=== PATIENT | male | born 1940 | race Caucasian/White ===

== ENCOUNTER 2019-03-11 12:37 | Inpatient (IN) | payer MEDICARE, BC ==
[~2019-03-11] VITALS: Ht 182.9 cm; Wt 86.0 kg
[2019-03-11] MEDS ORDERED: IPRATRPIUM/ALBUTEROL 0.5/2.5MG 3 ML NEBU. NEB ONE (13:15)
--- NOTE | 2019-03-11 13:21 | PHYS DOC ---
Adult General Chief Complaint Chief Complaint: SHORTNESS OF BREATH HPI HPI Patient is a 79-year-old male who presents with complaint of shortness of breath for the last several days but has been worse since Thursday. Patient states that shortness of breath is worsened with exertion. He denies any chest pain. Patient recently had been started on 2 new medications to include an antibiotic as well as Coreg. Patient does have a history of COPD. Patient's indicates that usually the COPD as well managed. Patient is had no fever. Patient was being seen over at a new doctor's office and was instructed to come to the emergency room because of elevated creatinine as well as concerns for possible pneumonia.[] Review of Systems Review of Systems Constitutional: Denies fever or chills [] Respiratory: Positive cough and shortness of breath [] Cardiovascular: No additional information not addressed in HPI [] GI: Denies abdominal pain, nausea, vomiting or diarrhea [] Integument: Denies rash or skin lesions [] Neurologic: Denies headache, focal weakness or sensory changes [] All other systems were reviewed and found to be within normal limits, except as documented in this note. Current Medications Current Medications Current Medications Medications (Trade) Dose Ordered Sig/Diane Start Time Stop Time Status Last Admin Dose Admin Albuterol/ Ipratropium (Duoneb) 3 ml 1X ONCE 03/11/19 13:15 03/11/19 13:27 DC 03/11/19 13:28 3 ML Allergies Allergies Allergies Coded Allergies Type Severity Reaction Last Updated Verified regadenoson Allergy Severe Anaphylaxis 03/11/19 Yes Nitrofuran Analogues Allergy Mild rash 03/11/19 Yes dutasteride Allergy Mild rash 03/11/19 Yes finasteride Allergy Mild hives 03/11/19 Yes Iodinated Contrast Media Allergy Unknown 03/11/19 Yes NSAIDS (Non-Steroidal Anti-Inflamma Adverse Reaction Unknown 03/11/19 Yes Uncoded Allergies Type Severity Reaction Last Updated Verified diuretics Adverse Reaction Unknown 03/11/19 Physical Exam Physical Exam Constitutional: Well developed, well nourished, no acute distress, non-toxic appearance. [] HENT: Normocephalic, atraumatic, bilateral external ears normal, oropharynx moist, no oral exudates, nose normal. [] Eyes: PERRLA, EOMI, conjunctiva normal, no discharge. [] Neck: Normal range of motion, no tenderness, supple. [] Cardiovascular: Mildly bradycardic rate with regular rhythm[] Lungs & Thorax: Rales are noted in the lung bases bilaterally to auscultation [] Abdomen: Bowel sounds normal, soft, no tenderness. [] Skin: Warm, dry, no erythema, no rash. [] Extremities: No tenderness, no cyanosis, no clubbing, ROM intact, with 3+ lower extremity pitting edema. [] Neurologic: Alert and oriented X 3, no focal deficits noted. [] Current Patient Data Vital Signs Vital Signs Date Time Temp Pulse Resp B/P (MAP) Pulse Ox O2 Delivery O2 Flow Rate FiO2 03/11/19 13:29 97 Room Air 03/11/19 13:00 98.0 50 20 163/62 (95) 98.0 Lab Values Laboratory Tests Test 03/11/19 13:45 03/11/19 14:40 White Blood Count 4.6 x10^3/uL (4.0-11.0) Red Blood Count 2.51 x10^6/uL (4.30-5.70) L Hemoglobin 7.7 g/dL (13.0-17.5) L Hematocrit 22.7 % (39.0-53.0) L Mean Corpuscular Volume 91 fL (79-100) Mean Corpuscular Hemoglobin 31 pg (25-35) Mean Corpuscular Hemoglobin Concent 34 g/dL (31-37) Red Cell Distribution Width 16.0 % (11.5-14.5) H Platelet Count 136 x10^3/uL (140-400) L Neutrophils (%) (Auto) 64 % (31-73) Lymphocytes (%) (Auto) 20 % (24-48) L Monocytes (%) (Auto) 8 % (0-9) Eosinophils (%) (Auto) 7 % (0-3) H Basophils (%) (Auto) 1 % (0-3) Neutrophils # (Auto) 3.0 x10^3/uL (1.8-7.7) Lymphocytes # (Auto) 0.9 x10^3/uL (1.0-4.8) L Monocytes # (Auto) 0.3 x10^3/uL (0.0-1.1) Eosinophils # (Auto) 0.3 x10^3/uL (0.0-0.7) Basophils # (Auto) 0.0 x10^3/uL (0.0-0.2) Sodium Level 137 mmol/L (136-145) Potassium Level 3.9 mmol/L (3.5-5.1) Chloride Level 105 mmol/L (98-107) Carbon Dioxide Level 24 mmol/L (21-32) Anion Gap 8 (6-14) Blood Urea Nitrogen 37 mg/dL (8-26) H Creatinine 3.8 mg/dL (0.7-1.3) H Estimated GFR (Cockcroft-Gault) 15.5 BUN/Creatinine Ratio 10 (6-20) Glucose Level 142 mg/dL (70-99) H Lactic Acid Level 1.3 mmol/L (0.4-2.0) Calcium Level 7.5 mg/dL (8.5-10.1) L Total Bilirubin 0.2 mg/dL (0.2-1.0) Aspartate Amino Transferase (AST) 22 U/L (15-37) Alanine Aminotransferase (ALT) 18 U/L (16-63) Alkaline Phosphatase 94 U/L (46-116) Troponin I Quantitative 0.029 ng/mL (0.000-0.055) CS-Rdi-K-Type Natriuretic Peptide 7222 pg/mL (0-449) H Total Protein 5.7 g/dL (6.4-8.2) L Albumin 2.3 g/dL (3.4-5.0) L Albumin/Globulin Ratio 0.7 (1.0-1.7) L Urine Collection Type U cath Urine Color Yellow Urine Clarity Cloudy Urine pH 6.5 Urine Specific Hibbs 1.020 Urine Protein >=300 mg/dL (NEG-TRACE) Urine Glucose (UA) 100 mg/dL (NEG) Urine Ketones (Stick) Negative mg/dL (NEG) Urine Blood Small (NEG) Urine Nitrite Negative (NEG) Urine Bilirubin Negative (NEG) Urine Urobilinogen Dipstick 0.2 mg/dL (0.2 mg/dL) Urine Leukocyte Esterase Negative (NEG) Urine RBC 3-5 /HPF (0-2) Urine WBC Rare /HPF (0-4) Urine Squamous Epithelial Cells Occ /LPF Urine Amorphous Sediment Present /HPF Urine Bacteria 0 /HPF (0-FEW) Laboratory Tests 03/11/19 13:45 Laboratory Tests 03/11/19 13:45 EKG EKG [] Radiology/Procedures Radiology/Procedures [] Impressions: PROCEDURE: PORTABLE CHEST 1V Examination: PORTABLE CHEST 1V History: Shortness of breath Comparison/Correlation: None Findings: Portable upright frontal view the chest was obtained. Heart size is slightly enlarged. No pneumothorax. Subtle blunting of the left costophrenic angle is noted. Mild left basilar atelectasis or infiltrate noted. Bony structures are unremarkable. Impression: Left medial basilar retrocardiac atelectasis or possibly infiltrate. Electronically signed by: Luke Laguna MD (03/11/2019 1:55 PM) [facility] Course & Med Decision Making Course & Med Decision Making Pertinent Labs and Imaging studies reviewed. (See chart for details) [] Dragon Disclaimer Dragon Disclaimer This electronic medical record was generated, in whole or in part, using a voice recognition dictation system. Departure Departure Impression: Primary Impression: [id number] kidney injury Additional Impression: Dyspnea Disposition: 09 ADMITTED INPATIENT Admitting Physician: TYSON (Dr. Wilburn) Condition: IMPROVED Problem Qualifiers Primary Impression: Hvrao-[id number] kidney injury Acute renal failure type: unspecified Chronic kidney disease stage: un specified stage Qualified Codes: N17.9 - Acute kidney failure, unspecified; N18.9 - Chronic kidney disease, unspecified Additional Impression: Dyspnea Dyspnea type: unspecified Qualified Codes: R06.00 - Dyspnea, unspecified NANCI DE LA VEGA Jr. DO Mar 11, 2019 13:21
--- NOTE | 2019-03-11 13:26 | EKG ---
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
[2019-03-11 13:57] LABS: BASO % 1 % (0-3); EOS # 0.3 x10^3/uL (0.0-0.7); EOS % 7 % (0-3); HEMATOCRIT 22.7 % (39.0-53.0); HEMOGLOBIN 7.7 g/dL (13.0-17.5); LYMPH # 0.9 x10^3/uL (1.0-4.8); LYMPH % 20 % (24-48); MEAN CORPUSCULAR HEMOGLOBIN 31 pg (25-35); MEAN CORPUSCULAR HGB CONC 34 g/dL (31-37); MEAN CORPUSCULAR VOLUME 91 fL (79-100); MONO # 0.3 x10^3/uL (0.0-1.1); MONO % 8 % (0-9); NEUT % 64 % (31-73); PLATELET COUNT 136 x10^3/uL (140-400); RED BLOOD COUNT 2.51 x10^6/uL (4.30-5.70); WHITE BLOOD COUNT 4.6 x10^3/uL (4.0-11.0)
--- NOTE | 2019-03-11 13:58 | RAD ---
Examination: PORTABLE CHEST 1V History: Shortness of breath Comparison/Correlation: None Findings: Portable upright frontal view the chest was obtained. Heart size is slightly enlarged. No pneumothorax. Subtle blunting of the left costophrenic angle is noted. Mild left basilar atelectasis or infiltrate noted. Bony structures are unremarkable. Impression: Left medial basilar retrocardiac atelectasis or possibly infiltrate. Electronically signed by: Luke Laguna MD (03/11/2019 1:55 PM) [facility]
[2019-03-11 14:07] LABS: CALCIUM 7.5 mg/dL (8.5-10.1); CREATININE 3.8 mg/dL (0.7-1.3); GFR 15.5; POTASSIUM 3.9 mmol/L (3.5-5.1)
[2019-03-11 14:13] LABS: ALBUMIN 2.3 g/dL (3.4-5.0); ALBUMIN/GLOBULIN RATIO 0.7 (1.0-1.7); TOTAL BILIRUBIN 0.2 mg/dL (0.2-1.0); TOTAL PROTEIN 5.7 g/dL (6.4-8.2)
[2019-03-11 14:50] LABS: BILIRUBIN,URINE NEGATIVE (NEG); CLARITY,URINE CLOUDY; COLOR,URINE YELLOW; NITRITE,URINE NEGATIVE (NEG); PH,URINE 6.5; PROTEIN,URINE >=300 mg/dL (NEG-TRACE); UROBILINOGEN,URINE 0.2 mg/dL (0.2 mg/dL)
[2019-03-11 15:02] LABS: SQUAMOUS EPITHELIAL CELL,UR OCC /LPF; WBC,URINE RARE /HPF (0-4)
[2019-03-11 15:03] LABS: AMORPHOUS SEDIMENT,UR PRESENT /HPF; BACTERIA,URINE 0 /HPF (0-FEW)
[2019-03-11] MEDS: IV NORMAL SALINE 1000ML BAG 1,000 ML IV SCH ×2 (16:37→19:09)
--- NOTE | 2019-03-11 18:50 | HP ---
ADMIT DATE: 03/11/2019 CHIEF COMPLAINT: Shortness of breath and weakness. HISTORY OF PRESENT ILLNESS: The patient is a pleasant 79-year-old male who has been developing shortness of breath with ambulation. He describes it as worse with movement, better with sitting still. He rates it at 8/10. He has some associated minimal edema. We did a chest x-ray here in the ER showing some vascular congestion. He has a baseline creatinine of 2.1. We did some labs showing a creatinine of 3.9, so he has a combination of heart failure and acute kidney injury. I discussed the case with ER physician. We are going to admit the patient and consult Nephrology and Cardiology. We hope to diurese him and we are giving fluids. PAST MEDICAL HISTORY: COPD and he continues to smoke, multiple allergies, hypertension, anxiety, CHF, atrial flutter, and atrial fibrillation. ALLERGIES: NSAIDs, NITROFURANTOIN, DIURETICS, and FINASTERIDE. FAMILY HISTORY: Coronary artery disease and his grandson apparently developed bad heart failure at a young age. SOCIAL HISTORY: He has been for 53 years. He does not drink, smoke, or take drugs. 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 MEDICATIONS: Reviewed. Please refer to the MRAD. He is on Coreg and aspirin. REVIEW OF SYSTEMS: GENERAL: He complains of weakness. SKIN: No bruising, hair changes or rashes. EYES: No blurred, double or loss of vision. NOSE AND THROAT: No history of nosebleeds, hoarseness or sore throat. HEART: No history of palpitations, chest pain or shortness of breath on exertion. LUNGS: He complains of shortness of breath. GASTROINTESTINAL: Denies changes in appetite, nausea, vomiting, diarrhea or constipation. GENITOURINARY: No history of frequency, urgency, hesitancy or nocturia. NEUROLOGIC: Denies history of numbness, tingling, tremor or weakness. PSYCHIATRIC: No history of panic, anxiety or depression. ENDOCRINE: No history of heat or cold intolerance, polyuria or polydipsia. EXTREMITIES: Denies muscle weakness, joint pain, pain on walking or stiffness. PHYSICAL EXAMINATION: VITALS: Temperature 98, pulse 50, respirations 20, blood pressure is 163/62, and O2 sat 97% on room air. GENERAL: He is alert, cooperative. His and daughter are present, they seem to be very good support for him. HEENT: Normal cephalic atraumatic, external auditory canals are patent EYES: Extraocular muscles are intact, pupils are equally round and reactive to light and accommodation MUSKULOSKELETAL: Well developed, well nourished, good range of motion ENDOCRINE: No thyromegaly was palpated LYMPHATICS: No cervical chain or axillary nodes were noted HEMATOPOIETIC: No bruising NECK: Supple, no JVD, no thyromegaly was noted. LUNGS: Bibasilar crackles, but they are fine. He has a slight wheeze on the right. HEART: Distant S1, S2 with a soft S3. ABDOMEN: Soft. EXTREMITIES: Trace edema. NEUROLOGIC: Normal speech, normal tone. A & O x3, moves all extremities, no obvious focal deficits. PSYCHIATRIC: He is a little anxious. SKIN: No ulcerations or rashes, good skin turgor, no jaundice. VASCULAR: Good capillary refill, neurovascular bundle appears to be intact. LABORATORY DATA: White count 4, hemoglobin 7.7, platelets 136. Electrolytes are normal other than his calcium level is low at 7.5. His BUN and creatinine are 37 and 3.8 respectively. Urinalysis: Small amount of blood, but otherwise negative. BNP is 7222. Chest x-ray shows vascular congestion by my eye. ASSESSMENT AND PLAN: Acute on chronic renal failure secondary to volume overload, anemia, hypocalcemia, and azotemia. These are all markers for chronic renal failure. At his age, using the Cockcroft-Gault formula, I estimate his GFR to be around 16. Consult Nephrology, consult Cardiology, cardiac monitoring. I suspect he will need an echocardiogram, home meds, DVT prophylaxis, and full code. PROGNOSIS: Long-term guarded. KONSTANTIN VILLATORO DO DR: LINDA/stephanie JOB#: [id number] / [id number]
[2019-03-11 19:15] VITALS: BP 172/62
[2019-03-11] MEDS: IPRATRPIUM/ALBUTEROL 0.5/2.5MG 3 ML NEBU. NEB SCH (19:45)
[2019-03-11] MEDS ORDERED: BUDE10.2 IH (22:03)
[2019-03-11] MEDS ORDERED: BUPR150T6 PO (22:03)
[2019-03-11] MEDS ORDERED: VENTOLIN HFA18 GM INH (22:03)
[2019-03-11] MEDS ORDERED: MULT-245 PO (22:03)
[2019-03-11] MEDS ORDERED: AMLO5TAB10 PO (22:03)
[2019-03-11] MEDS ORDERED: RIVA15TA PO (22:03)
[2019-03-11] MEDS ORDERED: SIMV20TA18 PO (22:03)
[2019-03-11] MEDS ORDERED: CARV6.2511 PO (22:03)
[2019-03-11] MEDS ORDERED: TAMS0.4C97 PO (22:03)
[2019-03-11] MEDS ORDERED: PANT40TA77 PO (22:03)
[2019-03-11] MEDS ORDERED: DIPH50CA PO (22:03)
[2019-03-11] MEDS ORDERED: diphenhydrAMINE HCL 25 MG CAPSULE PO PRN (22:30)
[2019-03-11] MEDS: amLODIPine BESYLATE 5 MG TABLET PO SCH (22:38)
[2019-03-11] MEDS: RIVAROXABAN 15 MG TABLET. PO SCH (22:38)
[2019-03-11] MEDS: TAMSULOSIN 0.4 MG CAP.ER.24H. PO SCH (22:38)
[2019-03-11] MEDS: SIMVASTATIN 20 MG TABLET PO SCH (22:38)
[2019-03-11 23:43] VITALS: BP 177/54
[2019-03-12] MEDS: IV NORMAL SALINE 1000ML BAG 1,000 ML IV SCH (00:22)
[2019-03-12 03:50] VITALS: BP 174/66
[2019-03-12 07:00] VITALS: BP 118/46
[2019-03-12 07:26] LABS: BASO % 0 % (0-3); EOS # 0.3 x10^3/uL (0.0-0.7); EOS % 6 % (0-3); HEMATOCRIT 22.8 % (39.0-53.0); HEMOGLOBIN 7.7 g/dL (13.0-17.5); LYMPH # 0.9 x10^3/uL (1.0-4.8); LYMPH % 15 % (24-48); MEAN CORPUSCULAR HEMOGLOBIN 31 pg (25-35); MEAN CORPUSCULAR HGB CONC 34 g/dL (31-37); MEAN CORPUSCULAR VOLUME 90 fL (79-100); MONO # 0.5 x10^3/uL (0.0-1.1); MONO % 8 % (0-9); NEUT # 4.4 x10^3/uL (1.8-7.7); NEUT % 71 % (31-73); PLATELET COUNT 144 x10^3/uL (140-400); RED BLOOD COUNT 2.52 x10^6/uL (4.30-5.70); RED CELL DISTRIBUTION WIDTH 15.9 % (11.5-14.5); WHITE BLOOD COUNT 6.2 x10^3/uL (4.0-11.0)
[2019-03-12 07:35] LABS: CALCIUM 7.9 mg/dL (8.5-10.1); CREATININE 3.9 mg/dL (0.7-1.3); GFR 15.1; POTASSIUM 3.9 mmol/L (3.5-5.1)
[2019-03-12] MEDS: IPRATRPIUM/ALBUTEROL 0.5/2.5MG 3 ML NEBU. NEB SCH ×2 (07:56→12:07)
[2019-03-12] MEDS: BUDESONIDE 0.5 MG/2 ML NEBU. NEB SCH ×2 (07:57→19:30)
[2019-03-12] MEDS: CARVEDILOL 6.25 MG TABLET. PO SCH ×2 (08:23→17:33)
[2019-03-12] MEDS: buPROPion XL 150 MG TAB.ER.24H. PO SCH (08:23)
[2019-03-12] MEDS: MULTIVITAMIN with MINERAL TABLET. PO SCH (08:23)
[2019-03-12] MEDS: PANTOPRAZOLE 40 MG TABLET.DR. PO SCH ×2 (08:23→17:33)
[2019-03-12] MEDS: amLODIPine BESYLATE 5 MG TABLET PO SCH ×2 (08:23→20:53)
[2019-03-12] MEDS: TAMSULOSIN 0.4 MG CAP.ER.24H. PO SCH ×2 (08:23→20:53)
[2019-03-12] MEDS ORDERED: NON FORMULARY ITEM (Albuterol Sulfate (Ventolin Hfa Inhaler) 2 PUFF) INH SCH (09:00)
[2019-03-12] MEDS ORDERED: NON FORMULARY ITEM (Budesonide/Formoterol Fumarate (Symbicort 160-4.5 Mcg Inhaler) 2 PUFF) IH SCH (09:00)
--- NOTE | 2019-03-12 09:52 | PDOC ---
PROGRESS NOTES History of Present Illness History of Present Illness ASSESSMENT Acute on chronic renal failure secondary to volume overload, anemia, hypocalcemia, azotemia. chronic renal failure. stage 4-5 hypoxic episode resolved Left medial basilar retrocardiac atelectasis or possibly infiltrate. PROTEINURIA admit Consult Nephrology, consult Cardiology, cardiac monitoring. echocardiogram, home meds, DVT prophylaxis, full code. pulm consult IS 36 min pt exam, chart review , pt exam, > 50% of time spent with exam, chart review, pt care coordination Vitals Vitals Vital Signs Date Time Temp Pulse Resp B/P (MAP) Pulse Ox O2 Delivery O2 Flow Rate FiO2 03/12/19 08:23 59 174/66 03/12/19 07:59 99 Room Air 03/12/19 07:00 98.0 16 2.0 98.0 Physical Exam Physical Exam GENERAL: He is alert, cooperative. His IS present, HEENT: Normal cephalic atraumatic, external auditory canals are patent EYES: Extraocular muscles are intact, pupils are equally round and reactive to light and accommodation MUSKULOSKELETAL: Well developed, well nourished, good range of motion ENDOCRINE: No thyromegaly was palpated LYMPHATICS: No cervical chain or axillary nodes were noted HEMATOPOIETIC: No bruising NECK: Supple, no JVD, no thyromegaly was noted. LUNGS: Bibasilar crackles, but they are fine. He has a slight wheeze on the right. HEART: Distant S1, S2 with a soft S3. ABDOMEN: Soft. EXTREMITIES: Trace edema. NEUROLOGIC: Normal speech, normal tone. A & O x3, moves all extremities, no obvious focal deficits. PSYCHIATRIC: He is a little anxious. SKIN: No ulcerations or rashes, good skin turgor, no jaundice. VASCULAR: Good capillary refill, neurovascular bundle appears to be intact. General: Alert, Oriented X3, Cooperative, No acute distress Heart: Regular rate, Normal S1 Lungs: Crackles Abdomen: Normal bowel sounds, Soft, No tenderness Extremities: No cyanosis Skin: No significant lesion Labs LABS PROCEDURE: PORTABLE CHEST 1V Examination: PORTABLE CHEST 1V History: Shortness of breath Comparison/Correlation: None Findings: Portable upright frontal view the chest was obtained. Heart size is slightly enlarged. No pneumothorax. Subtle blunting of the left costophrenic angle is noted. Mild left basilar atelectasis or infiltrate noted. Bony structures are unremarkable. Impression: Left medial basilar retrocardiac atelectasis or possibly infiltrate. Electronically signed by: Mindy Downey MD (03/11/2019 1:55 PM) [facility] DICTATED and SIGNED BY: MINDY DOWNEY MD DATE: 03/11/19 1351 Laboratory Tests Test 03/11/19 13:45 03/11/19 14:40 03/12/19 06:45 White Blood Count 4.6 x10^3/uL (4.0-11.0) 6.2 x10^3/uL (4.0-11.0) Red Blood Count 2.51 x10^6/uL (4.30-5.70) 2.52 x10^6/uL (4.30-5.70) Hemoglobin 7.7 g/dL (13.0-17.5) 7.7 g/dL (13.0-17.5) Hematocrit 22.7 % (39.0-53.0) 22.8 % (39.0-53.0) Mean Corpuscular Volume 91 fL (79-100) 90 fL (79-100) Mean Corpuscular Hemoglobin 31 pg (25-35) 31 pg (25-35) Mean Corpuscular Hemoglobin Concent 34 g/dL (31-37) 34 g/dL (31-37) Red Cell Distribution Width 16.0 % (11.5-14.5) 15.9 % (11.5-14.5) Platelet Count 136 x10^3/uL (140-400) 144 x10^3/uL (140-400) Neutrophils (%) (Auto) 64 % (31-73) 71 % (31-73) Lymphocytes (%) (Auto) 20 % (24-48) 15 % (24-48) Monocytes (%) (Auto) 8 % (0-9) 8 % (0-9) Eosinophils (%) (Auto) 7 % (0-3) 6 % (0-3) Basophils (%) (Auto) 1 % (0-3) 0 % (0-3) Neutrophils # (Auto) 3.0 x10^3/uL (1.8-7.7) 4.4 x10^3/uL (1.8-7.7) Lymphocytes # (Auto) 0.9 x10^3/uL (1.0-4.8) 0.9 x10^3/uL (1.0-4.8) Monocytes # (Auto) 0.3 x10^3/uL (0.0-1.1) 0.5 x10^3/uL (0.0-1.1) Eosinophils # (Auto) 0.3 x10^3/uL (0.0-0.7) 0.3 x10^3/uL (0.0-0.7) Basophils # (Auto) 0.0 x10^3/uL (0.0-0.2) 0.0 x10^3/uL (0.0-0.2) Sodium Level 137 mmol/L (136-145) 140 mmol/L (136-145) Potassium Level 3.9 mmol/L (3.5-5.1) 3.9 mmol/L (3.5-5.1) Chloride Level 105 mmol/L (98-107) 107 mmol/L (98-107) Carbon Dioxide Level 24 mmol/L (21-32) 24 mmol/L (21-32) Anion Gap 8 (6-14) 9 (6-14) Blood Urea Nitrogen 37 mg/dL (8-26) 38 mg/dL (8-26) Creatinine 3.8 mg/dL (0.7-1.3) 3.9 mg/dL (0.7-1.3) Estimated GFR (Cockcroft-Gault) 15.5 15.1 BUN/Creatinine Ratio 10 (6-20) Glucose Level 142 mg/dL (70-99) 88 mg/dL (70-99) Lactic Acid Level 1.3 mmol/L (0.4-2.0) Calcium Level 7.5 mg/dL (8.5-10.1) 7.9 mg/dL (8.5-10.1) Total Bilirubin 0.2 mg/dL (0.2-1.0) Aspartate Amino Transf (AST/SGOT) 22 U/L (15-37) Alanine Aminotransferase (ALT/SGPT) 18 U/L (16-63) Alkaline Phosphatase 94 U/L (46-116) Troponin I Quantitative 0.029 ng/mL (0.000-0.055) SD-Ivu-X-Type Natriuretic Peptide 7222 pg/mL (0-449) Total Protein 5.7 g/dL (6.4-8.2) Albumin 2.3 g/dL (3.4-5.0) Albumin/Globulin Ratio 0.7 (1.0-1.7) Urine Collection Type U cath Urine Color Yellow Urine Clarity Cloudy Urine pH 6.5 Urine Specific [place] 1.020 Urine Protein >=300 mg/dL (NEG-TRACE) Urine Glucose (UA) 100 mg/dL (NEG) Urine Ketones (Stick) Negative mg/dL (NEG) Urine Blood Small (NEG) Urine Nitrite Negative (NEG) Urine Bilirubin Negative (NEG) Urine Urobilinogen Dipstick 0.2 mg/dL (0.2 mg/dL) Urine Leukocyte Esterase Negative (NEG) Urine RBC 3-5 /HPF (0-2) Urine WBC Rare /HPF (0-4) Urine Squamous Epithelial Cells Occ /LPF Urine Amorphous Sediment Present /HPF Urine Bacteria 0 /HPF (0-FEW) Assessment and Plan Assessmemt and Plan Problems Medical Problems: (1) [id number]-[id number] kidney injury Status: Acute (2) Dyspnea Status: Acute Comment Review of Relevant I have reviewed the following items karey (where applicable) has been applied. Labs Laboratory Tests Test 03/11/19 13:45 03/11/19 14:40 03/12/19 06:45 White Blood Count 4.6 x10^3/uL (4.0-11.0) 6.2 x10^3/uL (4.0-11.0) Red Blood Count 2.51 x10^6/uL (4.30-5.70) 2.52 x10^6/uL (4.30-5.70) Hemoglobin 7.7 g/dL (13.0-17.5) 7.7 g/dL (13.0-17.5) Hematocrit 22.7 % (39.0-53.0) 22.8 % (39.0-53.0) Mean Corpuscular Volume 91 fL (79-100) 90 fL (79-100) Mean Corpuscular Hemoglobin 31 pg (25-35) 31 pg (25-35) Mean Corpuscular Hemoglobin Concent 34 g/dL (31-37) 34 g/dL (31-37) Red Cell Distribution Width 16.0 % (11.5-14.5) 15.9 % (11.5-14.5) Platelet Count 136 x10^3/uL (140-400) 144 x10^3/uL (140-400) Neutrophils (%) (Auto) 64 % (31-73) 71 % (31-73) Lymphocytes (%) (Auto) 20 % (24-48) 15 % (24-48) Monocytes (%) (Auto) 8 % (0-9) 8 % (0-9) Eosinophils (%) (Auto) 7 % (0-3) 6 % (0-3) Basophils (%) (Auto) 1 % (0-3) 0 % (0-3) Neutrophils # (Auto) 3.0 x10^3/uL (1.8-7.7) 4.4 x10^3/uL (1.8-7.7) Lymphocytes # (Auto) 0.9 x10^3/uL (1.0-4.8) 0.9 x10^3/uL (1.0-4.8) Monocytes # (Auto) 0.3 x10^3/uL (0.0-1.1) 0.5 x10^3/uL (0.0-1.1) Eosinophils # (Auto) 0.3 x10^3/uL (0.0-0.7) 0.3 x10^3/uL (0.0-0.7) Basophils # (Auto) 0.0 x10^3/uL (0.0-0.2) 0.0 x10^3/uL (0.0-0.2) Sodium Level 137 mmol/L (136-145) 140 mmol/L (136-145) Potassium Level 3.9 mmol/L (3.5-5.1) 3.9 mmol/L (3.5-5.1) Chloride Level 105 mmol/L (98-107) 107 mmol/L (98-107) Carbon Dioxide Level 24 mmol/L (21-32) 24 mmol/L (21-32) Anion Gap 8 (6-14) 9 (6-14) Blood Urea Nitrogen 37 mg/dL (8-26) 38 mg/dL (8-26) Creatinine 3.8 mg/dL (0.7-1.3) 3.9 mg/dL (0.7-1.3) Estimated GFR (Cockcroft-Gault) 15.5 15.1 BUN/Creatinine Ratio 10 (6-20) Glucose Level 142 mg/dL (70-99) 88 mg/dL (70-99) Lactic Acid Level 1.3 mmol/L (0.4-2.0) Calcium Level 7.5 mg/dL (8.5-10.1) 7.9 mg/dL (8.5-10.1) Total Bilirubin 0.2 mg/dL (0.2-1.0) Aspartate Amino Transf (AST/SGOT) 22 U/L (15-37) Alanine Aminotransferase (ALT/SGPT) 18 U/L (16-63) Alkaline Phosphatase 94 U/L (46-116) Troponin I Quantitative 0.029 ng/mL (0.000-0.055) TQ-Kwl-I-Type Natriuretic Peptide 7222 pg/mL (0-449) Total Protein 5.7 g/dL (6.4-8.2) Albumin 2.3 g/dL (3.4-5.0) Albumin/Globulin Ratio 0.7 (1.0-1.7) Urine Collection Type U cath Urine Color Yellow Urine Clarity Cloudy Urine pH 6.5 Urine Specific [place] 1.020 Urine Protein >=300 mg/dL (NEG-TRACE) Urine Glucose (UA) 100 mg/dL (NEG) Urine Ketones (Stick) Negative mg/dL (NEG) Urine Blood Small (NEG) Urine Nitrite Negative (NEG) Urine Bilirubin Negative (NEG) Urine Urobilinogen Dipstick 0.2 mg/dL (0.2 mg/dL) Urine Leukocyte Esterase Negative (NEG) Urine RBC 3-5 /HPF (0-2) Urine WBC Rare /HPF (0-4) Urine Squamous Epithelial Cells Occ /LPF Urine Amorphous Sediment Present /HPF Urine Bacteria 0 /HPF (0-FEW) Laboratory Tests Test 03/11/19 13:45 03/11/19 14:40 03/12/19 06:45 White Blood Count 4.6 x10^3/uL (4.0-11.0) 6.2 x10^3/uL (4.0-11.0) Red Blood Count 2.51 x10^6/uL (4.30-5.70) 2.52 x10^6/uL (4.30-5.70) Hemoglobin 7.7 g/dL (13.0-17.5) 7.7 g/dL (13.0-17.5) Hematocrit 22.7 % (39.0-53.0) 22.8 % (39.0-53.0) Mean Corpuscular Volume 91 fL (79-100) 90 fL (79-100) Mean Corpuscular Hemoglobin 31 pg (25-35) 31 pg (25-35) Mean Corpuscular Hemoglobin Concent 34 g/dL (31-37) 34 g/dL (31-37) Red Cell Distribution Width 16.0 % (11.5-14.5) 15.9 % (11.5-14.5) Platelet Count 136 x10^3/uL (140-400) 144 x10^3/uL (140-400) Neutrophils (%) (Auto) 64 % (31-73) 71 % (31-73) Lymphocytes (%) (Auto) 20 % (24-48) 15 % (24-48) Monocytes (%) (Auto) 8 % (0-9) 8 % (0-9) Eosinophils (%) (Auto) 7 % (0-3) 6 % (0-3) Basophils (%) (Auto) 1 % (0-3) 0 % (0-3) Neutrophils # (Auto) 3.0 x10^3/uL (1.8-7.7) 4.4 x10^3/uL (1.8-7.7) Lymphocytes # (Auto) 0.9 x10^3/uL (1.0-4.8) 0.9 x10^3/uL (1.0-4.8) Monocytes # (Auto) 0.3 x10^3/uL (0.0-1.1) 0.5 x10^3/uL (0.0-1.1) Eosinophils # (Auto) 0.3 x10^3/uL (0.0-0.7) 0.3 x10^3/uL (0.0-0.7) Basophils # (Auto) 0.0 x10^3/uL (0.0-0.2) 0.0 x10^3/uL (0.0-0.2) Sodium Level 137 mmol/L (136-145) 140 mmol/L (136-145) Potassium Level 3.9 mmol/L (3.5-5.1) 3.9 mmol/L (3.5-5.1) Chloride Level 105 mmol/L (98-107) 107 mmol/L (98-107) Carbon Dioxide Level 24 mmol/L (21-32) 24 mmol/L (21-32) Anion Gap 8 (6-14) 9 (6-14) Blood Urea Nitrogen 37 mg/dL (8-26) 38 mg/dL (8-26) Creatinine 3.8 mg/dL (0.7-1.3) 3.9 mg/dL (0.7-1.3) Estimated GFR (Cockcroft-Gault) 15.5 15.1 BUN/Creatinine Ratio 10 (6-20) Glucose Level 142 mg/dL (70-99) 88 mg/dL (70-99) Lactic Acid Level 1.3 mmol/L (0.4-2.0) Calcium Level 7.5 mg/dL (8.5-10.1) 7.9 mg/dL (8.5-10.1) Total Bilirubin 0.2 mg/dL (0.2-1.0) Aspartate Amino Transf (AST/SGOT) 22 U/L (15-37) Alanine Aminotransferase (ALT/SGPT) 18 U/L (16-63) Alkaline Phosphatase 94 U/L (46-116) Troponin I Quantitative 0.029 ng/mL (0.000-0.055) PD-Hra-T-Type Natriuretic Peptide 7222 pg/mL (0-449) Total Protein 5.7 g/dL (6.4-8.2) Albumin 2.3 g/dL (3.4-5.0) Albumin/Globulin Ratio 0.7 (1.0-1.7) Urine Collection Type U cath Urine Color Yellow Urine Clarity Cloudy Urine pH 6.5 Urine Specific [place] 1.020 Urine Protein >=300 mg/dL (NEG-TRACE) Urine Glucose (UA) 100 mg/dL (NEG) Urine Ketones (Stick) Negative mg/dL (NEG) Urine Blood Small (NEG) Urine Nitrite Negative (NEG) Urine Bilirubin Negative (NEG) Urine Urobilinogen Dipstick 0.2 mg/dL (0.2 mg/dL) Urine Leukocyte Esterase Negative (NEG) Urine RBC 3-5 /HPF (0-2) Urine WBC Rare /HPF (0-4) Urine Squamous Epithelial Cells Occ /LPF Urine Amorphous Sediment Present /HPF Urine Bacteria 0 /HPF (0-FEW) Medications Current Medications Albuterol/ Ipratropium (Duoneb) 3 ml 1X ONCE NEB Last administered on 03/11/19 13:28; Start 03/11/19 at 13:15; Stop 03/11/19 at 13:27; Status DC Sodium Chloride 1,000 ml @ 125 mls/hr Q8H IV Last administered on 03/11/19 19:09; Start 03/11/19 at 16:29; Stop 03/12/19 at 16:28 Albuterol/ Ipratropium (Duoneb) 3 ml RTQID NEB Last administered on 03/12/19 07:56; Start 03/11/19 at 20:00; Stop 03/12/19 at 19:59 Amlodipine Besylate (Norvasc) 5 mg BID PO Last administered on 03/12/19 08:23; Start 03/11/19 at 22:30 Bupropion HCl (Wellbutrin Xl) 150 mg DAILY PO Last administered on 03/12/19 08:23; Start 03/12/19 at 09:00 Carvedilol (Coreg) 6.25 mg BIDWMEALS PO Last administered on 03/12/19 08:23; Start 03/12/19 at 08:00 Pantoprazole Sodium (Protonix) 40 mg BIDAC PO Last administered on 03/12/19 08:23; Start 03/12/19 at 07:30 Rivaroxaban (Xarelto) 15 mg QHS PO Last administered on 03/11/19 22:38; Start 03/11/19 at 22:30 Simvastatin (Zocor) 20 mg HS PO Last administered on 03/11/19 22:38; Start 03/11/19 at 22:30 Tamsulosin HCl (Flomax) 0.4 mg BID PO Last administered on 03/12/19 08:23; Start 03/11/19 at 22:30 Non-Formulary Medication (Albuterol Sulfate (Ventolin Hfa Inhaler)) 2 puff QID INH ; Start 03/12/19 at 09:00; Status UNV Non-Formulary Medication (Budesonide/ Formoterol Fumarate (Symbicort 160-4.5 Mcg Inhaler)) 2 puff BID IH ; Start 03/12/19 at 09:00; Status UNV Diphenhydramine HCl (Benadryl) 50 mg PRN Q6HRS PRN PO ITCHING; Start 03/11/19 at 22:30 Multivitamins (Thera M Plus) 1 tab DAILY PO Last administered on 03/12/19at 08:23; Start 03/12/19 at 09:00 Budesonide (Pulmicort) 0.5 mg RTBID NEB Last administered on 03/12/19at 07:57; Start 03/12/19 at 08:00 Active Scripts Active Reported Xarelto (Rivaroxaban) 15 Mg Tablet 15 Mg PO QHS Flomax (Tamsulosin Hcl) 0.4 Mg Cap.er.24h 0.4 Mg PO BID Simvastatin 20 Mg Tablet 20 Mg PO HS Pantoprazole Sodium (Pantoprazole Sodium) 40 Mg Tablet.dr 40 Mg PO BID Multi Vitamin Daily (Multivitamin) 1 Each Tablet 1 Tab PO DAILY 30 Days Diphenhydramine Hcl 50 Mg Capsule 50 Mg PO Q6HRS PRN Carvedilol (Carvedilol) 6.25 Mg Tablet 6.25 Mg PO BIDWMEALS Bupropion Xl (Bupropion Hcl) 150 Mg Tab.er.24h 150 Mg PO QAM Symbicort 160-4.5 Mcg Inhaler (Budesonide/Formoterol Fumarate) 10.2 Gm Hfa.aer.ad 2 Puff IH BID Amlodipine Besylate 5 Mg Tablet 5 Mg PO BID Ventolin Hfa Inhaler (Albuterol Sulfate) 18 Gm Hfa.aer.ad 2 Puff INH QID Vitals/I & O Vital Sign - Last 24 Hours 03/11/19 03/11/19 03/11/19 03/11/19 13:00 13:29 13:33 14:03 Temp 98.0 98.0 Pulse 50 48 52 Resp 20 20 20 B/P (MAP) 163/62 (95) 153/61 (91) 126/66 (86) Pulse Ox 99 97 97 95 O2 Delivery Room Air Room Air Room Air 03/11/19 03/11/19 03/11/19 03/11/19 14:33 15:33 16:03 16:33 Pulse 58 50 54 66 Resp 20 20 20 16 B/P (MAP) 163/77 (105) 158/69 (98) 151/62 (91) 150/71 (97) Pulse Ox 98 95 95 97 O2 Delivery Room Air 03/11/19 03/11/19 03/11/19 03/11/19 17:03 17:33 18:03 18:33 Pulse 54 54 60 54 Resp 16 16 20 20 B/P (MAP) 170/63 (98) 169/62 (97) 172/65 (100) 163/82 (109) Pulse Ox 97 97 96 97 O2 Delivery Room Air 03/11/19 03/11/19 03/11/19 03/11/19 19:09 19:15 19:45 22:38 Temp 97.7 97.7 Pulse 60 60 Resp 20 B/P (MAP) 172/62 (98) 172/62 Pulse Ox 97 97 O2 Delivery Room Air Room Air Room Air 03/11/19 03/12/19 03/12/19 03/12/19 23:43 03:50 07:00 07:59 Temp 98.2 98.5 98.0 98.2 98.5 98.0 Pulse 62 59 59 Resp 20 18 16 B/P (MAP) 177/54 (95) 174/66 (102) 118/46 (70) Pulse Ox 95 93 95 99 O2 Delivery Room Air Room Air Nasal Cannula Room Air O2 Flow Rate 2.0 03/12/19 03/12/19 03/12/19 07:59 08:23 08:23 Pulse 59 59 B/P (MAP) 174/66 174/66 Pulse Ox 99 O2 Delivery Room Air Intake and Output 03/11/19 03/11/19 03/12/19 15:00 23:00 07:00 Intake Total 0 ml 1139 ml Output Total 400 ml 750 ml Balance -400 ml 0 ml 389 ml TANVIR CARRASCO MD Mar 12, 2019 09:52
[2019-03-12 11:00] VITALS: BP 163/45
--- NOTE | 2019-03-12 11:57 | PDOC2 ---
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 HX OF CHF. HAS BEEN FOLLOWING [facility] IN [place]. HAS HAD CKD STAGE 3 TO 4 PER . CR NOW OF 3.8 WITH HGB OF 7.7. HAS SIGNIFICANT LE EDEMA. ALSO HAS SOB, WARD AND PND. UNABLE TO LAY FLAT. NO INFORMATION AVAILABLE FROM HIS PRIOR DOCTORS BUT DIALYSIS HAS BEEN DISCUSSED WITH HIS [employer]ASOLINE TESTER DR ORTEGA. HAS HX OF BPH AND HTN. NO NEPHROTOXINS OR HEMODYNAMIC INSTABILITY NOTED. CKD DUE TO HTN Past Medical History Cardiovascular: HTN GI: Constipation Heme/Onc: Anemia NOS Renal/: Chronic renal insuff Family History Family History: No Significant Social History Quit ALCOHOL: none Drugs: None Lives: with Family Current Problem List Problem List Problems Medical Problems: (1) [id number] kidney injury Status: Acute (2) Dyspnea Status: Acute Current Medications Current Medications Current Medications Albuterol/ Ipratropium (Duoneb) 3 ml 1X ONCE NEB Last administered on 03/11/19at 13:28; Start 03/11/19 at 13:15; Stop 03/11/19 at 13:27; Status DC Sodium Chloride 1,000 ml @ 125 mls/hr Q8H IV Last administered on 03/11/19at 19:09; Start 03/11/19 at 16:29; Stop 03/12/19 at 16:28 Albuterol/ Ipratropium (Duoneb) 3 ml RTQID NEB Last administered on 03/12/19at 07:56; Start 03/11/19 at 20:00; Stop 03/12/19 at 19:59 Amlodipine Besylate (Norvasc) 5 mg BID PO Last administered on 03/12/19at 08:23; Start 03/11/19 at 22:30 Bupropion HCl (Wellbutrin Xl) 150 mg DAILY PO Last administered on 03/12/19at 08:23; Start 03/12/19 at 09:00 Carvedilol (Coreg) 6.25 mg BIDWMEALS PO Last administered on 03/12/19at 08:23; Start 03/12/19 at 08:00 Pantoprazole Sodium (Protonix) 40 mg BIDAC PO Last administered on 03/12/19 08:23; Start 03/12/19 at 07:30 Rivaroxaban (Xarelto) 15 mg QHS PO Last administered on 03/11/19 22:38; Start 03/11/19 at 22:30 Simvastatin (Zocor) 20 mg HS PO Last administered on 03/11/19 22:38; Start 03/11/19 at 22:30 Tamsulosin HCl (Flomax) 0.4 mg BID PO Last administered on 03/12/19 08:23; Start 03/11/19 at 22:30 Non-Formulary Medication (Albuterol Sulfate (Ventolin Hfa Inhaler)) 2 puff QID INH ; Start 03/12/19 at 09:00; Status UNV Non-Formulary Medication (Budesonide/ Formoterol Fumarate (Symbicort 160-4.5 Mcg Inhaler)) 2 puff BID IH ; Start 03/12/19 at 09:00; Status UNV Diphenhydramine HCl (Benadryl) 50 mg PRN Q6HRS PRN PO ITCHING; Start 03/11/19 at 22:30 Multivitamins (Thera M Plus) 1 tab DAILY PO Last administered on 03/12/19 08:23; Start 03/12/19 at 09:00 Budesonide (Pulmicort) 0.5 mg RTBID NEB Last administered on 03/12/19 07:57; Start 03/12/19 at 08:00 Active Scripts Active Reported Xarelto (Rivaroxaban) 15 Mg Tablet 15 Mg PO QHS Flomax (Tamsulosin Hcl) 0.4 Mg Cap.er.24h 0.4 Mg PO BID Simvastatin 20 Mg Tablet 20 Mg PO HS Pantoprazole Sodium (Pantoprazole Sodium) 40 Mg Tablet.dr 40 Mg PO BID Multi Vitamin Daily (Multivitamin) 1 Each Tablet 1 Tab PO DAILY 30 Days Diphenhydramine Hcl 50 Mg Capsule 50 Mg PO Q6HRS PRN Carvedilol (Carvedilol) 6.25 Mg Tablet 6.25 Mg PO BIDWMEALS Bupropion Xl (Bupropion Hcl) 150 Mg Tab.er.24h 150 Mg PO QAM Symbicort 160-4.5 Mcg Inhaler (Budesonide/Formoterol Fumarate) 10.2 Gm Hfa.aer.ad 2 Puff IH BID Amlodipine Besylate 5 Mg Tablet 5 Mg PO BID Ventolin Hfa Inhaler (Albuterol Sulfate) 18 Gm Hfa.aer.ad 2 Puff INH QID Allergies Allergies: Coded Allergies: regadenoson (Verified Allergy, Severe, Anaphylaxis, 03/11/19) Nitrofuran Analogues (Verified Allergy, Mild, rash, 03/11/19) dutasteride (Verified Allergy, Mild, rash, 03/11/19) finasteride (Verified Allergy, Mild, hives, 03/11/19) Iodinated Contrast Media (Verified Allergy, Unknown, 03/11/19) NSAIDS (Non-Steroidal Anti-Inflamma (Verified Adverse Reaction, Unknown, 03/11/19) CKD Uncoded Allergies: diuretics (Adverse Reaction, Unknown, 03/11/19) due to CKD ROS General: YES: Fatigue, Malaise, Appetite PSYCHOLOGICAL ROS: YES: Anxiety, Depression Eyes: Yes Decreased vision HEENT: YES: [place] Respiratory: YES: Cough, Shortness of breath Cardiovascular: yes Orthopnea, yes Paroxysmal Noc. Dyspnea, yes Edema Gastrointestinal: Yes Constipation Genitourinary: YES Frequency Musculoskeletal: Yes Muscular Weakness Neurological: Yes Weakness Skin: Yes Dry Skin Physical Exam General: Alert, Oriented X3, Cooperative, No acute distress HEENT: Atraumatic, PERRLA Lungs: Clear to auscultation Heart: Regular rate Abdomen: Normal bowel sounds, No tenderness Extremities: No cyanosis Skin: No breakdown Neuro: Strength at 5/5 X4 ext, Sensation intact MUSCULOSKELETAL: Other (3+ LE EDEMA) Vitals VITALS Vital Signs Date Time Temp Pulse Resp B/P (MAP) Pulse Ox O2 Delivery O2 Flow Rate FiO2 03/12/19 08:23 59 174/66 03/12/19 07:59 99 Room Air 03/12/19 07:00 98.0 16 2.0 98.0 Labs Labs Laboratory Tests Test 03/11/19 13:45 03/11/19 14:40 03/12/19 06:45 White Blood Count 4.6 x10^3/uL (4.0-11.0) 6.2 x10^3/uL (4.0-11.0) Red Blood Count 2.51 x10^6/uL (4.30-5.70) 2.52 x10^6/uL (4.30-5.70) Hemoglobin 7.7 g/dL (13.0-17.5) 7.7 g/dL (13.0-17.5) Hematocrit 22.7 % (39.0-53.0) 22.8 % (39.0-53.0) Mean Corpuscular Volume 91 fL (79-100) 90 fL (79-100) Mean Corpuscular Hemoglobin 31 pg (25-35) 31 pg (25-35) Mean Corpuscular Hemoglobin Concent 34 g/dL (31-37) 34 g/dL (31-37) Red Cell Distribution Width 16.0 % (11.5-14.5) 15.9 % (11.5-14.5) Platelet Count 136 x10^3/uL (140-400) 144 x10^3/uL (140-400) Neutrophils (%) (Auto) 64 % (31-73) 71 % (31-73) Lymphocytes (%) (Auto) 20 % (24-48) 15 % (24-48) Monocytes (%) (Auto) 8 % (0-9) 8 % (0-9) Eosinophils (%) (Auto) 7 % (0-3) 6 % (0-3) Basophils (%) (Auto) 1 % (0-3) 0 % (0-3) Neutrophils # (Auto) 3.0 x10^3/uL (1.8-7.7) 4.4 x10^3/uL (1.8-7.7) Lymphocytes # (Auto) 0.9 x10^3/uL (1.0-4.8) 0.9 x10^3/uL (1.0-4.8) Monocytes # (Auto) 0.3 x10^3/uL (0.0-1.1) 0.5 x10^3/uL (0.0-1.1) Eosinophils # (Auto) 0.3 x10^3/uL (0.0-0.7) 0.3 x10^3/uL (0.0-0.7) Basophils # (Auto) 0.0 x10^3/uL (0.0-0.2) 0.0 x10^3/uL (0.0-0.2) Sodium Level 137 mmol/L (136-145) 140 mmol/L (136-145) Potassium Level 3.9 mmol/L (3.5-5.1) 3.9 mmol/L (3.5-5.1) Chloride Level 105 mmol/L (98-107) 107 mmol/L (98-107) Carbon Dioxide Level 24 mmol/L (21-32) 24 mmol/L (21-32) Anion Gap 8 (6-14) 9 (6-14) Blood Urea Nitrogen 37 mg/dL (8-26) 38 mg/dL (8-26) Creatinine 3.8 mg/dL (0.7-1.3) 3.9 mg/dL (0.7-1.3) Estimated GFR (Cockcroft-Gault) 15.5 15.1 BUN/Creatinine Ratio 10 (6-20) Glucose Level 142 mg/dL (70-99) 88 mg/dL (70-99) Lactic Acid Level 1.3 mmol/L (0.4-2.0) Calcium Level 7.5 mg/dL (8.5-10.1) 7.9 mg/dL (8.5-10.1) Total Bilirubin 0.2 mg/dL (0.2-1.0) Aspartate Amino Transf (AST/SGOT) 22 U/L (15-37) Alanine Aminotransferase (ALT/SGPT) 18 U/L (16-63) Alkaline Phosphatase 94 U/L (46-116) Troponin I Quantitative 0.029 ng/mL (0.000-0.055) PV-Eyy-T-Type Natriuretic Peptide 7222 pg/mL (0-449) Total Protein 5.7 g/dL (6.4-8.2) Albumin 2.3 g/dL (3.4-5.0) Albumin/Globulin Ratio 0.7 (1.0-1.7) Urine Collection Type U cath Urine Color Yellow Urine Clarity Cloudy Urine pH 6.5 Urine Specific [place] 1.020 Urine Protein >=300 mg/dL (NEG-TRACE) Urine Glucose (UA) 100 mg/dL (NEG) Urine Ketones (Stick) Negative mg/dL (NEG) Urine Blood Small (NEG) Urine Nitrite Negative (NEG) Urine Bilirubin Negative (NEG) Urine Urobilinogen Dipstick 0.2 mg/dL (0.2 mg/dL) Urine Leukocyte Esterase Negative (NEG) Urine RBC 3-5 /HPF (0-2) Urine WBC Rare /HPF (0-4) Urine Squamous Epithelial Cells Occ /LPF Urine Amorphous Sediment Present /HPF Urine Bacteria 0 /HPF (0-FEW) Laboratory Tests Test 03/11/19 13:45 03/11/19 14:40 03/12/19 06:45 White Blood Count 4.6 x10^3/uL (4.0-11.0) 6.2 x10^3/uL (4.0-11.0) Red Blood Count 2.51 x10^6/uL (4.30-5.70) 2.52 x10^6/uL (4.30-5.70) Hemoglobin 7.7 g/dL (13.0-17.5) 7.7 g/dL (13.0-17.5) Hematocrit 22.7 % (39.0-53.0) 22.8 % (39.0-53.0) Mean Corpuscular Volume 91 fL (79-100) 90 fL (79-100) Mean Corpuscular Hemoglobin 31 pg (25-35) 31 pg (25-35) Mean Corpuscular Hemoglobin Concent 34 g/dL (31-37) 34 g/dL (31-37) Red Cell Distribution Width 16.0 % (11.5-14.5) 15.9 % (11.5-14.5) Platelet Count 136 x10^3/uL (140-400) 144 x10^3/uL (140-400) Neutrophils (%) (Auto) 64 % (31-73) 71 % (31-73) Lymphocytes (%) (Auto) 20 % (24-48) 15 % (24-48) Monocytes (%) (Auto) 8 % (0-9) 8 % (0-9) Eosinophils (%) (Auto) 7 % (0-3) 6 % (0-3) Basophils (%) (Auto) 1 % (0-3) 0 % (0-3) Neutrophils # (Auto) 3.0 x10^3/uL (1.8-7.7) 4.4 x10^3/uL (1.8-7.7) Lymphocytes # (Auto) 0.9 x10^3/uL (1.0-4.8) 0.9 x10^3/uL (1.0-4.8) Monocytes # (Auto) 0.3 x10^3/uL (0.0-1.1) 0.5 x10^3/uL (0.0-1.1) Eosinophils # (Auto) 0.3 x10^3/uL (0.0-0.7) 0.3 x10^3/uL (0.0-0.7) Basophils # (Auto) 0.0 x10^3/uL (0.0-0.2) 0.0 x10^3/uL (0.0-0.2) Sodium Level 137 mmol/L (136-145) 140 mmol/L (136-145) Potassium Level 3.9 mmol/L (3.5-5.1) 3.9 mmol/L (3.5-5.1) Chloride Level 105 mmol/L (98-107) 107 mmol/L (98-107) Carbon Dioxide Level 24 mmol/L (21-32) 24 mmol/L (21-32) Anion Gap 8 (6-14) 9 (6-14) Blood Urea Nitrogen 37 mg/dL (8-26) 38 mg/dL (8-26) Creatinine 3.8 mg/dL (0.7-1.3) 3.9 mg/dL (0.7-1.3) Estimated GFR (Cockcroft-Gault) 15.5 15.1 BUN/Creatinine Ratio 10 (6-20) Glucose Level 142 mg/dL (70-99) 88 mg/dL (70-99) Lactic Acid Level 1.3 mmol/L (0.4-2.0) Calcium Level 7.5 mg/dL (8.5-10.1) 7.9 mg/dL (8.5-10.1) Total Bilirubin 0.2 mg/dL (0.2-1.0) Aspartate Amino Transf (AST/SGOT) 22 U/L (15-37) Alanine Aminotransferase (ALT/SGPT) 18 U/L (16-63) Alkaline Phosphatase 94 U/L (46-116) Troponin I Quantitative 0.029 ng/mL (0.000-0.055) ZX-Oah-B-Type Natriuretic Peptide 7222 pg/mL (0-449) Total Protein 5.7 g/dL (6.4-8.2) Albumin 2.3 g/dL (3.4-5.0) Albumin/Globulin Ratio 0.7 (1.0-1.7) Urine Collection Type U cath Urine Color Yellow Urine Clarity Cloudy Urine pH 6.5 Urine Specific [place] 1.020 Urine Protein >=300 mg/dL (NEG-TRACE) Urine Glucose (UA) 100 mg/dL (NEG) Urine Ketones (Stick) Negative mg/dL (NEG) Urine Blood Small (NEG) Urine Nitrite Negative (NEG) Urine Bilirubin Negative (NEG) Urine Urobilinogen Dipstick 0.2 mg/dL (0.2 mg/dL) Urine Leukocyte Esterase Negative (NEG) Urine RBC 3-5 /HPF (0-2) Urine WBC Rare /HPF (0-4) Urine Squamous Epithelial Cells Occ /LPF Urine Amorphous Sediment Present /HPF Urine Bacteria 0 /HPF (0-FEW) Assessment/Plan Assessment/Plan IMP CKD STAGE 4 ANEMIA HTN EDEMA DYSPNEA CHF-PROB SYSTOLIC AND DIASTOLIC PLAN STOP IVF'S ATTEMPT TO DIURESE CHECK IRON CHECK PO4 MAY NEED XIOMARA MAY NEED DIALYSIS 24 HOUR URINE STUDY SUGGEST CARDIOLOGY EVAL AND TX WILL FOLLOW FRANKIE IRELAND MD Mar 12, 2019 11:57
[2019-03-12] MEDS ORDERED: hydrALAZINE 20 MG/ML VIAL. IVP PRN (12:00)
[2019-03-12] MEDS ORDERED: POTASSIUM CHLORIDE 20 MEQ TABLET.ER. PO ONE (12:00)
[2019-03-12] MEDS ORDERED: FUROSEMIDE 40 MG/4 ML VIAL. IVP ONE (12:00)
--- NOTE | 2019-03-12 12:21 | PDOC2 ---
CONSULT Date of Consult Date of Consult DATE: 03/12/19 TIME: 12:16 Reason for Consult Reason for Consult: Shortness of breath. Referring Physician Referring Physician: Dr. Pena Identification/Chief Complaint Chief Complaint Shortness of breath Source Source: Chart review, Patient History of Present Illness Reason for Visit: The patient is a 79-year-old male who was admitted through the emergency room for 3 days of increasing shortness of breath. The patient has a history of COPD and a past history of atrial fibrillation as well as hypertension. He is also been followed for chronic kidney disease. His initial lab shows a creatinine now elevated at 3.9 with troponin of 0.029, a BMP of 7222 and a hemoglobin and hematocrit of 7.7 and 22.8. He's been treated overnight and is feeling better today although still short of breath. He denies chest pain or lightheadedness. Past Medical History Cardiovascular: HTN Pulmonary: COPD GI: Constipation Heme/Onc: Anemia NOS Renal/: Chronic renal insuff Family History Family History: Hypertension Social History No ALCOHOL: none Drugs: None Lives: with Family Current Problem List Problem List Problems Medical Problems: (1) [id number] kidney injury Status: Acute (2) Dyspnea Status: Acute Current Medications Current Medications Current Medications Albuterol/ Ipratropium (Duoneb) 3 ml 1X ONCE NEB Last administered on 03/11/19at 13:28; Start 03/11/19 at 13:15; Stop 03/11/19 at 13:27; Status DC Sodium Chloride 1,000 ml @ 125 mls/hr Q8H IV Last administered on 03/11/19at 19:09; Start 03/11/19 at 16:29; Stop 03/12/19 at 11:59; Status DC Albuterol/ Ipratropium (Duoneb) 3 ml RTQID NEB Last administered on 03/12/19at 07:56; Start 03/11/19 at 20:00; Stop 03/12/19 at 19:59 Amlodipine Besylate (Norvasc) 5 mg BID PO Last administered on 03/12/19at 08:23; Start 03/11/19 at 22:30 Bupropion HCl (Wellbutrin Xl) 150 mg DAILY PO Last administered on 03/12/19at 08:23; Start 03/12/19 at 09:00 Carvedilol (Coreg) 6.25 mg BIDWMEALS PO Last administered on 03/12/19 08:23; Start 03/12/19 at 08:00 Pantoprazole Sodium (Protonix) 40 mg BIDAC PO Last administered on 03/12/19 08:23; Start 03/12/19 at 07:30 Rivaroxaban (Xarelto) 15 mg QHS PO Last administered on 03/11/19 22:38; Start 03/11/19 at 22:30 Simvastatin (Zocor) 20 mg HS PO Last administered on 03/11/19 22:38; Start 03/11/19 at 22:30 Tamsulosin HCl (Flomax) 0.4 mg BID PO Last administered on 03/12/19 08:23; Start 03/11/19 at 22:30 Non-Formulary Medication (Albuterol Sulfate (Ventolin Hfa Inhaler)) 2 puff QID INH ; Start 03/12/19 at 09:00; Status UNV Non-Formulary Medication (Budesonide/ Formoterol Fumarate (Symbicort 160-4.5 Mcg Inhaler)) 2 puff BID IH ; Start 03/12/19 at 09:00; Status UNV Diphenhydramine HCl (Benadryl) 50 mg PRN Q6HRS PRN PO ITCHING; Start 03/11/19 at 22:30 Multivitamins (Thera M Plus) 1 tab DAILY PO Last administered on 03/12/19 08:23; Start 03/12/19 at 09:00 Budesonide (Pulmicort) 0.5 mg RTBID NEB Last administered on 03/12/19at 07:57; Start 03/12/19 at 08:00 Furosemide (Lasix) 40 mg 1X ONCE IVP ; Start 03/12/19 at 12:00; Stop 03/12/19 at 12:03; Status DC Potassium Chloride (Klor-Con) 20 meq 1X ONCE PO ; Start 03/12/19 at 12:00; Stop 03/12/19 at 12:03; Status DC Furosemide (Lasix) 40 mg BID92 PO ; Start 03/12/19 at 14:00 Hydralazine HCl (Apresoline Inj) 10 mg PRN Q4HRS PRN IVP ELEVATED BP, SEE COMMENTS; Start 03/12/19 at 12:00 Active Scripts Active Reported Xarelto (Rivaroxaban) 15 Mg Tablet 15 Mg PO QHS Flomax (Tamsulosin Hcl) 0.4 Mg Cap.er.24h 0.4 Mg PO BID Simvastatin 20 Mg Tablet 20 Mg PO HS Pantoprazole Sodium (Pantoprazole Sodium) 40 Mg Tablet.dr 40 Mg PO BID Multi Vitamin Daily (Multivitamin) 1 Each Tablet 1 Tab PO DAILY 30 Days Diphenhydramine Hcl 50 Mg Capsule 50 Mg PO Q6HRS PRN Carvedilol (Carvedilol) 6.25 Mg Tablet 6.25 Mg PO BIDWMEALS Bupropion Xl (Bupropion Hcl) 150 Mg Tab.er.24h 150 Mg PO QAM Symbicort 160-4.5 Mcg Inhaler (Budesonide/Formoterol Fumarate) 10.2 Gm Hfa.aer.ad 2 Puff IH BID Amlodipine Besylate 5 Mg Tablet 5 Mg PO BID Ventolin Hfa Inhaler (Albuterol Sulfate) 18 Gm Hfa.aer.ad 2 Puff INH QID Allergies Allergies: Coded Allergies: regadenoson (Verified Allergy, Severe, Anaphylaxis, 03/11/19) Nitrofuran Analogues (Verified Allergy, Mild, rash, 03/11/19) dutasteride (Verified Allergy, Mild, rash, 03/11/19) finasteride (Verified Allergy, Mild, hives, 03/11/19) Iodinated Contrast Media (Verified Allergy, Unknown, 03/11/19) NSAIDS (Non-Steroidal Anti-Inflamma (Verified Adverse Reaction, Unknown, 03/11/19) CKD Uncoded Allergies: diuretics (Adverse Reaction, Unknown, 03/11/19) due to CKD ROS General: YES: Fatigue Respiratory: YES: Shortness of breath, SOB with excertion Physical Exam General: mild distress HEENT: Atraumatic Lungs: Other (mildly decreased breath sounds) Heart: Regular rate Abdomen: Normal bowel sounds Vitals VITALS Vital Signs Date Time Temp Pulse Resp B/P (MAP) Pulse Ox O2 Delivery O2 Flow Rate FiO2 03/12/19 08:23 59 174/66 03/12/19 08:00 Room Air 2.0 03/12/19 07:59 99 03/12/19 07:00 98.0 16 98.0 Labs Labs Laboratory Tests Test 03/11/19 13:45 03/11/19 14:40 03/12/19 06:45 White Blood Count 4.6 x10^3/uL (4.0-11.0) 6.2 x10^3/uL (4.0-11.0) Red Blood Count 2.51 x10^6/uL (4.30-5.70) 2.57 x10^6/uL (4.30-5.70) Hemoglobin 7.7 g/dL (13.0-17.5) 7.7 g/dL (13.0-17.5) Hematocrit 22.7 % (39.0-53.0) 22.8 % (39.0-53.0) Mean Corpuscular Volume 91 fL (79-100) 90 fL (79-100) Mean Corpuscular Hemoglobin 31 pg (25-35) 31 pg (25-35) Mean Corpuscular Hemoglobin Concent 34 g/dL (31-37) 34 g/dL (31-37) Red Cell Distribution Width 16.0 % (11.5-14.5) 15.9 % (11.5-14.5) Platelet Count 136 x10^3/uL (140-400) 144 x10^3/uL (140-400) Neutrophils (%) (Auto) 64 % (31-73) 71 % (31-73) Lymphocytes (%) (Auto) 20 % (24-48) 15 % (24-48) Monocytes (%) (Auto) 8 % (0-9) 8 % (0-9) Eosinophils (%) (Auto) 7 % (0-3) 6 % (0-3) Basophils (%) (Auto) 1 % (0-3) 0 % (0-3) Neutrophils # (Auto) 3.0 x10^3/uL (1.8-7.7) 4.4 x10^3/uL (1.8-7.7) Lymphocytes # (Auto) 0.9 x10^3/uL (1.0-4.8) 0.9 x10^3/uL (1.0-4.8) Monocytes # (Auto) 0.3 x10^3/uL (0.0-1.1) 0.5 x10^3/uL (0.0-1.1) Eosinophils # (Auto) 0.3 x10^3/uL (0.0-0.7) 0.3 x10^3/uL (0.0-0.7) Basophils # (Auto) 0.0 x10^3/uL (0.0-0.2) 0.0 x10^3/uL (0.0-0.2) Sodium Level 137 mmol/L (136-145) 140 mmol/L (136-145) Potassium Level 3.9 mmol/L (3.5-5.1) 3.9 mmol/L (3.5-5.1) Chloride Level 105 mmol/L (98-107) 107 mmol/L (98-107) Carbon Dioxide Level 24 mmol/L (21-32) 24 mmol/L (21-32) Anion Gap 8 (6-14) 9 (6-14) Blood Urea Nitrogen 37 mg/dL (8-26) 38 mg/dL (8-26) Creatinine 3.8 mg/dL (0.7-1.3) 3.9 mg/dL (0.7-1.3) Estimated GFR (Cockcroft-Gault) 15.5 15.1 BUN/Creatinine Ratio 10 (6-20) Glucose Level 142 mg/dL (70-99) 88 mg/dL (70-99) Lactic Acid Level 1.3 mmol/L (0.4-2.0) Calcium Level 7.5 mg/dL (8.5-10.1) 7.9 mg/dL (8.5-10.1) Total Bilirubin 0.2 mg/dL (0.2-1.0) Aspartate Amino Transf (AST/SGOT) 22 U/L (15-37) Alanine Aminotransferase (ALT/SGPT) 18 U/L (16-63) Alkaline Phosphatase 94 U/L (46-116) Troponin I Quantitative 0.029 ng/mL (0.000-0.055) KU-Vtb-X-Type Natriuretic Peptide 7222 pg/mL (0-449) Total Protein 5.7 g/dL (6.4-8.2) Albumin 2.3 g/dL (3.4-5.0) Albumin/Globulin Ratio 0.7 (1.0-1.7) Urine Collection Type U cath Urine Color Yellow Urine Clarity Cloudy Urine pH 6.5 Urine Specific [place] 1.020 Urine Protein >=300 mg/dL (NEG-TRACE) Urine Glucose (UA) 100 mg/dL (NEG) Urine Ketones (Stick) Negative mg/dL (NEG) Urine Blood Small (NEG) Urine Nitrite Negative (NEG) Urine Bilirubin Negative (NEG) Urine Urobilinogen Dipstick 0.2 mg/dL (0.2 mg/dL) Urine Leukocyte Esterase Negative (NEG) Urine RBC 3-5 /HPF (0-2) Urine WBC Rare /HPF (0-4) Urine Squamous Epithelial Cells Occ /LPF Urine Amorphous Sediment Present /HPF Urine Bacteria 0 /HPF (0-FEW) Absolute Reticulocyte Count 0.024 x10^6/uL (0.020-0.120) Percent Reticulocyte Count 0.9 % (0.5-2.3) Immature Reticulocyte Fraction 0.40 (0.20-0.60) Laboratory Tests Test 03/11/19 13:45 03/11/19 14:40 03/12/19 06:45 White Blood Count 4.6 x10^3/uL (4.0-11.0) 6.2 x10^3/uL (4.0-11.0) Red Blood Count 2.51 x10^6/uL (4.30-5.70) 2.57 x10^6/uL (4.30-5.70) Hemoglobin 7.7 g/dL (13.0-17.5) 7.7 g/dL (13.0-17.5) Hematocrit 22.7 % (39.0-53.0) 22.8 % (39.0-53.0) Mean Corpuscular Volume 91 fL (79-100) 90 fL (79-100) Mean Corpuscular Hemoglobin 31 pg (25-35) 31 pg (25-35) Mean Corpuscular Hemoglobin Concent 34 g/dL (31-37) 34 g/dL (31-37) Red Cell Distribution Width 16.0 % (11.5-14.5) 15.9 % (11.5-14.5) Platelet Count 136 x10^3/uL (140-400) 144 x10^3/uL (140-400) Neutrophils (%) (Auto) 64 % (31-73) 71 % (31-73) Lymphocytes (%) (Auto) 20 % (24-48) 15 % (24-48) Monocytes (%) (Auto) 8 % (0-9) 8 % (0-9) Eosinophils (%) (Auto) 7 % (0-3) 6 % (0-3) Basophils (%) (Auto) 1 % (0-3) 0 % (0-3) Neutrophils # (Auto) 3.0 x10^3/uL (1.8-7.7) 4.4 x10^3/uL (1.8-7.7) Lymphocytes # (Auto) 0.9 x10^3/uL (1.0-4.8) 0.9 x10^3/uL (1.0-4.8) Monocytes # (Auto) 0.3 x10^3/uL (0.0-1.1) 0.5 x10^3/uL (0.0-1.1) Eosinophils # (Auto) 0.3 x10^3/uL (0.0-0.7) 0.3 x10^3/uL (0.0-0.7) Basophils # (Auto) 0.0 x10^3/uL (0.0-0.2) 0.0 x10^3/uL (0.0-0.2) Sodium Level 137 mmol/L (136-145) 140 mmol/L (136-145) Potassium Level 3.9 mmol/L (3.5-5.1) 3.9 mmol/L (3.5-5.1) Chloride Level 105 mmol/L (98-107) 107 mmol/L (98-107) Carbon Dioxide Level 24 mmol/L (21-32) 24 mmol/L (21-32) Anion Gap 8 (6-14) 9 (6-14) Blood Urea Nitrogen 37 mg/dL (8-26) 38 mg/dL (8-26) Creatinine 3.8 mg/dL (0.7-1.3) 3.9 mg/dL (0.7-1.3) Estimated GFR (Cockcroft-Gault) 15.5 15.1 BUN/Creatinine Ratio 10 (6-20) Glucose Level 142 mg/dL (70-99) 88 mg/dL (70-99) Lactic Acid Level 1.3 mmol/L (0.4-2.0) Calcium Level 7.5 mg/dL (8.5-10.1) 7.9 mg/dL (8.5-10.1) Total Bilirubin 0.2 mg/dL (0.2-1.0) Aspartate Amino Transf (AST/SGOT) 22 U/L (15-37) Alanine Aminotransferase (ALT/SGPT) 18 U/L (16-63) Alkaline Phosphatase 94 U/L (46-116) Troponin I Quantitative 0.029 ng/mL (0.000-0.055) [id number]-[id number]-Type Natriuretic Peptide 7222 pg/mL (0-449) Total Protein 5.7 g/dL (6.4-8.2) Albumin 2.3 g/dL (3.4-5.0) Albumin/Globulin Ratio 0.7 (1.0-1.7) Urine Collection Type U cath Urine Color Yellow Urine Clarity Cloudy Urine pH 6.5 Urine Specific [place] 1.020 Urine Protein >=300 mg/dL (NEG-TRACE) Urine Glucose (UA) 100 mg/dL (NEG) Urine Ketones (Stick) Negative mg/dL (NEG) Urine Blood Small (NEG) Urine Nitrite Negative (NEG) Urine Bilirubin Negative (NEG) Urine Urobilinogen Dipstick 0.2 mg/dL (0.2 mg/dL) Urine Leukocyte Esterase Negative (NEG) Urine RBC 3-5 /HPF (0-2) Urine WBC Rare /HPF (0-4) Urine Squamous Epithelial Cells Occ /LPF Urine Amorphous Sediment Present /HPF Urine Bacteria 0 /HPF (0-FEW) Absolute Reticulocyte Count 0.024 x10^6/uL (0.020-0.120) Percent Reticulocyte Count 0.9 % (0.5-2.3) Immature Reticulocyte Fraction 0.40 (0.20-0.60) Images Images Chest x-ray shows left sided atelectasis. Assessment/Plan Assessment/Plan 1. Shortness of breath. History of COPD. Patient continues on pulmonary medicati ons. 2. Acute kidney injury on chronic kidney disease. Creatinine now elevated at 3.9. Being evaluated by the renal service. 3. Elevated BNP at 7222. No significant elevation in troponin. We'll check an echocardiogram and monitor telemetry. 4. Hypertension. Improved today. We'll adjust medications as needed. Thank you for allowing us to participate in the care of your patient. SANDRA JOHNSTON MD Mar 12, 2019 12:21
[2019-03-12] MEDS: FUROSEMIDE 40 MG TABLET. PO SCH (14:12)
[2019-03-12 15:00] VITALS: BP 151/40
[2019-03-12] MEDS: ALBUTEROL SULFATE 2.5 MG/3 ML NEBU. NEB SCH ×2 (16:00→19:30)
[2019-03-12 19:59] VITALS: BP 121/92
[2019-03-12] MEDS: SIMVASTATIN 20 MG TABLET PO SCH (20:53)
[2019-03-12] MEDS: RIVAROXABAN 15 MG TABLET. PO SCH (20:53)
[2019-03-12] MEDS: ALPRAZolam 0.5 MG TABLET PO PRN (20:53)
[2019-03-12 23:18] VITALS: BP 147/55
--- NOTE | 2019-03-13 00:02 | RAD ---
Examination: RENAL COMPLETE BILATERAL History: Renal failure Comparison/Correlation: None Findings: Renal ultrasound shows performed. Right kidney measures 11.3 cm x 5.2 cm x 5 cm. Left kidney measures 11.8 cm x 5.2 cm x 5.4 cm. No hydronephrosis. Right renal superior pole parapelvic cyst measuring 2.1 cm diameter is present. Left inferior pole cyst measuring 2 cm diameter is present. Renal cortical echotexture is unremarkable. Right renal cortical thinning is present. Renal contours are unremarkable. A catheter is present in the urinary bladder. Impression: No hydronephrosis. Electronically signed by: Luke Laguna MD (03/12/2019 11:59 PM) [id number]
[2019-03-13 02:54] VITALS: BP 157/55
[2019-03-13 05:13] LABS: BASO % 0 % (0-3); EOS # 0.4 x10^3/uL (0.0-0.7); EOS % 8 % (0-3); HEMOGLOBIN 7.8 g/dL (13.0-17.5); LYMPH # 1.1 x10^3/uL (1.0-4.8); LYMPH % 22 % (24-48); MEAN CORPUSCULAR HEMOGLOBIN 31 pg (25-35); MEAN CORPUSCULAR HGB CONC 34 g/dL (31-37); MEAN CORPUSCULAR VOLUME 90 fL (79-100); MONO # 0.4 x10^3/uL (0.0-1.1); MONO % 9 % (0-9); NEUT # 3.1 x10^3/uL (1.8-7.7); NEUT % 61 % (31-73); PLATELET COUNT 141 x10^3/uL (140-400); RED BLOOD COUNT 2.55 x10^6/uL (4.30-5.70); RED CELL DISTRIBUTION WIDTH 15.6 % (11.5-14.5); WHITE BLOOD COUNT 5.1 x10^3/uL (4.0-11.0)
[2019-03-13 05:35] LABS: CALCIUM 7.9 mg/dL (8.5-10.1); CREATININE 4.1 mg/dL (0.7-1.3); GFR 14.2; PHOSPHORUS 3.8 mg/dL (2.6-4.7); POTASSIUM 3.7 mmol/L (3.5-5.1)
[2019-03-13 07:00] VITALS: BP 159/53
[2019-03-13] MEDS: BUDESONIDE 0.5 MG/2 ML NEBU. NEB SCH ×2 (08:00→20:42)
[2019-03-13] MEDS: ALBUTEROL SULFATE 2.5 MG/3 ML NEBU. NEB SCH ×4 (08:01→20:42)
[2019-03-13] MEDS: buPROPion XL 150 MG TAB.ER.24H. PO SCH (08:05)
[2019-03-13] MEDS: TAMSULOSIN 0.4 MG CAP.ER.24H. PO SCH ×2 (08:05→19:52)
[2019-03-13] MEDS: PANTOPRAZOLE 40 MG TABLET.DR. PO SCH ×2 (08:05→16:42)
[2019-03-13] MEDS: CARVEDILOL 6.25 MG TABLET. PO SCH ×2 (08:06→16:45)
[2019-03-13] MEDS: MULTIVITAMIN with MINERAL TABLET. PO SCH (08:06)
[2019-03-13] MEDS: amLODIPine BESYLATE 5 MG TABLET PO SCH ×2 (08:07→19:52)
[2019-03-13] MEDS: FUROSEMIDE 40 MG TABLET. PO SCH ×2 (08:07→13:27)
--- NOTE | 2019-03-13 09:13 | PDOC ---
Provider Note Provider Note [id number] dyspnea abnl cxr copd ct of chest MIGUEL MAXWELL MD Mar 13, 2019 09:13
--- NOTE | 2019-03-13 10:37 | RAD ---
CT chest without contrast. HISTORY: Infiltrates, smoker, renal failure CT scan of the chest was done without contrast. Thyroid is homogeneous. There is a calcified noted the reggie from granulomatous disease. There is a calcified granuloma in the right upper lobe. There is no other mediastinal adenopathy. There are small to moderate bilateral pleural effusions. There is atelectasis in both lower lobes although infiltrates are possible. There is a small density along the fissure in the right middle lobe and there is a sclerotic or blastic lesion at T7. Benign sclerosis is possible, a blastic metastatic lesion is possible. Correlation with any history of prostate cancer would be of benefit. No other bone lesion is noted. IMPRESSION: 1. Moderate bilateral effusions. 2. Bilateral lobe lower lobe atelectasis or infiltrates. 3. Small nodule along the fissure on the right, Fleischner Society guidelines recommend an optional one-year follow-up for I risk individuals. 4. Granulomatous ossifications. 5. Sclerotic or possibly blastic lesion T7 correlation with any history of prostate cancer would be of benefit. PQRS Compliance Statement: One or more of the following individualized dose reduction techniques were utilized for this examination: 1. Automated exposure control 2. Adjustment of the mA and/or kV according to patient size 3. Use of iterative reconstruction technique Electronically signed by: Cb Sutton MD (03/13/2019 10:34 AM) [facility]
[2019-03-13 11:00] VITALS: BP 142/43
--- NOTE | 2019-03-13 11:13 | PDOC ---
PROGRESS NOTES History of Present Illness History of Present Illness ASSESSMENT Acute on chronic renal failure secondary to volume overload, anemia, hypocalcemia, azotemia. chronic renal failure. stage 4-5 hypoxic episode resolved Left medial basilar retrocardiac atelectasis or possibly infiltrate. PROTEINURIA Moderate bilateral effusions. Bilateral lobe lower lobe atelectasis or infiltrates. Small nodule along the fissure on the right, Fleischner Society guidelines recommend an optional one-year follow-up for I risk individuals. Granulomatous ossifications. Sclerotic or possibly blastic lesion T7 correlation with any history of prostate cancer would be of benefit. ECHO 03/14The left ventricular systolic function is low normal. The ejection fraction is estimated at 50% mild to moderate mitral regurgitatio mild to moderate tricuspid regurgitation. PA pressure was estimated at 44 mmHg. C/W MOD PULM HTN admit Consult Nephrology, consult Cardiology, cardiac monitoring. echocardiogram, home meds, DVT prophylaxis, full code. pulm consult IS ONCOLOGY CONSULT 36 min pt exam, chart review , pt exam, > 50% of time spent with exam, chart review, pt care coordination Vitals Vitals Vital Signs Date Time Temp Pulse Resp B/P (MAP) Pulse Ox O2 Delivery O2 Flow Rate FiO2 03/13/19 08:13 Room Air 03/13/19 08:07 62 159/53 03/13/19 07:00 97.9 18 95 97.9 03/12/19 08:00 2.0 Physical Exam Physical Exam GENERAL: He is alert, cooperative. His IS present, HEENT: Normal cephalic atraumatic, external auditory canals are patent EYES: Extraocular muscles are intact, pupils are equally round and reactive to light and accommodation MUSKULOSKELETAL: Well developed, well nourished, good range of motion ENDOCRINE: No thyromegaly was palpated LYMPHATICS: No cervical chain or axillary nodes were noted HEMATOPOIETIC: No bruising NECK: Supple, no JVD, no thyromegaly was noted. LUNGS: Bibasilar crackles, but they are fine. He has a slight wheeze on the right. HEART: Distant S1, S2 with a soft S3. ABDOMEN: Soft. EXTREMITIES: Trace edema. NEUROLOGIC: Normal speech, normal tone. A & O x3, moves all extremities, no obvious focal deficits. PSYCHIATRIC: He is a little anxious. SKIN: No ulcerations or rashes, good skin turgor, no jaundice. VASCULAR: Good capillary refill, neurovascular bundle appears to be intact. General: mild distress Heart: Regular rate Lungs: Crackles Abdomen: Normal bowel sounds Extremities: No cyanosis Skin: No significant lesion Labs LABS EXAM: Two-dimensional and M-mode echocardiogram with Doppler and color Doppler. Other Information Quality : Good HR: 53bpm Rhythm : Bradycardia INDICATION Hypertension/HCVD 2D DIMENSIONS Left Atrium(2D) 4.5 (1.6-4.0cm) IVSd 0.9 (0.7-1.1cm) Aortic Root(2D) 2.2 (2.0-3.7cm) LVDd 6.0 (3.9-5.9cm) LVOT Diameter 2.3 (1.8-2.4cm) PWd 0.9 (0.7-1.1cm) LA Volume 115 (18-58mL) LVDs 4.3 (2.5-4.0cm) FS (%) 28.8 % SV 99.6 ml LVEF(%) 54.6 (>50%) Aortic Valve AoV Peak Tl. 197.4cm/s AoV VTI 48.5cm AO Peak GR. 15.6mmHg LVOT Peak Tl. 110.2cm/s AO Mean GR. 9mmHg SARA (VMAX) 2.40cm2 SARA (VTI) 2.60cm2 Mitral Valve MV E Velocity 0.9cm/s MV DECEL TIME 286ms TDI Lateral E' P. V 8.00cm/s Medial E' P. V 6.00cm/s E/Lateral E' 0.1 E/Medial E' 0.2 Tricuspid Valve TR P. Velocity 320cm/s RAP ESTIMATE 8mmHg TR Peak Gr. 41mmHg RVSP 49mmHg Pulmonary Vein S1 Velocity 96.6cm/s D2 Velocity 63.5cm/s LEFT VENTRICLE The Left Ventricle is borderline dilated. There is normal left ventricular wall thickness. The left ventricular systolic function is low normal. The ejection fraction is estimated at 50%. There is normal LV segmental wall motion. No left ventricle thrombus noted on this study. There is no ventricular septal defect visualized. There is no left ventricular aneurysm. There is no mass noted in the left ventricle. RIGHT VENTRICLE The right ventricle is normal size. There is normal right ventricular wall thickness. The right ventricular systolic function is normal. ATRIA The left atrium is mildly dilated. The right atrium size is normal. The interatrial septum is intact with no evidence for an atrial septal defect or patent foramen ovale as noted on 2-D or Doppler imaging. AORTIC VALVE The aortic valve is normal in structure and function. Doppler and Color Flow revealed no significant aortic regurgitation. There is no significant aortic va lvular stenosis. There is no aortic valvular vegetation. MITRAL VALVE The mitral valve is normal in structure and function. There is no evidence of mitral valve prolapse. There is no mitral valve stenosis. Doppler and Color Flow revealed mild to moderate mitral regurgitation. TRICUSPID VALVE The tricuspid valve is normal in structure and function. Doppler and Color Flow revealed mild to moderate tricuspid regurgitation. The PA pressure was estimated at 44 mmHg. There is no tricuspid valve prolapse or vegetation. There is no tricuspid valve stenosis. PULMONIC VALVE The pulmonary valve is normal in structure and function. Doppler and Color Flow revealed no pulmonic valvular regurgitation. There is no pulmonic valvular stenosis. GREAT VESSELS The aortic root is normal in size. Normal pulmonary venous flow (Doppler). PERICARDIAL EFFUSION There is no pleural effusion. There is no evidence of significant pericardial effusion. Critical Notification Critical Value: No <Conclusion> The Left Ventricle is borderline dilated. The left ventricular systolic function is low normal. The ejection fraction is estimated at 50%. There is no significant aortic valvular stenosis. Doppler and Color Flow revealed no significant aortic regurgitation. Doppler and Color Flow revealed mild to moderate mitral regurgitation. Doppler and Color Flow revealed mild to moderate tricuspid regurgitation. The PA pressure was estimated at 44 mmHg. Signed by : Sandra Bowers MD Electronically Approved : 03/13/2019 16:24:28 DICTATED and SIGNED BY: SANDRA BOWERS MD DATE: 03/13/19 1523 PATIENT: DEVIN MANUEL ACCOUNT: [id number] : 1940 LOCATION: [facility] AGE: 79 SEX: M EXAM STATUS: ADM IN ORD. PHYSICIAN: MIGUEL MAXWELL MD REASON: infilt smoker PROCEDURE: CT CHEST WO CONTRAST CT chest without contrast. HISTORY: Infiltrates, smoker, renal failure CT scan of the chest was done without contrast. Thyroid is homogeneous. There is a calcified noted the reggie from granulomatous disease. There is a calcified granuloma in the right upper lobe. There is no other mediastinal adenopathy. There are small to moderate bilateral pleural effusions. There is atelectasis in both lower lobes although infiltrates are possible. There is a small density along the fissure in the right middle lobe and there is a sclerotic or blastic lesion at T7. Benign sclerosis is possible, a blastic metastatic lesion is possible. Correlation with any history of prostate cancer would be of benefit. No other bone lesion is noted. IMPRESSION: 1. Moderate bilateral effusions. 2. Bilateral lobe lower lobe atelectasis or infiltrates. 3. Small nodule along the fissure on the right, Fleischner Society guidelines recommend an optional one-year follow-up for I risk individuals. 4. Granulomatous ossifications. 5. Sclerotic or possibly blastic lesion T7 correlation with any history of prostate cancer would be of benefit. PQRS Compliance Statement: One or more of the following individualized dose reduction techniques were utilized for this examination: 1. Automated exposure control 2. Adjustment of the mA and/or kV according to patient size 3. Use of iterative reconstruction technique Electronically signed by: Cb Sutton MD (03/13/2019 10:34 AM) [facility] DICTATED and SIGNED BY: CB SUTTON MD DATE: 03/13/19 1034 Laboratory Tests Test 03/13/19 04:05 White Blood Count 5.1 x10^3/uL (4.0-11.0) Red Blood Count 2.55 x10^6/uL (4.30-5.70) Hemoglobin 7.8 g/dL (13.0-17.5) Hematocrit 23.0 % (39.0-53.0) Mean Corpuscular Volume 90 fL (79-100) Mean Corpuscular Hemoglobin 31 pg (25-35) Mean Corpuscular Hemoglobin Concent 34 g/dL (31-37) Red Cell Distribution Width 15.6 % (11.5-14.5) Platelet Count 141 x10^3/uL (140-400) Neutrophils (%) (Auto) 61 % (31-73) Lymphocytes (%) (Auto) 22 % (24-48) Monocytes (%) (Auto) 9 % (0-9) Eosinophils (%) (Auto) 8 % (0-3) Basophils (%) (Auto) 0 % (0-3) Neutrophils # (Auto) 3.1 x10^3/uL (1.8-7.7) Lymphocytes # (Auto) 1.1 x10^3/uL (1.0-4.8) Monocytes # (Auto) 0.4 x10^3/uL (0.0-1.1) Eosinophils # (Auto) 0.4 x10^3/uL (0.0-0.7) Basophils # (Auto) 0.0 x10^3/uL (0.0-0.2) Sodium Level 140 mmol/L (136-145) Potassium Level 3.7 mmol/L (3.5-5.1) Chloride Level 107 mmol/L (98-107) Carbon Dioxide Level 23 mmol/L (21-32) Anion Gap 10 (6-14) Blood Urea Nitrogen 41 mg/dL (8-26) Creatinine 4.1 mg/dL (0.7-1.3) Estimated GFR (Cockcroft-Gault) 14.2 Glucose Level 83 mg/dL (70-99) Calcium Level 7.9 mg/dL (8.5-10.1) Phosphorus Level 3.8 mg/dL (2.6-4.7) Iron Level 26 ug/dL (65-175) Total Iron Binding Capacity 142 ug/dL (250-450) Iron Saturation 18 % (15-34) Assessment and Plan Assessmemt and Plan Problems Medical Problems: (1) Mpnur-[id number] kidney injury Status: Acute (2) Dyspnea Status: Acute Comment Review of Relevant I have reviewed the following items karey (where applicable) has been applied. Labs Laboratory Tests Test 03/11/19 13:45 03/11/19 14:40 03/12/19 06:45 03/13/19 04:05 White Blood Count 4.6 x10^3/uL (4.0-11.0) 6.2 x10^3/uL (4.0-11.0) 5.1 x10^3/uL (4.0-11.0) Red Blood Count 2.51 x10^6/uL (4.30-5.70) 2.57 x10^6/uL (4.30-5.70) 2.55 x10^6/uL (4.30-5.70) Hemoglobin 7.7 g/dL (13.0-17.5) 7.7 g/dL (13.0-17.5) 7.8 g/dL (13.0-17.5) Hematocrit 22.7 % (39.0-53.0) 22.8 % (39.0-53.0) 23.0 % (39.0-53.0) Mean Corpuscular Volume 91 fL (79-100) 90 fL (79-100) 90 fL (79-100) Mean Corpuscular Hemoglobin 31 pg (25-35) 31 pg (25-35) 31 pg (25-35) Mean Corpuscular Hemoglobin Concent 34 g/dL (31-37) 34 g/dL (31-37) 34 g/dL (31-37) Red Cell Distribution Width 16.0 % (11.5-14.5) 15.9 % (11.5-14.5) 15.6 % (11.5-14.5) Platelet Count 136 x10^3/uL (140-400) 144 x10^3/uL (140-400) 141 x10^3/uL (140-400) Neutrophils (%) (Auto) 64 % (31-73) 71 % (31-73) 61 % (31-73) Lymphocytes (%) (Auto) 20 % (24-48) 15 % (24-48) 22 % (24-48) Monocytes (%) (Auto) 8 % (0-9) 8 % (0-9) 9 % (0-9) Eosinophils (%) (Auto) 7 % (0-3) 6 % (0-3) 8 % (0-3) Basophils (%) (Auto) 1 % (0-3) 0 % (0-3) 0 % (0-3) Neutrophils # (Auto) 3.0 x10^3/uL (1.8-7.7) 4.4 x10^3/uL (1.8-7.7) 3.1 x10^3/uL (1.8-7.7) Lymphocytes # (Auto) 0.9 x10^3/uL (1.0-4.8) 0.9 x10^3/uL (1.0-4.8) 1.1 x10^3/uL (1.0-4.8) Monocytes # (Auto) 0.3 x10^3/uL (0.0-1.1) 0.5 x10^3/uL (0.0-1.1) 0.4 x10^3/uL (0.0-1.1) Eosinophils # (Auto) 0.3 x10^3/uL (0.0-0.7) 0.3 x10^3/uL (0.0-0.7) 0.4 x10^3/uL (0.0-0.7) Basophils # (Auto) 0.0 x10^3/uL (0.0-0.2) 0.0 x10^3/uL (0.0-0.2) 0.0 x10^3/uL (0.0-0.2) Sodium Level 137 mmol/L (136-145) 140 mmol/L (136-145) 140 mmol/L (136-145) Potassium Level 3.9 mmol/L (3.5-5.1) 3.9 mmol/L (3.5-5.1) 3.7 mmol/L (3.5-5.1) Chloride Level 105 mmol/L (98-107) 107 mmol/L (98-107) 107 mmol/L (98-107) Carbon Dioxide Level 24 mmol/L (21-32) 24 mmol/L (21-32) 23 mmol/L (21-32) Anion Gap 8 (6-14) 9 (6-14) 10 (6-14) Blood Urea Nitrogen 37 mg/dL (8-26) 38 mg/dL (8-26) 41 mg/dL (8-26) Creatinine 3.8 mg/dL (0.7-1.3) 3.9 mg/dL (0.7-1.3) 4.1 mg/dL (0.7-1.3) Estimated GFR (Cockcroft-Gault) 15.5 15.1 14.2 BUN/Creatinine Ratio 10 (6-20) Glucose Level 142 mg/dL (70-99) 88 mg/dL (70-99) 83 mg/dL (70-99) Lactic Acid Level 1.3 mmol/L (0.4-2.0) Calcium Level 7.5 mg/dL (8.5-10.1) 7.9 mg/dL (8.5-10.1) 7.9 mg/dL (8.5-10.1) Total Bilirubin 0.2 mg/dL (0.2-1.0) Aspartate Amino Transf (AST/SGOT) 22 U/L (15-37) Alanine Aminotransferase (ALT/SGPT) 18 U/L (16-63) Alkaline Phosphatase 94 U/L (46-116) Troponin I Quantitative 0.029 ng/mL (0.000-0.055) FA-[id number]-K-Type Natriuretic Peptide 7222 pg/mL (0-449) Total Protein 5.7 g/dL (6.4-8.2) Albumin 2.3 g/dL (3.4-5.0) Albumin/Globulin Ratio 0.7 (1.0-1.7) Urine Collection Type U cath Urine Color Yellow Urine Clarity Cloudy Urine pH 6.5 Urine Specific [place] 1.020 Urine Protein >=300 mg/dL (NEG-TRACE) Urine Glucose (UA) 100 mg/dL (NEG) Urine Ketones (Stick) Negative mg/dL (NEG) Urine Blood Small (NEG) Urine Nitrite Negative (NEG) Urine Bilirubin Negative (NEG) Urine Urobilinogen Dipstick 0.2 mg/dL (0.2 mg/dL) Urine Leukocyte Esterase Negative (NEG) Urine RBC 3-5 /HPF (0-2) Urine WBC Rare /HPF (0-4) Urine Squamous Epithelial Cells Occ /LPF Urine Amorphous Sediment Present /HPF Urine Bacteria 0 /HPF (0-FEW) Absolute Reticulocyte Count 0.024 x10^6/uL (0.020-0.120) Percent Reticulocyte Count 0.9 % (0.5-2.3) Immature Reticulocyte Fraction 0.40 (0.20-0.60) Phosphorus Level 3.8 mg/dL (2.6-4.7) Iron Level 26 ug/dL (65-175) Total Iron Binding Capacity 142 ug/dL (250-450) Iron Saturation 18 % (15-34) Laboratory Tests Test 03/13/19 04:05 White Blood Count 5.1 x10^3/uL (4.0-11.0) Red Blood Count 2.55 x10^6/uL (4.30-5.70) Hemoglobin 7.8 g/dL (13.0-17.5) Hematocrit 23.0 % (39.0-53.0) Mean Corpuscular Volume 90 fL (79-100) Mean Corpuscular Hemoglobin 31 pg (25-35) Mean Corpuscular Hemoglobin Concent 34 g/dL (31-37) Red Cell Distribution Width 15.6 % (11.5-14.5) Platelet Count 141 x10^3/uL (140-400) Neutrophils (%) (Auto) 61 % (31-73) Lymphocytes (%) (Auto) 22 % (24-48) Monocytes (%) (Auto) 9 % (0-9) Eosinophils (%) (Auto) 8 % (0-3) Basophils (%) (Auto) 0 % (0-3) Neutrophils # (Auto) 3.1 x10^3/uL (1.8-7.7) Lymphocytes # (Auto) 1.1 x10^3/uL (1.0-4.8) Monocytes # (Auto) 0.4 x10^3/uL (0.0-1.1) Eosinophils # (Auto) 0.4 x10^3/uL (0.0-0.7) Basophils # (Auto) 0.0 x10^3/uL (0.0-0.2) Sodium Level 140 mmol/L (136-145) Potassium Level 3.7 mmol/L (3.5-5.1) Chloride Level 107 mmol/L (98-107) Carbon Dioxide Level 23 mmol/L (21-32) Anion Gap 10 (6-14) Blood Urea Nitrogen 41 mg/dL (8-26) Creatinine 4.1 mg/dL (0.7-1.3) Estimated GFR (Cockcroft-Gault) 14.2 Glucose Level 83 mg/dL (70-99) Calcium Level 7.9 mg/dL (8.5-10.1) Phosphorus Level 3.8 mg/dL (2.6-4.7) Iron Level 26 ug/dL (65-175) Total Iron Binding Capacity 142 ug/dL (250-450) Iron Saturation 18 % (15-34) Microbiology 03/11/19 Blood Culture - Preliminary, Resulted NO GROWTH AFTER 1 DAY Medications Current Medications Albuterol/ Ipratropium (Duoneb) 3 ml 1X ONCE NEB Last administered on 03/11/19 13:28; Start 03/11/19 at 13:15; Stop 03/11/19 at 13:27; Status DC Sodium Chloride 1,000 ml @ 125 mls/hr Q8H IV Last administered on 03/11/19 19:09; Start 03/11/19 at 16:29; Stop 03/12/19 at 11:59; Status DC Albuterol/ Ipratropium (Duoneb) 3 ml RTQID NEB Last administered on 03/12/19at 12:07; Start 03/11/19 at 20:00; Stop 03/12/19 at 14:32; Status DC Amlodipine Besylate (Norvasc) 5 mg BID PO Last administered on 03/13/19 08:07; Start 03/11/19 at 22:30 Bupropion HCl (Wellbutrin Xl) 150 mg DAILY PO Last administered on 03/13/19 08:05; Start 03/12/19 at 09:00 Carvedilol (Coreg) 6.25 mg BIDWMEALS PO Last administered on 03/13/19 08:06; Start 03/12/19 at 08:00 Pantoprazole Sodium (Protonix) 40 mg BIDAC PO Last administered on 03/13/19 08:05; Start 03/12/19 at 07:30 Rivaroxaban (Xarelto) 15 mg QHS PO Last administered on 03/12/19 20:53; St art 03/11/19 at 22:30 Simvastatin (Zocor) 20 mg HS PO Last administered on 03/12/19 20:53; Start 03/11/19 at 22:30 Tamsulosin HCl (Flomax) 0.4 mg BID PO Last administered on 03/13/19 08:05; Start 03/11/19 at 22:30 Non-Formulary Medication (Albuterol Sulfate (Ventolin Hfa Inhaler)) 2 puff QID INH ; Start 03/12/19 at 09:00; Status UNV Non-Formulary Medication (Budesonide/ Formoterol Fumarate (Symbicort 160-4.5 Mcg Inhaler)) 2 puff BID IH ; Start 03/12/19 at 09:00; Status UNV Diphenhydramine HCl (Benadryl) 50 mg PRN Q6HRS PRN PO ITCHING; Start 03/11/19 at 22:30 Multivitamins (Thera M Plus) 1 tab DAILY PO Last administered on 03/13/19at 08:06; Start 03/12/19 at 09:00 Budesonide (Pulmicort) 0.5 mg RTBID NEB Last administered on 03/13/19at 08:00; Start 03/12/19 at 08:00 Furosemide (Lasix) 40 mg 1X ONCE IVP Last administered on 03/12/19at 12:15; Start 03/12/19 at 12:00; Stop 03/12/19 at 12:03; Status DC Potassium Chloride (Klor-Con) 20 meq 1X ONCE PO Last administered on 03/12/19at 12:16; Start 03/12/19 at 12:00; Stop 03/12/19 at 12:03; Status DC Furosemide (Lasix) 40 mg BID92 PO Last administered on 03/13/19at 08:07; Start 03/12/19 at 14:00 Hydralazine HCl (Apresoline Inj) 10 mg PRN Q4HRS PRN IVP ELEVATED BP, SEE COMMENTS; Start 03/12/19 at 12:00 Albuterol Sulfate (Ventolin Neb Soln) 2.5 mg RTQID NEB Last administered on 03/13/19at 08:01; Start 03/12/19 at 16:00 Alprazolam (Xanax) 0.5 mg PRN Q8HRS PRN PO ANXIETY / AGITATION Last administered on 03/12/19at 20:53; Start 03/12/19 at 19:30 Active Scripts Active Reported Xarelto (Rivaroxaban) 15 Mg Tablet 15 Mg PO QHS Flomax (Tamsulosin Hcl) 0.4 Mg Cap.er.24h 0.4 Mg PO BID Simvastatin 20 Mg Tablet 20 Mg PO HS Pantoprazole Sodium (Pantoprazole Sodium) 40 Mg Tablet.dr 40 Mg PO BID Multi Vitamin Daily (Multivitamin) 1 Each Tablet 1 Tab PO DAILY 30 Days Diphenhydramine Hcl 50 Mg Capsule 50 Mg PO Q6HRS PRN Carvedilol (Carvedilol) 6.25 Mg Tablet 6.25 Mg PO BIDWMEALS Bupropion Xl (Bupropion Hcl) 150 Mg Tab.er.24h 150 Mg PO QAM Symbicort 160-4.5 Mcg Inhaler (Budesonide/Formoterol Fumarate) 10.2 Gm Hfa.aer.ad 2 Puff IH BID Amlodipine Besylate 5 Mg Tablet 5 Mg PO BID Ventolin Hfa Inhaler (Albuterol Sulfate) 18 Gm Hfa.aer.ad 2 Puff INH QID Vitals/I & O Vital Sign - Last 24 Hours 03/12/19 03/12/19 03/12/19 03/12/19 15:00 15:26 17:33 19:27 Temp 97.8 97.8 Pulse 53 53 Resp 16 B/P (MAP) 151/40 (77) 151/40 Pulse Ox 94 O2 Delivery Room Air Room Air Room Air 03/12/19 03/12/19 03/12/19 03/12/19 19:59 20:00 20:53 23:18 Temp 97.9 98.2 97.9 98.2 Pulse 51 51 55 Resp 16 19 B/P (MAP) 121/92 (102) 121/92 147/55 (85) Pulse Ox 100 93 O2 Delivery Room Air Room Air Room Air 03/13/19 03/13/19 03/13/19 03/13/19 02:54 07:00 08:05 08:06 Temp 98.2 97.9 98.2 97.9 Pulse 58 62 62 Resp 19 18 B/P (MAP) 157/55 (89) 159/53 (88) 159/53 Pulse Ox 93 95 O2 Delivery Room Air Room Air Room Air 03/13/19 03/13/19 03/13/19 08:06 08:07 08:13 Pulse 62 B/P (MAP) 159/53 O2 Delivery Room Air Room Air Intake and Output 03/12/19 03/12/19 03/13/19 15:00 23:00 07:00 Intake Total 200 ml Output Total 750 ml 350 ml 1000 ml Balance -750 ml -150 ml -1000 ml TANVIR CARRASCO MD Mar 13, 2019 11:13
--- NOTE | 2019-03-13 13:40 | PDOC ---
Renal-Progress Notes Subjective Notes Notes LESS SOB History of Present Illness Hx of present illness STABLE Vitals Vitals Vital Signs Date Time Temp Pulse Resp B/P (MAP) Pulse Ox O2 Delivery O2 Flow Rate FiO2 03/13/19 12:36 95 Room Air 03/13/19 11:00 97.9 60 18 142/43 (76) 97.9 03/12/19 08:00 2.0 Weight Weight [ ] I.O. Intake and Output Intake and Output 03/13/19 07:00 Intake Total 200 ml Output Total 2100 ml Balance -1900 ml Intake Oral 200 ml Output Urine Total 2100 ml # Bowel Movements 2 Labs Labs Laboratory Tests Test 03/13/19 04:05 White Blood Count 5.1 x10^3/uL (4.0-11.0) Red Blood Count 2.55 x10^6/uL (4.30-5.70) Hemoglobin 7.8 g/dL (13.0-17.5) Hematocrit 23.0 % (39.0-53.0) Mean Corpuscular Volume 90 fL (79-100) Mean Corpuscular Hemoglobin 31 pg (25-35) Mean Corpuscular Hemoglobin Concent 34 g/dL (31-37) Red Cell Distribution Width 15.6 % (11.5-14.5) Platelet Count 141 x10^3/uL (140-400) Neutrophils (%) (Auto) 61 % (31-73) Lymphocytes (%) (Auto) 22 % (24-48) Monocytes (%) (Auto) 9 % (0-9) Eosinophils (%) (Auto) 8 % (0-3) Basophils (%) (Auto) 0 % (0-3) Neutrophils # (Auto) 3.1 x10^3/uL (1.8-7.7) Lymphocytes # (Auto) 1.1 x10^3/uL (1.0-4.8) Monocytes # (Auto) 0.4 x10^3/uL (0.0-1.1) Eosinophils # (Auto) 0.4 x10^3/uL (0.0-0.7) Basophils # (Auto) 0.0 x10^3/uL (0.0-0.2) Sodium Level 140 mmol/L (136-145) Potassium Level 3.7 mmol/L (3.5-5.1) Chloride Level 107 mmol/L (98-107) Carbon Dioxide Level 23 mmol/L (21-32) Anion Gap 10 (6-14) Blood Urea Nitrogen 41 mg/dL (8-26) Creatinine 4.1 mg/dL (0.7-1.3) Estimated GFR (Cockcroft-Gault) 14.2 Glucose Level 83 mg/dL (70-99) Calcium Level 7.9 mg/dL (8.5-10.1) Phosphorus Level 3.8 mg/dL (2.6-4.7) Iron Level 26 ug/dL (65-175) Total Iron Binding Capacity 142 ug/dL (250-450) Iron Saturation 18 % (15-34) Micro Micro Microbiology 03/11/19 Blood Culture - Preliminary, Resulted NO GROWTH AFTER 1 DAY Review of Systems Constitutional: yes: alert, oriented Ears/Nose/Throat: Yes: no symptom reported Eyes: Yes: no symptom reported Pulmonary: Yes dyspnea Cardiovascular: Yes edema Gastrointestional: Yes: no symptom reported Genitourinary: Yes: no symptom reported Musculoskeletal: Yes: no symptom reported Skin: Yes no symptom reported Psychiatric/Neurological: Yes: no symptom reported Endocrine: Yes: no symptom reported Physical Exam General Appearance: no apparent distress Skin: warm Respiratory: decreased breath sounds Heart: S1S2 Abdomen: soft, bowel sounds present Genitourinary: bladder flat Extremities: edema Neurology: oriented Assessment Assessment IMP CKD STAGE 4 ANEMIA HTN EDEMA DYSPNEA CHF-PROB SYSTOLIC AND DIASTOLIC PLAN STOP IVF'S ATTEMPT TO DIURESE START IRON START XIOMARA MAY NEED DIALYSIS 24 HOUR URINE STUDY SUGGEST CARDIOLOGY EVAL AND TX WILL FOLLOW FRANKIE IRELAND MD Mar 13, 2019 13:40
[2019-03-13 15:00] VITALS: BP 152/54
[2019-03-13] MEDS: IRON POLYSACCHARIDE COMPLEX 150 MG CAPSULE PO SCH (15:31)
--- NOTE | 2019-03-13 15:36 | PDOC ---
PROGRESS NOTES Subjective Subjective Patient seen and examined Objective Objective Vital Signs Date Time Temp Pulse Resp B/P (MAP) Pulse Ox O2 Delivery O2 Flow Rate FiO2 03/13/19 12:36 95 Room Air 03/13/19 11:00 97.9 60 18 142/43 (76) 97.9 03/12/19 08:00 2.0 Intake and Output 03/13/19 07:00 Intake Total 200 ml Output Total 2100 ml Balance -1900 ml Intake Oral 200 ml Output Urine Total 2100 ml # Bowel Movements 2 Physical Exam Abdomen: Normal bowel sounds Heart: Regular rate General: mild distress Lungs: Other (mildly decreased breath sounds) Assessment Assessment Problems Medical Problems: (1) Hbwyz-tv-mrhgapp kidney injury Status: Acute (2) Dyspnea Status: Acute 1. Shortness of breath. History of COPD. Patient continues on pulmonary medications. He is feeling better 2. Acute kidney injury on chronic kidney disease. Creatinine now elevated at 4.1. Being evaluated by the renal service. 3. Elevated BNP at 7222. No significant elevation in troponin. No significant arrhythmias on telemetry. Echocardiogram pending. 4. Hypertension. Improved today. We'll adjust medications as needed. Thank you for allowing us to participate in the care of your patient. Comment Review of Relevant I have reviewed the following items karey (where applicable) has been applied. Labs Laboratory Tests Test 03/12/19 06:45 03/13/19 04:05 White Blood Count 6.2 x10^3/uL (4.0-11.0) 5.1 x10^3/uL (4.0-11.0) Red Blood Count 2.57 x10^6/uL (4.30-5.70) 2.55 x10^6/uL (4.30-5.70) Hemoglobin 7.7 g/dL (13.0-17.5) 7.8 g/dL (13.0-17.5) Hematocrit 22.8 % (39.0-53.0) 23.0 % (39.0-53.0) Mean Corpuscular Volume 90 fL (79-100) 90 fL (79-100) Mean Corpuscular Hemoglobin 31 pg (25-35) 31 pg (25-35) Mean Corpuscular Hemoglobin Concent 34 g/dL (31-37) 34 g/dL (31-37) Red Cell Distribution Width 15.9 % (11.5-14.5) 15.6 % (11.5-14.5) Platelet Count 144 x10^3/uL (140-400) 141 x10^3/uL (140-400) Neutrophils (%) (Auto) 71 % (31-73) 61 % (31-73) Lymphocytes (%) (Auto) 15 % (24-48) 22 % (24-48) Monocytes (%) (Auto) 8 % (0-9) 9 % (0-9) Eosinophils (%) (Auto) 6 % (0-3) 8 % (0-3) Basophils (%) (Auto) 0 % (0-3) 0 % (0-3) Neutrophils # (Auto) 4.4 x10^3/uL (1.8-7.7) 3.1 x10^3/uL (1.8-7.7) Lymphocytes # (Auto) 0.9 x10^3/uL (1.0-4.8) 1.1 x10^3/uL (1.0-4.8) Monocytes # (Auto) 0.5 x10^3/uL (0.0-1.1) 0.4 x10^3/uL (0.0-1.1) Eosinophils # (Auto) 0.3 x10^3/uL (0.0-0.7) 0.4 x10^3/uL (0.0-0.7) Basophils # (Auto) 0.0 x10^3/uL (0.0-0.2) 0.0 x10^3/uL (0.0-0.2) Absolute Reticulocyte Count 0.024 x10^6/uL (0.020-0.120) Percent Reticulocyte Count 0.9 % (0.5-2.3) Immature Reticulocyte Fraction 0.40 (0.20-0.60) Sodium Level 140 mmol/L (136-145) 140 mmol/L (136-145) Potassium Level 3.9 mmol/L (3.5-5.1) 3.7 mmol/L (3.5-5.1) Chloride Level 107 mmol/L (98-107) 107 mmol/L (98-107) Carbon Dioxide Level 24 mmol/L (21-32) 23 mmol/L (21-32) Anion Gap 9 (6-14) 10 (6-14) Blood Urea Nitrogen 38 mg/dL (8-26) 41 mg/dL (8-26) Creatinine 3.9 mg/dL (0.7-1.3) 4.1 mg/dL (0.7-1.3) Estimated GFR (Cockcroft-Gault) 15.1 14.2 Glucose Level 88 mg/dL (70-99) 83 mg/dL (70-99) Calcium Level 7.9 mg/dL (8.5-10.1) 7.9 mg/dL (8.5-10.1) Phosphorus Level 3.8 mg/dL (2.6-4.7) Iron Level 26 ug/dL (65-175) Total Iron Binding Capacity 142 ug/dL (250-450) Iron Saturation 18 % (15-34) Laboratory Tests Test 03/13/19 04:05 White Blood Count 5.1 x10^3/uL (4.0-11.0) Red Blood Count 2.55 x10^6/uL (4.30-5.70) Hemoglobin 7.8 g/dL (13.0-17.5) Hematocrit 23.0 % (39.0-53.0) Mean Corpuscular Volume 90 fL (79-100) Mean Corpuscular Hemoglobin 31 pg (25-35) Mean Corpuscular Hemoglobin Concent 34 g/dL (31-37) Red Cell Distribution Width 15.6 % (11.5-14.5) Platelet Count 141 x10^3/uL (140-400) Neutrophils (%) (Auto) 61 % (31-73) Lymphocytes (%) (Auto) 22 % (24-48) Monocytes (%) (Auto) 9 % (0-9) Eosinophils (%) (Auto) 8 % (0-3) Basophils (%) (Auto) 0 % (0-3) Neutrophils # (Auto) 3.1 x10^3/uL (1.8-7.7) Lymphocytes # (Auto) 1.1 x10^3/uL (1.0-4.8) Monocytes # (Auto) 0.4 x10^3/uL (0.0-1.1) Eosinophils # (Auto) 0.4 x10^3/uL (0.0-0.7) Basophils # (Auto) 0.0 x10^3/uL (0.0-0.2) Sodium Level 140 mmol/L (136-145) Potassium Level 3.7 mmol/L (3.5-5.1) Chloride Level 107 mmol/L (98-107) Carbon Dioxide Level 23 mmol/L (21-32) Anion Gap 10 (6-14) Blood Urea Nitrogen 41 mg/dL (8-26) Creatinine 4.1 mg/dL (0.7-1.3) Estimated GFR (Cockcroft-Gault) 14.2 Glucose Level 83 mg/dL (70-99) Calcium Level 7.9 mg/dL (8.5-10.1) Phosphorus Level 3.8 mg/dL (2.6-4.7) Iron Level 26 ug/dL (65-175) Total Iron Binding Capacity 142 ug/dL (250-450) Iron Saturation 18 % (15-34) Microbiology 03/11/19 Blood Culture - Preliminary, Resulted NO GROWTH AFTER 2 DAYS Medications Current Medications Albuterol/ Ipratropium (Duoneb) 3 ml 1X ONCE NEB Last administered on 03/11/19at 13:28; Start 03/11/19 at 13:15; Stop 03/11/19 at 13:27; Status DC Sodium Chloride 1,000 ml @ 125 mls/hr Q8H IV Last administered on 03/11/19at 19:09; Start 03/11/19 at 16:29; Stop 03/12/19 at 11:59; Status DC Albuterol/ Ipratropium (Duoneb) 3 ml RTQID NEB Last administered on 03/12/19at 12:07; Start 03/11/19 at 20:00; Stop 03/12/19 at 14:32; Status DC Amlodipine Besylate (Norvasc) 5 mg BID PO Last administered on 03/13/19 08:07; Start 03/11/19 at 22:30 Bupropion HCl (Wellbutrin Xl) 150 mg DAILY PO Last administered on 03/13/19at 08:05; Start 03/12/19 at 09:00 Carvedilol (Coreg) 6.25 mg BIDWMEALS PO Last administered on 03/13/19 08:06; Start 03/12/19 at 08:00 Pantoprazole Sodium (Protonix) 40 mg BIDAC PO Last administered on 03/13/19 08:05; Start 03/12/19 at 07:30 Rivaroxaban (Xarelto) 15 mg QHS PO Last administered on 03/12/19 20:53; Start 03/11/19 at 22:30 Simvastatin (Zocor) 20 mg HS PO Last administered on 03/12/19 20:53; Start 03/11/19 at 22:30 Tamsulosin HCl (Flomax) 0.4 mg BID PO Last administered on 03/13/19 08:05; Start 03/11/19 at 22:30 Non-Formulary Medication (Albuterol Sulfate (Ventolin Hfa Inhaler)) 2 puff QID INH ; Start 03/12/19 at 09:00; Status UNV Non-Formulary Medication (Budesonide/ Formoterol Fumarate (Symbicort 160-4.5 Mcg Inhaler)) 2 puff BID IH ; Start 03/12/19 at 09:00; Status UNV Diphenhydramine HCl (Benadryl) 50 mg PRN Q6HRS PRN PO ITCHING; Start 03/11/19 at 22:30 Multivitamins (Thera M Plus) 1 tab DAILY PO Last administered on 03/13/19 08:06; Start 03/12/19 at 09:00 Budesonide (Pulmicort) 0.5 mg RTBID NEB Last administered on 03/13/19 08:00; Start 03/12/19 at 08:00 Furosemide (Lasix) 40 mg 1X ONCE IVP Last administered on 03/12/19 12:15; Start 03/12/19 at 12:00; Stop 03/12/19 at 12:03; Status DC Potassium Chloride (Klor-Con) 20 meq 1X ONCE PO Last administered on 03/12/19 12:16; Start 03/12/19 at 12:00; Stop 03/12/19 at 12:03; Status DC Furosemide (Lasix) 40 mg BID92 PO Last administered on 03/13/19 13:27; Start 03/12/19 at 14:00 Hydralazine HCl (Apresoline Inj) 10 mg PRN Q4HRS PRN IVP ELEVATED BP, SEE COMMENTS; Start 03/12/19 at 12:00 Albuterol Sulfate (Ventolin Neb Soln) 2.5 mg RTQID NEB Last administered on 03/13/19at 12:00; Start 03/12/19 at 16:00 Alprazolam (Xanax) 0.5 mg PRN Q8HRS PRN PO ANXIETY / AGITATION Last administered on 03/12/19at 20:53; Start 03/12/19 at 19:30 Darbepoetin Guillermo (ARANESP for DIALYSIS PTS) 60 mcg Torres SQ ; Start 03/13/19 at 21:00 Polysaccharide Iron Complex (Niferex 150) 150 mg DAILY PO ; Start 03/13/19 at 14:00 Active Scripts Active Reported Xarelto (Rivaroxaban) 15 Mg Tablet 15 Mg PO QHS Flomax (Tamsulosin Hcl) 0.4 Mg Cap.er.24h 0.4 Mg PO BID Simvastatin 20 Mg Tablet 20 Mg PO HS Pantoprazole Sodium (Pantoprazole Sodium) 40 Mg Tablet.dr 40 Mg PO BID Multi Vitamin Daily (Multivitamin) 1 Each Tablet 1 Tab PO DAILY 30 Days Diphenhydramine Hcl 50 Mg Capsule 50 Mg PO Q6HRS PRN Carvedilol (Carvedilol) 6.25 Mg Tablet 6.25 Mg PO BIDWMEALS Bupropion Xl (Bupropion Hcl) 150 Mg Tab.er.24h 150 Mg PO QAM Symbicort 160-4.5 Mcg Inhaler (Budesonide/Formoterol Fumarate) 10.2 Gm Hfa.aer.ad 2 Puff IH BID Amlodipine Besylate 5 Mg Tablet 5 Mg PO BID Ventolin Hfa Inhaler (Albuterol Sulfate) 18 Gm Hfa.aer.ad 2 Puff INH QID Vitals/I & O Vital Sign - Last 24 Hours 03/12/19 03/12/19 03/12/19 03/12/19 17:33 19:27 19:59 20:00 Temp 97.9 97.9 Pulse 53 51 Resp 16 B/P (MAP) 151/40 121/92 (102) Pulse Ox 100 O2 Delivery Room Air Room Air Room Air 03/12/19 03/12/19 03/13/19 03/13/19 20:53 23:18 02:54 07:00 Temp 98.2 98.2 97.9 98.2 98.2 97.9 Pulse 51 55 58 62 Resp 19 19 18 B/P (MAP) 121/92 147/55 (85) 157/55 (89) 159/53 (88) Pulse Ox 93 93 95 O2 Delivery Room Air Room Air Room Air 03/13/19 03/13/19 03/13/19 03/13/19 08:05 08:06 08:06 08:07 Pulse 62 62 B/P (MAP) 159/53 159/53 O2 Delivery Room Air Room Air 03/13/19 03/13/19 03/13/19 08:13 11:00 12:36 Temp 97.9 97.9 Pulse 60 Resp 18 B/P (MAP) 142/43 (76) Pulse Ox 96 95 O2 Delivery Room Air Room Air Room Air Intake and Output 03/12/19 03/12/19 03/13/19 15:00 23:00 07:00 Intake Total 200 ml Output Total 750 ml 350 ml 1000 ml Balance -750 ml -150 ml -1000 ml SANDRA JOHNSTON MD Mar 13, 2019 15:36
--- NOTE | 2019-03-13 16:24 | CARD ---
MR#: [id number] Date of Study: 03/13/2019 Ordering Physician: TANVIR CARRASCO, Referring Physician: TANVIR CARRASCO, Tech: Martha Norton RDCS APPROVED REPORT EXAM: Two-dimensional and M-mode echocardiogram with Doppler and color Doppler. Other Information Quality : GoodHR: 53bpm Rhythm : Bradycardia INDICATION Hypertension/HCVD 2D DIMENSIONS Left Atrium(2D)4.5 (1.6-4.0cm)IVSd0.9 (0.7-1.1cm) Aortic Root(2D)2.2 (2.0-3.7cm)LVDd6.0 (3.9-5.9cm) LVOT Diameter2.3 (1.8-2.4cm)PWd0.9 (0.7-1.1cm) LA Lopnhb920 (18-58mL)LVDs4.3 (2.5-4.0cm) FS (%) 28.8 %SV99.6 ml LVEF(%)54.6 (>50%) Aortic Valve AoV Peak Tl.197.4cm/sAoV VTI48.5cm AO Peak GR.15.6mmHgLVOT Peak Tl.110.2cm/s AO Mean GR.9mmHgAVA (VMAX)2.40cm2 SARA (VTI)2.60cm2 Mitral Valve MV E Velocity0.9cm/sMV DECEL [id number] TDI Lateral E' P. V8.00cm/sMedial E' P. V6.00cm/s E/Lateral E'0.1E/Medial E'0.2 Tricuspid Valve TR P. Kadgaxin269xl/sRAP [id number] TR Peak Gr.24jtTwDTZT78ejVw Pulmonary Vein S1 Docmhxvg99.6cm/sD2 Hsgmgufd81.5cm/s LEFT VENTRICLE The Left Ventricle is borderline dilated. There is normal left ventricular wall thickness. The left v entricular systolic function is low normal. The ejection fraction is estimated at 50%. There is elza l LV segmental wall motion. No left ventricle thrombus noted on this study. There is no ventricular s eptal defect visualized. There is no left ventricular aneurysm. There is no mass noted in the left ve ntricle. RIGHT VENTRICLE The right ventricle is normal size. There is normal right ventricular wall thickness. The right ventr icular systolic function is normal. ATRIA The left atrium is mildly dilated. The right atrium size is normal. The interatrial septum is intact with no evidence for an atrial septal defect or patent foramen ovale as noted on 2-D or Doppler imagi ng. AORTIC VALVE The aortic valve is normal in structure and function. Doppler and Color Flow revealed no significant aortic regurgitation. There is no significant aortic valvular stenosis. There is no aortic valvular v egetation. MITRAL VALVE The mitral valve is normal in structure and function. There is no evidence of mitral valve prolapse. There is no mitral valve stenosis. Doppler and Color Flow revealed mild to moderate mitral regurgitat ion. TRICUSPID VALVE The tricuspid valve is normal in structure and function. Doppler and Color Flow revealed mild to mode rate tricuspid regurgitation. The PA pressure was estimated at 44 mmHg. There is no tricuspid valve p rolapse or vegetation. There is no tricuspid valve stenosis. PULMONIC VALVE The pulmonary valve is normal in structure and function. Doppler and Color Flow revealed no pulmonic valvular regurgitation. There is no pulmonic valvular stenosis. GREAT VESSELS The aortic root is normal in size. Normal pulmonary venous flow (Doppler). PERICARDIAL EFFUSION There is no pleural effusion. There is no evidence of significant pericardial effusion. Critical Notification Critical Value: No <Conclusion> The Left Ventricle is borderline dilated. The left ventricular systolic function is low normal. The ejection fraction is estimated at 50%. There is no significant aortic valvular stenosis. Doppler and Color Flow revealed no significant aortic regurgitation. Doppler and Color Flow revealed mild to moderate mitral regurgitation. Doppler and Color Flow revealed mild to moderate tricuspid regurgitation. The PA pressure was estimated at 44 mmHg. Signed by : Rishabh Bowers MD Electronically Approved : 03/13/2019 16:24:28
[2019-03-13 19:22] VITALS: BP 162/52
[2019-03-13] MEDS: SIMVASTATIN 20 MG TABLET PO SCH (19:50)
[2019-03-13] MEDS: ALPRAZolam 0.5 MG TABLET PO PRN (19:50)
[2019-03-13] MEDS: RIVAROXABAN 15 MG TABLET. PO SCH (19:52)
[2019-03-13] MEDS ORDERED: DARBEPOETIN ALFA 60 MCG/0.3 ML DISP.SYRIN. SQ SCH (21:00)
[2019-03-13 23:54] VITALS: BP 117/54
[2019-03-14 03:15] VITALS: BP 176/70
[2019-03-14 06:44] VITALS: BP 171/58
[2019-03-14 07:19] LABS: HEMOGLOBIN 8.5 g/dL (13.0-17.5); RED BLOOD COUNT 2.79 x10^6/uL (4.30-5.70); RED CELL DISTRIBUTION WIDTH 15.7 % (11.5-14.5); WHITE BLOOD COUNT 5.2 x10^3/uL (4.0-11.0)
[2019-03-14] MEDS: MULTIVITAMIN with MINERAL TABLET. PO SCH (08:16)
[2019-03-14] MEDS: IRON POLYSACCHARIDE COMPLEX 150 MG CAPSULE PO SCH (08:16)
[2019-03-14] MEDS: PANTOPRAZOLE 40 MG TABLET.DR. PO SCH ×2 (08:17→16:48)
[2019-03-14] MEDS: FUROSEMIDE 40 MG TABLET. PO SCH ×2 (08:17→13:41)
[2019-03-14] MEDS: buPROPion XL 150 MG TAB.ER.24H. PO SCH (08:17)
[2019-03-14] MEDS: TAMSULOSIN 0.4 MG CAP.ER.24H. PO SCH ×2 (08:17→21:13)
[2019-03-14] MEDS: CARVEDILOL 6.25 MG TABLET. PO SCH ×2 (08:19→16:49)
[2019-03-14] MEDS: amLODIPine BESYLATE 5 MG TABLET PO SCH ×2 (08:19→21:13)
--- NOTE | 2019-03-14 08:21 | PDOC ---
PROGRESS NOTES History of Present Illness History of Present Illness ASSESSMENT Acute on chronic renal failure secondary to volume overload, anemia, hypocalcemia, azotemia. chronic renal failure. stage 4-5 hypoxic episode resolved Left medial basilar retrocardiac atelectasis or possibly infiltrate. PROTEINURIA Moderate bilateral effusions. Bilateral lobe lower lobe atelectasis or infiltrates. Small nodule along the fissure on the right, Fleischner Society guidelines recommend an optional one-year follow-up for I risk individuals. Granulomatous ossifications. Sclerotic or possibly blastic lesion T7 correlation with any history of prostate cancer would be of benefit. ECHO 03/14The left ventricular systolic function is low normal. The ejection fraction is estimated at 50% mild to moderate mitral regurgitatio mild to moderate tricuspid regurgitation. PA pressure was estimated at 44 mmHg. C/W MOD PULM HTN probable obstructive sleep apnea-hypopnea syndrome. admit Consult Nephrology, consult Cardiology, cardiac monitoring. echocardiogram, home meds, DVT prophylaxis, full code. pulm consult IS ONCOLOGY CONSULT 24 Urine collection on - ordered by Dr Willett 29 min pt exam, chart review , pt exam, > 50% of time spent with exam, chart review, pt care coordination Vitals Vitals Vital Signs Date Time Temp Pulse Resp B/P (MAP) Pulse Ox O2 Delivery O2 Flow Rate FiO2 03/14/19 06:44 97.8 67 20 171/58 (95) 97 Nasal Cannula 3.0 97.8 Physical Exam Physical Exam GENERAL: He is alert, cooperative. His IS present, HEENT: Normal cephalic atraumatic, external auditory canals are patent EYES: Extraocular muscles are intact, pupils are equally round and reactive to light and accommodation MUSKULOSKELETAL: Well developed, well nourished, good range of motion ENDOCRINE: No thyromegaly was palpated LYMPHATICS: No cervical chain or axillary nodes were noted HEMATOPOIETIC: No bruising NECK: Supple, no JVD, no thyromegaly was noted. LUNGS: Bibasilar crackles, but they are fine. He has a slight wheeze on the right. HEART: Distant S1, S2 with a soft S3. ABDOMEN: Soft. EXTREMITIES: Trace edema. NEUROLOGIC: Normal speech, normal tone. A & O x3, moves all extremities, no obvious focal deficits. PSYCHIATRIC: He is a little anxious. SKIN: No ulcerations or rashes, good skin turgor, no jaundice. VASCULAR: Good capillary refill, neurovascular bundle appears to be intact. General: Alert, Oriented X3, Cooperative, mild distress Heart: Regular rate Lungs: Crackles Abdomen: Normal bowel sounds Extremities: No cyanosis Skin: No significant lesion Labs LABS Nuclear medicine whole body bone scan History: Prostate cancer diagnosed 4 years ago. T7 blastic lesion. Comparison: CT chest without contrast March 13, 2019. Technique: Examination performed after intravenous administration of 25.1 mCi Technetium 99m MDP. Images of the whole body were obtained in the anterior and posterior projections. Findings: Tracer uptake in the spine is heterogeneous. No definite increased tracer uptake localizing to the T7 sclerotic lesion is identified. This does not exclude osteoblastic metastasis. Recommend correlation with PSA. There is increased tracer uptake localizing to the L5 vertebral body on the right. There is increased tracer uptake in the region of the left nasal bone. This uptake is nonspecific and could be due to a sclerotic lesion or fracture or paranasal sinus disease or a meningioma. Consider correlation with CT. Increased tracer uptake of the left wrist may be degenerative. Increased tracer uptake bilaterally the shoulders is probably degenerative. Tracer distribution in the soft tissues appears normal. Impression: 1. Increased tracer uptake of the L5 vertebral body is indeterminate. Suggest correlation with cross-sectional imaging. 2. Tracer uptake in the spine is heterogeneous. No definite increased tracer uptake localizes to the T7 vertebral body. Suggest correlation with PSA. 3. Increased tracer uptake in the region of the left nasal bone. Electronically signed by: Zana Loera MD (03/14/2019 4:11 PM) [facility] DICTATED and SIGNED BY: ZANA LOERA MD DATE: 03/14/19 1613 Laboratory Tests Test 03/14/19 07:13 White Blood Count 5.2 x10^3/uL (4.0-11.0) Red Blood Count 2.79 x10^6/uL (4.30-5.70) Hemoglobin 8.5 g/dL (13.0-17.5) Hematocrit 25.0 % (39.0-53.0) Mean Corpuscular Volume 90 fL (79-100) Mean Corpuscular Hemoglobin 31 pg (25-35) Mean Corpuscular Hemoglobin Concent 34 g/dL (31-37) Red Cell Distribution Width 15.7 % (11.5-14.5) Platelet Count 158 x10^3/uL (140-400) Assessment and Plan Assessmemt and Plan Problems Medical Problems: (1) Hbdmd-fu-oznxmpv kidney injury Status: Acute (2) Dyspnea Status: Acute Comment Review of Relevant I have reviewed the following items karey (where applicable) has been applied. Labs Laboratory Tests Test 03/13/19 04:05 03/14/19 07:13 White Blood Count 5.1 x10^3/uL (4.0-11.0) 5.2 x10^3/uL (4.0-11.0) Red Blood Count 2.55 x10^6/uL (4.30-5.70) 2.79 x10^6/uL (4.30-5.70) Hemoglobin 7.8 g/dL (13.0-17.5) 8.5 g/dL (13.0-17.5) Hematocrit 23.0 % (39.0-53.0) 25.0 % (39.0-53.0) Mean Corpuscular Volume 90 fL (79-100) 90 fL (79-100) Mean Corpuscular Hemoglobin 31 pg (25-35) 31 pg (25-35) Mean Corpuscular Hemoglobin Concent 34 g/dL (31-37) 34 g/dL (31-37) Red Cell Distribution Width 15.6 % (11.5-14.5) 15.7 % (11.5-14.5) Platelet Count 141 x10^3/uL (140-400) 158 x10^3/uL (140-400) Neutrophils (%) (Auto) 61 % (31-73) Lymphocytes (%) (Auto) 22 % (24-48) Monocytes (%) (Auto) 9 % (0-9) Eosinophils (%) (Auto) 8 % (0-3) Basophils (%) (Auto) 0 % (0-3) Neutrophils # (Auto) 3.1 x10^3/uL (1.8-7.7) Lymphocytes # (Auto) 1.1 x10^3/uL (1.0-4.8) Monocytes # (Auto) 0.4 x10^3/uL (0.0-1.1) Eosinophils # (Auto) 0.4 x10^3/uL (0.0-0.7) Basophils # (Auto) 0.0 x10^3/uL (0.0-0.2) Sodium Level 140 mmol/L (136-145) Potassium Level 3.7 mmol/L (3.5-5.1) Chloride Level 107 mmol/L (98-107) Carbon Dioxide Level 23 mmol/L (21-32) Anion Gap 10 (6-14) Blood Urea Nitrogen 41 mg/dL (8-26) Creatinine 4.1 mg/dL (0.7-1.3) Estimated GFR (Cockcroft-Gault) 14.2 Glucose Level 83 mg/dL (70-99) Calcium Level 7.9 mg/dL (8.5-10.1) Phosphorus Level 3.8 mg/dL (2.6-4.7) Iron Level 26 ug/dL (65-175) Total Iron Binding Capacity 142 ug/dL (250-450) Iron Saturation 18 % (15-34) Laboratory Tests Test 03/14/19 07:13 White Blood Count 5.2 x10^3/uL (4.0-11.0) Red Blood Count 2.79 x10^6/uL (4.30-5.70) Hemoglobin 8.5 g/dL (13.0-17.5) Hematocrit 25.0 % (39.0-53.0) Mean Corpuscular Volume 90 fL (79-100) Mean Corpuscular Hemoglobin 31 pg (25-35) Mean Corpuscular Hemoglobin Concent 34 g/dL (31-37) Red Cell Distribution Width 15.7 % (11.5-14.5) Platelet Count 158 x10^3/uL (140-400) Microbiology 03/11/19 Blood Culture - Preliminary, Resulted NO GROWTH AFTER 2 DAYS Medications Current Medications Albuterol/ Ipratropium (Duoneb) 3 ml 1X ONCE NEB Last administered on 03/11/19at 13:28; Start 03/11/19 at 13:15; Stop 03/11/19 at 13:27; Status DC Sodium Chloride 1,000 ml @ 125 mls/hr Q8H IV Last administered on 03/11/19at 19:09; Start 03/11/19 at 16:29; Stop 03/12/19 at 11:59; Status DC Albuterol/ Ipratropium (Duoneb) 3 ml RTQID NEB Last administered on 03/12/19 12:07; Start 03/11/19 at 20:00; Stop 03/12/19 at 14:32; Status DC Amlodipine Besylate (Norvasc) 5 mg BID PO Last administered on 03/13/19 19:52; Start 03/11/19 at 22:30 Bupropion HCl (Wellbutrin Xl) 150 mg DAILY PO Last administered on 03/14/19 08:17; Start 03/12/19 at 09:00 Carvedilol (Coreg) 6.25 mg BIDWMEALS PO Last administered on 03/13/19 16:45; Start 03/12/19 at 08:00 Pantoprazole Sodium (Protonix) 40 mg BIDAC PO Last administered on 03/14/19 08:17; Start 03/12/19 at 07:30 Rivaroxaban (Xarelto) 15 mg QHS PO Last administered on 03/13/19 19:52; Start 03/11/19 at 22:30 Simvastatin (Zocor) 20 mg HS PO Last administered on 03/13/19 19:50; Start 03/11/19 at 22:30 Tamsulosin HCl (Flomax) 0.4 mg BID PO Last administered on 03/14/19 08:17; Start 03/11/19 at 22:30 Non-Formulary Medication (Albuterol Sulfate (Ventolin Hfa Inhaler)) 2 puff QID INH ; Start 03/12/19 at 09:00; Status UNV Non-Formulary Medication (Budesonide/ Formoterol Fumarate (Symbicort 160-4.5 Mcg Inhaler)) 2 puff BID IH ; Start 03/12/19 at 09:00; Status UNV Diphenhydramine HCl (Benadryl) 50 mg PRN Q6HRS PRN PO ITCHING; Start 03/11/19 at 22:30 Multivitamins (Thera M Plus) 1 tab DAILY PO Last administered on 03/14/19 08:16; Start 03/12/19 at 09:00 Budesonide (Pulmicort) 0.5 mg RTBID NEB Last administered on 03/13/19 20:42; Start 03/12/19 at 08:00 Furosemide (Lasix) 40 mg 1X ONCE IVP Last administered on 03/12/19 12:15; Start 03/12/19 at 12:00; Stop 03/12/19 at 12:03; Status DC Potassium Chloride (Klor-Con) 20 meq 1X ONCE PO Last administered on 03/12/19 12:16; Start 03/12/19 at 12:00; Stop 03/12/19 at 12:03; Status DC Furosemide (Lasix) 40 mg BID92 PO Last administered on 03/14/19 08:17; Start 03/12/19 at 14:00 Hydralazine HCl (Apresoline Inj) 10 mg PRN Q4HRS PRN IVP ELEVATED BP, SEE COMMENTS Last administered on 03/14/19 06:13; Start 03/12/19 at 12:00 Albuterol Sulfate (Ventolin Neb Soln) 2.5 mg RTQID NEB Last administered on 03/13/19 20:42; Start 03/12/19 at 16:00 Alprazolam (Xanax) 0.5 mg PRN Q8HRS PRN PO ANXIETY / AGITATION Last administered on 03/13/19 19:50; Start 03/12/19 at 19:30 Darbepoetin Guillermo (ARANESP for DIALYSIS PTS) 60 mcg Torres SQ Last administered on 03/13/19 19:58; Start 03/13/19 at 21:00 Polysaccharide Iron Complex (Niferex 150) 150 mg DAILY PO Last administered on 03/14/19 08:16; Start 03/13/19 at 14:00 Active Scripts Active Reported Xarelto (Rivaroxaban) 15 Mg Tablet 15 Mg PO QHS Flomax (Tamsulosin Hcl) 0.4 Mg Cap.er.24h 0.4 Mg PO BID Simvastatin 20 Mg Tablet 20 Mg PO HS Pantoprazole Sodium (Pantoprazole Sodium) 40 Mg Tablet.dr 40 Mg PO BID Multi Vitamin Daily (Multivitamin) 1 Each Tablet 1 Tab PO DAILY 30 Days Diphenhydramine Hcl 50 Mg Capsule 50 Mg PO Q6HRS PRN Carvedilol (Carvedilol) 6.25 Mg Tablet 6.25 Mg PO BIDWMEALS Bupropion Xl (Bupropion Hcl) 150 Mg Tab.er.24h 150 Mg PO QAM Symbicort 160-4.5 Mcg Inhaler (Budesonide/Formoterol Fumarate) 10.2 Gm Hfa.aer.ad 2 Puff IH BID Amlodipine Besylate 5 Mg Tablet 5 Mg PO BID Ventolin Hfa Inhaler (Albuterol Sulfate) 18 Gm Hfa.aer.ad 2 Puff INH QID Vitals/I & O Vital Sign - Last 24 Hours 03/13/19 03/13/19 03/13/19 03/13/19 11:00 12:36 15:00 15:44 Temp 97.9 97.6 97.9 97.6 Pulse 60 50 Resp 18 18 B/P (MAP) 142/43 (76) 152/54 (86) Pulse Ox 96 95 96 95 O2 Delivery Room Air Room Air Room Air Room Air 03/13/19 03/13/19 03/13/19 03/13/19 16:45 19:22 19:52 20:00 Temp 98.8 98.8 Pulse 56 61 61 Resp 24 B/P (MAP) 155/49 162/52 (88) 162/52 Pulse Ox 96 O2 Delivery Room Air Room Air 03/13/19 03/13/19 03/14/19 03/14/19 20:42 23:54 03:15 06:13 Temp 97.7 98.3 97.7 98.3 Pulse 62 63 80 Resp 24 20 B/P (MAP) 117/54 (75) 176/70 (105) 176/67 Pulse Ox 95 96 94 O2 Delivery Room Air Room Air Room Air 03/14/19 06:44 Temp 97.8 97.8 Pulse 67 Resp 20 B/P (MAP) 171/58 (95) Pulse Ox 97 O2 Delivery Nasal Cannula O2 Flow Rate 3.0 Intake and Output 03/13/19 03/13/19 03/14/19 14:59 22:59 06:59 Intake Total 300 ml 400 ml Output Total 1000 ml 950 ml Balance 300 ml -1000 ml -550 ml TANVIR CARRASCO MD Mar 14, 2019 08:20
--- NOTE | 2019-03-14 08:37 | PDOC ---
PULMONARY PROGRESS NOTES Subjective PT NOT MORE SOA NO INCREASE COUGH Vitals Vital Signs Date Time Temp Pulse Resp B/P (MAP) Pulse Ox O2 Delivery O2 Flow Rate FiO2 03/14/19 08:19 67 171/58 03/14/19 06:44 97.8 20 97 Nasal Cannula 3.0 97.8 ROS: No Nausea, No Chest Pain, No Abdominal Pain, No Increase Cough General: Alert Lungs: Crackles Cardiovascular: S1, S2 Abdomen: Soft Neuro Exam: Alert Extremities: No Edema Skin: Warm Labs Laboratory Tests Test 03/13/19 04:05 03/14/19 07:13 White Blood Count 5.1 x10^3/uL (4.0-11.0) 5.2 x10^3/uL (4.0-11.0) Red Blood Count 2.55 x10^6/uL (4.30-5.70) 2.79 x10^6/uL (4.30-5.70) Hemoglobin 7.8 g/dL (13.0-17.5) 8.5 g/dL (13.0-17.5) Hematocrit 23.0 % (39.0-53.0) 25.0 % (39.0-53.0) Mean Corpuscular Volume 90 fL (79-100) 90 fL (79-100) Mean Corpuscular Hemoglobin 31 pg (25-35) 31 pg (25-35) Mean Corpuscular Hemoglobin Concent 34 g/dL (31-37) 34 g/dL (31-37) Red Cell Distribution Width 15.6 % (11.5-14.5) 15.7 % (11.5-14.5) Platelet Count 141 x10^3/uL (140-400) 158 x10^3/uL (140-400) Neutrophils (%) (Auto) 61 % (31-73) Lymphocytes (%) (Auto) 22 % (24-48) Monocytes (%) (Auto) 9 % (0-9) Eosinophils (%) (Auto) 8 % (0-3) Basophils (%) (Auto) 0 % (0-3) Neutrophils # (Auto) 3.1 x10^3/uL (1.8-7.7) Lymphocytes # (Auto) 1.1 x10^3/uL (1.0-4.8) Monocytes # (Auto) 0.4 x10^3/uL (0.0-1.1) Eosinophils # (Auto) 0.4 x10^3/uL (0.0-0.7) Basophils # (Auto) 0.0 x10^3/uL (0.0-0.2) Sodium Level 140 mmol/L (136-145) Potassium Level 3.7 mmol/L (3.5-5.1) Chloride Level 107 mmol/L (98-107) Carbon Dioxide Level 23 mmol/L (21-32) Anion Gap 10 (6-14) Blood Urea Nitrogen 41 mg/dL (8-26) Creatinine 4.1 mg/dL (0.7-1.3) Estimated GFR (Cockcroft-Gault) 14.2 Glucose Level 83 mg/dL (70-99) Calcium Level 7.9 mg/dL (8.5-10.1) Phosphorus Level 3.8 mg/dL (2.6-4.7) Iron Level 26 ug/dL (65-175) Total Iron Binding Capacity 142 ug/dL (250-450) Iron Saturation 18 % (15-34) Laboratory Tests Test 03/14/19 07:13 White Blood Count 5.2 x10^3/uL (4.0-11.0) Red Blood Count 2.79 x10^6/uL (4.30-5.70) Hemoglobin 8.5 g/dL (13.0-17.5) Hematocrit 25.0 % (39.0-53.0) Mean Corpuscular Volume 90 fL (79-100) Mean Corpuscular Hemoglobin 31 pg (25-35) Mean Corpuscular Hemoglobin Concent 34 g/dL (31-37) Red Cell Distribution Width 15.7 % (11.5-14.5) Platelet Count 158 x10^3/uL (140-400) Medications Active Scripts Medications Dose Route/Sig Max Daily Dose Days Date Category Xarelto (Rivaroxaban) 15 Mg Tablet 15 Mg PO QHS 03/11/19 Reported Flomax (Tamsulosin Hcl) 0.4 Mg Cap.er.24h 0.4 Mg PO BID 03/11/19 Reported Simvastatin 20 Mg Tablet 20 Mg PO HS 03/11/19 Reported Pantoprazole Sodium (Pantoprazole Sodium) 40 Mg Tablet.dr 40 Mg PO BID 03/11/19 Reported Multi Vitamin Daily (Multivitamin) 1 Each Tablet 1 Tab PO DAILY 30 03/11/19 Reported Diphenhydramine Hcl 50 Mg Capsule 50 Mg PO Q6HRS PRN 03/11/19 Reported Carvedilol (Carvedilol) 6.25 Mg Tablet 6.25 Mg PO BIDWMEALS 03/11/19 Reported Bupropion Xl (Bupropion Hcl) 150 Mg Tab.er.24h 150 Mg PO QAM 03/11/19 Reported Symbicort 160-4.5 Mcg Inhaler (Budesonide/Formoterol Fumarate) 10.2 Gm Hfa.aer.ad 2 Puff IH BID 03/11/19 Reported Amlodipine Besylate 5 Mg Tablet 5 Mg PO BID 03/11/19 Reported Ventolin Hfa Inhaler (Albuterol Sulfate) 18 Gm Hfa.aer.ad 2 Puff INH QID 03/11/19 Reported Impression . IMPRESSION: 1. Dyspnea secondary to volume overload with quupd-jv-fsucyri kidney failure, cannot rule out acute diastolic versus systolic congestive heart failure, chronic obstructive pulmonary disease. 2. Abnormal chest x-ray. 3. Chronic obstructive pulmonary disease. 4. Acute on chronic kidney disease. 5. Hypertension. 6. Paroxysmal atrial fibrillation. 7. Tobacco habituation. 8. 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 CT CHEST IMPRESSION: 1. Moderate bilateral effusions. 2. Bilateral lobe lower lobe atelectasis or infiltrates. 3. Small nodule along the fissure on the right, Fleischner Society guidelines recommend an optional one-year follow-up for I risk individuals. 4. Granulomatous ossifications. 5. Sclerotic or possibly blastic lesion T7 correlation with any history of prostate cancer would be of benefit. Plan . REPEAT CT IN 6 MONTHS WORK UP IN PROGRESS FOR T7 BONY LESION PER DR DE LA ROSA 02 D/C SMOKING WILL FOLLOW OTHER CONSULTANTS OUT PT SLEEP STUDY FAVIAN MORENO MD Mar 14, 2019 08:37
[2019-03-14] MEDS: BUDESONIDE 0.5 MG/2 ML NEBU. NEB SCH ×2 (08:45→19:19)
[2019-03-14] MEDS: ALBUTEROL SULFATE 2.5 MG/3 ML NEBU. NEB SCH ×4 (08:45→19:19)
[2019-03-14 08:46] LABS: CREATININE 3.9 mg/dL (0.7-1.3); GFR 15.1; POTASSIUM 3.8 mmol/L (3.5-5.1)
--- NOTE | 2019-03-14 09:59 | CONS ---
DATE OF CONSULTATION: 03/13/2019 I was asked to see this 79-year-old gentleman for abnormal chest x-ray and COPD. HISTORY OF PRESENT ILLNESS: He does have history of 21-ablb-mzue smoking, continues to smoke 2-3 cigarettes per day. He has diagnosis of COPD, but is not on any inhalers. He has a history of chronic kidney disease. About a week ago, he was given antibiotic and his medication was changed. Antibiotic was for possible cellulitis on his forearm. Two days after starting the antibiotic, he started to have increased shortness of breath. He also has had lower extremity edema. He denies chest pain. He has daily cough with small amount of sputum production, which is not worse. He denies fever, chills, or nasal congestion. He denies chest pain. He had kidney function tests done at his primary physician's office, and was told he has worsening of his kidney function and was advised to go to Emergency Room. He was admitted for further evaluation and treatment. PAST MEDICAL HISTORY: COPD, chronic kidney disease, hypertension, paroxysmal atrial fibrillation on Xarelto. ALLERGIES: NSAIDs, IODINE, NITROFURANTOIN, DIURETICS, DUTASTERIDE, FINASTERIDE, REGADENOSON. MEDICATIONS: Currently, he is on Xanax, albuterol q.i.d., Lasix 40 mg p.o. b.i.d., Wellbutrin, multivitamin, Pulmicort, Coreg, Protonix, Xarelto, Zocor and Norvasc. SOCIAL HISTORY: History of 30-fbun-coko smoking, continues to smoke 2-3 cigarettes per day. FAMILY HISTORY: There is no history of lung disease. REVIEW OF SYSTEMS: As mentioned as above. He does have snoring and excessive daytime sleepiness, has not had sleep study. Other systems are otherwise negative. PHYSICAL EXAMINATION: GENERAL: This is an overweight gentleman. VITAL SIGNS: His O2 saturation is 93%, heart rate 62, blood pressure 159/53, temperature 97.9. HEENT: Normocephalic, atraumatic. Pupils are equal, round, and reactive to light. There is shallow oropharynx. Nose is clear. NECK: There is no JVD, lymphadenopathy or thyromegaly. CARDIOVASCULAR: Regular rate and rhythm. PMI is nondisplaced. CHEST: Inspection is normal. LUNGS: There are bibasilar crackles, dullness at the bases. ABDOMEN: Soft. Bowel sounds are good. There is no mass. EXTREMITIES: There is edema. LYMPHATICS: There is lymphadenopathy. NEUROLOGIC: Alert and oriented. SKIN: Chronic changes. LABORATORY DATA: I reviewed the following lab data; chest x-ray shows mild left basilar atelectasis/infiltrates/effusion. Sodium 140, potassium 3.7, chloride 107, CO2 of 23, BUN 41, creatinine 4.1, lactic acid 1.3, troponin 0.029. BNP 7222. IMPRESSION: 1. Dyspnea secondary to volume overload with sujqi-ny-ffhjchd kidney failure, cannot rule out acute diastolic versus systolic congestive heart failure, chronic obstructive pulmonary disease. 2. Abnormal chest x-ray. 3. Chronic obstructive pulmonary disease. 4. Acute on chronic kidney disease. 5. Hypertension. 6. Paroxysmal atrial fibrillation. 7. Tobacco habituation. 8. 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 PLAN AND RECOMMENDATIONS: 1. Titrate FiO2 to keep O2 saturation 92%. 2. Continue bronchodilator. 3. Continue inhaled corticosteroid. 4. I will do a CT of the chest without contrast to have a better look at his chest x-ray abnormalities also he has significant history of smoking. 5. Nephrology is on the case. 6. Cardiology is on the case. 7. I agree with echocardiogram. He is on Xarelto. His kidney function test is worsening, may consider adjustment of dose. 8. The findings and recommendations were discussed with the patient. I have answered all of his questions. He understood and agreed to proceed with the plan. 9. I had a long discussion with him regarding smoking cessation. I have advised him to stop smoking forever. 10. I have discussed obstructive sleep apnea-hypopnea syndrome, the importance of diagnosis and treatment, if untreated increase cardiovascular and BENEFITS CLERK morbidity and mortality. I do recommend a sleep study as an outpatient. Thank you very much for allowing me to participate in care of this very nice gentleman. MIGUEL MAXWELL M.D. : NADIA/stephanie JOB#: [id number] / [id number]
--- NOTE | 2019-03-14 10:06 | PDOC2 ---
CONSULT Date of Consult Date of Consult DATE: 03/14/19 TIME: 09:55 Reason for consultation: T7 lesion Consult: Hematology oncology, Dr. Yani Kirk History of present illness: He is a 79-year-old man with a history of prostate cancer that was followed by [facility] in the past, his oncologist he does not remember her name but she had stated that at that time it would not be beneficial to treat him, his PSA was 5.5 last, tells me this was quite a while ago, and has had 2 biopsies, the first was positive for prostate cancer and the second was not. He is otherwise doing well from that standpoint and has no pain at a lesion seen at T7. He does have worsening renal failure, and was sent from his physician in for further evaluation, kidney function is severely reduced, chronic, has been worsening over time, associated with edema, he feels better since he's here on current tx, nephro is involved, and has some occasional shortness of breath associated with anxiety-- this is worse after having dreams that are not necessarily bad dreams. He also has claustrophobia. He is on Xarelto for a flutter. He did have some internal bleeding after hernia surgery that resolved on its own with 1 unit of blood. He has anemia and is on Aranesp currently. 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 Physical exam: Vitals reviewed Gen.: Well-nourished and well-developed in no acute distress HEENT: mucous membranes moist, head normocephalic atraumatic Neck: Supple, no lymphadenopathy Lymph nodes: No palpable lymphadenopathy neck or axilla Lungs: Breathing comfortably w/o respiratory distress Abdomen: Soft, nontender, nondistended Extremities: No cyanosis, does have BLE edema L>R slightly Skin: No obvious rashes or skin breakdown Neuro: Alert and oriented 3 Psych: Pleasant mood and affect Lab reviewed: White count 5.2, hemoglobin 8.5 up from 7.7, platelets 158 Reticulocyte count 0.9 Creatinine 4.1 Iron sat 18% ProBNP 7222 Blood culture from 11 March negative Rads reviewed: Chest x-ray showed left medial basilar retrocardiac atelectasis vs possibly infiltrate CT chest showed moderate bilateral effusions, bilateral lower lobe atelectasis/infiltrate, right small pulmonary nodule, granulomatous ossific ations, sclerotic or possibly blastic lesion at T7 Kidney ultrasound showed no hydronephrosis Case discussed with: Patient, [facility] as available, including labs and radiology, please see note for summary details. Assessment and Plan: He is a 79-year-old man admitted with worsening renal failure and has a lesion at T7 T7 lesion: We'll check bone scan and PSA History of prostate cancer: Concern is for possible metastatic bony disease, will begin with PSA and bone scan Anemia: He is on Aranesp, hemoglobin remains greater than 7, will check ferritin level Kidney failure: Per nephrology Pulmonary nodule and shortness of breath: Per pulmonary, effusions may need tapped if not related to heart failure? Cardiology is involved as well History of a flutter: On Xarelto, may need to be held if considering biopsy h/o tobacco: He tells me he has quit this admit, I encouraged him Thank you kindly for this consultation, we'll follow, and please do not hesitate to call with further questions. Past Medical History Cardiovascular: HTN Pulmonary: COPD GI: Constipation Heme/Onc: Anemia NOS Renal/: Chronic renal insuff Family History Family History: Hypertension Social History No ALCOHOL: none Drugs: None Lives: with Family Current Problem List Problem List Problems Medical Problems: (1) Urefh-wq-[id number] kidney injury Status: Acute (2) Dyspnea Status: Acute Current Medications Current Medications Current Medications Albuterol/ Ipratropium (Duoneb) 3 ml 1X ONCE NEB Last administered on 03/11/19at 13:28; Start 03/11/19 at 13:15; Stop 03/11/19 at 13:27; Status DC Sodium Chloride 1,000 ml @ 125 mls/hr Q8H IV Last administered on 03/11/19at 19:09; Start 03/11/19 at 16:29; Stop 03/12/19 at 11:59; Status DC Albuterol/ Ipratropium (Duoneb) 3 ml RTQID NEB Last administered on 03/12/19at 12:07; Start 03/11/19 at 20:00; Stop 03/12/19 at 14:32; Status DC Amlodipine Besylate (Norvasc) 5 mg BID PO Last administered on 03/14/19 08:19; Start 03/11/19 at 22:30 Bupropion HCl (Wellbutrin Xl) 150 mg DAILY PO Last administered on 03/14/19 08:17; Start 03/12/19 at 09:00 Carvedilol (Coreg) 6.25 mg BIDWMEALS PO Last administered on 03/14/19at 08:19; Start 03/12/19 at 08:00 Pantoprazole Sodium (Protonix) 40 mg BIDAC PO Last administered on 03/14/19 08:17; Start 03/12/19 at 07:30 Rivaroxaban (Xarelto) 15 mg QHS PO Last administered on 03/13/19 19:52; Start 03/11/19 at 22:30 Simvastatin (Zocor) 20 mg HS PO Last administered on 03/13/19at 19:50; Start 03/11/19 at 22:30 Tamsulosin HCl (Flomax) 0.4 mg BID PO Last administered on 03/14/19 08:17; Start 03/11/19 at 22:30 Non-Formulary Medication (Albuterol Sulfate (Ventolin Hfa Inhaler)) 2 puff QID INH ; Start 03/12/19 at 09:00; Status UNV Non-Formulary Medication (Budesonide/ Formoterol Fumarate (Symbicort 160-4.5 Mcg Inhaler)) 2 puff BID IH ; Start 03/12/19 at 09:00; Status UNV Diphenhydramine HCl (Benadryl) 50 mg PRN Q6HRS PRN PO ITCHING; Start 03/11/19 at 22:30 Multivitamins (Thera M Plus) 1 tab DAILY PO Last administered on 03/14/19 08:16; Start 03/12/19 at 09:00 Budesonide (Pulmicort) 0.5 mg RTBID NEB Last administered on 03/14/19 08:45; Start 03/12/19 at 08:00 Furosemide (Lasix) 40 mg 1X ONCE IVP Last administered on 03/12/19 12:15; Start 03/12/19 at 12:00; Stop 03/12/19 at 12:03; Status DC Potassium Chloride (Klor-Con) 20 meq 1X ONCE PO Last administered on 03/12/19 12:16; Start 03/12/19 at 12:00; Stop 03/12/19 at 12:03; Status DC Furosemide (Lasix) 40 mg BID92 PO Last administered on 03/14/19 08:17; Start 03/12/19 at 14:00 Hydralazine HCl (Apresoline Inj) 10 mg PRN Q4HRS PRN IVP ELEVATED BP, SEE COMMENTS Last administered on 03/14/19 06:13; Start 03/12/19 at 12:00 Albuterol Sulfate (Ventolin Neb Soln) 2.5 mg RTQID NEB Last administered on 03/14/19 08:45; Start 03/12/19 at 16:00 Alprazolam (Xanax) 0.5 mg PRN Q8HRS PRN PO ANXIETY / AGITATION Last administered on 03/13/19 19:50; Start 03/12/19 at 19:30 Darbepoetin Guillermo (ARANESP for DIALYSIS PTS) 60 mcg Torres SQ Last administered on 03/13/19 19:58; Start 03/13/19 at 21:00 Polysaccharide Iron Complex (Niferex 150) 150 mg DAILY PO Last administered on 03/14/19 08:16; Start 03/13/19 at 14:00 Active Scripts Active Reported Xarelto (Rivaroxaban) 15 Mg Tablet 15 Mg PO QHS Flomax (Tamsulosin Hcl) 0.4 Mg Cap.er.24h 0.4 Mg PO BID Simvastatin 20 Mg Tablet 20 Mg PO HS Pantoprazole Sodium (Pantoprazole Sodium) 40 Mg Tablet.dr 40 Mg PO BID Multi Vitamin Daily (Multivitamin) 1 Each Tablet 1 Tab PO DAILY 30 Days Diphenhydramine Hcl 50 Mg Capsule 50 Mg PO Q6HRS PRN Carvedilol (Carvedilol) 6.25 Mg Tablet 6.25 Mg PO BIDWMEALS Bupropion Xl (Bupropion Hcl) 150 Mg Tab.er.24h 150 Mg PO QAM Symbicort 160-4.5 Mcg Inhaler (Budesonide/Formoterol Fumarate) 10.2 Gm Hfa.aer.ad 2 Puff IH BID Amlodipine Besylate 5 Mg Tablet 5 Mg PO BID Ventolin Hfa Inhaler (Albuterol Sulfate) 18 Gm Hfa.aer.ad 2 Puff INH QID Allergies Allergies: Coded Allergies: regadenoson (Verified Allergy, Severe, Anaphylaxis, 03/11/19) Iodinated Contrast Media (Verified Allergy, Intermediate, 03/12/19) Nitrofuran Analogues (Verified Allergy, Intermediate, rash, 03/12/19) dutasteride (Verified Allergy, Intermediate, rash, 03/12/19) finasteride (Verified Allergy, Intermediate, hives, 03/12/19) NSAIDS (Non-Steroidal Anti-Inflamma (Verified Adverse Reaction, Intermediate, 03/12/19) CKD Uncoded Allergies: diuretics (Adverse Reaction, Unknown, 03/11/19) due to CKD Vitals VITALS Vital Signs Date Time Temp Pulse Resp B/P (MAP) Pulse Ox O2 Delivery O2 Flow Rate FiO2 03/14/19 08:37 97 Room Air 3.0 03/14/19 08:19 67 171/58 03/14/19 06:44 97.8 20 97.8 Labs Labs Laboratory Tests Test 03/13/19 04:05 03/14/19 07:13 White Blood Count 5.1 x10^3/uL (4.0-11.0) 5.2 x10^3/uL (4.0-11.0) Red Blood Count 2.55 x10^6/uL (4.30-5.70) 2.79 x10^6/uL (4.30-5.70) Hemoglobin 7.8 g/dL (13.0-17.5) 8.5 g/dL (13.0-17.5) Hematocrit 23.0 % (39.0-53.0) 25.0 % (39.0-53.0) Mean Corpuscular Volume 90 fL (79-100) 90 fL (79-100) Mean Corpuscular Hemoglobin 31 pg (25-35) 31 pg (25-35) Mean Corpuscular Hemoglobin Concent 34 g/dL (31-37) 34 g/dL (31-37) Red Cell Distribution Width 15.6 % (11.5-14.5) 15.7 % (11.5-14.5) Platelet Count 141 x10^3/uL (140-400) 158 x10^3/uL (140-400) Neutrophils (%) (Auto) 61 % (31-73) Lymphocytes (%) (Auto) 22 % (24-48) Monocytes (%) (Auto) 9 % (0-9) Eosinophils (%) (Auto) 8 % (0-3) Basophils (%) (Auto) 0 % (0-3) Neutrophils # (Auto) 3.1 x10^3/uL (1.8-7.7) Lymphocytes # (Auto) 1.1 x10^3/uL (1.0-4.8) Monocytes # (Auto) 0.4 x10^3/uL (0.0-1.1) Eosinophils # (Auto) 0.4 x10^3/uL (0.0-0.7) Basophils # (Auto) 0.0 x10^3/uL (0.0-0.2) Sodium Level 140 mmol/L (136-145) 140 mmol/L (136-145) Potassium Level 3.7 mmol/L (3.5-5.1) 3.8 mmol/L (3.5-5.1) Chloride Level 107 mmol/L (98-107) 106 mmol/L (98-107) Carbon Dioxide Level 23 mmol/L (21-32) 22 mmol/L (21-32) Anion Gap 10 (6-14) 12 (6-14) Blood Urea Nitrogen 41 mg/dL (8-26) 39 mg/dL (8-26) Creatinine 4.1 mg/dL (0.7-1.3) 3.9 mg/dL (0.7-1.3) Estimated GFR (Cockcroft-Gault) 14.2 15.1 Glucose Level 83 mg/dL (70-99) 87 mg/dL (70-99) Calcium Level 7.9 mg/dL (8.5-10.1) 8.0 mg/dL (8.5-10.1) Phosphorus Level 3.8 mg/dL (2.6-4.7) Iron Level 26 ug/dL (65-175) Total Iron Binding Capacity 142 ug/dL (250-450) Iron Saturation 18 % (15-34) Laboratory Tests Test 03/14/19 07:13 White Blood Count 5.2 x10^3/uL (4.0-11.0) Red Blood Count 2.79 x10^6/uL (4.30-5.70) Hemoglobin 8.5 g/dL (13.0-17.5) Hematocrit 25.0 % (39.0-53.0) Mean Corpuscular Volume 90 fL (79-100) Mean Corpuscular Hemoglobin 31 pg (25-35) Mean Corpuscular Hemoglobin Concent 34 g/dL (31-37) Red Cell Distribution Width 15.7 % (11.5-14.5) Platelet Count 158 x10^3/uL (140-400) Sodium Level 140 mmol/L (136-145) Potassium Level 3.8 mmol/L (3.5-5.1) Chloride Level 106 mmol/L (98-107) Carbon Dioxide Level 22 mmol/L (21-32) Anion Gap 12 (6-14) Blood Urea Nitrogen 39 mg/dL (8-26) Creatinine 3.9 mg/dL (0.7-1.3) Estimated GFR (Cockcroft-Gault) 15.1 Glucose Level 87 mg/dL (70-99) Calcium Level 8.0 mg/dL (8.5-10.1) YANI KIRK MD Mar 14, 2019 10:06
[2019-03-14 11:47] VITALS: BP 153/44
--- NOTE | 2019-03-14 12:00 | PDOC ---
SUBJECTIVE ROS No complaints- NoN/V. good appetite 24 Urine collection on going- ordered by Dr Willett Pt reports will complete at 4 pm OBJECTIVE Vital Signs Vital Signs Date Time Temp Pulse Resp B/P (MAP) Pulse Ox O2 Delivery O2 Flow Rate FiO2 03/14/19 11:47 98.2 80 18 153/44 (80) 98 Room Air 98.2 03/14/19 08:37 3.0 I & 0 Intake and Output 03/14/19 07:00 Intake Total 700 ml Output Total 1950 ml Balance -1250 ml Intake Oral 700 ml Output Urine Total 1950 ml PHYSICAL EXAM Physical Exam Gen.: no acute distress, sitting in chair HEENT: mucous membranes moist, head normocephalic atraumatic Neck: Supple, Lungs: Breathing comfortably w/o respiratory distress, CTA Abdomen: Soft, nontender, nondistended Extremities: edema L trace to 1+ >R trace - chronic Skin: No obvious rashes or skin breakdown Neuro: Alert and oriented 3 Psych: Pleasant mood and affect No ramsey DIAGNOSIS/ASSESSMENT Assessment & Plan CKD stage 4 - Per initial Neph consult Note baseline stage 3/4 Pt was seeing [facility] Developer at [facility] 24 Ur collection for Cr Cl ordered by Dr. 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 Anemia- On Fe and XIOMARA HTN- antihypertensives Edema- Chronic , stable Dyspnea- None at rest CHF- per cardiology, currently appears to be compensated On lasix BID T7 lesion:Onc following History of prostate cancer: Concern is for possible metastatic bony disease, Bone scan pending History of a flutter: On Xarelto Moderate bilateral effusions- On CT scan COMMENT/RELEVANT DATA Meds Current Medications Medications (Trade) Dose Ordered Sig/Diane Start Time Stop Time Status Last Admin Dose Admin Albuterol Sulfate (Ventolin Neb Soln) 2.5 mg RTQID 03/12/19 16:00 03/14/19 11:47 2.5 MG Albuterol/ Ipratropium (Duoneb) 3 ml RTQID 03/11/19 20:00 03/12/19 14:32 DC 03/12/19 12:07 3 ML Alprazolam (Xanax) 0.5 mg PRN Q8HRS PRN 03/12/19 19:30 03/13/19 19:50 0.5 MG Amlodipine Besylate (Norvasc) 5 mg BID 03/11/19 22:30 03/14/19 08:19 5 MG Budesonide (Pulmicort) 0.5 mg RTBID 03/12/19 08:00 03/14/19 08:45 0.5 MG Bupropion HCl (Wellbutrin Xl) 150 mg DAILY 03/12/19 09:00 03/14/19 08:17 150 MG Carvedilol (Coreg) 6.25 mg BIDWMEALS 03/12/19 08:00 03/14/19 08:19 6.25 MG Darbepoetin Guillermo (ARANESP for DIALYSIS PTS) 60 mcg Torres 03/13/19 21:00 03/13/19 19:58 60 MCG Diphenhydramine HCl (Benadryl) 50 mg PRN Q6HRS PRN 03/11/19 22:30 Furosemide (Lasix) 40 mg BID92 03/12/19 14:00 03/14/19 08:17 40 MG Hydralazine HCl (Apresoline Inj) 10 mg PRN Q4HRS PRN 03/12/19 12:00 03/14/19 06:13 10 MG Multivitamins (Thera M Plus) 1 tab DAILY 03/12/19 09:00 03/14/19 08:16 1 TAB Non-Formulary Medication (Albuterol Sulfate (Ventolin Hfa Inhaler)) 2 puff QID 03/12/19 09:00 UNV Non-Formulary Medication (Budesonide/ Formoterol Fumarate (Symbicort 160-4.5 Mcg Inhaler)) 2 puff BID 03/12/19 09:00 UNV Pantoprazole Sodium (Protonix) 40 mg BIDAC 03/12/19 07:30 03/14/19 08:17 40 MG Polysaccharide Iron Complex (Niferex 150) 150 mg DAILY 03/13/19 14:00 03/14/19 08:16 150 MG Potassium Chloride (Klor-Con) 20 meq 1X ONCE 03/12/19 12:00 03/12/19 12:03 DC 03/12/19 12:16 20 MEQ Rivaroxaban (Xarelto) 15 mg QHS 03/11/19 22:30 03/13/19 19:52 15 MG Simvastatin (Zocor) 20 mg HS 03/11/19 22:30 03/13/19 19:50 20 MG Sodium Chloride 1,000 ml @ 125 mls/hr Q8H 03/11/19 16:29 03/12/19 11:59 DC 03/11/19 19:09 125 MLS/HR Tamsulosin HCl (Flomax) 0.4 mg BID 03/11/19 22:30 03/14/19 08:17 0.4 MG Lab Laboratory Tests Test 03/14/19 07:13 White Blood Count 5.2 x10^3/uL (4.0-11.0) Red Blood Count 2.79 x10^6/uL (4.30-5.70) Hemoglobin 8.5 g/dL (13.0-17.5) Hematocrit 25.0 % (39.0-53.0) Mean Corpuscular Volume 90 fL (79-100) Mean Corpuscular Hemoglobin 31 pg (25-35) Mean Corpuscular Hemoglobin Concent 34 g/dL (31-37) Red Cell Distribution Width 15.7 % (11.5-14.5) Platelet Count 158 x10^3/uL (140-400) Sodium Level 140 mmol/L (136-145) Potassium Level 3.8 mmol/L (3.5-5.1) Chloride Level 106 mmol/L (98-107) Carbon Dioxide Level 22 mmol/L (21-32) Anion Gap 12 (6-14) Blood Urea Nitrogen 39 mg/dL (8-26) Creatinine 3.9 mg/dL (0.7-1.3) Estimated GFR (Cockcroft-Gault) 15.1 Glucose Level 87 mg/dL (70-99) Calcium Level 8.0 mg/dL (8.5-10.1) Ferritin 114 ng/mL (26-388) Prostate Specific Antigen 9.27 ng/mL (0.00-4.00) Results All relevant outside records, renal labs, imaging studies, telemetry/EKG's were reviewed CT chest w/o contrast .1. Moderate bilateral effusions. 2. Bilateral lobe lower lobe atelectasis or infiltrates. 3. Small nodule along the fissure on the right, Fleischner Society guidelines recommend an optional one-year follow-up for I risk individuals. 4. Granulomatous ossifications. 5. Sclerotic or possibly blastic lesion T7 correlation with any history of prostate cancer would be of benefit. JEWEL CARMONA MD Mar 14, 2019 12:00
--- NOTE | 2019-03-14 14:14 | NUR ---
SS following up with discharge planning. SS reviewed pt chart. Pt is from home with spouse and is currently on room air. PT/OT ordered. SS will await PT/OT evaluations and recommendations and will proceed accordingly with discharge planning.
[2019-03-14 14:34] VITALS: BP 143/44
[2019-03-14 15:10] LABS: IMMUNOGLOBULIN A 243 mg/dL (61-437); IMMUNOGLOBULIN G 795 mg/dL (700-1600); IMMUNOGLOBULIN M 61 mg/dL (15-143)
--- NOTE | 2019-03-14 15:27 | NUR ---
24 hour urine specimen collection completed at 1452, sent to lab for analysis.
--- NOTE | 2019-03-14 16:13 | RAD ---
Nuclear medicine whole body bone scan History: Prostate cancer diagnosed 4 years ago. T7 blastic lesion. Comparison: CT chest without contrast March 13, 2019. Technique: Examination performed after intravenous administration of 25.1 mCi Technetium 99m MDP. Images of the whole body were obtained in the anterior and posterior projections. Findings: Tracer uptake in the spine is heterogeneous. No definite increased tracer uptake localizing to the T7 sclerotic lesion is identified. This does not exclude osteoblastic metastasis. Recommend correlation with PSA. There is increased tracer uptake localizing to the L5 vertebral body on the right. There is increased tracer uptake in the region of the left nasal bone. This uptake is nonspecific and could be due to a sclerotic lesion or fracture or paranasal sinus disease or a meningioma. Consider correlation with CT. Increased tracer uptake of the left wrist may be degenerative. Increased tracer uptake bilaterally the shoulders is probably degenerative. Tracer distribution in the soft tissues appears normal. Impression: 1. Increased tracer uptake of the L5 vertebral body is indeterminate. Suggest correlation with cross-sectional imaging. 2. Tracer uptake in the spine is heterogeneous. No definite increased tracer uptake localizes to the T7 vertebral body. Suggest correlation with PSA. 3. Increased tracer uptake in the region of the left nasal bone. Electronically signed by: Zana Loera MD (03/14/2019 4:11 PM) [facility]
--- NOTE | 2019-03-14 16:38 | PDOC ---
PROGRESS NOTES Subjective Subjective Patient seen and examined Objective Objective Vital Signs Date Time Temp Pulse Resp B/P (MAP) Pulse Ox O2 Delivery O2 Flow Rate FiO2 03/14/19 14:34 98.4 51 18 143/44 (77) 98 Room Air 98.4 03/14/19 08:37 3.0 Intake and Output 03/14/19 07:00 Intake Total 700 ml Output Total 1950 ml Balance -1250 ml Intake Oral 700 ml Output Urine Total 1950 ml Physical Exam Abdomen: Normal bowel sounds Heart: Regular rate General: mild distress Lungs: Other (mildly decreased breath sounds) Assessment Assessment Problems Medical Problems: (1) Khpyv-gi-secutid kidney injury Status: Acute (2) Dyspnea Status: Acute 1. Shortness of breath. History of COPD. Patient continues on pulmonary medications. Continues to feel better. 2. Acute kidney injury on chronic kidney disease. Being followed by the renal service. 3. Elevated BNP at 7222. No significant elevation in troponin. No significant arrhythmias on telemetry. Echocardiogram shows intact LV systolic function. Would continue present treatment. 4. Hypertension. Improved. Comment Review of Relevant I have reviewed the following items karey (where applicable) has been applied. Labs Laboratory Tests Test 03/13/19 04:05 03/14/19 07:13 White Blood Count 5.1 x10^3/uL (4.0-11.0) 5.2 x10^3/uL (4.0-11.0) Red Blood Count 2.55 x10^6/uL (4.30-5.70) 2.79 x10^6/uL (4.30-5.70) Hemoglobin 7.8 g/dL (13.0-17.5) 8.5 g/dL (13.0-17.5) Hematocrit 23.0 % (39.0-53.0) 25.0 % (39.0-53.0) Mean Corpuscular Volume 90 fL (79-100) 90 fL (79-100) Mean Corpuscular Hemoglobin 31 pg (25-35) 31 pg (25-35) Mean Corpuscular Hemoglobin Concent 34 g/dL (31-37) 34 g/dL (31-37) Red Cell Distribution Width 15.6 % (11.5-14.5) 15.7 % (11.5-14.5) Platelet Count 141 x10^3/uL (140-400) 158 x10^3/uL (140-400) Neutrophils (%) (Auto) 61 % (31-73) Lymphocytes (%) (Auto) 22 % (24-48) Monocytes (%) (Auto) 9 % (0-9) Eosinophils (%) (Auto) 8 % (0-3) Basophils (%) (Auto) 0 % (0-3) Neutrophils # (Auto) 3.1 x10^3/uL (1.8-7.7) Lymphocytes # (Auto) 1.1 x10^3/uL (1.0-4.8) Monocytes # (Auto) 0.4 x10^3/uL (0.0-1.1) Eosinophils # (Auto) 0.4 x10^3/uL (0.0-0.7) Basophils # (Auto) 0.0 x10^3/uL (0.0-0.2) Sodium Level 140 mmol/L (136-145) 140 mmol/L (136-145) Potassium Level 3.7 mmol/L (3.5-5.1) 3.8 mmol/L (3.5-5.1) Chloride Level 107 mmol/L (98-107) 106 mmol/L (98-107) Carbon Dioxide Level 23 mmol/L (21-32) 22 mmol/L (21-32) Anion Gap 10 (6-14) 12 (6-14) Blood Urea Nitrogen 41 mg/dL (8-26) 39 mg/dL (8-26) Creatinine 4.1 mg/dL (0.7-1.3) 3.9 mg/dL (0.7-1.3) Estimated GFR (Cockcroft-Gault) 14.2 15.1 Glucose Level 83 mg/dL (70-99) 87 mg/dL (70-99) Calcium Level 7.9 mg/dL (8.5-10.1) 8.0 mg/dL (8.5-10.1) Phosphorus Level 3.8 mg/dL (2.6-4.7) Iron Level 26 ug/dL (65-175) Total Iron Binding Capacity 142 ug/dL (250-450) Iron Saturation 18 % (15-34) Ferritin 114 ng/mL (26-388) Prostate Specific Antigen 9.27 ng/mL (0.00-4.00) Laboratory Tests Test 03/14/19 07:13 White Blood Count 5.2 x10^3/uL (4.0-11.0) Red Blood Count 2.79 x10^6/uL (4.30-5.70) Hemoglobin 8.5 g/dL (13.0-17.5) Hematocrit 25.0 % (39.0-53.0) Mean Corpuscular Volume 90 fL (79-100) Mean Corpuscular Hemoglobin 31 pg (25-35) Mean Corpuscular Hemoglobin Concent 34 g/dL (31-37) Red Cell Distribution Width 15.7 % (11.5-14.5) Platelet Count 158 x10^3/uL (140-400) Sodium Level 140 mmol/L (136-145) Potassium Level 3.8 mmol/L (3.5-5.1) Chloride Level 106 mmol/L (98-107) Carbon Dioxide Level 22 mmol/L (21-32) Anion Gap 12 (6-14) Blood Urea Nitrogen 39 mg/dL (8-26) Creatinine 3.9 mg/dL (0.7-1.3) Estimated GFR (Cockcroft-Gault) 15.1 Glucose Level 87 mg/dL (70-99) Calcium Level 8.0 mg/dL (8.5-10.1) Ferritin 114 ng/mL (26-388) Prostate Specific Antigen 9.27 ng/mL (0.00-4.00) Microbiology 03/11/19 Blood Culture - Preliminary, Resulted NO GROWTH AFTER 3 DAYS Medications Current Medications Albuterol/ Ipratropium (Duoneb) 3 ml 1X ONCE NEB Last administered on at 13:28; Start 03/11/19 at 13:15; Stop 03/11/19 at 13:27; Status DC Sodium Chloride 1,000 ml @ 125 mls/hr Q8H IV Last administered on 03/11/19at 19:09; Start 03/11/19 at 16:29; Stop 03/12/19 at 11:59; Status DC Albuterol/ Ipratropium (Duoneb) 3 ml RTQID NEB Last administered on 03/12/19at 12:07; Start 03/11/19 at 20:00; Stop 03/12/19 at 14:32; Status DC Amlodipine Besylate (Norvasc) 5 mg BID PO Last administered on 03/14/19 08:19; Start 03/11/19 at 22:30 Bupropion HCl (Wellbutrin Xl) 150 mg DAILY PO Last administered on 03/14/19 08:17; Start 03/12/19 at 09:00 Carvedilol (Coreg) 6.25 mg BIDWMEALS PO Last administered on 03/14/19 08:19; Start 03/12/19 at 08:00 Pantoprazole Sodium (Protonix) 40 mg BIDAC PO Last administered on 03/14/19 08:17; Start 03/12/19 at 07:30 Rivaroxaban (Xarelto) 15 mg QHS PO Last administered on 03/13/19 19:52; Start 03/11/19 at 22:30 Simvastatin (Zocor) 20 mg HS PO Last administered on 03/13/19 19:50; Start 03/11/19 at 22:30 Tamsulosin HCl (Flomax) 0.4 mg BID PO Last administered on 03/14/19 08:17; Start 03/11/19 at 22:30 Non-Formulary Medication (Albuterol Sulfate (Ventolin Hfa Inhaler)) 2 puff QID INH ; Start 03/12/19 at 09:00; Status UNV Non-Formulary Medication (Budesonide/ Formoterol Fumarate (Symbicort 160-4.5 Mcg Inhaler)) 2 puff BID IH ; Start 03/12/19 at 09:00; Status UNV Diphenhydramine HCl (Benadryl) 50 mg PRN Q6HRS PRN PO ITCHING; Start 03/11/19 at 22:30 Multivitamins (Thera M Plus) 1 tab DAILY PO Last administered on 03/14/19 08:16; Start 03/12/19 at 09:00 Budesonide (Pulmicort) 0.5 mg RTBID NEB Last administered on 03/14/19 08:45; Start 03/12/19 at 08:00 Furosemide (Lasix) 40 mg 1X ONCE IVP Last administered on 03/12/19 12:15; Start 03/12/19 at 12:00; Stop 03/12/19 at 12:03; Status DC Potassium Chloride (Klor-Con) 20 meq 1X ONCE PO Last administered on 03/12/19at 12:16; Start 03/12/19 at 12:00; Stop 03/12/19 at 12:03; Status DC Furosemide (Lasix) 40 mg BID92 PO Last administered on 03/14/19at 13:41; Start 03/12/19 at 14:00 Hydralazine HCl (Apresoline Inj) 10 mg PRN Q4HRS PRN IVP ELEVATED BP, SEE COMMENTS Last administered on 03/14/19 06:13; Start 03/12/19 at 12:00 Albuterol Sulfate (Ventolin Neb Soln) 2.5 mg RTQID NEB Last administered on 03/14/19at 11:47; Start 03/12/19 at 16:00 Alprazolam (Xanax) 0.5 mg PRN Q8HRS PRN PO ANXIETY / AGITATION Last administered on 03/13/19at 19:50; Start 03/12/19 at 19:30 Darbepoetin Guillermo (ARANESP for DIALYSIS PTS) 60 mcg Torres SQ Last administered on 03/13/19at 19:58; Start 03/13/19 at 21:00 Polysaccharide Iron Complex (Niferex 150) 150 mg DAILY PO Last administered on 03/14/19 08:16; Start 03/13/19 at 14:00 Active Scripts Active Reported Xarelto (Rivaroxaban) 15 Mg Tablet 15 Mg PO QHS Flomax (Tamsulosin Hcl) 0.4 Mg Cap.er.24h 0.4 Mg PO BID Simvastatin 20 Mg Tablet 20 Mg PO HS Pantoprazole Sodium (Pantoprazole Sodium) 40 Mg Tablet.dr 40 Mg PO BID Multi Vitamin Daily (Multivitamin) 1 Each Tablet 1 Tab PO DAILY 30 Days Diphenhydramine Hcl 50 Mg Capsule 50 Mg PO Q6HRS PRN Carvedilol (Carvedilol) 6.25 Mg Tablet 6.25 Mg PO BIDWMEALS Bupropion Xl (Bupropion Hcl) 150 Mg Tab.er.24h 150 Mg PO QAM Symbicort 160-4.5 Mcg Inhaler (Budesonide/Formoterol Fumarate) 10.2 Gm Hfa.aer.ad 2 Puff IH BID Amlodipine Besylate 5 Mg Tablet 5 Mg PO BID Ventolin Hfa Inhaler (Albuterol Sulfate) 18 Gm Hfa.aer.ad 2 Puff INH QID Vitals/I & O Vital Sign - Last 24 Hours 03/13/19 03/13/19 03/13/19 03/13/19 16:45 19:22 19:52 20:00 Temp 98.8 98.8 Pulse 56 61 61 Resp 24 B/P (MAP) 155/49 162/52 (88) 162/52 Pulse Ox 96 O2 Delivery Room Air Room Air 03/13/19 03/13/19 03/14/19 03/14/19 20:42 23:54 03:15 06:13 Temp 97.7 98.3 97.7 98.3 Pulse 62 63 80 Resp 24 20 B/P (MAP) 117/54 (75) 176/70 (105) 176/67 Pulse Ox 95 96 94 O2 Delivery Room Air Room Air Room Air 03/14/19 03/14/19 03/14/19 03/14/19 06:44 08:00 08:19 08:19 Temp 97.8 97.8 Pulse 67 67 67 Resp 20 B/P (MAP) 171/58 (95) 171/58 171/58 Pulse Ox 97 O2 Delivery Nasal Cannula Room Air O2 Flow Rate 3.0 3.0 03/14/19 03/14/19 03/14/19 03/14/19 08:37 11:47 11:48 14:34 Temp 98.2 98.4 98.2 98.4 Pulse 80 51 Resp 18 18 B/P (MAP) 153/44 (80) 143/44 (77) Pulse Ox 97 98 99 98 O2 Delivery Room Air Room Air Room Air Room Air O2 Flow Rate 3.0 Intake and Output 03/13/19 03/13/19 03/14/19 15:00 23:00 07:00 Intake Total 300 ml 400 ml Output Total 1000 ml 950 ml Balance 300 ml -1000 ml -550 ml SANDRA JOHNSTON MD Mar 14, 2019 16:38
[2019-03-14 19:10] VITALS: BP 155/44
[2019-03-14] MEDS: ALPRAZolam 0.5 MG TABLET PO PRN (21:12)
[2019-03-14] MEDS: SIMVASTATIN 20 MG TABLET PO SCH (21:13)
[2019-03-14] MEDS: RIVAROXABAN 15 MG TABLET. PO SCH (21:13)
[2019-03-14 23:12] VITALS: BP 163/63
[2019-03-15 01:07] LABS: TOTAL SERUM CREATININE 3.98 mg/dL (0.76-1.27); UR PROTEIN 231.1 mg/dL (Not Estab.)
[2019-03-15 03:26] VITALS: BP 159/50
[2019-03-15 06:32] LABS: CALCIUM 7.7 mg/dL (8.5-10.1); CREATININE 3.9 mg/dL (0.7-1.3); GFR 15.1; POTASSIUM 3.6 mmol/L (3.5-5.1)
--- NOTE | 2019-03-15 07:14 | PDOC ---
PULMONARY PROGRESS NOTES Subjective PT NOT MORE SOA NO INCREASE COUGH Vitals Vital Signs Date Time Temp Pulse Resp B/P (MAP) Pulse Ox O2 Delivery O2 Flow Rate FiO2 03/15/19 03:26 98.0 56 20 159/50 (86) 96 Nasal Cannula 2.5 98.0 ROS: No Nausea, No Chest Pain, No Abdominal Pain, No Increase Cough General: Alert Lungs: Crackles Cardiovascular: S1, S2 Abdomen: Soft Neuro Exam: Alert Extremities: No Edema Skin: Warm Labs Laboratory Tests Test 03/14/19 07:13 03/14/19 15:00 03/15/19 03:43 White Blood Count 5.2 x10^3/uL (4.0-11.0) Red Blood Count 2.79 x10^6/uL (4.30-5.70) Hemoglobin 8.5 g/dL (13.0-17.5) Hematocrit 25.0 % (39.0-53.0) Mean Corpuscular Volume 90 fL (79-100) Mean Corpuscular Hemoglobin 31 pg (25-35) Mean Corpuscular Hemoglobin Concent 34 g/dL (31-37) Red Cell Distribution Width 15.7 % (11.5-14.5) Platelet Count 158 x10^3/uL (140-400) Sodium Level 140 mmol/L (136-145) 140 mmol/L (136-145) Potassium Level 3.8 mmol/L (3.5-5.1) 3.6 mmol/L (3.5-5.1) Chloride Level 106 mmol/L (98-107) 105 mmol/L (98-107) Carbon Dioxide Level 22 mmol/L (21-32) 23 mmol/L (21-32) Anion Gap 12 (6-14) 12 (6-14) Blood Urea Nitrogen 39 mg/dL (8-26) 41 mg/dL (8-26) Creatinine 3.9 mg/dL (0.7-1.3) 3.98 mg/dL (0.76-1.27) 3.9 mg/dL (0.7-1.3) Estimated GFR (Cockcroft-Gault) 15.1 15.1 Glucose Level 87 mg/dL (70-99) 85 mg/dL (70-99) Calcium Level 8.0 mg/dL (8.5-10.1) 7.7 mg/dL (8.5-10.1) Ferritin 114 ng/mL (26-388) Prostate Specific Antigen 9.27 ng/mL (0.00-4.00) Urine Protein 231.1 mg/dL (Not Estab.) Urine Creatinine mg/dL 50.0 mg/dL (Not Estab.) Urine Creatinine mg/24 hr 1200 mg/24 hr (3985-3961) Creatinine Clearance 24 Hour 21 mL/min (97-137) Urine Protein 24 Hr Calculated 5546 mg/24 hr (30-150) Estimated GFR (Non- 14 (>59) EGFR 16 (>59) Laboratory Tests Test 03/14/19 15:00 03/15/19 03:43 Urine Protein 231.1 mg/dL (Not Estab.) Urine Creatinine mg/dL 50.0 mg/dL (Not Estab.) Urine Creatinine mg/24 hr 1200 mg/24 hr (2803-4000) Creatinine Clearance 24 Hour 21 mL/min (97-137) Urine Protein 24 Hr Calculated 5546 mg/24 hr (30-150) Creatinine 3.98 mg/dL (0.76-1.27) 3.9 mg/dL (0.7-1.3) Estimated GFR (Non- 14 (>59) EGFR 16 (>59) Sodium Level 140 mmol/L (136-145) Potassium Level 3.6 mmol/L (3.5-5.1) Chloride Level 105 mmol/L (98-107) Carbon Dioxide Level 23 mmol/L (21-32) Anion Gap 12 (6-14) Blood Urea Nitrogen 41 mg/dL (8-26) Estimated GFR (Cockcroft-Gault) 15.1 Glucose Level 85 mg/dL (70-99) Calcium Level 7.7 mg/dL (8.5-10.1) Medications Active Scripts Medications Dose Route/Sig Max Daily Dose Days Date Category Xarelto (Rivaroxaban) 15 Mg Tablet 15 Mg PO QHS 03/11/19 Reported Flomax (Tamsulosin Hcl) 0.4 Mg Cap.er.24h 0.4 Mg PO BID 03/11/19 Reported Simvastatin 20 Mg Tablet 20 Mg PO HS 03/11/19 Reported Pantoprazole Sodium (Pantoprazole Sodium) 40 Mg Tablet.dr 40 Mg PO BID 03/11/19 Reported Multi Vitamin Daily (Multivitamin) 1 Each Tablet 1 Tab PO DAILY 30 03/11/19 Reported Diphenhydramine Hcl 50 Mg Capsule 50 Mg PO Q6HRS PRN 03/11/19 Reported Carvedilol (Carvedilol) 6.25 Mg Tablet 6.25 Mg PO BIDWMEALS 03/11/19 Reported Bupropion Xl (Bupropion Hcl) 150 Mg Tab.er.24h 150 Mg PO QAM 03/11/19 Reported Symbicort 160-4.5 Mcg Inhaler (Budesonide/Formoterol Fumarate) 10.2 Gm Hfa.aer.ad 2 Puff IH BID 03/11/19 Reported Amlodipine Besylate 5 Mg Tablet 5 Mg PO BID 03/11/19 Reported Ventolin Hfa Inhaler (Albuterol Sulfate) 18 Gm Hfa.aer.ad 2 Puff INH QID 03/11/19 Reported Impression . IMPRESSION: 1. Dyspnea secondary to volume overload with [id number] kidney failure, cannot rule out acute diastolic versus systolic congestive heart failure, chronic obstructive pulmonary disease. 2. Abnormal chest x-ray. 3. Chronic obstructive pulmonary disease. 4. Acute on chronic kidney disease. 5. Hypertension. 6. Paroxysmal atrial fibrillation. 7. Tobacco habituation. 8. 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 CT CHEST IMPRESSION: 1. Moderate bilateral effusions. 2. Bilateral lobe lower lobe atelectasis or infiltrates. 3. Small nodule along the fissure on the right, Fleischner Society guidelines recommend an optional one-year follow-up for I risk individuals. 4. Granulomatous ossifications. 5. Sclerotic or possibly blastic lesion T7 correlation with any history of prostate cancer would be of benefit. Plan . HOME FROM MY STANDPOINT [place] REPEAT CT IN 6 MONTHS WORK UP IN PROGRESS FOR T7 BONY LESION PER DR DE LA ROSA BONE SCAN RESULTS NOTED NOT DEFINITE 02 D/C SMOKING OUT PT SLEEP STUDY FAVIAN MORENO MD Mar 15, 2019 07:14
[2019-03-15 07:56] VITALS: BP 162/46
[2019-03-15] MEDS: ALBUTEROL SULFATE 2.5 MG/3 ML NEBU. NEB SCH ×2 (08:02→12:22)
[2019-03-15] MEDS: BUDESONIDE 0.5 MG/2 ML NEBU. NEB SCH (08:02)
[2019-03-15] MEDS: TAMSULOSIN 0.4 MG CAP.ER.24H. PO SCH (08:34)
[2019-03-15] MEDS: FUROSEMIDE 40 MG TABLET. PO SCH (08:34)
[2019-03-15] MEDS: IRON POLYSACCHARIDE COMPLEX 150 MG CAPSULE PO SCH (08:34)
[2019-03-15] MEDS: buPROPion XL 150 MG TAB.ER.24H. PO SCH (08:34)
[2019-03-15] MEDS: MULTIVITAMIN with MINERAL TABLET. PO SCH (08:34)
[2019-03-15] MEDS: PANTOPRAZOLE 40 MG TABLET.DR. PO SCH (08:34)
[2019-03-15] MEDS: CARVEDILOL 6.25 MG TABLET. PO SCH (08:35)
[2019-03-15] MEDS: amLODIPine BESYLATE 5 MG TABLET PO SCH (08:35)
--- NOTE | 2019-03-15 08:57 | PDOC ---
SUBJECTIVE Subjective S: feeling well, no pain at L5 for T7 O: Physical exam: Gen.: Well-nourished and well-developed, resting in bed Lungs: Breathing comfortably Psychiatric: Pleasant mood and affect Labs: PSA 9.27, SPEP negative for M sp, ferr 114, Fe sat 18, low TIBC, wbc 5.2, Hb 8.5, plt 158 Rads: bone scan 14 March showed indeterminate uptake at L5, consider cross- sectional imaging, heterogeneous spinal uptake without T7 localization, i ncreased uptake at left nasal bone (he has had trauma here multiple times in the past) Assessment and Plan: He is a 79-year-old man admitted with worsening renal failure and has a lesion at T7 T7 lesion: PSA 9.2, bone scan did not localize to T7, indeterminate L5, and heterogeneous spinal uptake, recommended lumbar spine cross-sectional imaging, we will likely consider a PET CT scan as an outpatient and have him follow-up with me History of prostate cancer: pet CT as an outpatient and follow-up with me to determine further recommendations Anemia: He is on Aranesp, hemoglobin remains greater than 7, ferritin adequate, iron sat less than 20, defer iron to nephrology as they are managing his XIOMARA at the moment Kidney failure: Per nephrology Pulmonary nodule and shortness of breath: Per pulmonary, effusions may need tapped if not related to heart failure? only seen on CT. Cardiology is involved as well History of a flutter: On Xarelto, may need to be held if considering biopsy h/o tobacco: He tells me he has quit this admit, I encouraged him to cont w/ cessation Dispo: per others to f/u w/ us as outpt Thank you kindly and please do not hesitate to call with questions. OBJECTIVE Vital Signs Vital Signs Date Time Temp Pulse Resp B/P (MAP) Pulse Ox O2 Delivery O2 Flow Rate FiO2 03/15/19 08:35 56 162/46 03/15/19 08:35 56 162/46 03/15/19 08:12 96 Room Air 03/15/19 08:10 96 Room Air 03/15/19 07:56 98.2 56 18 162/46 (84) 98 Nasal Cannula 2.5 98.2 03/15/19 03:26 98.0 56 20 159/50 (86) 96 Nasal Cannula 2.5 98.0 03/14/19 23:12 98.1 63 20 163/63 (96) 94 Room Air 98.1 03/14/19 21:13 52 155/44 03/14/19 19:20 95 Room Air 03/14/19 19:12 Room Air 03/14/19 19:10 98.1 52 18 155/44 (81) 96 Nasal Cannula 2.5 98.1 03/14/19 16:49 51 143/44 03/14/19 14:34 98.4 51 18 143/44 (77) 98 Room Air 98.4 03/14/19 11:48 99 Room Air 03/14/19 11:47 98.2 80 18 153/44 (80) 98 Room Air 98.2 I & O Intake and Output 03/15/19 06:59 Intake Total 1350 ml Output Total 1750 ml Balance -400 ml Intake Oral 1350 ml Output Urine Total 1750 ml COMMENT Lab Laboratory Tests Test 03/14/19 15:00 03/15/19 03:43 Urine Protein 231.1 mg/dL (Not Estab.) Urine Creatinine mg/dL 50.0 mg/dL (Not Estab.) Urine Creatinine mg/24 hr 1200 mg/24 hr (9185-7181) Creatinine Clearance 24 Hour 21 mL/min (97-137) Urine Protein 24 Hr Calculated 5546 mg/24 hr (30-150) Creatinine 3.98 mg/dL (0.76-1.27) 3.9 mg/dL (0.7-1.3) Estimated GFR (Non- 14 (>59) EGFR 16 (>59) Sodium Level 140 mmol/L (136-145) Potassium Level 3.6 mmol/L (3.5-5.1) Chloride Level 105 mmol/L (98-107) Carbon Dioxide Level 23 mmol/L (21-32) Anion Gap 12 (6-14) Blood Urea Nitrogen 41 mg/dL (8-26) Estimated GFR (Cockcroft-Gault) 15.1 Glucose Level 85 mg/dL (70-99) Calcium Level 7.7 mg/dL (8.5-10.1) YANI DE LA ROSA MD Mar 15, 2019 08:57
--- NOTE | 2019-03-15 09:38 | PDOC ---
PROGRESS NOTES History of Present Illness History of Present Illness DISCHARGE DX Acute on chronic renal failure secondary to volume overload, anemia, hypocalcemia, azotemia. chronic renal failure. stage 4-5 hypoxic episode resolved Left medial basilar retrocardiac atelectasis or possibly infiltrate. PROTEINURIA Moderate bilateral effusions. Bilateral lobe lower lobe atelectasis or infiltrates. Small nodule along the fissure on the right, Fleischner Society guidelines recommend an optional one-year follow-up for I risk individuals. Granulomatous ossifications. Sclerotic or possibly blastic lesion T7 correlation with any history of prostate cancer would be of benefit. Tracer uptake in the spine is heterogeneous. No definite increased tracer uptake localizes to the T7 vertebral body. Suggest correlation withPSA. ECHO 03/14The left ventricular systolic function is low normal. The ejection fraction is estimated at 50% mild to moderate mitral regurgitatio mild to moderate tricuspid regurgitation. PA pressure was estimated at 44 mmHg. C/W MOD PULM HTN probable obstructive sleep apnea-hypopnea syndrome. admit Consult Nephrology, consult Cardiology, cardiac monitoring. echocardiogram, home meds, DVT prophylaxis, full code. pulm consult IS ONCOLOGY CONSULT, DR DE LA ROSA FOLLOWING 24 Urine collection on - ordered by Dr Willett SEE NEPHROLOGY NEXT WEEK DR CARMONA 34 min pt exam, chart review D/C PLANNING , pt exam, > 50% of time spent with exam, chart review, pt care coordination Vitals Vitals Vital Signs Date Time Temp Pulse Resp B/P (MAP) Pulse Ox O2 Delivery O2 Flow Rate FiO2 03/15/19 08:35 56 162/46 03/15/19 08:12 96 Room Air 03/15/19 07:56 98.2 18 2.5 98.2 Physical Exam Physical Exam GENERAL: He is alert, cooperative. His IS present, HEENT: Normal cephalic atraumatic, external auditory canals are patent EYES: Extraocular muscles are intact, pupils are equally round and reactive to light and accommodation MUSKULOSKELETAL: Well developed, well nourished, good range of motion ENDOCRINE: No thyromegaly was palpated LYMPHATICS: No cervical chain or axillary nodes were noted HEMATOPOIETIC: No bruising NECK: Supple, no JVD, no thyromegaly was noted. LUNGS: Bibasilar crackles, but they are fine. He has a slight wheeze on the right. HEART: Distant S1, S2 with a soft S3. ABDOMEN: Soft. EXTREMITIES: Trace edema. NEUROLOGIC: Normal speech, normal tone. A & O x3, moves all extremities, no obvious focal deficits. PSYCHIATRIC: He is a little anxious. SKIN: No ulcerations or rashes, good skin turgor, no jaundice. VASCULAR: Good capillary refill, neurovascular bundle appears to be intact. General: Alert, Oriented X3, Cooperative, No acute distress Heart: Regular rate Lungs: Clear, Crackles Abdomen: Normal bowel sounds Extremities: No cyanosis Skin: No significant lesion Labs LABS Nuclear medicine whole body bone scan History: Prostate cancer diagnosed 4 years ago. T7 blastic lesion. Comparison: CT chest without contrast March 13, 2019. Technique: Examination performed after intravenous administration of 25.1 mCi Technetium 99m MDP. Images of the whole body were obtained in the anterior and posterior projections. Findings: Tracer uptake in the spine is heterogeneous. No definite increased tracer uptake localizing to the T7 sclerotic lesion is identified. This does not exclude osteoblastic metastasis. Recommend correlation with PSA. There is increased tracer uptake localizing to the L5 vertebral body on the right. There is increased tracer uptake in the region of the left nasal bone. This uptake is nonspecific and could be due to a sclerotic lesion or fracture or paranasal sinus disease or a meningioma. Consider correlation with CT. Increased tracer uptake of the left wrist may be degenerative. Increased tracer uptake bilaterally the shoulders is probably degenerative. Tracer distribution in the soft tissues appears normal. Impression: 1. Increased tracer uptake of the L5 vertebral body is indeterminate. Suggest correlation with cross-sectional imaging. 2. Tracer uptake in the spine is heterogeneous. No definite increased tracer uptake localizes to the T7 vertebral body. Suggest correlation with PSA. 3. Increased tracer uptake in the region of the left nasal bone. Electronically signed by: Zana Loera MD (03/14/2019 4:11 PM) [facility] DICTATED and SIGNED BY: ZANA LOERA MD DATE: 03/14/19 1617 Laboratory Tests Test 03/14/19 15:00 03/15/19 03:43 Urine Protein 231.1 mg/dL (Not Estab.) Urine Creatinine mg/dL 50.0 mg/dL (Not Estab.) Urine Creatinine mg/24 hr 1200 mg/24 hr (6061-1940) Creatinine Clearance 24 Hour 21 mL/min (97-137) Urine Protein 24 Hr Calculated 5546 mg/24 hr (30-150) Creatinine 3.98 mg/dL (0.76-1.27) 3.9 mg/dL (0.7-1.3) Estimated GFR (Non- 14 (>59) EGFR 16 (>59) Sodium Level 140 mmol/L (136-145) Potassium Level 3.6 mmol/L (3.5-5.1) Chloride Level 105 mmol/L (98-107) Carbon Dioxide Level 23 mmol/L (21-32) Anion Gap 12 (6-14) Blood Urea Nitrogen 41 mg/dL (8-26) Estimated GFR (Cockcroft-Gault) 15.1 Glucose Level 85 mg/dL (70-99) Calcium Level 7.7 mg/dL (8.5-10.1) Assessment and Plan Assessmemt and Plan Problems Medical Problems: (1) [id number] kidney injury Status: Acute (2) Dyspnea Status: Acute Comment Review of Relevant I have reviewed the following items karey (where applicable) has been applied. Labs Laboratory Tests Test 03/14/19 07:13 03/14/19 15:00 03/15/19 03:43 White Blood Count 5.2 x10^3/uL (4.0-11.0) Red Blood Count 2.79 x10^6/uL (4.30-5.70) Hemoglobin 8.5 g/dL (13.0-17.5) Hematocrit 25.0 % (39.0-53.0) Mean Corpuscular Volume 90 fL (79-100) Mean Corpuscular Hemoglobin 31 pg (25-35) Mean Corpuscular Hemoglobin Concent 34 g/dL (31-37) Red Cell Distribution Width 15.7 % (11.5-14.5) Platelet Count 158 x10^3/uL (140-400) Sodium Level 140 mmol/L (136-145) 140 mmol/L (136-145) Potassium Level 3.8 mmol/L (3.5-5.1) 3.6 mmol/L (3.5-5.1) Chloride Level 106 mmol/L (98-107) 105 mmol/L (98-107) Carbon Dioxide Level 22 mmol/L (21-32) 23 mmol/L (21-32) Anion Gap 12 (6-14) 12 (6-14) Blood Urea Nitrogen 39 mg/dL (8-26) 41 mg/dL (8-26) Creatinine 3.9 mg/dL (0.7-1.3) 3.98 mg/dL (0.76-1.27) 3.9 mg/dL (0.7-1.3) Estimated GFR (Cockcroft-Gault) 15.1 15.1 Glucose Level 87 mg/dL (70-99) 85 mg/dL (70-99) Calcium Level 8.0 mg/dL (8.5-10.1) 7.7 mg/dL (8.5-10.1) Ferritin 114 ng/mL (26-388) Prostate Specific Antigen 9.27 ng/mL (0.00-4.00) Urine Protein 231.1 mg/dL (Not Estab.) Urine Creatinine mg/dL 50.0 mg/dL (Not Estab.) Urine Creatinine mg/24 hr 1200 mg/24 hr (4561-3486) Creatinine Clearance 24 Hour 21 mL/min (97-137) Urine Protein 24 Hr Calculated 5546 mg/24 hr (30-150) Estimated GFR (Non- 14 (>59) EGFR 16 (>59) Laboratory Tests Test 03/14/19 15:00 03/15/19 03:43 Urine Protein 231.1 mg/dL (Not Estab.) Urine Creatinine mg/dL 50.0 mg/dL (Not Estab.) Urine Creatinine mg/24 hr 1200 mg/24 hr (0173-1451) Creatinine Clearance 24 Hour 21 mL/min (97-137) Urine Protein 24 Hr Calculated 5546 mg/24 hr (30-150) Creatinine 3.98 mg/dL (0.76-1.27) 3.9 mg/dL (0.7-1.3) Estimated GFR (Non- 14 (>59) EGFR 16 (>59) Sodium Level 140 mmol/L (136-145) Potassium Level 3.6 mmol/L (3.5-5.1) Chloride Level 105 mmol/L (98-107) Carbon Dioxide Level 23 mmol/L (21-32) Anion Gap 12 (6-14) Blood Urea Nitrogen 41 mg/dL (8-26) Estimated GFR (Cockcroft-Gault) 15.1 Glucose Level 85 mg/dL (70-99) Calcium Level 7.7 mg/dL (8.5-10.1) Microbiology 03/11/19 Blood Culture - Preliminary, Resulted NO GROWTH AFTER 3 DAYS Medications Current Medications Albuterol/ Ipratropium (Duoneb) 3 ml 1X ONCE NEB Last administered on 03/11/19 13:28; Start 03/11/19 at 13:15; Stop 03/11/19 at 13:27; Status DC Sodium Chloride 1,000 ml @ 125 mls/hr Q8H IV Last administered on 03/11/19at 19:09; Start 03/11/19 at 16:29; Stop 03/12/19 at 11:59; Status DC Albuterol/ Ipratropium (Duoneb) 3 ml RTQID NEB Last administered on 03/12/19at 12:07; Start 03/11/19 at 20:00; Stop 03/12/19 at 14:32; Status DC Amlodipine Besylate (Norvasc) 5 mg BID PO Last administered on 03/15/19at 08:35; Start 03/11/19 at 22:30 Bupropion HCl (Wellbutrin Xl) 150 mg DAILY PO Last administered on 03/15/19 08:34; Start 03/12/19 at 09:00 Carvedilol (Coreg) 6.25 mg BIDWMEALS PO Last administered on 03/15/19 08:35; Start 03/12/19 at 08:00 Pantoprazole Sodium (Protonix) 40 mg BIDAC PO Last administered on 03/15/19at 08:34; Start 03/12/19 at 07:30 Rivaroxaban (Xarelto) 15 mg QHS PO Last administered on 03/14/19 21:13; St art 03/11/19 at 22:30 Simvastatin (Zocor) 20 mg HS PO Last administered on 03/14/19 21:13; Start 03/11/19 at 22:30 Tamsulosin HCl (Flomax) 0.4 mg BID PO Last administered on 03/15/19at 08:34; Start 03/11/19 at 22:30 Non-Formulary Medication (Albuterol Sulfate (Ventolin Hfa Inhaler)) 2 puff QID INH ; Start 03/12/19 at 09:00; Status UNV Non-Formulary Medication (Budesonide/ Formoterol Fumarate (Symbicort 160-4.5 Mcg Inhaler)) 2 puff BID IH ; Start 03/12/19 at 09:00; Status UNV Diphenhydramine HCl (Benadryl) 50 mg PRN Q6HRS PRN PO ITCHING; Start 03/11/19 at 22:30 Multivitamins (Thera M Plus) 1 tab DAILY PO Last administered on 03/15/19 08:34; Start 03/12/19 at 09:00 Budesonide (Pulmicort) 0.5 mg RTBID NEB Last administered on 03/15/19 08:02; Start 03/12/19 at 08:00 Furosemide (Lasix) 40 mg 1X ONCE IVP Last administered on 03/12/19 12:15; Start 03/12/19 at 12:00; Stop 03/12/19 at 12:03; Status DC Potassium Chloride (Klor-Con) 20 meq 1X ONCE PO Last administered on 03/12/19 12:16; Start 03/12/19 at 12:00; Stop 03/12/19 at 12:03; Status DC Furosemide (Lasix) 40 mg BID92 PO Last administered on 03/15/19 08:34; Start 03/12/19 at 14:00 Hydralazine HCl (Apresoline Inj) 10 mg PRN Q4HRS PRN IVP ELEVATED BP, SEE COMMENTS Last administered on 03/14/19 06:13; Start 03/12/19 at 12:00 Albuterol Sulfate (Ventolin Neb Soln) 2.5 mg RTQID NEB Last administered on 03/15/19 08:02; Start 03/12/19 at 16:00 Alprazolam (Xanax) 0.5 mg PRN Q8HRS PRN PO ANXIETY / AGITATION Last administered on 03/14/19 21:12; Start 03/12/19 at 19:30 Darbepoetin Guillermo (ARANESP for DIALYSIS PTS) 60 mcg Torres SQ Last administered on 03/13/19 19:58; Start 03/13/19 at 21:00 Polysaccharide Iron Complex (Niferex 150) 150 mg DAILY PO Last administered on 12/17/19at 08:34; Start 03/13/19 at 14:00 Active Scripts Active Reported Xarelto (Rivaroxaban) 15 Mg Tablet 15 Mg PO QHS Flomax (Tamsulosin Hcl) 0.4 Mg Cap.er.24h 0.4 Mg PO BID Simvastatin 20 Mg Tablet 20 Mg PO HS Pantoprazole Sodium (Pantoprazole Sodium) 40 Mg Tablet.dr 40 Mg PO BID Multi Vitamin Daily (Multivitamin) 1 Each Tablet 1 Tab PO DAILY 30 Days Diphenhydramine Hcl 50 Mg Capsule 50 Mg PO Q6HRS PRN Carvedilol (Carvedilol) 6.25 Mg Tablet 6.25 Mg PO BIDWMEALS Bupropion Xl (Bupropion Hcl) 150 Mg Tab.er.24h 150 Mg PO QAM Symbicort 160-4.5 Mcg Inhaler (Budesonide/Formoterol Fumarate) 10.2 Gm Hfa.aer .ad 2 Puff IH BID Amlodipine Besylate 5 Mg Tablet 5 Mg PO BID Ventolin Hfa Inhaler (Albuterol Sulfate) 18 Gm Hfa.aer.ad 2 Puff INH QID Vitals/I & O Vital Sign - Last 24 Hours 03/14/19 03/14/19 03/14/19 03/14/19 11:47 11:48 14:34 16:49 Temp 98.2 98.4 98.2 98.4 Pulse 80 51 51 Resp 18 18 B/P (MAP) 153/44 (80) 143/44 (77) 143/44 Pulse Ox 98 99 98 O2 Delivery Room Air Room Air Room Air 03/14/19 03/14/19 03/14/19 03/14/19 19:10 19:12 19:20 21:13 Temp 98.1 98.1 Pulse 52 52 Resp 18 B/P (MAP) 155/44 (81) 155/44 Pulse Ox 96 95 O2 Delivery Nasal Cannula Room Air Room Air O2 Flow Rate 2.5 03/14/19 03/15/19 03/15/19 03/15/19 23:12 03:26 07:56 08:10 Temp 98.1 98.0 98.2 98.1 98.0 98.2 Pulse 63 56 56 Resp 20 20 18 B/P (MAP) 163/63 (96) 159/50 (86) 162/46 (84) Pulse Ox 94 96 98 96 O2 Delivery Room Air Nasal Cannula Nasal Cannula Room Air O2 Flow Rate 2.5 2.5 03/15/19 03/15/19 03/15/19 08:12 08:35 08:35 Pulse 56 56 B/P (MAP) 162/46 162/46 Pulse Ox 96 O2 Delivery Room Air Intake and Output 03/14/19 03/14/19 03/15/19 15:00 23:00 07:00 Intake Total 660 ml 540 ml 150 ml Output Total 450 ml 450 ml 850 ml Balance 210 ml 90 ml -700 ml TANVIR CARRASCO MD Mar 15, 2019 09:38
--- NOTE | 2019-03-15 10:23 | PDOC ---
SUBJECTIVE ROS No complaints- NoN/V. good appetite OBJECTIVE Vital Signs Vital Signs Date Time Temp Pulse Resp B/P (MAP) Pulse Ox O2 Delivery O2 Flow Rate FiO2 03/15/19 08:35 56 162/46 03/15/19 08:12 96 Room Air 03/15/19 07:56 98.2 18 2.5 98.2 I & 0 Intake and Output 03/15/19 07:00 Intake Total 1350 ml Output Total 1750 ml Balance -400 ml Intake Oral 1350 ml Output Urine Total 1750 ml PHYSICAL EXAM Physical Exam Gen.: no acute distress, sitting in chair HEENT: mucous membranes moist, head normocephalic atraumatic Neck: Supple, Lungs: Breathing comfortably w/o respiratory distress, CTA Abdomen: Soft, nontender, nondistended Extremities: edema L trace to 1+ >R trace - chronic Skin: No obvious rashes or skin breakdown Neuro: Alert and oriented 3 Psych: Pleasant mood and affect No ramsey DIAGNOSIS/ASSESSMENT Assessment & Plan CKD stage 4 - baseline stage 3/4 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 [facility] Cl by 24 urine is 21 Clinically no Uremic symptoms or signs, they want to switch as [facility] and [facility] far for them Discussed renal function, Uremic symptoms, options of [employer] Would like to wait as asymptomatic, will schedule for CV visit with us Anemia- was on po Fe and PENNIE Fe dced - not sure the reason Defer to Hem/onc for pennie as well HTN- antihypertensives Edema- Chronic , stable Dyspnea- None at rest CHF- per cardiology, currently appears to be compensated On lasix BID T7 lesion:Onc following History of prostate cancer: Concern is for possible metastatic bony disease, Bone scan pending History of a flutter: On Xarelto Moderate bilateral effusions- On CT scan COMMENT/RELEVANT DATA Meds Current Medications Medications (Trade) Dose Ordered Sig/Diane Start Time Stop Time Status Last Admin Dose Admin Albuterol Sulfate (Ventolin Neb Soln) 2.5 mg RTQID 03/12/19 16:00 03/15/19 08:02 2.5 MG Albuterol/ Ipratropium (Duoneb) 3 ml RTQID 03/11/19 20:00 03/12/19 14:32 DC 03/12/19 12:07 3 ML Alprazolam (Xanax) 0.5 mg PRN Q8HRS PRN 03/12/19 19:30 03/14/19 21:12 0.5 MG Amlodipine Besylate (Norvasc) 5 mg BID 03/11/19 22:30 03/15/19 08:35 5 MG Budesonide (Pulmicort) 0.5 mg RTBID 03/12/19 08:00 03/15/19 08:02 0.5 MG Bupropion HCl (Wellbutrin Xl) 150 mg DAILY 03/12/19 09:00 03/15/19 08:34 150 MG Carvedilol (Coreg) 6.25 mg BIDWMEALS 03/12/19 08:00 03/15/19 08:35 6.25 MG Darbepoetin Guillermo (ARANESP for DIALYSIS PTS) 60 mcg Torres 03/13/19 21:00 03/13/19 19:58 60 MCG Diphenhydramine HCl (Benadryl) 50 mg PRN Q6HRS PRN 03/11/19 22:30 Furosemide (Lasix) 40 mg BID92 03/12/19 14:00 03/15/19 08:34 40 MG Hydralazine HCl (Apresoline Inj) 10 mg PRN Q4HRS PRN 03/12/19 12:00 03/14/19 06:13 10 MG Multivitamins (Thera M Plus) 1 tab DAILY 03/12/19 09:00 03/15/19 08:34 1 TAB Non-Formulary Medication (Albuterol Sulfate (Ventolin Hfa Inhaler)) 2 puff QID 03/12/19 09:00 UNV Non-Formulary Medication (Budesonide/ Formoterol Fumarate (Symbicort 160-4.5 Mcg Inhaler)) 2 puff BID 03/12/19 09:00 UNV Pantoprazole Sodium (Protonix) 40 mg BIDAC 03/12/19 07:30 03/15/19 08:34 40 MG Polysaccharide Iron Complex (Niferex 150) 150 mg DAILY 03/13/19 14:00 03/15/19 08:34 150 MG Potassium Chloride (Klor-Con) 20 meq 1X ONCE 03/12/19 12:00 03/12/19 12:03 DC 03/12/19 12:16 20 MEQ Rivaroxaban (Xarelto) 15 mg QHS 03/11/19 22:30 03/14/19 21:13 15 MG Simvastatin (Zocor) 20 mg HS 03/11/19 22:30 03/14/19 21:13 20 MG Sodium Chloride 1,000 ml @ 125 mls/hr Q8H 03/11/19 16:29 03/12/19 11:59 DC 03/11/19 19:09 125 MLS/HR Tamsulosin HCl (Flomax) 0.4 mg BID 03/11/19 22:30 03/15/19 08:34 0.4 MG Lab Laboratory Tests Test 03/14/19 15:00 03/15/19 03:43 Urine Protein 231.1 mg/dL (Not Estab.) Urine Creatinine mg/dL 50.0 mg/dL (Not Estab.) Urine Creatinine mg/24 hr 1200 mg/24 hr (0465-7410) Creatinine Clearance 24 Hour 21 mL/min (97-137) Urine Protein 24 Hr Calculated 5546 mg/24 hr (30-150) Creatinine 3.98 mg/dL (0.76-1.27) 3.9 mg/dL (0.7-1.3) Estimated GFR (Non- 14 (>59) EGFR 16 (>59) Sodium Level 140 mmol/L (136-145) Potassium Level 3.6 mmol/L (3.5-5.1) Chloride Level 105 mmol/L (98-107) Carbon Dioxide Level 23 mmol/L (21-32) Anion Gap 12 (6-14) Blood Urea Nitrogen 41 mg/dL (8-26) Estimated GFR (Cockcroft-Gault) 15.1 Glucose Level 85 mg/dL (70-99) Calcium Level 7.7 mg/dL (8.5-10.1) Results All relevant outside records, renal labs, imaging studies, telemetry/EKG's were reviewed. JEWEL CARMONA MD Mar 15, 2019 10:23
[2019-03-15 11:36] VITALS: BP 156/47
--- NOTE | 2019-03-15 11:47 | PDOC3 ---
Discharge Summary Date of Admission: Mar 11, 2019 Date of Discharge: Mar 15, 2019 Follow-Up: 3-5 days Admitting Diagnosis comment: DISCHARGE DX Acute on chronic renal failure secondary to volume overload, anemia, hypocalcemia, azotemia. chronic renal failure. stage 4-5 hypoxic episode resolved Left medial basilar retrocardiac atelectasis or possibly infiltrate. PROTEINURIA Moderate bilateral effusions. Bilateral lobe lower lobe atelectasis or infiltrates. Small nodule along the fissure on the right, Fleischner Society guidelines recommend an optional one-year follow-up for I risk individuals. Granulomatous ossifications. Sclerotic or possibly blastic lesion T7 correlation with any history of prostate cancer would be of benefit. Tracer uptake in the spine is heterogeneous. No definite increased tracer uptake localizes to the T7 vertebral body. Suggest correlation withPSA. ECHO 03/14The left ventricular systolic function is low normal. The ejection fraction is estimated at 50% mild to moderate mitral regurgitatio mild to moderate tricuspid regurgitation. PA pressure was estimated at 44 mmHg. C/W MOD PULM HTN probable obstructive sleep apnea-hypopnea syndrome. admit Consult Nephrology, consult Cardiology, cardiac monitoring. echocardiogram, home meds, DVT prophylaxis, full code. pulm consult IS ONCOLOGY CONSULT, DR DE LA ROSA FOLLOWING 24 Urine collection on - ordered by Dr Willett SEE NEPHROLOGY NEXT WEEK DR CARMONA, D/C TODAY 03/15 34 min pt exam, chart review D/C PLANNING , pt exam, > 50% of time spent with exam, chart review, pt care coordination Vitals Vitals Vital Signs Date Time Temp Pulse Resp B/P (MAP) Pulse Ox O2 Delivery O2 Flow Rate FiO2 03/15/19 08:35 56 162/46 03/15/19 08:12 96 Room Air 03/15/19 07:56 98.2 18 2.5 98.2 Physical Exam Physical Exam GENERAL: He is alert, cooperative. His IS present, HEENT: Normal cephalic atraumatic, external auditory canals are patent EYES: Extraocular muscles are intact, pupils are equally round and reactive to light and accommodation MUSKULOSKELETAL: Well developed, well nourished, good range of motion ENDOCRINE: No thyromegaly was palpated LYMPHATICS: No cervical chain or axillary nodes were noted HEMATOPOIETIC: No bruising NECK: Supple, no JVD, no thyromegaly was noted. LUNGS: Bibasilar crackles, but they are fine. He has a slight wheeze on the right. HEART: Distant S1, S2 with a soft S3. ABDOMEN: Soft. EXTREMITIES: Trace edema. NEUROLOGIC: Normal speech, normal tone. A & O x3, moves all extremities, no obvious focal deficits. PSYCHIATRIC: He is a little anxious. SKIN: No ulcerations or rashes, good skin turgor, no jaundice. VASCULAR: Good capillary refill, neurovascular bundle appears to be intact. General: Alert, Oriented X3, Cooperative, No acute distress Heart: Regular rate Lungs: Clear, Crackles Abdomen: Normal bowel sounds Extremities: No cyanosis Skin: No significant lesion Labs LABS Nuclear medicine whole body bone scan History: Prostate cancer diagnosed 4 years ago. T7 blastic lesion. Comparison: CT chest without contrast March 13, 2019. Technique: Examination performed after intravenous administration of 25.1 mCi Technetium 99m MDP. Images of the whole body were obtained in the anterior and posterior projections. Findings: Tracer uptake in the spine is heterogeneous. No definite increased tracer uptake localizing to the T7 sclerotic lesion is identified. This does not exclude osteoblastic metastasis. Recommend correlation with PSA. There is increased tracer uptake localizing to the L5 vertebral body on the right. There is increased tracer uptake in the region of the left nasal bone. This uptake is nonspecific and could be due to a sclerotic lesion or fracture or paranasal sinus disease or a meningioma. Consider correlation with CT. Increased tracer uptake of the left wrist may be degenerative. Increased tracer uptake bilaterally the shoulders is probably degenerative. Tracer distribution in the soft tissues appears normal. Impression: 1. Increased tracer uptake of the L5 vertebral body is indeterminate. Suggest correlation with cross-sectional imaging. 2. Tracer uptake in the spine is heterogeneous. No definite increased tracer uptake localizes to the T7 vertebral body. Suggest correlation with PSA. 3. Increased tracer uptake in the region of the left nasal bone. Electronically signed by: Zana Loera MD (03/14/2019 4:11 PM) [facility] FINAL DIAGNOSIS Problems Medical Problems: (1) Kwokl-my-jivpbna kidney injury Status: Acute (2) Dyspnea Status: Acute Brief Hospital Course Mr. Leal is a 79 old [sex] who presented with [ACUTE RENAL FAILURE, HYPOXIA ] CONDITION AT DISCHARGE: Improved Discharge Medications Current Medications Albuterol/ Ipratropium (Duoneb) 3 ml 1X ONCE NEB Last administered on 03/11/19at 13:28; Start 03/11/19 at 13:15; Stop 03/11/19 at 13:27; Status DC Sodium Chloride 1,000 ml @ 125 mls/hr Q8H IV Last administered on 03/11/19at 19:09; Start 03/11/19 at 16:29; Stop 03/12/19 at 11:59; Status DC Albuterol/ Ipratropium (Duoneb) 3 ml RTQID NEB Last administered on 03/12/19at 12:07; Start 03/11/19 at 20:00; Stop 03/12/19 at 14:32; Status DC Amlodipine Besylate (Norvasc) 5 mg BID PO Last administered on 03/15/19at 08:35; Start 03/11/19 at 22:30 Bupropion HCl (Wellbutrin Xl) 150 mg DAILY PO Last administered on 03/15/19at 08:34; Start 03/12/19 at 09:00 Carvedilol (Coreg) 6.25 mg BIDWMEALS PO Last administered on 03/15/19 08:35; Start 03/12/19 at 08:00 Pantoprazole Sodium (Protonix) 40 mg BIDAC PO Last administered on 03/15/19 08:34; Start 03/12/19 at 07:30 Rivaroxaban (Xarelto) 15 mg QHS PO Last administered on 03/14/19 21:13; Start 03/11/19 at 22:30 Simvastatin (Zocor) 20 mg HS PO Last administered on 03/14/19 21:13; Start 03/11/19 at 22:30 Tamsulosin HCl (Flomax) 0.4 mg BID PO Last administered on 03/15/19 08:34; Start 03/11/19 at 22:30 Non-Formulary Medication (Albuterol Sulfate (Ventolin Hfa Inhaler)) 2 puff QID INH ; Start 03/12/19 at 09:00; Status UNV Non-Formulary Medication (Budesonide/ Formoterol Fumarate (Symbicort 160-4.5 Mcg Inhaler)) 2 puff BID IH ; Start 03/12/19 at 09:00; Status UNV Diphenhydramine HCl (Benadryl) 50 mg PRN Q6HRS PRN PO ITCHING; Start 03/11/19 at 22:30 Multivitamins (Thera M Plus) 1 tab DAILY PO Last administered on 03/15/19 08:34; Start 03/12/19 at 09:00 Budesonide (Pulmicort) 0.5 mg RTBID NEB Last administered on 03/15/19 08:02; Start 03/12/19 at 08:00 Furosemide (Lasix) 40 mg 1X ONCE IVP Last administered on 03/12/19 12:15; Start 03/12/19 at 12:00; Stop 03/12/19 at 12:03; Status DC Potassium Chloride (Klor-Con) 20 meq 1X ONCE PO Last administered on 03/12/19 12:16; Start 03/12/19 at 12:00; Stop 03/12/19 at 12:03; Status DC Furosemide (Lasix) 40 mg BID92 PO Last administered on 03/15/19 08:34; Start 03/12/19 at 14:00 Hydralazine HCl (Apresoline Inj) 10 mg PRN Q4HRS PRN IVP ELEVATED BP, SEE COMMENTS Last administered on 03/14/19 06:13; Start 03/12/19 at 12:00 Albuterol Sulfate (Ventolin Neb Soln) 2.5 mg RTQID NEB Last administered on 03/15/19 08:02; Start 03/12/19 at 16:00 Alprazolam (Xanax) 0.5 mg PRN Q8HRS PRN PO ANXIETY / AGITATION Last administered on 03/14/19 21:12; Start 03/12/19 at 19:30 Darbepoetin Guillermo (ARANESP for DIALYSIS PTS) 60 mcg Torres SQ Last administered on 03/13/19 19:58; Start 03/13/19 at 21:00 Polysaccharide Iron Complex (Niferex 150) 150 mg DAILY PO Last administered on 03/15/19 08:34; Start 03/13/19 at 14:00 Active Scripts Active Reported Xarelto (Rivaroxaban) 15 Mg Tablet 15 Mg PO QHS Flomax (Tamsulosin Hcl) 0.4 Mg Cap.er.24h 0.4 Mg PO BID Simvastatin 20 Mg Tablet 20 Mg PO HS Pantoprazole Sodium (Pantoprazole Sodium) 40 Mg Tablet.dr 40 Mg PO BID Multi Vitamin Daily (Multivitamin) 1 Each Tablet 1 Tab PO DAILY 30 Days Diphenhydramine Hcl 50 Mg Capsule 50 Mg PO Q6HRS PRN Carvedilol (Carvedilol) 6.25 Mg Tablet 6.25 Mg PO BIDWMEALS Bupropion Xl (Bupropion Hcl) 150 Mg Tab.er.24h 150 Mg PO QAM Symbicort 160-4.5 Mcg Inhaler (Budesonide/Formoterol Fumarate) 10.2 Gm Hfa.aer.ad 2 Puff IH BID Amlodipine Besylate 5 Mg Tablet 5 Mg PO BID Ventolin Hfa Inhaler (Albuterol Sulfate) 18 Gm Hfa.aer.ad 2 Puff INH QID Vital Signs Vital Signs Date Time Temp Pulse Resp B/P (MAP) Pulse Ox O2 Delivery O2 Flow Rate FiO2 03/15/19 11:36 98.6 58 18 156/47 (83) 99 Nasal Cannula 2.5 98.6 Labs Laboratory Tests Test 03/14/19 07:13 03/14/19 15:00 03/15/19 03:43 White Blood Count 5.2 x10^3/uL (4.0-11.0) Red Blood Count 2.79 x10^6/uL (4.30-5.70) Hemoglobin 8.5 g/dL (13.0-17.5) Hematocrit 25.0 % (39.0-53.0) Mean Corpuscular Volume 90 fL (79-100) Mean Corpuscular Hemoglobin 31 pg (25-35) Mean Corpuscular Hemoglobin Concent 34 g/dL (31-37) Red Cell Distribution Width 15.7 % (11.5-14.5) Platelet Count 158 x10^3/uL (140-400) Sodium Level 140 mmol/L (136-145) 140 mmol/L (136-145) Potassium Level 3.8 mmol/L (3.5-5.1) 3.6 mmol/L (3.5-5.1) Chloride Level 106 mmol/L (98-107) 105 mmol/L (98-107) Carbon Dioxide Level 22 mmol/L (21-32) 23 mmol/L (21-32) Anion Gap 12 (6-14) 12 (6-14) Blood Urea Nitrogen 39 mg/dL (8-26) 41 mg/dL (8-26) Creatinine 3.9 mg/dL (0.7-1.3) 3.98 mg/dL (0.76-1.27) 3.9 mg/dL (0.7-1.3) Estimated GFR (Cockcroft-Gault) 15.1 15.1 Glucose Level 87 mg/dL (70-99) 85 mg/dL (70-99) Calcium Level 8.0 mg/dL (8.5-10.1) 7.7 mg/dL (8.5-10.1) Ferritin 114 ng/mL (26-388) Prostate Specific Antigen 9.27 ng/mL (0.00-4.00) Urine Protein 231.1 mg/dL (Not Estab.) Urine Creatinine mg/dL 50.0 mg/dL (Not Estab.) Urine Creatinine mg/24 hr 1200 mg/24 hr (2416-7769) Creatinine Clearance 24 Hour 21 mL/min (97-137) Urine Protein 24 Hr Calculated 5546 mg/24 hr (30-150) Estimated GFR (Non- 14 (>59) EGFR 16 (>59) Laboratory Tests Test 03/14/19 15:00 03/15/19 03:43 Urine Protein 231.1 mg/dL (Not Estab.) Urine Creatinine mg/dL 50.0 mg/dL (Not Estab.) Urine Creatinine mg/24 hr 1200 mg/24 hr (5649-7090) Creatinine Clearance 24 Hour 21 mL/min (97-137) Urine Protein 24 Hr Calculated 5546 mg/24 hr (30-150) Creatinine 3.98 mg/dL (0.76-1.27) 3.9 mg/dL (0.7-1.3) Estimated GFR (Non- 14 (>59) EGFR 16 (>59) Sodium Level 140 mmol/L (136-145) Potassium Level 3.6 mmol/L (3.5-5.1) Chloride Level 105 mmol/L (98-107) Carbon Dioxide Level 23 mmol/L (21-32) Anion Gap 12 (6-14) Blood Urea Nitrogen 41 mg/dL (8-26) Estimated GFR (Cockcroft-Gault) 15.1 Glucose Level 85 mg/dL (70-99) Calcium Level 7.7 mg/dL (8.5-10.1) Allergies Allergies Coded Allergies Type Severity Reaction Last Updated Verified regadenoson Allergy Severe Anaphylaxis 03/11/19 Yes Iodinated Contrast Media Allergy Intermediate 03/12/19 Yes Nitrofuran Analogues Allergy Intermediate rash 03/12/19 Yes dutasteride Allergy Intermediate rash 03/12/19 Yes finasteride Allergy Intermediate hives 03/12/19 Yes NSAIDS (Non-Steroidal Anti-Inflamma Adverse Reaction Intermediate 03/12/19 Yes Uncoded Allergies Type Severity Reaction Last Updated Verified diuretics Adverse Reaction Unknown 03/11/19 Disposition/Orders: D/C to Home TANVIR CARRASCO MD Mar 15, 2019 11:46
[2019-03-15] MEDS ORDERED: FURO40TA4 PO (11:49)
[2019-03-15] MEDS ORDERED: IRON150C11 PO (11:49)
--- NOTE | 2019-03-15 11:50 | DISCH ---
DISCHARGE INSTRUCTIONS Condition on Discharge Condition on Discharge: Stable Activity After Discharge Activity Instructions for Disc: Activity as tolerated Lifting Instructions after Dis: No heavy lifting, No pulling or pushing Driving Instructions after Dis: Do not drive Diet after Discharge Diet after Discharge: Low Protein Liquid Texture: Thin Liquid Checks after Discharge Checks after discharge: Check blood press - daily Contacting the DR. after DC Call your doctor for: If your condition worsens TANVIR CARRASCO MD Mar 15, 2019 11:50
--- NOTE | 2019-03-15 13:28 | PDOC ---
CARDIO Progress Notes Date and Time Date of Service 03/15/2019 Time of Evaluation 1220 Subjective Subjective: No Chest Pain, No shortness of breath, No Palpitations Vitals Vitals Vital Signs Date Time Temp Pulse Resp B/P (MAP) Pulse Ox O2 Delivery O2 Flow Rate FiO2 03/15/19 12:23 Room Air 03/15/19 11:36 98.6 58 18 156/47 (83) 99 2.5 98.6 Weight Weight [ ] Input and Output Intake and Output Intake and Output 03/15/19 07:00 Intake Total 1350 ml Output Total 1750 ml Balance -400 ml Intake Oral 1350 ml Output Urine Total 1750 ml Laboratory Labs Laboratory Tests Test 03/14/19 15:00 03/15/19 03:43 Urine Protein 231.1 mg/dL (Not Estab.) Urine Creatinine mg/dL 50.0 mg/dL (Not Estab.) Urine Creatinine mg/24 hr 1200 mg/24 hr (0252-6888) Creatinine Clearance 24 Hour 21 mL/min (97-137) Urine Protein 24 Hr Calculated 5546 mg/24 hr (30-150) Creatinine 3.98 mg/dL (0.76-1.27) 3.9 mg/dL (0.7-1.3) Estimated GFR (Non- 14 (>59) EGFR 16 (>59) Sodium Level 140 mmol/L (136-145) Potassium Level 3.6 mmol/L (3.5-5.1) Chloride Level 105 mmol/L (98-107) Carbon Dioxide Level 23 mmol/L (21-32) Anion Gap 12 (6-14) Blood Urea Nitrogen 41 mg/dL (8-26) Estimated GFR (Cockcroft-Gault) 15.1 Glucose Level 85 mg/dL (70-99) Calcium Level 7.7 mg/dL (8.5-10.1) Microbiology Micro Microbiology 03/11/19 Blood Culture - Preliminary, Resulted NO GROWTH AFTER 3 DAYS Review of Systems Constitutional: yes: alert, oriented Ears/Nose/Throat: Yes: no symptom reported Eyes: Yes: no symptom reported Pulmonary: Yes dyspnea Cardiovascular: Yes edema Gastrointestional: Yes: no symptom reported Genitourinary: Yes: no symptom reported Musculoskeletal: Yes: no symptom reported Skin: Yes no symptom reported Psychiatric/Neurological: Yes: no symptom reported Endocrine: Yes: no symptom reported Physical Exam HEENT: Neck Supple W Full Motion Chest: Symmetric LUNGS: Other (basilar crackles) Heart: RRR (SR) Abdomen: Soft N/T Extremities: No Calf Tenderness Neurology: alert, oriented, follow commands Assessment Assessment 1. Dyspnea due to COPD and CHF 2. Severe KULDEEP 3. Acute on chronic diastolic CHF: compensated 4. Normocytic anemia: stable at 8.5 not requiring transfusion. likely from chronic disease, no obvious bleed. 5. Hx of PAflutter: he does have brief paroxysms otherwise maintaining SR. ` 6. Valvular insufficiency: mod TR with mild to mod MR 7. Hypertension: Controlled Recommendations 1. NO ACEI/ARB. Avoid nephrotoxic agents. nephrology following. Lasix therapy. 2. Continue with secondary prevention. CrCl at 21 OK with lower dose xarelto for stroke prevention measures. 3. Follow up in office as scheduled. AFSHAN BARRETT APRN Mar 15, 2019 13:27
--- NOTE | 2019-03-15 15:07 | NUR ---
Pt discharged to home. Discharge teaching and prescriptions given to pt and spouse. Pt has follow up appointments with Dr. Domingo in July, Dr. Bowers in Mar., Dr. Whatley, and Dr. Kirk. IV was removed with dressing applied. Pt take out by wheelchair with transportation provided by family.
== END 2019-03-15 14:55 | disposition home or self-care (01) | DRG 682 ==
LOC: ER 12:37 → 6 SOUTH 17:25
PROVIDERS: ADMIT Internal Medicine; ATTEND Internal Medicine
DX: N17.9 Acute kidney failure, unspecified (principal); I50.33 Acute on chronic diastolic (congestive) heart failure; J98.11 Atelectasis; I13.2 Hypertensive heart and chronic kidney disease with heart failure and with stage 5 chronic kidney disease, or end stage renal disease; F41.9 Anxiety disorder, unspecified; K21.9 Gastro-esophageal reflux disease without esophagitis; M19.90 Unspecified osteoarthritis, unspecified site; D64.9 Anemia, unspecified; N18.4 Chronic kidney disease, stage 4 (severe); I48.0 Paroxysmal atrial fibrillation; F40.240 Claustrophobia; E78.5 Hyperlipidemia, unspecified; F17.210 Nicotine dependence, cigarettes, uncomplicated; N18.5 Chronic kidney disease, stage 5; I07.1 Rheumatic tricuspid insufficiency; I27.20 Pulmonary hypertension, unspecified; E83.51 Hypocalcemia; G47.33 Obstructive sleep apnea (adult) (pediatric); D71 Functional disorders of polymorphonuclear neutrophils; N40.0 Benign prostatic hyperplasia without lower urinary tract symptoms; R09.02 Hypoxemia; Z79.01 Long term (current) use of anticoagulants; Z85.46 Personal history of malignant neoplasm of prostate; Z87.19 Personal history of other diseases of the digestive system; Z88.8 Allergy status to other drugs, medicaments and biological substances; Z91.041 Radiographic dye allergy status; Z80.0 Family history of malignant neoplasm of digestive organs; Z82.49 Family history of ischemic heart disease and other diseases of the circulatory system
CPT/HCPCS: 36415; 51702; 71045; 71250; 76770; 78306; 80048; 80053; 81001; 82575; 82728; 83540; 83550; 83605; 83880; 84100; 84156; 84166; 84484; 85025; 85027; 85045; 86334; 87040; 93005; 93306; 94640; 94760; A9503; G0103; G0238; J0360; J0882; J1940; J7030; J7613; J7620; J7626; 97110; 97116; 99285-25; G0378

== ENCOUNTER → 2019-04-08 | Outpatient (CLI) | payer MEDICARE, BC ==
[2019-03-15 11:36] VITALS: BP 156/47
[~2019-04-08] MED LIST: AMLO5TAB10 PO; BUDE10.2 IH; BUPR150T6 PO; CARV6.2511 PO; DIPH50CA PO; FURO40TA4 PO; IRON150C11 PO; MULT-245 PO; PANT40TA77 PO; RIVA15TA PO; SIMV20TA18 PO; TAMS0.4C97 PO; VENTOLIN HFA18 GM INH
--- NOTE | 2019-04-08 17:07 | RAD ---
Examination: PET W CT SKULL TO MIDTHIGH History: Prostate cancer initial evaluation Comparison/Correlation: 03/14/2019 but a bone scan, 03/11/2019 CT chest without contrast FINDINGS: Net dose 16.1 mCi F-18 FDG was administered intravenously for purposes of PET/CT exam. Blood glucose level at the time of radiotracer administration was 89 mg/dL. Imaging was performed from the skull base to the proximal thighs. Hepatic reference uptake is SUV max of 2.1 . Uptake of radiotracer involving visualized head and neck is unremarkable. 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 Partial desiccation of the maxillary sinuses. Right lower paratracheal calcified lymph lymph node identified. No suspicious uptake involving the nonenlarged lymph nodes. Small bilateral pleural effusions are present. Extensive coronary artery calcification noted. Centrilobular emphysema. Small hiatal hernia. Gallbladder fossa is unremarkable. Prostate gland is enlarged measuring up to 5.9 cm transverse. No abnormal uptake involving the T7 vertebral bodies identified correspond with sclerotic finding on CT images. No other foci of abnormal uptake involving bony structures are intact. Left anterior low pelvic sidewall fluid collection bilobed fluid collection measuring up to approximately 4.1 cm transverse by 2.5 cm anteroposterior is present. Superior to this level within the omental fat, there is a small focus of intense uptake. Nodular appearance at this level with soft tissue nodularity measuring up to 1 cm diameter is present with SUV max of 4.3 present. This is best seen on axial image 54. Physiologic appearing radiotracer distribution within the bowel is noted. 3.1 cm diameter infrarenal abdominal aortic aneurysm is present. IMPRESSION: Small bilateral pleural effusions. No suspicious uptake at the T7 sclerotic lesion. This finding may possibly represent a bone island. No other suspicious sclerotic lesions. MRI of the thoracic spine without and with contrast may be performed for more definitive assessment if desired. Small focus of intense uptake corresponding to nodular soft tissue density within the omental fat at the anterior lower pelvic region. It is of indeterminate significance. This just superior to the level of a bilobed fluid collection which has no uptake. Infrarenal abdominal aortic aneurysm. PQRS Compliance Statement: One or more of the following individualized dose reduction techniques were utilized for this examination: 1. Automated exposure control 2. Adjustment of the mA and/or kV according to patient size 3. Use of iterative reconstruction technique Electronically signed by: Luke Laguna MD (04/08/2019 5:04 PM) [facility]
== END | disposition home or self-care (01) ==
LOC: PETSC 08:11
PROVIDERS: ATTEND Internal Medicine Hematology & Oncology
DX: C61 Malignant neoplasm of prostate (principal); J43.2 Centrilobular emphysema; J90 Pleural effusion, not elsewhere classified; I25.10 Atherosclerotic heart disease of native coronary artery without angina pectoris; I71.4 Abdominal aortic aneurysm, without rupture; M89.9 Disorder of bone, unspecified
CPT/HCPCS: 78815; A9552

== ENCOUNTER 2019-06-07 05:44 | Day surgery (SDC) | payer MEDICARE, BC ==
[~2019-06-07] VITALS: Ht 182.9 cm; Wt 84.4 kg
[~2019-06-07 05:44] MED LIST changes: +ALPR0.5T PO; +DIPH25CA58 PO
[2019-06-07] MEDS ORDERED: HEPARIN SODIUM 5,000 UNIT in IV NORMAL SALINE 500ML BAG 500 ML IRR ONE (06:00)
[2019-06-07] MEDS ORDERED: fentaNYL PF VIAL 100 MCG/2 ML VIAL IV PRN ×2 (07:00)
[2019-06-07] MEDS ORDERED: ONDANSETRON PF 4 MG/2 ML VIAL. IV PRN (07:00)
[2019-06-07] MEDS ORDERED: MORPHINE SULFATE 2 MG/ML VIAL. IV PRN (07:00)
[2019-06-07] MEDS ORDERED: HYDROmorphone 2 MG/ML VIAL IV PRN (07:00)
[2019-06-07] MEDS ORDERED: IV NORMAL SALINE 1000ML BAG 1,000 ML IV ONE (07:00)
[2019-06-07] MEDS ORDERED: PROCHLORPERAZINE 10 MG/2 ML VIAL. IV PRN (07:00)
[2019-06-07] MEDS ORDERED: IV RINGERS,LACTATED 1000ML 1,000 ML IV SCH (07:00)
[2019-06-07] MEDS ORDERED: LIDOCAINE 1% PF 2 ML VIAL. ID PRN (07:00)
[2019-06-07 07:03] LABS: BASO % 1 % (0-3); EOS # 0.6 x10^3/uL (0.0-0.7); EOS % 12 % (0-3); HEMATOCRIT 28.2 % (39.0-53.0); HEMOGLOBIN 9.6 g/dL (13.0-17.5); LYMPH # 0.8 x10^3/uL (1.0-4.8); LYMPH % 17 % (24-48); MEAN CORPUSCULAR HEMOGLOBIN 31 pg (25-35); MEAN CORPUSCULAR HGB CONC 34 g/dL (31-37); MEAN CORPUSCULAR VOLUME 92 fL (79-100); MONO # 0.5 x10^3/uL (0.0-1.1); MONO % 10 % (0-9); NEUT % 61 % (31-73); PLATELET COUNT 130 x10^3/uL (140-400); RED BLOOD COUNT 3.06 x10^6/uL (4.30-5.70); RED CELL DISTRIBUTION WIDTH 17.2 % (11.5-14.5); WHITE BLOOD COUNT 4.9 x10^3/uL (4.0-11.0)
[2019-06-07 07:14] LABS: CALCIUM 7.8 mg/dL (8.5-10.1); CREATININE 3.6 mg/dL (0.7-1.3); GFR 16.5; POTASSIUM 4.1 mmol/L (3.5-5.1)
[2019-06-07] MEDS ORDERED: ONDANSETRON PF 4 MG/2 ML VIAL. ONE (07:14)
[2019-06-07] MEDS ORDERED: SURGICEL FIBRILLAR 1X2 EACH. ONE (07:14)
[2019-06-07] MEDS ORDERED: DEXAMETHASONE SOD PHOS 4 MG/ML VIAL ONE (07:14)
[2019-06-07] MEDS ORDERED: LIDOCAINE 2% PF 5 ML VIAL. ONE (07:14)
[2019-06-07] MEDS ORDERED: LIDOCAINE 1% Multi-Dose 20 ML VIAL. ONE ×2 (07:14)
[2019-06-07] MEDS ORDERED: PROPOFOL 20 ML IV ONE ×2 (07:14→08:56)
[2019-06-07] MEDS ORDERED: PAPAVERINE 60 MG/2 ML VIAL. ONE (07:14)
--- NOTE | 2019-06-07 07:46 | DISCH ---
DISCHARGE INSTRUCTIONS Condition on Discharge Condition on Discharge: Stable Activity After Discharge Activity Instructions for Disc: Activity as tolerated Bathing Instructions: Shower-keep dressing dry (may shower in 48 hours, then keep incision dry and intact) Lifting Instructions after Dis: No heavy lifting Exercise Instruction after Dis: Exercise per therapy Driving Instructions after Dis: Do not drive today Weight Bearing Status after Di: As tolerated Diet after Discharge Diet after Discharge: Renal Non-Dialysis Diet Texture: Regular Wound Incision Care Wound/Incision Care: Change dressing, No wound care needed Other wound/incision instructi: may remove dressing in 48 hours Contacting the DRCatherine after DC Call your doctor for: If your condition worsens Follow-Up Follow up with: Dr Marin, 06/27/2019 0915 DAFNE VERDE APRN Jun 07, 2019 07:45
[2019-06-07] MEDS ORDERED: FAMOTIDINE 20 MG/2 ML VIAL ONE (08:00)
[2019-06-07] MEDS ORDERED: ePHEDrine PF IN SALINE 50 MG/10 ML SYRINGE. IV ONE ×2 (08:00→08:38)
[2019-06-07] MEDS ORDERED: HEPARIN for IV BOLUS 10,000 UNIT/10 ML VIAL. ONE (08:30)
[2019-06-07] MEDS ORDERED: GLYCOPYRROLATE 1 MG/5 ML VIAL. ONE (08:38)
[2019-06-07] MEDS ORDERED: SEVOFLURANE 61 TO 120 MINUTES. IH ONE (08:55)
[2019-06-07] MEDS ORDERED: SEVOFLURANE 31 TO 60 MINUTES. IH ONE (08:55)
--- NOTE | 2019-06-07 09:08 | PDOC ---
BRIEF OPERATIVE NOTE Date: Jun 07, 2019 Pre-Op Diagnosis Renal failure, needs terminal makeup operator access Post-Op Diagnosis same Procedure Performed Left radial cephalic fistula placement Surgeon Dr. Vanessa Washing Machine Striper Dafne Verde NP Anesthesia Type: General Blood Loss 10cc Specimens Obtained none Findings adequate cephalic vein Complications none Operative Note see dictated note for additional information DAFNE VERDE APRN Jun 07, 2019 09:08
[2019-06-07] MEDS ORDERED: HYDROcodone/APAP 5/325MG 1 TAB TABLET PO ONE (09:15)
--- NOTE | 2019-06-07 09:20 | OP ---
DATE OF SURGERY: 06/07/2019 VASCULAR SURGERY OPERATIVE NOTE ATTENDING SURGEON: Jaden Smalls DO AGRICULTURAL ENGINEERING TECHNICIAN: Rebecca Madrigal NP PREOPERATIVE DIAGNOSIS: Chronic kidney disease stage 4. POSTOPERATIVE DIAGNOSES: Chronic kidney disease stage 4. PROCEDURE: Creation of a left radiocephalic AV fistula. ANESTHESIA: General. SPECIMENS: None. ESTIMATED BLOOD LOSS: 10 mL. COMPLICATIONS: None. PREOPERATIVE INDICATIONS: The patient is a 79-year-old male who has not started dialysis, but does have impending dialysis needs. The patient was consented for AV fistula creation. I did review his venous mapping and he was a good candidate for fistula creation. All risks, benefits, and alternatives of the procedure were discussed with the patient and he was agreeable to proceed. OPERATIVE PROCEDURE: The patient was brought to the operating suite and placed in supine position. After establishing appropriate anesthesia, the left upper extremity was prepped and draped in sterile fashion. Next, a timeout procedure was performed. It was confirmed that the patient did receive appropriate perioperative antibiotics and the correct operative site was marked and draped. Following this, a midforearm incision was made, carried through skin and subcutaneous tissue after infiltrating 1% lidocaine. Dissection was carried down to the cephalic vein where this was circumferentially dissected both proximally and distally. I was also able to identify several large tributaries of the vein and individually ligate these. Following this, the radial artery was dissected circumferentially and controlled with vessel loops. The patient was heparinized per weight-based protocol. Following this, our cephalic vein was ligated and divided and then dilated using heparinized saline solution. I was able to connect 2 branches to create one uniformed opening for anastomosis. After appropriate dilation of the vein and easily flushing the vein with heparinized saline solution, the radial artery was controlled proximally and distally. Next, an 11 blade scalpel was used to create an arteriotomy. This was extended using Meyer scissors. Next, an end-to-side anastomosis was sewn in place using 7-0 Prolene suture in a running fashion. Prior to completing anastomosis, I did backbleed and flush the vessels appropriately and then the anastomosis was completed and flow was restored. The patient had excellent thrill throughout the cephalic vein and I ensured that there was no kinking of the vein through its outflow tract. Next, hemostasis was confirmed and I did use a little bit of Fibrillar to help with hemostasis. After I was satisfied with hemostasis, the skin was closed using running 3-0 Vicryl suture followed by Dermabond for the skin. The patient tolerated the procedure well and was transferred to the postanesthesia care unit in stable condition. Rebecca Madrigal was my home care assistant today as this [facility] does not have [facility] support and she assisted with the opening the mid body of the procedure and the closing of the procedure. Due to the complexity of the procedure, a skilled nurse practitioner was required as a nurse first aid. JADEN SMALLS DO DR: EDGARD/stephanie JOB#: [id number] / [id number]
[2019-06-07] MEDS ORDERED: HYDR-3164 PO (09:21)
[2019-06-07 09:40] VITALS: BP 176/83
== END 2019-06-07 10:40 | disposition home or self-care (01) ==
LOC: SURG 05:44
PROVIDERS: ATTEND Surgery
DX: I13.0 Hypertensive heart and chronic kidney disease with heart failure and stage 1 through stage 4 chronic kidney disease, or unspecified chronic kidney disease (principal); N18.4 Chronic kidney disease, stage 4 (severe); I50.9 Heart failure, unspecified; D64.9 Anemia, unspecified; F41.9 Anxiety disorder, unspecified; I48.92 Unspecified atrial flutter; E78.00 Pure hypercholesterolemia, unspecified; I48.91 Unspecified atrial fibrillation; J43.9 Emphysema, unspecified; F17.210 Nicotine dependence, cigarettes, uncomplicated; K21.9 Gastro-esophageal reflux disease without esophagitis; F32.9 Major depressive disorder, single episode, unspecified; E66.9 Obesity, unspecified; Z68.25 Body mass index [BMI] 25.0-25.9, adult; Z85.46 Personal history of malignant neoplasm of prostate; Z86.010 Personal history of colon polyps; Z98.890 Other specified postprocedural states; Z88.8 Allergy status to other drugs, medicaments and biological substances; Z88.1 Allergy status to other antibiotic agents; Z91.041 Radiographic dye allergy status; Z87.01 Personal history of pneumonia (recurrent); Z98.42 Cataract extraction status, left eye; Z98.41 Cataract extraction status, right eye; Z79.01 Long term (current) use of anticoagulants; Z96.1 Presence of intraocular lens
CPT/HCPCS: 36415; 36821; 80048; 85025; A7015; J0171; J0690; J0696; J0780; J1100; J1644; J2001; J2405; J2704; J3490; J7040; J2440

== ENCOUNTER → 2019-09-16 | Outpatient (CLI) | payer MEDICARE, BC ==
[~2019-09-16] MED LIST changes: +BUPIVACAINE MPF 0.5% 10 ML VIAL for KCIC. IM ONE; +HYDR-3164 PO; +IOHEXOL 300 MG/ML 50 ML VIAL. INT ART ONE; +LIDOCAINE 1% Multi-Dose 20 ML VIAL. ID ONE; +methylPREDNISolone ACETATE 40 MG/ML VIAL. INT ART ONE
--- NOTE | 2019-09-16 16:00 | KCIC ---
PROCEDURE: Right hip steroid injection under fluoroscopic guidance INDICATION: Right hip pain. CONTRAST: 5 cc Omnipaque 300 FINDINGS: The risks, benefits and alternatives to the procedure were discussed with the patient. A timeout was performed to confirm the patient's identity and laterality of the injection. Utilizing sterile technique, fluoroscopic guidance and local anesthesia with 1% lidocaine, the right hip joint was accessed utilizing a 22-gauge spinal needle. A small amount contrast was used to confirm the intra-articular location of the needle tip. Subsequently, a solution containing 2 cc bupivacaine and 2 cc (80 mg) Depo-Medrol was injected. There were no immediate complications. Fluoroscopy time: 15 seconds Number of images obtained: 1 Impression: Technically successful right hip steroid injection under fluoroscopic guidance. Electronically signed by: SOFIA LOCO MD (09/16/2019 3:58 PM) [id number]
== END ==
LOC: KCIC 12:19
PROVIDERS: ATTEND Orthopaedic Surgery Sports Medicine
DX: M25.551 Pain in right hip (principal)
CPT/HCPCS: 20610; 77002; J1030; J3490; Q9967

== ENCOUNTER 2019-11-10 14:36 | Inpatient (IN) | payer MEDICARE, BC ==
[~2019-11-10] VITALS: Ht 182.9 cm; Wt 86.0 kg
[~2019-11-10 14:36] MED LIST changes: -BUPIVACAINE MPF 0.5% 10 ML VIAL for KCIC. IM ONE; -IOHEXOL 300 MG/ML 50 ML VIAL. INT ART ONE; -LIDOCAINE 1% Multi-Dose 20 ML VIAL. ID ONE; -methylPREDNISolone ACETATE 40 MG/ML VIAL. INT ART ONE
[2019-11-10] MEDS ORDERED: cefTRIAXone IV Push 1 GM VIAL. IVP ONE (14:45)
[2019-11-10] MEDS ORDERED: ACETAMINOPHEN 650 MG SUPP.RECT. PR ONE (15:00)
[2019-11-10 15:18] LABS: BASO % 0 % (0-3); EOS % 1 % (0-3); LYMPH # 0.1 x10^3/uL (1.0-4.8); LYMPH % 4 % (24-48); MEAN CORPUSCULAR HEMOGLOBIN 34 pg (25-35); MEAN CORPUSCULAR HGB CONC 34 g/dL (31-37); MEAN CORPUSCULAR VOLUME 98 fL (79-100); MONO % 0 % (0-9); NEUT # 1.9 x10^3/uL (1.8-7.7); NEUT % 95 % (31-73); PLATELET COUNT 91 x10^3/uL (140-400); RED BLOOD COUNT 3.27 x10^6/uL (4.30-5.70); RED CELL DISTRIBUTION WIDTH 15.6 % (11.5-14.5); WHITE BLOOD COUNT 2.1 x10^3/uL (4.0-11.0)
[2019-11-10 15:19] LABS: BILIRUBIN,URINE NEGATIVE (NEG); CLARITY,URINE CLEAR; COLOR,URINE YELLOW; NITRITE,URINE NEGATIVE (NEG); PROTEIN,URINE >=300 mg/dL (NEG-TRACE); UROBILINOGEN,URINE 0.2 mg/dL (0.2 mg/dL)
[2019-11-10 15:26] LABS: BACTERIA,URINE 0 /HPF (0-FEW); SQUAMOUS EPITHELIAL CELL,UR OCC /LPF; WBC,URINE RARE /HPF (0-4)
[2019-11-10 15:30] LABS: ALBUMIN 2.2 g/dL (3.4-5.0); ALBUMIN/GLOBULIN RATIO 0.7 (1.0-1.7); CALCIUM 8.1 mg/dL (8.5-10.1); CREATININE 3.2 mg/dL (0.7-1.3); GFR 18.9; TOTAL BILIRUBIN 1.1 mg/dL (0.2-1.0); TOTAL PROTEIN 5.3 g/dL (6.4-8.2)
--- NOTE | 2019-11-10 15:43 | PHYS DOC ---
Past Medical History Past Medical History: A-Fib, COPD, Hypertension, Renal Failure Additional Past Medical Histor: hernia; a-flutter, esophagitis, gastritis, resp failure Past Surgical History: Tonsillectomy, Other Additional Past Surgical Histo: hernia, esophagus Smoking Status: Current Every Day Smoker Alcohol Use: None Drug Use: None General Adult EDM: Chief Complaint: NAUSEA/VOMITING/DIARRHA HPI: HPI: Patient is a 79-year-old male with past medical history of end-stage renal disease who presents to the emergency room with altered mental status. According to EMS report patient has only had an hour of dialysis each day this week instead of his normal 3 hours. His states that he called her during dialysis and said that he did not feel well. He came home and had multiple episodes of vomiting and stated that his belly hurt. She states that he then became confused and lethargic. Patient is unable to provide any history at this time. Is unclear whether or not he was sick prior to this. Review of Systems: Review of Systems: Unable to obtain due to altered mental status Heart Score: Risk Factors: Risk Factors: DM, Current or recent (<one month) smoker, HTN, HLP, family history of CAD, obesity. Risk Scores: Score 0 - 3: 2.5% MACE over next 6 weeks - Discharge Home Score 4 - 6: 20.3% MACE over next 6 weeks - Admit for Clinical Observation Score 7 - 10: 72.7% MACE over next 6 weeks - Early Invasive Strategies Current Medications: Current Medications Medications (Trade) Dose Ordered Sig/[facility] Start Time Stop Time Status Last Admin Dose Admin Acetaminophen (Tylenol Supp) 650 mg 1X ONCE 11/10/19 15:00 11/10/19 15:11 DC 11/10/19 15:01 650 MG Ceftriaxone Sodium (Rocephin) 1 gm 1X ONCE 11/10/19 14:45 11/10/19 14:46 DC 11/10/19 14:59 1 GM Allergies: Allergies: Allergies Coded Allergies Type Severity Reaction Last Updated Verified regadenoson Allergy Severe Anaphylaxis 06/07/19 Yes Iodinated Contrast Media Allergy Intermediate 06/07/19 Yes Nitrofuran Analogues Allergy Intermediate rash 06/07/19 Yes dutasteride Allergy Intermediate rash 06/07/19 Yes finasteride Allergy Intermediate hives 06/07/19 Yes NSAIDS (Non-Steroidal Anti-Inflamma Adverse Reaction Intermediate 06/07/19 Yes Uncoded Allergies Type Severity Reaction Last Updated Verified diuretics Adverse Reaction Unknown 03/11/19 Physical Exam: PE: General: lethargic, ill appearing. Well Nourished, well hydrated. HEENT: Atraumatic, EOMI, PERRL, airway patent Neck: Supple, trachea midline Respiratory: CTA bilaterally, normal effort, no wheezing/crackles CV: tachycardia, no murmur, cap refill <2 GI: Soft, nondistended, no masses MSK: No obvious deformities, L arm fistula Skin: Warm, dry, intact Neuro: confused, listless, moves extremities sporadically Current Patient Data: Labs: Laboratory Tests Test 11/10/19 15:00 11/10/19 15:07 White Blood Count 2.1 x10^3/uL (4.0-11.0) L Red Blood Count 3.27 x10^6/uL (4.30-5.70) L Hemoglobin 11.0 g/dL (13.0-17.5) L Hematocrit 32.0 % (39.0-53.0) L Mean Corpuscular Volume 98 fL (79-100) Mean Corpuscular Hemoglobin 34 pg (25-35) Mean Corpuscular Hemoglobin Concent 34 g/dL (31-37) Red Cell Distribution Width 15.6 % (11.5-14.5) H Platelet Count 91 x10^3/uL (140-400) L Neutrophils (%) (Auto) 95 % (31-73) H Lymphocytes (%) (Auto) 4 % (24-48) L Monocytes (%) (Auto) 0 % (0-9) Eosinophils (%) (Auto) 1 % (0-3) Basophils (%) (Auto) 0 % (0-3) Neutrophils # (Auto) 1.9 x10^3/uL (1.8-7.7) Lymphocytes # (Auto) 0.1 x10^3/uL (1.0-4.8) L Monocytes # (Auto) 0.0 x10^3/uL (0.0-1.1) Eosinophils # (Auto) 0.0 x10^3/uL (0.0-0.7) Basophils # (Auto) 0.0 x10^3/uL (0.0-0.2) Platelet Estimate Pending Sodium Level 142 mmol/L (136-145) Potassium Level 3.0 mmol/L (3.5-5.1) L Chloride Level 105 mmol/L (98-107) Carbon Dioxide Level 29 mmol/L (21-32) Anion Gap 8 (6-14) Blood Urea Nitrogen 24 mg/dL (8-26) Creatinine 3.2 mg/dL (0.7-1.3) H Estimated GFR (Cockcroft-Gault) 18.9 BUN/Creatinine Ratio 8 (6-20) Glucose Level 71 mg/dL (70-99) Lactic Acid Level 2.2 mmol/L (0.4-2.0) H Calcium Level 8.1 mg/dL (8.5-10.1) L Total Bilirubin 1.1 mg/dL (0.2-1.0) H Aspartate Amino Transferase (AST) 291 U/L (15-37) H Alanine Aminotransferase (ALT) 187 U/L (16-63) H Alkaline Phosphatase 207 U/L (46-116) H Total Protein 5.3 g/dL (6.4-8.2) L Albumin 2.2 g/dL (3.4-5.0) L Albumin/Globulin Ratio 0.7 (1.0-1.7) L Lipase 40 U/L (73-393) L Urine Collection Type U cath Urine Color Yellow Urine Clarity Clear Urine pH 8.0 (<5.0-8.0) Urine Specific [place] 1.010 (1.000-1.030) Urine Protein >=300 mg/dL (NEG-TRACE) Urine Glucose (UA) Negative mg/dL (NEG) Urine Ketones (Stick) Negative mg/dL (NEG) Urine Blood Small (NEG) Urine Nitrite Negative (NEG) Urine Bilirubin Negative (NEG) Urine Urobilinogen Dipstick 0.2 mg/dL (0.2 mg/dL) Urine Leukocyte Esterase Negative (NEG) Urine RBC 6-10 /HPF (0-2) Urine WBC Rare /HPF (0-4) Urine Squamous Epithelial Cells Occ /LPF Urine Bacteria 0 /HPF (0-FEW) Laboratory Tests 11/10/19 15:00 Laboratory Tests 11/10/19 15:00 Vital Signs: Vital Signs Date Time Temp Pulse Resp B/P (MAP) Pulse Ox O2 Delivery O2 Flow Rate FiO2 11/10/19 15:14 104.2 104.2 11/10/19 14:48 105 24 187/77 (113) 93 Room Air EKG: EKG: [] Radiology/Procedures: Radiology/Procedures: [] Course & Med Decision Making: Course & Med Decision Making Pertinent Labs and Imaging studies reviewed. (See chart for details) Patient is 79-year-old male who presents to the emergency room with fever and altered mental status. This is likely due to delirium. Sepsis protocol was followed. Patient will not be given fluids as he is on dialysis and is unclear at this time whether or not this could be the coronavirus. His blood pressure is stable and he does not require fluids at this time. CBC, BMP, LFTs, troponin, EKG, chest x-ray, UA, coronavirus test, blood cultures were ordered. Patient was given Rocephin. CT abdomen pelvis and CT head were ordered due to confusion and his stating that he had abdominal pain prior to his confusion. After his fever resolved patient got significantly better and became oriented. He is able to follow all commands. He does not have any focal deficits on exam. He will be admitted for possible sepsis with colitis. He will be treated as a P URI. Nikole Disclaimer: Nikole Disclaimer: This electronic medical record was generated, in whole or in part, using a voice recognition dictation system. Departure Departure Impression: Primary Impression: Colitis Additional Impressions: Sepsis Delirium Disposition: ADMITTED INPATIENT Condition: IMPROVED Referrals: ERICK CALDWELL MD (PCP) Justicifation of Admission Dx: Justifications for Admission: Justification of Admission Dx: Yes KAREN DE LA ROSA MD Nov 10, 2019 15:43
[2019-11-10 15:51] LABS: % BANDS 6 % (0-9); % LYMPHS 10 % (24-48); % METAS 2 % (0-0); % SEGS 82 % (35-66); PLT ESTIMATE DECREASED (ADEQUATE)
[2019-11-10 15:53] LABS: TOXIC VACUOLATION SLIGHT
--- NOTE | 2019-11-10 16:02 | RAD ---
INDICATION: Reason: sepsis / Spl. Instructions: / History: COMPARISON: February 2019 FINDINGS: Single view of chest obtained. Coarsened interstitial markings bilaterally. Calcific atherosclerosis. Mild interstitial opacities with patchy opacities at the lung bases. Degenerative changes spine IMPRESSION: * Mild patchy interstitial opacities bilaterally which can be seen with mild edema or interstitial infiltrate. Electronically signed by: Carlos Goins MD (11/10/2019 3:59 PM) [id number]
--- NOTE | 2019-11-10 16:09 | RAD ---
CT HEAD WO CONTRAST History:Confusion Comparison: None. Technique: Noncontrast CT imaging was performed of the head. Exposure: One or more of the following individualized dose reduction techniques were utilized for this examination: 1. Automated exposure control 2. Adjustment of the mA and/or kV according to patient size 3. Use of iterative reconstruction technique. Findings: No acute extra-axial or parenchymal hemorrhage is identified. There is no significant intra-axial mass effect, midline shift, or extra-axial fluid collection. The mccabe-white differentiation of the major vascular territories is preserved. Ventricular size is within normal limits. There is mild supratentorial atrophy greater of the parietal lobes. There is at least mild ill-defined hypodensity of the supratentorial parenchyma bilaterally. There is some atherosclerotic calcification of the carotid siphons bilaterally. The mastoid air cells and the visualized paranasal sinuses are aerated. No acute calvarial abnormality is identified. Impression: 1. There is mild supratentorial atrophy greater of the parietal lobes. At least mild ill-defined low-density of the supratentorial parenchyma is nonspecific, more commonly due to chronic microvascular ischemic disease in a patient this age. Electronically signed by: Janusz Hsieh MD (11/10/2019 4:06 PM) [id number]
--- NOTE | 2019-11-10 16:14 | RAD ---
Exam: CT abdomen and pelvis without contrast INDICATION: Sepsis, diarrhea and vomiting TECHNIQUE: Sequential axial images through the abdomen and pelvis obtained without IV contrast. Sagittal and coronal reformatted images were reconstructed from the axial data and reviewed. Comparisons: None FINDINGS: Heart size is normal. No pericardial effusion. There are small bilateral pleural effusions. Visualized lung bases are otherwise clear. Evaluation of solid organs is limited secondary to noncontrast technique. Liver, spleen, pancreas, gallbladder and adrenals are unremarkable. No perinephric inflammation or hydronephrosis. No renal or ureteral calculi are identified. Bladder is decompressed not well evaluated. Prostate is not enlarged. Mild diffuse wall thickening involving the descending and sigmoid colon. Remainder of the large and small bowel are unremarkable. No free abdominal air or fluid. No obstruction. Abdominal aorta has a normal course and caliber. No enlarged abdominal lymph nodes are identified. No suspicious osseous lesions or acute fractures. IMPRESSION: 1. Mild diffuse wall thickening involving the descending and sigmoid colon, favored represent colitis, may be infectious or inflammatory. 2. Small bilateral pleural effusions Exposure: One or more of the following in the visualized dose reduction techniques were utilized for this examination: 1. Automated exposure control 2. Adjustment of the MA and/or KV according to patient size 3. Use of iterative of reconstructive technique Electronically signed by: Rene Celis MD (11/10/2019 4:11 PM) [id number]
[2019-11-10] MEDS ORDERED: IV NORMAL SALINE 1000ML BAG 1,000 ML IV ONE (17:30)
[2019-11-10 19:45] VITALS: BP 149/95
[2019-11-10] MEDS ORDERED: PIP/TAZO PER PHARMACY MC PRN (20:00)
[2019-11-10] MEDS ORDERED: APIX2.5T PO (20:01)
[2019-11-10] MEDS ORDERED: SUCR1TAB PO (20:10)
[2019-11-10] MEDS ORDERED: ISOS30TA4 PO (20:10)
[2019-11-10] MEDS ORDERED: CHOL400T55 PO (20:10)
[2019-11-10] MEDS ORDERED: FOLI0.8T21 PO (20:10)
[2019-11-10] MEDS ORDERED: OMEG100021 PO (20:10)
--- NOTE | 2019-11-10 20:45 | HP ---
ADMIT DATE: 11/10/2019 CHIEF COMPLAINT: Nausea, vomiting, diarrhea. HISTORY OF PRESENT ILLNESS: The patient is a pleasant 79-year-old male who has multiple medical issues. He smokes every day. He has renal failure. Today, he presents with nausea, vomiting, and diarrhea. He came in by EMS. It has been slowly worsening over the past couple of days, but an hour before dialysis each day is when it gets worse. He called dialysis today and stated he did not feel well. He had multiple episodes of nausea. He had some confusion. I discussed the case with ER physician. We are going to admit the patient and consult Nephrology, GI and follow the sepsis protocol. PAST MEDICAL HISTORY: End-stage renal disease, on dialysis; hyperlipidemia, hypertension, AFib, hernia repair. Atrial flutter, esophagitis, gastritis, respiratory failure, tonsillectomy, tobacco abuse. ALLERGIES: NSAIDS, NITROFURANTOIN, DIURETICS AND FINASTERIDE. FAMILY HISTORY: Coronary artery disease. SOCIAL HISTORY: He smokes. No drink or drugs. MEDICATIONS: Reviewed, please refer to the MRAD. REVIEW OF SYSTEMS: GENERAL: He complains of weakness. SKIN: No bruising, hair changes or rashes. EYES: No blurred, double or loss of vision. NOSE AND THROAT: No history of nosebleeds, hoarseness or sore throat. HEART: No history of palpitations, chest pain or shortness of breath on exertion. LUNGS: Denies cough, hemoptysis, wheezing or shortness of breath. GASTROINTESTINAL: Denies changes in appetite, nausea, vomiting, diarrhea or constipation. GENITOURINARY: No history of frequency, urgency, hesitancy or nocturia. NEUROLOGIC: Denies history of numbness, tingling, tremor or weakness. PSYCHIATRIC: He complains of some depression. ENDOCRINE: No history of heat or cold intolerance, polyuria or polydipsia. EXTREMITIES: Denies muscle weakness, joint pain, pain on walking or stiffness. PHYSICAL EXAMINATION: VITALS: Within normal limits and are stable. GENERAL: No apparent distress. Alert and oriented. HEENT: Normal cephalic atraumatic, external auditory canals are patent EYES: Extraocular muscles are intact, pupils are equally round and reactive to light and accommodation MUSCULOSKELETAL: Well developed, well nourished, good range of motion ENDOCRINE: No thyromegaly was palpated LYMPHATICS: No cervical chain or axillary nodes were noted HEMATOPOIETIC: No bruising NECK: Supple, no JVD, no thyromegaly was noted. LUNGS: Clear to auscultation in all lung cronin without rhonchi or wheezing. HEART: RRR, S1, S2 present. Peripheral pulses intact, no obvious murmurs were noted. ABDOMEN: He has decreased bowel sounds. EXTREMITIES: Without any cyanosis, clubbing, or edema. Pedal pulses intact, Homans sign is negative. NEUROLOGIC: He is more alert now. PSYCHIATRIC: Normal affect, normal mood. Stable. SKIN: He is slightly jaundiced. VASCULAR: Good capillary refill, neurovascular bundle appears to be intact. DIAGNOSTIC DATA: CT of the head showed some atrophy and some chronic microvascular disease. CT of the abdomen showed diffuse wall thickening of the descending colon and sigmoid colon, which represents colitis. He has got some small pleural effusions as well. Chest x-ray showed possible edema or infiltrate. ASSESSMENT AND PLAN: Nausea, vomiting, diarrhea, abdominal pain, shortness of breath, abnormal chest x-ray, colitis and small pleural effusion. The patient will be admitted. We will consult GI and Pulmonary. Gentle IV fluids if Nephrology agrees. Consult Nephrology for dialysis management. Full code. P.r.n. Tylenol, p.r.n. Zofran, IV antibiotics, home meds, DVT prophylaxis. PROGNOSIS: Guarded. KONSTANTIN VILLATORO DO DR: LINDA/stephanie JOB#: [id number] / [id number]
[2019-11-10] MEDS ORDERED: POTASSIUM CHLORIDE 20 MEQ TABLET.ER. PO ONE (21:30)
[2019-11-10] MEDS: PIPERACILLIN/TAZOBACTAM 2.25 GM in IV NORMAL SALINE 50ML 50 ML IV SCH (21:37)
[2019-11-10 23:49] VITALS: BP 132/63
[2019-11-11 03:27] VITALS: BP 143/64
[2019-11-11] MEDS: PIPERACILLIN/TAZOBACTAM 2.25 GM in IV NORMAL SALINE 50ML 50 ML IV SCH ×3 (05:32→20:29)
[2019-11-11 07:00] VITALS: BP 109/56
[2019-11-11] MEDS ORDERED: ALBUTEROL SULFATE 2.5 MG/3 ML NEBU. NEB SCH (08:00)
[2019-11-11] MEDS: CARVEDILOL 6.25 MG TABLET. PO SCH ×2 (08:00→16:02)
[2019-11-11] MEDS ORDERED: BUDESONIDE 0.5 MG/2 ML NEBU. NEB SCH (08:15)
--- NOTE | 2019-11-11 08:57 | PDOC ---
PROGRESS NOTES Date of Service: DATE: 11/11/19 TIME: 08:56 Chief Complaint Chief Complaint ASSESSMENT AND PLAN: Nausea, vomiting, Mild diffuse wall thickening involving the descending and sigmoid colon, favored represent colitis, may be infectious or inflammatory. diarrhea, pancytopenia abdominal pain, shortness of breath, abnormal chest x-ray, colitis small pleural effusion. sepsis acute metabolic encephalopathy admitted. consult GI and Pulmonary. IV fluids if Nephrology agrees. Consult Nephrology for dialysis management. Full code. P.r.n. Tylenol, p.r.n. Zofran, IV antibiotics, home meds, DVT prophylaxis. with neutropenic colitis, etiology to be determined. cultures and viral hepatitis serologies. Heme consult for possible BM biopsy. 37 min pt exam, chart review, > 50% of time spent with exam, chart review, pt care coordination History of Present Illness History of Present Illness 79-year-old male who has multiple medical issues. He smokes every day. He has renal failure. he presents with nausea, vomiting, and diarrhea, fever. He came in by EMS. It has been slowly worsening over the past couple of days, but an hour before dialysis each day is when it gets worse. He called dialysis today and stated he did not feel well. He had multiple episodes of nausea. He had some confusion. Vitals Vitals Vital Signs Date Time Temp Pulse Resp B/P (MAP) Pulse Ox O2 Delivery O2 Flow Rate FiO2 11/11/19 03:27 98.3 66 143/64 (90) 99 Nasal Cannula 2.0 98.3 11/10/19 23:49 23 Physical Exam Physical Exam HEENT: Normal cephalic atraumatic, external auditory canals are patent EYES: Extraocular muscles are intact, pupils are equally round and reactive to light and accommodation MUSCULOSKELETAL: Well developed, well nourished, good range of motion ENDOCRINE: No thyromegaly was palpated LYMPHATICS: No cervical chain or axillary nodes were noted HEMATOPOIETIC: No bruising NECK: Supple, no JVD, no thyromegaly was noted. LUNGS: Clear to auscultation in all lung cronin without rhonchi or wheezing. HEART: RRR, S1, S2 present. Peripheral pulses intact, no obvious murmurs were noted. ABDOMEN: He has decreased bowel sounds. EXTREMITIES: Without any cyanosis, clubbing, or edema. Pedal pulses intact, Homans sign is negative. NEUROLOGIC: He is more alert now. PSYCHIATRIC: Normal affect, normal mood. Stable. SKIN: He is slightly jaundiced. VASCULAR: Good capillary refill, neurovascular bundle appears to be intact. General: Alert, Oriented X3, Cooperative, No acute distress Lungs: Clear, Crackles Extremities: No cyanosis Labs LABS CT HEAD WO CONTRAST History:Confusion Comparison: None. Technique: Noncontrast CT imaging was performed of the head. Exposure: One or more of the following individualized dose reduction techniques were utilized for this examination: 1. Automated exposure control 2. Adjustment of the mA and/or kV according to patient size 3. Use of iterative reconstruction technique. Findings: No acute extra-axial or parenchymal hemorrhage is identified. There is no significant intra-axial mass effect, midline shift, or extra-axial fluid collection. The mccabe-white differentiation of the major vascular territories is preserved. Ventricular size is within normal limits. There is mild supratentorial atrophy greater of the parietal lobes. There is at least mild ill-defined hypodensity of the supratentorial parenchyma bilaterally. There is some atherosclerotic calcification of the carotid siphons bilaterally. The mastoid air cells and the visualized paranasal sinuses are aerated. No acute calvarial abnormality is identified. Impression: 1. There is mild supratentorial atrophy greater of the parietal lobes. At least mild ill-defined low-density of the supratentorial parenchyma is nonspecific, more commonly due to chronic microvascular ischemic disease in a patient this age. Electronically signed by: Skyla Zimmerman MD (11/10/2019 4:06 PM) [id number] DICTATED and SIGNED BY: SKYLA ZIMMERMAN MD DATE: 11/10/19 1606 INDICATION: Reason: sepsis / Spl. Instructions: / History: COMPARISON: February 2019 FINDINGS: Single view of chest obtained. Coarsened interstitial markings bilaterally. Calcific atherosclerosis. Mild interstitial opacities with patchy opacities at the lung bases. Degenerative changes spine IMPRESSION: * Mild patchy interstitial opacities bilaterally which can be seen with mild edema or interstitial infiltrate. Electronically signed by: Mily Goins MD (11/10/2019 3:59 PM) [id number] DICTATED and SIGNED BY: MILY GOINS MD DATE: 11/10/19 1553 Comparisons: None FINDINGS: Heart size is normal. No pericardial effusion. There are small bilateral pleural effusions. Visualized lung bases are otherwise clear. Evaluation of solid organs is limited secondary to noncontrast technique. Liver, spleen, pancreas, gallbladder and adrenals are unremarkable. No perinephric inflammation or hydronephrosis. No renal or ureteral calculi are identified. Bladder is decompressed not well evaluated. Prostate is not enlarged. Mild diffuse wall thickening involving the descending and sigmoid colon. Remainder of the large and small bowel are unremarkable. No free abdominal air or fluid. No obstruction. Abdominal aorta has a normal course and caliber. No enlarged abdominal lymph nodes are identified. No suspicious osseous lesions or acute fractures. IMPRESSION: 1. Mild diffuse wall thickening involving the descending and sigmoid colon, favored represent colitis, may be infectious or inflammatory. 2. Small bilateral pleural effusions Exposure: One or more of the following in the visualized dose reduction techniques were utilized for this examination: 1. Automated exposure control 2. Adjustment of the MA and/or KV according to patient size 3. Use of iterative of reconstructive technique Electronically signed by: Rene Jones MD (11/10/2019 4:11 PM) [id number] DICTATED and SIGNED BY: RENE JONES MD DATE: 11/10/19 1611 Laboratory Tests Test 11/10/19 15:00 11/10/19 15:07 11/11/19 00:10 White Blood Count 2.1 x10^3/uL (4.0-11.0) Red Blood Count 3.27 x10^6/uL (4.30-5.70) Hemoglobin 11.0 g/dL (13.0-17.5) Hematocrit 32.0 % (39.0-53.0) Mean Corpuscular Volume 98 fL (79-100) Mean Corpuscular Hemoglobin 34 pg (25-35) Mean Corpuscular Hemoglobin Concent 34 g/dL (31-37) Red Cell Distribution Width 15.6 % (11.5-14.5) Platelet Count 91 x10^3/uL (140-400) Neutrophils (%) (Auto) 95 % (31-73) Lymphocytes (%) (Auto) 4 % (24-48) Monocytes (%) (Auto) 0 % (0-9) Eosinophils (%) (Auto) 1 % (0-3) Basophils (%) (Auto) 0 % (0-3) Neutrophils # (Auto) 1.9 x10^3/uL (1.8-7.7) Lymphocytes # (Auto) 0.1 x10^3/uL (1.0-4.8) Monocytes # (Auto) 0.0 x10^3/uL (0.0-1.1) Eosinophils # (Auto) 0.0 x10^3/uL (0.0-0.7) Basophils # (Auto) 0.0 x10^3/uL (0.0-0.2) Segmented Neutrophils % 82 % (35-66) Band Neutrophils % 6 % (0-9) Lymphocytes % 10 % (24-48) Metamyelocytes % 2 % (0-0) Toxic Vacuolation Slight Platelet Estimate Decreased (ADEQUATE) Target Cells Sodium Level 142 mmol/L (136-145) Potassium Level 3.0 mmol/L (3.5-5.1) Chloride Level 105 mmol/L (98-107) Carbon Dioxide Level 29 mmol/L (21-32) Anion Gap 8 (6-14) Blood Urea Nitrogen 24 mg/dL (8-26) Creatinine 3.2 mg/dL (0.7-1.3) Estimated GFR (Cockcroft-Gault) 18.9 BUN/Creatinine Ratio 8 (6-20) Glucose Level 71 mg/dL (70-99) Lactic Acid Level 2.2 mmol/L (0.4-2.0) 1.8 mmol/L (0.4-2.0) Calcium Level 8.1 mg/dL (8.5-10.1) Total Bilirubin 1.1 mg/dL (0.2-1.0) Aspartate Amino Transf (AST/SGOT) 291 U/L (15-37) Alanine Aminotransferase (ALT/SGPT) 187 U/L (16-63) Alkaline Phosphatase 207 U/L (46-116) Troponin I Quantitative 0.046 ng/mL (0.000-0.055) Total Protein 5.3 g/dL (6.4-8.2) Albumin 2.2 g/dL (3.4-5.0) Albumin/Globulin Ratio 0.7 (1.0-1.7) Lipase 40 U/L (73-393) Urine Collection Type U cath Urine Color Yellow Urine Clarity Clear Urine pH 8.0 (<5.0-8.0) Urine Specific [place]thel 1.010 (1.000-1.030) Urine Protein >=300 mg/dL (NEG-TRACE) Urine Glucose (UA) Negative mg/dL (NEG) Urine Ketones (Stick) Negative mg/dL (NEG) Urine Blood Small (NEG) Urine Nitrite Negative (NEG) Urine Bilirubin Negative (NEG) Urine Urobilinogen Dipstick 0.2 mg/dL (0.2 mg/dL) Urine Leukocyte Esterase Negative (NEG) Urine RBC 6-10 /HPF (0-2) Urine WBC Rare /HPF (0-4) Urine Squamous Epithelial Cells Occ /LPF Urine Bacteria 0 /HPF (0-FEW) Assessment and Plan Assessmemt and Plan Problems Medical Problems: (1) Colitis Status: Acute (2) Delirium Status: Acute (3) Sepsis Status: Acute Comment Review of Relevant I have reviewed the following items karey (where applicable) has been applied. Labs Laboratory Tests Test 11/10/19 15:00 11/10/19 15:07 11/11/19 00:10 White Blood Count 2.1 x10^3/uL (4.0-11.0) Red Blood Count 3.27 x10^6/uL (4.30-5.70) Hemoglobin 11.0 g/dL (13.0-17.5) Hematocrit 32.0 % (39.0-53.0) Mean Corpuscular Volume 98 fL (79-100) Mean Corpuscular Hemoglobin 34 pg (25-35) Mean Corpuscular Hemoglobin Concent 34 g/dL (31-37) Red Cell Distribution Width 15.6 % (11.5-14.5) Platelet Count 91 x10^3/uL (140-400) Neutrophils (%) (Auto) 95 % (31-73) Lymphocytes (%) (Auto) 4 % (24-48) Monocytes (%) (Auto) 0 % (0-9) Eosinophils (%) (Auto) 1 % (0-3) Basophils (%) (Auto) 0 % (0-3) Neutrophils # (Auto) 1.9 x10^3/uL (1.8-7.7) Lymphocytes # (Auto) 0.1 x10^3/uL (1.0-4.8) Monocytes # (Auto) 0.0 x10^3/uL (0.0-1.1) Eosinophils # (Auto) 0.0 x10^3/uL (0.0-0.7) Basophils # (Auto) 0.0 x10^3/uL (0.0-0.2) Segmented Neutrophils % 82 % (35-66) Band Neutrophils % 6 % (0-9) Lymphocytes % 10 % (24-48) Metamyelocytes % 2 % (0-0) Toxic Vacuolation Slight Platelet Estimate Decreased (ADEQUATE) Target Cells Sodium Level 142 mmol/L (136-145) Potassium Level 3.0 mmol/L (3.5-5.1) Chloride Level 105 mmol/L (98-107) Carbon Dioxide Level 29 mmol/L (21-32) Anion Gap 8 (6-14) Blood Urea Nitrogen 24 mg/dL (8-26) Creatinine 3.2 mg/dL (0.7-1.3) Estimated GFR (Cockcroft-Gault) 18.9 BUN/Creatinine Ratio 8 (6-20) Glucose Level 71 mg/dL (70-99) Lactic Acid Level 2.2 mmol/L (0.4-2.0) 1.8 mmol/L (0.4-2.0) Calcium Level 8.1 mg/dL (8.5-10.1) Total Bilirubin 1.1 mg/dL (0.2-1.0) Aspartate Amino Transf (AST/SGOT) 291 U/L (15-37) Alanine Aminotransferase (ALT/SGPT) 187 U/L (16-63) Alkaline Phosphatase 207 U/L (46-116) Troponin I Quantitative 0.046 ng/mL (0.000-0.055) Total Protein 5.3 g/dL (6.4-8.2) Albumin 2.2 g/dL (3.4-5.0) Albumin/Globulin Ratio 0.7 (1.0-1.7) Lipase 40 U/L (73-393) Urine Collection Type U cath Urine Color Yellow Urine Clarity Clear Urine pH 8.0 (<5.0-8.0) Urine Specific [place] 1.010 (1.000-1.030) Urine Protein >=300 mg/dL (NEG-TRACE) Urine Glucose (UA) Negative mg/dL (NEG) Urine Ketones (Stick) Negative mg/dL (NEG) Urine Blood Small (NEG) Urine Nitrite Negative (NEG) Urine Bilirubin Negative (NEG) Urine Urobilinogen Dipstick 0.2 mg/dL (0.2 mg/dL) Urine Leukocyte Esterase Negative (NEG) Urine RBC 6-10 /HPF (0-2) Urine WBC Rare /HPF (0-4) Urine Squamous Epithelial Cells Occ /LPF Urine Bacteria 0 /HPF (0-FEW) Laboratory Tests Test 11/10/19 15:00 11/10/19 15:07 11/11/19 00:10 White Blood Count 2.1 x10^3/uL (4.0-11.0) Red Blood Count 3.27 x10^6/uL (4.30-5.70) Hemoglobin 11.0 g/dL (13.0-17.5) Hematocrit 32.0 % (39.0-53.0) Mean Corpuscular Volume 98 fL (79-100) Mean Corpuscular Hemoglobin 34 pg (25-35) Mean Corpuscular Hemoglobin Concent 34 g/dL (31-37) Red Cell Distribution Width 15.6 % (11.5-14.5) Platelet Count 91 x10^3/uL (140-400) Neutrophils (%) (Auto) 95 % (31-73) Lymphocytes (%) (Auto) 4 % (24-48) Monocytes (%) (Auto) 0 % (0-9) Eosinophils (%) (Auto) 1 % (0-3) Basophils (%) (Auto) 0 % (0-3) Neutrophils # (Auto) 1.9 x10^3/uL (1.8-7.7) Lymphocytes # (Auto) 0.1 x10^3/uL (1.0-4.8) Monocytes # (Auto) 0.0 x10^3/uL (0.0-1.1) Eosinophils # (Auto) 0.0 x10^3/uL (0.0-0.7) Basophils # (Auto) 0.0 x10^3/uL (0.0-0.2) Segmented Neutrophils % 82 % (35-66) Band Neutrophils % 6 % (0-9) Lymphocytes % 10 % (24-48) Metamyelocytes % 2 % (0-0) Toxic Vacuolation Slight Platelet Estimate Decreased (ADEQUATE) Target Cells Sodium Level 142 mmol/L (136-145) Potassium Level 3.0 mmol/L (3.5-5.1) Chloride Level 105 mmol/L (98-107) Carbon Dioxide Level 29 mmol/L (21-32) Anion Gap 8 (6-14) Blood Urea Nitrogen 24 mg/dL (8-26) Creatinine 3.2 mg/dL (0.7-1.3) Estimated GFR (Cockcroft-Gault) 18.9 BUN/Creatinine Ratio 8 (6-20) Glucose Level 71 mg/dL (70-99) Lactic Acid Level 2.2 mmol/L (0.4-2.0) 1.8 mmol/L (0.4-2.0) Calcium Level 8.1 mg/dL (8.5-10.1) Total Bilirubin 1.1 mg/dL (0.2-1.0) Aspartate Amino Transf (AST/SGOT) 291 U/L (15-37) Alanine Aminotransferase (ALT/SGPT) 187 U/L (16-63) Alkaline Phosphatase 207 U/L (46-116) Troponin I Quantitative 0.046 ng/mL (0.000-0.055) Total Protein 5.3 g/dL (6.4-8.2) Albumin 2.2 g/dL (3.4-5.0) Albumin/Globulin Ratio 0.7 (1.0-1.7) Lipase 40 U/L (73-393) Urine Collection Type U cath Urine Color Yellow Urine Clarity Clear Urine pH 8.0 (<5.0-8.0) Urine Specific [place]thel 1.010 (1.000-1.030) Urine Protein >=300 mg/dL (NEG-TRACE) Urine Glucose (UA) Negative mg/dL (NEG) Urine Ketones (Stick) Negative mg/dL (NEG) Urine Blood Small (NEG) Urine Nitrite Negative (NEG) Urine Bilirubin Negative (NEG) Urine Urobilinogen Dipstick 0.2 mg/dL (0.2 mg/dL) Urine Leukocyte Esterase Negative (NEG) Urine RBC 6-10 /HPF (0-2) Urine WBC Rare /HPF (0-4) Urine Squamous Epithelial Cells Occ /LPF Urine Bacteria 0 /HPF (0-FEW) Medications Current Medications Ceftriaxone Sodium (Rocephin) 1 gm 1X ONCE IVP Last administered on 11/10/19at 14:59; Start 11/10/19 at 14:45; Stop 11/10/19 at 14:46; Status DC Acetaminophen (Tylenol Supp) 650 mg 1X ONCE OH Last administered on 11/10/19at 15:01; Start 11/10/19 at 15:00; Stop 11/10/19 at 15:11; Status DC Sodium Chloride 1,000 ml @ 1,000 mls/hr 1X ONCE IV Last administered on 11/10/19at 17:30; Start 11/10/19 at 17:30; Stop 11/10/19 at 18:46; Status DC Piperacillin Sod/ Tazobactam Sod (Zosyn Per Pharmacy) 1 each PRN DAILY PRN MC SEE COMMENTS; Start 11/10/19 at 20:00 Piperacillin Sod/ Tazobactam Sod 2.25 gm/Sodium Chloride 50 ml @ 100 mls/hr Q8HRS IV Last administered on 11/11/19at 05:32; Start 11/10/19 at 22:00 Potassium Chloride (Klor-Con) 40 meq 1X ONCE PO Last administered on 11/10/19at 21:35; Start 11/10/19 at 21:30; Stop 11/10/19 at 21:31; Status DC Alprazolam (Xanax) 0.5 mg PRN Q6HRS PRN PO ANXIETY / AGITATION; Start 11/11/19 at 07:30 Apixaban (Eliquis) 2.5 mg BID PO ; Start 11/11/19 at 09:00 Bupropion HCl (Wellbutrin Xl) 150 mg DAILY PO ; Start 11/11/19 at 09:00 Carvedilol (Coreg) 6.25 mg BIDWMEALS PO ; Start 11/11/19 at 08:00 Vitamin B Complex/ Vitamin C (Mandi-Debbie) 1 tab DAILY PO ; Start 11/11/19 at 09:00 Acetaminophen/ Hydrocodone Bitart (Lortab 5/325) 1 tab QIDPRN PRN PO MODERATE PAIN; Start 11/11/19 at 07:30 Isosorbide Mononitrate (Imdur) 30 mg BID PO ; Start 11/11/19 at 09:00 Pantoprazole Sodium (Protonix) 40 mg BIDAC PO ; Start 11/11/19 at 08:00 Simvastatin (Zocor) 30 mg QHS PO ; Start 11/11/19 at 21:00 Sucralfate (Carafate) 1 gm QIDACHS PO ; Start 11/11/19 at 08:00 Tamsulosin HCl (Flomax) 0.4 mg BID PO ; Start 11/11/19 at 09:00 Non-Formulary Medication (Albuterol Sulfate (Ventolin Hfa Inhaler)) 2 puff QID INH ; Start 11/11/19 at 09:00; Status UNV Non-Formulary Medication (Budesonide/ Formoterol Fumarate (Symbicort 160-4.5 Mcg Inhaler)) 2 puff BID IH ; Start 11/11/19 at 09:00; Status UNV Vitamin D (Vitamin D3) 2,000 unit DAILY PO ; Start 11/11/19 at 09:00 Fish Oil (Fish Oil) 1,000 mg DAILY PO ; Start 11/11/19 at 09:00 Info (Anti-Coagulation Monitoring By Pharmacy) 1 each PRN DAILY PRN MC SEE COMMENTS; Start 11/11/19 at 08:00 Albuterol Sulfate (Ventolin Neb Soln) 2.5 mg Q6HRS NEB ; Start 11/11/19 at 08:00 Budesonide (Pulmicort) 0.5 mg RTBID NEB ; Start 11/11/19 at 08:15 Active Scripts Active Reported Fish Oil 1,000 mg Softgel ([place]-3/Dha/Epa/Fish Oil) 1,000 Mg Capsule 1,000 Mg PO DAILY Sucralfate 1 Gm Tablet 1 Gm PO QID Vitamin D3 (Cholecalciferol (Vitamin D3)) 10 Mcg Tablet 2,000 Units PO DAILY Mandi-Debbie Tablet (Folic Acid/Vitamin B Comp W-C) 0.8 Mg Tablet 0.8 Mg PO DAILY Isosorbide Mononitrate Er (Isosorbide Mononitrate) 30 Mg Tab.er.24h 30 Mg PO BID Eliquis (Apixaban) 2.5 Mg Tablet 2.5 Mg PO BID [place] 5-325 Tablet (Acetaminophen/Hydrocodone Bitart) 1 Each Tablet 1 Tab PO Q6- 8HRS PRN Benadryl (Diphenhydramine Hcl) 25 Mg Capsule 50 Mg PO PRN Q6HRS PRN Xanax (Alprazolam) 0.5 Mg Tablet 0.5 Mg PO PRN Q6HRS PRN Flomax (Tamsulosin Hcl) 0.4 Mg Cap.er.24h 0.4 Mg PO BID Simvastatin 20 Mg Tablet 30 Mg PO HS Pantoprazole Sodium (Pantoprazole Sodium) 40 Mg Tablet.dr 40 Mg PO BID Carvedilol (Carvedilol) 6.25 Mg Tablet 6.25 Mg PO BIDWMEALS Bupropion Xl (Bupropion Hcl) 150 Mg Tab.er.24h 150 Mg PO QAM Symbicort 160-4.5 Mcg Inhaler (Budesonide/Formoterol Fumarate) 10.2 Gm Hfa.aer.ad 2 Puff IH BID Ventolin Hfa Inhaler (Albuterol Sulfate) 18 Gm Hfa.aer.ad 2 Puff INH QID Vitals/I & O Vital Sign - Last 24 Hours 11/10/19 11/10/19 11/10/19 11/10/19 14:48 15:14 15:55 16:07 Temp 102.5 104.2 99.4 102.5 104.2 99.4 Pulse 105 96 Resp 24 24 B/P (MAP) 187/77 (113) 204/85 (124) 191/80 (117) Pulse Ox 93 94 O2 Delivery Room Air Room Air 11/10/19 11/10/19 11/10/19 11/10/19 16:15 16:53 17:15 17:45 Pulse 90 92 80 78 Resp 20 20 20 20 B/P (MAP) 157/70 (99) 164/70 (101) 148/67 (94) 145/65 (91) Pulse Ox 93 93 93 95 O2 Delivery Room Air Room Air Room Air Room Air 11/10/19 11/10/19 11/10/19 11/10/19 18:15 19:45 20:00 23:49 Temp 98.2 97.8 98.2 97.8 Pulse 76 76 68 Resp 20 20 23 B/P (MAP) 146/65 (92) 149/95 (113) 132/63 (86) Pulse Ox 94 95 99 O2 Delivery Room Air Room Air Nasal Cannula Nasal Cannula O2 Flow Rate 2.0 2.0 11/11/19 03:27 Temp 98.3 98.3 Pulse 66 B/P (MAP) 143/64 (90) Pulse Ox 99 O2 Delivery Nasal Cannula O2 Flow Rate 2.0 Intake and Output 11/10/19 11/10/19 11/11/19 15:00 23:00 07:00 Intake Total 1300 ml 400 ml Output Total 100 ml Balance 1300 ml 300 ml Justicifation of Admission Dx: Justifications for Admission: Justification of Admission Dx: Yes TANVIR CARRASCO MD Nov 11, 2019 08:57
[2019-11-11] MEDS ORDERED: NON FORMULARY ITEM (Albuterol Sulfate (Ventolin Hfa Inhaler) 2 PUFF) INH SCH (09:00)
[2019-11-11] MEDS: ISOSORBIDE MONONITRATE ER 30 MG TAB.ER.24H PO SCH ×2 (09:00→20:29)
[2019-11-11] MEDS ORDERED: NON FORMULARY ITEM (Budesonide/Formoterol Fumarate (Symbicort 160-4.5 Mcg Inhaler) 2 PUFF) IH SCH (09:00)
[2019-11-11] MEDS: CHOLECALCIFEROL (VITAMIN D3) 1,000 UNIT TABLET PO SCH (09:46)
[2019-11-11] MEDS: ALBUTEROL SULFATE 8GM INHALER. INH SCH ×4 (09:46→20:28)
[2019-11-11] MEDS: FOLIC/VIT B COMP W-C (RENAL) TABLET. PO SCH (09:46)
[2019-11-11] MEDS: buPROPion XL 150 MG TAB.ER.24H. PO SCH (09:46)
[2019-11-11] MEDS: TAMSULOSIN 0.4 MG CAP.ER.24H. PO SCH ×2 (09:47→20:29)
[2019-11-11] MEDS: APIXABAN 2.5 MG TABLET. PO SCH ×2 (09:47→20:29)
[2019-11-11] MEDS: PANTOPRAZOLE 40 MG TABLET.DR. PO SCH ×2 (09:47→16:02)
[2019-11-11] MEDS: SUCRALFATE 1 GM TABLET. PO SCH ×4 (09:47→20:28)
[2019-11-11] MEDS: HYDROcodone/APAP 5/325MG 1 TAB TABLET PO PRN ×2 (09:47→16:03)
--- NOTE | 2019-11-11 09:47 | PDOC2 ---
GI CONSULT Date of Service: DATE: 11/11/19 TIME: 09:47 Reason For Consult: nausea, vomiting, diarrhea, abnormal CT HPI: HPI: 79 y/o male who had an upset stomach yesterday and had to stop dialysis earlier for this reason. Afterward he had some vomiting and diarrhea. He went home and then doesn't remember much til this morning when he woke up in the hospital. Says he had a fever of 104. Per nurse - reports fairly recent EGD w/ hernia, gastritis, and and an ulcer. Started on pantoprazole, then Carafate earlier this year. Chart lists h/o Rios's. He says he had a colonoscopy years ago and doesn't want any more scopes. H/o ACD. He denies hematemesis, hematochezia, melena. Never had abd pain. Tolerating clears but not interested in eating more yet. H/o A Flutter on Eliquis. Additional h/o prostate cancer. Noted /w pancytopenia and elevated LFTs. Thickening in descending and sigmoid colon on CT. PMH: PMH: CHF, HTN, A flutter, ESRD on HD, prostate cancer, HLD, AAA, UTI left inguinal hernia repair, cataract removal FH: Family History: No pertinent hx Social History: Smoke: <1 pack per day ALCOHOL: none Drugs: None ROS: GEN: +fevers HEENT: Denies blurred vision, sore throat CV: Denies chest pain RESP: Denies shortness of air, cough GI: Per HPI : Denies hematuria, dysuria ENDO: Denies weight changes NEURO: +confusion MSK: Denies weakness, joint pain/swelling SKIN: Denies jaundice, pruritus Vitals: Vitals: Vital Signs Date Time Temp Pulse Resp B/P (MAP) Pulse Ox O2 Delivery O2 Flow Rate FiO2 11/11/19 07:00 97.6 70 17 109/56 (73) 98 Nasal Cannula 2.0 97.6 Labs: Labs: Laboratory Tests Test 11/10/19 15:00 11/10/19 15:07 11/11/19 00:10 White Blood Count 2.1 x10^3/uL (4.0-11.0) Red Blood Count 3.27 x10^6/uL (4.30-5.70) Hemoglobin 11.0 g/dL (13.0-17.5) Hematocrit 32.0 % (39.0-53.0) Mean Corpuscular Volume 98 fL (79-100) Mean Corpuscular Hemoglobin 34 pg (25-35) Mean Corpuscular Hemoglobin Concent 34 g/dL (31-37) Red Cell Distribution Width 15.6 % (11.5-14.5) Platelet Count 91 x10^3/uL (140-400) Neutrophils (%) (Auto) 95 % (31-73) Lymphocytes (%) (Auto) 4 % (24-48) Monocytes (%) (Auto) 0 % (0-9) Eosinophils (%) (Auto) 1 % (0-3) Basophils (%) (Auto) 0 % (0-3) Neutrophils # (Auto) 1.9 x10^3/uL (1.8-7.7) Lymphocytes # (Auto) 0.1 x10^3/uL (1.0-4.8) Monocytes # (Auto) 0.0 x10^3/uL (0.0-1.1) Eosinophils # (Auto) 0.0 x10^3/uL (0.0-0.7) Basophils # (Auto) 0.0 x10^3/uL (0.0-0.2) Segmented Neutrophils % 82 % (35-66) Band Neutrophils % 6 % (0-9) Lymphocytes % 10 % (24-48) Metamyelocytes % 2 % (0-0) Toxic Vacuolation Slight Platelet Estimate Decreased (ADEQUATE) Target Cells Sodium Level 142 mmol/L (136-145) Potassium Level 3.0 mmol/L (3.5-5.1) Chloride Level 105 mmol/L (98-107) Carbon Dioxide Level 29 mmol/L (21-32) Anion Gap 8 (6-14) Blood Urea Nitrogen 24 mg/dL (8-26) Creatinine 3.2 mg/dL (0.7-1.3) Estimated GFR (Cockcroft-Gault) 18.9 BUN/Creatinine Ratio 8 (6-20) Glucose Level 71 mg/dL (70-99) Lactic Acid Level 2.2 mmol/L (0.4-2.0) 1.8 mmol/L (0.4-2.0) Calcium Level 8.1 mg/dL (8.5-10.1) Total Bilirubin 1.1 mg/dL (0.2-1.0) Aspartate Amino Transf (AST/SGOT) 291 U/L (15-37) Alanine Aminotransferase (ALT/SGPT) 187 U/L (16-63) Alkaline Phosphatase 207 U/L (46-116) Troponin I Quantitative 0.046 ng/mL (0.000-0.055) Total Protein 5.3 g/dL (6.4-8.2) Albumin 2.2 g/dL (3.4-5.0) Albumin/Globulin Ratio 0.7 (1.0-1.7) Lipase 40 U/L (73-393) Urine Collection Type U cath Urine Color Yellow Urine Clarity Clear Urine pH 8.0 (<5.0-8.0) Urine Specific [place] 1.010 (1.000-1.030) Urine Protein >=300 mg/dL (NEG-TRACE) Urine Glucose (UA) Negative mg/dL (NEG) Urine Ketones (Stick) Negative mg/dL (NEG) Urine Blood Small (NEG) Urine Nitrite Negative (NEG) Urine Bilirubin Negative (NEG) Urine Urobilinogen Dipstick 0.2 mg/dL (0.2 mg/dL) Urine Leukocyte Esterase Negative (NEG) Urine RBC 6-10 /HPF (0-2) Urine WBC Rare /HPF (0-4) Urine Squamous Epithelial Cells Occ /LPF Urine Bacteria 0 /HPF (0-FEW) Allergies: Coded Allergies: regadenoson (Verified Allergy, Severe, Anaphylaxis, 06/07/19) Iodinated Contrast Media (Verified Allergy, Intermediate, 06/07/19) Nitrofuran Analogues (Verified Allergy, Intermediate, rash, 06/07/19) bumetanide (Verified Allergy, Intermediate, 11/11/19) CKD chlorothiazide (Verified Allergy, Intermediate, 11/11/19) CKD dutasteride (Verified Allergy, Intermediate, rash, 06/07/19) finasteride (Verified Allergy, Intermediate, hives, 06/07/19) furosemide (Verified Allergy, Intermediate, 11/11/19) CKD hydrochlorothiazide (Verified Allergy, Intermediate, 11/11/19) CKD spironolactone (Verified Allergy, Intermediate, 11/11/19) CKD NSAIDS (Non-Steroidal Anti-Inflamma (Verified Adverse Reaction, Intermediate, 06/07/19) CKD Medications: Current Medications Medications (Trade) Dose Ordered Sig/Diane Route PRN Reason Start Time Stop Time Status Last Admin Dose Admin Ceftriaxone Sodium (Rocephin) 1 gm 1X ONCE IVP 11/10/19 14:45 11/10/19 14:46 DC 11/10/19 14:59 Acetaminophen (Tylenol Supp) 650 mg 1X ONCE IN 11/10/19 15:00 11/10/19 15:11 DC 11/10/19 15:01 Sodium Chloride 1,000 ml @ 1,000 mls/hr 1X ONCE IV 11/10/19 17:30 11/10/19 18:46 DC 11/10/19 17:30 Piperacillin Sod/ Tazobactam Sod 2.25 gm/Sodium Chloride 50 ml @ 100 mls/hr Q8HRS IV 11/10/19 22:00 11/11/19 05:32 Potassium Chloride (Klor-Con) 40 meq 1X ONCE PO 11/10/19 21:30 11/10/19 21:31 DC 11/10/19 21:35 Imaging: Imaging: CXR IMPRESSION: * Mild patchy interstitial opacities bilaterally which can be seen with mild edema or interstitial infiltrate. CT A/P IMPRESSION: 1. Mild diffuse wall thickening involving the descending and sigmoid colon, favored represent colitis, may be infectious or inflammatory. 2. Small bilateral pleural effusions Head CT Impression: 1. There is mild supratentorial atrophy greater of the parietal lobes. At least mild ill-defined low-density of the supratentorial parenchyma is nonspecific, more commonly due to chronic microvascular ischemic disease in a patient this age. PE: GEN: NAD HEENT: Atraumatic, PERRL LUNGS: CTAB HEART: RRR ABD: NABS, S/ND/NT EXTREMITY: No edema SKIN: No rashes, no jaundice NEURO/PSYCH: A & O 3, probably a bit forgetful A/P: A/P: N/v, diarrhea, confusion, fever Pancytopenia (h/o ACD), elevated LFTs, hypokalemia Abnormal CT - ?left colitis ?Rios's/?PUD - on PPI and Carafate CRC screen - colonoscopy in the past, says he doesn't want any more 'scopes H/o A Flutter, ESRD, prostate cancer R/o COVID-19 -- Reviewed w/ Dr. Morales: Will ask for hematology opinion re: pancytopenia. Check Hepatitis panel and liver US, monitor LFTs. Check stool studies. PPI for ?ulcer/Rios's history, Carafate okay as well. Okay to try ADAT per GI - he's not ready yet. AIMEE WATERS Nov 11, 2019 09:47
[2019-11-11] MEDS: OMEGA-3 FATTY ACIDS/FISH OIL 1,000 MG CAPSULE. PO SCH (09:48)
--- NOTE | 2019-11-11 10:26 | NUR ---
Nebulizer txs being held while pt is PUI status CHolmesRRT
[2019-11-11 11:00] VITALS: BP 136/62
--- NOTE | 2019-11-11 11:06 | NUR ---
Brenna and Coreg held this morning. BP 109/56 and pt is going to dialysis today.
--- NOTE | 2019-11-11 11:09 | CONS ---
DATE OF CONSULTATION: PULMONARY CONSULTATION REASON FOR CONSULTATION: COPD. HISTORY OF PRESENT ILLNESS: The patient is a 79-year-old male who has history of end-stage renal disease, on hemodialysis. He was brought into the hospital with some nausea, vomiting and diarrhea. The patient states he has no significant cough. He had a fever of 104 yesterday. The patient smoked for about 40-45 years, down to 4 cigarettes a day. No history of deep vein thrombosis or pulmonary embolism. He is not on home oxygen. He had a chest x-ray done, which was reviewed by me. There were some slight prominent interstitial markings. He had a CT abdomen and pelvis on the as well, which showed diffuse wall thickening involving the descending and sigmoid colon suggesting colitis and small basilar effusions. I have been asked to see him for further evaluation, currently on room air. PAST MEDICAL HISTORY: Significant for end-stage renal disease, on hemodialysis, hyperlipidemia, hypertension, suspected COPD, smoked for 40 years. History of atrial fibrillation, hernia repair, atrial flutter, esophagitis, gastritis, tonsillectomy and tobacco abuse. PAST SURGICAL HISTORY: As above. ALLERGIES: NONSTEROIDALS, NITROFURANTOIN, DIURETICS AND FINASTERIDE. FAMILY HISTORY: Coronary artery disease. SOCIAL HISTORY: Smoker for 40 years, down to 4 cigarettes a day. MEDICATIONS: All reviewed as listed in the MRAD including bronchodilators and antibiotics. REVIEW OF SYSTEMS: Twelve-point system obtained. Pertinent positives discussed in my history of present illness, otherwise noncontributory. All systems that were negative were reviewed as well. PHYSICAL EXAMINATION: GENERAL: He is in no obvious respiratory distress. VITAL SIGNS: Pulse ox 98% on 2 liters. However, he is off of oxygen right now, T-max of 104 degrees Fahrenheit yesterday. Afebrile today. Blood [id number] systolic. HEENT: Visual exam done due to COVID pandemia. No obvious respiratory distress. No paradoxical breathing. SKIN: No skin rash. LABORATORY DATA: Reviewed. White cell count 2.1, hemoglobin 11.0 and platelets are 91. BUN 24 and a creatinine of 3.2. Albumin 2.2. IMPRESSION: 1. High-grade fever up to 104 degrees Fahrenheit with leukopenia. Concerning for viral infection such as COVID-19. No focus of infection in the lungs. 2. Long history of tobacco use for 40+ years and he still smokes cigarettes. Likely underlying chronic obstructive pulmonary disease without exacerbation. 3. Abnormal CT abdomen and pelvis consistent with colitis. GI is following. 4. Severe protein-calorie malnutrition. 5. Abnormal LFTs, could be related to COVID-19 infection. RECOMMENDATIONS: 1. Continue oxygen at 2 liters, keep saturation 94 and above. 2. Follow all cultures. COVID-19 testing is pending. 3. Continue COVID isolation until ruled out. 4. Follow LFTs. 5. Improve nutritional status. 6. Follow GI recommendations. 7. Continue with present inhalers. Once COVID ruled out nebulizers can be initiated. 8. Anticoagulation with Eliquis per PCP for AFib. 9. Antibiotics per Infectious Disease. 10. Discussed with RN. We will follow along with you. SUSANNA ARNETT MD DR: TRACIE/stephanie JOB#: [id number] / [id number] LILLY
--- NOTE | 2019-11-11 11:40 | PDOC2 ---
CONSULT Date of Consult Date of Consult DATE: 11/11/19 TIME: 11:35 Reason for Consult Reason for Consult: ESRD Referring Physician Referring Physician: IRVING Identification/Chief Complaint Chief Complaint N/V/ABD PAIN Source Source: Chart review, Patient History of Present Illness Reason for Visit: THIS IS A 79 YR OLD PT WITH ESRD. HAS OP HD ON TTS. UNABLE TO COMPLETE HIS HD YESTERDAY DUE TO N/V/D AND ABD PAIN. ALSO HAD FEVER. CURRENTLY A PUI FOR COVID 19. ALSO HAS SOME SOB BUT THIS IS CHRONIC AND HE HAS COPD FROM TOBACCOISM. ? OF COLIITS. LABS ARE C/W HIS ESRD STATUS. Past Medical History Cardiovascular: HTN Pulmonary: COPD GI: Constipation Heme/Onc: Anemia NOS Renal/: Chronic renal failure Endocrine: Hyperparathyroidism Family History Family History: Hypertension Social History ALCOHOL: none Drugs: None Lives: with Family Current Problem List Problem List Problems Medical Problems: (1) Colitis Status: Acute (2) Delirium Status: Acute (3) Sepsis Status: Acute Current Medications Current Medications Current Medications Ceftriaxone Sodium (Rocephin) 1 gm 1X ONCE IVP Last administered on 11/10/19at 14:59; Start 11/10/19 at 14:45; Stop 11/10/19 at 14:46; Status DC Acetaminophen (Tylenol Supp) 650 mg 1X ONCE VA Last administered on 11/10/19at 15:01; Start 11/10/19 at 15:00; Stop 11/10/19 at 15:11; Status DC Sodium Chloride 1,000 ml @ 1,000 mls/hr 1X ONCE IV Last administered on 11/10/19at 17:30; Start 11/10/19 at 17:30; Stop 11/10/19 at 18:46; Status DC Piperacillin Sod/ Tazobactam Sod (Zosyn Per Pharmacy) 1 each PRN DAILY PRN MC SEE COMMENTS; Start 11/10/19 at 20:00 Piperacillin Sod/ Tazobactam Sod 2.25 gm/Sodium Chloride 50 ml @ 100 mls/hr Q8HRS IV Last administered on 11/11/19at 05:32; Start 11/10/19 at 22:00 Potassium Chloride (Klor-Con) 40 meq 1X ONCE PO Last administered on 11/10/19at 21:35; Start 11/10/19 at 21:30; Stop 11/10/19 at 21:31; Status DC Alprazolam (Xanax) 0.5 mg PRN Q6HRS PRN PO ANXIETY / AGITATION; Start 11/11/19 at 07:30 Apixaban (Eliquis) 2.5 mg BID PO Last administered on 11/11/19 09:47; Start 11/11/19 at 09:00 Bupropion HCl (Wellbutrin Xl) 150 mg DAILY PO Last administered on 11/11/19 09:46; Start 11/11/19 at 09:00 Carvedilol (Coreg) 6.25 mg BIDWMEALS PO ; Start 11/11/19 at 08:00 Vitamin B Complex/ Vitamin C (Mandi-Debbie) 1 tab DAILY PO Last administered on 11/11/19 09:46; Start 11/11/19 at 09:00 Acetaminophen/ Hydrocodone Bitart (Lortab 5/325) 1 tab QIDPRN PRN PO MODERATE PAIN Last administered on 11/11/19 09:47; Start 11/11/19 at 07:30 Isosorbide Mononitrate (Imdur) 30 mg BID PO ; Start 11/11/19 at 09:00 Pantoprazole Sodium (Protonix) 40 mg BIDAC PO Last administered on 11/11/19 09:47; Start 11/11/19 at 08:00 Simvastatin (Zocor) 30 mg QHS PO ; Start 11/11/19 at 21:00 Sucralfate (Carafate) 1 gm QIDACHS PO Last administered on 11/11/19 09:47; Start 11/11/19 at 08:00 Tamsulosin HCl (Flomax) 0.4 mg BID PO Last administered on 11/11/19 09:47; Start 11/11/19 at 09:00 Non-Formulary Medication (Albuterol Sulfate (Ventolin Hfa Inhaler)) 2 puff QID INH ; Start 11/11/19 at 09:00; Status UNV Non-Formulary Medication (Budesonide/ Formoterol Fumarate (Symbicort 160-4.5 Mcg Inhaler)) 2 puff BID IH ; Start 11/11/19 at 09:00; Status UNV Vitamin D (Vitamin D3) 2,000 unit DAILY PO Last administered on 8/14/20at 09:46; Start 11/11/19 at 09:00 Fish Oil (Fish Oil) 1,000 mg DAILY PO Last administered on 11/11/19at 09:48; Start 11/11/19 at 09:00 Info (Anti-Coagulation Monitoring By Pharmacy) 1 each PRN DAILY PRN MC SEE COMMENTS; Start 11/11/19 at 08:00 Albuterol Sulfate (Ventolin Neb Soln) 2.5 mg Q6HRS NEB ; Start 11/11/19 at 08:00 Budesonide (Pulmicort) 0.5 mg RTBID NEB ; Start 11/11/19 at 08:15 Albuterol Sulfate (Ventolin Hfa) 1 puff RTQID INH Last administered on 11/11/19at 09:46; Start 11/11/19 at 09:15 Active Scripts Active Reported Fish Oil 1,000 mg Softgel (Doyle-3/Dha/Epa/Fish Oil) 1,000 Mg Capsule 1,000 Mg PO DAILY Sucralfate 1 Gm Tablet 1 Gm PO QID Vitamin D3 (Cholecalciferol (Vitamin D3)) 10 Mcg Tablet 2,000 Units PO DAILY Mandi-Debbie Tablet (Folic Acid/Vitamin B Comp W-C) 0.8 Mg Tablet 0.8 Mg PO DAILY Isosorbide Mononitrate Er (Isosorbide Mononitrate) 30 Mg Tab.er.24h 30 Mg PO BID Eliquis (Apixaban) 2.5 Mg Tablet 2.5 Mg PO BID [place] 5-325 Tablet (Acetaminophen/Hydrocodone Bitart) 1 Each Tablet 1 Tab PO Q6- 8HRS PRN Benadryl (Diphenhydramine Hcl) 25 Mg Capsule 50 Mg PO PRN Q6HRS PRN Xanax (Alprazolam) 0.5 Mg Tablet 0.5 Mg PO PRN Q6HRS PRN Flomax (Tamsulosin Hcl) 0.4 Mg Cap.er.24h 0.4 Mg PO BID Simvastatin 20 Mg Tablet 30 Mg PO HS Pantoprazole Sodium (Pantoprazole Sodium) 40 Mg Tablet.dr 40 Mg PO BID Carvedilol (Carvedilol) 6.25 Mg Tablet 6.25 Mg PO BIDWMEALS Bupropion Xl (Bupropion Hcl) 150 Mg Tab.er.24h 150 Mg PO QAM Symbicort 160-4.5 Mcg Inhaler (Budesonide/Formoterol Fumarate) 10.2 Gm Hfa.aer.ad 2 Puff IH BID Ventolin Hfa Inhaler (Albuterol Sulfate) 18 Gm Hfa.aer.ad 2 Puff INH QID Allergies Allergies: Coded Allergies: regadenoson (Verified Allergy, Severe, Anaphylaxis, 06/07/19) Iodinated Contrast Media (Verified Allergy, Intermediate, 06/07/19) Nitrofuran Analogues (Verified Allergy, Intermediate, rash, 06/07/19) bumetanide (Verified Allergy, Intermediate, 11/11/19) CKD chlorothiazide (Verified Allergy, Intermediate, 11/11/19) CKD dutasteride (Verified Allergy, Intermediate, rash, 06/07/19) finasteride (Verified Allergy, Intermediate, hives, 06/07/19) furosemide (Verified Allergy, Intermediate, 11/11/19) CKD hydrochlorothiazide (Verified Allergy, Intermediate, 11/11/19) CKD spironolactone (Verified Allergy, Intermediate, 11/11/19) CKD NSAIDS (Non-Steroidal Anti-Inflamma (Verified Adverse Reaction, Intermediate, 06/07/19) CKD ROS General: YES: Fatigue, Malaise, Appetite PSYCHOLOGICAL ROS: YES: Anxiety Eyes: Yes Decreased vision HEENT: YES: Heacaches Gastrointestinal: Yes Nausea, Yes Vomiting, Yes Abdominal Pain, Yes Diarrhea Genitourinary: YES Other (ANURIA) Musculoskeletal: Yes Muscular Weakness Neurological: Yes Weakness Skin: Yes Dry Skin Physical Exam General: Alert, Oriented X3, Cooperative, No acute distress HEENT: Atraumatic, PERRLA Lungs: Clear to auscultation Heart: Regular rate Abdomen: Normal bowel sounds, Soft, No tenderness Extremities: No clubbing, No cyanosis Skin: No breakdown Neuro: Normal speech Psych/Mental Status: Mental status NL, Mood NL MUSCULOSKELETAL: No joint tenderness, No deformity, No swelling Vitals VITALS Vital Signs Date Time Temp Pulse Resp B/P (MAP) Pulse Ox O2 Delivery O2 Flow Rate FiO2 11/11/19 10:47 17 Room Air 11/11/19 09:47 98 2.0 11/11/19 09:00 70 109/56 11/11/19 07:00 97.6 97.6 Labs Labs Laboratory Tests Test 11/10/19 15:00 11/10/19 15:07 11/11/19 00:10 White Blood Count 2.1 x10^3/uL (4.0-11.0) Red Blood Count 3.27 x10^6/uL (4.30-5.70) Hemoglobin 11.0 g/dL (13.0-17.5) Hematocrit 32.0 % (39.0-53.0) Mean Corpuscular Volume 98 fL (79-100) Mean Corpuscular Hemoglobin 34 pg (25-35) Mean Corpuscular Hemoglobin Concent 34 g/dL (31-37) Red Cell Distribution Width 15.6 % (11.5-14.5) Platelet Count 91 x10^3/uL (140-400) Neutrophils (%) (Auto) 95 % (31-73) Lymphocytes (%) (Auto) 4 % (24-48) Monocytes (%) (Auto) 0 % (0-9) Eosinophils (%) (Auto) 1 % (0-3) Basophils (%) (Auto) 0 % (0-3) Neutrophils # (Auto) 1.9 x10^3/uL (1.8-7.7) Lymphocytes # (Auto) 0.1 x10^3/uL (1.0-4.8) Monocytes # (Auto) 0.0 x10^3/uL (0.0-1.1) Eosinophils # (Auto) 0.0 x10^3/uL (0.0-0.7) Basophils # (Auto) 0.0 x10^3/uL (0.0-0.2) Segmented Neutrophils % 82 % (35-66) Band Neutrophils % 6 % (0-9) Lymphocytes % 10 % (24-48) Metamyelocytes % 2 % (0-0) Toxic Vacuolation Slight Platelet Estimate Decreased (ADEQUATE) Target Cells Sodium Level 142 mmol/L (136-145) Potassium Level 3.0 mmol/L (3.5-5.1) Chloride Level 105 mmol/L (98-107) Carbon Dioxide Level 29 mmol/L (21-32) Anion Gap 8 (6-14) Blood Urea Nitrogen 24 mg/dL (8-26) Creatinine 3.2 mg/dL (0.7-1.3) Estimated GFR (Cockcroft-Gault) 18.9 BUN/Creatinine Ratio 8 (6-20) Glucose Level 71 mg/dL (70-99) Lactic Acid Level 2.2 mmol/L (0.4-2.0) 1.8 mmol/L (0.4-2.0) Calcium Level 8.1 mg/dL (8.5-10.1) Total Bilirubin 1.1 mg/dL (0.2-1.0) Aspartate Amino Transf (AST/SGOT) 291 U/L (15-37) Alanine Aminotransferase (ALT/SGPT) 187 U/L (16-63) Alkaline Phosphatase 207 U/L (46-116) Troponin I Quantitative 0.046 ng/mL (0.000-0.055) Total Protein 5.3 g/dL (6.4-8.2) Albumin 2.2 g/dL (3.4-5.0) Albumin/Globulin Ratio 0.7 (1.0-1.7) Lipase 40 U/L (73-393) Urine Collection Type U cath Urine Color Yellow Urine Clarity Clear Urine pH 8.0 (<5.0-8.0) Urine Specific [place] 1.010 (1.000-1.030) Urine Protein >=300 mg/dL (NEG-TRACE) Urine Glucose (UA) Negative mg/dL (NEG) Urine Ketones (Stick) Negative mg/dL (NEG) Urine Blood Small (NEG) Urine Nitrite Negative (NEG) Urine Bilirubin Negative (NEG) Urine Urobilinogen Dipstick 0.2 mg/dL (0.2 mg/dL) Urine Leukocyte Esterase Negative (NEG) Urine RBC 6-10 /HPF (0-2) Urine WBC Rare /HPF (0-4) Urine Squamous Epithelial Cells Occ /LPF Urine Bacteria 0 /HPF (0-FEW) Laboratory Tests Test 11/10/19 15:00 11/10/19 15:07 11/11/19 00:10 White Blood Count 2.1 x10^3/uL (4.0-11.0) Red Blood Count 3.27 x10^6/uL (4.30-5.70) Hemoglobin 11.0 g/dL (13.0-17.5) Hematocrit 32.0 % (39.0-53.0) Mean Corpuscular Volume 98 fL (79-100) Mean Corpuscular Hemoglobin 34 pg (25-35) Mean Corpuscular Hemoglobin Concent 34 g/dL (31-37) Red Cell Distribution Width 15.6 % (11.5-14.5) Platelet Count 91 x10^3/uL (140-400) Neutrophils (%) (Auto) 95 % (31-73) Lymphocytes (%) (Auto) 4 % (24-48) Monocytes (%) (Auto) 0 % (0-9) Eosinophils (%) (Auto) 1 % (0-3) Basophils (%) (Auto) 0 % (0-3) Neutrophils # (Auto) 1.9 x10^3/uL (1.8-7.7) Lymphocytes # (Auto) 0.1 x10^3/uL (1.0-4.8) Monocytes # (Auto) 0.0 x10^3/uL (0.0-1.1) Eosinophils # (Auto) 0.0 x10^3/uL (0.0-0.7) Basophils # (Auto) 0.0 x10^3/uL (0.0-0.2) Segmented Neutrophils % 82 % (35-66) Band Neutrophils % 6 % (0-9) Lymphocytes % 10 % (24-48) Metamyelocytes % 2 % (0-0) Toxic Vacuolation Slight Platelet Estimate Decreased (ADEQUATE) Target Cells Sodium Level 142 mmol/L (136-145) Potassium Level 3.0 mmol/L (3.5-5.1) Chloride Level 105 mmol/L (98-107) Carbon Dioxide Level 29 mmol/L (21-32) Anion Gap 8 (6-14) Blood Urea Nitrogen 24 mg/dL (8-26) Creatinine 3.2 mg/dL (0.7-1.3) Estimated GFR (Cockcroft-Gault) 18.9 BUN/Creatinine Ratio 8 (6-20) Glucose Level 71 mg/dL (70-99) Lactic Acid Level 2.2 mmol/L (0.4-2.0) 1.8 mmol/L (0.4-2.0) Calcium Level 8.1 mg/dL (8.5-10.1) Total Bilirubin 1.1 mg/dL (0.2-1.0) Aspartate Amino Transf (AST/SGOT) 291 U/L (15-37) Alanine Aminotransferase (ALT/SGPT) 187 U/L (16-63) Alkaline Phosphatase 207 U/L (46-116) Troponin I Quantitative 0.046 ng/mL (0.000-0.055) Total Protein 5.3 g/dL (6.4-8.2) Albumin 2.2 g/dL (3.4-5.0) Albumin/Globulin Ratio 0.7 (1.0-1.7) Lipase 40 U/L (73-393) Urine Collection Type U cath Urine Color Yellow Urine Clarity Clear Urine pH 8.0 (<5.0-8.0) Urine Specific [place] 1.010 (1.000-1.030) Urine Protein >=300 mg/dL (NEG-TRACE) Urine Glucose (UA) Negative mg/dL (NEG) Urine Ketones (Stick) Negative mg/dL (NEG) Urine Blood Small (NEG) Urine Nitrite Negative (NEG) Urine Bilirubin Negative (NEG) Urine Urobilinogen Dipstick 0.2 mg/dL (0.2 mg/dL) Urine Leukocyte Esterase Negative (NEG) Urine RBC 6-10 /HPF (0-2) Urine WBC Rare /HPF (0-4) Urine Squamous Epithelial Cells Occ /LPF Urine Bacteria 0 /HPF (0-FEW) Assessment/Plan Assessment/Plan IMP ESRD ANEMIA COLITS FEVER COPD ABNORMAL LFTS PLAN PUI COVID 19 XIOMARA WHEN NEEDED FEVER EVALUATION HD TOMORROW WILL FOLLOW FRANKIE IRELAND MD Nov 11, 2019 11:40
[2019-11-11 15:00] VITALS: BP 132/64
[2019-11-11] MEDS: ANTI-COAG MONITOR BY PHARMACY. MC PRN (15:46)
--- NOTE | 2019-11-11 15:55 | PDOC2 ---
CONSULT Date of Consult Date of Consult DATE: 11/11/19 TIME: 15:47 Reason for Consult Reason for Consult: Pancytopenia Referring Physician Referring Physician: Dr. Morales Identification/Chief Complaint Chief Complaint Fever Problems: (1) Pancytopenia Source Source: Chart review, Patient History of Present Illness Reason for Visit: Charles Leal is a 79-year-old male with end-stage renal disease who has been admitted to the hospital with fever. Patient reports that he was at dialysis yesterday and had not been feeling well. He had 1 hard bowel movement. He reports feeling feverish. He asked for dialysis to be stopped and then subsequently went home. Patient reports that after he went home he developed fever with temperature of 104. He is also recently started having diarrhea with mucoid bowel movements. He also notes associated nausea and vomiting. He denies hematemesis or melena or hematochezia. Since his admission to the hospital he has been managed empirically for sepsis of unknown origin. COVID-19 testing has been requested. He has also received a chest x-ray which showed mild patchy bilateral infiltrates. He is also received a CT of the abdomen and pelvis which showed colitis. Hematology has been consulted due to pancytopenia. Review review of his prior labs shows normocytic anemia consistent with his history of ESRD. Lymphopenia and thrombocytopenia are acute. Past Medical History Cardiovascular: HTN Pulmonary: COPD GI: Constipation Heme/Onc: Anemia NOS Renal/: Chronic renal failure Endocrine: Hyperparathyroidism Family History Family History: Hypertension Social History <1 pack per day ALCOHOL: none Drugs: None Lives: with Family Current Problem List Problem List Problems Medical Problems: (1) Colitis Status: Acute (2) Delirium Status: Acute (3) Sepsis Status: Acute Current Medications Current Medications Current Medications Ceftriaxone Sodium (Rocephin) 1 gm 1X ONCE IVP Last administered on 11/10/19at 14:59; Start 11/10/19 at 14:45; Stop 11/10/19 at 14:46; Status DC Acetaminophen (Tylenol Supp) 650 mg 1X ONCE IA Last administered on 11/10/19at 15:01; Start 11/10/19 at 15:00; Stop 11/10/19 at 15:11; Status DC Sodium Chloride 1,000 ml @ 1,000 mls/hr 1X ONCE IV Last administered on 11/10/19at 17:30; Start 11/10/19 at 17:30; Stop 11/10/19 at 18:46; Status DC Piperacillin Sod/ Tazobactam Sod (Zosyn Per Pharmacy) 1 each PRN DAILY PRN MC SEE COMMENTS; Start 11/10/19 at 20:00 Piperacillin Sod/ Tazobactam Sod 2.25 gm/Sodium Chloride 50 ml @ 100 mls/hr Q8HRS IV Last administered on 11/11/19at 14:07; Start 11/10/19 at 22:00 Potassium Chloride (Klor-Con) 40 meq 1X ONCE PO Last administered on 11/10/19at 21:35; Start 11/10/19 at 21:30; Stop 11/10/19 at 21:31; Status DC Alprazolam (Xanax) 0.5 mg PRN Q6HRS PRN PO ANXIETY / AGITATION; Start 11/11/19 at 07:30 Apixaban (Eliquis) 2.5 mg BID PO Last administered on 11/11/19at 09:47; Start 11/11/19 at 09:00 Bupropion HCl (Wellbutrin Xl) 150 mg DAILY PO Last administered on 11/11/19at 09:46; Start 11/11/19 at 09:00 Carvedilol (Coreg) 6.25 mg BIDWMEALS PO ; Start 11/11/19 at 08:00 Vitamin B Complex/ Vitamin C (Mandi-Debbie) 1 tab DAILY PO Last administered on 11/11/19at 09:46; Start 11/11/19 at 09:00 Acetaminophen/ Hydrocodone Bitart (Lortab 5/325) 1 tab QIDPRN PRN PO MODERATE PAIN Last administered on 11/11/19at 09:47; Start 11/11/19 at 07:30 Isosorbide Mononitrate (Imdur) 30 mg BID PO ; Start 11/11/19 at 09:00 Pantoprazole Sodium (Protonix) 40 mg BIDAC PO Last administered on 11/11/19at 09:47; Start 11/11/19 at 08:00 Simvastatin (Zocor) 30 mg QHS PO ; Start 11/11/19 at 21:00 Sucralfate (Carafate) 1 gm QIDACHS PO Last administered on 11/11/19at 14:07; Start 11/11/19 at 08:00 Tamsulosin HCl (Flomax) 0.4 mg BID PO Last administered on 11/11/19at 09:47; Start 11/11/19 at 09:00 Non-Formulary Medication (Albuterol Sulfate (Ventolin Hfa Inhaler)) 2 puff QID INH ; Start 11/11/19 at 09:00; Status UNV Non-Formulary Medication (Budesonide/ Formoterol Fumarate (Symbicort 160-4.5 Mcg Inhaler)) 2 puff BID IH ; Start 11/11/19 at 09:00; Status UNV Vitamin D (Vitamin D3) 2,000 unit DAILY PO Last administered on 11/11/19at 09:46; Start 11/11/19 at 09:00 Fish Oil (Fish Oil) 1,000 mg DAILY PO Last administered on 11/11/19at 09:48; Start 11/11/19 at 09:00 Info (Anti-Coagulation Monitoring By Pharmacy) 1 each PRN DAILY PRN [facility] SEE COMMENTS; Start 11/11/19 at 08:00 Albuterol Sulfate (Ventolin Neb Soln) 2.5 mg Q6HRS NEB ; Start 11/11/19 at 08:00; Stop 11/11/19 at 12:40; Status DC Budesonide (Pulmicort) 0.5 mg RTBID NEB ; Start 11/11/19 at 08:15; Stop 11/11/19 at 12:41; Status DC Albuterol Sulfate (Ventolin Hfa) 1 puff RTQID INH Last administered on 11/11/19at 14:07; Start 11/11/19 at 09:15 Active Scripts Active Reported Fish Oil 1,000 mg Softgel ([place]-3/Dha/Epa/Fish Oil) 1,000 Mg Capsule 1,000 Mg PO DAILY Sucralfate 1 Gm Tablet 1 Gm PO QID Vitamin D3 (Cholecalciferol (Vitamin D3)) 10 Mcg Tablet 2,000 Units PO DAILY Mandi-Debbie Tablet (Folic Acid/Vitamin B Comp W-C) 0.8 Mg Tablet 0.8 Mg PO DAILY Isosorbide Mononitrate Er (Isosorbide Mononitrate) 30 Mg Tab.er.24h 30 Mg PO BID Eliquis (Apixaban) 2.5 Mg Tablet 2.5 Mg PO BID [place] 5-325 Tablet (Acetaminophen/Hydrocodone Bitart) 1 Each Tablet 1 Tab PO Q6- 8HRS PRN Benadryl (Diphenhydramine Hcl) 25 Mg Capsule 50 Mg PO PRN Q6HRS PRN Xanax (Alprazolam) 0.5 Mg Tablet 0.5 Mg PO PRN Q6HRS PRN Flomax (Tamsulosin Hcl) 0.4 Mg Cap.er.24h 0.4 Mg PO BID Simvastatin 20 Mg Tablet 30 Mg PO HS Pantoprazole Sodium (Pantoprazole Sodium) 40 Mg Tablet.dr 40 Mg PO BID Carvedilol (Carvedilol) 6.25 Mg Tablet 6.25 Mg PO BIDWMEALS Bupropion Xl (Bupropion Hcl) 150 Mg Tab.er.24h 150 Mg PO QAM Symbicort 160-4.5 Mcg Inhaler (Budesonide/Formoterol Fumarate) 10.2 Gm Hfa.aer.ad 2 Puff IH BID Ventolin Hfa Inhaler (Albuterol Sulfate) 18 Gm Hfa.aer.ad 2 Puff INH QID Allergies Allergies: Coded Allergies: regadenoson (Verified Allergy, Severe, Anaphylaxis, 06/07/19) Iodinated Contrast Media (Verified Allergy, Intermediate, 06/07/19) Nitrofuran Analogues (Verified Allergy, Intermediate, rash, 06/07/19) bumetanide (Verified Allergy, Intermediate, 11/11/19) CKD chlorothiazide (Verified Allergy, Intermediate, 11/11/19) CKD dutasteride (Verified Allergy, Intermediate, rash, 06/07/19) finasteride (Verified Allergy, Intermediate, hives, 06/07/19) furosemide (Verified Allergy, Intermediate, 11/11/19) CKD hydrochlorothiazide (Verified Allergy, Intermediate, 11/11/19) CKD spironolactone (Verified Allergy, Intermediate, 11/11/19) CKD NSAIDS (Non-Steroidal Anti-Inflamma (Verified Adverse Reaction, Intermediate, 06/07/19) CKD ROS General: No: Chills, Night Sweats PSYCHOLOGICAL ROS: No: Anxiety, Behavioral Disorder Eyes: No Blurry vision, No Decreased vision HEENT: No: Heacaches, Visual Changes ALLERGY AND IMMUNOLOGY: No: Hives, Insect Bite Sensitivity Hematological and Lymphatic: No: Bleeding Problems, Blood Clots ENDOCRINE: No: Breast Changes, Galactorrhea Breast: No New/Changing Breast Lumps, No Nipple changes Respiratory: No: Cough, Hemoptysis Cardiovascular: No Chest Pain, No Palpitations Gastrointestinal: Yes Nausea, Yes Vomiting, Yes Abdominal Pain, Yes Diarrhea; No Melena, No Hematochezia Genitourinary: No Dysuria, No Flank Pain Musculoskeletal: No Joint Pain, No Joint Stiffness Neurological: No Behavorial Changes, No Bowel/Bladder ControlChng Skin: No Dry Skin, No Lumps Physical Exam General: Alert, Oriented X3 HEENT: Atraumatic, PERRLA Lungs: Clear to auscultation Heart: Regular rate, Normal S1 Abdomen: Normal bowel sounds, Soft, No hepatosplenomegaly Extremities: No cyanosis Skin: No rashes Neuro: Normal gait MUSCULOSKELETAL: No swelling Vitals VITALS Vital Signs Date Time Temp Pulse Resp B/P (MAP) Pulse Ox O2 Delivery O2 Flow Rate FiO2 11/11/19 11:00 95.7 73 19 136/62 (86) 97 Room Air 95.7 11/11/19 09:47 2.0 Labs Labs Laboratory Tests Test 11/10/19 15:00 11/10/19 15:07 11/11/19 00:10 11/11/19 12:10 White Blood Count 2.1 x10^3/uL (4.0-11.0) Red Blood Count 3.27 x10^6/uL (4.30-5.70) Hemoglobin 11.0 g/dL (13.0-17.5) Hematocrit 32.0 % (39.0-53.0) Mean Corpuscular Volume 98 fL (79-100) Mean Corpuscular Hemoglobin 34 pg (25-35) Mean Corpuscular Hemoglobin Concent 34 g/dL (31-37) Red Cell Distribution Width 15.6 % (11.5-14.5) Platelet Count 91 x10^3/uL (140-400) Neutrophils (%) (Auto) 95 % (31-73) Lymphocytes (%) (Auto) 4 % (24-48) Monocytes (%) (Auto) 0 % (0-9) Eosinophils (%) (Auto) 1 % (0-3) Basophils (%) (Auto) 0 % (0-3) Neutrophils # (Auto) 1.9 x10^3/uL (1.8-7.7) Lymphocytes # (Auto) 0.1 x10^3/uL (1.0-4.8) Monocytes # (Auto) 0.0 x10^3/uL (0.0-1.1) Eosinophils # (Auto) 0.0 x10^3/uL (0.0-0.7) Basophils # (Auto) 0.0 x10^3/uL (0.0-0.2) Segmented Neutrophils % 82 % (35-66) Band Neutrophils % 6 % (0-9) Lymphocytes % 10 % (24-48) Metamyelocytes % 2 % (0-0) Toxic Vacuolation Slight Platelet Estimate Decreased (ADEQUATE) Target Cells Sodium Level 142 mmol/L (136-145) Potassium Level 3.0 mmol/L (3.5-5.1) Chloride Level 105 mmol/L (98-107) Carbon Dioxide Level 29 mmol/L (21-32) Anion Gap 8 (6-14) Blood Urea Nitrogen 24 mg/dL (8-26) Creatinine 3.2 mg/dL (0.7-1.3) Estimated GFR (Cockcroft-Gault) 18.9 BUN/Creatinine Ratio 8 (6-20) Glucose Level 71 mg/dL (70-99) Lactic Acid Level 2.2 mmol/L (0.4-2.0) 1.8 mmol/L (0.4-2.0) Calcium Level 8.1 mg/dL (8.5-10.1) Total Bilirubin 1.1 mg/dL (0.2-1.0) Aspartate Amino Transf (AST/SGOT) 291 U/L (15-37) Alanine Aminotransferase (ALT/SGPT) 187 U/L (16-63) Alkaline Phosphatase 207 U/L (46-116) Troponin I Quantitative 0.046 ng/mL (0.000-0.055) Total Protein 5.3 g/dL (6.4-8.2) Albumin 2.2 g/dL (3.4-5.0) Albumin/Globulin Ratio 0.7 (1.0-1.7) Lipase 40 U/L (73-393) Urine Collection Type U cath Urine Color Yellow Urine Clarity Clear Urine pH 8.0 (<5.0-8.0) Urine Specific [place] 1.010 (1.000-1.030) Urine Protein >=300 mg/dL (NEG-TRACE) Urine Glucose (UA) Negative mg/dL (NEG) Urine Ketones (Stick) Negative mg/dL (NEG) Urine Blood Small (NEG) Urine Nitrite Negative (NEG) Urine Bilirubin Negative (NEG) Urine Urobilinogen Dipstick 0.2 mg/dL (0.2 mg/dL) Urine Leukocyte Esterase Negative (NEG) Urine RBC 6-10 /HPF (0-2) Urine WBC Rare /HPF (0-4) Urine Squamous Epithelial Cells Occ /LPF Urine Bacteria 0 /HPF (0-FEW) Hepatitis A IgM Antibody Nonreactive (Nonreactive) Hepatitis B Surface Antigen Nonreactive (Nonreactive) Hepatitis B Core IgM Antibody Nonreactive (Nonreactive) Hepatitis C IgG Antibody Nonreactive (Nonreactive) Laboratory Tests Test 11/11/19 00:10 11/11/19 12:10 Lactic Acid Level 1.8 mmol/L (0.4-2.0) Hepatitis A IgM Antibody Nonreactive (Nonreactive) Hepatitis B Surface Antigen Nonreactive (Nonreactive) Hepatitis B Core IgM Antibody Nonreactive (Nonreactive) Hepatitis C IgG Antibody Nonreactive (Nonreactive) Images Images Reviewed results of chest x-ray and CT abdomen. Reviewed lab studies from prior hospital stays. Assessment/Plan Assessment/Plan Assessment: Pancytopenia Fever of unknown origin Colitis ESRD on hemodialysis Recommendations: -Suspect leukopenia and thrombocytopenia are acute and secondary to acute illness. -However, will check B12, iron studies, copper level, SPEP, free kappa lambda light chains. Check folate level as outpatient -Continue treatment for colitis, the likely source of his fever -Antibiotics per ID -Hemodialysis per nephrology -Other management per primary service Thank you for the consult Panda Singh MD Medical Oncology/Hematology Ph: [phone] GIL SINGH MD Nov 11, 2019 15:55
[2019-11-11] MEDS ORDERED: BREO ELLIPTA INH SCH (16:08)
--- NOTE | 2019-11-11 16:09 | EKG ---
[facility] [address] [place] [address] Test Date: 2019-11-10 Test Time: 15:30:55 Pat Name: DEVIN MANUEL Department: Room: [facility] Gender: M Head Of English: : 1940 Requested By: KAREN DE LA ROSA Order Number: [id number] Reading MD: Measurements Intervals [place] Rate: 97 P: -90 MI: 110 QRS: 91 QRSD: 94 T: -56 QT: 346 QTc: 444 Interpretive Statements SINUS RHYTHM RIGHTWARD AXIS ST & T ABNORMALITY, CONSIDER ANTEROLATERAL ISCHEMIA OR LEFT VENTRICULAR STRAIN INFEROLATERAL ISCHEMIA OR LEFT VENTRICULAR STRAIN ABNORMAL ECG RI6.02 No previous ECG available for comparison
--- NOTE | 2019-11-11 16:09 | EKG ---
[facility] [address] [place] [address] Test Date: 2019-11-10 Test Time: 14:49:41 Pat Name: DEVIN MANUEL Department: Room: [facility] Gender: M Switchboard Wirer: : 1940 Requested By: KAREN DE LA ROSA Order Number: [id number] Reading MD: Measurements Intervals [place] Rate: 99 P: 90 NC: 140 QRS: 96 QRSD: 90 T: -48 QT: 368 QTc: 478 Interpretive Statements SINUS RHYTHM RIGHTWARD AXIS QRS(T) CONTOUR ABNORMALITY CONSIDER ANTEROSEPTAL MYOCARDIAL DAMAGE ST & T ABNORMALITY, CONSIDER INFEROLATERAL ISCHEMIA OR LEFT VENTRICULAR STRAIN ABNORMAL ECG RI6.01 No previous ECG available for comparison
--- NOTE | 2019-11-11 17:13 | NUR ---
SW following. Spoke with RN and reviewed chart. Pt from home with . Pt on 2l 02. Pt on IV abx r/t sepsis and colitis. Pt COVID pending. Pt does out-patient dialysis. SW to follow.
[2019-11-11 19:00] VITALS: BP 104/55
[2019-11-11] MEDS: SIMVASTATIN 10 MG TABLET PO SCH (20:29)
[2019-11-11 23:45] VITALS: BP 129/61
[2019-11-12 02:16] VITALS: BP 124/60
[2019-11-12 04:25] LABS: BASO % 0 % (0-3); CALCIUM 6.8 mg/dL (8.5-10.1); CREATININE 4.9 mg/dL (0.7-1.3); EOS # 0.1 x10^3/uL (0.0-0.7); EOS % 1 % (0-3); GFR 11.6; HEMATOCRIT 26.9 % (39.0-53.0); HEMOGLOBIN 8.9 g/dL (13.0-17.5); LYMPH # 0.6 x10^3/uL (1.0-4.8); LYMPH % 4 % (24-48); MEAN CORPUSCULAR HEMOGLOBIN 32 pg (25-35); MEAN CORPUSCULAR HGB CONC 33 g/dL (31-37); MEAN CORPUSCULAR VOLUME 98 fL (79-100); MONO # 0.7 x10^3/uL (0.0-1.1); MONO % 4 % (0-9); NEUT # 15.9 x10^3/uL (1.8-7.7); NEUT % 92 % (31-73); PLATELET COUNT 67 x10^3/uL (140-400); RED BLOOD COUNT 2.74 x10^6/uL (4.30-5.70); WHITE BLOOD COUNT 17.3 x10^3/uL (4.0-11.0)
[2019-11-12 04:47] LABS: ALBUMIN 1.8 g/dL (3.4-5.0); DIRECT BILIRUBIN 0.2 mg/dL (0.0-0.2); TOTAL BILIRUBIN 0.4 mg/dL (0.2-1.0); TOTAL PROTEIN 4.4 g/dL (6.4-8.2)
[2019-11-12] MEDS: PIPERACILLIN/TAZOBACTAM 2.25 GM in IV NORMAL SALINE 50ML 50 ML IV SCH ×3 (06:35→21:00)
--- NOTE | 2019-11-12 06:36 | RAD ---
Limited abdomen ultrasound HISTORY: Elevated liver function tests. COMPARISON: CT abdomen and pelvis November 10, 2019. FINDINGS: Bowel gas shadowing obscures the entirety of the pancreas and most of the aorta and IVC. There is no significant abdominal vessels are normal. Small right pleural effusion noted. Normal liver echogenicity. No liver mass or nodularity. Hepatopedal portal vein blood flow. Gallbladder wall hypoechoic thickening with a thickness of 7 mm. No gallstones evident. No sonographic Mcwilliams sign documented by the dot net architect. No biliary ductal dilation common body diameters 5 mm. Right renal length 10.2 cm. Increased parenchymal echogenicity. Interpolar 2.5 cm right renal cyst. No mass or hydronephrosis of the right kidney. Spleen and left kidney were not evaluated. IMPRESSION: 1. Edematous gallbladder wall thickening. This is a nonspecific imaging feature. This could be inflammatory thickening from cholecystitis although reactive thickening from liver disease or hypoproteinemia are also possibilities. No biliary ductal dilation. 2. Mild right pleural effusion. 3. Increased right renal parenchymal echogenicity suggesting medical renal disease. No hydronephrosis. Simple right renal cyst is present, [place]ni[place] 1, no follow-up of this cyst necessary. Electronically signed by: Quentin Blanca MD (11/12/2019 6:33 AM) [facility]
[2019-11-12 07:20] VITALS: BP 163/71
[2019-11-12] MEDS: ALBUTEROL SULFATE 8GM INHALER. INH SCH ×5 (08:00→20:59)
[2019-11-12] MEDS: CARVEDILOL 6.25 MG TABLET. PO SCH ×2 (08:00→16:45)
--- NOTE | 2019-11-12 08:02 | PDOC ---
PULMONARY PROGRESS NOTES DATE: 11/12/19 TIME: 08:00 Subjective feels better, on rn, sob better, has cough Vitals Vital Signs Date Time Temp Pulse Resp B/P (MAP) Pulse Ox O2 Delivery O2 Flow Rate FiO2 11/12/19 02:16 97.3 52 16 124/60 (81) 97 Room Air 97.3 11/11/19 20:00 2.0 General: Alert Lungs: Crackles Cardiovascular: S1, S2 Abdomen: Soft Neuro Exam: Alert Extremities: No Edema Labs Laboratory Tests Test 11/10/19 15:00 11/10/19 15:07 11/11/19 00:10 11/11/19 09:45 White Blood Count 2.1 x10^3/uL (4.0-11.0) Red Blood Count 3.27 x10^6/uL (4.30-5.70) Hemoglobin 11.0 g/dL (13.0-17.5) Hematocrit 32.0 % (39.0-53.0) Mean Corpuscular Volume 98 fL (79-100) Mean Corpuscular Hemoglobin 34 pg (25-35) Mean Corpuscular Hemoglobin Concent 34 g/dL (31-37) Red Cell Distribution Width 15.6 % (11.5-14.5) Platelet Count 91 x10^3/uL (140-400) Neutrophils (%) (Auto) 95 % (31-73) Lymphocytes (%) (Auto) 4 % (24-48) Monocytes (%) (Auto) 0 % (0-9) Eosinophils (%) (Auto) 1 % (0-3) Basophils (%) (Auto) 0 % (0-3) Neutrophils # (Auto) 1.9 x10^3/uL (1.8-7.7) Lymphocytes # (Auto) 0.1 x10^3/uL (1.0-4.8) Monocytes # (Auto) 0.0 x10^3/uL (0.0-1.1) Eosinophils # (Auto) 0.0 x10^3/uL (0.0-0.7) Basophils # (Auto) 0.0 x10^3/uL (0.0-0.2) Segmented Neutrophils % 82 % (35-66) Band Neutrophils % 6 % (0-9) Lymphocytes % 10 % (24-48) Metamyelocytes % 2 % (0-0) Toxic Vacuolation Slight Platelet Estimate Decreased (ADEQUATE) Target Cells Sodium Level 142 mmol/L (136-145) Potassium Level 3.0 mmol/L (3.5-5.1) Chloride Level 105 mmol/L (98-107) Carbon Dioxide Level 29 mmol/L (21-32) Anion Gap 8 (6-14) Blood Urea Nitrogen 24 mg/dL (8-26) Creatinine 3.2 mg/dL (0.7-1.3) Estimated GFR (Cockcroft-Gault) 18.9 BUN/Creatinine Ratio 8 (6-20) Glucose Level 71 mg/dL (70-99) Lactic Acid Level 2.2 mmol/L (0.4-2.0) 1.8 mmol/L (0.4-2.0) Calcium Level 8.1 mg/dL (8.5-10.1) Total Bilirubin 1.1 mg/dL (0.2-1.0) Aspartate Amino Transf (AST/SGOT) 291 U/L (15-37) Alanine Aminotransferase (ALT/SGPT) 187 U/L (16-63) Alkaline Phosphatase 207 U/L (46-116) Troponin I Quantitative 0.046 ng/mL (0.000-0.055) Total Protein 5.3 g/dL (6.4-8.2) Albumin 2.2 g/dL (3.4-5.0) Albumin/Globulin Ratio 0.7 (1.0-1.7) Lipase 40 U/L (73-393) Coronavirus (PCR) Not detected (Not Detected) Urine Collection Type U cath Urine Color Yellow Urine Clarity Clear Urine pH 8.0 (<5.0-8.0) Urine Specific [place] 1.010 (1.000-1.030) Urine Protein >=300 mg/dL (NEG-TRACE) Urine Glucose (UA) Negative mg/dL (NEG) Urine Ketones (Stick) Negative mg/dL (NEG) Urine Blood Small (NEG) Urine Nitrite Negative (NEG) Urine Bilirubin Negative (NEG) Urine Urobilinogen Dipstick 0.2 mg/dL (0.2 mg/dL) Urine Leukocyte Esterase Negative (NEG) Urine RBC 6-10 /HPF (0-2) Urine WBC Rare /HPF (0-4) Urine Squamous Epithelial Cells Occ /LPF Urine Bacteria 0 /HPF (0-FEW) Clostridium difficile Toxin (PCR) Negative (NEGATIVE) Test 11/11/19 12:10 11/12/19 03:30 Red Blood Count 3.19 x10^6/uL (4.30-5.70) 2.74 x10^6/uL (4.30-5.70) Absolute Reticulocyte Count 0.052 x10^6/uL (0.020-0.120) Percent Reticulocyte Count 1.6 % (0.5-2.3) Immature Reticulocyte Fraction 0.44 (0.20-0.60) Hepatitis A IgM Antibody Nonreactive (Nonreactive) Hepatitis B Surface Antigen Nonreactive (Nonreactive) Hepatitis B Core IgM Antibody Nonreactive (Nonreactive) Hepatitis C IgG Antibody Nonreactive (Nonreactive) White Blood Count 17.3 x10^3/uL (4.0-11.0) Hemoglobin 8.9 g/dL (13.0-17.5) Hematocrit 26.9 % (39.0-53.0) Mean Corpuscular Volume 98 fL (79-100) Mean Corpuscular Hemoglobin 32 pg (25-35) Mean Corpuscular Hemoglobin Concent 33 g/dL (31-37) Red Cell Distribution Width 16.0 % (11.5-14.5) Platelet Count 67 x10^3/uL (140-400) Neutrophils (%) (Auto) 92 % (31-73) Lymphocytes (%) (Auto) 4 % (24-48) Monocytes (%) (Auto) 4 % (0-9) Eosinophils (%) (Auto) 1 % (0-3) Basophils (%) (Auto) 0 % (0-3) Neutrophils # (Auto) 15.9 x10^3/uL (1.8-7.7) Lymphocytes # (Auto) 0.6 x10^3/uL (1.0-4.8) Monocytes # (Auto) 0.7 x10^3/uL (0.0-1.1) Eosinophils # (Auto) 0.1 x10^3/uL (0.0-0.7) Basophils # (Auto) 0.0 x10^3/uL (0.0-0.2) Sodium Level 136 mmol/L (136-145) Potassium Level 4.0 mmol/L (3.5-5.1) Chloride Level 102 mmol/L (98-107) Carbon Dioxide Level 25 mmol/L (21-32) Anion Gap 9 (6-14) Blood Urea Nitrogen 48 mg/dL (8-26) Creatinine 4.9 mg/dL (0.7-1.3) Estimated GFR (Cockcroft-Gault) 11.6 Glucose Level 66 mg/dL (70-99) Calcium Level 6.8 mg/dL (8.5-10.1) Iron Level 6 ug/dL (65-175) Total Iron Binding Capacity 101 ug/dL (250-450) Iron Saturation 6 % (15-34) Total Bilirubin 0.4 mg/dL (0.2-1.0) Direct Bilirubin 0.2 mg/dL (0.0-0.2) Aspartate Amino Transf (AST/SGOT) 63 U/L (15-37) Alanine Aminotransferase (ALT/SGPT) 120 U/L (16-63) Alkaline Phosphatase 99 U/L (46-116) Total Protein 4.4 g/dL (6.4-8.2) Albumin 1.8 g/dL (3.4-5.0) Laboratory Tests Test 11/11/19 09:45 11/11/19 12:10 11/12/19 03:30 Clostridium difficile Toxin (PCR) Negative (NEGATIVE) Red Blood Count 3.19 x10^6/uL (4.30-5.70) 2.74 x10^6/uL (4.30-5.70) Absolute Reticulocyte Count 0.052 x10^6/uL (0.020-0.120) Percent Reticulocyte Count 1.6 % (0.5-2.3) Immature Reticulocyte Fraction 0.44 (0.20-0.60) Hepatitis A IgM Antibody Nonreactive (Nonreactive) Hepatitis B Surface Antigen Nonreactive (Nonreactive) Hepatitis B Core IgM Antibody Nonreactive (Nonreactive) Hepatitis C IgG Antibody Nonreactive (Nonreactive) White Blood Count 17.3 x10^3/uL (4.0-11.0) Hemoglobin 8.9 g/dL (13.0-17.5) Hematocrit 26.9 % (39.0-53.0) Mean Corpuscular Volume 98 fL (79-100) Mean Corpuscular Hemoglobin 32 pg (25-35) Mean Corpuscular Hemoglobin Concent 33 g/dL (31-37) Red Cell Distribution Width 16.0 % (11.5-14.5) Platelet Count 67 x10^3/uL (140-400) Neutrophils (%) (Auto) 92 % (31-73) Lymphocytes (%) (Auto) 4 % (24-48) Monocytes (%) (Auto) 4 % (0-9) Eosinophils (%) (Auto) 1 % (0-3) Basophils (%) (Auto) 0 % (0-3) Neutrophils # (Auto) 15.9 x10^3/uL (1.8-7.7) Lymphocytes # (Auto) 0.6 x10^3/uL (1.0-4.8) Monocytes # (Auto) 0.7 x10^3/uL (0.0-1.1) Eosinophils # (Auto) 0.1 x10^3/uL (0.0-0.7) Basophils # (Auto) 0.0 x10^3/uL (0.0-0.2) Sodium Level 136 mmol/L (136-145) Potassium Level 4.0 mmol/L (3.5-5.1) Chloride Level 102 mmol/L (98-107) Carbon Dioxide Level 25 mmol/L (21-32) Anion Gap 9 (6-14) Blood Urea Nitrogen 48 mg/dL (8-26) Creatinine 4.9 mg/dL (0.7-1.3) Estimated GFR (Cockcroft-Gault) 11.6 Glucose Level 66 mg/dL (70-99) Calcium Level 6.8 mg/dL (8.5-10.1) Iron Level 6 ug/dL (65-175) Total Iron Binding Capacity 101 ug/dL (250-450) Iron Saturation 6 % (15-34) Total Bilirubin 0.4 mg/dL (0.2-1.0) Direct Bilirubin 0.2 mg/dL (0.0-0.2) Aspartate Amino Transf (AST/SGOT) 63 U/L (15-37) Alanine Aminotransferase (ALT/SGPT) 120 U/L (16-63) Alkaline Phosphatase 99 U/L (46-116) Total Protein 4.4 g/dL (6.4-8.2) Albumin 1.8 g/dL (3.4-5.0) Medications Active Scripts Medications Dose Route/Sig Max Daily Dose Days Date Category Fish Oil 1,000 mg Softgel ([place]-3/Dha/Epa/Fish Oil) 1,000 Mg Capsule 1,000 Mg PO DAILY 11/10/19 Reported Sucralfate 1 Gm Tablet 1 Gm PO QID 11/10/19 Reported Vitamin D3 (Cholecalciferol (Vitamin D3)) 10 Mcg Tablet 2,000 Units PO DAILY 11/10/19 Reported Mandi-Debbie Tablet (Folic Acid/Vitamin B Comp W-C) 0.8 Mg Tablet 0.8 Mg PO DAILY 11/10/19 Reported Isosorbide Mononitrate Er (Isosorbide Mononitrate) 30 Mg Tab.er.24h 30 Mg PO BID 11/10/19 Reported Eliquis (Apixaban) 2.5 Mg Tablet 2.5 Mg PO BID 11/10/19 Reported [place] 5-325 Tablet (Acetaminophen/Hydrocodone Bitart) 1 Each Tablet 1 Tab PO Q6-8HRS PRN 06/07/19 Reported Benadryl (Diphenhydramine Hcl) 25 Mg Capsule 50 Mg PO PRN Q6HRS PRN 06/06/19 Reported Xanax (Alprazolam) 0.5 Mg Tablet 0.5 Mg PO PRN Q6HRS PRN 06/06/19 Reported Flomax (Tamsulosin Hcl) 0.4 Mg Cap.er.24h 0.4 Mg PO BID 03/11/19 Reported Simvastatin 20 Mg Tablet 30 Mg PO HS 03/11/19 Reported Pantoprazole Sodium (Pantoprazole Sodium) 40 Mg Tablet.dr 40 Mg PO BID 03/11/19 Reported Carvedilol (Carvedilol) 6.25 Mg Tablet 6.25 Mg PO BIDWMEALS 03/11/19 Reported Bupropion Xl (Bupropion Hcl) 150 Mg Tab.er.24h 150 Mg PO QAM 03/11/19 Reported Symbicort 160-4.5 Mcg Inhaler (Budesonide/Formoterol Fumarate) 10.2 Gm Hfa.aer.ad 2 Puff IH BID 03/11/19 Reported Ventolin Hfa Inhaler (Albuterol Sulfate) 18 Gm Hfa.aer.ad 2 Puff INH QID 03/11/19 Reported Impression . IMPRESSION: 1. High-grade fever up to 104 degrees Fahrenheit with leukopenia. Concerning for viral infection such as COVID-19. No focus of infection in the lungs. 2. Long history of tobacco use for 40+ years and he still smokes cigarettes. Likely underlying chronic obstructive pulmonary disease without exacerbation. 3. Abnormal CT abdomen and pelvis consistent with colitis. GI is following. 4. Severe protein-calorie malnutrition. 5. Abnormal LFTs, could be related to COVID-19 infection. 6. sepsis Plan . RECOMMENDATIONS: 1. 02 titration to keep sat 92% 2. Follow all cultures. fu COVID-19 3. Continue COVID isolation until ruled out. 4. Follow LFTs. 5. Improve nutritional status. 6. Follow GI recommendations. 7. Continue with present inhalers. Once COVID ruled out nebulizers can be initiated. 8. Anticoagulation with Eliquis per PCP for AFib. 9. Antibiotics per Infectious Disease. 10. Discussed with RN. We will follow along with you. MIGUEL MAXWELL MD Nov 12, 2019 08:02
[2019-11-12] MEDS: SUCRALFATE 1 GM TABLET. PO SCH ×4 (08:12→20:59)
[2019-11-12] MEDS: PANTOPRAZOLE 40 MG TABLET.DR. PO SCH ×2 (08:12→16:44)
[2019-11-12] MEDS ORDERED: LIDOCAINE 1% PF 2 ML VIAL. ONE ×2 (08:37→09:00)
[2019-11-12] MEDS: ISOSORBIDE MONONITRATE ER 30 MG TAB.ER.24H PO SCH ×2 (09:00→20:59)
[2019-11-12] MEDS ORDERED: FLUTICASONE/VILANTEROL 200/25 INHALER. INH ONE (09:00)
[2019-11-12 10:30] LABS: % BANDS 11 % (0-9); % LYMPHS 3 % (24-48); % SEGS 86 % (35-66)
[2019-11-12 10:31] LABS: PLT ESTIMATE DECREASED (ADEQUATE)
[2019-11-12 10:32] LABS: ANISOCYTOSIS PRESENT
--- NOTE | 2019-11-12 10:40 | PDOC ---
PROGRESS NOTES Date of Service: DATE: 11/12/19 TIME: 10:40 Chief Complaint Chief Complaint ASSESSMENT AND PLAN: Nausea, vomiting, Mild diffuse wall thickening involving the descending and sigmoid colon, favored represent colitis, may be infectious or inflammatory. diarrhea, pancytopenia abdominal pain, shortness of breath, abnormal chest x-ray, colitis small pleural effusion. sepsis acute metabolic encephalopathy admitted. consult GI and Pulmonary. IV fluids if Nephrology agrees. Consult Nephrology for dialysis management. Full code. P.r.n. Tylenol, p.r.n. Zofran, IV antibiotics, zosyn home meds, DVT prophylaxis. with neutropenic colitis, etiology to be determined. cultures and viral hepatitis serologies. Heme consult for possible BM biopsy. 38 min pt exam, chart review, > 50% of time spent with exam, chart review, pt care coordination History of Present Illness History of Present Illness 79-year-old male who has multiple medical issues. He smokes every day. He has renal failure. he presents with nausea, vomiting, and diarrhea, fever. He came in by EMS. It has been slowly worsening over the past couple of days, but an hour before dialysis each day is when it gets worse. He called dialysis today and stated he did not feel well. He had multiple episodes of nausea. He had some confusion. Vitals Vitals Vital Signs Date Time Temp Pulse Resp B/P (MAP) Pulse Ox O2 Delivery O2 Flow Rate FiO2 11/12/19 07:20 96.9 59 16 163/71 (101) 98 Room Air 96.9 11/11/19 20:00 2.0 Physical Exam Physical Exam HEENT: Normal cephalic atraumatic, external auditory canals are patent EYES: Extraocular muscles are intact, pupils are equally round and reactive to light and accommodation MUSCULOSKELETAL: Well developed, well nourished, good range of motion ENDOCRINE: No thyromegaly was palpated LYMPHATICS: No cervical chain or axillary nodes were noted HEMATOPOIETIC: No bruising NECK: Supple, no JVD, no thyromegaly was noted. LUNGS: Clear to auscultation in all lung cronin without rhonchi or wheezing. HEART: RRR, S1, S2 present. Peripheral pulses intact, no obvious murmurs were noted. ABDOMEN: He has decreased bowel sounds. EXTREMITIES: Without any cyanosis, clubbing, or edema. Pedal pulses intact, Homans sign is negative. NEUROLOGIC: He is more alert now. PSYCHIATRIC: Normal affect, normal mood. Stable. SKIN: He is slightly jaundiced. VASCULAR: Good capillary refill, neurovascular bundle appears to be intact. General: Alert, Oriented X3, Cooperative, No acute distress Heart: Regular rate, Normal S1 Lungs: Clear, Crackles Abdomen: Normal bowel sounds, Soft, No hepatosplenomegaly Extremities: No cyanosis Skin: No rashes Labs LABS Laboratory Tests Test 11/11/19 12:10 11/12/19 03:30 Red Blood Count 3.19 x10^6/uL (4.30-5.70) 2.74 x10^6/uL (4.30-5.70) Absolute Reticulocyte Count 0.052 x10^6/uL (0.020-0.120) Percent Reticulocyte Count 1.6 % (0.5-2.3) Immature Reticulocyte Fraction 0.44 (0.20-0.60) Hepatitis A IgM Antibody Nonreactive (Nonreactive) Hepatitis B Surface Antigen Nonreactive (Nonreactive) Hepatitis B Core IgM Antibody Nonreactive (Nonreactive) Hepatitis C IgG Antibody Nonreactive (Nonreactive) White Blood Count 17.3 x10^3/uL (4.0-11.0) Hemoglobin 8.9 g/dL (13.0-17.5) Hematocrit 26.9 % (39.0-53.0) Mean Corpuscular Volume 98 fL (79-100) Mean Corpuscular Hemoglobin 32 pg (25-35) Mean Corpuscular Hemoglobin Concent 33 g/dL (31-37) Red Cell Distribution Width 16.0 % (11.5-14.5) Platelet Count 67 x10^3/uL (140-400) Neutrophils (%) (Auto) 92 % (31-73) Lymphocytes (%) (Auto) 4 % (24-48) Monocytes (%) (Auto) 4 % (0-9) Eosinophils (%) (Auto) 1 % (0-3) Basophils (%) (Auto) 0 % (0-3) Neutrophils # (Auto) 15.9 x10^3/uL (1.8-7.7) Lymphocytes # (Auto) 0.6 x10^3/uL (1.0-4.8) Monocytes # (Auto) 0.7 x10^3/uL (0.0-1.1) Eosinophils # (Auto) 0.1 x10^3/uL (0.0-0.7) Basophils # (Auto) 0.0 x10^3/uL (0.0-0.2) Segmented Neutrophils % 86 % (35-66) Band Neutrophils % 11 % (0-9) Lymphocytes % 3 % (24-48) Dohle Bodies Present Platelet Estimate Decreased (ADEQUATE) Anisocytosis Present Sodium Level 136 mmol/L (136-145) Potassium Level 4.0 mmol/L (3.5-5.1) Chloride Level 102 mmol/L (98-107) Carbon Dioxide Level 25 mmol/L (21-32) Anion Gap 9 (6-14) Blood Urea Nitrogen 48 mg/dL (8-26) Creatinine 4.9 mg/dL (0.7-1.3) Estimated GFR (Cockcroft-Gault) 11.6 Glucose Level 66 mg/dL (70-99) Calcium Level 6.8 mg/dL (8.5-10.1) Iron Level 6 ug/dL (65-175) Total Iron Binding Capacity 101 ug/dL (250-450) Iron Saturation 6 % (15-34) Total Bilirubin 0.4 mg/dL (0.2-1.0) Direct Bilirubin 0.2 mg/dL (0.0-0.2) Aspartate Amino Transf (AST/SGOT) 63 U/L (15-37) Alanine Aminotransferase (ALT/SGPT) 120 U/L (16-63) Alkaline Phosphatase 99 U/L (46-116) Total Protein 4.4 g/dL (6.4-8.2) Albumin 1.8 g/dL (3.4-5.0) Assessment and Plan Assessmemt and Plan Problems Medical Problems: (1) Colitis Status: Acute (2) Delirium Status: Acute (3) Sepsis Status: Acute Comment Review of Relevant I have reviewed the following items karey (where applicable) has been applied. Labs Laboratory Tests Test 11/10/19 15:00 11/10/19 15:07 11/11/19 00:10 11/11/19 09:45 White Blood Count 2.1 x10^3/uL (4.0-11.0) Red Blood Count 3.27 x10^6/uL (4.30-5.70) Hemoglobin 11.0 g/dL (13.0-17.5) Hematocrit 32.0 % (39.0-53.0) Mean Corpuscular Volume 98 fL (79-100) Mean Corpuscular Hemoglobin 34 pg (25-35) Mean Corpuscular Hemoglobin Concent 34 g/dL (31-37) Red Cell Distribution Width 15.6 % (11.5-14.5) Platelet Count 91 x10^3/uL (140-400) Neutrophils (%) (Auto) 95 % (31-73) Lymphocytes (%) (Auto) 4 % (24-48) Monocytes (%) (Auto) 0 % (0-9) Eosinophils (%) (Auto) 1 % (0-3) Basophils (%) (Auto) 0 % (0-3) Neutrophils # (Auto) 1.9 x10^3/uL (1.8-7.7) Lymphocytes # (Auto) 0.1 x10^3/uL (1.0-4.8) Monocytes # (Auto) 0.0 x10^3/uL (0.0-1.1) Eosinophils # (Auto) 0.0 x10^3/uL (0.0-0.7) Basophils # (Auto) 0.0 x10^3/uL (0.0-0.2) Segmented Neutrophils % 82 % (35-66) Band Neutrophils % 6 % (0-9) Lymphocytes % 10 % (24-48) Metamyelocytes % 2 % (0-0) Toxic Vacuolation Slight Platelet Estimate Decreased (ADEQUATE) Target Cells Sodium Level 142 mmol/L (136-145) Potassium Level 3.0 mmol/L (3.5-5.1) Chloride Level 105 mmol/L (98-107) Carbon Dioxide Level 29 mmol/L (21-32) Anion Gap 8 (6-14) Blood Urea Nitrogen 24 mg/dL (8-26) Creatinine 3.2 mg/dL (0.7-1.3) Estimated GFR (Cockcroft-Gault) 18.9 BUN/Creatinine Ratio 8 (6-20) Glucose Level 71 mg/dL (70-99) Lactic Acid Level 2.2 mmol/L (0.4-2.0) 1.8 mmol/L (0.4-2.0) Calcium Level 8.1 mg/dL (8.5-10.1) Total Bilirubin 1.1 mg/dL (0.2-1.0) Aspartate Amino Transf (AST/SGOT) 291 U/L (15-37) Alanine Aminotransferase (ALT/SGPT) 187 U/L (16-63) Alkaline Phosphatase 207 U/L (46-116) Troponin I Quantitative 0.046 ng/mL (0.000-0.055) Total Protein 5.3 g/dL (6.4-8.2) Albumin 2.2 g/dL (3.4-5.0) Albumin/Globulin Ratio 0.7 (1.0-1.7) Lipase 40 U/L (73-393) Coronavirus (PCR) Not detected (Not Detected) Urine Collection Type U cath Urine Color Yellow Urine Clarity Clear Urine pH 8.0 (<5.0-8.0) Urine Specific [place] 1.010 (1.000-1.030) Urine Protein >=300 mg/dL (NEG-TRACE) Urine Glucose (UA) Negative mg/dL (NEG) Urine Ketones (Stick) Negative mg/dL (NEG) Urine Blood Small (NEG) Urine Nitrite Negative (NEG) Urine Bilirubin Negative (NEG) Urine Urobilinogen Dipstick 0.2 mg/dL (0.2 mg/dL) Urine Leukocyte Esterase Negative (NEG) Urine RBC 6-10 /HPF (0-2) Urine WBC Rare /HPF (0-4) Urine Squamous Epithelial Cells Occ /LPF Urine Bacteria 0 /HPF (0-FEW) Clostridium difficile Toxin (PCR) Negative (NEGATIVE) Test 11/11/19 12:10 11/12/19 03:30 Red Blood Count 3.19 x10^6/uL (4.30-5.70) 2.74 x10^6/uL (4.30-5.70) Absolute Reticulocyte Count 0.052 x10^6/uL (0.020-0.120) Percent Reticulocyte Count 1.6 % (0.5-2.3) Immature Reticulocyte Fraction 0.44 (0.20-0.60) Hepatitis A IgM Antibody Nonreactive (Nonreactive) Hepatitis B Surface Antigen Nonreactive (Nonreactive) Hepatitis B Core IgM Antibody Nonreactive (Nonreactive) Hepatitis C IgG Antibody Nonreactive (Nonreactive) White Blood Count 17.3 x10^3/uL (4.0-11.0) Hemoglobin 8.9 g/dL (13.0-17.5) Hematocrit 26.9 % (39.0-53.0) Mean Corpuscular Volume 98 fL (79-100) Mean Corpuscular Hemoglobin 32 pg (25-35) Mean Corpuscular Hemoglobin Concent 33 g/dL (31-37) Red Cell Distribution Width 16.0 % (11.5-14.5) Platelet Count 67 x10^3/uL (140-400) Neutrophils (%) (Auto) 92 % (31-73) Lymphocytes (%) (Auto) 4 % (24-48) Monocytes (%) (Auto) 4 % (0-9) Eosinophils (%) (Auto) 1 % (0-3) Basophils (%) (Auto) 0 % (0-3) Neutrophils # (Auto) 15.9 x10^3/uL (1.8-7.7) Lymphocytes # (Auto) 0.6 x10^3/uL (1.0-4.8) Monocytes # (Auto) 0.7 x10^3/uL (0.0-1.1) Eosinophils # (Auto) 0.1 x10^3/uL (0.0-0.7) Basophils # (Auto) 0.0 x10^3/uL (0.0-0.2) Segmented Neutrophils % 86 % (35-66) Band Neutrophils % 11 % (0-9) Lymphocytes % 3 % (24-48) Dohle Bodies Present Platelet Estimate Decreased (ADEQUATE) Anisocytosis Present Sodium Level 136 mmol/L (136-145) Potassium Level 4.0 mmol/L (3.5-5.1) Chloride Level 102 mmol/L (98-107) Carbon Dioxide Level 25 mmol/L (21-32) Anion Gap 9 (6-14) Blood Urea Nitrogen 48 mg/dL (8-26) Creatinine 4.9 mg/dL (0.7-1.3) Estimated GFR (Cockcroft-Gault) 11.6 Glucose Level 66 mg/dL (70-99) Calcium Level 6.8 mg/dL (8.5-10.1) Iron Level 6 ug/dL (65-175) Total Iron Binding Capacity 101 ug/dL (250-450) Iron Saturation 6 % (15-34) Total Bilirubin 0.4 mg/dL (0.2-1.0) Direct Bilirubin 0.2 mg/dL (0.0-0.2) Aspartate Amino Transf (AST/SGOT) 63 U/L (15-37) Alanine Aminotransferase (ALT/SGPT) 120 U/L (16-63) Alkaline Phosphatase 99 U/L (46-116) Total Protein 4.4 g/dL (6.4-8.2) Albumin 1.8 g/dL (3.4-5.0) Laboratory Tests Test 11/11/19 12:10 11/12/19 03:30 Red Blood Count 3.19 x10^6/uL (4.30-5.70) 2.74 x10^6/uL (4.30-5.70) Absolute Reticulocyte Count 0.052 x10^6/uL (0.020-0.120) Percent Reticulocyte Count 1.6 % (0.5-2.3) Immature Reticulocyte Fraction 0.44 (0.20-0.60) Hepatitis A IgM Antibody Nonreactive (Nonreactive) Hepatitis B Surface Antigen Nonreactive (Nonreactive) Hepatitis B Core IgM Antibody Nonreactive (Nonreactive) Hepatitis C IgG Antibody Nonreactive (Nonreactive) White Blood Count 17.3 x10^3/uL (4.0-11.0) Hemoglobin 8.9 g/dL (13.0-17.5) Hematocrit 26.9 % (39.0-53.0) Mean Corpuscular Volume 98 fL (79-100) Mean Corpuscular Hemoglobin 32 pg (25-35) Mean Corpuscular Hemoglobin Concent 33 g/dL (31-37) Red Cell Distribution Width 16.0 % (11.5-14.5) Platelet Count 67 x10^3/uL (140-400) Neutrophils (%) (Auto) 92 % (31-73) Lymphocytes (%) (Auto) 4 % (24-48) Monocytes (%) (Auto) 4 % (0-9) Eosinophils (%) (Auto) 1 % (0-3) Basophils (%) (Auto) 0 % (0-3) Neutrophils # (Auto) 15.9 x10^3/uL (1.8-7.7) Lymphocytes # (Auto) 0.6 x10^3/uL (1.0-4.8) Monocytes # (Auto) 0.7 x10^3/uL (0.0-1.1) Eosinophils # (Auto) 0.1 x10^3/uL (0.0-0.7) Basophils # (Auto) 0.0 x10^3/uL (0.0-0.2) Segmented Neutrophils % 86 % (35-66) Band Neutrophils % 11 % (0-9) Lymphocytes % 3 % (24-48) Dohle Bodies Present Platelet Estimate Decreased (ADEQUATE) Anisocytosis Present Sodium Level 136 mmol/L (136-145) Potassium Level 4.0 mmol/L (3.5-5.1) Chloride Level 102 mmol/L (98-107) Carbon Dioxide Level 25 mmol/L (21-32) Anion Gap 9 (6-14) Blood Urea Nitrogen 48 mg/dL (8-26) Creatinine 4.9 mg/dL (0.7-1.3) Estimated GFR (Cockcroft-Gault) 11.6 Glucose Level 66 mg/dL (70-99) Calcium Level 6.8 mg/dL (8.5-10.1) Iron Level 6 ug/dL (65-175) Total Iron Binding Capacity 101 ug/dL (250-450) Iron Saturation 6 % (15-34) Total Bilirubin 0.4 mg/dL (0.2-1.0) Direct Bilirubin 0.2 mg/dL (0.0-0.2) Aspartate Amino Transf (AST/SGOT) 63 U/L (15-37) Alanine Aminotransferase (ALT/SGPT) 120 U/L (16-63) Alkaline Phosphatase 99 U/L (46-116) Total Protein 4.4 g/dL (6.4-8.2) Albumin 1.8 g/dL (3.4-5.0) Microbiology 11/10/19 Blood Culture - Preliminary, Resulted NO GROWTH AFTER 1 DAY Medications Current Medications Ceftriaxone Sodium (Rocephin) 1 gm 1X ONCE IVP Last administered on 11/10/19at 14:59; Start 11/10/19 at 14:45; Stop 11/10/19 at 14:46; Status DC Acetaminophen (Tylenol Supp) 650 mg 1X ONCE ND Last administered on 11/10/19at 15:01; Start 11/10/19 at 15:00; Stop 11/10/19 at 15:11; Status DC Sodium Chloride 1,000 ml @ 1,000 mls/hr 1X ONCE IV Last administered on at 17:30; Start 11/10/19 at 17:30; Stop 11/10/19 at 18:46; Status DC Piperacillin Sod/ Tazobactam Sod (Zosyn Per Pharmacy) 1 each PRN DAILY PRN MC SEE COMMENTS; Start 11/10/19 at 20:00 Piperacillin Sod/ Tazobactam Sod 2.25 gm/Sodium Chloride 50 ml @ 100 mls/hr Q8HRS IV Last administered on 11/12/19at 06:35; Start 11/10/19 at 22:00 Potassium Chloride (Klor-Con) 40 meq 1X ONCE PO Last administered on 11/10/19at 21:35; Start 11/10/19 at 21:30; Stop 11/10/19 at 21:31; Status DC Alprazolam (Xanax) 0.5 mg PRN Q6HRS PRN PO ANXIETY / AGITATION; Start 11/11/19 at 07:30 Apixaban (Eliquis) 2.5 mg BID PO Last administered on 11/11/19at 20:29; Start 11/11/19 at 09:00 Bupropion HCl (Wellbutrin Xl) 150 mg DAILY PO Last administered on 11/11/19at 09:46; Start 11/11/19 at 09:00 Carvedilol (Coreg) 6.25 mg BIDWMEALS PO Last administered on 11/11/19at 16:02; Start 11/11/19 at 08:00 Vitamin B Complex/ Vitamin C (Mandi-Debbie) 1 tab DAILY PO Last administered on 11/11/19at 09:46; Start 11/11/19 at 09:00 Acetaminophen/ Hydrocodone Bitart (Lortab 5/325) 1 tab QIDPRN PRN PO MODERATE PAIN Last administered on 11/11/19at 16:03; Start 11/11/19 at 07:30 Isosorbide Mononitrate (Imdur) 30 mg BID PO ; Start 11/11/19 at 09:00 Pantoprazole Sodium (Protonix) 40 mg BIDAC PO Last administered on 11/12/19 08:12; Start 11/11/19 at 08:00 Simvastatin (Zocor) 30 mg QHS PO Last administered on 11/11/19 20:29; Start 11/11/19 at 21:00 Sucralfate (Carafate) 1 gm QIDACHS PO Last administered on 11/12/19 08:12; Start 11/11/19 at 08:00 Tamsulosin HCl (Flomax) 0.4 mg BID PO Last administered on 11/11/19 20:29; Start 11/11/19 at 09:00 Non-Formulary Medication (Albuterol Sulfate (Ventolin Hfa Inhaler)) 2 puff QID INH ; Start 11/11/19 at 09:00; Status UNV Non-Formulary Medication (Budesonide/ Formoterol Fumarate (Symbicort 160-4.5 Mcg Inhaler)) 2 puff BID IH ; Start 11/11/19 at 09:00; Stop 11/11/19 at 16:08; Status DC Vitamin D (Vitamin D3) 2,000 unit DAILY PO Last administered on 11/11/19 09:46; Start 11/11/19 at 09:00 Fish Oil (Fish Oil) 1,000 mg DAILY PO Last administered on 11/11/19 09:48; Start 11/11/19 at 09:00 Info (Anti-Coagulation Monitoring By Pharmacy) 1 each PRN DAILY PRN MC SEE COMMENTS Last administered on 11/11/19at 15:46; Start 11/11/19 at 08:00 Albuterol Sulfate (Ventolin Neb Soln) 2.5 mg Q6HRS NEB ; Start 11/11/19 at 08:00; Stop 11/11/19 at 12:40; Status DC Budesonide (Pulmicort) 0.5 mg RTBID NEB ; Start 11/11/19 at 08:15; Stop 11/11/19 at 12:41; Status DC Albuterol Sulfate (Ventolin Hfa) 1 puff RTQID INH Last administered on at 20:28; Start 11/11/19 at 09:15 Non-Formulary Medication (Budesonide/ Formoterol Fumarate (Symbicort 160-4.5 Mcg Inhaler)) 2 puff BID INH ; Start 11/11/19 at 16:08; Status Cancel Non-Formulary Medication (Budesonide/ Formoterol Fumarate (Symbicort 160-4.5 Mcg Inhaler)) 2 puff BID INH ; Start 11/12/19 at 09:00 Lidocaine HCl (Xylocaine-Mpf 1% 2ml Vial) 2 ml STK-MED ONCE .ROUTE ; Start 11/12/19 at 08:37; Stop 11/12/19 at 08:37; Status DC Active Scripts Active Reported Fish Oil 1,000 mg Softgel (Lawn-3/Dha/Epa/Fish Oil) 1,000 Mg Capsule 1,000 Mg PO DAILY Sucralfate 1 Gm Tablet 1 Gm PO QID Vitamin D3 (Cholecalciferol (Vitamin D3)) 10 Mcg Tablet 2,000 Units PO DAILY Mandi-Debbie Tablet (Folic Acid/Vitamin B Comp W-C) 0.8 Mg Tablet 0.8 Mg PO DAILY Isosorbide Mononitrate Er (Isosorbide Mononitrate) 30 Mg Tab.er.24h 30 Mg PO BID Eliquis (Apixaban) 2.5 Mg Tablet 2.5 Mg PO BID [place] 5-325 Tablet (Acetaminophen/Hydrocodone Bitart) 1 Each Tablet 1 Tab PO Q6- 8HRS PRN Benadryl (Diphenhydramine Hcl) 25 Mg Capsule 50 Mg PO PRN Q6HRS PRN Xanax (Alprazolam) 0.5 Mg Tablet 0.5 Mg PO PRN Q6HRS PRN Flomax (Tamsulosin Hcl) 0.4 Mg Cap.er.24h 0.4 Mg PO BID Simvastatin 20 Mg Tablet 30 Mg PO HS Pantoprazole Sodium (Pantoprazole Sodium) 40 Mg Tablet.dr 40 Mg PO BID Carvedilol (Carvedilol) 6.25 Mg Tablet 6.25 Mg PO BIDWMEALS Bupropion Xl (Bupropion Hcl) 150 Mg Tab.er.24h 150 Mg PO QAM Symbicort 160-4.5 Mcg Inhaler (Budesonide/Formoterol Fumarate) 10.2 Gm Hfa.aer.ad 2 Puff IH BID Ventolin Hfa Inhaler (Albuterol Sulfate) 18 Gm Hfa.aer.ad 2 Puff INH QID Vitals/I & O Vital Sign - Last 24 Hours 11/11/19 11/11/19 11/11/19 11/11/19 10:47 11:00 15:00 16:02 Temp 95.7 97.6 95.7 97.6 Pulse 73 73 73 Resp 17 19 18 B/P (MAP) 136/62 (86) 132/64 (86) 136/62 Pulse Ox 97 97 O2 Delivery Room Air Room Air Nasal Cannula O2 Flow Rate 2.0 11/11/19 11/11/19 11/11/19 11/11/19 16:03 17:03 19:00 20:00 Temp 97.6 97.6 Pulse 59 Resp 17 18 18 B/P (MAP) 104/55 (71) Pulse Ox 97 O2 Delivery Nasal Cannula Nasal Cannula Room Air Nasal Cannula O2 Flow Rate 2.0 2.0 2.0 11/11/19 11/12/19 11/12/19 23:45 02:16 07:20 Temp 96.5 97.3 96.9 96.5 97.3 96.9 Pulse 53 52 59 Resp 16 16 16 B/P (MAP) 129/61 (83) 124/60 (81) 163/71 (101) Pulse Ox 100 97 98 O2 Delivery Room Air Room Air Room Air Intake and Output 11/11/19 11/11/19 11/12/19 15:00 23:00 07:00 Intake Total 600 ml 320 ml 200 ml Output Total 400 ml Balance 600 ml 320 ml -200 ml Nutrition Consultation Dietary Evaluation: Recommendations by RD: Dietary education by RD, Increase Calorie Intake, Pr otein supplementation Comments: rec advance to renal diet when able Expected Outcomes/Goals: diet adv/ tolerance Malnutrition Findings: Food and Nutrition Intake (Mod: <75% est energy req 7days Weight Status: Appropriate Fluid Accumulation (Non-Severe: Mild depletion Justicifation of Admission Dx: Justifications for Admission: Justification of Admission Dx: Yes TANVIR CARRASCO MD Nov 12, 2019 10:40
--- NOTE | 2019-11-12 11:36 | PDOC ---
Infectious Disease Note Vital Sign Vital Signs Vital Signs Date Time Temp Pulse Resp B/P (MAP) Pulse Ox O2 Delivery O2 Flow Rate FiO2 11/12/19 07:20 96.9 59 16 163/71 (101) 98 Room Air 96.9 11/11/19 20:00 2.0 Physical Exam PHYSICAL EXAM HEENT: Normal cephalic atraumatic, external auditory canals are patent EYES: Extraocular muscles are intact, pupils are equally round and reactive to light and accommodation MUSCULOSKELETAL: Well developed, well nourished, good range of motion ENDOCRINE: No thyromegaly was palpated LYMPHATICS: No cervical chain or axillary nodes were noted HEMATOPOIETIC: No bruising NECK: Supple, no JVD, no thyromegaly was noted. LUNGS: Clear to auscultation in all lung cronin without rhonchi or wheezing. HEART: RRR, S1, S2 present. Peripheral pulses intact, no obvious murmurs were noted. ABDOMEN: He has decreased bowel sounds. EXTREMITIES: Without any cyanosis, clubbing, or edema. Pedal pulses intact, Homans sign is negative. NEUROLOGIC: He is more alert now. PSYCHIATRIC: Normal affect, normal mood. Stable. SKIN: He is slightly jaundiced. VASCULAR: Good capillary refill, neurovascular bundle appears to be intact. Labs Lab Laboratory Tests Test 11/11/19 12:10 11/12/19 03:30 Red Blood Count 3.19 x10^6/uL (4.30-5.70) 2.74 x10^6/uL (4.30-5.70) Absolute Reticulocyte Count 0.052 x10^6/uL (0.020-0.120) Percent Reticulocyte Count 1.6 % (0.5-2.3) Immature Reticulocyte Fraction 0.44 (0.20-0.60) Hepatitis A IgM Antibody Nonreactive (Nonreactive) Hepatitis B Surface Antigen Nonreactive (Nonreactive) Hepatitis B Core IgM Antibody Nonreactive (Nonreactive) Hepatitis C IgG Antibody Nonreactive (Nonreactive) White Blood Count 17.3 x10^3/uL (4.0-11.0) Hemoglobin 8.9 g/dL (13.0-17.5) Hematocrit 26.9 % (39.0-53.0) Mean Corpuscular Volume 98 fL (79-100) Mean Corpuscular Hemoglobin 32 pg (25-35) Mean Corpuscular Hemoglobin Concent 33 g/dL (31-37) Red Cell Distribution Width 16.0 % (11.5-14.5) Platelet Count 67 x10^3/uL (140-400) Neutrophils (%) (Auto) 92 % (31-73) Lymphocytes (%) (Auto) 4 % (24-48) Monocytes (%) (Auto) 4 % (0-9) Eosinophils (%) (Auto) 1 % (0-3) Basophils (%) (Auto) 0 % (0-3) Neutrophils # (Auto) 15.9 x10^3/uL (1.8-7.7) Lymphocytes # (Auto) 0.6 x10^3/uL (1.0-4.8) Monocytes # (Auto) 0.7 x10^3/uL (0.0-1.1) Eosinophils # (Auto) 0.1 x10^3/uL (0.0-0.7) Basophils # (Auto) 0.0 x10^3/uL (0.0-0.2) Segmented Neutrophils % 86 % (35-66) Band Neutrophils % 11 % (0-9) Lymphocytes % 3 % (24-48) Dohle Bodies Present Platelet Estimate Decreased (ADEQUATE) Anisocytosis Present Sodium Level 136 mmol/L (136-145) Potassium Level 4.0 mmol/L (3.5-5.1) Chloride Level 102 mmol/L (98-107) Carbon Dioxide Level 25 mmol/L (21-32) Anion Gap 9 (6-14) Blood Urea Nitrogen 48 mg/dL (8-26) Creatinine 4.9 mg/dL (0.7-1.3) Estimated GFR (Cockcroft-Gault) 11.6 Glucose Level 66 mg/dL (70-99) Calcium Level 6.8 mg/dL (8.5-10.1) Iron Level 6 ug/dL (65-175) Total Iron Binding Capacity 101 ug/dL (250-450) Iron Saturation 6 % (15-34) Total Bilirubin 0.4 mg/dL (0.2-1.0) Direct Bilirubin 0.2 mg/dL (0.0-0.2) Aspartate Amino Transf (AST/SGOT) 63 U/L (15-37) Alanine Aminotransferase (ALT/SGPT) 120 U/L (16-63) Alkaline Phosphatase 99 U/L (46-116) Total Protein 4.4 g/dL (6.4-8.2) Albumin 1.8 g/dL (3.4-5.0) Micro Microbiology 11/10/19 Blood Culture - Preliminary, Resulted NO GROWTH AFTER 1 DAY Objective Assessment Sepsis with lactic acidosis, POA Colitis Pancytopenia, WBC now increased Fever, improved Diarrhea, C. 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 The chart was reviewed. The case was discussed. Discussed with Nurse. Add stool cultures. Agree with the plan of care. CLAUDIA ABDULLAHI APRN Nov 12, 2019 11:36 VERO LERNER MD Nov 12, 2019 14:14
--- NOTE | 2019-11-12 12:15 | CONS ---
DATE OF CONSULTATION: 11/12/2019 Wilfredo Arita, nurse practitioner, dictating for Jose Cruz Ramirez MD, Infectious Disease. REFERRING PHYSICIAN: Josafat Parmar MD REASON FOR CONSULT: Sepsis. HISTORY OF PRESENT ILLNESS: This patient is a 79-year-old male with a history of chronic kidney disease; on hemodialysis, COPD and tobaccoism. About 2 days ago, during dialysis, the patient said he developed acute onset of nausea and vomiting followed by diarrhea. Symptoms persisted prompting the ER visit. On arrival, he had a fever, T-max 104.2 and lactic acid 2.2. He is also pancytopenic. A CT abdomen/pelvis scan demonstrated mild diffuse wall thickening involving the descending and sigmoid colon, favoring colitis, maybe infectious or inflammatory. Small bilateral pleural effusions also noted. No free abdominal air fluid or obstruction. He was admitted and started on piperacillin/tazobactam. The patient says he feels a little bit better today. His abdomen is still sore and he is still having diarrhea, one so far today. The nausea and vomiting have settled down some. He has remained afebrile over the last 24 hours. Denies chills, sweats, or body aches. He is and lives at home. He says his is well. He denies change in diet or dining out. He denies recent antibiotics within the last several months. He denies abdominal cramps or bloating. He makes some urine, but not as much since admission. He occasionally feels short of air. He denies chest pain, cough, or headache. Denies rash or itching. PAST MEDICAL HISTORY: Chronic kidney disease; on hemodialysis, COPD, tobaccoism, hypertension, CHF, AAA, cardiomyopathy, hyperlipidemia, atrial flutter, Rios esophagitis, colonic polyps, hemorrhoids, hernia, gastroesophageal reflux, history of prostate cancer, arthritis, depression and anxiety, anemia, hyperparathyroidism. PAST SURGICAL HISTORY: AV fistula creation, left inguinal hernia repair, cataract extraction, endoscopy. FAMILY HISTORY: Coronary artery disease and hypertension. SOCIAL HISTORY: The patient is and lives at home. 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 He does not have any pets. He is a current smoker. ALLERGIES: MULTIPLE ALLERGIES LISTED, INCLUDING NITROFURANTOIN, for which he is uncertain of reaction. MEDICATIONS: Reviewed on the MAR and includes piperacillin/tazobactam. REVIEW OF SYSTEMS: As per HPI, otherwise all other review of systems are negative. PHYSICAL EXAMINATION: VITAL SIGNS: Temperature is 96.9, blood pressure 163/71, heart rate 59, respiratory rate 16, pulse oximetry is 98% on room air. GENERAL: The patient is propped up in bed, alert, dialyzing, in no apparent distress. HEENT: Pupils equally round, reactive. Normal conjunctivae. Oropharynx pink and moist. No lesions seen. NECK: Supple. LUNGS: Clear to auscultation. No accessory muscle use. HEART: S1 and S2. ABDOMEN: Obese, soft, mildly tender, diffuse. No guarding. EXTREMITIES: No gross edema or cyanosis. LUE-AV fistula unremarkable. SKIN: Warm to touch. Denies rash. NEUROLOGIC: Alert and answers questions appropriately. LABORATORY DATA: Today's WBC 17.3 from 2.1 on admission; hemoglobin 8.9; platelets 67,000; segs 86%; bands 11%. Sodium 136, potassium 4.0, creatinine 4.9, BUN 48, glucose 66. Lactic acid 1.8 from 2.2, total bilirubin 0.4, AST 63 from 291 on admission, ALT 120 from 187, alkaline phosphatase 99 from 207, albumin 1.8, lipase 40. Urinalysis from 11/10/2019 unremarkable for infection. Blood cultures from the negative to date. CT abdomen/pelvis scan per [facility]. Head CT reviewed. Abdominal ultrasound for elevated LFTs showed edematous gallbladder wall thickening, no biliary ductal dilatation, mild right pleural effusion, increased right renal parenchymal echogenicity. Chest x-ray: Mild patchy interstitial opacities bilaterally. ASSESSMENT: 1. Sepsis with lactic acidosis present on admission. 2. Colitis. 3. Pancytopenia. WBC count now increased. 4. Fever, improved. 5. Transaminitis. 6. Chronic kidney disease, on hemodialysis via arteriovenous fistula. 7. Severe protein-calorie malnutrition. 8. Chronic obstructive pulmonary disease. 9. Hypertension. 10. History of prostate cancer. 11. History of atrial flutter. 12. Tobaccoism. PLAN: 1. Continue piperacillin/tazobactam. 2. Follow up on culture results, which are negative to date. 3. Monitor laboratory values. 4. Maintain aspiration precautions. 5. Supportive care. Thank you, Dr. Parmar, for asking us to participate in this patient's care. Should you have further questions or concerns, please call. JOSE CRUZ RAMIREZ MD DR: ALEJANDRA/stephanie JOB#: [id number] / [id number] LILLY
--- NOTE | 2019-11-12 13:55 | PDOC ---
PROGRESS NOTES Date of Service DATE: 11/12/19 TIME: 13:52 Subjective Subjective IN FOLLOW UP OF ESRD Objective Objective Vital Signs Date Time Temp Pulse Resp B/P (MAP) Pulse Ox O2 Delivery O2 Flow Rate FiO2 11/12/19 08:00 Room Air 11/12/19 07:20 96.9 59 16 163/71 (101) 98 96.9 11/11/19 20:00 2.0 Intake and Output 11/12/19 07:00 Intake Total 1120 ml Output Total 400 ml Balance 720 ml Intake Oral 1120 ml Output Urine Total 400 ml # Voids 1 # Bowel Movements 4 Physical Exam Physical Exam PUI FOR COVID 19 SO NO BEDSIDE EXAM Diagnosis RENAL FAILURE: ESRD Assessment Assessment Problems Medical Problems: (1) Colitis Status: Acute (2) Delirium Status: Acute (3) Sepsis Status: Acute Plan Plan of Care DIALYSIS TODAY AND TOLERATED WELL. EPOGEN PER HGB Comment Review of Relevant I have reviewed the following items karey (where applicable) has been applied. Labs Laboratory Tests Test 11/10/19 15:00 11/10/19 15:07 11/11/19 00:10 11/11/19 09:45 White Blood Count 2.1 x10^3/uL (4.0-11.0) Red Blood Count 3.27 x10^6/uL (4.30-5.70) Hemoglobin 11.0 g/dL (13.0-17.5) Hematocrit 32.0 % (39.0-53.0) Mean Corpuscular Volume 98 fL (79-100) Mean Corpuscular Hemoglobin 34 pg (25-35) Mean Corpuscular Hemoglobin Concent 34 g/dL (31-37) Red Cell Distribution Width 15.6 % (11.5-14.5) Platelet Count 91 x10^3/uL (140-400) Neutrophils (%) (Auto) 95 % (31-73) Lymphocytes (%) (Auto) 4 % (24-48) Monocytes (%) (Auto) 0 % (0-9) Eosinophils (%) (Auto) 1 % (0-3) Basophils (%) (Auto) 0 % (0-3) Neutrophils # (Auto) 1.9 x10^3/uL (1.8-7.7) Lymphocytes # (Auto) 0.1 x10^3/uL (1.0-4.8) Monocytes # (Auto) 0.0 x10^3/uL (0.0-1.1) Eosinophils # (Auto) 0.0 x10^3/uL (0.0-0.7) Basophils # (Auto) 0.0 x10^3/uL (0.0-0.2) Segmented Neutrophils % 82 % (35-66) Band Neutrophils % 6 % (0-9) Lymphocytes % 10 % (24-48) Metamyelocytes % 2 % (0-0) Toxic Vacuolation Slight Platelet Estimate Decreased (ADEQUATE) Target Cells Sodium Level 142 mmol/L (136-145) Potassium Level 3.0 mmol/L (3.5-5.1) Chloride Level 105 mmol/L (98-107) Carbon Dioxide Level 29 mmol/L (21-32) Anion Gap 8 (6-14) Blood Urea Nitrogen 24 mg/dL (8-26) Creatinine 3.2 mg/dL (0.7-1.3) Estimated GFR (Cockcroft-Gault) 18.9 BUN/Creatinine Ratio 8 (6-20) Glucose Level 71 mg/dL (70-99) Lactic Acid Level 2.2 mmol/L (0.4-2.0) 1.8 mmol/L (0.4-2.0) Calcium Level 8.1 mg/dL (8.5-10.1) Total Bilirubin 1.1 mg/dL (0.2-1.0) Aspartate Amino Transf (AST/SGOT) 291 U/L (15-37) Alanine Aminotransferase (ALT/SGPT) 187 U/L (16-63) Alkaline Phosphatase 207 U/L (46-116) Troponin I Quantitative 0.046 ng/mL (0.000-0.055) Total Protein 5.3 g/dL (6.4-8.2) Albumin 2.2 g/dL (3.4-5.0) Albumin/Globulin Ratio 0.7 (1.0-1.7) Lipase 40 U/L (73-393) Coronavirus (PCR) Not detected (Not Detected) Urine Collection Type U cath Urine Color Yellow Urine Clarity Clear Urine pH 8.0 (<5.0-8.0) Urine Specific [place] 1.010 (1.000-1.030) Urine Protein >=300 mg/dL (NEG-TRACE) Urine Glucose (UA) Negative mg/dL (NEG) Urine Ketones (Stick) Negative mg/dL (NEG) Urine Blood Small (NEG) Urine Nitrite Negative (NEG) Urine Bilirubin Negative (NEG) Urine Urobilinogen Dipstick 0.2 mg/dL (0.2 mg/dL) Urine Leukocyte Esterase Negative (NEG) Urine RBC 6-10 /HPF (0-2) Urine WBC Rare /HPF (0-4) Urine Squamous Epithelial Cells Occ /LPF Urine Bacteria 0 /HPF (0-FEW) Clostridium difficile Toxin (PCR) Negative (NEGATIVE) Test 11/11/19 12:10 11/12/19 03:30 Red Blood Count 3.19 x10^6/uL (4.30-5.70) 2.74 x10^6/uL (4.30-5.70) Absolute Reticulocyte Count 0.052 x10^6/uL (0.020-0.120) Percent Reticulocyte Count 1.6 % (0.5-2.3) Immature Reticulocyte Fraction 0.44 (0.20-0.60) Hepatitis A IgM Antibody Nonreactive (Nonreactive) Hepatitis B Surface Antigen Nonreactive (Nonreactive) Hepatitis B Core IgM Antibody Nonreactive (Nonreactive) Hepatitis C IgG Antibody Nonreactive (Nonreactive) White Blood Count 17.3 x10^3/uL (4.0-11.0) Hemoglobin 8.9 g/dL (13.0-17.5) Hematocrit 26.9 % (39.0-53.0) Mean Corpuscular Volume 98 fL (79-100) Mean Corpuscular Hemoglobin 32 pg (25-35) Mean Corpuscular Hemoglobin Concent 33 g/dL (31-37) Red Cell Distribution Width 16.0 % (11.5-14.5) Platelet Count 67 x10^3/uL (140-400) Neutrophils (%) (Auto) 92 % (31-73) Lymphocytes (%) (Auto) 4 % (24-48) Monocytes (%) (Auto) 4 % (0-9) Eosinophils (%) (Auto) 1 % (0-3) Basophils (%) (Auto) 0 % (0-3) Neutrophils # (Auto) 15.9 x10^3/uL (1.8-7.7) Lymphocytes # (Auto) 0.6 x10^3/uL (1.0-4.8) Monocytes # (Auto) 0.7 x10^3/uL (0.0-1.1) Eosinophils # (Auto) 0.1 x10^3/uL (0.0-0.7) Basophils # (Auto) 0.0 x10^3/uL (0.0-0.2) Segmented Neutrophils % 86 % (35-66) Band Neutrophils % 11 % (0-9) Lymphocytes % 3 % (24-48) Dohle Bodies Present Platelet Estimate Decreased (ADEQUATE) Anisocytosis Present Sodium Level 136 mmol/L (136-145) Potassium Level 4.0 mmol/L (3.5-5.1) Chloride Level 102 mmol/L (98-107) Carbon Dioxide Level 25 mmol/L (21-32) Anion Gap 9 (6-14) Blood Urea Nitrogen 48 mg/dL (8-26) Creatinine 4.9 mg/dL (0.7-1.3) Estimated GFR (Cockcroft-Gault) 11.6 Glucose Level 66 mg/dL (70-99) Calcium Level 6.8 mg/dL (8.5-10.1) Iron Level 6 ug/dL (65-175) Total Iron Binding Capacity 101 ug/dL (250-450) Iron Saturation 6 % (15-34) Total Bilirubin 0.4 mg/dL (0.2-1.0) Direct Bilirubin 0.2 mg/dL (0.0-0.2) Aspartate Amino Transf (AST/SGOT) 63 U/L (15-37) Alanine Aminotransferase (ALT/SGPT) 120 U/L (16-63) Alkaline Phosphatase 99 U/L (46-116) Total Protein 4.4 g/dL (6.4-8.2) Albumin 1.8 g/dL (3.4-5.0) Laboratory Tests Test 11/12/19 03:30 White Blood Count 17.3 x10^3/uL (4.0-11.0) Red Blood Count 2.74 x10^6/uL (4.30-5.70) Hemoglobin 8.9 g/dL (13.0-17.5) Hematocrit 26.9 % (39.0-53.0) Mean Corpuscular Volume 98 fL (79-100) Mean Corpuscular Hemoglobin 32 pg (25-35) Mean Corpuscular Hemoglobin Concent 33 g/dL (31-37) Red Cell Distribution Width 16.0 % (11.5-14.5) Platelet Count 67 x10^3/uL (140-400) Neutrophils (%) (Auto) 92 % (31-73) Lymphocytes (%) (Auto) 4 % (24-48) Monocytes (%) (Auto) 4 % (0-9) Eosinophils (%) (Auto) 1 % (0-3) Basophils (%) (Auto) 0 % (0-3) Neutrophils # (Auto) 15.9 x10^3/uL (1.8-7.7) Lymphocytes # (Auto) 0.6 x10^3/uL (1.0-4.8) Monocytes # (Auto) 0.7 x10^3/uL (0.0-1.1) Eosinophils # (Auto) 0.1 x10^3/uL (0.0-0.7) Basophils # (Auto) 0.0 x10^3/uL (0.0-0.2) Segmented Neutrophils % 86 % (35-66) Band Neutrophils % 11 % (0-9) Lymphocytes % 3 % (24-48) Dohle Bodies Present Platelet Estimate Decreased (ADEQUATE) Anisocytosis Present Sodium Level 136 mmol/L (136-145) Potassium Level 4.0 mmol/L (3.5-5.1) Chloride Level 102 mmol/L (98-107) Carbon Dioxide Level 25 mmol/L (21-32) Anion Gap 9 (6-14) Blood Urea Nitrogen 48 mg/dL (8-26) Creatinine 4.9 mg/dL (0.7-1.3) Estimated GFR (Cockcroft-Gault) 11.6 Glucose Level 66 mg/dL (70-99) Calcium Level 6.8 mg/dL (8.5-10.1) Iron Level 6 ug/dL (65-175) Total Iron Binding Capacity 101 ug/dL (250-450) Iron Saturation 6 % (15-34) Total Bilirubin 0.4 mg/dL (0.2-1.0) Direct Bilirubin 0.2 mg/dL (0.0-0.2) Aspartate Amino Transf (AST/SGOT) 63 U/L (15-37) Alanine Aminotransferase (ALT/SGPT) 120 U/L (16-63) Alkaline Phosphatase 99 U/L (46-116) Total Protein 4.4 g/dL (6.4-8.2) Albumin 1.8 g/dL (3.4-5.0) Microbiology 11/10/19 Blood Culture - Preliminary, Resulted NO GROWTH AFTER 1 DAY Medications Current Medications Ceftriaxone Sodium (Rocephin) 1 gm 1X ONCE IVP Last administered on 11/10/19at 14:59; Start 11/10/19 at 14:45; Stop 11/10/19 at 14:46; Status DC Acetaminophen (Tylenol Supp) 650 mg 1X ONCE MI Last administered on 11/10/19at 15:01; Start 11/10/19 at 15:00; Stop 11/10/19 at 15:11; Status DC Sodium Chloride 1,000 ml @ 1,000 mls/hr 1X ONCE IV Last administered on 11/10/19at 17:30; Start 11/10/19 at 17:30; Stop 11/10/19 at 18:46; Status DC Piperacillin Sod/ Tazobactam Sod (Zosyn Per Pharmacy) 1 each PRN DAILY PRN MC SEE COMMENTS; Start 11/10/19 at 20:00 Piperacillin Sod/ Tazobactam Sod 2.25 gm/Sodium Chloride 50 ml @ 100 mls/hr Q8HRS IV Last administered on 11/12/19at 06:35; Start 11/10/19 at 22:00 Potassium Chloride (Klor-Con) 40 meq 1X ONCE PO Last administered on 11/10/19at 21:35; Start 11/10/19 at 21:30; Stop 11/10/19 at 21:31; Status DC Alprazolam (Xanax) 0.5 mg PRN Q6HRS PRN PO ANXIETY / AGITATION; Start 11/11/19 at 07:30 Apixaban (Eliquis) 2.5 mg BID PO Last administered on 11/11/19at 20:29; Start 11/11/19 at 09:00 Bupropion HCl (Wellbutrin Xl) 150 mg DAILY PO Last administered on 11/11/19at 09:46; Start 11/11/19 at 09:00 Carvedilol (Coreg) 6.25 mg BIDWMEALS PO Last administered on 11/11/19 16:02; Start 11/11/19 at 08:00 Vitamin B Complex/ Vitamin C (Mandi-Debbie) 1 tab DAILY PO Last administered on 11/11/19 09:46; Start 11/11/19 at 09:00 Acetaminophen/ Hydrocodone Bitart (Lortab 5/325) 1 tab QIDPRN PRN PO MODERATE PAIN Last administered on 11/11/19 16:03; Start 11/11/19 at 07:30 Isosorbide Mononitrate (Imdur) 30 mg BID PO ; Start 11/11/19 at 09:00 Pantoprazole Sodium (Protonix) 40 mg BIDAC PO Last administered on 11/12/19 08:12; Start 11/11/19 at 08:00 Simvastatin (Zocor) 30 mg QHS PO Last administered on 11/11/19 20:29; Start 11/11/19 at 21:00 Sucralfate (Carafate) 1 gm QIDACHS PO Last administered on 11/12/19 08:12; Start 11/11/19 at 08:00 Tamsulosin HCl (Flomax) 0.4 mg BID PO Last administered on 11/11/19 20:29; Start 11/11/19 at 09:00 Non-Formulary Medication (Albuterol Sulfate (Ventolin Hfa Inhaler)) 2 puff QID INH ; Start 11/11/19 at 09:00; Status UNV Non-Formulary Medication (Budesonide/ Formoterol Fumarate (Symbicort 160-4.5 Mcg Inhaler)) 2 puff BID IH ; Start 11/11/19 at 09:00; Stop 11/11/19 at 16:08; Status DC Vitamin D (Vitamin D3) 2,000 unit DAILY PO Last administered on 11/11/19 09:46; Start 11/11/19 at 09:00 Fish Oil (Fish Oil) 1,000 mg DAILY PO Last administered on 11/11/19 09:48; Start 11/11/19 at 09:00 Info (Anti-Coagulation Monitoring By Pharmacy) 1 each PRN DAILY PRN MC SEE COMMENTS Last administered on 11/11/19 15:46; Start 8/14/20 at 08:00 Albuterol Sulfate (Ventolin Neb Soln) 2.5 mg Q6HRS NEB ; Start 11/11/19 at 08:00; Stop 11/11/19 at 12:40; Status DC Budesonide (Pulmicort) 0.5 mg RTBID NEB ; Start 11/11/19 at 08:15; Stop 11/11/19 at 12:41; Status DC Albuterol Sulfate (Ventolin Hfa) 1 puff RTQID INH Last administered on 0at 20:28; Start 11/11/19 at 09:15 Non-Formulary Medication (Budesonide/ Formoterol Fumarate (Symbicort 160-4.5 Mcg Inhaler)) 2 puff BID INH ; Start 11/11/19 at 16:08; Status Cancel Non-Formulary Medication (Budesonide/ Formoterol Fumarate (Symbicort 160-4.5 Mcg Inhaler)) 2 puff BID INH ; Start 11/12/19 at 09:00 Lidocaine HCl (Xylocaine-Mpf 1% 2ml Vial) 2 ml STK-MED ONCE .ROUTE ; Start 11/12/19 at 08:37; Stop 11/12/19 at 08:37; Status DC Active Scripts Active Reported Fish Oil 1,000 mg Softgel ([place]-3/Dha/Epa/Fish Oil) 1,000 Mg Capsule 1,000 Mg PO DAILY Sucralfate 1 Gm Tablet 1 Gm PO QID Vitamin D3 (Cholecalciferol (Vitamin D3)) 10 Mcg Tablet 2,000 Units PO DAILY Mandi-Debbie Tablet (Folic Acid/Vitamin B Comp W-C) 0.8 Mg Tablet 0.8 Mg PO DAILY Isosorbide Mononitrate Er (Isosorbide Mononitrate) 30 Mg Tab.er.24h 30 Mg PO BID Eliquis (Apixaban) 2.5 Mg Tablet 2.5 Mg PO BID [place] 5-325 Tablet (Acetaminophen/Hydrocodone Bitart) 1 Each Tablet 1 Tab PO Q6- 8HRS PRN Benadryl (Diphenhydramine Hcl) 25 Mg Capsule 50 Mg PO PRN Q6HRS PRN Xanax (Alprazolam) 0.5 Mg Tablet 0.5 Mg PO PRN Q6HRS PRN Flomax (Tamsulosin Hcl) 0.4 Mg Cap.er.24h 0.4 Mg PO BID Simvastatin 20 Mg Tablet 30 Mg PO HS Pantoprazole Sodium (Pantoprazole Sodium) 40 Mg Tablet.dr 40 Mg PO BID Carvedilol (Carvedilol) 6.25 Mg Tablet 6.25 Mg PO BIDWMEALS Bupropion Xl (Bupropion Hcl) 150 Mg Tab.er.24h 150 Mg PO QAM Symbicort 160-4.5 Mcg Inhaler (Budesonide/Formoterol Fumarate) 10.2 Gm Hfa.aer.ad 2 Puff IH BID Ventolin Hfa Inhaler (Albuterol Sulfate) 18 Gm Hfa.aer.ad 2 Puff INH QID Vitals/I & O Vital Sign - Last 24 Hours 11/11/19 11/11/19 11/11/19 11/11/19 15:00 16:02 16:03 17:03 Temp 97.6 97.6 Pulse 73 73 Resp 18 17 18 B/P (MAP) 132/64 (86) 136/62 Pulse Ox 97 97 O2 Delivery Nasal Cannula Nasal Cannula Nasal Cannula O2 Flow Rate 2.0 2.0 2.0 11/11/19 11/11/19 11/11/19 11/12/19 19:00 20:00 23:45 02:16 Temp 97.6 96.5 97.3 97.6 96.5 97.3 Pulse 59 53 52 Resp 18 16 16 B/P (MAP) 104/55 (71) 129/61 (83) 124/60 (81) Pulse Ox 100 97 O2 Delivery Room Air Nasal Cannula Room Air Room Air O2 Flow Rate 2.0 11/12/19 11/12/19 07:20 08:00 Temp 96.9 96.9 Pulse 59 Resp 16 B/P (MAP) 163/71 (101) Pulse Ox 98 O2 Delivery Room Air Room Air Intake and Output 11/11/19 11/11/19 11/12/19 15:00 23:00 07:00 Intake Total 600 ml 320 ml 200 ml Output Total 400 ml Balance 600 ml 320 ml -200 ml Justicifation of Admission Dx: Justifications for Admission: Justification of Admission Dx: Yes Nutrition Consultation Dietary Evaluation: Recommendations by RD: Dietary education by RD, Increase Calorie Intake, Protein supplementation Comments: rec advance to renal diet when able Expected Outcomes/Goals: diet adv/ tolerance Malnutrition Findings: Food and Nutrition Intake (Mod: <75% est energy req 7days Weight Status: Appropriate Fluid Accumulation (Non-Severe: Mild depletion MARITA DICKINSON MD Nov 12, 2019 13:55
[2019-11-12] MEDS: APIXABAN 2.5 MG TABLET. PO SCH ×2 (14:14→20:59)
[2019-11-12] MEDS: CHOLECALCIFEROL (VITAMIN D3) 1,000 UNIT TABLET PO SCH (14:14)
[2019-11-12] MEDS: buPROPion XL 150 MG TAB.ER.24H. PO SCH (14:15)
[2019-11-12] MEDS: FOLIC/VIT B COMP W-C (RENAL) TABLET. PO SCH (14:15)
[2019-11-12] MEDS: TAMSULOSIN 0.4 MG CAP.ER.24H. PO SCH ×2 (14:15→20:59)
[2019-11-12] MEDS: OMEGA-3 FATTY ACIDS/FISH OIL 1,000 MG CAPSULE. PO SCH (14:15)
[2019-11-12] MEDS: BREO ELLIPTA INH SCH ×2 (14:16→20:58)
--- NOTE | 2019-11-12 14:54 | NUR ---
Patient underwent hemodialysis this morning, VSS, came back to the unit at 1305. Positive blood culture result (gram negative rods), Dr. Margi vasquez notified, order for repeat blood culture in AM received.
[2019-11-12 15:22] VITALS: BP 137/65
--- NOTE | 2019-11-12 15:41 | PDOC ---
GI PROGRESS NOTES Date of Service: Date/Time DATE: 11/12/19 TIME: 15:39 Subjective Subjective feels better - less diarrhea- wants real food as tolerated Objective Vitals Vital Signs Date Time Temp Pulse Resp B/P (MAP) Pulse Ox O2 Delivery O2 Flow Rate FiO2 11/12/19 15:22 65 137/65 (89) 11/12/19 08:00 Room Air 11/12/19 07:20 96.9 59 16 163/71 (101) 98 Room Air 96.9 11/12/19 02:16 97.3 52 16 124/60 (81) 97 Room Air 97.3 11/11/19 23:45 96.5 53 16 129/61 (83) 100 Room Air 96.5 11/11/19 20:00 Nasal Cannula 2.0 11/11/19 19:00 97.6 59 18 104/55 (71) Room Air 97.6 11/11/19 17:03 18 Nasal Cannula 2.0 11/11/19 16:03 17 97 Nasal Cannula 2.0 11/11/19 16:02 73 136/62 Labs Labs Laboratory Tests Test 11/12/19 03:30 White Blood Count 17.3 x10^3/uL (4.0-11.0) Red Blood Count 2.74 x10^6/uL (4.30-5.70) Hemoglobin 8.9 g/dL (13.0-17.5) Hematocrit 26.9 % (39.0-53.0) Mean Corpuscular Volume 98 fL (79-100) Mean Corpuscular Hemoglobin 32 pg (25-35) Mean Corpuscular Hemoglobin Concent 33 g/dL (31-37) Red Cell Distribution Width 16.0 % (11.5-14.5) Platelet Count 67 x10^3/uL (140-400) Neutrophils (%) (Auto) 92 % (31-73) Lymphocytes (%) (Auto) 4 % (24-48) Monocytes (%) (Auto) 4 % (0-9) Eosinophils (%) (Auto) 1 % (0-3) Basophils (%) (Auto) 0 % (0-3) Neutrophils # (Auto) 15.9 x10^3/uL (1.8-7.7) Lymphocytes # (Auto) 0.6 x10^3/uL (1.0-4.8) Monocytes # (Auto) 0.7 x10^3/uL (0.0-1.1) Eosinophils # (Auto) 0.1 x10^3/uL (0.0-0.7) Basophils # (Auto) 0.0 x10^3/uL (0.0-0.2) Segmented Neutrophils % 86 % (35-66) Band Neutrophils % 11 % (0-9) Lymphocytes % 3 % (24-48) Dohle Bodies Present Platelet Estimate Decreased (ADEQUATE) Anisocytosis Present Sodium Level 136 mmol/L (136-145) Potassium Level 4.0 mmol/L (3.5-5.1) Chloride Level 102 mmol/L (98-107) Carbon Dioxide Level 25 mmol/L (21-32) Anion Gap 9 (6-14) Blood Urea Nitrogen 48 mg/dL (8-26) Creatinine 4.9 mg/dL (0.7-1.3) Estimated GFR (Cockcroft-Gault) 11.6 Glucose Level 66 mg/dL (70-99) Calcium Level 6.8 mg/dL (8.5-10.1) Iron Level 6 ug/dL (65-175) Total Iron Binding Capacity 101 ug/dL (250-450) Iron Saturation 6 % (15-34) Total Bilirubin 0.4 mg/dL (0.2-1.0) Direct Bilirubin 0.2 mg/dL (0.0-0.2) Aspartate Amino Transf (AST/SGOT) 63 U/L (15-37) Alanine Aminotransferase (ALT/SGPT) 120 U/L (16-63) Alkaline Phosphatase 99 U/L (46-116) Total Protein 4.4 g/dL (6.4-8.2) Albumin 1.8 g/dL (3.4-5.0) Physical Exam Physical Exam Chest- clear abd- soft nontender normal bowel sounds Assessment Assessment Diarrhea ? colitis on CT- stool cultures pending but C diff was negative Initially pancytopenic but now WBC up Hx of PUD but no clear peptic symptoms Plan Plan await stool cultures go ahead with renal diet as tolerated Justicifation of Admission Dx: Justifications for Admission: Justification of Admission Dx: Yes NEAL VALDEZ MD Nov 12, 2019 15:41
[2019-11-12 19:50] VITALS: BP 153/70
[2019-11-12] MEDS: SIMVASTATIN 10 MG TABLET PO SCH (20:59)
[2019-11-12 23:25] VITALS: BP 163/82
[2019-11-13 03:33] VITALS: BP 164/72
[2019-11-13] MEDS: PIPERACILLIN/TAZOBACTAM 2.25 GM in IV NORMAL SALINE 50ML 50 ML IV SCH ×2 (06:29→14:39)
[2019-11-13 07:00] VITALS: BP 153/54
[2019-11-13] MEDS: SUCRALFATE 1 GM TABLET. PO SCH ×4 (08:01→20:56)
[2019-11-13] MEDS: PANTOPRAZOLE 40 MG TABLET.DR. PO SCH ×2 (08:01→16:54)
[2019-11-13] MEDS: CHOLECALCIFEROL (VITAMIN D3) 1,000 UNIT TABLET PO SCH (09:30)
[2019-11-13] MEDS: APIXABAN 2.5 MG TABLET. PO SCH ×2 (09:31→20:56)
[2019-11-13] MEDS: CARVEDILOL 6.25 MG TABLET. PO SCH ×2 (09:31→16:55)
[2019-11-13] MEDS: ISOSORBIDE MONONITRATE ER 30 MG TAB.ER.24H PO SCH ×2 (09:31→20:56)
[2019-11-13] MEDS: buPROPion XL 150 MG TAB.ER.24H. PO SCH (09:32)
[2019-11-13] MEDS: TAMSULOSIN 0.4 MG CAP.ER.24H. PO SCH ×2 (09:32→20:55)
[2019-11-13] MEDS: LACTOBACILLUS RHAMNOSUS GG 1 CAPSULE. PO SCH ×2 (09:32→20:56)
[2019-11-13] MEDS: OMEGA-3 FATTY ACIDS/FISH OIL 1,000 MG CAPSULE. PO SCH (09:32)
[2019-11-13] MEDS: FOLIC/VIT B COMP W-C (RENAL) TABLET. PO SCH (09:32)
--- NOTE | 2019-11-13 09:43 | PDOC ---
PULMONARY PROGRESS NOTES DATE: 11/13/19 TIME: 09:40 Subjective feels good, on ra, denies sob, has occ cough Vitals Vital Signs Date Time Temp Pulse Resp B/P (MAP) Pulse Ox O2 Delivery O2 Flow Rate FiO2 11/13/19 09:31 61 153/54 11/13/19 08:05 Room Air 11/13/19 03:33 98.0 18 93 98.0 General: Alert Lungs: Crackles Cardiovascular: S1, S2 Abdomen: Soft Neuro Exam: Alert Extremities: No Edema Labs Laboratory Tests Test 11/11/19 09:45 11/11/19 12:10 11/12/19 03:30 Clostridium difficile Toxin (PCR) Negative (NEGATIVE) Red Blood Count 3.19 x10^6/uL (4.30-5.70) 2.74 x10^6/uL (4.30-5.70) Absolute Reticulocyte Count 0.052 x10^6/uL (0.020-0.120) Percent Reticulocyte Count 1.6 % (0.5-2.3) Immature Reticulocyte Fraction 0.44 (0.20-0.60) Hepatitis A IgM Antibody Nonreactive (Nonreactive) Hepatitis B Surface Antigen Nonreactive (Nonreactive) Hepatitis B Core IgM Antibody Nonreactive (Nonreactive) Hepatitis C IgG Antibody Nonreactive (Nonreactive) White Blood Count 17.3 x10^3/uL (4.0-11.0) Hemoglobin 8.9 g/dL (13.0-17.5) Hematocrit 26.9 % (39.0-53.0) Mean Corpuscular Volume 98 fL (79-100) Mean Corpuscular Hemoglobin 32 pg (25-35) Mean Corpuscular Hemoglobin Concent 33 g/dL (31-37) Red Cell Distribution Width 16.0 % (11.5-14.5) Platelet Count 67 x10^3/uL (140-400) Neutrophils (%) (Auto) 92 % (31-73) Lymphocytes (%) (Auto) 4 % (24-48) Monocytes (%) (Auto) 4 % (0-9) Eosinophils (%) (Auto) 1 % (0-3) Basophils (%) (Auto) 0 % (0-3) Neutrophils # (Auto) 15.9 x10^3/uL (1.8-7.7) Lymphocytes # (Auto) 0.6 x10^3/uL (1.0-4.8) Monocytes # (Auto) 0.7 x10^3/uL (0.0-1.1) Eosinophils # (Auto) 0.1 x10^3/uL (0.0-0.7) Basophils # (Auto) 0.0 x10^3/uL (0.0-0.2) Segmented Neutrophils % 86 % (35-66) Band Neutrophils % 11 % (0-9) Lymphocytes % 3 % (24-48) Dohle Bodies Present Platelet Estimate Decreased (ADEQUATE) Anisocytosis Present Sodium Level 136 mmol/L (136-145) Potassium Level 4.0 mmol/L (3.5-5.1) Chloride Level 102 mmol/L (98-107) Carbon Dioxide Level 25 mmol/L (21-32) Anion Gap 9 (6-14) Blood Urea Nitrogen 48 mg/dL (8-26) Creatinine 4.9 mg/dL (0.7-1.3) Estimated GFR (Cockcroft-Gault) 11.6 Glucose Level 66 mg/dL (70-99) Calcium Level 6.8 mg/dL (8.5-10.1) Iron Level 6 ug/dL (65-175) Total Iron Binding Capacity 101 ug/dL (250-450) Iron Saturation 6 % (15-34) Total Bilirubin 0.4 mg/dL (0.2-1.0) Direct Bilirubin 0.2 mg/dL (0.0-0.2) Aspartate Amino Transf (AST/SGOT) 63 U/L (15-37) Alanine Aminotransferase (ALT/SGPT) 120 U/L (16-63) Alkaline Phosphatase 99 U/L (46-116) Total Protein 4.4 g/dL (6.4-8.2) Albumin 1.8 g/dL (3.4-5.0) Medications Active Scripts Medications Dose Route/Sig Max Daily Dose Days Date Category Fish Oil 1,000 mg Softgel ([place]-3/Dha/Epa/Fish Oil) 1,000 Mg Capsule 1,000 Mg PO DAILY 11/10/19 Reported Sucralfate 1 Gm Tablet 1 Gm PO QID 11/10/19 Reported Vitamin D3 (Cholecalciferol (Vitamin D3)) 10 Mcg Tablet 2,000 Units PO DAILY 11/10/19 Reported Mandi-Debbie Tablet (Folic Acid/Vitamin B Comp W-C) 0.8 Mg Tablet 0.8 Mg PO DAILY 11/10/19 Reported Isosorbide Mononitrate Er (Isosorbide Mononitrate) 30 Mg Tab.er.24h 30 Mg PO BID 11/10/19 Reported Eliquis (Apixaban) 2.5 Mg Tablet 2.5 Mg PO BID 11/10/19 Reported [place] 5-325 Tablet (Acetaminophen/Hydrocodone Bitart) 1 Each Tablet 1 Tab PO Q6-8HRS PRN 06/07/19 Reported Benadryl (Diphenhydramine Hcl) 25 Mg Capsule 50 Mg PO PRN Q6HRS PRN 06/06/19 Reported Xanax (Alprazolam) 0.5 Mg Tablet 0.5 Mg PO PRN Q6HRS PRN 06/06/19 Reported Flomax (Tamsulosin Hcl) 0.4 Mg Cap.er.24h 0.4 Mg PO BID 03/11/19 Reported Simvastatin 20 Mg Tablet 30 Mg PO HS 03/11/19 Reported Pantoprazole Sodium (Pantoprazole Sodium) 40 Mg Tablet.dr 40 Mg PO BID 03/11/19 Reported Carvedilol (Carvedilol) 6.25 Mg Tablet 6.25 Mg PO BIDWMEALS 03/11/19 Reported Bupropion Xl (Bupropion Hcl) 150 Mg Tab.er.24h 150 Mg PO QAM 03/11/19 Reported Symbicort 160-4.5 Mcg Inhaler (Budesonide/Formoterol Fumarate) 10.2 Gm Hfa.aer.ad 2 Puff IH BID 03/11/19 Reported Ventolin Hfa Inhaler (Albuterol Sulfate) 18 Gm Hfa.aer.ad 2 Puff INH QID 03/11/19 Reported Impression . IMPRESSION: 1. Sepsis with lactic acidosis, POA. BC positive for GNR from 11/09. 2. Long history of tobacco use for 40+ years and he still smokes cigarettes. Likely underlying chronic obstructive pulmonary disease without exacerbation. 3. Abnormal CT abdomen and pelvis consistent with colitis. GI is following. 4. Severe protein-calorie malnutrition. 5. Abnormal LFTs, improving 6. esrd on hd 7. covid19 neg 11/09. BLOOD CULTURE Final GRAM NEGATIVE RODS, IN 1 OF 2 BOTTLES, ONE SET DRAWN CALLED TO CARLO GORMAN RN ON 6S AT 14:40 ON 11/12/19 DW MT Plan . RECOMMENDATIONS: 1. 02 titration to keep sat 92% 2. Follow all cultures. BC positive for GNR from 11/09. COVID-19 neg 3. start BD 4. Follow LFTs. 5. Improve nutritional status. 6. Follow GI recommendations. 7. Continue with present inhalers. 8. Anticoagulation with Eliquis per PCP for AFib. 9. Antibiotics per Infectious Disease. 10. Discussed with RN. We will follow along with you. MIGUEL MAXWELL MD Nov 13, 2019 09:43
--- NOTE | 2019-11-13 10:32 | PDOC ---
GI PROGRESS NOTES Date of Service: Date/Time DATE: 11/13/19 TIME: 10:31 Subjective Subjective Feels much better. Diarrhea is resolving. Tolerated dialysis yesterday. Tolerating renal diet Objective Vitals Vital Signs Date Time Temp Pulse Resp B/P (MAP) Pulse Ox O2 Delivery O2 Flow Rate FiO2 11/13/19 09:31 61 153/54 11/13/19 09:31 61 153/54 11/13/19 08:05 Room Air 11/13/19 03:33 98.0 72 18 164/72 (102) 93 Room Air 98.0 11/12/19 23:25 97.9 55 18 163/82 (109) 97 Room Air 97.9 11/12/19 21:00 Room Air 11/12/19 20:59 59 153/70 11/12/19 19:50 98.2 59 20 153/70 (97) 98 Room Air 98.2 11/12/19 16:45 65 137/65 11/12/19 15:22 65 137/65 (89) Physical Exam Physical Exam Chest- clear abd- soft nontender normal bowel sounds Assessment Assessment Diarrhea-clearly improved. ? colitis on CT- stool cultures pending but C diff was negative Initially pancytopenic but now WBC up Hx of PUD but no clear peptic symptoms Plan Plan await stool cultures Continue renal diet as tolerated Justicifation of Admission Dx: Justifications for Admission: Justification of Admission Dx: Yes NEAL VALDEZ MD Nov 13, 2019 10:32
--- NOTE | 2019-11-13 10:57 | PDOC ---
PROGRESS NOTES Date of Service: DATE: 11/13/19 TIME: 10:57 Chief Complaint Chief Complaint ASSESSMENT AND PLAN: Nausea, vomiting, Mild diffuse wall thickening involving the descending and sigmoid colon, favored represent colitis, may be infectious or inflammatory. diarrhea, pancytopenia abdominal pain, shortness of breath, abnormal chest x-ray, colitis C diff negative Initially pancytopenic but now WBC increasing Hx of PUD but no clear peptic symptoms small pleural effusion. sepsis acute metabolic encephalopathy , improving 11/12 Sepsis with lactic acidosis, POA. BC positive for GNR from 11/09. Colitis BLOOD CULTURE LC Preliminary Preliminary [[facility]] on 11/13/19 at 1445 [facility] Unless otherwise specified, Testing Performed by: [facility] [address] [place] [address] For Inquires, the Physician may contact the Microbiology department at [phone] admitted. consult GI and Pulmonary. IV fluids if Nephrology agrees. Consult Nephrology for dialysis management. Full code. P.r.n. Tylenol, p.r.n. Zofran, IV antibiotics, zosyn home meds, DVT prophylaxis. with neutropenic colitis, etiology to be determined. cultures and viral hepatitis serologies. Heme consult for possible BM biopsy. 38 min pt exam, chart review, > 50% of time spent with exam, chart review, pt care coordination History of Present Illness History of Present Illness 79-year-old male who has multiple medical issues. He smokes every day. He has renal failure. he presents with nausea, vomiting, and diarrhea, fever. He came in by EMS. It has been slowly worsening over the past couple of days, but an hour before dialysis each day is when it gets worse. He called dialysis today and stated he did not feel well. He had multiple episodes of nausea. He had some confusion. Vitals Vitals Vital Signs Date Time Temp Pulse Resp B/P (MAP) Pulse Ox O2 Delivery O2 Flow Rate FiO2 11/13/19 09:31 61 153/54 11/13/19 08:05 Room Air 11/13/19 07:00 98.4 12 96 98.4 Physical Exam Physical Exam HEENT: Normal cephalic atraumatic, external auditory canals are patent EYES: Extraocular muscles are intact, pupils are equally round and reactive to light and accommodation MUSCULOSKELETAL: Well developed, well nourished, good range of motion ENDOCRINE: No thyromegaly was palpated LYMPHATICS: No cervical chain or axillary nodes were noted HEMATOPOIETIC: No bruising NECK: Supple, no JVD, no thyromegaly was noted. LUNGS: Clear to auscultation in all lung cronin without rhonchi or wheezing. HEART: RRR, S1, S2 present. Peripheral pulses intact, no obvious murmurs were noted. ABDOMEN: He has decreased bowel sounds. EXTREMITIES: Without any cyanosis, clubbing, or edema. Pedal pulses intact, Homans sign is negative. NEUROLOGIC: He is more alert now. PSYCHIATRIC: Normal affect, normal mood. Stable. SKIN: He is slightly jaundiced. VASCULAR: Good capillary refill, neurovascular bundle appears to be intact. General: Alert, Oriented X3, Cooperative, No acute distress Heart: Regular rate, Normal S1 Lungs: Crackles Abdomen: Normal bowel sounds, Soft, No hepatosplenomegaly Extremities: No cyanosis Skin: No rashes Labs LABS SPEC #: [id number] SENG: 11/10/19 STATUS: COMP REQ #: [id number] RECD: 11/10/[address] [facility] [address]: KAREN DE LA ROSA MD SOURCE: BLOOD ENTR: 11/10/19-[address] [facility] [address]: ERICK CALDWELL MD [facility]: ORDERED: BCULT Procedure Result BLOOD CULTURE Final GRAM NEGATIVE RODS, IN 1 OF 2 BOTTLES, ONE SET DRAWN CALLED TO CARLO GORMAN RN ON 6S AT 14:40 ON 11/12/19 DW MT SENT TO [facility] FOR FURTHER WORKUP. Procedure Result BLOOD CULTURE LC Preliminary Preliminary [[facility]] on 11/13/19 at 1445 [facility] Unless otherwise specified, Testing Performed by: [address] [address] For Inquires, the Physician may contact the Microbiology department at [phone] Assessment and Plan Assessmemt and Plan Problems Medical Problems: (1) Colitis Status: Acute (2) Delirium Status: Acute (3) Sepsis Status: Acute Comment Review of Relevant I have reviewed the following items karey (where applicable) has been applied. Labs Laboratory Tests Test 11/11/19 12:10 11/12/19 03:30 Red Blood Count 3.19 x10^6/uL (4.30-5.70) 2.74 x10^6/uL (4.30-5.70) Absolute Reticulocyte Count 0.052 x10^6/uL (0.020-0.120) Percent Reticulocyte Count 1.6 % (0.5-2.3) Immature Reticulocyte Fraction 0.44 (0.20-0.60) Hepatitis A IgM Antibody Nonreactive (Nonreactive) Hepatitis B Surface Antigen Nonreactive (Nonreactive) Hepatitis B Core IgM Antibody Nonreactive (Nonreactive) Hepatitis C IgG Antibody Nonreactive (Nonreactive) White Blood Count 17.3 x10^3/uL (4.0-11.0) Hemoglobin 8.9 g/dL (13.0-17.5) Hematocrit 26.9 % (39.0-53.0) Mean Corpuscular Volume 98 fL (79-100) Mean Corpuscular Hemoglobin 32 pg (25-35) Mean Corpuscular Hemoglobin Concent 33 g/dL (31-37) Red Cell Distribution Width 16.0 % (11.5-14.5) Platelet Count 67 x10^3/uL (140-400) Neutrophils (%) (Auto) 92 % (31-73) Lymphocytes (%) (Auto) 4 % (24-48) Monocytes (%) (Auto) 4 % (0-9) Eosinophils (%) (Auto) 1 % (0-3) Basophils (%) (Auto) 0 % (0-3) Neutrophils # (Auto) 15.9 x10^3/uL (1.8-7.7) Lymphocytes # (Auto) 0.6 x10^3/uL (1.0-4.8) Monocytes # (Auto) 0.7 x10^3/uL (0.0-1.1) Eosinophils # (Auto) 0.1 x10^3/uL (0.0-0.7) Basophils # (Auto) 0.0 x10^3/uL (0.0-0.2) Segmented Neutrophils % 86 % (35-66) Band Neutrophils % 11 % (0-9) Lymphocytes % 3 % (24-48) Dohle Bodies Present Platelet Estimate Decreased (ADEQUATE) Anisocytosis Present Sodium Level 136 mmol/L (136-145) Potassium Level 4.0 mmol/L (3.5-5.1) Chloride Level 102 mmol/L (98-107) Carbon Dioxide Level 25 mmol/L (21-32) Anion Gap 9 (6-14) Blood Urea Nitrogen 48 mg/dL (8-26) Creatinine 4.9 mg/dL (0.7-1.3) Estimated GFR (Cockcroft-Gault) 11.6 Glucose Level 66 mg/dL (70-99) Calcium Level 6.8 mg/dL (8.5-10.1) Iron Level 6 ug/dL (65-175) Total Iron Binding Capacity 101 ug/dL (250-450) Iron Saturation 6 % (15-34) Total Bilirubin 0.4 mg/dL (0.2-1.0) Direct Bilirubin 0.2 mg/dL (0.0-0.2) Aspartate Amino Transf (AST/SGOT) 63 U/L (15-37) Alanine Aminotransferase (ALT/SGPT) 120 U/L (16-63) Alkaline Phosphatase 99 U/L (46-116) Total Protein 4.4 g/dL (6.4-8.2) Albumin 1.8 g/dL (3.4-5.0) Microbiology 11/11/19 AFB Specimen Processing Tissue - Final, Resulted 11/11/19 Acid Fast Bacilli Culture, Resulted Pending 11/11/19 Gram Stain - Final, Resulted 11/10/19 Blood Culture - Final, Complete Medications Current Medications Ceftriaxone Sodium (Rocephin) 1 gm 1X ONCE IVP Last administered on 11/10/19at 14:59; Start 11/10/19 at 14:45; Stop 11/10/19 at 14:46; Status DC Acetaminophen (Tylenol Supp) 650 mg 1X ONCE ID Last administered on 11/10/19at 15:01; Start 11/10/19 at 15:00; Stop 11/10/19 at 15:11; Status DC Sodium Chloride 1,000 ml @ 1,000 mls/hr 1X ONCE IV Last administered on 11/10/19at 17:30; Start 11/10/19 at 17:30; Stop 11/10/19 at 18:46; Status DC Piperacillin Sod/ Tazobactam Sod (Zosyn Per Pharmacy) 1 each PRN DAILY PRN MC SEE COMMENTS; Start 11/10/19 at 20:00 Piperacillin Sod/ Tazobactam Sod 2.25 gm/Sodium Chloride 50 ml @ 100 mls/hr Q8HRS IV Last administered on 11/13/19at 06:29; Start 11/10/19 at 22:00 Potassium Chloride (Klor-Con) 40 meq 1X ONCE PO Last administered on 11/10/19at 21:35; Start 11/10/19 at 21:30; Stop 11/10/19 at 21:31; Status DC Alprazolam (Xanax) 0.5 mg PRN Q6HRS PRN PO ANXIETY / AGITATION; Start 11/11/19 at 07:30 Apixaban (Eliquis) 2.5 mg BID PO Last administered on 11/13/19at 09:31; Start 11/11/19 at 09:00 Bupropion HCl (Wellbutrin Xl) 150 mg DAILY PO Last administered on 11/13/19 09:32; Start 11/11/19 at 09:00 Carvedilol (Coreg) 6.25 mg BIDWMEALS PO Last administered on 11/13/19 09:31; Start 11/11/19 at 08:00 Vitamin B Complex/ Vitamin C (Mandi-Debbie) 1 tab DAILY PO Last administered on 11/13/19at 09:32; Start 11/11/19 at 09:00 Acetaminophen/ Hydrocodone Bitart (Lortab 5/325) 1 tab QIDPRN PRN PO MODERATE PAIN Last administered on 11/11/19at 16:03; Start 11/11/19 at 07:30 Isosorbide Mononitrate (Imdur) 30 mg BID PO Last administered on 11/13/19 09:31; Start 11/11/19 at 09:00 Pantoprazole Sodium (Protonix) 40 mg BIDAC PO Last administered on 11/13/19at 08:01; Start 11/11/19 at 08:00 Simvastatin (Zocor) 30 mg QHS PO Last administered on 11/12/19at 20:59; Start 11/11/19 at 21:00 Sucralfate (Carafate) 1 gm QIDACHS PO Last administered on 11/13/19at 08:01; Start 11/11/19 at 08:00 Tamsulosin HCl (Flomax) 0.4 mg BID PO Last administered on 11/13/19at 09:32; Start 11/11/19 at 09:00 Non-Formulary Medication (Albuterol Sulfate (Ventolin Hfa Inhaler)) 2 puff QID INH ; Start 11/11/19 at 09:00; Status UNV Non-Formulary Medication (Budesonide/ Formoterol Fumarate (Symbicort 160-4.5 Mcg Inhaler)) 2 puff BID IH ; Start 11/11/19 at 09:00; Stop 11/11/19 at 16:08; Status DC Vitamin D (Vitamin D3) 2,000 unit DAILY PO Last administered on 11/13/19at 09:30; Start 11/11/19 at 09:00 Fish Oil (Fish Oil) 1,000 mg DAILY PO Last administered on 11/13/19at 09:32; Start 11/11/19 at 09:00 Info (Anti-Coagulation Monitoring By Pharmacy) 1 each PRN DAILY PRN MC SEE COMMENTS Last administered on 11/11/19at 15:46; Start 11/11/19 at 08:00 Albuterol Sulfate (Ventolin Neb Soln) 2.5 mg Q6HRS NEB ; Start 11/11/19 at 08:00; Stop 11/11/19 at 12:40; Status DC Budesonide (Pulmicort) 0.5 mg RTBID NEB ; Start 11/11/19 at 08:15; Stop 11/11/19 at 12:41; Status DC Albuterol Sulfate (Ventolin Hfa) 1 puff RTQID INH Last administered on 11/12/19at 20:59; Start 11/11/19 at 09:15; Stop 11/13/19 at 09:36; Status DC Non-Formulary Medication (Budesonide/ Formoterol Fumarate (Symbicort 160-4.5 Mcg Inhaler)) 2 puff BID INH ; Start 11/11/19 at 16:08; Status Cancel Non-Formulary Medication (Budesonide/ Formoterol Fumarate (Symbicort 160-4.5 Mcg Inhaler)) 2 puff BID INH Last administered on 11/12/19at 20:58; Start 11/12/19 at 09:00; Stop 11/13/19 at 09:36; Status DC Lidocaine HCl (Xylocaine-Mpf 1% 2ml Vial) 2 ml STK-MED ONCE .ROUTE ; Start 11/12/19 at 08:37; Stop 11/12/19 at 08:37; Status DC Lactobacillus Rhamnosus (Culturelle) 1 cap BID PO Last administered on 11/13/19at 09:32; Start 11/13/19 at 09:00 Albuterol Sulfate (Ventolin Neb Soln) 2.5 mg RTQID NEB ; Start 11/13/19 at 12:00 Budesonide (Pulmicort) 0.5 mg RTBID NEB ; Start 11/13/19 at 10:00 Active Scripts Active Reported Fish Oil 1,000 mg Softgel ([place]-3/Dha/Epa/Fish Oil) 1,000 Mg Capsule 1,000 Mg PO DAILY Sucralfate 1 Gm Tablet 1 Gm PO QID Vitamin D3 (Cholecalciferol (Vitamin D3)) 10 Mcg Tablet 2,000 Units PO DAILY Mandi-Debbie Tablet (Folic Acid/Vitamin B Comp W-C) 0.8 Mg Tablet 0.8 Mg PO DAILY Isosorbide Mononitrate Er (Isosorbide Mononitrate) 30 Mg Tab.er.24h 30 Mg PO BID Eliquis (Apixaban) 2.5 Mg Tablet 2.5 Mg PO BID [place] 5-325 Tablet (Acetaminophen/Hydrocodone Bitart) 1 Each Tablet 1 Tab PO Q6- 8HRS PRN Benadryl (Diphenhydramine Hcl) 25 Mg Capsule 50 Mg PO PRN Q6HRS PRN Xanax (Alprazolam) 0.5 Mg Tablet 0.5 Mg PO PRN Q6HRS PRN Flomax (Tamsulosin Hcl) 0.4 Mg Cap.er.24h 0.4 Mg PO BID Simvastatin 20 Mg Tablet 30 Mg PO HS Pantoprazole Sodium (Pantoprazole Sodium) 40 Mg Tablet.dr 40 Mg PO BID Carvedilol (Carvedilol) 6.25 Mg Tablet 6.25 Mg PO BIDWMEALS Bupropion Xl (Bupropion Hcl) 150 Mg Tab.er.24h 150 Mg PO QAM Symbicort 160-4.5 Mcg Inhaler (Budesonide/Formoterol Fumarate) 10.2 Gm Hfa.aer .ad 2 Puff IH BID Ventolin Hfa Inhaler (Albuterol Sulfate) 18 Gm Hfa.aer.ad 2 Puff INH QID Vitals/I & O Vital Sign - Last 24 Hours 11/12/19 11/12/19 11/12/19 11/12/19 15:22 16:45 19:50 20:59 Temp 98.2 98.2 Pulse 65 65 59 59 Resp 20 B/P (MAP) 137/65 (89) 137/65 153/70 (97) 153/70 Pulse Ox 98 O2 Delivery Room Air 11/12/19 11/12/19 11/13/19 11/13/19 21:00 23:25 03:33 07:00 Temp 97.9 98.0 98.4 97.9 98.0 98.4 Pulse 55 72 61 Resp 18 18 12 B/P (MAP) 163/82 (109) 164/72 (102) 153/54 (87) Pulse Ox 97 93 96 O2 Delivery Room Air Room Air Room Air Room Air 11/13/19 11/13/19 11/13/19 08:05 09:31 09:31 Pulse 61 61 B/P (MAP) 153/54 153/54 O2 Delivery Room Air Intake and Output 11/12/19 11/12/19 11/13/19 15:00 23:00 07:00 Intake Total 520 ml 180 ml 360 ml Output Total 200 ml 100 ml 100 ml Balance 320 ml 80 ml 260 ml Nutrition Consultation Dietary Evaluation: Recommendations by RD: Dietary education by RD, Increase Calorie Intake, Protein supplementation Comments: rec advance to renal diet when able Expected Outcomes/Goals: diet adv/ tolerance Malnutrition Findings: Food and Nutrition Intake (Mod: <75% est energy req 7days Weight Status: Appropriate Fluid Accumulation (Non-Severe: Mild depletion Justicifation of Admission Dx: Justifications for Admission: Justification of Admission Dx: Yes TANVIR CARRASCO MD Nov 13, 2019 10:57
[2019-11-13 11:00] VITALS: BP 162/64
[2019-11-13] MEDS: BUDESONIDE 0.5 MG/2 ML NEBU. NEB SCH ×2 (11:05→21:18)
[2019-11-13] MEDS: ALBUTEROL SULFATE 2.5 MG/3 ML NEBU. NEB SCH ×3 (11:05→21:18)
--- NOTE | 2019-11-13 12:28 | PDOC ---
Infectious Disease Note Subjective Subjective Feeling better over-all + BM Eating Denies fevers/chills/aches ROS ROS as mentioned above Vital Sign Vital Signs Vital Signs Date Time Temp Pulse Resp B/P (MAP) Pulse Ox O2 Delivery O2 Flow Rate FiO2 11/13/19 11:08 96 Room Air 11/13/19 09:31 61 153/54 11/13/19 07:00 98.4 12 98.4 Physical Exam PHYSICAL EXAM GENERAL: Propped up in bed, alert, relaxed appearance HEENT: Pupils equally round, reactive. Normal conjunctivae. Oropharynx pink and moist. No lesions seen. NECK: Supple. LUNGS: Clear to auscultation. No accessory muscle use. HEART: S1 and S2. ABDOMEN: Obese, soft, less tender, diffuse. No guarding. EXTREMITIES: No gross edema or cyanosis. LUE-AV fistula unremarkable. SKIN: Warm to touch. Denies rash. NEUROLOGIC: Alert and answers questions appropriately. PIV Labs Micro RUN DATE: 11/13/19 [facility] *LIVE* PAGE 1 RUN TIME: 1448 Specimen Inquiry PATIENT: DEVIN MANUEL ACCT: [id number] LOC: [address] [place] [address] U: [id number] AGE/SX: 79/M ROOM: [facility] RE11/10/[address]: KONSTANTIN VILLATORO III DO : 1940 BED: 1 DIS: STATUS: ADM IN TLOC: SPEC #: [id number] SENG: 11/10/19 STATUS: RES REQ #: [id number] RECD: 11/10/19-[address] [facility] [address]: KAREN DE LA ROSA MD SOURCE: BLOOD ENTR: 11/12/19-[address] [facility] [address]: ERICK CALDWELL MD [facility]: ORDERED: SHANNON CULT - LC Procedure Result BLOOD CULTURE LC Preliminary Preliminary [[facility]] on 11/13/19 at 1445 [facility] Unless otherwise specified, Testing Performed by: [address] [place] [address] For Inquires, the Physician may contact the Microbiology department at [phone] Objective Assessment Sepsis with lactic acidosis, POA. BC positive for GNR from 11/09. Colitis Pancytopenia, WBC now increased Fever, improved Diarrhea, C. diff neg 11/10 Transaminits, improved CKD on HD via AV fistula Severe PCM COPD Hypertension h/o prostate cancer h/o A-flutter Tobaccoism Plan Plan of Care Continue Zosyn f/u GNR ID/susceptibilities Monitor lab values and temp Maintain aspiration precautions Supportive care COVID-19 neg Attending Co-Sign Attending Co-Sign The patient was seen and examined at the bedside. The chart was reviewed. The case was discussed. Blood culture positive for Burkholderia Will change Zosyn to empiric Merrem Call micro lab to add susceptibilities for minocycline and tigecycline Repeat blood cultures in a.m. CLAUDIA ABDULLAHI APRN Nov 13, 2019 12:28 VERO LERNER MD Nov 13, 2019 15:24
[2019-11-13 15:00] VITALS: BP 146/83
[2019-11-13 19:00] VITALS: BP 159/61
[2019-11-13 19:28] LABS: BASO % 0 % (0-3); EOS # 0.2 x10^3/uL (0.0-0.7); EOS % 1 % (0-3); HEMATOCRIT 27.1 % (39.0-53.0); HEMOGLOBIN 9.2 g/dL (13.0-17.5); LYMPH # 0.9 x10^3/uL (1.0-4.8); LYMPH % 7 % (24-48); MEAN CORPUSCULAR HEMOGLOBIN 33 pg (25-35); MEAN CORPUSCULAR HGB CONC 34 g/dL (31-37); MEAN CORPUSCULAR VOLUME 98 fL (79-100); MONO # 0.3 x10^3/uL (0.0-1.1); MONO % 2 % (0-9); NEUT # 11.1 x10^3/uL (1.8-7.7); NEUT % 89 % (31-73); PLATELET COUNT 68 x10^3/uL (140-400); RED BLOOD COUNT 2.77 x10^6/uL (4.30-5.70); RED CELL DISTRIBUTION WIDTH 15.7 % (11.5-14.5); WHITE BLOOD COUNT 12.5 x10^3/uL (4.0-11.0)
[2019-11-13 19:38] LABS: ALBUMIN 1.8 g/dL (3.4-5.0); CALCIUM 7.3 mg/dL (8.5-10.1); CREATININE 4.1 mg/dL (0.7-1.3); GFR 14.2; PHOSPHORUS 2.7 mg/dL (2.6-4.7); POTASSIUM 3.2 mmol/L (3.5-5.1)
[2019-11-13] MEDS: MINOCYCLINE 100 MG CAPSULE PO SCH (20:55)
[2019-11-13] MEDS: SIMVASTATIN 10 MG TABLET PO SCH (20:56)
[2019-11-13] MEDS: MEROPENEM 500 MG in IV NORMAL SALINE 50ML 50 ML IV SCH (20:56)
[2019-11-13] MEDS: ALPRAZolam 0.5 MG TABLET PO PRN (20:58)
[2019-11-13] MEDS ORDERED: POTASSIUM CHLORIDE 20 MEQ TABLET.ER. PO ONE (21:30)
[2019-11-13 23:00] VITALS: BP 169/53
[2019-11-14] VITALS (7 sets, daily range): BP systolic 173–205; BP diastolic 65–98
[2019-11-14] MEDS: ALBUTEROL SULFATE 2.5 MG/3 ML NEBU. NEB SCH ×4 (07:52→20:11)
[2019-11-14] MEDS: BUDESONIDE 0.5 MG/2 ML NEBU. NEB SCH ×2 (07:52→20:11)
[2019-11-14] MEDS: MINOCYCLINE 100 MG CAPSULE PO SCH ×2 (08:26→21:41)
[2019-11-14] MEDS: FOLIC/VIT B COMP W-C (RENAL) TABLET. PO SCH (08:26)
[2019-11-14] MEDS: PANTOPRAZOLE 40 MG TABLET.DR. PO SCH ×2 (08:26→16:38)
[2019-11-14] MEDS: TAMSULOSIN 0.4 MG CAP.ER.24H. PO SCH ×2 (08:26→21:42)
[2019-11-14] MEDS: POTASSIUM CHLORIDE 20 MEQ TABLET.ER. PO SCH (08:26)
[2019-11-14] MEDS: OMEGA-3 FATTY ACIDS/FISH OIL 1,000 MG CAPSULE. PO SCH (08:26)
[2019-11-14] MEDS: LACTOBACILLUS RHAMNOSUS GG 1 CAPSULE. PO SCH ×2 (08:26→21:41)
[2019-11-14] MEDS: APIXABAN 2.5 MG TABLET. PO SCH ×2 (08:26→21:41)
[2019-11-14] MEDS: buPROPion XL 150 MG TAB.ER.24H. PO SCH (08:26)
[2019-11-14] MEDS: CHOLECALCIFEROL (VITAMIN D3) 1,000 UNIT TABLET PO SCH (08:26)
[2019-11-14] MEDS: SUCRALFATE 1 GM TABLET. PO SCH ×4 (08:27→21:41)
[2019-11-14] MEDS: CARVEDILOL 6.25 MG TABLET. PO SCH ×2 (08:27→16:39)
[2019-11-14] MEDS: ISOSORBIDE MONONITRATE ER 30 MG TAB.ER.24H PO SCH ×2 (08:27→21:41)
[2019-11-14 08:36] LABS: CALCIUM 7.2 mg/dL (8.5-10.1); CREATININE 4.6 mg/dL (0.7-1.3); GFR 12.5; POTASSIUM 3.4 mmol/L (3.5-5.1)
[2019-11-14 08:43] LABS: BASO % 0 % (0-3); EOS # 0.2 x10^3/uL (0.0-0.7); EOS % 2 % (0-3); HEMATOCRIT 29.1 % (39.0-53.0); HEMOGLOBIN 9.7 g/dL (13.0-17.5); LYMPH # 0.8 x10^3/uL (1.0-4.8); LYMPH % 8 % (24-48); MEAN CORPUSCULAR HEMOGLOBIN 33 pg (25-35); MEAN CORPUSCULAR HGB CONC 33 g/dL (31-37); MEAN CORPUSCULAR VOLUME 99 fL (79-100); MONO # 0.3 x10^3/uL (0.0-1.1); MONO % 3 % (0-9); NEUT # 8.5 x10^3/uL (1.8-7.7); NEUT % 87 % (31-73); PLATELET COUNT 78 x10^3/uL (140-400); RED BLOOD COUNT 2.94 x10^6/uL (4.30-5.70); RED CELL DISTRIBUTION WIDTH 16.1 % (11.5-14.5); WHITE BLOOD COUNT 9.8 x10^3/uL (4.0-11.0)
--- NOTE | 2019-11-14 09:59 | PDOC ---
[employer] PROGRESS NOTE Date of Service DOS: DATE: 11/14/19 TIME: 09:55 Chief Complaint Chief Complaint ASSESSMENT AND PLAN: Nausea, vomiting, Mild diffuse wall thickening involving the descending and sigmoid colon, favored represent colitis, may be infectious or inflammatory. diarrhea, pancytopenia abdominal pain, shortness of breath, abnormal chest x-ray, colitis C diff negative Gram negative bacteremia Hx of PUD but no clear peptic symptoms small pleural effusion. sepsis acute metabolic encephalopathy , improving 11/12 Sepsis with lactic acidosis, POA. BC positive for GNR from 11/09. Colitis BLOOD CULTURE LC Preliminary Preliminary [[facility]] on 11/13/19 at 1445 [facility] Unless otherwise specified, Testing Performed by: [facility] [address] [place] [address] For Inquires, the Physician may contact the Microbiology department at [phone] admitted. consult GI and Pulmonary. IV fluids if Nephrology agrees. Consult Nephrology for dialysis management. Full code. P.r.n. Tylenol, p.r.n. Zofran, IV antibiotics, zosyn home meds, DVT prophylaxis. with neutropenic colitis, etiology to be determined. cultures and viral hepatitis serologies. Heme consult for possible BM biopsy. 38 min pt exam, chart review, > 50% of time spent with exam, chart review, pt care coordination History of Present Illness History of Present Illness Mr Leal 79 yo M w/ PMHx ESRD, HTN, smoker who presents with nausea, vom iting, and diarrhea, fever. He came in by EMS. It has been slowly worsening over the past couple of days, but an hour before dialysis each day is when it gets worse. He called dialysis and stated he did not feel well. He had multiple episodes of nausea. He had some confusion. Found with colitis and burkholderia bacteremia. On empiric carbapenem currently. Abdominal pain improved. Overall he has no complaints. Less confused. Vitals/I&O Vitals/I&O: Vital Signs Date Time Temp Pulse Resp B/P (MAP) Pulse Ox O2 Delivery O2 Flow Rate FiO2 11/14/19 08:27 57 186/68 11/14/19 07:52 91 Room Air 11/14/19 07:00 97.7 18 97.7 I & O 11/13/19 11/13/19 11/14/19 15:00 23:00 07:00 Intake Total 50 ml 100 ml Output Total 0 ml Balance 50 ml 100 ml 0 ml Physical Exam Physical Exam: GENERAL: Propped up in bed, alert, relaxed appearance HEENT: Pupils equally round, reactive. Normal conjunctivae. Oropharynx pink and moist. No lesions seen. NECK: Supple. LUNGS: Clear to auscultation. No accessory muscle use. HEART: S1 and S2. ABDOMEN: Obese, soft, less tender, diffuse. No guarding. EXTREMITIES: No gross edema or cyanosis. LUE-AV fistula unremarkable. SKIN: Warm to touch. Denies rash. NEUROLOGIC: Alert and answers questions appropriately. PIV General: Alert, Oriented X3, Cooperative, No acute distress Heart: Regular rate, Normal S1 Lungs: Crackles Abdomen: Normal bowel sounds, Soft, No hepatosplenomegaly Extremities: No cyanosis Skin: No rashes Labs Labs: Laboratory Tests Test 11/13/19 19:00 11/14/19 07:45 White Blood Count 12.5 x10^3/uL (4.0-11.0) 9.8 x10^3/uL (4.0-11.0) Red Blood Count 2.77 x10^6/uL (4.30-5.70) 2.94 x10^6/uL (4.30-5.70) Hemoglobin 9.2 g/dL (13.0-17.5) 9.7 g/dL (13.0-17.5) Hematocrit 27.1 % (39.0-53.0) 29.1 % (39.0-53.0) Mean Corpuscular Volume 98 fL (79-100) 99 fL (79-100) Mean Corpuscular Hemoglobin 33 pg (25-35) 33 pg (25-35) Mean Corpuscular Hemoglobin Concent 34 g/dL (31-37) 33 g/dL (31-37) Red Cell Distribution Width 15.7 % (11.5-14.5) 16.1 % (11.5-14.5) Platelet Count 68 x10^3/uL (140-400) 78 x10^3/uL (140-400) Neutrophils (%) (Auto) 89 % (31-73) 87 % (31-73) Lymphocytes (%) (Auto) 7 % (24-48) 8 % (24-48) Monocytes (%) (Auto) 2 % (0-9) 3 % (0-9) Eosinophils (%) (Auto) 1 % (0-3) 2 % (0-3) Basophils (%) (Auto) 0 % (0-3) 0 % (0-3) Neutrophils # (Auto) 11.1 x10^3/uL (1.8-7.7) 8.5 x10^3/uL (1.8-7.7) Lymphocytes # (Auto) 0.9 x10^3/uL (1.0-4.8) 0.8 x10^3/uL (1.0-4.8) Monocytes # (Auto) 0.3 x10^3/uL (0.0-1.1) 0.3 x10^3/uL (0.0-1.1) Eosinophils # (Auto) 0.2 x10^3/uL (0.0-0.7) 0.2 x10^3/uL (0.0-0.7) Basophils # (Auto) 0.0 x10^3/uL (0.0-0.2) 0.0 x10^3/uL (0.0-0.2) Sodium Level 137 mmol/L (136-145) 141 mmol/L (136-145) Potassium Level 3.2 mmol/L (3.5-5.1) 3.4 mmol/L (3.5-5.1) Chloride Level 101 mmol/L (98-107) 103 mmol/L (98-107) Carbon Dioxide Level 29 mmol/L (21-32) 28 mmol/L (21-32) Anion Gap 7 (6-14) 10 (6-14) Blood Urea Nitrogen 41 mg/dL (8-26) 47 mg/dL (8-26) Creatinine 4.1 mg/dL (0.7-1.3) 4.6 mg/dL (0.7-1.3) Estimated GFR (Cockcroft-Gault) 14.2 12.5 Glucose Level 106 mg/dL (70-99) 70 mg/dL (70-99) Calcium Level 7.3 mg/dL (8.5-10.1) 7.2 mg/dL (8.5-10.1) Phosphorus Level 2.7 mg/dL (2.6-4.7) Albumin 1.8 g/dL (3.4-5.0) Assessment and Plan Assessmemt and Plan Problems Medical Problems: (1) Colitis Status: Acute (2) Delirium Status: Acute (3) Sepsis Status: Acute Comment Review of Relevant I have reviewed the following items karey (where applicable) has been applied. Medications: Current Medications Medications (Trade) Dose Ordered Sig/Diane Route PRN Reason Start Time Stop Time Status Last Admin Dose Admin Albuterol Sulfate (Ventolin Neb Soln) 2.5 mg RTQID NEB 11/13/19 12:00 11/14/19 07:52 Budesonide (Pulmicort) 0.5 mg RTBID NEB 11/13/19 10:00 11/14/19 07:52 Meropenem 500 mg/ Sodium Chloride 50 ml @ 100 mls/hr QHS IV 11/13/19 21:00 11/13/19 20:56 Minocycline HCl (Minocin) 100 mg BID PO 11/13/19 21:00 11/14/19 08:26 Potassium Chloride (Klor-Con) 40 meq 1X ONCE PO 11/13/19 21:30 11/13/19 21:31 DC 11/13/19 21:30 Potassium Chloride (Klor-Con) 20 meq DAILYWBKFT PO 11/14/19 08:00 11/14/19 08:26 Justicifation of Admission Dx: Justifications for Admission: Justification of Admission Dx: Yes FRANCISCO ALEXANDER MD Nov 14, 2019 09:59
--- NOTE | 2019-11-14 10:13 | PDOC ---
PULMONARY PROGRESS NOTES DATE: 11/14/19 TIME: 10:11 Subjective feels good, on ra, denies sob, has occ cough Vitals Vital Signs Date Time Temp Pulse Resp B/P (MAP) Pulse Ox O2 Delivery O2 Flow Rate FiO2 11/14/19 08:27 57 186/68 11/14/19 07:52 91 Room Air 11/14/19 07:00 97.7 18 97.7 General: Alert Lungs: Crackles Cardiovascular: S1, S2 Abdomen: Soft Neuro Exam: Alert Extremities: No Edema Labs Laboratory Tests Test 11/13/19 19:00 11/14/19 07:45 White Blood Count 12.5 x10^3/uL (4.0-11.0) 9.8 x10^3/uL (4.0-11.0) Red Blood Count 2.77 x10^6/uL (4.30-5.70) 2.94 x10^6/uL (4.30-5.70) Hemoglobin 9.2 g/dL (13.0-17.5) 9.7 g/dL (13.0-17.5) Hematocrit 27.1 % (39.0-53.0) 29.1 % (39.0-53.0) Mean Corpuscular Volume 98 fL (79-100) 99 fL (79-100) Mean Corpuscular Hemoglobin 33 pg (25-35) 33 pg (25-35) Mean Corpuscular Hemoglobin Concent 34 g/dL (31-37) 33 g/dL (31-37) Red Cell Distribution Width 15.7 % (11.5-14.5) 16.1 % (11.5-14.5) Platelet Count 68 x10^3/uL (140-400) 78 x10^3/uL (140-400) Neutrophils (%) (Auto) 89 % (31-73) 87 % (31-73) Lymphocytes (%) (Auto) 7 % (24-48) 8 % (24-48) Monocytes (%) (Auto) 2 % (0-9) 3 % (0-9) Eosinophils (%) (Auto) 1 % (0-3) 2 % (0-3) Basophils (%) (Auto) 0 % (0-3) 0 % (0-3) Neutrophils # (Auto) 11.1 x10^3/uL (1.8-7.7) 8.5 x10^3/uL (1.8-7.7) Lymphocytes # (Auto) 0.9 x10^3/uL (1.0-4.8) 0.8 x10^3/uL (1.0-4.8) Monocytes # (Auto) 0.3 x10^3/uL (0.0-1.1) 0.3 x10^3/uL (0.0-1.1) Eosinophils # (Auto) 0.2 x10^3/uL (0.0-0.7) 0.2 x10^3/uL (0.0-0.7) Basophils # (Auto) 0.0 x10^3/uL (0.0-0.2) 0.0 x10^3/uL (0.0-0.2) Sodium Level 137 mmol/L (136-145) 141 mmol/L (136-145) Potassium Level 3.2 mmol/L (3.5-5.1) 3.4 mmol/L (3.5-5.1) Chloride Level 101 mmol/L (98-107) 103 mmol/L (98-107) Carbon Dioxide Level 29 mmol/L (21-32) 28 mmol/L (21-32) Anion Gap 7 (6-14) 10 (6-14) Blood Urea Nitrogen 41 mg/dL (8-26) 47 mg/dL (8-26) Creatinine 4.1 mg/dL (0.7-1.3) 4.6 mg/dL (0.7-1.3) Estimated GFR (Cockcroft-Gault) 14.2 12.5 Glucose Level 106 mg/dL (70-99) 70 mg/dL (70-99) Calcium Level 7.3 mg/dL (8.5-10.1) 7.2 mg/dL (8.5-10.1) Phosphorus Level 2.7 mg/dL (2.6-4.7) Albumin 1.8 g/dL (3.4-5.0) Laboratory Tests Test 11/13/19 19:00 11/14/19 07:45 White Blood Count 12.5 x10^3/uL (4.0-11.0) 9.8 x10^3/uL (4.0-11.0) Red Blood Count 2.77 x10^6/uL (4.30-5.70) 2.94 x10^6/uL (4.30-5.70) Hemoglobin 9.2 g/dL (13.0-17.5) 9.7 g/dL (13.0-17.5) Hematocrit 27.1 % (39.0-53.0) 29.1 % (39.0-53.0) Mean Corpuscular Volume 98 fL (79-100) 99 fL (79-100) Mean Corpuscular Hemoglobin 33 pg (25-35) 33 pg (25-35) Mean Corpuscular Hemoglobin Concent 34 g/dL (31-37) 33 g/dL (31-37) Red Cell Distribution Width 15.7 % (11.5-14.5) 16.1 % (11.5-14.5) Platelet Count 68 x10^3/uL (140-400) 78 x10^3/uL (140-400) Neutrophils (%) (Auto) 89 % (31-73) 87 % (31-73) Lymphocytes (%) (Auto) 7 % (24-48) 8 % (24-48) Monocytes (%) (Auto) 2 % (0-9) 3 % (0-9) Eosinophils (%) (Auto) 1 % (0-3) 2 % (0-3) Basophils (%) (Auto) 0 % (0-3) 0 % (0-3) Neutrophils # (Auto) 11.1 x10^3/uL (1.8-7.7) 8.5 x10^3/uL (1.8-7.7) Lymphocytes # (Auto) 0.9 x10^3/uL (1.0-4.8) 0.8 x10^3/uL (1.0-4.8) Monocytes # (Auto) 0.3 x10^3/uL (0.0-1.1) 0.3 x10^3/uL (0.0-1.1) Eosinophils # (Auto) 0.2 x10^3/uL (0.0-0.7) 0.2 x10^3/uL (0.0-0.7) Basophils # (Auto) 0.0 x10^3/uL (0.0-0.2) 0.0 x10^3/uL (0.0-0.2) Sodium Level 137 mmol/L (136-145) 141 mmol/L (136-145) Potassium Level 3.2 mmol/L (3.5-5.1) 3.4 mmol/L (3.5-5.1) Chloride Level 101 mmol/L (98-107) 103 mmol/L (98-107) Carbon Dioxide Level 29 mmol/L (21-32) 28 mmol/L (21-32) Anion Gap 7 (6-14) 10 (6-14) Blood Urea Nitrogen 41 mg/dL (8-26) 47 mg/dL (8-26) Creatinine 4.1 mg/dL (0.7-1.3) 4.6 mg/dL (0.7-1.3) Estimated GFR (Cockcroft-Gault) 14.2 12.5 Glucose Level 106 mg/dL (70-99) 70 mg/dL (70-99) Calcium Level 7.3 mg/dL (8.5-10.1) 7.2 mg/dL (8.5-10.1) Phosphorus Level 2.7 mg/dL (2.6-4.7) Albumin 1.8 g/dL (3.4-5.0) Medications Active Scripts Medications Dose Route/Sig Max Daily Dose Days Date Category Fish Oil 1,000 mg Softgel ([place]-3/Dha/Epa/Fish Oil) 1,000 Mg Capsule 1,000 Mg PO DAILY 11/10/19 Reported Sucralfate 1 Gm Tablet 1 Gm PO QID 11/10/19 Reported Vitamin D3 (Cholecalciferol (Vitamin D3)) 10 Mcg Tablet 2,000 Units PO DAILY 11/10/19 Reported Mandi-Debbie Tablet (Folic Acid/Vitamin B Comp W-C) 0.8 Mg Tablet 0.8 Mg PO DAILY 11/10/19 Reported Isosorbide Mononitrate Er (Isosorbide Mononitrate) 30 Mg Tab.er.24h 30 Mg PO BID 11/10/19 Reported Eliquis (Apixaban) 2.5 Mg Tablet 2.5 Mg PO BID 11/10/19 Reported [place] 5-325 Tablet (Acetaminophen/Hydrocodone Bitart) 1 Each Tablet 1 Tab PO Q6-8HRS PRN 06/07/19 Reported Benadryl (Diphenhydramine Hcl) 25 Mg Capsule 50 Mg PO PRN Q6HRS PRN 06/06/19 Reported Xanax (Alprazolam) 0.5 Mg Tablet 0.5 Mg PO PRN Q6HRS PRN 06/06/19 Reported Flomax (Tamsulosin Hcl) 0.4 Mg Cap.er.24h 0.4 Mg PO BID 03/11/19 Reported Simvastatin 20 Mg Tablet 30 Mg PO HS 03/11/19 Reported Pantoprazole Sodium (Pantoprazole Sodium) 40 Mg Tablet.dr 40 Mg PO BID 03/11/19 Reported Carvedilol (Carvedilol) 6.25 Mg Tablet 6.25 Mg PO BIDWMEALS 03/11/19 Reported Bupropion Xl (Bupropion Hcl) 150 Mg Tab.er.24h 150 Mg PO QAM 03/11/19 Reported Symbicort 160-4.5 Mcg Inhaler (Budesonide/Formoterol Fumarate) 10.2 Gm Hfa.aer.ad 2 Puff IH BID 03/11/19 Reported Ventolin Hfa Inhaler (Albuterol Sulfate) 18 Gm Hfa.aer.ad 2 Puff INH QID 03/11/19 Reported Impression . IMPRESSION: 1. Sepsis with lactic acidosis, POA. BC positive for GNR from 11/09. 2. Long history of tobacco use for 40+ years and he still smokes cigarettes. Likely underlying chronic obstructive pulmonary disease without exacerbation. 3. Abnormal CT abdomen and pelvis consistent with colitis. GI is following. 4. Severe protein-calorie malnutrition. 5. Abnormal LFTs, improving 6. esrd on hd 7. covid19 neg 11/09. BLOOD CULTURE Final GRAM NEGATIVE RODS, IN 1 OF 2 BOTTLES, ONE SET DRAWN CALLED TO CARLO GORMAN RN ON 6S AT 14:40 ON 11/12/19 [facility] Plan . RECOMMENDATIONS: 1. 02 titration to keep sat 92% 2. Follow all cultures. BC positive for GNR from 11/09. COVID-19 neg 3. BD 4. Follow LFTs. 5. Improve nutritional status. 6. Follow GI recommendations. 7. Continue with present inhalers. 8. Anticoagulation with Eliquis per PCP for AFib. 9. Antibiotics per Infectious Disease. 10. Discussed with RN. We will follow along with you. SUSANNA ARNETT MD Nov 14, 2019 10:13
--- NOTE | 2019-11-14 11:26 | PDOC ---
Infectious Disease Note Subjective Subjective Feeling better over-all + BM Eating Denies fevers/chills/aches Vital Sign Vital Signs Vital Signs Date Time Temp Pulse Resp B/P (MAP) Pulse Ox O2 Delivery O2 Flow Rate FiO2 11/14/19 08:27 57 186/68 11/14/19 08:00 Room Air 11/14/19 07:52 91 11/14/19 07:00 97.7 18 97.7 Physical Exam PHYSICAL EXAM GENERAL: Propped up in bed, alert, relaxed appearance HEENT: Pupils equally round, reactive. Normal conjunctivae. Oropharynx pink and moist. No lesions seen. NECK: Supple. LUNGS: Clear to auscultation. No accessory muscle use. HEART: S1 and S2. ABDOMEN: Obese, soft, less tender, diffuse. No guarding. EXTREMITIES: No gross edema or cyanosis. LUE-AV fistula unremarkable. SKIN: Warm to touch. Denies rash. NEUROLOGIC: Alert and answers questions appropriately. PIV Labs Lab Laboratory Tests Test 11/13/19 19:00 11/14/19 07:45 White Blood Count 12.5 x10^3/uL (4.0-11.0) 9.8 x10^3/uL (4.0-11.0) Red Blood Count 2.77 x10^6/uL (4.30-5.70) 2.94 x10^6/uL (4.30-5.70) Hemoglobin 9.2 g/dL (13.0-17.5) 9.7 g/dL (13.0-17.5) Hematocrit 27.1 % (39.0-53.0) 29.1 % (39.0-53.0) Mean Corpuscular Volume 98 fL (79-100) 99 fL (79-100) Mean Corpuscular Hemoglobin 33 pg (25-35) 33 pg (25-35) Mean Corpuscular Hemoglobin Concent 34 g/dL (31-37) 33 g/dL (31-37) Red Cell Distribution Width 15.7 % (11.5-14.5) 16.1 % (11.5-14.5) Platelet Count 68 x10^3/uL (140-400) 78 x10^3/uL (140-400) Neutrophils (%) (Auto) 89 % (31-73) 87 % (31-73) Lymphocytes (%) (Auto) 7 % (24-48) 8 % (24-48) Monocytes (%) (Auto) 2 % (0-9) 3 % (0-9) Eosinophils (%) (Auto) 1 % (0-3) 2 % (0-3) Basophils (%) (Auto) 0 % (0-3) 0 % (0-3) Neutrophils # (Auto) 11.1 x10^3/uL (1.8-7.7) 8.5 x10^3/uL (1.8-7.7) Lymphocytes # (Auto) 0.9 x10^3/uL (1.0-4.8) 0.8 x10^3/uL (1.0-4.8) Monocytes # (Auto) 0.3 x10^3/uL (0.0-1.1) 0.3 x10^3/uL (0.0-1.1) Eosinophils # (Auto) 0.2 x10^3/uL (0.0-0.7) 0.2 x10^3/uL (0.0-0.7) Basophils # (Auto) 0.0 x10^3/uL (0.0-0.2) 0.0 x10^3/uL (0.0-0.2) Sodium Level 137 mmol/L (136-145) 141 mmol/L (136-145) Potassium Level 3.2 mmol/L (3.5-5.1) 3.4 mmol/L (3.5-5.1) Chloride Level 101 mmol/L (98-107) 103 mmol/L (98-107) Carbon Dioxide Level 29 mmol/L (21-32) 28 mmol/L (21-32) Anion Gap 7 (6-14) 10 (6-14) Blood Urea Nitrogen 41 mg/dL (8-26) 47 mg/dL (8-26) Creatinine 4.1 mg/dL (0.7-1.3) 4.6 mg/dL (0.7-1.3) Estimated GFR (Cockcroft-Gault) 14.2 12.5 Glucose Level 106 mg/dL (70-99) 70 mg/dL (70-99) Calcium Level 7.3 mg/dL (8.5-10.1) 7.2 mg/dL (8.5-10.1) Phosphorus Level 2.7 mg/dL (2.6-4.7) Albumin 1.8 g/dL (3.4-5.0) Micro Microbiology 11/13/19 Blood Culture - Preliminary, Resulted NO GROWTH AFTER 1 DAY 11/11/19 AFB Specimen Processing Tissue - Final, Resulted 11/11/19 Acid Fast Bacilli Culture, Resulted Pending 11/11/19 Gram Stain - Final, Resulted Objective Assessment Sepsis with lactic acidosis, POA. BC positive for GNR from 11/09. 11/12 - neg so far Colitis Pancytopenia, WBC now increased - improved today Fever, improved Diarrhea, C. diff neg 11/10 Transaminits, improved CKD on HD via AV fistula Severe PCM COPD Hypertension h/o prostate cancer h/o A-flutter Tobaccoism Plan Plan of Care Continue Meropemen and minocylcine and d/c Zosyn 11/12 f/u GNR ID/susceptibilities Monitor lab values and temp Maintain aspiration precautions Supportive care COVID-19 neg YEN TEMPLETON MD Nov 14, 2019 11:26
--- NOTE | 2019-11-14 12:37 | PDOC ---
Date of Service: DATE: 11/14/19 TIME: 12:29 Subjective: Subjective: Feels much better. Tolerating diet. Might have had lower abdominal pain but this resolved. Stools are "firming up." Objective: Objective: Reviewed heme/onc note: suspect leukopenia and thrombocytopenia are acute and secondary to acute illness. Will check B12, iron studies, copper level, SPEP, free kappa lambda light chains. Check folate level as outpatient. Vital Signs: Vital Signs Date Time Temp Pulse Resp B/P (MAP) Pulse Ox O2 Delivery O2 Flow Rate FiO2 11/14/19 11:33 97 Room Air 11/14/19 11:00 97.7 69 18 187/69 (108) 97.7 Labs: Laboratory Tests Test 11/13/19 19:00 11/14/19 07:45 White Blood Count 12.5 x10^3/uL 9.8 x10^3/uL Red Blood Count 2.77 x10^6/uL 2.94 x10^6/uL Hemoglobin 9.2 g/dL 9.7 g/dL Hematocrit 27.1 % 29.1 % Mean Corpuscular Volume 98 fL 99 fL Mean Corpuscular Hemoglobin 33 pg 33 pg Mean Corpuscular Hemoglobin Concent 34 g/dL 33 g/dL Red Cell Distribution Width 15.7 % 16.1 % Platelet Count 68 x10^3/uL 78 x10^3/uL Neutrophils (%) (Auto) 89 % 87 % Lymphocytes (%) (Auto) 7 % 8 % Monocytes (%) (Auto) 2 % 3 % Eosinophils (%) (Auto) 1 % 2 % Basophils (%) (Auto) 0 % 0 % Neutrophils # (Auto) 11.1 x10^3/uL 8.5 x10^3/uL Lymphocytes # (Auto) 0.9 x10^3/uL 0.8 x10^3/uL Monocytes # (Auto) 0.3 x10^3/uL 0.3 x10^3/uL Eosinophils # (Auto) 0.2 x10^3/uL 0.2 x10^3/uL Basophils # (Auto) 0.0 x10^3/uL 0.0 x10^3/uL Sodium Level 137 mmol/L 141 mmol/L Potassium Level 3.2 mmol/L 3.4 mmol/L Chloride Level 101 mmol/L 103 mmol/L Carbon Dioxide Level 29 mmol/L 28 mmol/L Anion Gap 7 10 Blood Urea Nitrogen 41 mg/dL 47 mg/dL Creatinine 4.1 mg/dL 4.6 mg/dL Estimated GFR (Cockcroft-Gault) 14.2 12.5 Glucose Level 106 mg/dL 70 mg/dL Calcium Level 7.3 mg/dL 7.2 mg/dL Phosphorus Level 2.7 mg/dL Albumin 1.8 g/dL AFB SPECIMEN PROCESSING Final Concentration AFB CULTURE FINAL PENDING AFB CULTURE GRAM STAIN Final Negative BLOOD CULTURE Final GRAM NEGATIVE RODS, Imaging: Abd US 11/10 IMPRESSION: 1. Edematous gallbladder wall thickening. This is a nonspecific imaging feature. This could be inflammatory thickening from cholecystitis although reactive thickening from liver disease or hypoproteinemia are also possibilities. No biliary ductal dilation. 2. Mild right pleural effusion. 3. Increased right renal parenchymal echogenicity suggesting medical renaldisease. No hydronephrosis. Simple right renal cyst is present, [place] 1, no follow-up of this cyst necessary. PE: GEN: NAD LUNGS: CTAB HEART: RRR ABD: NABS, S/ND/NT NEURO/PSYCH: A & O 3 A/P: GNR bacteremia N/v, diarrhea - resolved ACD/JONATHAN (told me no doesn't want more 'scopes), thrombocytopenia, elevated LFTs (better - viral Hep negative - liver ok on US) Abnormal CT - ?left colitis - C Diff negative ?h/o Rios's/PUD - on Carafate and PPI HTN, h/o A flutter, ESRD, prostate cancer COVID negative -- Continue same per GI. Justicifation of Admission Dx: Justifications for Admission: Justification of Admission Dx: Yes AIMEE WATERS Nov 14, 2019 12:37
--- NOTE | 2019-11-14 16:09 | NUR ---
SW following. Reviewed chart and discussed with RN. Pt from home with . Pt on a renal diet. Pt COVID negative. Pt on 2l 02. Pt does not have home 02. Pt not ready for discharge today per pending cultures. Pt remains on IV Meropenem. Pt does dialysis at [facility], , (fax). Pt looking forward to discharge home. Pt will likely discharge tomorrow, 11/14/2019. SW to follow.
[2019-11-14 16:11] LABS: ALBUM 2.1 g/dL (2.9-4.4); ALPHA 1 0.3 g/dL (0.0-0.4); ALPHA 2 0.6 g/dL (0.4-1.0); BETA 0.4 g/dL (0.7-1.3); GAMMA 0.6 g/dL (0.4-1.8); SPEP AG RATIO 1.1 (0.7-1.7)
[2019-11-14] MEDS: SIMVASTATIN 10 MG TABLET PO SCH (21:41)
[2019-11-14] MEDS: ALPRAZolam 0.5 MG TABLET PO PRN (21:41)
[2019-11-14] MEDS: MEROPENEM 500 MG in IV NORMAL SALINE 50ML 50 ML IV SCH (21:42)
[2019-11-15 03:00] VITALS: BP 128/92
[2019-11-15 05:15] LABS: COPPER LEVEL 95 ug/dL (72-166)
[2019-11-15 07:00] VITALS: BP 175/92
[2019-11-15] MEDS: BUDESONIDE 0.5 MG/2 ML NEBU. NEB SCH ×2 (08:00→20:05)
[2019-11-15] MEDS: ALBUTEROL SULFATE 2.5 MG/3 ML NEBU. NEB SCH ×4 (08:01→20:05)
[2019-11-15] MEDS: FOLIC/VIT B COMP W-C (RENAL) TABLET. PO SCH (08:16)
[2019-11-15] MEDS: POTASSIUM CHLORIDE 20 MEQ TABLET.ER. PO SCH (08:17)
[2019-11-15] MEDS: TAMSULOSIN 0.4 MG CAP.ER.24H. PO SCH ×2 (08:17→21:31)
[2019-11-15] MEDS: buPROPion XL 150 MG TAB.ER.24H. PO SCH (08:17)
[2019-11-15] MEDS: MINOCYCLINE 100 MG CAPSULE PO SCH (08:17)
[2019-11-15] MEDS: CARVEDILOL 6.25 MG TABLET. PO SCH (08:17)
[2019-11-15] MEDS: PANTOPRAZOLE 40 MG TABLET.DR. PO SCH ×2 (08:17→17:43)
[2019-11-15] MEDS: OMEGA-3 FATTY ACIDS/FISH OIL 1,000 MG CAPSULE. PO SCH (08:17)
[2019-11-15] MEDS: ISOSORBIDE MONONITRATE ER 30 MG TAB.ER.24H PO SCH ×2 (08:18→21:32)
[2019-11-15] MEDS: LACTOBACILLUS RHAMNOSUS GG 1 CAPSULE. PO SCH ×2 (08:18→21:31)
[2019-11-15] MEDS: CHOLECALCIFEROL (VITAMIN D3) 1,000 UNIT TABLET PO SCH (08:18)
[2019-11-15] MEDS: SUCRALFATE 1 GM TABLET. PO SCH ×4 (08:18→21:33)
[2019-11-15] MEDS: APIXABAN 2.5 MG TABLET. PO SCH ×2 (08:20→21:31)
--- NOTE | 2019-11-15 08:25 | PDOC ---
[employer] PROGRESS NOTE Date of Service DOS: DATE: 11/15/19 TIME: 08:25 Chief Complaint Chief Complaint ASSESSMENT AND PLAN: Nausea, vomiting, Mild diffuse wall thickening involving the descending and sigmoid colon, favored represent colitis, may be infectious or inflammatory. diarrhea, pancytopenia abdominal pain, shortness of breath, abnormal chest x-ray, colitis C diff negative Gram negative bacteremia Hx of PUD but no clear peptic symptoms small pleural effusion. sepsis acute metabolic encephalopathy , improving 11/12 Sepsis with lactic acidosis, POA. BC positive for GNR from 11/09. Colitis BLOOD CULTURE LC Preliminary Preliminary [[facility]] on 11/13/19 at 1445 [facility] Unless otherwise specified, Testing Performed by: [facility] [address] [place] [address] For Inquires, the Physician may contact the Microbiology department at [phone] admitted. consult GI and Pulmonary. IV fluids if Nephrology agrees. Consult Nephrology for dialysis management. Full code. P.r.n. Tylenol, p.r.n. Zofran, IV antibiotics, zosyn home meds, DVT prophylaxis. with neutropenic colitis, etiology to be determined. cultures and viral hepatitis serologies. Heme consult for possible BM biopsy. 38 min pt exam, chart review, > 50% of time spent with exam, chart review, pt care coordination History of Present Illness History of Present Illness Mr Leal 79 yo M w/ PMHx ESRD, HTN, smoker who presents with nausea, vom iting, and diarrhea, fever. He came in by EMS. It has been slowly worsening over the past couple of days, but an hour before dialysis each day is when it gets worse. He called dialysis and stated he did not feel well. He had multiple episodes of nausea. He had some confusion. 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 On empiric carbapenem currently. Abdominal pain improved. Overall he has no complaints. Less confused. Abdominal pain improved. Still confused. No SOB or CP. Repeat blood cultures with NGTD. Vitals/I&O Vitals/I&O: Vital Signs Date Time Temp Pulse Resp B/P (MAP) Pulse Ox O2 Delivery O2 Flow Rate FiO2 11/15/19 08:18 120 175/92 11/15/19 07:57 97 Room Air 11/15/19 03:00 97.6 29 97.6 11/14/19 15:19 2.0 I & O 11/14/19 11/14/19 11/15/19 15:00 23:00 07:00 Intake Total 300 ml Output Total 0 ml Balance 300 ml 0 ml Physical Exam Physical Exam: GENERAL: Propped up in bed, alert, relaxed appearance HEENT: Pupils equally round, reactive. Normal conjunctivae. Oropharynx pink and moist. No lesions seen. NECK: Supple. LUNGS: Clear to auscultation. No accessory muscle use. HEART: S1 and S2. ABDOMEN: Obese, soft, less tender, diffuse. No guarding. EXTREMITIES: No gross edema or cyanosis. LUE-AV fistula unremarkable. SKIN: Warm to touch. Denies rash. NEUROLOGIC: Alert and answers questions appropriately. PIV General: Alert, Cooperative, No acute distress Heart: Regular rate, Normal S1 Lungs: Crackles Abdomen: Normal bowel sounds, Soft, No hepatosplenomegaly Extremities: No cyanosis Skin: No rashes Assessment and Plan Assessmemt and Plan Problems Medical Problems: (1) Colitis Status: Acute (2) Delirium Status: Acute (3) Sepsis Status: Acute Comment Review of Relevant I have reviewed the following items karey (where applicable) has been applied. Justicifation of Admission Dx: Justifications for Admission: Justification of Admission Dx: Yes FRANCISCO ALEXANDER MD Nov 15, 2019 08:25
[2019-11-15] MEDS ORDERED: IV NORMAL SALINE 1000ML BAG 1,000 ML IV PRN ×2 (08:27)
[2019-11-15] MEDS ORDERED: ACETAMINOPHEN 500 MG TABLET PO PRN (08:30)
[2019-11-15] MEDS ORDERED: DIALYSIS PATIENT. MC PRN (08:30)
[2019-11-15] MEDS ORDERED: ALBUMIN HUMAN 25% 200 ML IV PRN (08:30)
[2019-11-15] MEDS ORDERED: diphenhydrAMINE 50 MG/ML VIAL IV PRN ×2 (08:30)
--- NOTE | 2019-11-15 09:20 | PDOC ---
Infectious Disease Note Subjective Subjective Didn't sleep well but ok Denies fevers/chills/aches ROS ROS o/w neg Vital Sign Vital Signs Vital Signs Date Time Temp Pulse Resp B/P (MAP) Pulse Ox O2 Delivery O2 Flow Rate FiO2 11/15/19 08:18 120 175/92 11/15/19 07:57 97 Room Air 11/15/19 03:00 97.6 29 97.6 11/14/19 15:19 2.0 Physical Exam PHYSICAL EXAM GENERAL: Propped up in bed, alert, relaxed appearance HEENT: Pupils equally round, reactive. Normal conjunctivae. Oropharynx pink and moist. No lesions seen. NECK: Supple. LUNGS: Clear to auscultation. No accessory muscle use. HEART: S1 and S2. ABDOMEN: Obese, soft, less tender, diffuse. No guarding. EXTREMITIES: No gross edema or cyanosis. LUE-AV fistula unremarkable. SKIN: Warm to touch. Denies rash. NEUROLOGIC: Alert and answers questions appropriately. PIV Labs Micro BLOOD CULTURE LC Preliminary Preliminary [[facility]] on 11/13/19 at 1445 ADDITIONAL REQUESTED ANTIBIOTICS TO FOLLOW [facility] ANTIMICROBIAL SUSCEPTIBILITY Preliminary Comment NEG RAFAT 56 [facility] ANTIBIOTIC RESULT INTERPRETATION CEFTAZIDIME 4 S LEVOFLOXACIN 1 S MEROPENEM <=1 S TRIMETHOPRIM/SULFAMETHOXAZOLE <=0.5/9.5 S Unless otherwise specified, Testing Performed by: [address] [address] For Inquires, the Physician may contact the Microbiology department at [phone] Microbiology 11/13/19 Blood Culture - Preliminary, Resulted NO GROWTH AFTER 1 DAY 11/11/19 AFB Specimen Processing Tissue - Final, Resulted 11/11/19 Acid Fast Bacilli Culture, Resulted Pending 11/11/19 Gram Stain - Final, Resulted Objective Assessment Sepsis with lactic acidosis, POA. 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 11/12 - neg so far Colitis Pancytopenia, WBC now increased - improved today Fever, improved Diarrhea, C. diff neg 11/10 Transaminits, improved CKD on HD via AV fistula Severe PCM COPD Hypertension h/o prostate cancer h/o A-flutter Tobaccoism Plan Plan of Care Continue Meropenem and d/c minocylcine - no sensitivity and improving with neg cults prior to starting. d/c Zosyn 11/12 Recommend central line and treatment with daily Meropenem thru 11/22 IR consulted. Rx written CBC/CMP 11/20 and fax t [phone] F/u ID office 11/22 at 3:45 Can d/c home if all arranged COVID-19 neg D/w Dr. Whatley/Dr. Wilburn and [employer] Operator YEN TEMPLETON MD Nov 15, 2019 09:20
--- NOTE | 2019-11-15 11:19 | PDOC ---
Date of Service: DATE: 11/15/19 TIME: 11:16 Subjective: Subjective: Feels fine, no GI complaints. Objective: Objective: D/w nurse - no GI concerns. To have IJ placed for outpt atbx, possible DC tomorrow. Vital Signs: Vital Signs Date Time Temp Pulse Resp B/P (MAP) Pulse Ox O2 Delivery O2 Flow Rate FiO2 11/15/19 08:18 120 175/92 11/15/19 07:57 97 Room Air 11/15/19 07:00 97.5 16 97.5 11/14/19 15:19 2.0 Labs: BLOOD CULTURE LC Preliminary Preliminary [[facility]] on 11/13/19 at 1445 ADDITIONAL REQUESTED ANTIBIOTICS TO FOLLOW [facility] PE: GEN: NAD LUNGS: CTAB HEART: RRR ABD: S/ND/NT NEURO/PSYCH: A & O 3, was resting A/P: Bacteremia N/v, diarrhea - resolved, C Diff negative, ?colitis on CT ACD/JONATHAN, thrombocytopenia (hematology following), elevated LFTs (improved) ?h/o Rios's/PUD - on Carafate and PPI HTN, A flutter, ESRD, prostate cancer -- Improved GI-dangelo, continue same. Justicifation of Admission Dx: Justifications for Admission: Justification of Admission Dx: Yes AIMEE WATERS Nov 15, 2019 11:19
[2019-11-15 11:32] VITALS: BP 158/99
--- NOTE | 2019-11-15 11:36 | PDOC ---
DATE OF SERVICE DATE: 11/15/19 TIME: 11:36 SUBJECTIVE ROS stable OBJECTIVE Vital Signs Vital Signs Date Time Temp Pulse Resp B/P (MAP) Pulse Ox O2 Delivery O2 Flow Rate FiO2 11/15/19 11:32 97.6 77 16 158/99 (118) 97 Room Air 97.6 11/14/19 15:19 2.0 I & 0 Intake and Output 11/15/19 07:00 Intake Total 300 ml Output Total 0 ml Balance 300 ml Intake Oral 300 ml Output Urine Total 0 ml # Voids 3 # Bowel Movements 2 PHYSICAL EXAM Physical Exam GENERAL: NAD HEENT: Pupils equally round, reactive. Normal conjunctivae. Oropharynx pink and moist. No lesions seen. NECK: Supple. LUNGS: Clear to auscultation. No accessory muscle use. HEART: S1 and S2. ABDOMEN: Obese, soft, less tender, diffuse. No guarding. EXTREMITIES: No gross edema or cyanosis. LUE-AV fistula unremarkable. SKIN: Warm to touch. Denies rash. NEUROLOGIC: Alert and answers questions appropriately. DIAGNOSIS/ASSESSMENT Assessment & Plan ESRD on HD TTS Dialysis today as ordered, Buzz Viveros Sepsis with lactic acidosis, POA. 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 ID recommends central line and treatment with daily Meropenem thru 11/22 Colitis Diarrhea, C. diff neg 11/10 Transaminits, improved COPD Hypertension h/o prostate cancer h/o A-flutter Tobaccoism COMMENT/RELEVANT DATA Meds Current Medications Medications (Trade) Dose Ordered Sig/Diane Start Time Stop Time Status Last Admin Dose Admin Acetaminophen (Tylenol Supp) 650 mg 1X ONCE 11/10/19 15:00 11/10/19 15:11 DC 11/10/19 15:01 650 MG Acetaminophen (Tylenol) 500 mg 1X PRN PRN 11/15/19 08:30 11/16/19 08:29 Acetaminophen/ Hydrocodone Bitart (Lortab 5/325) 1 tab QIDPRN PRN 11/11/19 07:30 11/11/19 16:03 1 TAB Albumin Human 200 ml @ 200 mls/hr 1X PRN PRN 11/15/19 08:30 11/15/19 14:29 Albuterol Sulfate (Ventolin Hfa) 1 puff RTQID 11/11/19 09:15 11/13/19 09:36 DC 11/12/19 20:59 1 PUFF Albuterol Sulfate (Ventolin Neb Soln) 2.5 mg RTQID 11/13/19 12:00 11/15/19 08:01 2.5 MG Alprazolam (Xanax) 0.5 mg PRN Q6HRS PRN 11/11/19 07:30 11/14/19 21:41 0.5 MG Apixaban (Eliquis) 2.5 mg BID 11/11/19 09:00 11/15/19 08:20 2.5 MG Budesonide (Pulmicort) 0.5 mg RTBID 11/13/19 10:00 11/15/19 08:00 0.5 MG Bupropion HCl (Wellbutrin Xl) 150 mg DAILY 11/11/19 09:00 11/15/19 08:17 150 MG Carvedilol (Coreg) 6.25 mg BIDWMEALS 11/11/19 08:00 11/15/19 08:17 6.25 MG Ceftriaxone Sodium (Rocephin) 1 gm 1X ONCE 11/10/19 14:45 11/10/19 14:46 DC 11/10/19 14:59 1 GM Diphenhydramine HCl (Benadryl) 25 mg 1X PRN PRN 11/15/19 08:30 11/16/19 08:29 Fish Oil (Fish Oil) 1,000 mg DAILY 11/11/19 09:00 11/15/19 08:17 1,000 MG Fluticasone/ Vilanterol (Breo Ellipta 200-25 Mcg) 14 puff STK-MED ONCE 11/12/19 09:00 11/14/19 10:00 DC Info (Anti-Coagulation Monitoring By Pharmacy) 1 each PRN DAILY PRN 11/11/19 08:00 11/11/19 15:46 1 EACH Info (PHARMACY MONITORING -- do not chart) 1 each PRN DAILY PRN 11/15/19 08:30 Isosorbide Mononitrate (Imdur) 30 mg BID 11/11/19 09:00 11/15/19 08:18 30 MG Lactobacillus Rhamnosus (Culturelle) 1 cap BID 11/13/19 09:00 11/15/19 08:18 1 CAP Lidocaine HCl (Xylocaine-Mpf 1% 2ml Vial) 2 ml STK-MED ONCE 11/12/19 09:00 11/14/19 09:16 DC Meropenem 500 mg/ Sodium Chloride 50 ml @ 100 mls/hr QHS 11/13/19 21:00 11/14/19 21:42 100 MLS/HR Minocycline HCl (Minocin) 100 mg BID 11/13/19 21:00 11/15/19 10:12 DC 11/15/19 08:17 100 MG Non-Formulary Medication (Albuterol Sulfate (Ventolin Hfa Inhaler)) 2 puff QID 11/11/19 09:00 UNV Non-Formulary Medication (Budesonide/ Formoterol Fumarate (Symbicort 160-4.5 Mcg Inhaler)) 2 puff BID 11/12/19 09:00 11/13/19 09:36 DC 11/12/19 20:58 2 PUFF Pantoprazole Sodium (Protonix) 40 mg BIDAC 11/11/19 08:00 11/15/19 08:17 40 MG Piperacillin Sod/ Tazobactam Sod (Zosyn Per Pharmacy) 1 each PRN DAILY PRN 11/10/19 20:00 11/13/19 15:35 DC Piperacillin Sod/ Tazobactam Sod 2.25 gm/Sodium Chloride 50 ml @ 100 mls/hr Q8HRS 11/10/19 22:00 11/13/19 15:21 DC 11/13/19 14:39 100 MLS/HR Potassium Chloride (Klor-Con) 20 meq DAILYWBKFT 11/14/19 08:00 11/15/19 08:17 20 MEQ Simvastatin (Zocor) 30 mg QHS 11/11/19 21:00 11/14/19 21:41 30 MG Sodium Chloride 1,000 ml @ 400 mls/hr Q2H30M PRN 11/15/19 08:27 11/15/19 20:26 Sucralfate (Carafate) 1 gm QIDACHS 11/11/19 08:00 11/15/19 08:18 1 GM Tamsulosin HCl (Flomax) 0.4 mg BID 11/11/19 09:00 11/15/19 08:17 0.4 MG Vitamin B Complex/ Vitamin C (Mandi-Debbie) 1 tab DAILY 11/11/19 09:00 11/15/19 08:16 1 TAB Vitamin D (Vitamin D3) 2,000 unit DAILY 11/11/19 09:00 11/15/19 08:18 2,000 UNIT Results All relevant outside records, renal labs, imaging studies, telemetry/EKG's were reviewed. Justicifation of Admission Dx: Justifications for Admission: Justification of Admission Dx: Yes JEWEL CARMONA MD Nov 15, 2019 11:36
[2019-11-15 12:29] LABS: ALBUMIN 1.9 g/dL (3.4-5.0); DIRECT BILIRUBIN 0.2 mg/dL (0.0-0.2); TOTAL BILIRUBIN 0.4 mg/dL (0.2-1.0); TOTAL PROTEIN 5.6 g/dL (6.4-8.2)
--- NOTE | 2019-11-15 12:51 | PDOC ---
PULMONARY PROGRESS NOTES DATE: 11/15/19 TIME: 12:50 Subjective feels good, on ra, denies sob, has occ cough Vitals Vital Signs Date Time Temp Pulse Resp B/P (MAP) Pulse Ox O2 Delivery O2 Flow Rate FiO2 11/15/19 12:01 97 Room Air 11/15/19 11:32 97.6 77 16 158/99 (118) 97.6 11/14/19 15:19 2.0 General: Alert Lungs: Crackles Cardiovascular: S1, S2 Abdomen: Soft Neuro Exam: Alert Extremities: No Edema Labs Laboratory Tests Test 11/13/19 19:00 11/14/19 07:45 11/15/19 11:41 White Blood Count 12.5 x10^3/uL (4.0-11.0) 9.8 x10^3/uL (4.0-11.0) Red Blood Count 2.77 x10^6/uL (4.30-5.70) 2.94 x10^6/uL (4.30-5.70) Hemoglobin 9.2 g/dL (13.0-17.5) 9.7 g/dL (13.0-17.5) Hematocrit 27.1 % (39.0-53.0) 29.1 % (39.0-53.0) Mean Corpuscular Volume 98 fL (79-100) 99 fL (79-100) Mean Corpuscular Hemoglobin 33 pg (25-35) 33 pg (25-35) Mean Corpuscular Hemoglobin Concent 34 g/dL (31-37) 33 g/dL (31-37) Red Cell Distribution Width 15.7 % (11.5-14.5) 16.1 % (11.5-14.5) Platelet Count 68 x10^3/uL (140-400) 78 x10^3/uL (140-400) Neutrophils (%) (Auto) 89 % (31-73) 87 % (31-73) Lymphocytes (%) (Auto) 7 % (24-48) 8 % (24-48) Monocytes (%) (Auto) 2 % (0-9) 3 % (0-9) Eosinophils (%) (Auto) 1 % (0-3) 2 % (0-3) Basophils (%) (Auto) 0 % (0-3) 0 % (0-3) Neutrophils # (Auto) 11.1 x10^3/uL (1.8-7.7) 8.5 x10^3/uL (1.8-7.7) Lymphocytes # (Auto) 0.9 x10^3/uL (1.0-4.8) 0.8 x10^3/uL (1.0-4.8) Monocytes # (Auto) 0.3 x10^3/uL (0.0-1.1) 0.3 x10^3/uL (0.0-1.1) Eosinophils # (Auto) 0.2 x10^3/uL (0.0-0.7) 0.2 x10^3/uL (0.0-0.7) Basophils # (Auto) 0.0 x10^3/uL (0.0-0.2) 0.0 x10^3/uL (0.0-0.2) Sodium Level 137 mmol/L (136-145) 141 mmol/L (136-145) Potassium Level 3.2 mmol/L (3.5-5.1) 3.4 mmol/L (3.5-5.1) Chloride Level 101 mmol/L (98-107) 103 mmol/L (98-107) Carbon Dioxide Level 29 mmol/L (21-32) 28 mmol/L (21-32) Anion Gap 7 (6-14) 10 (6-14) Blood Urea Nitrogen 41 mg/dL (8-26) 47 mg/dL (8-26) Creatinine 4.1 mg/dL (0.7-1.3) 4.6 mg/dL (0.7-1.3) Estimated GFR (Cockcroft-Gault) 14.2 12.5 Glucose Level 106 mg/dL (70-99) 70 mg/dL (70-99) Calcium Level 7.3 mg/dL (8.5-10.1) 7.2 mg/dL (8.5-10.1) Phosphorus Level 2.7 mg/dL (2.6-4.7) Albumin 1.8 g/dL (3.4-5.0) 1.9 g/dL (3.4-5.0) Total Bilirubin 0.4 mg/dL (0.2-1.0) Direct Bilirubin 0.2 mg/dL (0.0-0.2) Aspartate Amino Transf (AST/SGOT) 24 U/L (15-37) Alanine Aminotransferase (ALT/SGPT) 44 U/L (16-63) Alkaline Phosphatase 125 U/L (46-116) Total Protein 5.6 g/dL (6.4-8.2) Laboratory Tests Test 11/15/19 11:41 Total Bilirubin 0.4 mg/dL (0.2-1.0) Direct Bilirubin 0.2 mg/dL (0.0-0.2) Aspartate Amino Transf (AST/SGOT) 24 U/L (15-37) Alanine Aminotransferase (ALT/SGPT) 44 U/L (16-63) Alkaline Phosphatase 125 U/L (46-116) Total Protein 5.6 g/dL (6.4-8.2) Albumin 1.9 g/dL (3.4-5.0) Medications Active Scripts Medications Dose Route/Sig Max Daily Dose Days Date Category Fish Oil 1,000 mg Softgel ([place]-3/Dha/Epa/Fish Oil) 1,000 Mg Capsule 1,000 Mg PO DAILY 11/10/19 Reported Sucralfate 1 Gm Tablet 1 Gm PO QID 11/10/19 Reported Vitamin D3 (Cholecalciferol (Vitamin D3)) 10 Mcg Tablet 2,000 Units PO DAILY 11/10/19 Reported Mandi-Debbie Tablet (Folic Acid/Vitamin B Comp W-C) 0.8 Mg Tablet 0.8 Mg PO DAILY 11/10/19 Reported Isosorbide Mononitrate Er (Isosorbide Mononitrate) 30 Mg Tab.er.24h 30 Mg PO BID 11/10/19 Reported Eliquis (Apixaban) 2.5 Mg Tablet 2.5 Mg PO BID 11/10/19 Reported Sterling 5-325 Tablet (Acetaminophen/Hydrocodone Bitart) 1 Each Tablet 1 Tab PO Q6-8HRS PRN 06/07/19 Reported Benadryl (Diphenhydramine Hcl) 25 Mg Capsule 50 Mg PO PRN Q6HRS PRN 06/06/19 Reported Xanax (Alprazolam) 0.5 Mg Tablet 0.5 Mg PO PRN Q6HRS PRN 06/06/19 Reported Flomax (Tamsulosin Hcl) 0.4 Mg Cap.er.24h 0.4 Mg PO BID 03/11/19 Reported Simvastatin 20 Mg Tablet 30 Mg PO HS 03/11/19 Reported Pantoprazole Sodium (Pantoprazole Sodium) 40 Mg Tablet.dr 40 Mg PO BID 03/11/19 Reported Carvedilol (Carvedilol) 6.25 Mg Tablet 6.25 Mg PO BIDWMEALS 03/11/19 Reported Bupropion Xl (Bupropion Hcl) 150 Mg Tab.er.24h 150 Mg PO QAM 03/11/19 Reported Symbicort 160-4.5 Mcg Inhaler (Budesonide/Formoterol Fumarate) 10.2 Gm Hfa.aer.ad 2 Puff IH BID 03/11/19 Reported Ventolin Hfa Inhaler (Albuterol Sulfate) 18 Gm Hfa.aer.ad 2 Puff INH QID 03/11/19 Reported Comments BLOOD CULTURE LC Preliminary Preliminary [[facility]] on 11/13/19 at 1445 ADDITIONAL REQUESTED ANTIBIOTICS TO FOLLOW [facility] ANTIMICROBIAL SUSCEPTIBILITY Preliminary Comment NEG RAFTA 56 [facility] ANTIBIOTIC RESULT INTERPRETATION CEFTAZIDIME 4 S LEVOFLOXACIN 1 S MEROPENEM <=1 S TRIMETHOPRIM/SULFAMETHOXAZOLE <=0.5/9.5 S Unless otherwise specified, Testing Performed by: [address] [address] For Inquires, the Physician may contact the Microbiology department at [phone] Impression . IMPRESSION: 1. Sepsis with lactic acidosis, POA. Bacteremia 2. Long history of tobacco use for 40+ years and he still smokes cigarettes. Likely underlying chronic obstructive pulmonary disease without exacerbation. 3. Abnormal CT abdomen and pelvis consistent with colitis. GI is following. 4. Severe protein-calorie malnutrition. 5. Abnormal LFTs, improving 6. esrd on hd 7. covid19 neg Plan . RECOMMENDATIONS: 1. 02 titration to keep sat 92% 2. Bacteremia /COVID-19 neg 3. BD 4. Follow LFTs. 5. Improve nutritional status. 6. Follow GI recommendations. 7. Continue with present inhalers. 8. Anticoagulation with Eliquis per PCP for AFib. 9. Antibiotics per Infectious Disease. 10. Discussed with RN. We will follow along with you. SUSANNA ARNETT MD Nov 15, 2019 12:51
[2019-11-15] MEDS ORDERED: METOPROLOL TARTRATE 5 MG/5 ML VIAL. IVP PRN (13:00)
--- NOTE | 2019-11-15 13:37 | PDOC2 ---
CARDIAC CONSULT DATE OF CONSULT Date of Consult DATE: 11/15/19 TIME: 1130 REASON FOR CONSULT Reason for Consult: Uncontrolled AFIB REFERRING PHYSICIAN Referring Physician: Akila SOURCE Source: Chart review, Patient HISTORY OF PRESENT ILLNESS HISTORY OF PRESENT ILLNESS This is a 79 yo male admitted for complains of altered mental status. He was noted at home with nausea and mainly diarrhea. He also had bouts of vomiting and has been noted so far with bacteremia seen by GI and ID. Denies any complains of chest or SOA and palpitations but at some point wbefore coming to the hospital h jess was sitting and may have passed out as he does not have recollection of his trying to talk to him. As an inpt he has been noted with fever as high as 104 but negative for covid. He has been taking his medications regularly but unclear if he stopped at some point given his GI symptoms. The consult is for AFIB RVR which is not new for him and is on eliquis at home. Upon admission he was in SR and now in AFIB and rates at 100-120s. PAST MEDICAL HISTORY Cardiovascular: AFIB, CHF, HTN, Hyperlipidemia, Other (carotid artery disease) Pulmonary: COPD CENTRAL NERVOUS SYSTEM: Other (No pertinent history) GI: GERD (barretts) Heme/Onc: Anemia NOS Hepatobiliary: No pertinent hx Psych: Anxiety Musculoskeletal: Osteoarthritis Renal/: Chronic renal failure, UTI, Prostate Ca. Endocrine: Hyperparathyroidism PAST SURGICAL HISTORY Past Surgical History: Hernia Repair FAMILY HISTORY Family History: Coronary Artery Disease SOCIAL HISTORY Smoke: <1 pack per day ALCOHOL: none Drugs: None Lives: with Family ALLERGIES ALLERGIES: Coded Allergies: regadenoson (Verified Allergy, Severe, Anaphylaxis, 06/07/19) Iodinated Contrast Media (Verified Allergy, Intermediate, 06/07/19) Nitrofuran Analogues (Verified Allergy, Intermediate, rash, 06/07/19) bumetanide (Verified Allergy, Intermediate, 11/11/19) CKD chlorothiazide (Verified Allergy, Intermediate, 11/11/19) CKD dutasteride (Verified Allergy, Intermediate, rash, 06/07/19) finasteride (Verified Allergy, Intermediate, hives, 06/07/19) furosemide (Verified Allergy, Intermediate, 11/11/19) CKD hydrochlorothiazide (Verified Allergy, Intermediate, 11/11/19) CKD spironolactone (Verified Allergy, Intermediate, 11/11/19) CKD NSAIDS (Non-Steroidal Anti-Inflamma (Verified Adverse Reaction, Intermediate, 06/07/19) CKD PHYSICAL EXAM General: Alert, Oriented X3, Cooperative, No acute distress HEENT: Atraumatic, Mucous membr. moist/pink Lungs: Other (diminished) Heart: Other (AFIB RVR) Abdomen: Soft, No tenderness Extremities: No cyanosis, Other (1-2+ bilateral pedal edema) Skin: No breakdown Neuro: Normal speech, Sensation intact Psych/Mental Status: Mental status NL, Mood NL MUSCULOSKELETAL: Osteoarthritic changes both hands VITALS/I&O VITALS/I&O: Vital Signs Date Time Temp Pulse Resp B/P (MAP) Pulse Ox O2 Delivery O2 Flow Rate FiO2 11/15/19 12:01 97 Room Air 11/15/19 11:32 97.6 77 16 158/99 (118) 97.6 11/14/19 15:19 2.0 I & O 11/14/19 11/14/19 11/15/19 14:59 22:59 06:59 Intake Total 300 ml Output Total 0 ml Balance 300 ml 0 ml LABS Lab: Laboratory Tests Test 11/15/19 11:41 Total Bilirubin 0.4 mg/dL (0.2-1.0) Direct Bilirubin 0.2 mg/dL (0.0-0.2) Aspartate Amino Transferase (AST) 24 U/L (15-37) Alanine Aminotransferase (ALT) 44 U/L (16-63) Alkaline Phosphatase 125 U/L (46-116) H Total Protein 5.6 g/dL (6.4-8.2) L Albumin 1.9 g/dL (3.4-5.0) L ECHOCARDIOGRAM ECHOCARDIOGRAM <Conclusion> The Left Ventricle is borderline dilated. The left ventricular systolic function is low normal. The ejection fraction is estimated at 50%. There is no significant aortic valvular stenosis. Doppler and Color Flow revealed no significant aortic regurgitation. Doppler and Color Flow revealed mild to moderate mitral regurgitation. Doppler and Color Flow revealed mild to moderate tricuspid regurgitation. The PA pressure was estimated at 44 mmHg. DATE: 03/13/19 1523 ASSESSMENT/PLAN ASSESSMENT/PLAN 1. AFIB RVR: paroxysmal by h Converted to AFIB as an inpt 2. Diarrhea/vomiting: colitis? GI following 3. HTN urgency: better 4. HLP 5. ESRD 6. COPD with continued tobaccoism 7. Thrombocytopenia: hemonc following PLT 78. 8. Sepsis/fever/.bacteremia: negative covid 9. Possible syncope: due to dehydration 10. Metabolic encephalopathy: better 11. Chronic diastolic CHF Recommendations 1. Recent MCOT with <1% AFIB burden. Refractory episode due to extracardiac issues. Will transition coreg to metoprolol tartrate at 50 mg bid and will continue eliquis currently at low dose for now given his low PLT for stroke prevention. 2. Secondary prevention measures. Will check TSH supportive care. TTE today AFSHAN BARRETT WICKER WORKER Nov 15, 2019 13:37
[2019-11-15] MEDS: ANTI-COAG MONITOR BY PHARMACY. MC PRN (14:35)
[2019-11-15 16:00] VITALS: BP 163/101
[2019-11-15 16:11] LABS: KAPPA FREE 114.7 mg/L (3.3-19.4); KAPPA LAMBDA RATIO 1.49 (0.26-1.65); LAMBDA FREE 76.9 mg/L (5.7-26.3)
--- NOTE | 2019-11-15 17:34 | NUR ---
SW following. Reviewed chart and discussed with RN. Pt from home with . Pt will discharge on IV Meropenem per Dr. Ray. Pt agreeable to in-home infusion from [facility] and С[facility]ТЛ[facility]НА from [facility]. Pt to have mid-line placed today and will likely discharge 11/15. SW completed Patient Choice of Vendor form. OSKAR phoned and faxed referrals to both Hilario at [facility] and Faye at [facility]. Spoke with [facility] r/t benefit check- $15.83 per day until pt pt's [id number] max of 5k. Pt does have a $300 deductible that will likely have been met with this hospitalization. Faye from [facility] to meet with pt prior to discharge. SW to follow.
[2019-11-15 18:09] VITALS: BP 142/105
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
[2019-11-15] MEDS: MEROPENEM 500 MG in IV NORMAL SALINE 50ML 50 ML IV SCH (21:31)
[2019-11-15] MEDS: SIMVASTATIN 10 MG TABLET PO SCH (21:31)
[2019-11-15] MEDS: METOPROLOL TART IMMED RELEASE 50 MG TABLET. PO SCH (21:32)
[2019-11-15] MEDS: ALPRAZolam 0.5 MG TABLET PO PRN (21:38)
[2019-11-15 23:00] VITALS: BP 173/71
--- NOTE | 2019-11-16 06:15 | NUR ---
Nursing Note Pt called RN into room, pt was attempting to start to shower, and accidentally removed his IV access when removing his gown. Site needed pressure for a while before it would stop bleeding. Pt had bled all over the floor, walker, bsc and bathroom floor. Floor and items cleaned with bleach wipes, pt showered self in shower.
[2019-11-16 07:00] VITALS: BP 151/67
[2019-11-16] MEDS: ALBUTEROL SULFATE 2.5 MG/3 ML NEBU. NEB SCH ×3 (07:38→16:11)
[2019-11-16] MEDS: BUDESONIDE 0.5 MG/2 ML NEBU. NEB SCH (07:39)
[2019-11-16] MEDS: PANTOPRAZOLE 40 MG TABLET.DR. PO SCH ×2 (08:26→17:02)
[2019-11-16] MEDS: METOPROLOL TART IMMED RELEASE 50 MG TABLET. PO SCH (08:27)
[2019-11-16] MEDS: APIXABAN 2.5 MG TABLET. PO SCH (08:27)
[2019-11-16] MEDS: SUCRALFATE 1 GM TABLET. PO SCH ×3 (08:27→17:02)
[2019-11-16] MEDS: TAMSULOSIN 0.4 MG CAP.ER.24H. PO SCH (08:27)
[2019-11-16] MEDS: CHOLECALCIFEROL (VITAMIN D3) 1,000 UNIT TABLET PO SCH (08:27)
[2019-11-16] MEDS: buPROPion XL 150 MG TAB.ER.24H. PO SCH (08:28)
[2019-11-16] MEDS: LACTOBACILLUS RHAMNOSUS GG 1 CAPSULE. PO SCH (08:28)
[2019-11-16] MEDS: ISOSORBIDE MONONITRATE ER 30 MG TAB.ER.24H PO SCH (08:28)
[2019-11-16] MEDS: POTASSIUM CHLORIDE 20 MEQ TABLET.ER. PO SCH (08:28)
[2019-11-16] MEDS: OMEGA-3 FATTY ACIDS/FISH OIL 1,000 MG CAPSULE. PO SCH (08:28)
[2019-11-16] MEDS: FOLIC/VIT B COMP W-C (RENAL) TABLET. PO SCH (08:28)
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
--- NOTE | 2019-11-16 09:29 | PDOC ---
PULMONARY PROGRESS NOTES DATE: 11/16/19 TIME: 09:27 Subjective Pt. is ready to D/C today sitting up in chair on R/A, no SOA, no CP, no cough Vitals Vital Signs Date Time Temp Pulse Resp B/P (MAP) Pulse Ox O2 Delivery O2 Flow Rate FiO2 11/16/19 08:28 75 151/67 11/16/19 07:39 98 Room Air 11/16/19 07:00 97.6 18 97.6 ROS: No Nausea, No Chest Pain, No Abdominal Pain, No Increase Cough General: Alert Lungs: Clear Cardiovascular: S1, S2 Abdomen: Soft Neuro Exam: Alert Extremities: No Edema Labs Laboratory Tests Test 11/15/19 11:41 Total Bilirubin 0.4 mg/dL (0.2-1.0) Direct Bilirubin 0.2 mg/dL (0.0-0.2) Aspartate Amino Transf (AST/SGOT) 24 U/L (15-37) Alanine Aminotransferase (ALT/SGPT) 44 U/L (16-63) Alkaline Phosphatase 125 U/L (46-116) Total Protein 5.6 g/dL (6.4-8.2) Albumin 1.9 g/dL (3.4-5.0) Thyroid Stimulating Hormone (TSH) 1.563 uIU/mL (0.358-3.74) Laboratory Tests Test 11/15/19 11:41 Total Bilirubin 0.4 mg/dL (0.2-1.0) Direct Bilirubin 0.2 mg/dL (0.0-0.2) Aspartate Amino Transf (AST/SGOT) 24 U/L (15-37) Alanine Aminotransferase (ALT/SGPT) 44 U/L (16-63) Alkaline Phosphatase 125 U/L (46-116) Total Protein 5.6 g/dL (6.4-8.2) Albumin 1.9 g/dL (3.4-5.0) Thyroid Stimulating Hormone (TSH) 1.563 uIU/mL (0.358-3.74) Medications Active Scripts Medications Dose Route/Sig Max Daily Dose Days Date Category Fish Oil 1,000 mg Softgel ([place]-3/Dha/Epa/Fish Oil) 1,000 Mg Capsule 1,000 Mg PO DAILY 11/10/19 Reported Sucralfate 1 Gm Tablet 1 Gm PO QID 11/10/19 Reported Vitamin D3 (Cholecalciferol (Vitamin D3)) 10 Mcg Tablet 2,000 Units PO DAILY 11/10/19 Reported Mandi-Debbie Tablet (Folic Acid/Vitamin B Comp W-C) 0.8 Mg Tablet 0.8 Mg PO DAILY 11/10/19 Reported Isosorbide Mononitrate Er (Isosorbide Mononitrate) 30 Mg Tab.er.24h 30 Mg PO BID 11/10/19 Reported Eliquis (Apixaban) 2.5 Mg Tablet 2.5 Mg PO BID 11/10/19 Reported Wilder 5-325 Tablet (Acetaminophen/Hydrocodone Bitart) 1 Each Tablet 1 Tab PO Q6-8HRS PRN 06/07/19 Reported Benadryl (Diphenhydramine Hcl) 25 Mg Capsule 50 Mg PO PRN Q6HRS PRN 06/06/19 Reported Xanax (Alprazolam) 0.5 Mg Tablet 0.5 Mg PO PRN Q6HRS PRN 06/06/19 Reported Flomax (Tamsulosin Hcl) 0.4 Mg Cap.er.24h 0.4 Mg PO BID 03/11/19 Reported Simvastatin 20 Mg Tablet 30 Mg PO HS 03/11/19 Reported Pantoprazole Sodium (Pantoprazole Sodium) 40 Mg Tablet.dr 40 Mg PO BID 03/11/19 Reported Carvedilol (Carvedilol) 6.25 Mg Tablet 6.25 Mg PO BIDWMEALS 03/11/19 Reported Bupropion Xl (Bupropion Hcl) 150 Mg Tab.er.24h 150 Mg PO QAM 03/11/19 Reported Symbicort 160-4.5 Mcg Inhaler (Budesonide/Formoterol Fumarate) 10.2 Gm Hfa.aer.ad 2 Puff IH BID 03/11/19 Reported Ventolin Hfa Inhaler (Albuterol Sulfate) 18 Gm Hfa.aer.ad 2 Puff INH QID 03/11/19 Reported Comments BLOOD CULTURE LC Preliminary Preliminary [BURKHOL[facility]IA CEPACIA GROUP] on 11/13/19 at 1445 ADDITIONAL REQUESTED ANTIBIOTICS TO FOLLOW BURKHOLDERIA (P.) CEPACIA [facility]OL[facility] ANTIMICROBIAL SUSCEPTIBILITY Preliminary Comment NEG RAFAT 56 BURKHOLDERIA (P.) CEPACIA ANTIBIOTIC RESULT INTERPRETATION CEFTAZIDIME 4 S LEVOFLOXACIN 1 S MEROPENEM <=1 S TRIMETHOPRIM/SULFAMETHOXAZOLE <=0.5/9.5 S Unless otherwise specified, Testing Performed by: [facility] [address] [place] [address] For Inquires, the Physician may contact the Microbiology department at [phone] Impression . IMPRESSION: 1. Sepsis with lactic acidosis, POA. Bacteremia-- improving 2. Long history of tobacco use for 40+ years and he still smokes cigarettes. Likely underlying chronic obstructive pulmonary disease without exacerbation. 3. Abnormal CT abdomen and pelvis consistent with colitis. GI is following. 4. Severe protein-calorie malnutrition. 5. Abnormal LFTs, improving 6. esrd on hd 7. covid19 neg Plan . RECOMMENDATIONS: 1. 02 titration to keep sat 92% 2. Bacteremia /COVID-19 neg-- repeat culture on 11/13/2019-- NGTD 3. NEBS 4. Follow LFTs. 5. Improve nutritional status. 6. Follow GI recommendations. 7. Continue with present inhalers. 8. Anticoagulation with Eliquis per PCP for AFib. 9. Antibiotics per Infectious Disease. 10. Follow renal recs cont. HD for ESRD D/W SUSANNA LANIER MD Nov 16, 2019 09:29
--- NOTE | 2019-11-16 09:40 | PDOC ---
Date of Service: DATE: 11/16/19 TIME: 09:38 Subjective: Subjective: Doing okay. Objective: Objective: D/w nurse - no GI concerns, hopefully to have central line today and DC soon. Vital Signs: Vital Signs Date Time Temp Pulse Resp B/P (MAP) Pulse Ox O2 Delivery O2 Flow Rate FiO2 11/16/19 08:28 75 151/67 11/16/19 07:39 98 Room Air 11/16/19 07:00 97.6 18 97.6 Labs: Laboratory Tests Test 11/15/19 11:41 Total Bilirubin 0.4 mg/dL Direct Bilirubin 0.2 mg/dL Aspartate Amino Transf (AST/SGOT) 24 U/L Alanine Aminotransferase (ALT/SGPT) 44 U/L Alkaline Phosphatase 125 U/L Total Protein 5.6 g/dL Albumin 1.9 g/dL Thyroid Stimulating Hormone (TSH) 1.563 uIU/mL BLOOD CULTURE Preliminary NO GROWTH AFTER 3 DAYS PE: GEN: NAD LUNGS: CTAB HEART: RRR ABD: S/ND/NT NEURO/PSYCH: A & O 3 - was asleep in chair A/P: Bacteremia N/v, diarrhea, elevated LFTs - resolved ACD/JONATHAN, thrombocytopenia Possible h/o Rios's/PUD - on Carafate and PPI -- Dc per primary. Justicifation of Admission Dx: Justifications for Admission: Justification of Admission Dx: Yes AIMEE WATERS Nov 16, 2019 09:40
[2019-11-16 11:00] VITALS: BP 114/66
[2019-11-16 11:26] LABS: CALCIUM 7.6 mg/dL (8.5-10.1); CREATININE 3.9 mg/dL (0.7-1.3); GFR 15.1; MAGNESIUM 1.4 mg/dL (1.8-2.4); POTASSIUM 3.5 mmol/L (3.5-5.1)
[2019-11-16] MEDS ORDERED: MAGNESIUM SULFATE 4GM 100 ML IV ONE (11:45)
--- NOTE | 2019-11-16 11:52 | PDOC ---
Infectious Disease Note Subjective Subjective Doing well. No complaints except hungry and wants to go home Denies fevers/chills/aches Vital Sign Vital Signs Vital Signs Date Time Temp Pulse Resp B/P (MAP) Pulse Ox O2 Delivery O2 Flow Rate FiO2 11/16/19 08:28 75 151/67 11/16/19 07:39 98 Room Air 11/16/19 07:00 97.6 18 97.6 Physical Exam PHYSICAL EXAM GENERAL: Propped up in bed, alert, relaxed appearance HEENT: Pupils equally round, reactive. Normal conjunctivae. Oropharynx pink and moist. No lesions seen. NECK: Supple. LUNGS: Clear to auscultation. No accessory muscle use. HEART: S1 and S2. ABDOMEN: Obese, soft, less tender, diffuse. No guarding. EXTREMITIES: No gross edema or cyanosis. LUE-AV fistula unremarkable. SKIN: Warm to touch. Denies rash. NEUROLOGIC: Alert and answers questions appropriately. Right neck line is clean Labs Lab Laboratory Tests Test 11/16/19 11:05 Sodium Level 138 mmol/L (136-145) Potassium Level 3.5 mmol/L (3.5-5.1) Chloride Level 102 mmol/L (98-107) Carbon Dioxide Level 30 mmol/L (21-32) Anion Gap 6 (6-14) Blood Urea Nitrogen 40 mg/dL (8-26) Creatinine 3.9 mg/dL (0.7-1.3) Estimated GFR (Cockcroft-Gault) 15.1 Glucose Level 92 mg/dL (70-99) Calcium Level 7.6 mg/dL (8.5-10.1) Magnesium Level 1.4 mg/dL (1.8-2.4) Micro BLOOD CULTURE LC Preliminary Preliminary [BURKHOLDERIA CEPACIA GROUP] on 11/13/19 at 1445 ADDITIONAL REQUESTED ANTIBIOTICS TO FOLLOW BURKHOLDERIA (P.) CEPACIA BURKHOLDERIA CEPACIA GROUP ANTIMICROBIAL SUSCEPTIBILITY Preliminary Comment NEG RAFAT 56 BURKHOLDERIA (P.) CEPACIA ANTIBIOTIC RESULT INTERPRETATION CEFTAZIDIME 4 S LEVOFLOXACIN 1 S MEROPENEM <=1 S TRIMETHOPRIM/SULFAMETHOXAZOLE <=0.5/9.5 S Unless otherwise specified, Testing Performed by: [address] [id number] For Inquires, the Physician may contact the Microbiology department at [phone] Microbiology 11/13/19 Blood Culture - Preliminary, Resulted NO GROWTH AFTER 1 DAY 11/11/19 AFB Specimen Processing Tissue - Final, Resulted 11/11/19 Acid Fast Bacilli Culture, Resulted Pending 11/11/19 Gram Stain - Final, Resulted Objective Assessment Sepsis with lactic acidosis, POA. 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 11/12 - neg so far Colitis Pancytopenia, WBC now increased - improved today Fever, improved Diarrhea, C. diff neg 11/10 Transaminits, improved CKD on HD via AV fistula Severe PCM COPD Hypertension h/o prostate cancer h/o A-flutter Tobaccoism Plan Plan of Care Continue Meropenem and d/c minocylcine - no sensitivity yet - could be available 11/17 for potential step down. d/w micro d/c Zosyn 11/12 Treatment with daily Meropenem thru 11/22 Rx written CBC/CMP 11/20 and fax t [phone] F/u ID office 11/22 at 3:45 Ok d/c home if all arranged sensitivity can be followed up outpatient COVID-19 neg YEN TEMPLETON MD Nov 16, 2019 11:52
--- NOTE | 2019-11-16 12:22 | RAD ---
Procedure: Ultrasound and fluoroscopically placement of right internal jugular central venous catheter11/16/2019 10:18 AM Clinical Indication: Need central line for IV abx for 10 days in HD patient Discussion: The risks and benefits of the procedure were discussed the patient and/or their eligibility services representative. Informed consent was obtained. A timeout procedure was performed. All elements of maximal sterile barrier technique including the use of a cap, mask, sterile gown, sterile gloves, large sterile sheet, appropriate hand hygiene, and 2% chlorhexidine for cutaneous antisepsis (or acceptable alternative antiseptic per current guidelines) were followed for this procedure. The patient was prepped and draped in the usual sterile fashion. Ultrasound interrogation of the right neck revealed patency and compressibility of the right internal jugular vein. A 21-gauge micropuncture was then used to gain access to this vein under ultrasound guidance. A hard copy ultrasound image was recorded. A guidewire was advanced centrally. 5 [place] sheath was placed. Over a wire following dilatation, a triple-lumen central venous catheter was advanced centrally. Catheter was found to flush and aspirate normally. Fluoroscopic imaging demonstrates catheter to be normal in position. Catheter secured in place and a sterile dressing was applied. No immediate complications were identified. Impression: Successful ultrasound-guided placement of right internal jugular triple-lumen central venous catheter
--- NOTE | 2019-11-16 12:59 | PDOC ---
CARDIO Progress Notes Date and Time Date of Service 11/16/2019 Time of Evaluation 1040 Subjective Subjective: No Chest Pain, No shortness of breath, No Palpitations Vitals Vitals Vital Signs Date Time Temp Pulse Resp B/P (MAP) Pulse Ox O2 Delivery O2 Flow Rate FiO2 11/16/19 11:00 97.7 75 18 114/66 (82) 100 Room Air 97.7 Weight Weight [ ] Input and Output Intake and Output Intake and Output 11/16/19 07:00 Intake Total 290 ml Output Total 150 ml Balance 140 ml Intake Oral 240 ml IV Total 50 ml Output Urine Total 0 ml Stool Total 150 ml # Voids 4 Laboratory Labs Laboratory Tests Test 11/16/19 11:05 Sodium Level 138 mmol/L (136-145) Potassium Level 3.5 mmol/L (3.5-5.1) Chloride Level 102 mmol/L (98-107) Carbon Dioxide Level 30 mmol/L (21-32) Anion Gap 6 (6-14) Blood Urea Nitrogen 40 mg/dL (8-26) Creatinine 3.9 mg/dL (0.7-1.3) Estimated GFR (Cockcroft-Gault) 15.1 Glucose Level 92 mg/dL (70-99) Calcium Level 7.6 mg/dL (8.5-10.1) Magnesium Level 1.4 mg/dL (1.8-2.4) Microbiology Micro Microbiology 11/14/19 Blood Culture - Preliminary, Resulted NO GROWTH AFTER 2 DAYS 11/11/19 AFB Specimen Processing Tissue - Final, Resulted 11/11/19 Acid Fast Bacilli Culture, Resulted Pending 11/11/19 Gram Stain - Final, Resulted Physical Exam HEENT: Neck Supple W Full Motion Chest: Symmetric LUNGS: Other (diminished bases) Heart: irregularly irregular (AFIB) Abdomen: Soft N/T Extremities: No Calf Tenderness, Other (2+ bilateral LE pitting edema) Neurology: alert, oriented, follow commands Assessment Assessment 1. AFIB RVR: paroxysmal by h Converted to AFIB as an inpt, now rate controlled 2. Diarrhea/vomiting: colitis? GI following 3. HTN urgency: better controlled 4. HLP 5. ESRD 6. COPD with continued tobaccoism 7. Thrombocytopenia: hemonc following PLT 78. 8. Sepsis/fever/.bacteremia: negative covid 9. Possible syncope: due to dehydration 10. Metabolic encephalopathy: better 11. Chronic diastolic/systolic CHF: compensated 12. Cardiomyopathy: EF at 35%. could be tachy mediated. Recommendations 1. Recent MCOT with <1% AFIB burden. Refractory episode due to extracardiac issues. Metoprolol 50 mg bid and will continue eliquis currently at low dose for now given his low PLT for stroke prevention. 2. Secondary prevention measures. TTE today 3. Follow up as scheduled and will consider for outpt CVN if pt remains in AFIB upon f/u 4. Will plan for outpt MPI 5. Consider ARB or ACEi if OK with nephrology Justicifation of Admission Dx: Justifications for Admission: Justification of Admission Dx: Yes AFSHAN BARRETT INVENTORY TRANSCRIBER Nov 16, 2019 12:59
--- NOTE | 2019-11-16 14:11 | SNU/HH DC ---
DISCHARGE WITH HOME HEALTH DISCHARGE INFORMATION: Discharge Date: Nov 16, 2019 Final Diagnosis: Problems Medical Problems: (1) Colitis Status: Acute (2) Delirium Status: Acute (3) Sepsis Status: Acute Condition on Discharge: Stable CODE STATUS: Code Status: Full HOME HEALTH: Face to Face: I certify this patient is under my care and that I, or a nurse practitioner or physician's laundry assistant working with me, had a face to face encounter that meets the physician face to face encounter requirements with this patient on 11/16/2019. Medical Complications: COPD, Other (ESRD on dialysis) Long Term For: IV Infusion Therapy, Medication Management, Pain Management RN For Eval/Treatment: Yes Physical Therapy For: Evalulation/Treatment Occupational Therapy For: Evaluation/Treatment Home Health Aide For: Self-care Pt Meets Homebound Status: Extreme weakness w/ amb. POST DISCHARGE ORDERS: Activity Instructions for Disc: Activity as tolerated Weight Bearing Status after Di: As tolerated Bathing Instructions: Shower-keep dressing dry DIET AFTER DISCHARGE: Renal Wound/Incision Care: Change dressing, No wound care needed CHECKS AFTER DISCHARGE: Checks after discharge: Check blood press - daily, Check blood sugar, ac/hs FOLLOW-UP: Additional Instructions: Continue Meropenem and d/c minocylcine - no sensitivity yet - could be available 11/17 for potential step down. d/c Zosyn 11/12 Treatment with daily Meropenem thru 11/22 Rx written CBC/CMP 11/20 and fax to [phone] F/u ID office 11/22 at 3:45 TREATMENT/EQUIPMENT ORDERS: Infusion Equipment, home use: PICC Line CERTIFICATION STATEMENT: Certification Statement: Certification Statement: Based on the above finding, I certify that this patient is confined to the home and needs intermittent shelter care, physical therapy and/or speech therapy, or continues to need occupational therapy.~ This patient is under my care, and I have initiated the establishment of the plan of care.~ This patient will be followed by myself or a community physician who will periodically review the plan of care. Home Meds Active Scripts Lactobacillus Rhamnosus Gg (CULTURELLE) 1 Each Cap.sprink, 1 CAP PO BID for Diarrhea for 30 Days, #60 CAP Prov:FRANCISCO ALEXANDER MD 11/16/19 Metoprolol Tartrate (METOPROLOL TARTRATE) 50 Mg Tablet, 50 MG PO BID for CAD for 90 Days, #180 TAB Prov:FRANCISCO ALEXANDER MD 11/16/19 Meropenem (MERREM) 500 Mg Vial, 500 MG IV QHS for Burkholderia infection for 7 Days, #7 EACH Prov:FRANCISCO ALEXANDER MD 11/16/19 Hydrocodone/Apap 5-325 (NORCO 5-325 TABLET) 1 Each Tablet, 1 TAB PO Q6-8HRS PRN for PAIN for 6 Days, #16 TAB Prov:FRANCISCO ALEXANDER MD 11/16/19 Reported Medications [place]-3/Dha/Epa/Fish Oil (Fish Oil 1,000 mg Softgel) 1,000 Mg Capsule, 1000 MG PO DAILY for supplement, CAP 11/10/19 Sucralfate (SUCRALFATE) 1 Gm Tablet, 1 GM PO QID for gastritis, TAB 11/10/19 Cholecalciferol (Vitamin D3) (Vitamin D3) 10 Mcg Tablet, 2000 UNITS PO DAILY for supplement, TAB 11/10/19 Folic Acid/Vitamin B Comp W-C (BISHOP-BRANDEN TABLET) 0.8 Mg Tablet, 0.8 MG PO DAILY for supplement, TAB 11/10/19 Isosorbide Mononitrate (ISOSORBIDE MONONITRATE ER) 30 Mg Tab.er.24h, 30 MG PO BID for htn, TAB.SR 11/10/19 Apixaban (ELIQUIS) 2.5 Mg Tablet, 2.5 MG PO BID for afib, TAB 11/10/19 Diphenhydramine Hcl (BENADRYL) 25 Mg Capsule, 50 MG PO PRN Q6HRS PRN for itching, CAP 06/06/19 Alprazolam (XANAX) 0.5 Mg Tablet, 0.5 MG PO PRN Q6HRS PRN for ANXIETY / AGITATION, TAB 0 Refills 06/06/19 Tamsulosin Hcl (FLOMAX) 0.4 Mg Cap.er.24h, 0.4 MG PO BID for BPH, TAB 03/11/19 Simvastatin (SIMVASTATIN) 20 Mg Tablet, 30 MG PO HS for FOR CHOLESTEROL, #30 TAB 0 Refills 03/11/19 Pantoprazole Sodium (PANTOPRAZOLE SODIUM ) 40 Mg Tablet.dr, 40 MG PO BID for GERD, TAB 03/11/19 Bupropion Hcl (BUPROPION XL) 150 Mg Tab.er.24h, 150 MG PO QAM for depression, TAB.SR 03/11/19 Budesonide/Formoterol Fumarate (SYMBICORT 160-4.5 MCG INHALER) 10.2 Gm Hfa.aer.ad, 2 PUFF IH BID for SOB, #10.6 GM 3 Refills 03/11/19 Albuterol Sulfate (VENTOLIN HFA INHALER) 18 Gm Hfa.aer.ad, 2 PUFF INH QID for SOB, INHALER 0 Refills 03/11/19 Discontinued Reported Medications Carvedilol (CARVEDILOL ) 6.25 Mg Tablet, 6.25 MG PO BIDWMEALS for CARDIAC, TAB 03/11/19 Rivaroxaban (XARELTO) 15 Mg Tablet, 15 MG PO QHS for Afib, TAB 03/11/19 Amlodipine Besylate (AMLODIPINE BESYLATE) 5 Mg Tablet, 5 MG PO BID for HTN, TAB 03/11/19 FRANCISCO ALEXANDER MD Nov 16, 2019 14:11
[2019-11-16] MEDS ORDERED: MERO500V22 IV (14:16)
[2019-11-16] MEDS ORDERED: METO50TA6 PO (14:16)
[2019-11-16] MEDS ORDERED: HYDR-3164 PO (14:16)
[2019-11-16] MEDS ORDERED: LACT1CAP19 PO (14:16)
--- NOTE | 2019-11-16 14:39 | CARD ---
MR#: [id number] Date of Study: 11/16/2019 Ordering Physician: AFSHAN BARRETT, Referring Physician: AFSHAN BARRETT, Tech: Mishel Bernard APPROVED REPORT EXAM: Two-dimensional and M-mode echocardiogram with Doppler and color Doppler. Other Information Quality : AverageHR: 79bpm INDICATION Atrial Fibrillation 2D DIMENSIONS RVDd3.3 (2.9-3.5cm)Left Atrium(2D)4.5 (1.6-4.0cm) IVSd1.3 (0.7-1.1cm)Aortic Root(2D)3.5 (2.0-3.7cm) LVDd6.2 (3.9-5.9cm)LVOT Diameter2.2 (1.8-2.4cm) PWd1.3 (0.7-1.1cm)LVDs4.0 (2.5-4.0cm) FS (%) 35.9 %SV127.0 ml Aortic Valve AoV Peak Tl.150.0cm/sAoV VTI28.1cm AO Peak GR.9.0mmHgLVOT Peak Tl.90.4cm/s LVOT VTI 18.20cmAO Mean GR.5mmHg SARA (VMAX)1.50wi0BXN (VTI)2.49cm2 Mitral Valve MV E Ueewfrls97.6cm/sMV E Peak Gr.102mmHg MV DECEL [id number] A Dalyaaoh81.1cm/s MV E Mean Gr.2mmHgMV [id number] E/A Ratio1.8MVA (PHT)3.51cm2 TDI E/Lateral E'9.5E/Medial E'12.4 Pulmonary Valve PV Peak Xklbwfpw13.3cm/sPV Peak Grad.2mmHg Tricuspid Valve TR P. Khpivddr420gx/sTR Peak Gr.31mmHg LEFT VENTRICLE The Left Ventricle is mildly dilated. There is mild concentric left ventricular hypertrophy. The syst olic function is moderately impaired. The Ejection Fraction is estimated at 35%. There is moderate gl obal hypokinesis. RIGHT VENTRICLE The right ventricle is normal size. There is normal right ventricular wall thickness. The right ventr icular systolic function is normal. ATRIA The left atrium is mildly dilated. The right atrium is borderline dilated. The interatrial septum is intact with no evidence for an atrial septal defect or patent foramen ovale as noted on 2-D or Dopple r imaging. AORTIC VALVE The aortic valve is thickened but opens well. Doppler and Color Flow revealed trace aortic regurgitat ion. There is no significant aortic valvular stenosis. Calculated aortic valve area is 2.78 cm2 with maximum pressure gradient of 11 mmHg and mean pressure gradient of 6 mmHg. MITRAL VALVE The mitral valve is mildly thickened. There is no evidence of mitral valve prolapse. There is no mitr al valve stenosis with an mean gradient of 2.1 mmHg. Doppler and Color Flow revealed moderate mitral valve regurgitation. TRICUSPID VALVE The tricuspid valve is normal in structure and function. Doppler and Color Flow revealed trace to mil d tricuspid regurgitation with an estimated PAP of 48 mmHg. There is no tricuspid valve stenosis. PULMONIC VALVE The pulmonic valve is not well visualized. Doppler and Color Flow revealed no pulmonic valvular regur gitation. GREAT VESSELS The aortic root is normal in size. The IVC is dilated. PERICARDIAL EFFUSION There is no evidence of significant pericardial effusion. Critical Notification Critical Value: No <Conclusion> The Left Ventricle is mildly dilated. The systolic function is moderately impaired. The Ejection Fraction is estimated at 35%. There is moderate global hypokinesis. There is mild concentric left ventricular hypertrophy. Doppler and Color Flow revealed trace aortic regurgitation. There is no significant aortic valvular stenosis. Doppler and Color Flow revealed moderate mitral valve regurgitation. Doppler and Color Flow revealed trace to mild tricuspid regurgitation with an estimated PAP of 48 mmH g. Signed by : Rishabh Bowers MD Electronically Approved : 11/16/2019 14:39:09
--- NOTE | 2019-11-16 14:44 | NUR ---
SW following. Reviewed chart and discussed with RN. Pt on room air and no 02 setup needed per RN. Pt can discharge home today with and home infusion services for IV Meropenem. OSKAR met with pt who is agreeable and looking forward to discharge today. Pt on room air. OSKAR phoned and faxed final [facility], , k (fax) and [facility], , (fax). Spoke with Kait and confirmed orders were received and abx will be delivered. OSKAR coordinated care with both Faye from [facility] and Hilario from [facility]. Pt also to resume out-patient dialysis. OSKAR also phoned and faxed discharge orders to [facility], , (fax). OSKAR spoke with pt's Lily ([phone]) to answer questions r/t pt's discharge today. Pt's informed that abx is $15.83 daily but will likely be $0 as pt will have likely met his deductible from this hospitalization. Pt's informed that per Dr. Ray's order pt is to have Meropenem daily until 11/23/2019. Pt's still wanted to know the costs associated with daily visits to the out-patient infusion clinic at [facility], , (fax). OSKAR phoned and faxed referral to [facility] who checked with Sachi and stated that the cost for the medication would be the same but that pt would have additional expenses for administration of the medication. asked if it would be cheaper for pt to go daily to out-patient infusion center at [place] Addendum: 11/16/19 at 1511 by [employer] [place] SW note entered in error
--- NOTE | 2019-11-16 14:52 | PDOC ---
[employer] PROGRESS NOTE Date of Service DOS: DATE: 11/16/19 TIME: 14:51 Chief Complaint Chief Complaint ASSESSMENT AND PLAN: Nausea, vomiting, Mild diffuse wall thickening involving the descending and sigmoid colon, favored represent colitis, may be infectious or inflammatory. diarrhea, pancytopenia abdominal pain, shortness of breath, abnormal chest x-ray, colitis C diff negative Gram negative bacteremia Hx of PUD but no clear peptic symptoms small pleural effusion. sepsis acute metabolic encephalopathy , improving 11/12 Sepsis with lactic acidosis, POA. BC positive for GNR from 11/09. Colitis BLOOD CULTURE LC Preliminary Preliminary [[facility]] on 11/13/19 at 1445 [facility] Unless otherwise specified, Testing Performed by: [facility] [address] [place] [address] For Inquires, the Physician may contact the Microbiology department at [phone] admitted. consult GI and Pulmonary. IV fluids if Nephrology agrees. Consult Nephrology for dialysis management. Full code. P.r.n. Tylenol, p.r.n. Zofran, IV antibiotics, zosyn home meds, DVT prophylaxis. with neutropenic colitis, etiology to be determined. cultures and viral hepatitis serologies. Heme consult for possible BM biopsy. 38 min pt exam, chart review, > 50% of time spent with exam, chart review, pt care coordination History of Present Illness History of Present Illness Mr Leal 79 yo M w/ PMHx ESRD, HTN, smoker who presents with nausea, vom iting, and diarrhea, fever. He came in by EMS. It has been slowly worsening over the past couple of days, but an hour before dialysis each day is when it gets worse. He called dialysis and stated he did not feel well. He had multiple episodes of nausea. He had some confusion. 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 On empiric carbapenem currently. Abdominal pain improved. Overall he has no complaints. Less confused. 11/14: Abdominal pain improved. Still confused. No SOB or CP. Repeat blood cultures with NGTD. PICC line inserted. On K and mag replacement protocol per nephrology. 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 And follow-up with ID in clinic. He and his are deciding on home infusions versus outpatient infusions at [facility] currently. Vitals/I&O Vitals/I&O: Vital Signs Date Time Temp Pulse Resp B/P (MAP) Pulse Ox O2 Delivery O2 Flow Rate FiO2 11/16/19 11:00 97.7 75 18 114/66 (82) 100 Room Air 97.7 I & O 11/15/19 11/15/19 11/16/19 15:00 23:00 07:00 Intake Total 120 ml 170 ml Output Total 150 ml 0 ml Balance -30 ml 170 ml Physical Exam Physical Exam: GENERAL: Propped up in bed, alert, relaxed appearance HEENT: Pupils equally round, reactive. Normal conjunctivae. Oropharynx pink and moist. No lesions seen. NECK: Supple. LUNGS: Clear to auscultation. No accessory muscle use. HEART: S1 and S2. ABDOMEN: Obese, soft, less tender, diffuse. No guarding. EXTREMITIES: No gross edema or cyanosis. LUE-AV fistula unremarkable. SKIN: Warm to touch. Denies rash. NEUROLOGIC: Alert and answers questions appropriately. Right neck line is clean General: Alert, Oriented X3, Cooperative, No acute distress Heart: Other (AFIB RVR) Lungs: Clear Abdomen: Soft, No tenderness Extremities: No cyanosis, Other (1-2+ bilateral pedal edema) Skin: No breakdown Labs Labs: Laboratory Tests Test 11/15/19 22:20 11/16/19 11:05 Stool Campylobacter PCR Negative (NEGATIVE) Stool E. coli Shiga Toxins (PCR) Negative (NEGATIVE) Stool Salmonella PCR Negative (NEGATIVE) Stool Shigella PCR Negative (NEGATIVE) Sodium Level 138 mmol/L (136-145) Potassium Level 3.5 mmol/L (3.5-5.1) Chloride Level 102 mmol/L (98-107) Carbon Dioxide Level 30 mmol/L (21-32) Anion Gap 6 (6-14) Blood Urea Nitrogen 40 mg/dL (8-26) Creatinine 3.9 mg/dL (0.7-1.3) Estimated GFR (Cockcroft-Gault) 15.1 Glucose Level 92 mg/dL (70-99) Calcium Level 7.6 mg/dL (8.5-10.1) Magnesium Level 1.4 mg/dL (1.8-2.4) Assessment and Plan Assessmemt and Plan Problems Medical Problems: (1) Colitis Status: Acute (2) Delirium Status: Acute (3) Sepsis Status: Acute Comment Review of Relevant I have reviewed the following items karey (where applicable) has been applied. Medications: Current Medications Medications (Trade) Dose Ordered Sig/Diane Route PRN Reason Start Time Stop Time Status Last Admin Dose Admin Metoprolol Tartrate (Lopressor) 50 mg BID PO 11/15/19 21:00 11/16/19 08:27 Magnesium Sulfate 100 ml @ 25 mls/hr 1X ONCE IV 11/16/19 11:45 11/16/19 15:44 11/16/19 12:38 Justicifation of Admission Dx: Justifications for Admission: Justification of Admission Dx: Yes FRANCISCO ALEXANDER MD Nov 16, 2019 14:52
[2019-11-16 15:00] VITALS: BP 122/68
--- NOTE | 2019-11-16 15:11 | NUR ---
SW following. Reviewed chart and discussed with RN. Pt on room air and no 02 setup needed per RN. Pt can discharge home today with HH and home infusion services for IV Meropenem. OSKAR met with pt who is agreeable and looking forward to discharge today. Pt on room air. OSKAR phoned and faxed final discharge orders to [facility], , (fax) and [facility], , (fax). Spoke with Kait and confirmed orders were received and abx will be delivered. OSKAR coordinated care with both Faye from [facility] and Hilario from [facility]. Pt also to resume out-patient dialysis. OSKAR also phoned and faxed discharge orders to [facility], , (fax). OSKAR spoke with pt's Lily ([phone]) to answer questions r/t pt's discharge today. Pt's informed that per [facility] the abx is $15.83 daily but will likely be $0 as pt will have likely met his deductible from this hospitalization. Pt's informed that per Dr. Ray's order pt is to have Meropenem daily until 11/23/2019. Pt's still wanted to know the costs associated with daily visits to the out-patient infusion clinic at [facility], , (fax). OSKAR phoned and faxed referral to [facility] who checked with Sachi and stated that the cost for the medication would be the same but that pt would have additional expenses for administration of the medication. -Pt's called OSKAR back to say that she spoke with MARISA and that we don't understand her insurance and that she and pt do not have co-pays. [facility] at request of pt's . Pt's will take pt daily to the out-patient infusion clinic at [facility]. Spoke with Sonam at [facility] who confirmed she has all the discharge paperwork needed and stated pt's first appointment is 11/17/2019 at 3pm. Pt's communicated understanding and will provide pt will transportation home today after his dose of Meropenem. RN notified. No additional SW needs at this time.
[2019-11-16] MEDS: MEROPENEM 500 MG in IV NORMAL SALINE 50ML 50 ML IV SCH (16:06)
[2019-11-16] MEDS ORDERED: LOSA25TA12 PO (16:26)
--- NOTE | 2019-11-16 17:10 | NUR ---
Discharge Note: Patient was discharged home with home with self care. Patient was discharged with newly placed right IJ central line, for outpatient antibiotic. Patient was given discharge summary/instructions, follow-ups, and educational material. Patients new prescriptions were sent and/or called into patients preferred pharmacy. Losartan 25mg tab daily was called into his pharmacy per Dr. Whatley's orders. Patient did not have any further questions or concerns. Patient was aware of [facility] calling him tomorrow to set up a time for the antibiotic infusions. Patient was taken down to the ER entrance via wheelchair with all personal belongings, accompanied by [facility], where his was waiting for him to take him home.
[2019-11-26] MEDS ORDERED: PANTOPRAZOLE 40 MG TABLET.DR. PO ONE (03:00)
[2019-11-29] MEDS ORDERED: METO25TA4 PO (10:47)
[2019-11-29] MEDS ORDERED: CLOP75TA PO (10:47)
--- NOTE | 2019-11-29 15:32 | PDOC3 ---
Discharge Summary Visit Information Date of Admission: Nov 10, 2019 Date of Discharge: Nov 16, 2019 Admitting Diagnosis: Colitis Final Diagnosis Problems Medical Problems: (1) Colitis Status: Acute (2) Delirium Status: Acute (3) Sepsis Status: Acute Brief Hospital Course Allergies Allergies Coded Allergies Type Severity Reaction Last Updated Verified regadenoson Allergy Severe Anaphylaxis 06/07/19 Yes Iodinated Contrast Media Allergy Intermediate 06/07/19 Yes Nitrofuran Analogues Allergy Intermediate rash 06/07/19 Yes bumetanide Allergy Intermediate 11/11/19 Yes chlorothiazide Allergy Intermediate 11/11/19 Yes dutasteride Allergy Intermediate rash 06/07/19 Yes finasteride Allergy Intermediate hives 06/07/19 Yes furosemide Allergy Intermediate 11/11/19 Yes hydrochlorothiazide Allergy Intermediate 11/11/19 Yes spironolactone Allergy Intermediate 11/11/19 Yes NSAIDS (Non-Steroidal Anti-Inflamma Adverse Reaction Intermediate 06/07/19 Yes Brief Hospital Course Mr Leal 79 yo M w/ PMHx ESRD, HTN, smoker who presents with nausea, vomiting, and diarrhea, fever. He came in by EMS. It has been slowly worsening over the past couple of days, but an hour before dialysis each day is when it gets worse. He called dialysis and stated he did not feel well. He had multiple episodes of nausea. He had some confusion. 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 On empiric carbapenem currently. Abdominal pain improved. Overall he has no complaints. Less confused. 11/14: Abdominal pain improved. Still confused. No SOB or CP. Repeat blood cultures with NGTD. PICC line inserted. On K and mag replacement protocol per nephrology. 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 And follow-up with ID in clinic. He and his are deciding on home infusions + home health. Continue Meropenem and d/c minocylcine - no sensitivity yet - could be available 11/17 for potential step down. d/c Zosyn 11/12 Treatment with daily Meropenem thru 11/22 Rx written CBC/CMP 11/20 and fax to [phone] F/u ID office 11/22 at 3:45 Consults: ID Problem list: Nausea, vomiting, Mild diffuse wall thickening involving the descending and sigmoid colon, favored represent colitis, may be infectious or inflammatory. diarrhea, pancytopenia abdominal pain, shortness of breath, abnormal chest x-ray, colitis C diff negative Gram negative bacteremia Hx of PUD but no clear peptic symptoms small pleural effusion. sepsis acute metabolic encephalopathy , improving 11/12 Sepsis with lactic acidosis, POA. 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 BLOOD CULTURE LC Preliminary Preliminary [[facility]] on 11/13/19 at 1445 [facility] Unless otherwise specified, Testing Performed by: [facility] [address] [place] [address] For Inquires, the Physician may contact the Microbiology department at [phone] Consult GI and Pulmonary, nephrology, Heme/Onc, ID 38 min pt exam, chart review, > 50% of time spent with exam, chart review, pt care coordination Discharge Information Condition at Discharge: Improved Follow Up: Weeks (1) Disposition/Orders: D/C to Home w/ HH Scheduled Albuterol Sulfate (Ventolin Hfa Inhaler) 18 Gm Hfa.aer.ad, 2 PUFF INH QID for SOB, Ref 0 (Reported) Entered as Reported by: ELOINA HERRERA RN on 03/11/192202 Last Action: Converted on 11/11/19730 by KIMBERLI BAUER Amlodipine Besylate (Amlodipine Besylate) 5 Mg Tablet, 5 MG PO BID for , (Reported) Entered as Reported by: CHINEDU RAM RN on 11/26/19 1050 Apixaban (Eliquis) 2.5 Mg Tablet, 2.5 MG PO BID for afib, (Reported) Next dose tonight 11/15 Entered as Reported by: JONEL CALDWELL on 11/10/192000 Last Action: Continued on 11/11/19730 by KIMBERLI BAUER Budesonide/Formoterol Fumarate (Symbicort 160-4.5 Mcg Inhaler) 10.2 Gm Hfa.aer.ad, 2 PUFF IH BID for SOB, #10.6 Ref 3 (Reported) Entered as Reported by: ELOINA HERRERA RN on 03/11/192202 Last Action: Converted on 11/11/19730 by KIMBERLI BAUER Bupropion Hcl (Bupropion Xl) 150 Mg Tab.er.24h, 150 MG PO QAM for depression, (Reported) Next dose tomorrow 11/16 Entered as Reported by: ELOINA HERRERA RN on 03/11/192202 Last Action: Continued on 11/11/19730 by KIMBERLI BAUER Cholecalciferol (Vitamin D3) (Vitamin D3) 10 Mcg Tablet, 2,000 UNITS PO DAILY for supplement, (Reported) Next dose tomorrow 11/16 Entered as Reported by: JONEL CALDWELL on 11/10/192009 Last Action: Converted on 11/11/19730 by KIMBERLI BAUER Clopidogrel Bisulfate (Clopidogrel) 75 Mg Tablet, 75 MG PO DAILYWBKFT for Recent cardiac stent for 90 Days, #90 Prescribed by: KONSTANTIN VILLATORO on 11/29/19 1047 Folic Acid/Vitamin B Comp W-C (Mandi-Debbie Tablet) 0.8 Mg Tablet, 0.8 MG PO DAILY for supplement, (Reported) Next dose tomorrow 11/16 Entered as Reported by: JONEL CALDWELL on 11/10/192009 Last Action: Continued on 11/11/19730 by KIMBERLI BAUER Isosorbide Mononitrate (Isosorbide Mononitrate Er) 30 Mg Tab.er.24h, 30 MG PO BID for htn, (Reported) Next dose tonight 11/15 Entered as Reported by: JONEL CALDWELL on 11/10/192009 Last Action: Continued on 11/11/19730 by KIMBERLI BAUER Lactobacillus Rhamnosus Gg (Culturelle) 1 Each Cap.sprink, 1 CAP PO BID for Diarrhea for 30 Days, #60 Prescribed by: FRANCISCO ALEXANDER MD on 11/16/19 1416 Losartan Potassium (Losartan Potassium) 25 Mg Tablet, 25 MG PO DAILY for Hypertension, (Reported) Do not take prior to going to dialysis Entered as Reported by: ALON BRIAN on 11/16/19 1626 Meropenem (Merrem) 500 Mg Vial, 500 MG IV QHS for Burkholderia infection for 7 Days, #7 Prescribed by: FRANCISCO ALEXANDER MD on 11/16/19 1416 Metoprolol Tartrate (Metoprolol Tartrate) 50 Mg Tablet, 50 MG PO BID for CAD for 90 Days, #180 Prescribed by: FRANCISCO ALEXANDER MD on 11/16/19 1416 Metoprolol Tartrate (Metoprolol Tartrate) 25 Mg Tablet, 25 MG PO BID for cad for 90 Days, #180 Prescribed by: KONSTANTIN VILLATORO on 11/29/19 1047 [place]-3/Dha/Epa/Fish Oil (Fish Oil 1,000 mg Softgel) 1,000 Mg Capsule, 1,000 MG PO DAILY for supplement, (Reported) Next dose tomorrow 11/16 Entered as Reported by: JONEL CALDWELL on 11/10/192009 Last Action: Converted on 11/11/19730 by KIMBERLI BAUER Pantoprazole Sodium (Pantoprazole Sodium ) 40 Mg Tablet.dr, 40 MG PO BID for GERD, (Reported) Next dose tomorrow 11/16 Entered as Reported by: ELOINA HERRERA RN on 03/11/192202 Last Action: Continued on 11/11/19730 by KIMBERLI BAUER Simvastatin (Simvastatin) 20 Mg Tablet, 30 MG PO HS for FOR CHOLESTEROL, #30 Ref 0 (Reported) Next dose tonight 11/15 Entered as Reported by: ELOINA HERRERA RN on 03/11/192202 Last Action: Continued on 11/11/19730 by KIMBERLI BAUER Sucralfate (Sucralfate) 1 Gm Tablet, 1 GM PO QID for gastritis, (Reported) Next dose tonight 11/15 Entered as Reported by: JONEL CALDWELL on 11/10/192009 Last Action: Continued on 11/11/19730 by KIMBERLI BUAER Tamsulosin Hcl (Flomax) 0.4 Mg Cap.er.24h, 0.4 MG PO BID for BPH, (Reported) Next dose tonight 11/15 Entered as Reported by: ELOINA HERRERA RN on 03/11/192202 Last Action: Continued on 11/11/19730 by KIMBERLI BAUER Scheduled PRN Alprazolam (Xanax) 0.5 Mg Tablet, 0.5 MG PO PRN Q6HRS PRN for ANXIETY / AGITATION, Ref 0 (Reported) Entered as Reported by: YI HERNANDEZ on 06/06/19 1602 Last Action: Continued on 11/11/19730 by KIMBERLI BAUER Diphenhydramine Hcl (Benadryl) 25 Mg Capsule, 50 MG PO PRN Q6HRS PRN for itching, (Reported) Entered as Reported by: YI HERNANDEZ on 06/06/19 1602 Hydrocodone/Apap 5-325 (Charlotte 5-325 Tablet) 1 Each Tablet, 1 TAB PO Q6-8HRS PRN for PAIN for 6 Days, #16 Prescribed by: FRANCISCO ALEXANDER MD on 11/16/19 1417 Justicifation of Admission Dx: Justifications for Admission: Justification of Admission Dx: Yes FRANCISCO ALEXANDER MD Nov 29, 2019 15:32
[2019-12-08] MEDS ORDERED: ASPI-886 PO (08:50)
[2019-12-08] MEDS ORDERED: ISOS30TA4 PO (09:01)
== END 2019-11-16 17:15 | disposition home health service (06) | DRG 871 ==
LOC: ER 14:36 → 6 SOUTH 17:16 → 5 NORTH 11-13 05:42
PROVIDERS: ADMIT Internal Medicine; ATTEND Internal Medicine
PROC: 5A1D70Z Performance of Urinary Filtration, Intermittent, Less than 6 Hours Per Day (ICD-10-PCS; principal; 2019-11-15)
PROC: B543ZZA Ultrasonography of Right Jugular Veins, Guidance (ICD-10-PCS; 2019-11-16)
PROC: B5131ZA Fluoroscopy of Right Jugular Veins using Low Osmolar Contrast, Guidance (ICD-10-PCS; 2019-11-16)
PROC: 05HY33Z Insertion of Infusion Device into Upper Vein, Percutaneous Approach (ICD-10-PCS; 2019-11-16)
DX: A41.50 Gram-negative sepsis, unspecified (principal); G93.41 Metabolic encephalopathy; E43 Unspecified severe protein-calorie malnutrition; N18.6 End stage renal disease; D61.818 Other pancytopenia; I13.2 Hypertensive heart and chronic kidney disease with heart failure and with stage 5 chronic kidney disease, or end stage renal disease; E87.2 Acidosis; I42.9 Cardiomyopathy, unspecified; I50.42 Chronic combined systolic (congestive) and diastolic (congestive) heart failure; A41.9 Sepsis, unspecified organism; Z20.828 Contact with and (suspected) exposure to other viral communicable diseases; M19.90 Unspecified osteoarthritis, unspecified site; K21.9 Gastro-esophageal reflux disease without esophagitis; F41.9 Anxiety disorder, unspecified; F32.9 Major depressive disorder, single episode, unspecified; I48.91 Unspecified atrial fibrillation; F17.210 Nicotine dependence, cigarettes, uncomplicated; E78.5 Hyperlipidemia, unspecified; K52.89 Other specified noninfective gastroenteritis and colitis; E87.6 Hypokalemia; Z68.25 Body mass index [BMI] 25.0-25.9, adult; J44.9 Chronic obstructive pulmonary disease, unspecified; E21.3 Hyperparathyroidism, unspecified; B96.89 Other specified bacterial agents as the cause of diseases classified elsewhere; I16.0 Hypertensive urgency; K82.8 Other specified diseases of gallbladder; N28.1 Cyst of kidney, acquired; R65.20 Severe sepsis without septic shock; Z99.2 Dependence on renal dialysis; Z98.49 Cataract extraction status, unspecified eye; Z85.46 Personal history of malignant neoplasm of prostate; Z87.19 Personal history of other diseases of the digestive system; Z87.440 Personal history of urinary (tract) infections; Z87.11 Personal history of peptic ulcer disease; Z88.8 Allergy status to other drugs, medicaments and biological substances; Z91.041 Radiographic dye allergy status; Z82.49 Family history of ischemic heart disease and other diseases of the circulatory system; K52.9 Noninfective gastroenteritis and colitis, unspecified
CPT/HCPCS: 36415; 36556; 70450; 71045; 74176; 76705; 76937; 77001; 80048; 80053; 80069; 80076; 81001; 82525; 82607; 83520; 83540; 83550; 83605; 83690; 83735; 84165; 84443; 84484; 85007; 85025; 85045; 86705; 86709; 86803; 87040; 87116; 87205; 87340; 87493; 87505; 93005; 93306; 94640; 94760; 96361; 96374; C1751; C1892; J0696; J2185; J2543; J3475; J3490; J7030; P9612; 99285-25; G0378; J7613; J7626; U0003-CS

== ENCOUNTER 2019-11-26 10:22 | Inpatient (IN) | payer MEDICARE, BC ==
[~2019-11-26] VITALS: Ht 182.9 cm; Wt 83.1 kg
[~2019-11-26 10:22] MED LIST changes: +APIX2.5T PO; +CHOL400T55 PO; +FOLI0.8T21 PO; +ISOS30TA4 PO; +LACT1CAP19 PO; +LOSA25TA12 PO; +MERO500V22 IV; +METO50TA6 PO; +OMEG100021 PO; +SUCR1TAB PO
--- NOTE | 2019-11-26 10:30 | NUR ---
Pt transferred from [place] to room 211. Pt arrived via gurney with ambulance staff. Pt ambulated to bed with standby assistance. No complaints of chest pain or shortness of breath at this time. Heparin drip infusing at 9.4 mls/hr. VSS. Tele monitor applied, pt in afib with controlled rate. notified of patient arrival. Orders received. Call light within reach. Will continue to monitor.
--- NOTE | 2019-11-26 10:34 | PDOC1 ---
History and Physical Date of Admission Date of Admission DATE: 11/26/19 TIME: 10:34 Identification/Chief Complaint Chief Complaint Mr Leal 79 yo M w/ PMHx ESRD, HTN, smoker who presents NSTEMI FROM [facility] ER He came in by EMS. 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 Endocrine: Hyperparathyroidism Past Surgical History Past Surgical History: Hernia Repair Family History Family History: Coronary Artery Disease, Hypertension Social History Smoke: No ALCOHOL: none Drugs: None Current Medications Current Medications Active Scripts Active Culturelle (Lactobacillus Rhamnosus Gg) 1 Each Cap.sprink 1 Cap PO BID 30 Days Metoprolol Tartrate 50 Mg Tablet 50 Mg PO BID 90 Days Merrem (Meropenem) 500 Mg Vial 500 Mg IV QHS 7 Days Hudson 5-325 Tablet (Acetaminophen/Hydrocodone Bitart) 1 Each Tablet 1 Tab PO Q6- 8HRS PRN 6 Days Reported Losartan Potassium 25 Mg Tablet 25 Mg PO DAILY Do not take prior to going to dialysis Fish Oil 1,000 mg Softgel ([place]-3/Dha/Epa/Fish Oil) 1,000 Mg Capsule 1,000 Mg PO DAILY Next dose tomorrow 11/16 Sucralfate 1 Gm Tablet 1 Gm PO QID Next dose tonight 11/15 Vitamin D3 (Cholecalciferol (Vitamin D3)) 10 Mcg Tablet 2,000 Units PO DAILY Next dose tomorrow 11/16 Mandi-Debbie Tablet (Folic Acid/Vitamin B Comp W-C) 0.8 Mg Tablet 0.8 Mg PO DAILY Next dose tomorrow 11/16 Isosorbide Mononitrate Er (Isosorbide Mononitrate) 30 Mg Tab.er.24h 30 Mg PO BID Next dose tonight 11/15 Eliquis (Apixaban) 2.5 Mg Tablet 2.5 Mg PO BID Next dose tonight 11/15 Benadryl (Diphenhydramine Hcl) 25 Mg Capsule 50 Mg PO PRN Q6HRS PRN Xanax (Alprazolam) 0.5 Mg Tablet 0.5 Mg PO PRN Q6HRS PRN Flomax (Tamsulosin Hcl) 0.4 Mg Cap.er.24h 0.4 Mg PO BID Next dose tonight 11/15 Simvastatin 20 Mg Tablet 30 Mg PO HS Next dose tonight 11/15 Pantoprazole Sodium (Pantoprazole Sodium) 40 Mg Tablet.dr 40 Mg PO BID Next dose tomorrow 11/16 Bupropion Xl (Bupropion Hcl) 150 Mg Tab.er.24h 150 Mg PO QAM Next dose tomorrow 11/16 Symbicort 160-4.5 Mcg Inhaler (Budesonide/Formoterol Fumarate) 10.2 Gm Hfa.aer.ad 2 Puff IH BID Ventolin Hfa Inhaler (Albuterol Sulfate) 18 Gm Hfa.aer.ad 2 Puff INH QID Allergies Allergies: Coded Allergies: regadenoson (Verified Allergy, Severe, Anaphylaxis, 06/07/19) Iodinated Contrast Media (Verified Allergy, Intermediate, 06/07/19) Nitrofuran Analogues (Verified Allergy, Intermediate, rash, 06/07/19) bumetanide (Verified Allergy, Intermediate, 11/11/19) CKD chlorothiazide (Verified Allergy, Intermediate, 11/11/19) CKD dutasteride (Verified Allergy, Intermediate, rash, 06/07/19) finasteride (Verified Allergy, Intermediate, hives, 06/07/19) furosemide (Verified Allergy, Intermediate, 11/11/19) CKD hydrochlorothiazide (Verified Allergy, Intermediate, 11/11/19) CKD spironolactone (Verified Allergy, Intermediate, 11/11/19) CKD NSAIDS (Non-Steroidal Anti-Inflamma (Verified Adverse Reaction, Intermediate, 06/07/19) CKD ROS Review of System 14 PT ROS OTHERWISE NEG General: No: Chills, Night Sweats, Fatigue, Malaise, Appetite, Other PSYCHOLOGICAL ROS: No: Anxiety, Behavioral Disorder, Concentration difficultie, Decreased libido, Depression, Disorientation, Hallucinations, Hostility, Irritablity, Memory difficulties, Mood Swings, Obsessive thoughts, Physical abuse, Sexual abuse, Sleep disturbances, Suicidal ideation, Other Eyes: No Blurry vision, No Decreased vision, No Double vision, No Dry eyes, No Excessive tearing, No Eye Pain, No Itchy Eyes, No Loss of vision, No Photophobia, No Scotomata, No Uses contacts, No Uses glasses, No Other HEENT: No: Heacaches, Visual Changes, Hearing change, Nasal congestion, Nasal discharge, Oral lesions, Sinus pain, Sore Throat, Epistaxis, Sneezing, Snoring, Tinnitus, Vertigo, Vocal changes, Other Hematological and Lymphatic: No: Bleeding Problems, Blood Clots, Blood Transfusions, Brusing, Night Sweats, Pallor, Swollen Lymph Nodes, Other Cardiovascular: yes Chest Pain; No Palpitations, No Orthopnea, No Paroxysmal Noc. Dyspnea, No Edema, No Lt Headedness, No Other Gastrointestinal: No Nausea, No Vomiting, No Abdominal Pain, No Diarrhea, No Constipation, No Melena, No Hematochezia, No Other Genitourinary: No Dysuria, No Frequency, No Incontinence, No Hematuria, No Retention, No Discharge, No Urgency, No Pain, No Flank Pain, No Other, No , No , No , No , No , No , No Musculoskeletal: No Gait Disturbance, No Joint Pain, No Joint Stiffness, No Joint Swelling, No Muscle Pain, No Muscular Weakness, No Pain In:, No Swelling In:, No Other Skin: No Dry Skin, No Eczema, No Hair Changes, No Lumps, No Mole Changes, No Mottling, No Nail Changes, No Pruritus, No Rash, No Skin Lesion Changes, No Other, No Acne Physical Exam Physical Exam GENERAL: Propped up in bed, alert, relaxed appearance HEENT: Pupils equally round, reactive. Normal conjunctivae. Oropharynx pink and moist. No lesions seen. NECK: Supple. LUNGS: Clear to auscultation. No accessory muscle use. HEART: S1 and S2. ABDOMEN: Obese, soft, less tender, diffuse. No guarding. EXTREMITIES: No gross edema or cyanosis. LUE-AV fistula unremarkable. SKIN: Warm to touch. Denies rash. NEUROLOGIC: Alert and answers questions appropriately. Right neck line is clean General: Alert, Oriented X3, Cooperative, No acute distress Heart: Other (AFIB RVR) Lungs: Clear Abdomen: Soft, No tenderness Extremities: No cyanosis, Other (1-2+ bilateral pedal edema) General: Alert, Oriented X3, Cooperative, No acute distress Lungs: Clear to auscultation Heart: RRR Abdomen: Normal bowel sounds, Soft Rectal Exam: not examined Extremities: No cyanosis Neuro: Normal speech, Strength at 5/5 X4 ext, Cranial nerves 3-12 NL Psych/Mental Status: Mental status NL, Mood NL Images Images TDI E/Lateral E' 9.5 E/Medial E' 12.4 Pulmonary Valve PV Peak Velocity 73.3cm/s PV Peak Grad. 2mmHg Tricuspid Valve TR P. Velocity 276cm/s TR Peak Gr. 31mmHg LEFT VENTRICLE The Left Ventricle is mildly dilated. There is mild concentric left ventricular hypertrophy. The systolic function is moderately impaired. The Ejection Fraction is estimated at 35%. There is moderate global hypokinesis. RIGHT VENTRICLE The right ventricle is normal size. There is normal right ventricular wall thickness. The right ventricular systolic function is normal. ATRIA The left atrium is mildly dilated. The right atrium is borderline dilated. The interatrial septum is intact with no evidence for an atrial septal defect or patent foramen ovale as noted on 2-D or Doppler imaging. AORTIC VALVE The aortic valve is thickened but opens well. Doppler and Color Flow revealed trace aortic regurgitation. There is no significant aortic valvular stenosis. Calculated aortic valve area is 2.78 cm2 with maximum pressure gradient of 11 mmHg and mean pressure gradient of 6 mmHg. MITRAL VALVE The mitral valve is mildly thickened. There is no evidence of mitral valve prolapse. There is no mitral valve stenosis with an mean gradient of 2.1 mmHg. Doppler and Color Flow revealed moderate mitral valve regurgitation. TRICUSPID VALVE The tricuspid valve is normal in structure and function. Doppler and Color Flow revealed trace to mild tricuspid regurgitation with an estimated PAP of 48 mmHg. There is no tricuspid valve stenosis. PULMONIC VALVE The pulmonic valve is not well visualized. Doppler and Color Flow revealed no pulmonic valvular regurgitation. GREAT VESSELS The aortic root is normal in size. The IVC is dilated. PERICARDIAL EFFUSION There is no evidence of significant pericardial effusion. Critical Notification Critical Value: No <Conclusion> The Left Ventricle is mildly dilated. The systolic function is moderately impaired. The Ejection Fraction is estimated at 35%. There is moderate global hypokinesis. There is mild concentric left ventricular hypertrophy. Doppler and Color Flow revealed trace aortic regurgitation. There is no significant aortic valvular stenosis. Doppler and Color Flow revealed moderate mitral valve regurgitation. Doppler and Color Flow revealed trace to mild tricuspid regurgitation with an estimated PAP of 48 mmHg. Signed by : Rishabh Bowers MD Electronically Approved : 11/16/2019 14:39:09 VTE Prophylaxis Ordered VTE Prophylaxis Devices: Yes VTE Pharmacological Prophylaxi: Yes Assessment/Plan Assessment/Plan impression acute NSTEMI chronic renal failure anemia, azotemia. 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 Small nodule along the fissure on the right, Fleischner Society guidelines recommend an optional one-year follow-up for I risk individuals. Granulomatous ossifications. Sclerotic or possibly blastic lesion T7 correlation with any history of prostate cancer would be of benefit. recent PET scan No suspicious uptake at the T7 sclerotic lesion. This finding may possibly represent a bone island. No other suspicious sclerotic lesions. MRI of the thoracic spine without and with contrast may be performed for more de finitive assessment if desired. Tracer uptake in the spine is heterogeneous. No definite increased tracer uptake localizes to the T7 vertebral body. Suggest correlation withPSA. ECHO 03/14The left ventricular systolic function is low normal. The ejection fraction is estimated at 50% mild to moderate mitral regurgitatio mild to moderate tricuspid regurgitation. PA pressure was estimated at 44 mmHg. C/W MOD PULM HTN 11/16 ECHO Ejection Fraction is estimated at 35%.moderate global hypokinesis.moderate mitral valve regurgitation.tricuspid regurgitation with an estimated PAP of 48 mmHg. apnea-hypopnea syndrome. PLAN ADMIT CVC trend troponin i Consult cardiology heparin per cardiology Consult Nephrology for dialysis management. Full code. P.r.n. Tylenol, p.r.n. Zofran, home meds, DVT prophylaxis on heparin drip . Justifications for Admission Other Justification TANVIR CARRASCO MD Nov 26, 2019 10:34
[2019-11-26] MEDS ORDERED: MORPHINE SULFATE 2 MG/ML VIAL. IV PRN (10:45)
[2019-11-26] MEDS ORDERED: HEPARIN 25,000UTS/250ML PREMIX 250 ML IV PRN (10:45)
[2019-11-26] MEDS ORDERED: HEPARIN for IV BOLUS 10,000 UNIT/10 ML VIAL. IV PRN (10:45)
[2019-11-26] MEDS ORDERED: AMLO5TAB10 PO (10:50)
[2019-11-26 11:00] VITALS: BP 153/85
[2019-11-26] MEDS ORDERED: guaiFENesin ORAL 200 MG/10 ML LIQUID. PO PRN (11:45)
[2019-11-26] MEDS ORDERED: ALBUTEROL SULFATE 2.5 MG/3 ML NEBU. NEB PRN (11:45)
[2019-11-26] MEDS ORDERED: LORazepam 0.5 MG TABLET PO PRN (11:45)
[2019-11-26] MEDS ORDERED: 0.9 % SODIUM CHLORIDE 10 ML DISP.SYRIN. IV PRN (11:45)
[2019-11-26] MEDS ORDERED: ACETAMINOPHEN 325 MG TABLET. PO PRN (11:45)
[2019-11-26] MEDS ORDERED: DOCUSATE SODIUM 100 MG CAPSULE. PO PRN (11:45)
[2019-11-26] MEDS ORDERED: ONDANSETRON PF 4 MG/2 ML VIAL. IV PRN (11:45)
[2019-11-26] MEDS ORDERED: HYDROcodone/APAP 5/325MG 1 TAB TABLET PO PRN (12:00)
[2019-11-26] MEDS ORDERED: diphenhydrAMINE HCL 25 MG CAPSULE PO PRN (12:00)
[2019-11-26 12:14] LABS: HEMATOCRIT 27.7 % (39.0-53.0); HEMOGLOBIN 9.1 g/dL (13.0-17.5); RED BLOOD COUNT 2.82 x10^6/uL (4.30-5.70); RED CELL DISTRIBUTION WIDTH 15.4 % (11.5-14.5); WHITE BLOOD COUNT 4.2 x10^3/uL (4.0-11.0)
[2019-11-26 12:37] LABS: PROTHROMBIN TIME PATIENT 14.8 SEC (11.7-14.0)
[2019-11-26 12:37] LABS: ALBUMIN 2.2 g/dL (3.4-5.0); ALBUMIN/GLOBULIN RATIO 0.7 (1.0-1.7); CALCIUM 7.4 mg/dL (8.5-10.1); CREATININE 4.2 mg/dL (0.7-1.3); GFR 13.8; POTASSIUM 4.4 mmol/L (3.5-5.1); TOTAL BILIRUBIN 0.5 mg/dL (0.2-1.0); TOTAL PROTEIN 5.3 g/dL (6.4-8.2)
--- NOTE | 2019-11-26 12:42 | RAD ---
EXAM: CHEST 1 VIEW History: Central line placement COMPARISON: 11/10/2019 TECHNIQUE: Single portable radiograph of the chest FINDINGS: Mild cardiomegaly. Right internal jugular line. Moderate prominent bilateral interstitial lung markings likely congestive changes. Bibasilar lung airspace opacities likely atelectasis or infiltrates with the small bilateral pleural effusions. IMPRESSION: 1. Moderate congestive changes with small bilateral pleural effusions. 2. Right-sided internal jugular line in place. Electronically signed by: Augustine Patino MD (11/26/2019 12:39 PM) [id number]
--- NOTE | 2019-11-26 12:49 | PDOC2 ---
CONSULT Date of Consult Date of Consult DATE: 11/26/19 TIME: 12:46 Reason for Consult Reason for Consult: ESRD Referring Physician Referring Physician: TYREE Identification/Chief Complaint Chief Complaint CHEST PAIN Source Source: Chart review, Patient History of Present Illness Reason for Visit: THIS IS A 79 YR OLD ESRD PT ON HD TTS WITH CHEST PAIN. CURRENTLY UNDERGOING CARDIOLOGY EVALUATION. HAS LEFT FA [facility] AVF FOR HIS HD. LABS ARE C/W ESRD. ESRD DUE TO HTN Past Medical History Cardiovascular: AFIB, CHF, HTN, Hyperlipidemia, Other Pulmonary: COPD CENTRAL NERVOUS SYSTEM: Other GI: GERD Heme/Onc: Anemia NOS Hepatobiliary: No pertinent hx Psych: Anxiety Musculoskeletal: Osteoarthritis Renal/: Chronic renal failure, UTI, Prostate Ca. Endocrine: Hyperparathyroidism Past Surgical History Past Surgical History LEFT ARM AVF Past Surgical History: Hernia Repair Family History Family History: Coronary Artery Disease, Hypertension Social History No ALCOHOL: none Drugs: None Lives: with Family Current Medications Current Medications Current Medications Morphine Sulfate (Morphine Sulfate) 2 mg PRN Q2HR PRN IV PAIN; Start 11/26/19 at 10:45 Heparin Sodium/ Dextrose 250 ml @ 9.396 mls/ hr CONT PRN IV PER PROTOCOL Last administered on 11/26/19at 12:42; Start 11/26/19 at 10:45 Heparin Sodium (Porcine) (Heparin Sodium) 1,950 unit PRN Q6HRS PRN IV FOR UFH LEVEL LESS THAN 0.2; Start 11/26/19 at 10:45 Sodium Chloride (Normal Saline Flush) 3 ml QSHIFT PRN IV AFTER MEDS AND BLOOD DRAWS; Start 11/26/19 at 11:45 Ondansetron HCl (Zofran) 4 mg PRN Q4HRS PRN IV NAUSEA/VOMITING; Start 11/26/19 at 11:45 Acetaminophen (Tylenol) 650 mg PRN Q4HRS PRN PO TEMP OVER 100.4F OR MILD PAIN; Start 11/26/19 at 11:45 Docusate Sodium (Colace) 100 mg PRN BID PRN PO HARD STOOLS; Start 11/26/19 at 11:45 Albuterol Sulfate (Ventolin Neb Soln) 2.5 mg PRN Q4HRS PRN NEB SHORTNESS OF BREATH; Start 11/26/19 at 11:45 Guaifenesin (Robitussin) 200 mg PRN Q4HRS PRN PO COUGH; Start 11/26/19 at 11:45 Lorazepam (Ativan) 0.5 mg PRN Q4HRS PRN PO ANXIETY / AGITATION; Start 11/26/19 at 11:45 Alprazolam (Xanax) 0.5 mg PRN Q6HRS PRN PO ANXIETY / AGITATION; Start 11/26/19 at 12:00 Amlodipine Besylate (Norvasc) 5 mg BID PO ; Start 11/26/19 at 21:00 Bupropion HCl (Wellbutrin Xl) 150 mg QAM PO ; Start 11/27/19 at 09:00 Diphenhydramine HCl (Benadryl) 50 mg PRN Q6HRS PRN PO itching; Start 11/26/19 at 12:00 Vitamin B Complex/ Vitamin C (Mandi-Debbie) 1 tab DAILY PO ; Start 11/27/19 at 09:00 Acetaminophen/ Hydrocodone Bitart (Lortab 5/325) 1 tab PRN Q8HRS PRN PO PAIN; Start 11/26/19 at 12:00 Isosorbide Mononitrate (Imdur) 30 mg BID PO ; Start 11/26/19 at 21:00 Lactobacillus Rhamnosus (Culturelle) 1 cap BID PO ; Start 11/26/19 at 21:00 Losartan Potassium (Cozaar) 25 mg DAILY PO ; Start 11/27/19 at 09:00 Metoprolol Tartrate (Lopressor) 50 mg BID PO ; Start 11/26/19 at 21:00 Pantoprazole Sodium (Protonix) 40 mg BIDWMEALS PO ; Start 11/26/19 at 17:00 Simvastatin (Zocor) 30 mg HS PO ; Start 11/26/19 at 21:00 Sucralfate (Carafate) 1 gm QIDACHS PO ; Start 11/26/19 at 16:30 Tamsulosin HCl (Flomax) 0.4 mg BID PO ; Start 11/26/19 at 21:00 Albuterol Sulfate (Ventolin Neb Soln) 2.5 mg RTQID NEB ; Start 11/26/19 at 16:00 Vitamin D (Vitamin D3) 2,000 unit DAILY PO ; Start 11/27/19 at 09:00 Fish Oil (Fish Oil) 1,000 mg BID PO ; Start 11/26/19 at 21:00 Budesonide (Pulmicort) 0.5 mg RTBID NEB ; Start 11/26/19 at 20:00 Active Scripts Active Culturelle (Lactobacillus Rhamnosus Gg) 1 Each Cap.sprink 1 Cap PO BID 30 Days Metoprolol Tartrate 50 Mg Tablet 50 Mg PO BID 90 Days Merrem (Meropenem) 500 Mg Vial 500 Mg IV QHS 7 Days [place] 5-325 Tablet (Acetaminophen/Hydrocodone Bitart) 1 Each Tablet 1 Tab PO Q6- 8HRS PRN 6 Days Reported Amlodipine Besylate 5 Mg Tablet 5 Mg PO BID Losartan Potassium 25 Mg Tablet 25 Mg PO DAILY Do not take prior to going to dialysis Fish Oil 1,000 mg Softgel ([place]-3/Dha/Epa/Fish Oil) 1,000 Mg Capsule 1,000 Mg PO DAILY Next dose tomorrow 11/16 Sucralfate 1 Gm Tablet 1 Gm PO QID Next dose tonight 11/15 Vitamin D3 (Cholecalciferol (Vitamin D3)) 10 Mcg Tablet 2,000 Units PO DAILY Next dose tomorrow 11/16 Mandi-Debbie Tablet (Folic Acid/Vitamin B Comp W-C) 0.8 Mg Tablet 0.8 Mg PO DAILY Next dose tomorrow 11/16 Isosorbide Mononitrate Er (Isosorbide Mononitrate) 30 Mg Tab.er.24h 30 Mg PO BID Next dose tonight 11/15 Eliquis (Apixaban) 2.5 Mg Tablet 2.5 Mg PO BID Next dose tonight 11/15 Benadryl (Diphenhydramine Hcl) 25 Mg Capsule 50 Mg PO PRN Q6HRS PRN Xanax (Alprazolam) 0.5 Mg Tablet 0.5 Mg PO PRN Q6HRS PRN Flomax (Tamsulosin Hcl) 0.4 Mg Cap.er.24h 0.4 Mg PO BID Next dose tonight 11/15 Simvastatin 20 Mg Tablet 30 Mg PO HS Next dose tonight 11/15 Pantoprazole Sodium (Pantoprazole Sodium) 40 Mg Tablet.dr 40 Mg PO BID Next dose tomorrow 11/16 Bupropion Xl (Bupropion Hcl) 150 Mg Tab.er.24h 150 Mg PO QAM Next dose tomorrow 11/16 Symbicort 160-4.5 Mcg Inhaler (Budesonide/Formoterol Fumarate) 10.2 Gm Hfa.aer.ad 2 Puff IH BID Ventolin Hfa Inhaler (Albuterol Sulfate) 18 Gm Hfa.aer.ad 2 Puff INH QID Allergies Allergies: Coded Allergies: regadenoson (Verified Allergy, Severe, Anaphylaxis, 06/07/19) Iodinated Contrast Media (Verified Allergy, Intermediate, 06/07/19) Nitrofuran Analogues (Verified Allergy, Intermediate, rash, 06/07/19) bumetanide (Verified Allergy, Intermediate, 11/11/19) CKD chlorothiazide (Verified Allergy, Intermediate, 11/11/19) CKD dutasteride (Verified Allergy, Intermediate, rash, 06/07/19) finasteride (Verified Allergy, Intermediate, hives, 06/07/19) furosemide (Verified Allergy, Intermediate, 11/11/19) CKD hydrochlorothiazide (Verified Allergy, Intermediate, 11/11/19) CKD spironolactone (Verified Allergy, Intermediate, 11/11/19) CKD NSAIDS (Non-Steroidal Anti-Inflamma (Verified Adverse Reaction, Intermediate, 06/07/19) CKD ROS General: YES: Fatigue PSYCHOLOGICAL ROS: YES: Depression Eyes: Yes Decreased vision HEENT: YES: [place] ALLERGY AND IMMUNOLOGY: YES: Seasonal Allergies Respiratory: YES: Cough Cardiovascular: yes Chest Pain Gastrointestinal: Yes Nausea Musculoskeletal: Yes Joint Stiffness Neurological: Yes Weakness Skin: Yes Dry Skin Physical Exam General: Alert, Oriented X3, Cooperative, No acute distress HEENT: Atraumatic, PERRLA Lungs: Clear to auscultation Heart: Regular rate Abdomen: Normal bowel sounds Extremities: No clubbing Skin: No rashes, No breakdown Neuro: Normal speech Psych/Mental Status: Mood NL MUSCULOSKELETAL: No joint tenderness, No deformity, Other (LEFT FA AVF WITH A GOOD THRILL AND BRUIT) Vitals VITALS Vital Signs Date Time Temp Pulse Resp B/P (MAP) Pulse Ox O2 Delivery O2 Flow Rate FiO2 11/26/19 11:00 97.7 80 18 153/85 (107) 92 Room Air 97.7 Labs Labs Laboratory Tests Test 11/26/19 11:45 11/26/19 12:00 Sodium Level 141 mmol/L (136-145) Potassium Level 4.4 mmol/L (3.5-5.1) Chloride Level 103 mmol/L (98-107) Carbon Dioxide Level 31 mmol/L (21-32) Anion Gap 7 (6-14) Blood Urea Nitrogen 35 mg/dL (8-26) Creatinine 4.2 mg/dL (0.7-1.3) Estimated GFR (Cockcroft-Gault) 13.8 BUN/Creatinine Ratio 8 (6-20) Glucose Level 79 mg/dL (70-99) Calcium Level 7.4 mg/dL (8.5-10.1) Total Bilirubin 0.5 mg/dL (0.2-1.0) Aspartate Amino Transf (AST/SGOT) 40 U/L (15-37) Alanine Aminotransferase (ALT/SGPT) 30 U/L (16-63) Alkaline Phosphatase 98 U/L (46-116) Total Protein 5.3 g/dL (6.4-8.2) Albumin 2.2 g/dL (3.4-5.0) Albumin/Globulin Ratio 0.7 (1.0-1.7) White Blood Count 4.2 x10^3/uL (4.0-11.0) Red Blood Count 2.82 x10^6/uL (4.30-5.70) Hemoglobin 9.1 g/dL (13.0-17.5) Hematocrit 27.7 % (39.0-53.0) Mean Corpuscular Volume 98 fL (79-100) Mean Corpuscular Hemoglobin 32 pg (25-35) Mean Corpuscular Hemoglobin Concent 33 g/dL (31-37) Red Cell Distribution Width 15.4 % (11.5-14.5) Platelet Count 215 x10^3/uL (140-400) Laboratory Tests Test 11/26/19 11:45 11/26/19 12:00 Sodium Level 141 mmol/L (136-145) Potassium Level 4.4 mmol/L (3.5-5.1) Chloride Level 103 mmol/L (98-107) Carbon Dioxide Level 31 mmol/L (21-32) Anion Gap 7 (6-14) Blood Urea Nitrogen 35 mg/dL (8-26) Creatinine 4.2 mg/dL (0.7-1.3) Estimated GFR (Cockcroft-Gault) 13.8 BUN/Creatinine Ratio 8 (6-20) Glucose Level 79 mg/dL (70-99) Calcium Level 7.4 mg/dL (8.5-10.1) Total Bilirubin 0.5 mg/dL (0.2-1.0) Aspartate Amino Transf (AST/SGOT) 40 U/L (15-37) Alanine Aminotransferase (ALT/SGPT) 30 U/L (16-63) Alkaline Phosphatase 98 U/L (46-116) Total Protein 5.3 g/dL (6.4-8.2) Albumin 2.2 g/dL (3.4-5.0) Albumin/Globulin Ratio 0.7 (1.0-1.7) White Blood Count 4.2 x10^3/uL (4.0-11.0) Red Blood Count 2.82 x10^6/uL (4.30-5.70) Hemoglobin 9.1 g/dL (13.0-17.5) Hematocrit 27.7 % (39.0-53.0) Mean Corpuscular Volume 98 fL (79-100) Mean Corpuscular Hemoglobin 32 pg (25-35) Mean Corpuscular Hemoglobin Concent 33 g/dL (31-37) Red Cell Distribution Width 15.4 % (11.5-14.5) Platelet Count 215 x10^3/uL (140-400) Assessment/Plan Assessment/Plan IMP CHEST PAIN HX HTN ANEMIA ESRD PLAN HD TODAY [facility]F TO [facility] FRANKIE ASCENCIO MD Nov 26, 2019 12:49
[2019-11-26] MEDS ORDERED: IV NORMAL SALINE 1000ML BAG 1,000 ML IV PRN ×2 (13:17)
[2019-11-26] MEDS ORDERED: DIALYSIS PATIENT. MC PRN ×2 (13:30)
[2019-11-26] MEDS ORDERED: ALBUMIN HUMAN 25% 200 ML IV PRN (13:30)
[2019-11-26] MEDS ORDERED: LIDOCAINE 1% PF 2 ML VIAL. ID ONE (14:00)
--- NOTE | 2019-11-26 15:05 | PDOC2 ---
CONSULT Date of Consult Date of Consult DATE: 11/26/19 TIME: 15:01 Reason for Consult Reason for Consult: Chest pain Referring Physician Referring Physician: Dr. Parmar Identification/Chief Complaint Chief Complaint Chest pain Source Source: Chart review, Patient History of Present Illness Reason for Visit: The patient is a 79-year-old male with a history of atrial fibrillation, heart failure as well as hypertension who reported episodes of chest pain and was admitted to the ER at [facility]. He had no acute ischemic EKG changes but did have a minimally elevated troponin level. He was therefore placed on heparin and transferred to [place]. On examination at this time the patient is comfortable. He denies any chest pain or shortness of breath. Further work-up showed the echocardiogram approximately a month ago with a decreased ejection fraction of 35%. He also has a creatinine of 4.2 and is being evaluated by the renal service. Past Medical History Cardiovascular: AFIB, CHF, HTN, Hyperlipidemia, Other Pulmonary: COPD CENTRAL NERVOUS SYSTEM: Other GI: GERD Heme/Onc: Anemia NOS Hepatobiliary: No pertinent hx Psych: Anxiety Musculoskeletal: Osteoarthritis Renal/: Chronic renal failure, UTI, Prostate Ca. Endocrine: Hyperparathyroidism Past Surgical History Past Surgical History: Hernia Repair Family History Family History: Coronary Artery Disease, Hypertension Social History No ALCOHOL: none Drugs: None Lives: with Family Current Medications Current Medications Current Medications Morphine Sulfate (Morphine Sulfate) 2 mg PRN Q2HR PRN IV PAIN; Start 11/26/19 at 10:45 Heparin Sodium/ Dextrose 250 ml @ 9.396 mls/ hr CONT PRN IV PER PROTOCOL Last administered on 11/26/19at 12:42; Start 11/26/19 at 10:45 Heparin Sodium (Porcine) (Heparin Sodium) 1,950 unit PRN Q6HRS PRN IV FOR UFH LEVEL LESS THAN 0.2; Start 11/26/19 at 10:45 Sodium Chloride (Normal Saline Flush) 3 ml QSHIFT PRN IV AFTER MEDS AND BLOOD DRAWS; Start 11/26/19 at 11:45 Ondansetron HCl (Zofran) 4 mg PRN Q4HRS PRN IV NAUSEA/VOMITING; Start 11/26/19 at 11:45 Acetaminophen (Tylenol) 650 mg PRN Q4HRS PRN PO TEMP OVER 100.4F OR MILD PAIN; Start 11/26/19 at 11:45 Docusate Sodium (Colace) 100 mg PRN BID PRN PO HARD STOOLS; Start 11/26/19 at 11:45 Albuterol Sulfate (Ventolin Neb Soln) 2.5 mg PRN Q4HRS PRN NEB SHORTNESS OF BREATH; Start 11/26/19 at 11:45 Guaifenesin (Robitussin) 200 mg PRN Q4HRS PRN PO COUGH; Start 11/26/19 at 11:45 Lorazepam (Ativan) 0.5 mg PRN Q4HRS PRN PO ANXIETY / AGITATION; Start 11/26/19 at 11:45 Alprazolam (Xanax) 0.5 mg PRN Q6HRS PRN PO ANXIETY / AGITATION; Start 11/26/19 at 12:00 Amlodipine Besylate (Norvasc) 5 mg BID PO ; Start 11/26/19 at 21:00 Bupropion HCl (Wellbutrin Xl) 150 mg QAM PO ; Start 11/27/19 at 09:00 Diphenhydramine HCl (Benadryl) 50 mg PRN Q6HRS PRN PO itching; Start 11/26/19 at 12:00 Vitamin B Complex/ Vitamin C (Mandi-Debbie) 1 tab DAILY PO ; Start 11/27/19 at 09:00 Acetaminophen/ Hydrocodone Bitart (Lortab 5/325) 1 tab PRN Q8HRS PRN PO PAIN; Start 11/26/19 at 12:00 Isosorbide Mononitrate (Imdur) 30 mg BID PO ; Start 11/26/19 at 21:00 Lactobacillus Rhamnosus (Culturelle) 1 cap BID PO ; Start 11/26/19 at 21:00 Losartan Potassium (Cozaar) 25 mg DAILY PO ; Start 11/27/19 at 09:00 Metoprolol Tartrate (Lopressor) 50 mg BID PO ; Start 11/26/19 at 21:00 Pantoprazole Sodium (Protonix) 40 mg BIDWMEALS PO ; Start 11/26/19 at 17:00 Simvastatin (Zocor) 30 mg HS PO ; Start 11/26/19 at 21:00 Sucralfate (Carafate) 1 gm QIDACHS PO ; Start 11/26/19 at 16:30 Tamsulosin HCl (Flomax) 0.4 mg BID PO ; Start 11/26/19 at 21:00 Albuterol Sulfate (Ventolin Neb Soln) 2.5 mg RTQID NEB ; Start 11/26/19 at 16:00 Vitamin D (Vitamin D3) 2,000 unit DAILY PO ; Start 11/27/19 at 09:00 Fish Oil (Fish Oil) 1,000 mg BID PO ; Start 11/26/19 at 21:00 Budesonide (Pulmicort) 0.5 mg RTBID NEB ; Start 11/26/19 at 20:00 Sodium Chloride 1,000 ml @ 1,000 mls/hr Q1H PRN IV hypotension; Start 11/26/19 at 13:17; Stop 11/26/19 at 19:16 Albumin Human 200 ml @ 200 mls/hr 1X PRN PRN IV Hypotension; Start 11/26/19 at 13:30; Stop 11/26/19 at 19:29 Sodium Chloride 1,000 ml @ 400 mls/hr Q2H30M PRN IV PATENCY; Start 11/26/19 at 13:17; Stop 11/27/19 at 01:16 Info (PHARMACY MONITORING -- do not chart) 1 each PRN DAILY PRN MC SEE COMMENTS; Start 11/26/19 at 13:30 Info (PHARMACY MONITORING -- do not chart) 1 each PRN DAILY PRN MC SEE COMMENTS; Start 11/26/19 at 13:30 Lidocaine HCl (Xylocaine-Mpf 1% 2ml Vial) 2 ml 1X ONCE ID Last administered on 11/26/19at 14:09; Start 11/26/19 at 14:00; Stop 11/26/19 at 14:01; Status DC Active Scripts Active Culturelle (Lactobacillus Rhamnosus Gg) 1 Each Cap.sprink 1 Cap PO BID 30 Days Metoprolol Tartrate 50 Mg Tablet 50 Mg PO BID 90 Days Merrem (Meropenem) 500 Mg Vial 500 Mg IV QHS 7 Days [place] 5-325 Tablet (Acetaminophen/Hydrocodone Bitart) 1 Each Tablet 1 Tab PO Q6- 8HRS PRN 6 Days Reported Amlodipine Besylate 5 Mg Tablet 5 Mg PO BID Losartan Potassium 25 Mg Tablet 25 Mg PO DAILY Do not take prior to going to dialysis Fish Oil 1,000 mg Softgel ([place]-3/Dha/Epa/Fish Oil) 1,000 Mg Capsule 1,000 Mg PO DAILY Next dose tomorrow 11/16 Sucralfate 1 Gm Tablet 1 Gm PO QID Next dose ton11/15 Vitamin D3 (Cholecalciferol (Vitamin D3)) 10 Mcg Tablet 2,000 Units PO DAILY Next dose tomorrow 11/16 Mandi-Debbie Tablet (Folic Acid/Vitamin B Comp W-C) 0.8 Mg Tablet 0.8 Mg PO DAILY Next dose tomorrow 11/16 Isosorbide Mononitrate Er (Isosorbide Mononitrate) 30 Mg Tab.er.24h 30 Mg PO BID Next dose ton11/15 Eliquis (Apixaban) 2.5 Mg Tablet 2.5 Mg PO BID Next dose 11/15 Benadryl (Diphenhydramine Hcl) 25 Mg Capsule 50 Mg PO PRN Q6HRS PRN Xanax (Alprazolam) 0.5 Mg Tablet 0.5 Mg PO PRN Q6HRS PRN Flomax (Tamsulosin Hcl) 0.4 Mg Cap.er.24h 0.4 Mg PO BID Next dose 11/15 Simvastatin 20 Mg Tablet 30 Mg PO HS Next dose ton11/15 Pantoprazole Sodium (Pantoprazole Sodium) 40 Mg Tablet.dr 40 Mg PO BID Next dose tomorrow 11/16 Bupropion Xl (Bupropion Hcl) 150 Mg Tab.er.24h 150 Mg PO QAM Next dose tomorrow 11/16 Symbicort 160-4.5 Mcg Inhaler (Budesonide/Formoterol Fumarate) 10.2 Gm Hfa.aer.ad 2 Puff IH BID Ventolin Hfa Inhaler (Albuterol Sulfate) 18 Gm Hfa.aer.ad 2 Puff INH QID Allergies Allergies: Coded Allergies: regadenoson (Verified Allergy, Severe, Anaphylaxis, 06/07/19) Iodinated Contrast Media (Verified Allergy, Intermediate, 06/07/19) Nitrofuran Analogues (Verified Allergy, Intermediate, rash, 06/07/19) bumetanide (Verified Allergy, Intermediate, 11/11/19) CKD chlorothiazide (Verified Allergy, Intermediate, 11/11/19) CKD dutasteride (Verified Allergy, Intermediate, rash, 06/07/19) finasteride (Verified Allergy, Intermediate, hives, 06/07/19) furosemide (Verified Allergy, Intermediate, 11/11/19) CKD hydrochlorothiazide (Verified Allergy, Intermediate, 11/11/19) CKD spironolactone (Verified Allergy, Intermediate, 11/11/19) CKD NSAIDS (Non-Steroidal Anti-Inflamma (Verified Adverse Reaction, Intermediate, 06/07/19) CKD ROS General: YES: Fatigue Cardiovascular: yes Chest Pain Physical Exam General: No acute distress HEENT: Atraumatic Lungs: Clear to auscultation Heart: Regular rate Abdomen: Normal bowel sounds Vitals VITALS Vital Signs Date Time Temp Pulse Resp B/P (MAP) Pulse Ox O2 Delivery O2 Flow Rate FiO2 11/26/19 11:00 97.7 80 18 153/85 (107) 92 Room Air 97.7 Labs Labs Laboratory Tests Test 11/26/19 11:45 11/26/19 12:00 Sodium Level 141 mmol/L (136-145) Potassium Level 4.4 mmol/L (3.5-5.1) Chloride Level 103 mmol/L (98-107) Carbon Dioxide Level 31 mmol/L (21-32) Anion Gap 7 (6-14) Blood Urea Nitrogen 35 mg/dL (8-26) Creatinine 4.2 mg/dL (0.7-1.3) Estimated GFR (Cockcroft-Gault) 13.8 BUN/Creatinine Ratio 8 (6-20) Glucose Level 79 mg/dL (70-99) Calcium Level 7.4 mg/dL (8.5-10.1) Total Bilirubin 0.5 mg/dL (0.2-1.0) Aspartate Amino Transf (AST/SGOT) 40 U/L (15-37) Alanine Aminotransferase (ALT/SGPT) 30 U/L (16-63) Alkaline Phosphatase 98 U/L (46-116) Total Protein 5.3 g/dL (6.4-8.2) Albumin 2.2 g/dL (3.4-5.0) Albumin/Globulin Ratio 0.7 (1.0-1.7) White Blood Count 4.2 x10^3/uL (4.0-11.0) Red Blood Count 2.82 x10^6/uL (4.30-5.70) Hemoglobin 9.1 g/dL (13.0-17.5) Hematocrit 27.7 % (39.0-53.0) Mean Corpuscular Volume 98 fL (79-100) Mean Corpuscular Hemoglobin 32 pg (25-35) Mean Corpuscular Hemoglobin Concent 33 g/dL (31-37) Red Cell Distribution Width 15.4 % (11.5-14.5) Platelet Count 215 x10^3/uL (140-400) Prothrombin Time 14.8 SEC (11.7-14.0) Prothromb Time International Ratio 1.2 (0.8-1.1) Activated Partial Thromboplast Time 36 SEC (24-38) Heparin Anti-Xa Act, Unfractionated 0.70 IU/mL (0.30-0.70) Troponin I Quantitative 6.522 ng/mL (0.000-0.055) Laboratory Tests Test 11/26/19 11:45 11/26/19 12:00 Sodium Level 141 mmol/L (136-145) Potassium Level 4.4 mmol/L (3.5-5.1) Chloride Level 103 mmol/L (98-107) Carbon Dioxide Level 31 mmol/L (21-32) Anion Gap 7 (6-14) Blood Urea Nitrogen 35 mg/dL (8-26) Creatinine 4.2 mg/dL (0.7-1.3) Estimated GFR (Cockcroft-Gault) 13.8 BUN/Creatinine Ratio 8 (6-20) Glucose Level 79 mg/dL (70-99) Calcium Level 7.4 mg/dL (8.5-10.1) Total Bilirubin 0.5 mg/dL (0.2-1.0) Aspartate Amino Transf (AST/SGOT) 40 U/L (15-37) Alanine Aminotransferase (ALT/SGPT) 30 U/L (16-63) Alkaline Phosphatase 98 U/L (46-116) Total Protein 5.3 g/dL (6.4-8.2) Albumin 2.2 g/dL (3.4-5.0) Albumin/Globulin Ratio 0.7 (1.0-1.7) White Blood Count 4.2 x10^3/uL (4.0-11.0) Red Blood Count 2.82 x10^6/uL (4.30-5.70) Hemoglobin 9.1 g/dL (13.0-17.5) Hematocrit 27.7 % (39.0-53.0) Mean Corpuscular Volume 98 fL (79-100) Mean Corpuscular Hemoglobin 32 pg (25-35) Mean Corpuscular Hemoglobin Concent 33 g/dL (31-37) Red Cell Distribution Width 15.4 % (11.5-14.5) Platelet Count 215 x10^3/uL (140-400) Prothrombin Time 14.8 SEC (11.7-14.0) Prothromb Time International Ratio 1.2 (0.8-1.1) Activated Partial Thromboplast Time 36 SEC (24-38) Heparin Anti-Xa Act, Unfractionated 0.70 IU/mL (0.30-0.70) Troponin I Quantitative 6.522 ng/mL (0.000-0.055) Assessment/Plan Assessment/Plan 1. Chest pain. Probable non-ST elevated myocardial infarction. Started on heparin and is now pain-free. Will continue on heparin. Will rule out for myocardial infarction. Probable ischemic testing including possible catheterization based on clinical course. 2. Chronic kidney disease. Nonprogressive. Has been evaluated by the renal service. Probable hemodialysis. 3. Atrial fibrillation. Rate controlled. 4. Hypertension. Now under better control. We will continue to monitor. 5. Cardiomyopathy. Ejection fraction of 35%. Continue to monitor fluid status. 6. Hyperlipidemia. Will check lab. Thank you for allowing us to participate in the care of your patient. SANDRA JOHNSTON MD Nov 26, 2019 15:05
[2019-11-26] MEDS: ALBUTEROL SULFATE 2.5 MG/3 ML NEBU. NEB SCH ×2 (16:45→20:37)
[2019-11-26] MEDS: SUCRALFATE 1 GM TABLET. PO SCH ×2 (17:48→20:44)
[2019-11-26] MEDS: PANTOPRAZOLE 40 MG TABLET.DR. PO SCH (17:48)
[2019-11-26] MEDS: ALPRAZolam 0.5 MG TABLET PO PRN (19:05)
--- NOTE | 2019-11-26 19:15 | NUR ---
Very anxious and restless. Stating he is just going to unhook his IV and go home. Reports history of anxiety and claustrophobia. Gave Xanax as ordered prn anxiety.
[2019-11-26 19:50] VITALS: BP 178/57
[2019-11-26] MEDS: BUDESONIDE 0.5 MG/2 ML NEBU. NEB SCH (20:37)
[2019-11-26] MEDS: ISOSORBIDE MONONITRATE ER 30 MG TAB.ER.24H PO SCH (20:44)
[2019-11-26] MEDS: TAMSULOSIN 0.4 MG CAP.ER.24H. PO SCH (20:44)
[2019-11-26] MEDS: OMEGA-3 FATTY ACIDS/FISH OIL 1,000 MG CAPSULE. PO SCH (20:44)
[2019-11-26] MEDS: LACTOBACILLUS RHAMNOSUS GG 1 CAPSULE. PO SCH (20:44)
[2019-11-26] MEDS: SIMVASTATIN 20 MG TABLET PO SCH (20:45)
[2019-11-26] MEDS: amLODIPine BESYLATE 5 MG TABLET PO SCH (20:45)
[2019-11-26] MEDS: METOPROLOL TART IMMED RELEASE 50 MG TABLET. PO SCH (20:45)
--- NOTE | 2019-11-26 21:30 | NUR ---
Reports Xanax helped with anxiety. Resting in recliner at bedside. Call light at hand.
[2019-11-26 23:34] VITALS: BP 173/77
[2019-11-27] MEDS: ALPRAZolam 0.5 MG TABLET PO PRN (00:42)
[2019-11-27 04:20] VITALS: BP 169/76
[2019-11-27 05:36] LABS: CALCIUM 7.5 mg/dL (8.5-10.1); CREATININE 3.3 mg/dL (0.7-1.3); GFR 18.3; MAGNESIUM 1.9 mg/dL (1.8-2.4); POTASSIUM 3.9 mmol/L (3.5-5.1)
[2019-11-27 05:41] LABS: BASO % 1 % (0-3); EOS # 0.2 x10^3/uL (0.0-0.7); EOS % 4 % (0-3); HEMATOCRIT 25.3 % (39.0-53.0); HEMOGLOBIN 8.6 g/dL (13.0-17.5); LYMPH % 24 % (24-48); MEAN CORPUSCULAR HEMOGLOBIN 33 pg (25-35); MEAN CORPUSCULAR HGB CONC 34 g/dL (31-37); MEAN CORPUSCULAR VOLUME 98 fL (79-100); MONO # 0.5 x10^3/uL (0.0-1.1); MONO % 13 % (0-9); NEUT # 2.3 x10^3/uL (1.8-7.7); NEUT % 58 % (31-73); PLATELET COUNT 203 x10^3/uL (140-400); RED CELL DISTRIBUTION WIDTH 15.1 % (11.5-14.5)
[2019-11-27 07:00] VITALS: BP 163/50
[2019-11-27] MEDS ORDERED: ANTI-COAG MONITOR BY PHARMACY. MC PRN (07:45)
[2019-11-27] MEDS: ALBUTEROL SULFATE 2.5 MG/3 ML NEBU. NEB SCH ×4 (07:51→20:30)
[2019-11-27] MEDS: BUDESONIDE 0.5 MG/2 ML NEBU. NEB SCH ×2 (07:51→20:30)
[2019-11-27] MEDS: buPROPion XL 150 MG TAB.ER.24H. PO SCH (08:42)
[2019-11-27] MEDS: CHOLECALCIFEROL (VITAMIN D3) 1,000 UNIT TABLET PO SCH (08:43)
[2019-11-27] MEDS: amLODIPine BESYLATE 5 MG TABLET PO SCH ×2 (08:43→20:46)
[2019-11-27] MEDS: LACTOBACILLUS RHAMNOSUS GG 1 CAPSULE. PO SCH ×2 (08:43→20:45)
[2019-11-27] MEDS: PANTOPRAZOLE 40 MG TABLET.DR. PO SCH ×2 (08:43→17:03)
[2019-11-27] MEDS: SUCRALFATE 1 GM TABLET. PO SCH ×4 (08:43→20:47)
[2019-11-27] MEDS: FOLIC/VIT B COMP W-C (RENAL) TABLET. PO SCH (08:44)
[2019-11-27] MEDS: OMEGA-3 FATTY ACIDS/FISH OIL 1,000 MG CAPSULE. PO SCH ×2 (08:44→20:46)
[2019-11-27] MEDS: ISOSORBIDE MONONITRATE ER 30 MG TAB.ER.24H PO SCH ×2 (08:44→20:45)
[2019-11-27] MEDS: TAMSULOSIN 0.4 MG CAP.ER.24H. PO SCH ×2 (08:44→20:46)
[2019-11-27] MEDS: LOSARTAN POTASSIUM 25 MG TABLET. PO SCH (08:44)
[2019-11-27] MEDS: METOPROLOL TART IMMED RELEASE 50 MG TABLET. PO SCH (09:00)
--- NOTE | 2019-11-27 11:18 | PDOC ---
PROGRESS NOTES Date of Service: DATE: 11/27/19 TIME: 11:18 Chief Complaint Chief Complaint VTE Prophylaxis Ordered VTE Prophylaxis Devices: Yes VTE Pharmacological Prophylaxi: Yes Assessment/Plan Assessment/Plan impression acute NSTEMI chronic renal failure anemia, azotemia. 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 Small nodule along the fissure on the right, Fleischner Society guidelines recommend an optional one-year follow-up for I risk individuals. Granulomatous ossifications. Sclerotic or possibly blastic lesion T7 correlation with any history of prostate cancer would be of benefit. recent PET scan No suspicious uptake at the T7 sclerotic lesion. This finding may possibly represent a bone island. No other suspicious sclerotic lesions. MRI of the thoracic spine without and with contrast may be performed for more definitive assessment if desired. Tracer uptake in the spine is heterogeneous. No definite increased tracer uptake localizes to the T7 vertebral body. Suggest correlation withPSA. ECHO 03/14The left ventricular systolic function is low normal. The ejection fraction is estimated at 50% mild to moderate mitral regurgitatio mild to moderate tricuspid regurgitation. PA pressure was estimated at 44 mmHg. C/W MOD PULM HTN 11/16 ECHO Ejection Fraction is estimated at 35%.moderate global hypokinesis.moderate mitral valve regurgitation.tricuspid regurgitation with an estimated PAP of 48 mmHg. apnea-hypopnea syndrome. PLAN ADMIT CVC trend troponin i Consult cardiology heparin per cardiology Consult Nephrology for dialysis management. Full code. P.r.n. Tylenol, p.r.n. Zofran, home meds, DVT prophylaxis on heparin drip . possible catheterization based on clinical course. 11/26 Peak troponin of 6.5 38 MIN pt exam, chart review, > 50% of time spent with exam, chart review, pt c are coordination Justifications for Admission Justifications for Admission Other Justification History of Present Illness History of Present Illness Identification/Chief Complaint Chief Complaint Mr Leal 79 yo M w/ PMHx ESRD, HTN, smoker who presents NSTEMI FROM [facility] ER He came in by EMS. 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 Endocrine: Hyperparathyroidism Past Surgical History Past Surgical History: Hernia Repair Family History Family History: Coronary Artery Disease, Hypertension Social History Smoke: No ALCOHOL: none Drugs: None Current Medications Current Medications Vitals Vitals Vital Signs Date Time Temp Pulse Resp B/P (MAP) Pulse Ox O2 Delivery O2 Flow Rate FiO2 11/27/19 09:00 48 11/27/19 08:44 163/50 11/27/19 08:00 Room Air 11/27/19 07:51 95 11/27/19 07:00 97.7 16 97.7 Physical Exam General: No acute distress Heart: Regular rate Lungs: Clear Abdomen: Normal bowel sounds, No tenderness Extremities: No clubbing Skin: No rashes, No breakdown Labs LABS Images Images TDI E/Lateral E' 9.5 E/Medial E' 12.4 Pulmonary Valve PV Peak Velocity 73.3cm/s PV Peak Grad. 2mmHg Tricuspid Valve TR P. Velocity 276cm/s TR Peak Gr. 31mmHg LEFT VENTRICLE The Left Ventricle is mildly dilated. There is mild concentric left ventricular hypertrophy. The systolic function is moderately impaired. The Ejection Fraction is estimated at 35%. There is moderate global hypokinesis. RIGHT VENTRICLE The right ventricle is normal size. There is normal right ventricular wall thickness. The right ventricular systolic function is normal. ATRIA The left atrium is mildly dilated. The right atrium is borderline dilated. The interatrial septum is intact with no evidence for an atrial septal defect or patent foramen ovale as noted on 2-D or Doppler imaging. AORTIC VALVE The aortic valve is thickened but opens well. Doppler and Color Flow revealed trace aortic regurgitation. There is no significant aortic valvular stenosis. Calculated aortic valve area is 2.78 cm2 with maximum pressure gradient of 11 mmHg and mean pressure gradient of 6 mmHg. MITRAL VALVE The mitral valve is mildly thickened. There is no evidence of mitral valve prolapse. There is no mitral valve stenosis with an mean gradient of 2.1 mmHg. Doppler and Color Flow revealed moderate mitral valve regurgitation. TRICUSPID VALVE The tricuspid valve is normal in structure and function. Doppler and Color Flow revealed trace to mild tricuspid regurgitation with an estimated PAP of 48 mmHg. There is no tricuspid valve stenosis. PULMONIC VALVE The pulmonic valve is not well visualized. Doppler and Color Flow revealed no pulmonic valvular regurgitation. GREAT VESSELS The aortic root is normal in size. The IVC is dilated. PERICARDIAL EFFUSION There is no evidence of significant pericardial effusion. Critical Notification Critical Value: No <Conclusion> The Left Ventricle is mildly dilated. The systolic function is moderately impaired. The Ejection Fraction is estimated at 35%. There is moderate global hypokinesis. There is mild concentric left ventricular hypertrophy. Doppler and Color Flow revealed trace aortic regurgitation. There is no significant aortic valvular stenosis. Doppler and Color Flow revealed moderate mitral valve regurgitation. Doppler and Color Flow revealed trace to mild tricuspid regurgitation with an estimated PAP of 48 mmHg. Signed by : Rishabh Bowers MD Electronically Approved : 11/16/2019 14:39:09 EXAM: CHEST 1 VIEW History: Central line placement COMPARISON: 11/10/2019 TECHNIQUE: Single portable radiograph of the chest FINDINGS: Mild cardiomegaly. Right internal jugular line. Moderate prominent bilateral interstitial lung markings likely congestive changes. Bibasilar lung airspace opacities likely atelectasis or infiltrates with the small bilateral pleural effusions. IMPRESSION: 1. Moderate congestive changes with small bilateral pleural effusions. 2. Right-sided internal jugular line in place. Electronically signed by: Augustine Patino MD (11/26/2019 12:39 PM) [id number] DICTATED and SIGNED BY: AUGUSTINE PATINO MD EXAM: CHEST 1 VIEW History: Central line placement COMPARISON: 11/10/2019 TECHNIQUE: Single portable radiograph of the chest FINDINGS: Mild cardiomegaly. Right internal jugular line. Moderate prominent bilateral interstitial lung markings likely congestive changes. Bibasilar lung airspace opacities likely atelectasis or infiltrates with the small bilateral pleural effusions. IMPRESSION: 1. Moderate congestive changes with small bilateral pleural effusions. 2. Right-sided internal jugular line in place. Electronically signed by: Augustine Patino MD (11/26/2019 12:39 PM) [id number] DICTATED and SIGNED BY: AUGUSTINE PATINO MD DATE: 11/26/19 1239 Laboratory Tests Test 11/26/19 11:45 11/26/19 12:00 11/26/19 18:00 11/27/19 04:50 Sodium Level 141 mmol/L (136-145) Potassium Level 4.4 mmol/L (3.5-5.1) Chloride Level 103 mmol/L (98-107) Carbon Dioxide Level 31 mmol/L (21-32) Anion Gap 7 (6-14) Blood Urea Nitrogen 35 mg/dL (8-26) Creatinine 4.2 mg/dL (0.7-1.3) Estimated GFR (Cockcroft-Gault) 13.8 BUN/Creatinine Ratio 8 (6-20) Glucose Level 79 mg/dL (70-99) Calcium Level 7.4 mg/dL (8.5-10.1) Total Bilirubin 0.5 mg/dL (0.2-1.0) Aspartate Amino Transf (AST/SGOT) 40 U/L (15-37) Alanine Aminotransferase (ALT/SGPT) 30 U/L (16-63) Alkaline Phosphatase 98 U/L (46-116) Total Protein 5.3 g/dL (6.4-8.2) Albumin 2.2 g/dL (3.4-5.0) Albumin/Globulin Ratio 0.7 (1.0-1.7) White Blood Count 4.2 x10^3/uL (4.0-11.0) 4.0 x10^3/uL (4.0-11.0) Red Blood Count 2.82 x10^6/uL (4.30-5.70) 2.60 x10^6/uL (4.30-5.70) Hemoglobin 9.1 g/dL (13.0-17.5) 8.6 g/dL (13.0-17.5) Hematocrit 27.7 % (39.0-53.0) 25.3 % (39.0-53.0) Mean Corpuscular Volume 98 fL (79-100) 98 fL (79-100) Mean Corpuscular Hemoglobin 32 pg (25-35) 33 pg (25-35) Mean Corpuscular Hemoglobin Concent 33 g/dL (31-37) 34 g/dL (31-37) Red Cell Distribution Width 15.4 % (11.5-14.5) 15.1 % (11.5-14.5) Platelet Count 215 x10^3/uL (140-400) 203 x10^3/uL (140-400) Prothrombin Time 14.8 SEC (11.7-14.0) Prothromb Time International Ratio 1.2 (0.8-1.1) Activated Partial Thromboplast Time 36 SEC (24-38) Heparin Anti-Xa Act, Unfractionated 0.70 IU/mL (0.30-0.70) 0.48 IU/mL (0.30-0.70) 0.36 IU/mL (0.30-0.70) Troponin I Quantitative 6.522 ng/mL (0.000-0.055) 2.556 ng/mL (0.000-0.055) Neutrophils (%) (Auto) 58 % (31-73) Lymphocytes (%) (Auto) 24 % (24-48) Monocytes (%) (Auto) 13 % (0-9) Eosinophils (%) (Auto) 4 % (0-3) Basophils (%) (Auto) 1 % (0-3) Neutrophils # (Auto) 2.3 x10^3/uL (1.8-7.7) Lymphocytes # (Auto) 1.0 x10^3/uL (1.0-4.8) Monocytes # (Auto) 0.5 x10^3/uL (0.0-1.1) Eosinophils # (Auto) 0.2 x10^3/uL (0.0-0.7) Basophils # (Auto) 0.0 x10^3/uL (0.0-0.2) Test 11/27/19 05:00 Sodium Level 138 mmol/L (136-145) Potassium Level 3.9 mmol/L (3.5-5.1) Chloride Level 102 mmol/L (98-107) Carbon Dioxide Level 30 mmol/L (21-32) Anion Gap 6 (6-14) Blood Urea Nitrogen 24 mg/dL (8-26) Creatinine 3.3 mg/dL (0.7-1.3) Estimated GFR (Cockcroft-Gault) 18.3 Glucose Level 80 mg/dL (70-99) Calcium Level 7.5 mg/dL (8.5-10.1) Magnesium Level 1.9 mg/dL (1.8-2.4) Comment Review of Relevant I have reviewed the following items karey (where applicable) has been applied. Labs Laboratory Tests Test 11/26/19 11:45 11/26/19 12:00 11/26/19 18:00 11/27/19 04:50 Sodium Level 141 mmol/L (136-145) Potassium Level 4.4 mmol/L (3.5-5.1) Chloride Level 103 mmol/L (98-107) Carbon Dioxide Level 31 mmol/L (21-32) Anion Gap 7 (6-14) Blood Urea Nitrogen 35 mg/dL (8-26) Creatinine 4.2 mg/dL (0.7-1.3) Estimated GFR (Cockcroft-Gault) 13.8 BUN/Creatinine Ratio 8 (6-20) Glucose Level 79 mg/dL (70-99) Calcium Level 7.4 mg/dL (8.5-10.1) Total Bilirubin 0.5 mg/dL (0.2-1.0) Aspartate Amino Transf (AST/SGOT) 40 U/L (15-37) Alanine Aminotransferase (ALT/SGPT) 30 U/L (16-63) Alkaline Phosphatase 98 U/L (46-116) Total Protein 5.3 g/dL (6.4-8.2) Albumin 2.2 g/dL (3.4-5.0) Albumin/Globulin Ratio 0.7 (1.0-1.7) White Blood Count 4.2 x10^3/uL (4.0-11.0) 4.0 x10^3/uL (4.0-11.0) Red Blood Count 2.82 x10^6/uL (4.30-5.70) 2.60 x10^6/uL (4.30-5.70) Hemoglobin 9.1 g/dL (13.0-17.5) 8.6 g/dL (13.0-17.5) Hematocrit 27.7 % (39.0-53.0) 25.3 % (39.0-53.0) Mean Corpuscular Volume 98 fL (79-100) 98 fL (79-100) Mean Corpuscular Hemoglobin 32 pg (25-35) 33 pg (25-35) Mean Corpuscular Hemoglobin Concent 33 g/dL (31-37) 34 g/dL (31-37) Red Cell Distribution Width 15.4 % (11.5-14.5) 15.1 % (11.5-14.5) Platelet Count 215 x10^3/uL (140-400) 203 x10^3/uL (140-400) Prothrombin Time 14.8 SEC (11.7-14.0) Prothromb Time International Ratio 1.2 (0.8-1.1) Activated Partial Thromboplast Time 36 SEC (24-38) Heparin Anti-Xa Act, Unfractionated 0.70 IU/mL (0.30-0.70) 0.48 IU/mL (0.30-0.70) 0.36 IU/mL (0.30-0.70) Troponin I Quantitative 6.522 ng/mL (0.000-0.055) 2.556 ng/mL (0.000-0.055) Neutrophils (%) (Auto) 58 % (31-73) Lymphocytes (%) (Auto) 24 % (24-48) Monocytes (%) (Auto) 13 % (0-9) Eosinophils (%) (Auto) 4 % (0-3) Basophils (%) (Auto) 1 % (0-3) Neutrophils # (Auto) 2.3 x10^3/uL (1.8-7.7) Lymphocytes # (Auto) 1.0 x10^3/uL (1.0-4.8) Monocytes # (Auto) 0.5 x10^3/uL (0.0-1.1) Eosinophils # (Auto) 0.2 x10^3/uL (0.0-0.7) Basophils # (Auto) 0.0 x10^3/uL (0.0-0.2) Test 11/27/19 05:00 Sodium Level 138 mmol/L (136-145) Potassium Level 3.9 mmol/L (3.5-5.1) Chloride Level 102 mmol/L (98-107) Carbon Dioxide Level 30 mmol/L (21-32) Anion Gap 6 (6-14) Blood Urea Nitrogen 24 mg/dL (8-26) Creatinine 3.3 mg/dL (0.7-1.3) Estimated GFR (Cockcroft-Gault) 18.3 Glucose Level 80 mg/dL (70-99) Calcium Level 7.5 mg/dL (8.5-10.1) Magnesium Level 1.9 mg/dL (1.8-2.4) Laboratory Tests Test 11/26/19 11:45 11/26/19 12:00 11/26/19 18:00 11/27/19 04:50 Sodium Level 141 mmol/L (136-145) Potassium Level 4.4 mmol/L (3.5-5.1) Chloride Level 103 mmol/L (98-107) Carbon Dioxide Level 31 mmol/L (21-32) Anion Gap 7 (6-14) Blood Urea Nitrogen 35 mg/dL (8-26) Creatinine 4.2 mg/dL (0.7-1.3) Estimated GFR (Cockcroft-Gault) 13.8 BUN/Creatinine Ratio 8 (6-20) Glucose Level 79 mg/dL (70-99) Calcium Level 7.4 mg/dL (8.5-10.1) Total Bilirubin 0.5 mg/dL (0.2-1.0) Aspartate Amino Transf (AST/SGOT) 40 U/L (15-37) Alanine Aminotransferase (ALT/SGPT) 30 U/L (16-63) Alkaline Phosphatase 98 U/L (46-116) Total Protein 5.3 g/dL (6.4-8.2) Albumin 2.2 g/dL (3.4-5.0) Albumin/Globulin Ratio 0.7 (1.0-1.7) White Blood Count 4.2 x10^3/uL (4.0-11.0) 4.0 x10^3/uL (4.0-11.0) Red Blood Count 2.82 x10^6/uL (4.30-5.70) 2.60 x10^6/uL (4.30-5.70) Hemoglobin 9.1 g/dL (13.0-17.5) 8.6 g/dL (13.0-17.5) Hematocrit 27.7 % (39.0-53.0) 25.3 % (39.0-53.0) Mean Corpuscular Volume 98 fL (79-100) 98 fL (79-100) Mean Corpuscular Hemoglobin 32 pg (25-35) 33 pg (25-35) Mean Corpuscular Hemoglobin Concent 33 g/dL (31-37) 34 g/dL (31-37) Red Cell Distribution Width 15.4 % (11.5-14.5) 15.1 % (11.5-14.5) Platelet Count 215 x10^3/uL (140-400) 203 x10^3/uL (140-400) Prothrombin Time 14.8 SEC (11.7-14.0) Prothromb Time International Ratio 1.2 (0.8-1.1) Activated Partial Thromboplast Time 36 SEC (24-38) Heparin Anti-Xa Act, Unfractionated 0.70 IU/mL (0.30-0.70) 0.48 IU/mL (0.30-0.70) 0.36 IU/mL (0.30-0.70) Troponin I Quantitative 6.522 ng/mL (0.000-0.055) 2.556 ng/mL (0.000-0.055) Neutrophils (%) (Auto) 58 % (31-73) Lymphocytes (%) (Auto) 24 % (24-48) Monocytes (%) (Auto) 13 % (0-9) Eosinophils (%) (Auto) 4 % (0-3) Basophils (%) (Auto) 1 % (0-3) Neutrophils # (Auto) 2.3 x10^3/uL (1.8-7.7) Lymphocytes # (Auto) 1.0 x10^3/uL (1.0-4.8) Monocytes # (Auto) 0.5 x10^3/uL (0.0-1.1) Eosinophils # (Auto) 0.2 x10^3/uL (0.0-0.7) Basophils # (Auto) 0.0 x10^3/uL (0.0-0.2) Test 11/27/19 05:00 Sodium Level 138 mmol/L (136-145) Potassium Level 3.9 mmol/L (3.5-5.1) Chloride Level 102 mmol/L (98-107) Carbon Dioxide Level 30 mmol/L (21-32) Anion Gap 6 (6-14) Blood Urea Nitrogen 24 mg/dL (8-26) Creatinine 3.3 mg/dL (0.7-1.3) Estimated GFR (Cockcroft-Gault) 18.3 Glucose Level 80 mg/dL (70-99) Calcium Level 7.5 mg/dL (8.5-10.1) Magnesium Level 1.9 mg/dL (1.8-2.4) Medications Current Medications Morphine Sulfate (Morphine Sulfate) 2 mg PRN Q2HR PRN IV PAIN; Start 11/26/19 at 10:45 Heparin Sodium/ Dextrose 250 ml @ 9.396 mls/ hr CONT PRN IV PER PROTOCOL Last administered on 11/26/19at 12:42; Start 11/26/19 at 10:45 Heparin Sodium (Porcine) (Heparin Sodium) 1,950 unit PRN Q6HRS PRN IV FOR UFH LEVEL LESS THAN 0.2; Start 11/26/19 at 10:45 Sodium Chloride (Normal Saline Flush) 3 ml QSHIFT PRN IV AFTER MEDS AND BLOOD DRAWS; Start 11/26/19 at 11:45 Ondansetron HCl (Zofran) 4 mg PRN Q4HRS PRN IV NAUSEA/VOMITING; Start 11/26/19 at 11:45 Acetaminophen (Tylenol) 650 mg PRN Q4HRS PRN PO TEMP OVER 100.4F OR MILD PAIN; Start 11/26/19 at 11:45 Docusate Sodium (Colace) 100 mg PRN BID PRN PO HARD STOOLS; Start 11/26/19 at 11:45 Albuterol Sulfate (Ventolin Neb Soln) 2.5 mg PRN Q4HRS PRN NEB SHORTNESS OF BREATH; Start 11/26/19 at 11:45 Guaifenesin (Robitussin) 200 mg PRN Q4HRS PRN PO COUGH; Start 11/26/19 at 11:45 Lorazepam (Ativan) 0.5 mg PRN Q4HRS PRN PO ANXIETY / AGITATION; Start 11/26/19 at 11:45 Alprazolam (Xanax) 0.5 mg PRN Q6HRS PRN PO ANXIETY / AGITATION Last administered on 11/27/19at 00:42; Start 11/26/19 at 12:00 Amlodipine Besylate (Norvasc) 5 mg BID PO Last administered on 11/27/19at 08:43; Start 11/26/19 at 21:00 Bupropion HCl (Wellbutrin Xl) 150 mg QAM PO Last administered on 11/27/19at 08:42; Start 11/27/19 at 09:00 Diphenhydramine HCl (Benadryl) 50 mg PRN Q6HRS PRN PO itching; Start 11/26/19 at 12:00 Vitamin B Complex/ Vitamin C (Mandi-Debbie) 1 tab DAILY PO Last administered on 11/27/19 08:44; Start 11/27/19 at 09:00 Acetaminophen/ Hydrocodone Bitart (Lortab 5/325) 1 tab PRN Q8HRS PRN PO PAIN; Start 11/26/19 at 12:00 Isosorbide Mononitrate (Imdur) 30 mg BID PO Last administered on 11/27/19 08:44; Start 11/26/19 at 21:00 Lactobacillus Rhamnosus (Culturelle) 1 cap BID PO Last administered on 11/27/19 08:43; Start 11/26/19 at 21:00 Losartan Potassium (Cozaar) 25 mg DAILY PO Last administered on 11/27/19 08:44; Start 11/27/19 at 09:00 Metoprolol Tartrate (Lopressor) 50 mg BID PO Last administered on 11/26/19 20:45; Start 11/26/19 at 21:00; Stop 11/27/19 at 10:53; Status DC Pantoprazole Sodium (Protonix) 40 mg BIDWMEALS PO Last administered on 11/27/19 08:43; Start 11/26/19 at 17:00 Simvastatin (Zocor) 30 mg HS PO Last administered on 11/26/19 20:45; Start 11/26/19 at 21:00 Sucralfate (Carafate) 1 gm QIDACHS PO Last administered on 11/27/19 11:15; Start 11/26/19 at 16:30 Tamsulosin HCl (Flomax) 0.4 mg BID PO Last administered on 11/27/19 08:44; Start 11/26/19 at 21:00 Albuterol Sulfate (Ventolin Neb Soln) 2.5 mg RTQID NEB Last administered on 11/27/19 07:51; Start 11/26/19 at 16:00 Vitamin D (Vitamin D3) 2,000 unit DAILY PO Last administered on 11/27/19 08:43; Start 11/27/19 at 09:00 Fish Oil (Fish Oil) 1,000 mg BID PO Last administered on 11/27/19at 08:44; Start 11/26/19 at 21:00 Budesonide (Pulmicort) 0.5 mg RTBID NEB Last administered on 11/27/19at 07:51; Start 11/26/19 at 20:00 Sodium Chloride 1,000 ml @ 1,000 mls/hr Q1H PRN IV hypotension; Start 11/26/19 at 13:17; Stop 11/26/19 at 19:16; Status DC Albumin Human 200 ml @ 200 mls/hr 1X PRN PRN IV Hypotension; Start 11/26/19 at 13:30; Stop 11/26/19 at 19:29; Status DC Sodium Chloride 1,000 ml @ 400 mls/hr Q2H30M PRN IV PATENCY; Start 11/26/19 at 13:17; Stop 11/27/19 at 01:16; Status DC Info (PHARMACY MONITORING -- do not chart) 1 each PRN DAILY PRN MC SEE COMMENTS; Start 11/26/19 at 13:30 Info (PHARMACY MONITORING -- do not chart) 1 each PRN DAILY PRN MC SEE COMMENTS; Start 11/26/19 at 13:30 Lidocaine HCl (Xylocaine-Mpf 1% 2ml Vial) 2 ml 1X ONCE ID Last administered on 11/26/19at 14:09; Start 11/26/19 at 14:00; Stop 11/26/19 at 14:01; Status DC Info (Anti-Coagulation Monitoring By Pharmacy) 1 each PRN DAILY PRN MC SEE COMMENTS Last administered on 11/27/19at 07:45; Start 11/27/19 at 07:45 Active Scripts Active Culturelle (Lactobacillus Rhamnosus Gg) 1 Each Cap.sprink 1 Cap PO BID 30 Days Metoprolol Tartrate 50 Mg Tablet 50 Mg PO BID 90 Days Merrem (Meropenem) 500 Mg Vial 500 Mg IV QHS 7 Days [place] 5-325 Tablet (Acetaminophen/Hydrocodone Bitart) 1 Each Tablet 1 Tab PO Q6- 8HRS PRN 6 Days Reported Amlodipine Besylate 5 Mg Tablet 5 Mg PO BID Losartan Potassium 25 Mg Tablet 25 Mg PO DAILY Do not take prior to going to dialysis Fish Oil 1,000 mg Softgel ([place]-3/Dha/Epa/Fish Oil) 1,000 Mg Capsule 1,000 Mg PO DAILY Next dose tomorrow 11/16 Sucralfate 1 Gm Tablet 1 Gm PO QID Next dose tonight 11/15 Vitamin D3 (Cholecalciferol (Vitamin D3)) 10 Mcg Tablet 2,000 Units PO DAILY Next dose tomorrow 11/16 Mandi-Debbie Tablet (Folic Acid/Vitamin B Comp W-C) 0.8 Mg Tablet 0.8 Mg PO DAILY Next dose tomorrow 11/16 Isosorbide Mononitrate Er (Isosorbide Mononitrate) 30 Mg Tab.er.24h 30 Mg PO BID Next dose ton11/15 Eliquis (Apixaban) 2.5 Mg Tablet 2.5 Mg PO BID Next dose 11/15 Benadryl (Diphenhydramine Hcl) 25 Mg Capsule 50 Mg PO PRN Q6HRS PRN Xanax (Alprazolam) 0.5 Mg Tablet 0.5 Mg PO PRN Q6HRS PRN Flomax (Tamsulosin Hcl) 0.4 Mg Cap.er.24h 0.4 Mg PO BID Next dose ton11/15 Simvastatin 20 Mg Tablet 30 Mg PO HS Next dose ton11/15 Pantoprazole Sodium (Pantoprazole Sodium) 40 Mg Tablet.dr 40 Mg PO BID Next dose tomorrow 11/16 Bupropion Xl (Bupropion Hcl) 150 Mg Tab.er.24h 150 Mg PO QAM Next dose tomorrow 11/16 Symbicort 160-4.5 Mcg Inhaler (Budesonide/Formoterol Fumarate) 10.2 Gm Hfa.aer.ad 2 Puff IH BID Ventolin Hfa Inhaler (Albuterol Sulfate) 18 Gm Hfa.aer.ad 2 Puff INH QID Vitals/I & O Vital Sign - Last 24 Hours 11/26/19 11/26/19 11/26/19 11/26/19 16:47 19:50 20:00 20:40 Temp 98.0 98.0 Pulse 50 Resp 21 B/P (MAP) 178/57 (97) Pulse Ox 94 95 96 O2 Delivery Room Air Room Air Room Air Room Air 11/26/19 11/26/19 11/26/19 11/26/19 20:41 20:44 20:45 20:45 Pulse 50 50 50 B/P (MAP) 178/57 178/57 178/57 Pulse Ox 96 O2 Delivery Room Air 11/26/19 11/27/19 11/27/19 11/27/19 23:34 03:00 04:20 07:00 Temp 98.1 97.7 97.7 98.1 97.7 97.7 Pulse 54 50 54 Resp 21 20 16 B/P (MAP) 173/77 (109) 169/76 (107) 163/50 (87) Pulse Ox 94 98 94 O2 Delivery Room Air Room Air Room Air Room Air 11/27/19 11/27/19 11/27/19 11/27/19 07:51 08:00 08:43 08:44 Pulse 54 54 B/P (MAP) 163/50 163/50 Pulse Ox 95 O2 Delivery Room Air Room Air 11/27/19 11/27/19 08:44 09:00 Pulse 54 48 B/P (MAP) 163/50 Intake and Output 11/26/19 11/26/19 11/27/19 15:00 23:00 07:00 Intake Total 200 ml 300 ml 100 ml Output Total 100 ml Balance 200 ml 200 ml 100 ml Justicifation of Admission Dx: Justifications for Admission: Justification of Admission Dx: Yes TANVIR CARRASCO MD Nov 27, 2019 11:18
[2019-11-27 11:20] VITALS: BP 157/49
--- NOTE | 2019-11-27 13:53 | PDOC ---
Renal-Progress Notes Subjective Notes Notes NO NEW COMPLAINTS History of Present Illness Hx of present illness STABLE Vitals Vitals Vital Signs Date Time Temp Pulse Resp B/P (MAP) Pulse Ox O2 Delivery O2 Flow Rate FiO2 11/27/19 11:51 94 Room Air 11/27/19 11:20 97.1 54 16 157/49 (85) 97.1 Weight Weight [ ] I.O. Intake and Output Intake and Output 11/27/19 07:00 Intake Total 600 ml Output Total 100 ml Balance 500 ml Intake Oral 600 ml Output Urine Total 100 ml # Voids 3 Labs Labs Laboratory Tests Test 11/26/19 18:00 11/27/19 04:50 11/27/19 05:00 Heparin Anti-Xa Act, Unfractionated 0.48 IU/mL (0.30-0.70) 0.36 IU/mL (0.30-0.70) White Blood Count 4.0 x10^3/uL (4.0-11.0) Red Blood Count 2.60 x10^6/uL (4.30-5.70) Hemoglobin 8.6 g/dL (13.0-17.5) Hematocrit 25.3 % (39.0-53.0) Mean Corpuscular Volume 98 fL (79-100) Mean Corpuscular Hemoglobin 33 pg (25-35) Mean Corpuscular Hemoglobin Concent 34 g/dL (31-37) Red Cell Distribution Width 15.1 % (11.5-14.5) Platelet Count 203 x10^3/uL (140-400) Neutrophils (%) (Auto) 58 % (31-73) Lymphocytes (%) (Auto) 24 % (24-48) Monocytes (%) (Auto) 13 % (0-9) Eosinophils (%) (Auto) 4 % (0-3) Basophils (%) (Auto) 1 % (0-3) Neutrophils # (Auto) 2.3 x10^3/uL (1.8-7.7) Lymphocytes # (Auto) 1.0 x10^3/uL (1.0-4.8) Monocytes # (Auto) 0.5 x10^3/uL (0.0-1.1) Eosinophils # (Auto) 0.2 x10^3/uL (0.0-0.7) Basophils # (Auto) 0.0 x10^3/uL (0.0-0.2) Troponin I Quantitative 2.556 ng/mL (0.000-0.055) Sodium Level 138 mmol/L (136-145) Potassium Level 3.9 mmol/L (3.5-5.1) Chloride Level 102 mmol/L (98-107) Carbon Dioxide Level 30 mmol/L (21-32) Anion Gap 6 (6-14) Blood Urea Nitrogen 24 mg/dL (8-26) Creatinine 3.3 mg/dL (0.7-1.3) Estimated GFR (Cockcroft-Gault) 18.3 Glucose Level 80 mg/dL (70-99) Calcium Level 7.5 mg/dL (8.5-10.1) Magnesium Level 1.9 mg/dL (1.8-2.4) Review of Systems Constitutional: yes: other (CONFUSION, NOT RELIABLE) Physical Exam General Appearance: no apparent distress Skin: warm Heart: S1S2 Abdomen: soft, bowel sounds present Extremities: pulses present Neurology: alert, confused Musculoskeletal: Osteoarthritis Assessment Assessment IMP CHEST PAIN HX HTN ANEMIA ESRD PLAN HD [facility] FRANKIE ASCENCIO MD Nov 27, 2019 13:53
[2019-11-27 15:15] VITALS: BP 148/43
--- NOTE | 2019-11-27 15:30 | PDOC ---
PROGRESS NOTES Date of Service DATE: 11/27/19 TIME: 15:28 Subjective Subjective Patient seen and examined Objective Objective Vital Signs Date Time Temp Pulse Resp B/P (MAP) Pulse Ox O2 Delivery O2 Flow Rate FiO2 11/27/19 15:15 98.2 55 18 148/43 (78) 96 Room Air 98.2 Intake and Output 11/27/19 07:00 Intake Total 600 ml Output Total 100 ml Balance 500 ml Intake Oral 600 ml Output Urine Total 100 ml # Voids 3 Physical Exam Abdomen: Normal bowel sounds Heart: Regular rate General: No acute distress Lungs: Clear to auscultation Assessment Assessment 1. Chest pain. Probable non-ST elevated myocardial infarction. Started on heparin and is now pain-free. Peak troponin of 6.5 and now trending down. Continue present treatment. Will premedicate for contrast allergy with probable catheterization tomorrow. 2. Chronic kidney disease. Is being followed by the renal service. 3. Atrial fibrillation. Rate controlled. 4. Hypertension. Now under better control. We will continue to monitor. 5. Cardiomyopathy. Ejection fraction of 35%. Continue to monitor fluid stat us. 6. Hyperlipidemia. Comment Review of Relevant I have reviewed the following items karey (where applicable) has been applied. Labs Laboratory Tests Test 11/26/19 11:45 11/26/19 12:00 11/26/19 18:00 11/27/19 04:50 Sodium Level 141 mmol/L (136-145) Potassium Level 4.4 mmol/L (3.5-5.1) Chloride Level 103 mmol/L (98-107) Carbon Dioxide Level 31 mmol/L (21-32) Anion Gap 7 (6-14) Blood Urea Nitrogen 35 mg/dL (8-26) Creatinine 4.2 mg/dL (0.7-1.3) Estimated GFR (Cockcroft-Gault) 13.8 BUN/Creatinine Ratio 8 (6-20) Glucose Level 79 mg/dL (70-99) Calcium Level 7.4 mg/dL (8.5-10.1) Total Bilirubin 0.5 mg/dL (0.2-1.0) Aspartate Amino Transf (AST/SGOT) 40 U/L (15-37) Alanine Aminotransferase (ALT/SGPT) 30 U/L (16-63) Alkaline Phosphatase 98 U/L (46-116) Total Protein 5.3 g/dL (6.4-8.2) Albumin 2.2 g/dL (3.4-5.0) Albumin/Globulin Ratio 0.7 (1.0-1.7) White Blood Count 4.2 x10^3/uL (4.0-11.0) 4.0 x10^3/uL (4.0-11.0) Red Blood Count 2.82 x10^6/uL (4.30-5.70) 2.60 x10^6/uL (4.30-5.70) Hemoglobin 9.1 g/dL (13.0-17.5) 8.6 g/dL (13.0-17.5) Hematocrit 27.7 % (39.0-53.0) 25.3 % (39.0-53.0) Mean Corpuscular Volume 98 fL (79-100) 98 fL (79-100) Mean Corpuscular Hemoglobin 32 pg (25-35) 33 pg (25-35) Mean Corpuscular Hemoglobin Concent 33 g/dL (31-37) 34 g/dL (31-37) Red Cell Distribution Width 15.4 % (11.5-14.5) 15.1 % (11.5-14.5) Platelet Count 215 x10^3/uL (140-400) 203 x10^3/uL (140-400) Prothrombin Time 14.8 SEC (11.7-14.0) Prothromb Time International Ratio 1.2 (0.8-1.1) Activated Partial Thromboplast Time 36 SEC (24-38) Heparin Anti-Xa Act, Unfractionated 0.70 IU/mL (0.30-0.70) 0.48 IU/mL (0.30-0.70) 0.36 IU/mL (0.30-0.70) Troponin I Quantitative 6.522 ng/mL (0.000-0.055) 2.556 ng/mL (0.000-0.055) Neutrophils (%) (Auto) 58 % (31-73) Lymphocytes (%) (Auto) 24 % (24-48) Monocytes (%) (Auto) 13 % (0-9) Eosinophils (%) (Auto) 4 % (0-3) Basophils (%) (Auto) 1 % (0-3) Neutrophils # (Auto) 2.3 x10^3/uL (1.8-7.7) Lymphocytes # (Auto) 1.0 x10^3/uL (1.0-4.8) Monocytes # (Auto) 0.5 x10^3/uL (0.0-1.1) Eosinophils # (Auto) 0.2 x10^3/uL (0.0-0.7) Basophils # (Auto) 0.0 x10^3/uL (0.0-0.2) Test 11/27/19 05:00 Sodium Level 138 mmol/L (136-145) Potassium Level 3.9 mmol/L (3.5-5.1) Chloride Level 102 mmol/L (98-107) Carbon Dioxide Level 30 mmol/L (21-32) Anion Gap 6 (6-14) Blood Urea Nitrogen 24 mg/dL (8-26) Creatinine 3.3 mg/dL (0.7-1.3) Estimated GFR (Cockcroft-Gault) 18.3 Glucose Level 80 mg/dL (70-99) Calcium Level 7.5 mg/dL (8.5-10.1) Magnesium Level 1.9 mg/dL (1.8-2.4) Laboratory Tests Test 11/26/19 18:00 11/27/19 04:50 11/27/19 05:00 Heparin Anti-Xa Act, Unfractionated 0.48 IU/mL (0.30-0.70) 0.36 IU/mL (0.30-0.70) White Blood Count 4.0 x10^3/uL (4.0-11.0) Red Blood Count 2.60 x10^6/uL (4.30-5.70) Hemoglobin 8.6 g/dL (13.0-17.5) Hematocrit 25.3 % (39.0-53.0) Mean Corpuscular Volume 98 fL (79-100) Mean Corpuscular Hemoglobin 33 pg (25-35) Mean Corpuscular Hemoglobin Concent 34 g/dL (31-37) Red Cell Distribution Width 15.1 % (11.5-14.5) Platelet Count 203 x10^3/uL (140-400) Neutrophils (%) (Auto) 58 % (31-73) Lymphocytes (%) (Auto) 24 % (24-48) Monocytes (%) (Auto) 13 % (0-9) Eosinophils (%) (Auto) 4 % (0-3) Basophils (%) (Auto) 1 % (0-3) Neutrophils # (Auto) 2.3 x10^3/uL (1.8-7.7) Lymphocytes # (Auto) 1.0 x10^3/uL (1.0-4.8) Monocytes # (Auto) 0.5 x10^3/uL (0.0-1.1) Eosinophils # (Auto) 0.2 x10^3/uL (0.0-0.7) Basophils # (Auto) 0.0 x10^3/uL (0.0-0.2) Troponin I Quantitative 2.556 ng/mL (0.000-0.055) Sodium Level 138 mmol/L (136-145) Potassium Level 3.9 mmol/L (3.5-5.1) Chloride Level 102 mmol/L (98-107) Carbon Dioxide Level 30 mmol/L (21-32) Anion Gap 6 (6-14) Blood Urea Nitrogen 24 mg/dL (8-26) Creatinine 3.3 mg/dL (0.7-1.3) Estimated GFR (Cockcroft-Gault) 18.3 Glucose Level 80 mg/dL (70-99) Calcium Level 7.5 mg/dL (8.5-10.1) Magnesium Level 1.9 mg/dL (1.8-2.4) Medications Current Medications Morphine Sulfate (Morphine Sulfate) 2 mg PRN Q2HR PRN IV PAIN; Start 11/26/19 at 10:45 Heparin Sodium/ Dextrose 250 ml @ 9.396 mls/ hr CONT PRN IV PER PROTOCOL Last administered on 11/26/19at 12:42; Start 11/26/19 at 10:45 Heparin Sodium (Porcine) (Heparin Sodium) 1,950 unit PRN Q6HRS PRN IV FOR UFH LEVEL LESS THAN 0.2; Start 11/26/19 at 10:45 Sodium Chloride (Normal Saline Flush) 3 ml QSHIFT PRN IV AFTER MEDS AND BLOOD DRAWS; Start 11/26/19 at 11:45 Ondansetron HCl (Zofran) 4 mg PRN Q4HRS PRN IV NAUSEA/VOMITING; Start 11/26/19 at 11:45 Acetaminophen (Tylenol) 650 mg PRN Q4HRS PRN PO TEMP OVER 100.4F OR MILD PAIN; Start 11/26/19 at 11:45 Docusate Sodium (Colace) 100 mg PRN BID PRN PO HARD STOOLS; Start 11/26/19 at 11:45 Albuterol Sulfate (Ventolin Neb Soln) 2.5 mg PRN Q4HRS PRN NEB SHORTNESS OF BREATH; Start 11/26/19 at 11:45 Guaifenesin (Robitussin) 200 mg PRN Q4HRS PRN PO COUGH; Start 11/26/19 at 11:45 Lorazepam (Ativan) 0.5 mg PRN Q4HRS PRN PO ANXIETY / AGITATION; Start 11/26/19 at 11:45 Alprazolam (Xanax) 0.5 mg PRN Q6HRS PRN PO ANXIETY / AGITATION Last administered on 11/27/19at 00:42; Start 11/26/19 at 12:00 Amlodipine Besylate (Norvasc) 5 mg BID PO Last administered on 11/27/19 08:43; Start 11/26/19 at 21:00 Bupropion HCl (Wellbutrin Xl) 150 mg QAM PO Last administered on 11/27/19at 08:42; Start 11/27/19 at 09:00 Diphenhydramine HCl (Benadryl) 50 mg PRN Q6HRS PRN PO itching; Start 11/26/19 at 12:00 Vitamin B Complex/ Vitamin C (Mandi-Debbie) 1 tab DAILY PO Last administered on 11/27/19at 08:44; Start 11/27/19 at 09:00 Acetaminophen/ Hydrocodone Bitart (Lortab 5/325) 1 tab PRN Q8HRS PRN PO PAIN; Start 11/26/19 at 12:00 Isosorbide Mononitrate (Imdur) 30 mg BID PO Last administered on 11/27/19at 08:44; Start 11/26/19 at 21:00 Lactobacillus Rhamnosus (Culturelle) 1 cap BID PO Last administered on 11/27/19at 08:43; Start 11/26/19 at 21:00 Losartan Potassium (Cozaar) 25 mg DAILY PO Last administered on 11/27/19 08:44; Start 11/27/19 at 09:00 Metoprolol Tartrate (Lopressor) 50 mg BID PO Last administered on 11/26/19 20:45; Start 11/26/19 at 21:00; Stop 11/27/19 at 10:53; Status DC Pantoprazole Sodium (Protonix) 40 mg BIDWMEALS PO Last administered on 08:43; Start 11/26/19 at 17:00 Simvastatin (Zocor) 30 mg HS PO Last administered on 11/26/19 20:45; Start 11/26/19 at 21:00 Sucralfate (Carafate) 1 gm QIDACHS PO Last administered on 11/27/19 11:15; Start 11/26/19 at 16:30 Tamsulosin HCl (Flomax) 0.4 mg BID PO Last administered on 11/27/19 08:44; Start 11/26/19 at 21:00 Albuterol Sulfate (Ventolin Neb Soln) 2.5 mg RTQID NEB Last administered on 11/27/19 11:51; Start 11/26/19 at 16:00 Vitamin D (Vitamin D3) 2,000 unit DAILY PO Last administered on 11/27/19 08:43; Start 11/27/19 at 09:00 Fish Oil (Fish Oil) 1,000 mg BID PO Last administered on 11/27/19 08:44; Star t 11/26/19 at 21:00 Budesonide (Pulmicort) 0.5 mg RTBID NEB Last administered on 11/27/19 07:51; Start 11/26/19 at 20:00 Sodium Chloride 1,000 ml @ 1,000 mls/hr Q1H PRN IV hypotension; Start 11/26/19 at 13:17; Stop 11/26/19 at 19:16; Status DC Albumin Human 200 ml @ 200 mls/hr 1X PRN PRN IV Hypotension; Start 11/26/19 at 13:30; Stop 11/26/19 at 19:29; Status DC Sodium Chloride 1,000 ml @ 400 mls/hr Q2H30M PRN IV PATENCY; Start 11/26/19 at 13:17; Stop 11/27/19 at 01:16; Status DC Info (PHARMACY MONITORING -- do not chart) 1 each PRN DAILY PRN MC SEE COMMENTS; Start 11/26/19 at 13:30 Info (PHARMACY MONITORING -- do not chart) 1 each PRN DAILY PRN MC SEE COMMENTS; Start 11/26/19 at 13:30 Lidocaine HCl (Xylocaine-Mpf 1% 2ml Vial) 2 ml 1X ONCE ID Last administered on 11/26/19at 14:09; Start 11/26/19 at 14:00; Stop 11/26/19 at 14:01; Status DC Info (Anti-Coagulation Monitoring By Pharmacy) 1 each PRN DAILY PRN MC SEE COMMENTS Last administered on 11/27/19at 07:45; Start 11/27/19 at 07:45 Active Scripts Active Culturelle (Lactobacillus Rhamnosus Gg) 1 Each Cap.sprink 1 Cap PO BID 30 Days Metoprolol Tartrate 50 Mg Tablet 50 Mg PO BID 90 Days Merrem (Meropenem) 500 Mg Vial 500 Mg IV QHS 7 Days [place] 5-325 Tablet (Acetaminophen/Hydrocodone Bitart) 1 Each Tablet 1 Tab PO Q6- 8HRS PRN 6 Days Reported Amlodipine Besylate 5 Mg Tablet 5 Mg PO BID Losartan Potassium 25 Mg Tablet 25 Mg PO DAILY Do not take prior to going to dialysis Fish Oil 1,000 mg Softgel ([place]-3/Dha/Epa/Fish Oil) 1,000 Mg Capsule 1,000 Mg PO DAILY Next dose tomorrow 11/16 Sucralfate 1 Gm Tablet 1 Gm PO QID Next dose ton11/15 Vitamin D3 (Cholecalciferol (Vitamin D3)) 10 Mcg Tablet 2,000 Units PO DAILY Next dose tomorrow 11/16 Mandi-Debbie Tablet (Folic Acid/Vitamin B Comp W-C) 0.8 Mg Tablet 0.8 Mg PO DAILY Next dose tomorrow 11/16 Isosorbide Mononitrate Er (Isosorbide Mononitrate) 30 Mg Tab.er.24h 30 Mg PO BID Next dose tonight 11/15 Eliquis (Apixaban) 2.5 Mg Tablet 2.5 Mg PO BID Next dose ton11/15 Benadryl (Diphenhydramine Hcl) 25 Mg Capsule 50 Mg PO PRN Q6HRS PRN Xanax (Alprazolam) 0.5 Mg Tablet 0.5 Mg PO PRN Q6HRS PRN Flomax (Tamsulosin Hcl) 0.4 Mg Cap.er.24h 0.4 Mg PO BID Next dose tonight 11/15 Simvastatin 20 Mg Tablet 30 Mg PO HS Next dose tonight 11/15 Pantoprazole Sodium (Pantoprazole Sodium) 40 Mg Tablet.dr 40 Mg PO BID Next dose tomorrow 11/16 Bupropion Xl (Bupropion Hcl) 150 Mg Tab.er.24h 150 Mg PO QAM Next dose tomorrow 11/16 Symbicort 160-4.5 Mcg Inhaler (Budesonide/Formoterol Fumarate) 10.2 Gm Hfa.aer.ad 2 Puff IH BID Ventolin Hfa Inhaler (Albuterol Sulfate) 18 Gm Hfa.aer.ad 2 Puff INH QID Vitals/I & O Vital Sign - Last 24 Hours 11/26/19 11/26/19 11/26/19 11/26/19 16:47 19:50 20:00 20:40 Temp 98.0 98.0 Pulse 50 Resp 21 B/P (MAP) 178/57 (97) Pulse Ox 94 95 96 O2 Delivery Room Air Room Air Room Air Room Air 11/26/19 11/26/19 11/26/19 11/26/19 20:41 20:44 20:45 20:45 Pulse 50 50 50 B/P (MAP) 178/57 178/57 178/57 Pulse Ox 96 O2 Delivery Room Air 11/26/19 11/27/19 11/27/19 11/27/19 23:34 03:00 04:20 07:00 Temp 98.1 97.7 97.7 98.1 97.7 97.7 Pulse 54 50 54 Resp 21 20 16 B/P (MAP) 173/77 (109) 169/76 (107) 163/50 (87) Pulse Ox 94 98 94 O2 Delivery Room Air Room Air Room Air Room Air 11/27/19 11/27/19 11/27/19 11/27/19 07:51 08:00 08:43 08:44 Pulse 54 54 B/P (MAP) 163/50 163/50 Pulse Ox 95 O2 Delivery Room Air Room Air 8/3011/27/19 11/27/19 11/27/19 08:44 09:00 11:20 11:51 Temp 97.1 97.1 Pulse 54 48 54 Resp 16 B/P (MAP) 163/50 157/49 (85) Pulse Ox 94 94 O2 Delivery Room Air Room Air 11/27/19 15:15 Temp 98.2 98.2 Pulse 55 Resp 18 B/P (MAP) 148/43 (78) Pulse Ox 96 O2 Delivery Room Air Intake and Output 11/26/19 11/26/19 11/27/19 15:00 23:00 07:00 Intake Total 200 ml 300 ml 100 ml Output Total 100 ml Balance 200 ml 200 ml 100 ml Justifications for Admission Other Justification SANDRA JOHNSTON MD Nov 27, 2019 15:30
[2019-11-27] MEDS ORDERED: predniSONE 10 MG TABLET PO ONE ×2 (15:45→22:00)
[2019-11-27 19:29] VITALS: BP 188/81
[2019-11-27] MEDS: MEROPENEM 500 MG in IV NORMAL SALINE 50ML 50 ML IV SCH (20:45)
[2019-11-27] MEDS: SIMVASTATIN 20 MG TABLET PO SCH (20:46)
[2019-11-27] MEDS ORDERED: MEROPENEM 500 MG VIAL IV SCH (21:00)
[2019-11-27 23:12] VITALS: BP 186/79
[2019-11-28] VITALS (19 sets, daily range): BP systolic 88–190; BP diastolic 50–104
[2019-11-28] MEDS ORDERED: LABETALOL 20 MG/4 ML DISP.SYRIN. IVP PRN (05:00)
[2019-11-28] MEDS ORDERED: amLODIPine BESYLATE 5 MG TABLET PO ONE (05:30)
[2019-11-28 06:40] LABS: BASO % 0 % (0-3); EOS % 0 % (0-3); HEMATOCRIT 25.5 % (39.0-53.0); HEMOGLOBIN 8.5 g/dL (13.0-17.5); LYMPH # 0.2 x10^3/uL (1.0-4.8); LYMPH % 10 % (24-48); MEAN CORPUSCULAR HEMOGLOBIN 32 pg (25-35); MEAN CORPUSCULAR HGB CONC 33 g/dL (31-37); MEAN CORPUSCULAR VOLUME 97 fL (79-100); MONO % 2 % (0-9); NEUT % 88 % (31-73); PLATELET COUNT 182 x10^3/uL (140-400); RED BLOOD COUNT 2.63 x10^6/uL (4.30-5.70); WHITE BLOOD COUNT 2.3 x10^3/uL (4.0-11.0)
[2019-11-28 07:26] LABS: ALBUMIN/GLOBULIN RATIO 0.6 (1.0-1.7); CALCIUM 7.5 mg/dL (8.5-10.1); CREATININE 4.1 mg/dL (0.7-1.3); GFR 14.2; POTASSIUM 4.2 mmol/L (3.5-5.1); TOTAL BILIRUBIN 0.3 mg/dL (0.2-1.0); TOTAL PROTEIN 5.5 g/dL (6.4-8.2)
[2019-11-28] MEDS ORDERED: predniSONE 10 MG TABLET PO ONE (07:30)
[2019-11-28] MEDS: ALBUTEROL SULFATE 2.5 MG/3 ML NEBU. NEB SCH ×4 (07:59→19:43)
[2019-11-28] MEDS: BUDESONIDE 0.5 MG/2 ML NEBU. NEB SCH ×2 (07:59→19:43)
[2019-11-28] MEDS ORDERED: IV NORMAL SALINE 1000ML BAG 1,000 ML IV PRN ×2 (08:22)
[2019-11-28] MEDS ORDERED: DIALYSIS PATIENT. MC PRN ×2 (08:30)
[2019-11-28] MEDS ORDERED: diphenhydrAMINE 50 MG/ML VIAL IV PRN ×2 (08:30)
[2019-11-28] MEDS ORDERED: ALBUMIN HUMAN 25% 200 ML IV PRN (08:30)
[2019-11-28] MEDS: LOSARTAN POTASSIUM 25 MG TABLET. PO SCH (08:53)
[2019-11-28] MEDS: amLODIPine BESYLATE 5 MG TABLET PO SCH ×2 (08:54→20:27)
[2019-11-28] MEDS: buPROPion XL 150 MG TAB.ER.24H. PO SCH (08:54)
[2019-11-28] MEDS: ISOSORBIDE MONONITRATE ER 30 MG TAB.ER.24H PO SCH ×2 (08:54→20:26)
--- NOTE | 2019-11-28 09:55 | PDOC ---
DATE OF SERVICE DATE: 11/28/19 TIME: 11:55 SUBJECTIVE ROS s/p cardiac cath earlier today OBJECTIVE Vital Signs Vital Signs Date Time Temp Pulse Resp B/P (MAP) Pulse Ox O2 Delivery O2 Flow Rate FiO2 11/28/19 08:54 70 178/73 11/28/19 08:01 95 Room Air 11/28/19 06:14 98.7 18 98.7 I & 0 Intake and Output 11/28/19 07:00 Intake Total 1320 ml Output Total 300 ml Balance 1020 ml Intake Oral 1320 ml Output Urine Total 300 ml # Voids 2 PHYSICAL EXAM Physical Exam GENERAL: NAD HEENT: Pupils equally round, reactive. Normal conjunctivae. Oropharynx pink and moist. No lesions seen. NECK: Supple. LUNGS: Clear to auscultation. No accessory muscle use. HEART: S1 and S2. ABDOMEN: Obese, soft, less tender, diffuse. No guarding. EXTREMITIES: No gross edema or cyanosis. LUE-AV fistula - good thrill and Bruit SKIN: Warm to touch. Denies rash. NEUROLOGIC: Alert and answers questions appropriately. DIAGNOSIS/ASSESSMENT Assessment & Plan ESRD on HD TTS No indication for HD today Chest Pain- s/p Cath this morning Severe single-vessel coronary artery disease, critical 99% ostial lesion and 80% mid segment lesion in the dominant right coronary artery. PCI/drug-eluting stents placement to the right coronary artery. Repeat 2D echo in 3 months to evaluate the need for AICD implantation. 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 Was dced with central line and daily Meropenem thru 11/22 COPD Hypertension-per cardiology h/o prostate cancer Tobaccoism COMMENT/RELEVANT DATA Meds Current Medications Medications (Trade) Dose Ordered Sig/Diane Start Time Stop Time Status Last Admin Dose Admin Acetaminophen (Tylenol) 650 mg PRN Q4HRS PRN 11/26/19 11:45 Acetaminophen/ Hydrocodone Bitart (Lortab 5/325) 1 tab PRN Q8HRS PRN 11/26/19 12:00 Albumin Human 200 ml @ 200 mls/hr 1X PRN PRN 11/28/19 08:30 11/28/19 14:29 UNV Albuterol Sulfate (Ventolin Neb Soln) 2.5 mg RTQID 11/26/19 16:00 11/28/19 07:59 2.5 MG Alprazolam (Xanax) 0.5 mg PRN Q6HRS PRN 11/26/19 12:00 11/27/19 00:42 0.5 MG Amlodipine Besylate (Norvasc) 5 mg 1X ONCE 11/28/19 05:30 11/28/19 05:31 DC 11/28/19 05:01 5 MG Budesonide (Pulmicort) 0.5 mg RTBID 11/26/19 20:00 11/28/19 07:59 0.5 MG Bupropion HCl (Wellbutrin Xl) 150 mg QAM 11/27/19 09:00 11/28/19 08:54 150 MG Diphenhydramine HCl (Benadryl) 25 mg 1X PRN PRN 11/28/19 08:30 11/29/19 08:29 UNV Docusate Sodium (Colace) 100 mg PRN BID PRN 11/26/19 11:45 Fish Oil (Fish Oil) 1,000 mg BID 11/26/19 21:00 11/27/19 20:46 1,000 MG Guaifenesin (Robitussin) 200 mg PRN Q4HRS PRN 11/26/19 11:45 Heparin Sodium (Porcine) (Heparin Sodium) 1,950 unit PRN Q6HRS PRN 11/26/19 10:45 Heparin Sodium/ Dextrose 250 ml @ 9.396 mls/ hr CONT PRN 11/26/19 10:45 11/26/19 12:42 9.396 MLS/HR Info (Anti-Coagulation Monitoring By Pharmacy) 1 each PRN DAILY PRN 11/27/19 07:45 11/27/19 07:45 1 EACH Info (PHARMACY MONITORING -- do not chart) 1 each PRN DAILY PRN 11/28/19 08:30 UNV Isosorbide Mononitrate (Imdur) 30 mg BID 11/26/19 21:00 11/28/19 08:54 30 MG Labetalol HCl (Normodyne Iv Push) 10 mg PRN Q2HR PRN 11/28/19 05:00 Lactobacillus Rhamnosus (Culturelle) 1 cap BID 11/26/19 21:00 11/27/19 20:45 1 CAP Lidocaine HCl (Xylocaine-Mpf 1% 2ml Vial) 2 ml 1X ONCE 11/26/19 14:00 11/26/19 14:01 DC 11/26/19 14:09 2 ML Lorazepam (Ativan) 0.5 mg PRN Q4HRS PRN 11/26/19 11:45 11/28/19 03:25 0.5 MG Losartan Potassium (Cozaar) 25 mg DAILY 11/27/19 09:00 11/28/19 08:53 25 MG Meropenem (Merrem) 500 mg QHS 11/27/19 21:00 UNV Meropenem 500 mg/ Sodium Chloride 50 ml @ 100 mls/hr QHS 11/27/19 21:00 11/27/19 20:45 100 MLS/HR Metoprolol Tartrate (Lopressor) 50 mg BID 11/26/19 21:00 11/27/19 10:53 DC 11/26/19 20:45 50 MG Morphine Sulfate (Morphine Sulfate) 2 mg PRN Q2HR PRN 11/26/19 10:45 11/28/19 03:32 2 MG Ondansetron HCl (Zofran) 4 mg PRN Q4HRS PRN 11/26/19 11:45 Pantoprazole Sodium (Protonix) 40 mg BIDWMEALS 11/26/19 17:00 11/27/19 17:03 40 MG Prednisone (Prednisone) 30 mg 1X ONCE 11/28/19 07:30 11/28/19 07:31 DC 11/28/19 08:54 30 MG Simvastatin (Zocor) 30 mg HS 11/26/19 21:00 11/27/19 20:46 30 MG Sodium Chloride 1,000 ml @ 400 mls/hr Q2H30M PRN 11/28/19 08:22 11/28/19 20:21 UNV Sodium Chloride (Normal Saline Flush) 3 ml QSHIFT PRN 11/26/19 11:45 Sucralfate (Carafate) 1 gm QIDACHS 11/26/19 16:30 11/27/19 17:03 1 GM Tamsulosin HCl (Flomax) 0.4 mg BID 11/26/19 21:00 11/27/19 20:46 0.4 MG Vitamin B Complex/ Vitamin C (Mandi-Debbie) 1 tab DAILY 11/27/19 09:00 11/27/19 08:44 1 TAB Vitamin D (Vitamin D3) 2,000 unit DAILY 11/27/19 09:00 11/27/19 08:43 2,000 UNIT Lab Laboratory Tests Test 11/28/19 06:10 White Blood Count 2.3 x10^3/uL (4.0-11.0) Red Blood Count 2.63 x10^6/uL (4.30-5.70) Hemoglobin 8.5 g/dL (13.0-17.5) Hematocrit 25.5 % (39.0-53.0) Mean Corpuscular Volume 97 fL (79-100) Mean Corpuscular Hemoglobin 32 pg (25-35) Mean Corpuscular Hemoglobin Concent 33 g/dL (31-37) Red Cell Distribution Width 15.0 % (11.5-14.5) Platelet Count 182 x10^3/uL (140-400) Neutrophils (%) (Auto) 88 % (31-73) Lymphocytes (%) (Auto) 10 % (24-48) Monocytes (%) (Auto) 2 % (0-9) Eosinophils (%) (Auto) 0 % (0-3) Basophils (%) (Auto) 0 % (0-3) Neutrophils # (Auto) 2.0 x10^3/uL (1.8-7.7) Lymphocytes # (Auto) 0.2 x10^3/uL (1.0-4.8) Monocytes # (Auto) 0.0 x10^3/uL (0.0-1.1) Eosinophils # (Auto) 0.0 x10^3/uL (0.0-0.7) Basophils # (Auto) 0.0 x10^3/uL (0.0-0.2) Heparin Anti-Xa Act, Unfractionated 0.31 IU/mL (0.30-0.70) Sodium Level 137 mmol/L (136-145) Potassium Level 4.2 mmol/L (3.5-5.1) Chloride Level 102 mmol/L (98-107) Carbon Dioxide Level 27 mmol/L (21-32) Anion Gap 8 (6-14) Blood Urea Nitrogen 33 mg/dL (8-26) Creatinine 4.1 mg/dL (0.7-1.3) Estimated GFR (Cockcroft-Gault) 14.2 BUN/Creatinine Ratio 8 (6-20) Glucose Level 142 mg/dL (70-99) Calcium Level 7.5 mg/dL (8.5-10.1) Total Bilirubin 0.3 mg/dL (0.2-1.0) Aspartate Amino Transf (AST/SGOT) 23 U/L (15-37) Alanine Aminotransferase (ALT/SGPT) 26 U/L (16-63) Alkaline Phosphatase 100 U/L (46-116) Total Protein 5.5 g/dL (6.4-8.2) Albumin 2.0 g/dL (3.4-5.0) Albumin/Globulin Ratio 0.6 (1.0-1.7) Results All relevant outside records, renal labs, imaging studies, telemetry/EKG's were reviewed. Justicifation of Admission Dx: Justifications for Admission: Justification of Admission Dx: Yes JEWEL CARMONA MD Nov 28, 2019 09:55
[2019-11-28] MEDS ORDERED: LIDOCAINE 1% PF 2 ML VIAL. ONE (10:01)
[2019-11-28] MEDS ORDERED: IODIXANOL 320 MG/ML 100 ML VIAL. ONE ×2 (10:01→10:53)
[2019-11-28] MEDS ORDERED: methylPREDNISolone SOD SUCC PF 125 MG/2 ML VIAL. ONE (10:17)
[2019-11-28] MEDS ORDERED: fentaNYL PF VIAL 100 MCG/2 ML VIAL ONE (10:17)
[2019-11-28] MEDS ORDERED: MIDAZOLAM HCL/PF 2 MG/2 ML VIAL. ONE ×2 (10:17→10:47)
[2019-11-28] MEDS ORDERED: FAMOTIDINE 20 MG/2 ML VIAL ONE (10:17)
[2019-11-28] MEDS ORDERED: VERAPAMIL 5 MG/2 ML VIAL. ONE (10:18)
[2019-11-28] MEDS ORDERED: HEPARIN for IV BOLUS 10,000 UNIT/10 ML VIAL. ONE (10:18)
[2019-11-28] MEDS ORDERED: diphenhydrAMINE 50 MG/ML VIAL ONE ×2 (10:18→11:18)
[2019-11-28 10:19] LABS: % LYMPHS 11 % (24-48); % SEGS 89 % (35-66); PLT ESTIMATE ADEQUATE (ADEQUATE)
[2019-11-28] MEDS ORDERED: NITROGLYCERIN 200 MCG/2 ML SYRINGE FOR CATH/VASC LAB. ONE (10:19)
[2019-11-28 10:20] LABS: ANISOCYTOSIS SLIGHT
--- NOTE | 2019-11-28 10:21 | PDOC ---
MODERATE SEDATION ASSESSMENT RISKS/ALTERNATIVES Risks/Alternatives Risks and alternatives of this type of sedation and procedure discussed with: RISK/ALTERNATIVES: Patient H & P ON CHART H & P H & P on chart and reviewed for co-morbid conditions and appropriate labs. H&P ON CHART: Yes STATUS PREG STATUS ASSESSED: N/A MEDS/ALLERGIES REVIEWED Meds/Allergies Reviewed Medications and Allergies including time and route of recently administered narcotics and sedatives. MEDS/ALLERGIES REVIEWED: Yes ASA RATING ASA RATING: III AIRWAY ASSESSMENT Airway Assessment Airway patency, oral function limitations, presence of caps, crowns, dentures, partials, and ability to extend neck assessed. AIRWAY ASSESSMENT: Yes MALLAMPATI SCORE MALLAMPATI SCORE: II PRE-SEDATION ASSESSMENT PRE-SEDATION ASSESSMENT: Yes JADE MYRICK MD Nov 28, 2019 10:20
[2019-11-28] MEDS ORDERED: BIVALIRUDIN 250 MG VIAL. IV ONE ×3 (10:48→11:12)
[2019-11-28] MEDS ORDERED: LIDOCAINE 1% PF 2 ML VIAL. INJ ONE (11:00)
[2019-11-28] MEDS ORDERED: methylPREDNISolone SOD SUCC PF 125 MG/2 ML VIAL. IV ONE (11:00)
[2019-11-28] MEDS ORDERED: HEPARIN for IV BOLUS 10,000 UNIT/10 ML VIAL. IART ONE (11:00)
[2019-11-28] MEDS ORDERED: IODIXANOL 320 MG/ML 100 ML VIAL. IART ONE (11:00)
[2019-11-28] MEDS ORDERED: CONTRAST GIVEN. MC PRN (11:00)
[2019-11-28] MEDS ORDERED: VERAPAMIL 5 MG/2 ML VIAL. IART ONE (11:00)
[2019-11-28] MEDS ORDERED: diphenhydrAMINE 50 MG/ML VIAL IVP ONE ×2 (11:00→11:30)
[2019-11-28] MEDS ORDERED: NITROGLYCERIN 200 MCG/2 ML SYRINGE FOR CATH/VASC LAB. IART ONE ×4 (11:00→11:30)
[2019-11-28] MEDS ORDERED: FAMOTIDINE 20 MG/2 ML VIAL IVP ONE (11:00)
[2019-11-28] MEDS ORDERED: MIDAZOLAM HCL/PF 2 MG/2 ML VIAL. IV ONE ×2 (11:00→11:15)
[2019-11-28] MEDS ORDERED: fentaNYL PF VIAL 100 MCG/2 ML VIAL IV ONE (11:00)
--- NOTE | 2019-11-28 11:09 | PDOC ---
PROGRESS NOTES Date of Service: DATE: 11/28/19 TIME: 11:09 Chief Complaint Chief Complaint VTE Prophylaxis Ordered VTE Prophylaxis Devices: Yes VTE Pharmacological Prophylaxi: Yes Assessment/Plan Assessment/Plan impression acute NSTEMI chronic renal failure anemia, azotemia. 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 Small nodule along the fissure on the right, Fleischner Society guidelines recommend an optional one-year follow-up for I risk individuals. Granulomatous ossifications. Sclerotic or possibly blastic lesion T7 correlation with any history of prostate cancer would be of benefit. recent PET scan No suspicious uptake at the T7 sclerotic lesion. This finding may possibly represent a bone island. No other suspicious sclerotic lesions. MRI of the thoracic spine without and with contrast may be performed for more definitive assessment if desired. Tracer uptake in the spine is heterogeneous. No definite increased tracer uptake localizes to the T7 vertebral body. Suggest correlation withPSA. ECHO 03/14The left ventricular systolic function is low normal. The ejection fraction is estimated at 50% mild to moderate mitral regurgitatio mild to moderate tricuspid regurgitation. PA pressure was estimated at 44 mmHg. C/W MOD PULM HTN 11/16 ECHO Ejection Fraction is estimated at 35%.moderate global hypokinesis.moderate mitral valve regurgitation.tricuspid regurgitation with an estimated PAP of 48 mmHg. apnea-hypopnea syndrome. Severe single-vessel coronary artery disease, critical 99% ostial lesion and 80% mid segment lesion in the dominant right coronary artery. 11/27 PLAN ADMIT CVC trend troponin i Consult cardiology heparin per cardiology Consult Nephrology for dialysis management. Full code. P.r.n. Tylenol, p.r.n. Zofran, home meds, DVT prophylaxis on heparin drip . 11/27 catheterization 11/26 Peak troponin of 6.5 38 MIN pt exam, chart review, > 50% of time spent with exam, chart review, pt care coordination Justifications for Admission Justifications for Admission Other Justification History of Present Illness History of Present Illness Identification/Chief Complaint Chief Complaint Mr Leal 79 yo M w/ PMHx ESRD, HTN, smoker who presents NSTEMI FROM [facility] ER He came in by EMS. 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 Endocrine: Hyperparathyroidism Past Surgical History Past Surgical History: Hernia Repair Family History Family History: Coronary Artery Disease, Hypertension Social History Smoke: No ALCOHOL: none Drugs: None Current Medications Current Medications Vitals Vitals Vital Signs Date Time Temp Pulse Resp B/P (MAP) Pulse Ox O2 Delivery O2 Flow Rate FiO2 11/28/19 11:00 12 96 Nasal Cannula 2.0 11/28/19 11:00 72 11/28/19 08:54 178/73 11/28/19 06:14 98.7 98.7 Physical Exam General: Alert, Oriented X3, Cooperative, No acute distress Heart: Regular rate Lungs: Clear Abdomen: Normal bowel sounds, No tenderness Extremities: No clubbing, No cyanosis Skin: No rashes, No breakdown, No significant lesion Labs LABS Heart Failure Heart Failure: Yes If Yes, Newly Diagnosed: No If Yes, HF Type: Systolic If Yes, NYHA Class: Class II PROCEDURE NARRATIVE After explaining the risks, benefits and alternative options, informed consent was obtained from patient. Patient was brought to the cardiac Entomology Professor and right wrist was prepped and draped in the usual fashion after confirming a positive modified Moreno's test. Arterial access was obtained in the right radial artery and a 6 Lebanese sheath was inserted. 6 Lebanese Curtis catheter was used to perform selective angiography of the left and right coronary arteries. LVEDP and transaortic gradients were measured. Left ventriculography was not performed due to contrast load used for the procedure and availability of recent 2D echo that showed LVEF 35%. The following findings were noted. FINDINGS 1. Hemodynamics: Left ventricular end-diastolic pressure of 15 mmHg. No pullback gradient across the aortic valve. 2. Coronary angiography: a. The left main coronary artery arose from the left sinus of Valsalva, gave rise to the left anterior descending and left circumflex arteries and did not show any significant stenosis. b. The left anterior descending artery showed 40% stenosis in the midsegment. c. The left circumflex artery showed 30% stenosis in the proximal segment of second obtuse marginal branch. d. The right coronary artery was a large and dominant vessel arising from the right sinus of Valsalva that showed critical 99% stenosis in the ostial segment and 80% stenosis in the midsegment. INTERVENTION The right coronary artery was engaged with a 6 Lebanese JR4 guide with sideholes. The stenoses in the ostial and mid segments were crossed with a 0.014 inch [employer] pro-water guidewire. This was predilated with a 2.5 x 12 mm Euphora balloon. The mid segment stenosis was treated with a 3.0 x 18 mm resolute Yves drug- eluting stent. Follow-up angiography showed plaque shift resulting in 50 to 60% stenosis at the distal edge of the stent. This was treated with an overlapping 3.0 x 12 mm resolute [place] drug-eluting stent. Subsequently, the ostial segment stenosis was treated with a 3.0 x 15 mm resolute [place] drug-eluting stent. Follow-up angiography showed resolution of all the lesions to 0% with FAINA-3 distal flow. Patient tolerated the procedure well. Hemostasis was achieved using TR band. There were no immediate complications. FAINA Flow FAINA Flow (Pre-Intervention): FAINA-1 FAINA Flow (Post-Intervention): FAINA-3 Conclusion 1. Severe single-vessel coronary artery disease, critical 99% ostial lesion and 80% mid segment lesion in the dominant right coronary artery. Nonobstructive lesions noted in LAD and LCx as described above. 2. Successful complex PCI/drug-eluting stents placement to the right coronary artery. Recommendations 1. Aspirin 81 mg daily (patient on triple therapy due to atrial fibrillation) 2. Plavix 75 mg daily 3. Cardiovascular risk factor modification and cardiac rehabilitation referral 4. Repeat 2D echo in 3 months to evaluate the need for AICD implantation. Signed by : Jade Mazariegos, Electronically Approved : 11/28/2019 11:42:49 DICTATED and SIGNED BY: JADE MAZARIEGOS MD DATE: 11/28/19 1134 Laboratory Tests Test 11/28/19 06:10 White Blood Count 2.3 x10^3/uL (4.0-11.0) Red Blood Count 2.63 x10^6/uL (4.30-5.70) Hemoglobin 8.5 g/dL (13.0-17.5) Hematocrit 25.5 % (39.0-53.0) Mean Corpuscular Volume 97 fL (79-100) Mean Corpuscular Hemoglobin 32 pg (25-35) Mean Corpuscular Hemoglobin Concent 33 g/dL (31-37) Red Cell Distribution Width 15.0 % (11.5-14.5) Platelet Count 182 x10^3/uL (140-400) Neutrophils (%) (Auto) 88 % (31-73) Lymphocytes (%) (Auto) 10 % (24-48) Monocytes (%) (Auto) 2 % (0-9) Eosinophils (%) (Auto) 0 % (0-3) Basophils (%) (Auto) 0 % (0-3) Neutrophils # (Auto) 2.0 x10^3/uL (1.8-7.7) Lymphocytes # (Auto) 0.2 x10^3/uL (1.0-4.8) Monocytes # (Auto) 0.0 x10^3/uL (0.0-1.1) Eosinophils # (Auto) 0.0 x10^3/uL (0.0-0.7) Basophils # (Auto) 0.0 x10^3/uL (0.0-0.2) Segmented Neutrophils % 89 % (35-66) Lymphocytes % 11 % (24-48) Platelet Estimate Adequate (ADEQUATE) Basophilic Stippling Present Anisocytosis Slight Heparin Anti-Xa Act, Unfractionated 0.31 IU/mL (0.30-0.70) Sodium Level 137 mmol/L (136-145) Potassium Level 4.2 mmol/L (3.5-5.1) Chloride Level 102 mmol/L (98-107) Carbon Dioxide Level 27 mmol/L (21-32) Anion Gap 8 (6-14) Blood Urea Nitrogen 33 mg/dL (8-26) Creatinine 4.1 mg/dL (0.7-1.3) Estimated GFR (Cockcroft-Gault) 14.2 BUN/Creatinine Ratio 8 (6-20) Glucose Level 142 mg/dL (70-99) Calcium Level 7.5 mg/dL (8.5-10.1) Total Bilirubin 0.3 mg/dL (0.2-1.0) Aspartate Amino Transf (AST/SGOT) 23 U/L (15-37) Alanine Aminotransferase (ALT/SGPT) 26 U/L (16-63) Alkaline Phosphatase 100 U/L (46-116) Total Protein 5.5 g/dL (6.4-8.2) Albumin 2.0 g/dL (3.4-5.0) Albumin/Globulin Ratio 0.6 (1.0-1.7) Comment Review of Relevant I have reviewed the following items karey (where applicable) has been applied. Labs Laboratory Tests Test 11/26/19 11:45 11/26/19 12:00 11/26/19 18:00 11/27/19 04:50 Sodium Level 141 mmol/L (136-145) Potassium Level 4.4 mmol/L (3.5-5.1) Chloride Level 103 mmol/L (98-107) Carbon Dioxide Level 31 mmol/L (21-32) Anion Gap 7 (6-14) Blood Urea Nitrogen 35 mg/dL (8-26) Creatinine 4.2 mg/dL (0.7-1.3) Estimated GFR (Cockcroft-Gault) 13.8 BUN/Creatinine Ratio 8 (6-20) Glucose Level 79 mg/dL (70-99) Calcium Level 7.4 mg/dL (8.5-10.1) Total Bilirubin 0.5 mg/dL (0.2-1.0) Aspartate Amino Transf (AST/SGOT) 40 U/L (15-37) Alanine Aminotransferase (ALT/SGPT) 30 U/L (16-63) Alkaline Phosphatase 98 U/L (46-116) Total Protein 5.3 g/dL (6.4-8.2) Albumin 2.2 g/dL (3.4-5.0) Albumin/Globulin Ratio 0.7 (1.0-1.7) White Blood Count 4.2 x10^3/uL (4.0-11.0) 4.0 x10^3/uL (4.0-11.0) Red Blood Count 2.82 x10^6/uL (4.30-5.70) 2.60 x10^6/uL (4.30-5.70) Hemoglobin 9.1 g/dL (13.0-17.5) 8.6 g/dL (13.0-17.5) Hematocrit 27.7 % (39.0-53.0) 25.3 % (39.0-53.0) Mean Corpuscular Volume 98 fL (79-100) 98 fL (79-100) Mean Corpuscular Hemoglobin 32 pg (25-35) 33 pg (25-35) Mean Corpuscular Hemoglobin Concent 33 g/dL (31-37) 34 g/dL (31-37) Red Cell Distribution Width 15.4 % (11.5-14.5) 15.1 % (11.5-14.5) Platelet Count 215 x10^3/uL (140-400) 203 x10^3/uL (140-400) Prothrombin Time 14.8 SEC (11.7-14.0) Prothromb Time International Ratio 1.2 (0.8-1.1) Activated Partial Thromboplast Time 36 SEC (24-38) Heparin Anti-Xa Act, Unfractionated 0.70 IU/mL (0.30-0.70) 0.48 IU/mL (0.30-0.70) 0.36 IU/mL (0.30-0.70) Troponin I Quantitative 6.522 ng/mL (0.000-0.055) 2.556 ng/mL (0.000-0.055) Neutrophils (%) (Auto) 58 % (31-73) Lymphocytes (%) (Auto) 24 % (24-48) Monocytes (%) (Auto) 13 % (0-9) Eosinophils (%) (Auto) 4 % (0-3) Basophils (%) (Auto) 1 % (0-3) Neutrophils # (Auto) 2.3 x10^3/uL (1.8-7.7) Lymphocytes # (Auto) 1.0 x10^3/uL (1.0-4.8) Monocytes # (Auto) 0.5 x10^3/uL (0.0-1.1) Eosinophils # (Auto) 0.2 x10^3/uL (0.0-0.7) Basophils # (Auto) 0.0 x10^3/uL (0.0-0.2) Test 11/27/19 05:00 11/28/19 06:10 Sodium Level 138 mmol/L (136-145) 137 mmol/L (136-145) Potassium Level 3.9 mmol/L (3.5-5.1) 4.2 mmol/L (3.5-5.1) Chloride Level 102 mmol/L (98-107) 102 mmol/L (98-107) Carbon Dioxide Level 30 mmol/L (21-32) 27 mmol/L (21-32) Anion Gap 6 (6-14) 8 (6-14) Blood Urea Nitrogen 24 mg/dL (8-26) 33 mg/dL (8-26) Creatinine 3.3 mg/dL (0.7-1.3) 4.1 mg/dL (0.7-1.3) Estimated GFR (Cockcroft-Gault) 18.3 14.2 Glucose Level 80 mg/dL (70-99) 142 mg/dL (70-99) Calcium Level 7.5 mg/dL (8.5-10.1) 7.5 mg/dL (8.5-10.1) Magnesium Level 1.9 mg/dL (1.8-2.4) White Blood Count 2.3 x10^3/uL (4.0-11.0) Red Blood Count 2.63 x10^6/uL (4.30-5.70) Hemoglobin 8.5 g/dL (13.0-17.5) Hematocrit 25.5 % (39.0-53.0) Mean Corpuscular Volume 97 fL (79-100) Mean Corpuscular Hemoglobin 32 pg (25-35) Mean Corpuscular Hemoglobin Concent 33 g/dL (31-37) Red Cell Distribution Width 15.0 % (11.5-14.5) Platelet Count 182 x10^3/uL (140-400) Neutrophils (%) (Auto) 88 % (31-73) Lymphocytes (%) (Auto) 10 % (24-48) Monocytes (%) (Auto) 2 % (0-9) Eosinophils (%) (Auto) 0 % (0-3) Basophils (%) (Auto) 0 % (0-3) Neutrophils # (Auto) 2.0 x10^3/uL (1.8-7.7) Lymphocytes # (Auto) 0.2 x10^3/uL (1.0-4.8) Monocytes # (Auto) 0.0 x10^3/uL (0.0-1.1) Eosinophils # (Auto) 0.0 x10^3/uL (0.0-0.7) Basophils # (Auto) 0.0 x10^3/uL (0.0-0.2) Segmented Neutrophils % 89 % (35-66) Lymphocytes % 11 % (24-48) Platelet Estimate Adequate (ADEQUATE) Basophilic Stippling Present Anisocytosis Slight Heparin Anti-Xa Act, Unfractionated 0.31 IU/mL (0.30-0.70) BUN/Creatinine Ratio 8 (6-20) Total Bilirubin 0.3 mg/dL (0.2-1.0) Aspartate Amino Transf (AST/SGOT) 23 U/L (15-37) Alanine Aminotransferase (ALT/SGPT) 26 U/L (16-63) Alkaline Phosphatase 100 U/L (46-116) Total Protein 5.5 g/dL (6.4-8.2) Albumin 2.0 g/dL (3.4-5.0) Albumin/Globulin Ratio 0.6 (1.0-1.7) Laboratory Tests Test 11/28/19 06:10 White Blood Count 2.3 x10^3/uL (4.0-11.0) Red Blood Count 2.63 x10^6/uL (4.30-5.70) Hemoglobin 8.5 g/dL (13.0-17.5) Hematocrit 25.5 % (39.0-53.0) Mean Corpuscular Volume 97 fL (79-100) Mean Corpuscular Hemoglobin 32 pg (25-35) Mean Corpuscular Hemoglobin Concent 33 g/dL (31-37) Red Cell Distribution Width 15.0 % (11.5-14.5) Platelet Count 182 x10^3/uL (140-400) Neutrophils (%) (Auto) 88 % (31-73) Lymphocytes (%) (Auto) 10 % (24-48) Monocytes (%) (Auto) 2 % (0-9) Eosinophils (%) (Auto) 0 % (0-3) Basophils (%) (Auto) 0 % (0-3) Neutrophils # (Auto) 2.0 x10^3/uL (1.8-7.7) Lymphocytes # (Auto) 0.2 x10^3/uL (1.0-4.8) Monocytes # (Auto) 0.0 x10^3/uL (0.0-1.1) Eosinophils # (Auto) 0.0 x10^3/uL (0.0-0.7) Basophils # (Auto) 0.0 x10^3/uL (0.0-0.2) Segmented Neutrophils % 89 % (35-66) Lymphocytes % 11 % (24-48) Platelet Estimate Adequate (ADEQUATE) Basophilic Stippling Present Anisocytosis Slight Heparin Anti-Xa Act, Unfractionated 0.31 IU/mL (0.30-0.70) Sodium Level 137 mmol/L (136-145) Potassium Level 4.2 mmol/L (3.5-5.1) Chloride Level 102 mmol/L (98-107) Carbon Dioxide Level 27 mmol/L (21-32) Anion Gap 8 (6-14) Blood Urea Nitrogen 33 mg/dL (8-26) Creatinine 4.1 mg/dL (0.7-1.3) Estimated GFR (Cockcroft-Gault) 14.2 BUN/Creatinine Ratio 8 (6-20) Glucose Level 142 mg/dL (70-99) Calcium Level 7.5 mg/dL (8.5-10.1) Total Bilirubin 0.3 mg/dL (0.2-1.0) Aspartate Amino Transf (AST/SGOT) 23 U/L (15-37) Alanine Aminotransferase (ALT/SGPT) 26 U/L (16-63) Alkaline Phosphatase 100 U/L (46-116) Total Protein 5.5 g/dL (6.4-8.2) Albumin 2.0 g/dL (3.4-5.0) Albumin/Globulin Ratio 0.6 (1.0-1.7) Medications Current Medications Morphine Sulfate (Morphine Sulfate) 2 mg PRN Q2HR PRN IV PAIN Last administered on 11/28/19at 03:32; Start 11/26/19 at 10:45 Heparin Sodium/ Dextrose 250 ml @ 9.396 mls/ hr CONT PRN IV PER PROTOCOL Last administered on 11/26/19at 12:42; Start 11/26/19 at 10:45 Heparin Sodium (Porcine) (Heparin Sodium) 1,950 unit PRN Q6HRS PRN IV FOR UFH LEVEL LESS THAN 0.2; Start 11/26/19 at 10:45 Sodium Chloride (Normal Saline Flush) 3 ml QSHIFT PRN IV AFTER MEDS AND BLOOD DRAWS; Start 11/26/19 at 11:45 Ondansetron HCl (Zofran) 4 mg PRN Q4HRS PRN IV NAUSEA/VOMITING; Start 11/26/19 at 11:45 Acetaminophen (Tylenol) 650 mg PRN Q4HRS PRN PO TEMP OVER 100.4F OR MILD PAIN; Start 11/26/19 at 11:45 Docusate Sodium (Colace) 100 mg PRN BID PRN PO HARD STOOLS; Start 11/26/19 at 11:45 Albuterol Sulfate (Ventolin Neb Soln) 2.5 mg PRN Q4HRS PRN NEB SHORTNESS OF BREATH; Start 11/26/19 at 11:45 Guaifenesin (Robitussin) 200 mg PRN Q4HRS PRN PO COUGH; Start 11/26/19 at 11:45 Lorazepam (Ativan) 0.5 mg PRN Q4HRS PRN PO ANXIETY / AGITATION Last administered on 11/28/19at 03:25; Start 11/26/19 at 11:45 Alprazolam (Xanax) 0.5 mg PRN Q6HRS PRN PO ANXIETY / AGITATION Last administered on 11/27/19at 00:42; Start 11/26/19 at 12:00 Amlodipine Besylate (Norvasc) 5 mg BID PO Last administered on 11/28/19at 08:54; Start 11/26/19 at 21:00 Bupropion HCl (Wellbutrin Xl) 150 mg QAM PO Last administered on 11/28/19at 08:54; Start 11/27/19 at 09:00 Diphenhydramine HCl (Benadryl) 50 mg PRN Q6HRS PRN PO itching; Start 11/26/19 at 12:00 Vitamin B Complex/ Vitamin C (Mandi-Debbie) 1 tab DAILY PO Last administered on 11/27/19at 08:44; Start 11/27/19 at 09:00 Acetaminophen/ Hydrocodone Bitart (Lortab 5/325) 1 tab PRN Q8HRS PRN PO PAIN; Start 11/26/19 at 12:00 Isosorbide Mononitrate (Imdur) 30 mg BID PO Last administered on 11/28/19at 0 8:54; Start 11/26/19 at 21:00 Lactobacillus Rhamnosus (Culturelle) 1 cap BID PO Last administered on 11/27/19 20:45; Start 11/26/19 at 21:00 Losartan Potassium (Cozaar) 25 mg DAILY PO Last administered on 11/28/19 08:53; Start 11/27/19 at 09:00 Metoprolol Tartrate (Lopressor) 50 mg BID PO Last administered on 11/26/19 20:45; Start 11/26/19 at 21:00; Stop 11/27/19 at 10:53; Status DC Pantoprazole Sodium (Protonix) 40 mg BIDWMEALS PO Last administered on 11/27/19 17:03; Start 11/26/19 at 17:00 Simvastatin (Zocor) 30 mg HS PO Last administered on 11/27/19 20:46; Start 11/26/19 at 21:00 Sucralfate (Carafate) 1 gm QIDACHS PO Last administered on 11/27/19 17:03; Start 11/26/19 at 16:30 Tamsulosin HCl (Flomax) 0.4 mg BID PO Last administered on 11/27/19 20:46; Start 11/26/19 at 21:00 Albuterol Sulfate (Ventolin Neb Soln) 2.5 mg RTQID NEB Last administered on 11/28/19 07:59; Start 11/26/19 at 16:00 Vitamin D (Vitamin D3) 2,000 unit DAILY PO Last administered on 11/27/19 08:43; Start 11/27/19 at 09:00 Fish Oil (Fish Oil) 1,000 mg BID PO Last administered on 11/27/19 20:46; Start 11/26/19 at 21:00 Budesonide (Pulmicort) 0.5 mg RTBID NEB Last administered on 11/28/19 07:59; Start 11/26/19 at 20:00 Sodium Chloride 1,000 ml @ 1,000 mls/hr Q1H PRN IV hypotension; Start 11/26/19 at 13:17; Stop 11/26/19 at 19:16; Status DC Albumin Human 200 ml @ 200 mls/hr 1X PRN PRN IV Hypotension; Start 11/26/19 at 13:30; Stop 11/26/19 at 19:29; Status DC Sodium Chloride 1,000 ml @ 400 mls/hr Q2H30M PRN IV PATENCY; Start 11/26/19 at 13:17; Stop 11/27/19 at 01:16; Status DC Info (PHARMACY MONITORING -- do not chart) 1 each PRN DAILY PRN MC SEE COMMENTS; Start 11/26/19 at 13:30 Info (PHARMACY MONITORING -- do not chart) 1 each PRN DAILY PRN MC SEE COMMENTS; Start 11/26/19 at 13:30 Lidocaine HCl (Xylocaine-Mpf 1% 2ml Vial) 2 ml 1X ONCE ID Last administered on 11/26/19at 14:09; Start 11/26/19 at 14:00; Stop 11/26/19 at 14:01; Status DC Info (Anti-Coagulation Monitoring By Pharmacy) 1 each PRN DAILY PRN MC SEE COM MENTS Last administered on 11/27/19at 07:45; Start 11/27/19 at 07:45 Prednisone (Prednisone) 30 mg 1X ONCE PO Last administered on 11/27/19at 17:03; Start 11/27/19 at 15:45; Stop 11/27/19 at 15:46; Status DC Prednisone (Prednisone) 30 mg 1X ONCE PO Last administered on 11/27/19at 23:50; Start 11/27/19 at 22:00; Stop 11/27/19 at 22:01; Status DC Prednisone (Prednisone) 30 mg 1X ONCE PO Last administered on 11/28/19at 08:54; Start 11/28/19 at 07:30; Stop 11/28/19 at 07:31; Status DC Meropenem (Merrem) 500 mg QHS IV ; Start 11/27/19 at 21:00; Status UNV Meropenem 500 mg/ Sodium Chloride 50 ml @ 100 mls/hr QHS IV Last administered on 11/27/19at 20:45; Start 11/27/19 at 21:00 Amlodipine Besylate (Norvasc) 5 mg 1X ONCE PO Last administered on 11/28/19at 05:01; Start 11/28/19 at 05:30; Stop 11/28/19 at 05:31; Status DC Labetalol HCl (Normodyne Iv Push) 10 mg PRN Q2HR PRN IVP HYPERTENSION SBP>160; Start 11/28/19 at 05:00 Sodium Chloride 1,000 ml @ 1,000 mls/hr Q1H PRN IV hypotension; Start 11/28/19 at 08:22; Stop 11/28/19 at 14:21; Status UNV Albumin Human 200 ml @ 200 mls/hr 1X PRN PRN IV Hypotension; Start 11/28/19 at 08:30; Stop 11/28/19 at 14:29; Status UNV Diphenhydramine HCl (Benadryl) 25 mg 1X PRN PRN IV ITCHING; Start 11/28/19 at 08:30; Stop 11/29/19 at 08:29; Status UNV Diphenhydramine HCl (Benadryl) 25 mg 1X PRN PRN IV ITCHING; Start 11/28/19 at 08:30; Stop 11/29/19 at 08:29; Status UNV Sodium Chloride 1,000 ml @ 400 mls/hr Q2H30M PRN IV PATENCY; Start 11/28/19 at 08:22; Stop 11/28/19 at 20:21; Status UNV Info (PHARMACY MONITORING -- do not chart) 1 each PRN DAILY PRN MC SEE COMMENTS; Start 11/28/19 at 08:30; Status UNV Info (PHARMACY MONITORING -- do not chart) 1 each PRN DAILY PRN MC SEE COMMENTS; Start 11/28/19 at 08:30; Status UNV Lidocaine HCl (Xylocaine-Mpf 1% 2ml Vial) 2 ml STK-MED ONCE .ROUTE ; Start 11/28/19 at 10:01; Stop 11/28/19 at 10:01; Status DC Iodixanol (Visipaque 320) 100 ml STK-MED ONCE .ROUTE ; Start 11/28/19 at 10:01; Stop 11/28/19 at 10:01; Status DC Heparin Sodium/ Sodium Chloride 1,000 ml @ As Directed STK-MED ONCE .ROUTE ; Start 11/28/19 at 10:01; Stop 11/28/19 at 10:02; Status DC Methylprednisolone Sodium Succinate (SOLU-Medrol 125MG VIAL) 125 mg STK-MED ONCE .ROUTE ; Start 11/28/19 at 10:17; Stop 11/28/19 at 10:17; Status DC Fentanyl Citrate (Fentanyl 2ml Vial) 100 mcg STK-MED ONCE .ROUTE ; Start 11/28/19 at 10:17; Stop 11/28/19 at 10:17; Status DC Midazolam HCl (Versed) 2 mg STK-MED ONCE .ROUTE ; Start 11/28/19 at 10:17; Stop 11/28/19 at 10:18; Status DC Famotidine (Pepcid Vial) 20 mg STK-MED ONCE .ROUTE ; Start 11/28/19 at 10:17; Stop 11/28/19 at 10:18; Status DC Diphenhydramine HCl (Benadryl) 50 mg STK-MED ONCE .ROUTE ; Start 11/28/19 at 10:18; Stop 11/28/19 at 10:18; Status DC Heparin Sodium (Porcine) (Heparin Sodium) 10,000 unit STK-MED ONCE .ROUTE ; Start 11/28/19 at 10:18; Stop 11/28/19 at 10:19; Status DC Verapamil HCl (Verapamil) 5 mg STK-MED ONCE .ROUTE ; Start 11/28/19 at 10:18; Stop 11/28/19 at 10:19; Status DC Nitroglycerin (Nitroglycerin) 200 mcg STK-MED ONCE .ROUTE ; Start 11/28/19 at 10:19; Stop 11/28/19 at 10:19; Status DC Midazolam HCl (Versed) 2 mg STK-MED ONCE .ROUTE ; Start 11/28/19 at 10:47; Stop 11/28/19 at 10:48; Status DC Bivalirudin (Angiomax) 250 mg STK-MED ONCE IV ; Start 11/28/19 at 10:48; Stop 11/28/19 at 10:48; Status DC Iodixanol (Visipaque 320) 100 ml STK-MED ONCE .ROUTE ; Start 11/28/19 at 10:53; Stop 11/28/19 at 10:53; Status DC Nitroglycerin (Nitroglycerin) 200 mcg 1X ONCE IART Last administered on 11/28/19at 11:00; Start 11/28/19 at 11:00; Stop 11/28/19 at 11:02; Status DC Verapamil HCl (Verapamil) 2.5 mg 1X ONCE IART Last administered on 11/28/19at 11:00; Start 11/28/19 at 11:00; Stop 11/28/19 at 11:02; Status DC Heparin Sodium (Porcine) (Heparin Sodium) 2,500 unit 1X ONCE IART ; Start 11/28/19 at 11:00; Stop 11/28/19 at 11:02; Status DC Heparin Sodium/ Sodium Chloride (HEPARIN for ARTERIAL LINE FLUSH) 1,000 unit 1X ONCE IART Last administered on 11/28/19at 11:00; Start 11/28/19 at 11:00; Stop 11/28/19 at 11:02; Status DC Heparin Sodium/ Sodium Chloride (HEPARIN for ARTERIAL LINE FLUSH) 1,000 unit 1X ONCE IART Last administered on 11/28/19at 11:00; Start 11/28/19 at 11:00; Stop 11/28/19 at 11:02; Status DC Midazolam HCl (Versed) 2 mg 1X ONCE IV Last administered on 11/28/19at 11:00; Start 11/28/19 at 11:00; Stop 11/28/19 at 11:02; Status DC Fentanyl Citrate (Fentanyl 2ml Vial) 100 mcg 1X ONCE IV Last administered on 11/28/19at 11:00; Start 11/28/19 at 11:00; Stop 11/28/19 at 11:02; Status DC Iodixanol (Visipaque 320) 100 ml 1X ONCE IART ; Start 11/28/19 at 11:00; Stop 11/28/19 at 11:02; Status DC Bivalirudin (Angiomax) 250 mg 1X ONCE IV Last administered on 11/28/19at 11:00; Start 11/28/19 at 11:00; Stop 11/28/19 at 11:02; Status DC Lidocaine HCl (Xylocaine-Mpf 1% 2ml Vial) 2 ml 1X ONCE INJ Last administered on 11/28/19at 11:00; Start 11/28/19 at 11:00; Stop 11/28/19 at 11:02; Status DC Diphenhydramine HCl (Benadryl) 50 mg 1X ONCE IVP Last administered on 11/28/19at 10:29; Start 11/28/19 at 11:00; Stop 11/28/19 at 11:02; Status DC Methylprednisolone Sodium Succinate (SOLU-Medrol 125MG VIAL) 125 mg 1X ONCE IV Last administered on 11/28/19at 10:29; Start 11/28/19 at 11:00; Stop 11/28/19 at 11:02; Status DC Famotidine (Pepcid Vial) 20 mg 1X ONCE IVP Last administered on 11/28/19at 10:29; Start 11/28/19 at 11:00; Stop 11/28/19 at 11:02; Status DC Info (CONTRAST GIVEN -- Rx MONITORING) 1 each PRN DAILY PRN MC SEE COMMENTS; Start 11/28/19 at 11:00; Stop 11/30/19 at 10:59 Nitroglycerin (Nitroglycerin) 200 mcg 1X ONCE IART ; Start 11/28/19 at 11:15; Stop 11/28/19 at 11:16; Status UNV Midazolam HCl (Versed) 2 mg 1X ONCE IV ; Start 11/28/19 at 11:15; Stop 11/28/19 at 11:16; Status UNV Active Scripts Active Culturelle (Lactobacillus Rhamnosus Gg) 1 Each Cap.sprink 1 Cap PO BID 30 Days Metoprolol Tartrate 50 Mg Tablet 50 Mg PO BID 90 Days Merrem (Meropenem) 500 Mg Vial 500 Mg IV QHS 7 Days [place] 5-325 Tablet (Acetaminophen/Hydrocodone Bitart) 1 Each Tablet 1 Tab PO Q6- 8HRS PRN 6 Days Reported Amlodipine Besylate 5 Mg Tablet 5 Mg PO BID Losartan Potassium 25 Mg Tablet 25 Mg PO DAILY Do not take prior to going to dialysis Fish Oil 1,000 mg Softgel ([place]-3/Dha/Epa/Fish Oil) 1,000 Mg Capsule 1,000 Mg P O DAILY Next dose tomorrow 11/16 Sucralfate 1 Gm Tablet 1 Gm PO QID Next dose tonight 11/15 Vitamin D3 (Cholecalciferol (Vitamin D3)) 10 Mcg Tablet 2,000 Units PO DAILY Next dose tomorrow 11/16 Mandi-Debbie Tablet (Folic Acid/Vitamin B Comp W-C) 0.8 Mg Tablet 0.8 Mg PO DAILY Next dose tomorrow 11/16 Isosorbide Mononitrate Er (Isosorbide Mononitrate) 30 Mg Tab.er.24h 30 Mg PO BID Next dose tonight 11/15 Eliquis (Apixaban) 2.5 Mg Tablet 2.5 Mg PO BID Next dose tonight 11/15 Benadryl (Diphenhydramine Hcl) 25 Mg Capsule 50 Mg PO PRN Q6HRS PRN Xanax (Alprazolam) 0.5 Mg Tablet 0.5 Mg PO PRN Q6HRS PRN Flomax (Tamsulosin Hcl) 0.4 Mg Cap.er.24h 0.4 Mg PO BID Next dose ton11/15 Simvastatin 20 Mg Tablet 30 Mg PO HS Next dose tonight 11/15 Pantoprazole Sodium (Pantoprazole Sodium) 40 Mg Tablet.dr 40 Mg PO BID Next dose tomorrow 11/16 Bupropion Xl (Bupropion Hcl) 150 Mg Tab.er.24h 150 Mg PO QAM Next dose tomorrow 11/16 Symbicort 160-4.5 Mcg Inhaler (Budesonide/Formoterol Fumarate) 10.2 Gm Hfa.aer.ad 2 Puff IH BID Ventolin Hfa Inhaler (Albuterol Sulfate) 18 Gm Hfa.aer.ad 2 Puff INH QID Vitals/I & O Vital Sign - Last 24 Hours 11/27/19 11/27/19 11/27/19 11/27/19 11:20 11:51 15:15 16:14 Temp 97.1 98.2 97.1 98.2 Pulse 54 55 Resp 16 18 B/P (MAP) 157/49 (85) 148/43 (78) Pulse Ox 94 94 96 97 O2 Delivery Room Air Room Air Room Air Room Air 11/27/19 11/27/19 11/27/19 11/27/19 19:29 20:00 20:32 20:45 Temp 98.1 98.1 Pulse 58 58 Resp 18 B/P (MAP) 188/81 (116) 188/81 Pulse Ox 99 94 O2 Delivery Room Air Room Air Room Air 11/27/19 11/27/19 11/28/19 11/28/19 20:46 23:12 03:13 03:48 Temp 98.3 98.0 98.3 98.0 Pulse 58 75 73 Resp 18 18 B/P (MAP) 188/81 186/79 (114) 168/104 (125) 190/82 (118) Pulse Ox 90 94 O2 Delivery Room Air Room Air 8/31/20 11/28/19 11/28/19 11/28/19 04:42 05:01 05:05 05:40 Pulse 73 B/P (MAP) 188/83 (118) 188/83 180/73 (108) 175/73 (107) 11/28/19 11/28/19 11/28/19 11/28/19 06:14 08:00 08:01 08:53 Temp 98.7 98.7 Pulse 70 70 Resp 18 B/P (MAP) 178/73 (108) 178/73 Pulse Ox 99 95 O2 Delivery Room Air Room Air Room Air 11/28/19 11/28/19 11/28/19 11/28/19 08:54 08:54 11:00 11:00 Pulse 70 70 72 Resp 12 B/P (MAP) 178/73 178/73 Pulse Ox 96 O2 Delivery Nasal Cannula O2 Flow Rate 2.0 Intake and Output 11/27/19 11/27/19 11/28/19 15:00 23:00 07:00 Intake Total 320 ml 400 ml 600 ml Output Total 300 ml Balance 320 ml 400 ml 300 ml Justicifation of Admission Dx: Justifications for Admission: Justification of Admission Dx: Yes TANVIR CARRASCO MD Nov 28, 2019 11:09
[2019-11-28] MEDS ORDERED: CLOPIDOGREL BISULFATE 75 MG TABLET PO ONE (11:15)
[2019-11-28] MEDS ORDERED: ASPIRIN 325 MG TABLET PO ONE (11:15)
--- NOTE | 2019-11-28 11:19 | CONS ---
DATE OF CONSULTATION: 11/28/2019 REFERRING PHYSICIAN: Josafat Parmar MD REASON FOR CONSULTATION: Antibiotic management. 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 He had a minimally elevated troponin. He was placed on heparin and transferred to [place]. He denied any fevers, chills, nausea, vomiting, diarrhea, abdominal pain, symptoms. He is tolerating meropenem well. Currently, the patient is comfortable. Denies any chest pain, shortness of breath, headache, sore throat, nausea, vomiting, diarrhea, abdominal pain, symptoms. The patient is awaiting cardiac cath later today. White count was 4.2, hemoglobin of 9.1, platelets of 215, creatinine was 4.2. The patient has CKD. Troponin was elevated. The patient underwent chest x-ray, which showed moderate congestive heart failure with small bilateral pleural effusion, right-sided internal jugular vein line in place from last admission. PAST MEDICAL HISTORY: Chronic kidney disease; on hemodialysis, COPD, tobaccoism, hypertension, CHF, AAA, cardiomyopathy, hyperlipidemia, atrial flutter, Rios esophagitis, colon polyp, hemorrhoids, hernia, gastroesophageal reflux, history of prostate cancer, arthritis, depression, anxiety, anemia, hyperparathyroidism. PAST SURGICAL HISTORY: AV fistula creation, left inguinal hernia repair, cataract extraction, endoscopy. FAMILY HISTORY: As per HPI. 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 No pets. Smoking: None. Alcohol: None. Drugs: None. CURRENT MEDICATIONS: Meropenem. Other medications reviewed in the medication list. ALLERGIES: REGADENOSON, IODINATED CONTRAST MEDIA, NITROFURANTOIN, BUMETANIDE, CHLOROTHIAZIDE, FINASTERIDE, FUROSEMIDE, DUTASTERIDE, SPIRONOLACTONE, NONSTEROIDALS. REVIEW OF SYSTEMS: Negative except for above in HPI. PHYSICAL EXAMINATION: VITAL SIGNS: Temperature 98.7, pulse 70, respiratory rate 18, blood pressure 178/73, oxygen saturation 95% on room air. GENERAL: Alert, oriented x 3 male, lying in bed comfortably, in no acute distress. HEENT: Normocephalic, atraumatic. Anicteric. NECK: Supple. No JVD. LUNGS: Clear bilaterally. No wheezing. HEART: S1, S2. No gallops or murmurs. ABDOMEN: Soft, nontender, nondistended. No rebound. No guarding. EXTREMITIES: No edema. No cyanosis. Left upper extremity AV fistula unremarkable. DERMATOLOGIC: Warm, dry. No generalized rash. NEUROLOGIC: Alert. Answers questions appropriately. Right neck line clean. LABORATORY DATA: WBC 2.3; was 4.0, hemoglobin 8.5, hematocrit 25.5, platelets 182. Sodium 137, potassium 4.2, chloride 102, bicarb 27, BUN 33, creatinine 4.1, glucose 142, calcium 7.5. LFTs normal. Total protein 5.5, albumin 2.2. MICROBIOLOGY: Blood culture, 11/10/2019, positive for Burkholderia cepacia, minocycline sensitive, ceftazidime sensitive, Levaquin sensitive, meropenem sensitive, trimethoprim sensitive. Repeat blood cultures negative from 11/13/2019 and 11/14/2019. IMAGING: Chest x-ray as above. IMPRESSION: 1. Chest pain, probably non-ST elevation myocardial infarction, awaiting cardiac catheterization later today. 2. Chronic kidney disease, on hemodialysis. 3. History of atrial fibrillation, cardiomyopathy. 4. 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 Repeat blood cultures negative. Currently on meropenem. 5. Hyperlipidemia. 6. Leukopenia, could be drug induced, less likely from meropenem. 7. Chronic anemia. RECOMMENDATIONS: 1. Continue meropenem. 2. Awaiting cardiac cath later today. 3. Follow up WBC closely. 4. Continue supportive care. 5. Continue line management. Thank you for allowing me to participate in this patient's care. If you have any questions, do not hesitate to contact me. VERO LERNER MD DR: ALEJANDRA/stephanie JOB#: [id number] / [id number]
[2019-11-28] MEDS: SUCRALFATE 1 GM TABLET. PO SCH ×4 (11:30→20:40)
--- NOTE | 2019-11-28 11:43 | CARD ---
MR#: [id number] Date of Study: 11/28/2019 Ordering Physician: JADE MAZARIEGOS, Referring Physician: JADE MAZARIEGOS, Tech: Judith Saucedo APPROVED REPORT Technologist: Judith Saucedo Nurse: Johanny Atkins Procedure(s) performed: 1. Left heart catheterization, selective coronary angiography via right concepcion sradial approach 2. Successful complex PCI/DARREN placement to the right coronary artery fl time: 14.7 mins dose: 184 gycm2 contrast: 233 ml moderate sedation: 56 MIN INDICATION The indication(s) include : non-STEMI . [facility] Clinical Frailty Scale [facility] Clinical Frailty Scale: Mildly Frail Heart Failure Heart Failure: Yes If Yes, Newly Diagnosed: No If Yes, HF Type: Systolic If Yes, NYHA Class: Class II PROCEDURE NARRATIVE After explaining the risks, benefits and alternative options, informed consent was obtained from robb ent. Patient was brought to the cardiac [facility] and right wrist was prepped and draped in the usual fashion after confirming a positive modified Moreno's test. Arterial access was obtained in the righ t radial artery and a 6 [place] Zealander sheath was inserted. 6 [place]ander Curtis catheter was used to perform paula ective angiography of the left and right coronary arteries. LVEDP and transaortic gradients were christina sured. Left ventriculography was not performed due to contrast load used for the procedure and avail ability of recent 2D echo that showed LVEF 35%. The following findings were noted. FINDINGS 1. Hemodynamics: Left ventricular end-diastolic pressure of 15 mmHg. No pullback gradient across th e aortic valve. 2. Coronary angiography: a. The left main coronary artery arose from the left sinus of Valsalva, gave rise to the left anteri or descending and left circumflex arteries and did not show any significant stenosis. b. The left anterior descending artery showed 40% stenosis in the midsegment. c. The left circumflex artery showed 30% stenosis in the proximal segment of second obtuse marginal branch. d. The right coronary artery was a large and dominant vessel arising from the right sinus of Valsalv a that showed critical 99% stenosis in the ostial segment and 80% stenosis in the midsegment. INTERVENTION The right coronary artery was engaged with a 6 New Zealander JR4 guide with sideholes. The stenoses in the ostial and mid segments were crossed with a 0.014 inch [employer] pro-water guidewire. This was predilate d with a 2.5 x 12 mm Euphora balloon. The mid segment stenosis was treated with a 3.0 x 18 mm resolu te Yves drug-eluting stent. Follow-up angiography showed plaque shift resulting in 50 to 60% stenosi s at the distal edge of the stent. This was treated with an overlapping 3.0 x [address] ug-eluting stent. Subsequently, the ostial segment stenosis was treated with a 3.0 x 15 mm resolute Distant drug-eluting stent. Follow-up angiography showed resolution of all the lesions to 0% with FAINA- 3 distal flow. Patient tolerated the procedure well. Hemostasis was achieved using TR band. There were no immediate complications. FAINA Flow FAINA Flow (Pre-Intervention): FAINA-1 FAINA Flow (Post-Intervention): FAINA-3 Conclusion 1. Severe single-vessel coronary artery disease, critical 99% ostial lesion and 80% mid segment lesi on in the dominant right coronary artery. Nonobstructive lesions noted in LAD and LCx as described a ernestine. 2. Successful complex PCI/drug-eluting stents placement to the right coronary artery. Recommendations 1. Aspirin 81 mg daily (patient on triple therapy due to atrial fibrillation) 2. Plavix 75 mg daily 3. Cardiovascular risk factor modification and cardiac rehabilitation referral 4. Repeat 2D echo in 3 months to evaluate the need for AICD implantation. Signed by : Jade Mazariegos, Electronically Approved : 11/28/2019 11:42:49
[2019-11-28] MEDS ORDERED: ACETAMINOPHEN 325 MG TABLET. PO PRN (11:45)
[2019-11-28] MEDS: OMEGA-3 FATTY ACIDS/FISH OIL 1,000 MG CAPSULE. PO SCH ×2 (12:20→20:26)
[2019-11-28] MEDS: LACTOBACILLUS RHAMNOSUS GG 1 CAPSULE. PO SCH ×2 (12:20→20:26)
[2019-11-28] MEDS: FOLIC/VIT B COMP W-C (RENAL) TABLET. PO SCH (12:20)
[2019-11-28] MEDS: CHOLECALCIFEROL (VITAMIN D3) 1,000 UNIT TABLET PO SCH (12:20)
[2019-11-28] MEDS: PANTOPRAZOLE 40 MG TABLET.DR. PO SCH ×2 (12:20→17:29)
[2019-11-28] MEDS: TAMSULOSIN 0.4 MG CAP.ER.24H. PO SCH ×2 (12:21→20:26)
--- NOTE | 2019-11-28 12:54 | NUR ---
SS following for discharge planning. SS reviewed pt chart and discussed with pt RN. Pt is from home with spouse and is currently on room air. Pt had heart cath today. SS will continue to follow for discharge planning.
[2019-11-28] MEDS: METOPROLOL TART IMMED RELEASE 25 MG TABLET. PO SCH ×2 (17:57→20:28)
[2019-11-28] MEDS: ALPRAZolam 0.5 MG TABLET PO PRN (20:26)
[2019-11-28] MEDS: MEROPENEM 500 MG in IV NORMAL SALINE 50ML 50 ML IV SCH (20:40)
[2019-11-28] MEDS ORDERED: ATORVASTATIN CALCIUM 20 MG TABLET PO SCH (21:00)
[2019-11-28] MEDS ORDERED: METOPROLOL TART IMMED RELEASE 25 MG TABLET. PO SCH (21:00)
[2019-11-29 03:15] VITALS: BP 137/56
[2019-11-29 06:29] LABS: ALBUMIN 2.2 g/dL (3.4-5.0); CALCIUM 7.4 mg/dL (8.5-10.1); GFR 11.3; PHOSPHORUS 5.7 mg/dL (2.6-4.7); POTASSIUM 4.6 mmol/L (3.5-5.1)
[2019-11-29] MEDS: ALPRAZolam 0.5 MG TABLET PO PRN ×2 (06:57→13:34)
[2019-11-29 07:00] VITALS: BP 157/74
[2019-11-29] MEDS: SUCRALFATE 1 GM TABLET. PO SCH ×2 (07:30→11:30)
[2019-11-29] MEDS ORDERED: ALBUMIN HUMAN 25% 200 ML IV PRN (08:00)
[2019-11-29] MEDS ORDERED: CLOPIDOGREL BISULFATE 75 MG TABLET PO SCH (08:00)
[2019-11-29] MEDS ORDERED: ASPIRIN ENTERIC COATED 81 MG TABLET.DR. PO SCH (08:00)
[2019-11-29] MEDS ORDERED: IV NORMAL SALINE 1000ML BAG 1,000 ML IV PRN ×2 (08:00)
[2019-11-29] MEDS ORDERED: DIALYSIS PATIENT. MC PRN ×2 (08:00)
--- NOTE | 2019-11-29 08:02 | PDOC ---
Infectious Disease Note Subjective: Subjective Pt confused since cardiac cath yesterday alert awake denies any complaints no f/n/v/d/sob or chestpain Vital Signs: Vital Signs Vital Signs Date Time Temp Pulse Resp B/P (MAP) Pulse Ox O2 Delivery O2 Flow Rate FiO2 11/29/19 03:15 97.8 89 18 137/56 (83) 98 Room Air 97.8 11/28/19 16:15 2.0 Physical Exam: PHYSICAL EXAM GENERAL: Alert, oriented x 3 male, lying in bed comfortably, in no acute distress. HEENT: Normocephalic, atraumatic. Anicteric. NECK: Supple. No JVD. LUNGS: Clear bilaterally. No wheezing. HEART: S1, S2. No gallops or murmurs. ABDOMEN: Soft, nontender, nondistended. No rebound. No guarding. EXTREMITIES: No edema. No cyanosis. Left upper extremity AV fistula unremarkable. DERMATOLOGIC: Warm, dry. No generalized rash. NEUROLOGIC: Alert. Answers questions appropriately. Right neck line clean. Medications: Inpatient Meds: Current Medications Medications (Trade) Dose Ordered Sig/Diane Start Time Stop Time Status Last Admin Dose Admin Acetaminophen (Tylenol) 650 mg PRN Q6HRS PRN 11/28/19 11:45 Acetaminophen/ Hydrocodone Bitart (Lortab 5/325) 1 tab PRN Q8HRS PRN 11/26/19 12:00 Albumin Human 200 ml @ 200 mls/hr 1X PRN PRN 11/28/19 08:30 11/28/19 14:29 UNV Albuterol Sulfate (Ventolin Neb Soln) 2.5 mg RTQID 11/26/19 16:00 11/28/19 19:43 2.5 MG Alprazolam (Xanax) 0.5 mg PRN Q6HRS PRN 11/26/19 12:00 11/29/19 06:57 0.5 MG Amlodipine Besylate (Norvasc) 5 mg 1X ONCE 11/28/19 05:30 11/28/19 05:31 DC 11/28/19 05:01 5 MG Aspirin (Alison Aspirin) 325 mg 1X ONCE 11/28/19 11:15 11/28/19 11:34 DC 11/28/19 11:15 325 MG Aspirin (Ecotrin) 81 mg DAILYWBKFT 11/29/19 08:00 Atorvastatin Calcium (Lipitor) 40 mg QHS 11/28/19 21:00 11/28/19 20:28 40 MG Bivalirudin (Angiomax) 250 mg STK-MED ONCE 11/28/19 11:12 11/28/19 11:12 DC Budesonide (Pulmicort) 0.5 mg RTBID 11/26/19 20:00 11/28/19 19:43 0.5 MG Bupropion HCl (Wellbutrin Xl) 150 mg QAM 11/27/19 09:00 11/28/19 08:54 150 MG Clopidogrel Bisulfate (Plavix) 75 mg DAILYWBKFT 11/29/19 08:00 Diphenhydramine HCl (Benadryl) 50 mg 1X ONCE 11/28/19 11:30 11/28/19 11:34 DC 11/28/19 11:30 50 MG Docusate Sodium (Colace) 100 mg PRN BID PRN 11/26/19 11:45 Famotidine (Pepcid Vial) 20 mg 1X ONCE 11/28/19 11:00 11/28/19 11:02 DC 11/28/19 10:29 20 MG Fentanyl Citrate (Fentanyl 2ml Vial) 100 mcg 1X ONCE 11/28/19 11:00 11/28/19 11:02 DC 11/28/19 11:00 100 MCG Fish Oil (Fish Oil) 1,000 mg BID 11/26/19 21:00 11/28/19 20:26 1,000 MG Guaifenesin (Robitussin) 200 mg PRN Q4HRS PRN 11/26/19 11:45 Heparin Sodium (Porcine) (Heparin Sodium) 2,500 unit 1X ONCE 11/28/19 11:00 11/28/19 11:02 DC 11/28/19 11:00 2,500 UNIT Heparin Sodium/ Dextrose 250 ml @ 9.396 mls/ hr CONT PRN 11/26/19 10:45 11/28/19 11:35 DC 11/26/19 12:42 9.396 MLS/HR Heparin Sodium/ Sodium Chloride (HEPARIN for ARTERIAL LINE FLUSH) 1,000 unit 1X ONCE 11/28/19 11:00 11/28/19 11:02 DC 11/28/19 11:00 1,000 UNIT Info (Anti-Coagulation Monitoring By Pharmacy) 1 each PRN DAILY PRN 11/27/19 07:45 11/27/19 07:45 1 EACH Info (CONTRAST GIVEN -- Rx MONITORING) 1 each PRN DAILY PRN 11/28/19 11:00 11/30/19 10:59 Info (PHARMACY MONITORING -- do not chart) 1 each PRN DAILY PRN 11/28/19 08:30 UNV Iodixanol (Visipaque 320) 100 ml 1X ONCE 11/28/19 11:00 11/28/19 11:02 DC 11/28/19 11:00 233 ML Isosorbide Mononitrate (Imdur) 30 mg BID 11/26/19 21:00 11/28/19 20:26 30 MG Labetalol HCl (Normodyne Iv Push) 10 mg PRN Q2HR PRN 11/28/19 05:00 Lactobacillus Rhamnosus (Culturelle) 1 cap BID 11/26/19 21:00 11/28/19 20:26 1 CAP Lidocaine HCl (Xylocaine-Mpf 1% 2ml Vial) 2 ml 1X ONCE 11/28/19 11:00 11/28/19 11:02 DC 11/28/19 11:00 1 ML Lorazepam (Ativan) 0.5 mg PRN Q4HRS PRN 11/26/19 11:45 11/28/19 03:25 0.5 MG Losartan Potassium (Cozaar) 25 mg DAILY 11/27/19 09:00 11/28/19 08:53 25 MG Meropenem (Merrem) 500 mg QHS 11/27/19 21:00 UNV Meropenem 500 mg/ Sodium Chloride 50 ml @ 100 mls/hr QHS 11/27/19 21:00 11/28/19 20:40 100 MLS/HR Methylprednisolone Sodium Succinate (SOLU-Medrol 125MG VIAL) 125 mg 1X ONCE 11/28/19 11:00 11/28/19 11:02 DC 11/28/19 10:29 125 MG Metoprolol Tartrate (Lopressor) 25 mg BID 11/28/19 18:00 11/28/19 20:28 25 MG Midazolam HCl (Versed) 2 mg 1X ONCE 11/28/19 11:15 11/28/19 11:16 DC 11/28/19 11:15 1 MG Morphine Sulfate (Morphine Sulfate) 2 mg PRN Q2HR PRN 11/26/19 10:45 11/28/19 03:32 2 MG Nitroglycerin (Nitroglycerin) 200 mcg 1X ONCE 11/28/19 11:30 11/28/19 11:34 DC 11/28/19 11:30 200 MCG Ondansetron HCl (Zofran) 4 mg PRN Q4HRS PRN 11/26/19 11:45 Pantoprazole Sodium (Protonix) 40 mg BIDWMEALS 11/26/19 17:00 11/28/19 17:29 40 MG Prednisone (Prednisone) 30 mg 1X ONCE 11/28/19 07:30 11/28/19 07:31 DC 11/28/19 08:54 30 MG Simvastatin (Zocor) 30 mg HS 11/26/19 21:00 11/28/19 11:34 DC 11/27/19 20:46 30 MG Sodium Chloride 1,000 ml @ 400 mls/hr Q2H30M PRN 11/28/19 08:22 11/28/19 20:21 UNV Sodium Chloride (Normal Saline Flush) 3 ml QSHIFT PRN 11/26/19 11:45 Sucralfate (Carafate) 1 gm QIDACHS 11/26/19 16:30 11/28/19 17:29 1 GM Tamsulosin HCl (Flomax) 0.4 mg BID 11/26/19 21:00 11/28/19 20:26 0.4 MG Verapamil HCl (Verapamil) 2.5 mg 1X ONCE 11/28/19 11:00 11/28/19 11:02 DC 11/28/19 11:00 2.5 MG Vitamin B Complex/ Vitamin C (Mandi-Debbie) 1 tab DAILY 11/27/19 09:00 11/28/19 12:20 1 TAB Vitamin D (Vitamin D3) 2,000 unit DAILY 11/27/19 09:00 11/28/19 12:20 2,000 UNIT Labs: Lab Laboratory Tests Test 11/29/19 05:40 Sodium Level 139 mmol/L (136-145) Potassium Level 4.6 mmol/L (3.5-5.1) Chloride Level 102 mmol/L (98-107) Carbon Dioxide Level 26 mmol/L (21-32) Anion Gap 11 (6-14) Blood Urea Nitrogen 42 mg/dL (8-26) Creatinine 5.0 mg/dL (0.7-1.3) Estimated GFR (Cockcroft-Gault) 11.3 Glucose Level 83 mg/dL (70-99) Calcium Level 7.4 mg/dL (8.5-10.1) Phosphorus Level 5.7 mg/dL (2.6-4.7) Albumin 2.2 g/dL (3.4-5.0) Objective: Assessment: 1. Chest pain, probably non-ST elevation myocardial infarction, awaiting cardiac catheterization later today. 2. Chronic kidney disease, on hemodialysis. 3. History of atrial fibrillation, cardiomyopathy. 4. 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 Repeat blood cultures negative. Currently on meropenem. 5. Hyperlipidemia. 6. Leukopenia, could be drug induced, less likely from meropenem. 7. Chronic anemia. t Plan: Plan of Care Continue meropenem. Follow up WBC closely. Continue supportive care. Continue line management VERO LERNER MD Nov 29, 2019 08:02
[2019-11-29] MEDS: BUDESONIDE 0.5 MG/2 ML NEBU. NEB SCH (08:03)
[2019-11-29] MEDS: ALBUTEROL SULFATE 2.5 MG/3 ML NEBU. NEB SCH ×2 (08:03→12:00)
[2019-11-29 09:21] LABS: BASO % 0 % (0-3); EOS % 0 % (0-3); HEMATOCRIT 27.1 % (39.0-53.0); LYMPH # 0.5 x10^3/uL (1.0-4.8); LYMPH % 7 % (24-48); MEAN CORPUSCULAR HEMOGLOBIN 33 pg (25-35); MEAN CORPUSCULAR HGB CONC 33 g/dL (31-37); MEAN CORPUSCULAR VOLUME 99 fL (79-100); MONO # 0.5 x10^3/uL (0.0-1.1); MONO % 7 % (0-9); NEUT # 6.7 x10^3/uL (1.8-7.7); NEUT % 87 % (31-73); PLATELET COUNT 216 x10^3/uL (140-400); RED BLOOD COUNT 2.75 x10^6/uL (4.30-5.70); RED CELL DISTRIBUTION WIDTH 15.3 % (11.5-14.5); WHITE BLOOD COUNT 7.8 x10^3/uL (4.0-11.0)
--- NOTE | 2019-11-29 09:24 | PDOC ---
DATE OF SERVICE DATE: 11/29/19 TIME: 09:23 SUBJECTIVE ROS s/p cardiac cath on 11/27 Somewhat restless/anxious this am priot to initiating dialysis Seen on HD, no acute complaints OBJECTIVE Vital Signs Vital Signs Date Time Temp Pulse Resp B/P (MAP) Pulse Ox O2 Delivery O2 Flow Rate FiO2 11/29/19 08:05 Room Air 11/29/19 07:00 97.8 66 18 157/74 (101) 95 97.8 11/28/19 16:15 2.0 I & 0 Intake and Output 11/29/19 07:00 Intake Total 1410 ml Output Total 400 ml Balance 1010 ml Intake Oral 1410 ml Output Urine Total 400 ml # Voids 1 PHYSICAL EXAM Physical Exam GENERAL: NAD HEENT: Anicteric, om moist NECK: Supple. LUNGS: Clear bilaterally. No wheezing. HEART: S1, S2. ABDOMEN: Soft, nontender, . EXTREMITIES: No edema. Left upper extremity AV fistula unremarkable. DERM: No generalized rash. NEUROLOGIC: Alert. Answers questions appropriately. DIAGNOSIS/ASSESSMENT Assessment & Plan ESRD on HD TTS seen on HD, tolerating well, Discussed treatment plan with patient safety coordinator Chest Pain- s/p Cath 11/27 Severe single-vessel coronary artery disease, critical 99% ostial lesion and 80% mid segment lesion in the dominant right coronary artery. PCI/drug-eluting stents placement to the right coronary artery. Repeat 2D echo in 3 months to evaluate the need for AICD implantation. 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 On Meropenem COPD Hypertension-per cardiology h/o prostate cancer Tobaccoism COMMENT/RELEVANT DATA Meds Current Medications Medications (Trade) Dose Ordered Sig/Diane Start Time Stop Time Status Last Admin Dose Admin Acetaminophen (Tylenol) 650 mg PRN Q6HRS PRN 11/28/19 11:45 Acetaminophen/ Hydrocodone Bitart (Lortab 5/325) 1 tab PRN Q8HRS PRN 11/26/19 12:00 Albumin Human 200 ml @ 200 mls/hr 1X PRN PRN 11/28/19 08:30 11/28/19 14:29 UNV Albuterol Sulfate (Ventolin Neb Soln) 2.5 mg RTQID 11/26/19 16:00 11/29/19 08:03 2.5 MG Alprazolam (Xanax) 0.5 mg PRN Q6HRS PRN 11/26/19 12:00 11/29/19 06:57 0.5 MG Amlodipine Besylate (Norvasc) 5 mg 1X ONCE 11/28/19 05:30 11/28/19 05:31 DC 11/28/19 05:01 5 MG Aspirin (Alison Aspirin) 325 mg 1X ONCE 11/28/19 11:15 11/28/19 11:34 DC 11/28/19 11:15 325 MG Aspirin (Ecotrin) 81 mg DAILYWBKFT 11/29/19 08:00 Atorvastatin Calcium (Lipitor) 40 mg QHS 11/28/19 21:00 11/28/19 20:28 40 MG Bivalirudin (Angiomax) 250 mg STK-MED ONCE 11/28/19 11:12 11/28/19 11:12 DC Budesonide (Pulmicort) 0.5 mg RTBID 11/26/19 20:00 11/29/19 08:03 0.5 MG Bupropion HCl (Wellbutrin Xl) 150 mg QAM 11/27/19 09:00 11/28/19 08:54 150 MG Clopidogrel Bisulfate (Plavix) 75 mg DAILYWBKFT 11/29/19 08:00 Diphenhydramine HCl (Benadryl) 50 mg 1X ONCE 11/28/19 11:30 11/28/19 11:34 DC 11/28/19 11:30 50 MG Docusate Sodium (Colace) 100 mg PRN BID PRN 11/26/19 11:45 Famotidine (Pepcid Vial) 20 mg 1X ONCE 11/28/19 11:00 11/28/19 11:02 DC 11/28/19 10:29 20 MG Fentanyl Citrate (Fentanyl 2ml Vial) 100 mcg 1X ONCE 11/28/19 11:00 11/28/19 11:02 DC 11/28/19 11:00 100 MCG Fish Oil (Fish Oil) 1,000 mg BID 11/26/19 21:00 11/28/19 20:26 1,000 MG Guaifenesin (Robitussin) 200 mg PRN Q4HRS PRN 11/26/19 11:45 Heparin Sodium (Porcine) (Heparin Sodium) 2,500 unit 1X ONCE 11/28/19 11:00 11/28/19 11:02 DC 11/28/19 11:00 2,500 UNIT Heparin Sodium/ Dextrose 250 ml @ 9.396 mls/ hr CONT PRN 11/26/19 10:45 11/28/19 11:35 DC 11/26/19 12:42 9.396 MLS/HR Heparin Sodium/ Sodium Chloride (HEPARIN for ARTERIAL LINE FLUSH) 1,000 unit 1X ONCE 11/28/19 11:00 11/28/19 11:02 DC 11/28/19 11:00 1,000 UNIT Info (Anti-Coagulation Monitoring By Pharmacy) 1 each PRN DAILY PRN 11/27/19 07:45 11/29/19 08:29 DC 11/27/19 07:45 1 EACH Info (CONTRAST GIVEN -- Rx MONITORING) 1 each PRN DAILY PRN 11/28/19 11:00 11/30/19 10:59 Info (PHARMACY MONITORING -- do not chart) 1 each PRN DAILY PRN 11/28/19 08:30 UNV Iodixanol (Visipaque 320) 100 ml 1X ONCE 11/28/19 11:00 11/28/19 11:02 DC 11/28/19 11:00 233 ML Isosorbide Mononitrate (Imdur) 30 mg BID 11/26/19 21:00 11/28/19 20:26 30 MG Labetalol HCl (Normodyne Iv Push) 10 mg PRN Q2HR PRN 11/28/19 05:00 Lactobacillus Rhamnosus (Culturelle) 1 cap BID 11/26/19 21:00 11/28/19 20:26 1 CAP Lidocaine HCl (Xylocaine-Mpf 1% 2ml Vial) 2 ml 1X ONCE 11/28/19 11:00 11/28/19 11:02 DC 11/28/19 11:00 1 ML Lorazepam (Ativan) 0.5 mg PRN Q4HRS PRN 11/26/19 11:45 11/28/19 03:25 0.5 MG Losartan Potassium (Cozaar) 25 mg DAILY 11/27/19 09:00 11/28/19 08:53 25 MG Meropenem (Merrem) 500 mg QHS 11/27/19 21:00 UNV Meropenem 500 mg/ Sodium Chloride 50 ml @ 100 mls/hr QHS 11/27/19 21:00 11/28/19 20:40 100 MLS/HR Methylprednisolone Sodium Succinate (SOLU-Medrol 125MG VIAL) 125 mg 1X ONCE 11/28/19 11:00 11/28/19 11:02 DC 11/28/19 10:29 125 MG Metoprolol Tartrate (Lopressor) 25 mg BID 11/28/19 18:00 11/28/19 20:28 25 MG Midazolam HCl (Versed) 2 mg 1X ONCE 11/28/19 11:15 11/28/19 11:16 DC 11/28/19 11:15 1 MG Morphine Sulfate (Morphine Sulfate) 2 mg PRN Q2HR PRN 11/26/19 10:45 11/28/19 03:32 2 MG Nitroglycerin (Nitroglycerin) 200 mcg 1X ONCE 11/28/19 11:30 11/28/19 11:34 DC 11/28/19 11:30 200 MCG Ondansetron HCl (Zofran) 4 mg PRN Q4HRS PRN 11/26/19 11:45 Pantoprazole Sodium (Protonix) 40 mg BIDWMEALS 11/26/19 17:00 11/28/19 17:29 40 MG Prednisone (Prednisone) 30 mg 1X ONCE 11/28/19 07:30 11/28/19 07:31 DC 11/28/19 08:54 30 MG Simvastatin (Zocor) 30 mg HS 11/26/19 21:00 11/28/19 11:34 DC 11/27/19 20:46 30 MG Sodium Chloride 1,000 ml @ 400 mls/hr Q2H30M PRN 11/28/19 08:22 11/28/19 20:21 UNV Sodium Chloride (Normal Saline Flush) 3 ml QSHIFT PRN 11/26/19 11:45 Sucralfate (Carafate) 1 gm QIDACHS 11/26/19 16:30 11/28/19 17:29 1 GM Tamsulosin HCl (Flomax) 0.4 mg BID 11/26/19 21:00 11/28/19 20:26 0.4 MG Verapamil HCl (Verapamil) 2.5 mg 1X ONCE 11/28/19 11:00 11/28/19 11:02 DC 11/28/19 11:00 2.5 MG Vitamin B Complex/ Vitamin C (Mandi-Debbie) 1 tab DAILY 11/27/19 09:00 11/28/19 12:20 1 TAB Vitamin D (Vitamin D3) 2,000 unit DAILY 11/27/19 09:00 11/28/19 12:20 2,000 UNIT Lab Laboratory Tests Test 11/29/19 05:40 Sodium Level 139 mmol/L (136-145) Potassium Level 4.6 mmol/L (3.5-5.1) Chloride Level 102 mmol/L (98-107) Carbon Dioxide Level 26 mmol/L (21-32) Anion Gap 11 (6-14) Blood Urea Nitrogen 42 mg/dL (8-26) Creatinine 5.0 mg/dL (0.7-1.3) Estimated GFR (Cockcroft-Gault) 11.3 Glucose Level 83 mg/dL (70-99) Calcium Level 7.4 mg/dL (8.5-10.1) Phosphorus Level 5.7 mg/dL (2.6-4.7) Albumin 2.2 g/dL (3.4-5.0) Results All relevant outside records, renal labs, imaging studies, telemetry/EKG's were reviewed. Justicifation of Admission Dx: Justifications for Admission: Justification of Admission Dx: Yes JEWEL CARMONA MD Nov 29, 2019 09:24
--- NOTE | 2019-11-29 10:40 | PDOC ---
[employer] PROGRESS NOTE Date of Service DOS: DATE: 11/29/19 TIME: 10:24 Chief Complaint Chief Complaint VTE Prophylaxis Ordered VTE Prophylaxis Devices: Yes VTE Pharmacological Prophylaxi: Yes Assessment/Plan Assessment/Plan impression acute NSTEMI chronic renal failure anemia, azotemia. 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 Small nodule along the fissure on the right, Fleischner Society guidelines recommend an optional one-year follow-up for I risk individuals. Granulomatous ossifications. Sclerotic or possibly blastic lesion T7 correlation with any history of prostate cancer would be of benefit. recent PET scan No suspicious uptake at the T7 sclerotic lesion. This finding may possibly represent a bone island. No other suspicious sclerotic lesions. MRI of the thoracic spine without and with contrast may be performed for more definitive assessment if desired. Tracer uptake in the spine is heterogeneous. No definite increased tracer uptake localizes to the T7 vertebral body. Suggest correlation with PSA. ECHO 03/14The left ventricular systolic function is low normal. The ejection fraction is estimated at 50% mild to moderate mitral regurgitation mild to moderate tricuspid regurgitation. PA pressure was estimated at 44 mmHg. C/W MOD PULM HTN 11/16 ECHO Ejection Fraction is estimated at 35%.moderate global hypokinesis.moderate mitral valve regurgitation.tricuspid regurgitation with an estimated PAP of 48 mmHg. apnea-hypopnea syndrome. Severe single-vessel coronary artery disease, critical 99% ostial lesion and 80% mid segment lesion in the dominant right coronary artery. 11/27 PLAN ADMIT CVC trend troponin i Consult cardiology heparin per cardiology Consult Nephrology for dialysis management. Full code. P.r.n. Tylenol, p.r.n. Zofran, home meds, DVT prophylaxis on heparin drip . 11/27 catheterization 11/26 Peak troponin of 6.5 38 MIN pt exam, chart review, > 50% of time spent with exam, chart review, pt care coordination Justifications for Admission Justifications for Admission Other Justification History of Present Illness History of Present Illness 11/29/2019 Pt seen and examined. Chart reviewed. Discussed with RN and telehealth case manager. Pt tolerating dialysis well, resting in bed, NAD. Identification/Chief Complaint Chief Complaint Mr Leal 79 yo M w/ PMHx ESRD, HTN, smoker who presents NSTEMI FROM [facility] ER He came in by EMS. 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 Endocrine: Hyperparathyroidism Past Surgical History Past Surgical History: Hernia Repair Family History Family History: Coronary Artery Disease, Hypertension Social History Smoke: No ALCOHOL: none Drugs: None Current Medications Current Medications Vitals/I&O Vitals/I&O: Vital Signs Date Time Temp Pulse Resp B/P (MAP) Pulse Ox O2 Delivery O2 Flow Rate FiO2 11/29/19 08:05 Room Air 11/29/19 08:00 2.0 11/29/19 07:00 97.8 66 18 157/74 (101) 95 97.8 I & O 11/28/19 11/28/19 11/29/19 15:00 23:00 07:00 Intake Total 460 ml 950 ml Output Total 200 ml 200 ml Balance -200 ml 260 ml 950 ml Physical Exam Physical Exam: GENERAL: Alert, oriented x 3 male, lying in bed comfortably, in no acute distress. HEENT: Normocephalic, atraumatic. Anicteric. NECK: Supple. No JVD. LUNGS: Clear bilaterally. No wheezing. HEART: S1, S2. No gallops or murmurs. ABDOMEN: Soft, nontender, nondistended. No rebound. No guarding. EXTREMITIES: No edema. No cyanosis. Left upper extremity AV fistula unremarkable. DERMATOLOGIC: Warm, dry. No generalized rash. NEUROLOGIC: Alert. Answers questions appropriately. Right neck line clean. General: Alert, Oriented X3, Cooperative, No acute distress Heart: Regular rate Lungs: Clear Abdomen: Normal bowel sounds, No tenderness Extremities: No clubbing, No cyanosis Skin: No rashes, No breakdown, No significant lesion Labs Labs: Laboratory Tests Test 11/29/19 05:40 White Blood Count 7.8 x10^3/uL (4.0-11.0) Red Blood Count 2.75 x10^6/uL (4.30-5.70) Hemoglobin 9.0 g/dL (13.0-17.5) Hematocrit 27.1 % (39.0-53.0) Mean Corpuscular Volume 99 fL (79-100) Mean Corpuscular Hemoglobin 33 pg (25-35) Mean Corpuscular Hemoglobin Concent 33 g/dL (31-37) Red Cell Distribution Width 15.3 % (11.5-14.5) Platelet Count 216 x10^3/uL (140-400) Neutrophils (%) (Auto) 87 % (31-73) Lymphocytes (%) (Auto) 7 % (24-48) Monocytes (%) (Auto) 7 % (0-9) Eosinophils (%) (Auto) 0 % (0-3) Basophils (%) (Auto) 0 % (0-3) Neutrophils # (Auto) 6.7 x10^3/uL (1.8-7.7) Lymphocytes # (Auto) 0.5 x10^3/uL (1.0-4.8) Monocytes # (Auto) 0.5 x10^3/uL (0.0-1.1) Eosinophils # (Auto) 0.0 x10^3/uL (0.0-0.7) Basophils # (Auto) 0.0 x10^3/uL (0.0-0.2) Sodium Level 139 mmol/L (136-145) Potassium Level 4.6 mmol/L (3.5-5.1) Chloride Level 102 mmol/L (98-107) Carbon Dioxide Level 26 mmol/L (21-32) Anion Gap 11 (6-14) Blood Urea Nitrogen 42 mg/dL (8-26) Creatinine 5.0 mg/dL (0.7-1.3) Estimated GFR (Cockcroft-Gault) 11.3 Glucose Level 83 mg/dL (70-99) Calcium Level 7.4 mg/dL (8.5-10.1) Phosphorus Level 5.7 mg/dL (2.6-4.7) Albumin 2.2 g/dL (3.4-5.0) Review of Systems Review of Systems: Pt denies pain, pt denies weakness Assessment and Plan Assessmemt and Plan Assessment: Acute NSTEMI ESRD HTN Anemia, proteniuria Granulomatous ossification, 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 Medications: Current Medications Medications (Trade) Dose Ordered Sig/Diane Route PRN Reason Start Time Stop Time Status Last Admin Dose Admin Nitroglycerin (Nitroglycerin) 200 mcg 1X ONCE IART 11/28/19 11:00 11/28/19 11:02 DC 11/28/19 11:00 Verapamil HCl (Verapamil) 2.5 mg 1X ONCE IART 11/28/19 11:00 11/28/19 11:02 DC 11/28/19 11:00 Heparin Sodium (Porcine) (Heparin Sodium) 2,500 unit 1X ONCE IART 11/28/19 11:00 11/28/19 11:02 DC 11/28/19 11:00 Heparin Sodium/ Sodium Chloride (HEPARIN for ARTERIAL LINE FLUSH) 1,000 unit 1X ONCE IART 11/28/19 11:00 11/28/19 11:02 DC 11/28/19 11:00 Heparin Sodium/ Sodium Chloride (HEPARIN for ARTERIAL LINE FLUSH) 1,000 unit 1X ONCE IART 11/28/19 11:00 11/28/19 11:02 DC 11/28/19 11:00 Midazolam HCl (Versed) 2 mg 1X ONCE IV 11/28/19 11:00 11/28/19 11:02 DC 11/28/19 11:00 Fentanyl Citrate (Fentanyl 2ml Vial) 100 mcg 1X ONCE IV 11/28/19 11:00 11/28/19 11:02 DC 11/28/19 11:00 Iodixanol (Visipaque 320) 100 ml 1X ONCE IART 11/28/19 11:00 11/28/19 11:02 DC 11/28/19 11:00 Bivalirudin (Angiomax) 250 mg 1X ONCE IV 11/28/19 11:00 11/28/19 11:02 DC 11/28/19 11:00 Lidocaine HCl (Xylocaine-Mpf 1% 2ml Vial) 2 ml 1X ONCE INJ 11/28/19 11:00 11/28/19 11:02 DC 11/28/19 11:00 Diphenhydramine HCl (Benadryl) 50 mg 1X ONCE IVP 11/28/19 11:00 11/28/19 11:02 DC 11/28/19 10:29 Methylprednisolone Sodium Succinate (SOLU-Medrol 125MG VIAL) 125 mg 1X ONCE IV 11/28/19 11:00 11/28/19 11:02 DC 11/28/19 10:29 Famotidine (Pepcid Vial) 20 mg 1X ONCE IVP 11/28/19 11:00 11/28/19 11:02 DC 11/28/19 10:29 Nitroglycerin (Nitroglycerin) 200 mcg 1X ONCE IART 11/28/19 11:15 11/28/19 11:16 DC 11/28/19 11:15 Midazolam HCl (Versed) 2 mg 1X ONCE IV 11/28/19 11:15 11/28/19 11:16 DC 11/28/19 11:15 Nitroglycerin (Nitroglycerin) 200 mcg 1X ONCE IART 11/28/19 11:15 11/28/19 11:16 DC 11/28/19 11:15 Clopidogrel Bisulfate (Plavix) 600 mg 1X ONCE PO 11/28/19 11:15 11/28/19 11:34 DC 11/28/19 11:15 Aspirin (Alison Aspirin) 325 mg 1X ONCE PO 11/28/19 11:15 11/28/19 11:34 DC 11/28/19 11:15 Nitroglycerin (Nitroglycerin) 200 mcg 1X ONCE IART 11/28/19 11:30 11/28/19 11:34 DC 11/28/19 11:30 Diphenhydramine HCl (Benadryl) 50 mg 1X ONCE IVP 11/28/19 11:30 11/28/19 11:34 DC 11/28/19 11:30 Atorvastatin Calcium (Lipitor) 40 mg QHS PO 11/28/19 21:00 11/28/19 20:28 Metoprolol Tartrate (Lopressor) 25 mg BID PO 11/28/19 18:00 11/28/19 20:28 Justifications for Admission Other Justification KONSTANTIN VILLATORO III DO Nov 29, 2019 10:40
[2019-11-29] MEDS ORDERED: CLOP75TA PO (10:47)
[2019-11-29] MEDS ORDERED: METO25TA4 PO (10:47)
--- NOTE | 2019-11-29 13:12 | NUR ---
SS following up with discharge planning. SS reviewed pt chart and discussed with pt RN. Pt is currently on room air. Discharge order on the chart for home with self care. Pt has outpatient dialysis at [facility], ; fax [phone], Thursday, , and Thursday. SS phoned and faxed clinical to [facility] in [place]. Order received for Life Vest. SS phoned and faxed Life Vest order to at [facility], ; fax [phone]. SS will continue to follow for discharge planning.
[2019-11-29] MEDS: OMEGA-3 FATTY ACIDS/FISH OIL 1,000 MG CAPSULE. PO SCH (13:33)
[2019-11-29] MEDS: TAMSULOSIN 0.4 MG CAP.ER.24H. PO SCH (13:33)
[2019-11-29] MEDS: PANTOPRAZOLE 40 MG TABLET.DR. PO SCH (13:33)
[2019-11-29] MEDS: amLODIPine BESYLATE 5 MG TABLET PO SCH (13:33)
[2019-11-29] MEDS: ISOSORBIDE MONONITRATE ER 30 MG TAB.ER.24H PO SCH (13:33)
[2019-11-29] MEDS: CHOLECALCIFEROL (VITAMIN D3) 1,000 UNIT TABLET PO SCH (13:34)
[2019-11-29] MEDS: buPROPion XL 150 MG TAB.ER.24H. PO SCH (13:34)
[2019-11-29] MEDS: FOLIC/VIT B COMP W-C (RENAL) TABLET. PO SCH (13:34)
[2019-11-29 13:36] VITALS: BP 157/74
[2019-11-29] MEDS: LOSARTAN POTASSIUM 25 MG TABLET. PO SCH (13:36)
[2019-11-29] MEDS: LACTOBACILLUS RHAMNOSUS GG 1 CAPSULE. PO SCH (13:36)
--- NOTE | 2019-11-29 15:07 | PDOC ---
CARDIO Progress Notes Date and Time Date of Service 11/29/2019 Time of Evaluation 1010 Subjective Subjective: No Chest Pain, No shortness of breath, No Palpitations Vitals Vitals Vital Signs Date Time Temp Pulse Resp B/P (MAP) Pulse Ox O2 Delivery O2 Flow Rate FiO2 11/29/19 13:36 66 157/74 11/29/19 08:05 Room Air 11/29/19 08:00 2.0 11/29/19 07:00 97.8 18 95 97.8 Weight Weight [ ] Input and Output Intake and Output Intake and Output 11/29/19 07:00 Intake Total 1410 ml Output Total 400 ml Balance 1010 ml Intake Oral 1410 ml Output Urine Total 400 ml # Voids 1 Laboratory Labs Laboratory Tests Test 11/29/19 05:40 White Blood Count 7.8 x10^3/uL (4.0-11.0) Red Blood Count 2.75 x10^6/uL (4.30-5.70) Hemoglobin 9.0 g/dL (13.0-17.5) Hematocrit 27.1 % (39.0-53.0) Mean Corpuscular Volume 99 fL (79-100) Mean Corpuscular Hemoglobin 33 pg (25-35) Mean Corpuscular Hemoglobin Concent 33 g/dL (31-37) Red Cell Distribution Width 15.3 % (11.5-14.5) Platelet Count 216 x10^3/uL (140-400) Neutrophils (%) (Auto) 87 % (31-73) Lymphocytes (%) (Auto) 7 % (24-48) Monocytes (%) (Auto) 7 % (0-9) Eosinophils (%) (Auto) 0 % (0-3) Basophils (%) (Auto) 0 % (0-3) Neutrophils # (Auto) 6.7 x10^3/uL (1.8-7.7) Lymphocytes # (Auto) 0.5 x10^3/uL (1.0-4.8) Monocytes # (Auto) 0.5 x10^3/uL (0.0-1.1) Eosinophils # (Auto) 0.0 x10^3/uL (0.0-0.7) Basophils # (Auto) 0.0 x10^3/uL (0.0-0.2) Sodium Level 139 mmol/L (136-145) Potassium Level 4.6 mmol/L (3.5-5.1) Chloride Level 102 mmol/L (98-107) Carbon Dioxide Level 26 mmol/L (21-32) Anion Gap 11 (6-14) Blood Urea Nitrogen 42 mg/dL (8-26) Creatinine 5.0 mg/dL (0.7-1.3) Estimated GFR (Cockcroft-Gault) 11.3 Glucose Level 83 mg/dL (70-99) Calcium Level 7.4 mg/dL (8.5-10.1) Phosphorus Level 5.7 mg/dL (2.6-4.7) Albumin 2.2 g/dL (3.4-5.0) Review of Systems Constitutional: yes: other (CONFUSION, NOT RELIABLE) Physical Exam HEENT: Neck Supple W Full Motion Chest: Symmetric LUNGS: Clear to Auscultation Heart: RRR (SR) Abdomen: Soft N/T Extremities: No Edema, No Calf Tenderness Neurology: alert, oriented, follow commands, confused Assessment Assessment 1. NSTEMI: S/P PCI/DARREN to RCA. Nonobstructive lesions noted in LAD and LCx 2. ESRD 3. Chronic AFIB: rate controlled 4. HTN: low marginal 5. HLP 6. ICM: Compensated. EF 35% NYHA 2 Recommendations 1. 81 mg ECASA, plavix 75 mg daily. Discussed with primary ice resurfacing machine operators in regards to eliquis and due to risk for bleed and current anemia will continue with 2.5 mg bid 2. Cardiac rehab 3. Discussed with pt and spouse in regards to lifevest. Agreed with lifevest for SCD prevention. AICD consideration in 3 months pending optimization 4. Continue GDMT optimization 5. Fluid off loading per HD. Justicifation of Admission Dx: Justifications for Admission: Justification of Admission Dx: Yes AFSHAN BARRETT APRN Nov 29, 2019 15:07
[2019-11-29 15:58] LABS: CHOLESTEROL/HDL RATIO 2.5
--- NOTE | 2019-11-29 17:27 | NUR ---
Discharge Note: DEVIN MANUEL Discharge instructions and discharge home medications reviewed with Spouse and a copy given. All questions have been answered and understanding verbalized. The following instructions and handouts were given: HI Discontinued lines and drains: Patient discharged to Home or Self Care with Spouse via Wheelchair
[2019-11-29] MEDS ORDERED: APIXABAN 2.5 MG TABLET. PO SCH (21:00)
[2019-11-30] MEDS ORDERED: LOSARTAN POTASSIUM 25 MG TABLET. PO SCH (09:00)
[2019-11-30] MEDS ORDERED: METOPROLOL SUCC 24HR ER 50 MG TAB.ER.24H. PO SCH (09:00)
== END 2019-11-29 17:29 | disposition home or self-care (01) | DRG 246 ==
LOC: 2 NORTH 10:22
PROVIDERS: ADMIT Family Medicine; ATTEND Family Medicine
PROC: 5A1D70Z Performance of Urinary Filtration, Intermittent, Less than 6 Hours Per Day (ICD-10-PCS; 2019-11-26)
PROC: 027036Z Dilation of Coronary Artery, One Artery with Three Drug-eluting Intraluminal Devices, Percutaneous Approach (ICD-10-PCS; principal; 2019-11-28)
PROC: 4A023N7 Measurement of Cardiac Sampling and Pressure, Left Heart, Percutaneous Approach (ICD-10-PCS; 2019-11-28)
PROC: B2111ZZ Fluoroscopy of Multiple Coronary Arteries using Low Osmolar Contrast (ICD-10-PCS; 2019-11-28)
PROC: 5A1D70Z Performance of Urinary Filtration, Intermittent, Less than 6 Hours Per Day (ICD-10-PCS; 2019-11-28)
PROC: 5A1D70Z Performance of Urinary Filtration, Intermittent, Less than 6 Hours Per Day (ICD-10-PCS; 2019-11-29)
DX: I21.4 Non-ST elevation (NSTEMI) myocardial infarction (principal); N18.6 End stage renal disease; I13.2 Hypertensive heart and chronic kidney disease with heart failure and with stage 5 chronic kidney disease, or end stage renal disease; I42.9 Cardiomyopathy, unspecified; I48.20 Chronic atrial fibrillation, unspecified; R78.81 Bacteremia; D63.1 Anemia in chronic kidney disease; E78.5 Hyperlipidemia, unspecified; I08.1 Rheumatic disorders of both mitral and tricuspid valves; I25.10 Atherosclerotic heart disease of native coronary artery without angina pectoris; I27.20 Pulmonary hypertension, unspecified; I50.9 Heart failure, unspecified; J44.9 Chronic obstructive pulmonary disease, unspecified; K22.70 Barrett's esophagus without dysplasia; K52.9 Noninfective gastroenteritis and colitis, unspecified; Z82.49 Family history of ischemic heart disease and other diseases of the circulatory system; Z85.46 Personal history of malignant neoplasm of prostate; Z87.19 Personal history of other diseases of the digestive system; Z87.891 Personal history of nicotine dependence; Z98.61 Coronary angioplasty status; Z99.2 Dependence on renal dialysis; E21.3 Hyperparathyroidism, unspecified; F32.9 Major depressive disorder, single episode, unspecified; I25.5 Ischemic cardiomyopathy; F41.9 Anxiety disorder, unspecified; K21.9 Gastro-esophageal reflux disease without esophagitis; Z88.8 Allergy status to other drugs, medicaments and biological substances
CPT/HCPCS: 36415; 71045; 80048; 80053; 80061; 80069; 83735; 84484; 85007; 85025; 85027; 85520; 85610; 85730; 92928; 93458; 94640; 94760; 99152; 99153; C1725; C1769; C1874; C1887; C1892; J0583; J1200; J1644; J2185; J2250; J2270; J2930; J3010; J3490; J7512; Q9967; G0378; J7613; J7626

== ENCOUNTER 2019-12-04 02:20 | Inpatient (IN) | payer MEDICARE, BC ==
[~2019-12-04] VITALS: Ht 182.9 cm; Wt 87.0 kg
[~2019-12-04 02:20] MED LIST changes: +CLOP75TA PO; +METO25TA4 PO
--- NOTE | 2019-12-04 02:30 | NUR ---
The patient, DEVIN MANUEL, 79 y/o, M admitted by KONSTANTIN VILLATORO III, DO, was given written information regarding hospital policies, unit procedures and contact persons. pt came with clothes and his glasses. documented in the emr. pt during our admission had 2 episodes of left arm shaking and garbled speech. stopped immediately. and this made pt very frustrated. pt helped with his history and partial med list. going to verify meds in am with his . Valuables were checked and charted in emr. explained poc with pt, who said he was tired, lcrn
[2019-12-04 02:39] VITALS: BP 159/100
[2019-12-04 07:00] VITALS: BP 190/118
--- NOTE | 2019-12-04 07:30 | NUR ---
pt's Tali is on the phone. said her just called and is all worked up. [place]. pt states sshe has been her since 10pm and nothing has been done with him. went in room after call and attempted to calm pt down. told him he arrived at [facility] AT 0230. AND WE ARE WAITING ON DOCTORS TO SEE HIM AND HIS WILL BE HERE SHORTLY. AT THE MOMENT PT IS JUST WAITING. BUT WHEN HE WAS WORKED UP HE BEGAN SHAKING TREMORS LIKE AND HIS SPEECH BECAME SLOWED AND GARBLED. LCRN
[2019-12-04] MEDS ORDERED: METO-239 PO (07:56)
[2019-12-04] MEDS ORDERED: ASPI-630 PO (07:56)
[2019-12-04] MEDS ORDERED: LIPITOR80 MG PO (07:56)
[2019-12-04] MEDS ORDERED: MINO100T2 PO (07:56)
--- NOTE | 2019-12-04 09:11 | PDOC ---
CARDIOLOGY PROGRESS NOTE SUBJECTIVE: Please see full consult note from last week for full details. 79 y.o male underwent PCI of the RCA, has been on HD, presented with shaking and jerking body movements, appears to have anxiety issues as well. No specific cardiac issues. Tolerating medical therapy well. OBJECTIVE: Vital Signs/I&O: Vital Signs Date Time Temp Pulse Resp B/P (MAP) Pulse Ox O2 Delivery O2 Flow Rate FiO2 12/04/19 07:00 98.5 122 18 190/118 (142) 98 Room Air 98.5 I & O 12/03/19 12/03/19 12/04/19 15:00 23:00 07:00 Intake Total 120 ml Output Total 200 ml Balance -80 ml DIAGNOSTIC TESTING: Cath on 11/27 - s/p RCA PCI Echo 2019 - EF 35% Labs: Reviewed ASSESSMENT: 1. Non-cardiac shaking/jerking movements, ? anxiety 2. HTN 3. cAD 4. ESRD 5. Atrial fib. - chronic PLAN: 1. COntinue home plavix and eliquis. 2. Continue Toprol XL. 3. Check ABG 4. Await neuro and psych consults. 5. Elevated troponin related to last admission, nothing acute at this time. EKG unrevealing Supportive care. Justicifation of Admission Dx: Justifications for Admission: Justification of Admission Dx: Yes NOELLE LOZOYA MD Dec 04, 2019 09:11
--- NOTE | 2019-12-04 10:14 | HP ---
ADMIT DATE: 12/04/2019 CHIEF COMPLAINT: Shaking. HISTORY OF PRESENT ILLNESS: The patient is a pleasant 79-year-old male who we just discharged recently. He had chest pain at that time and went for cardiac cath and had 3 stents to the RCA. Now, he is developing some neurologic symptoms. His cheek was shaking and he has intermittent shaking of his face and upper body. I discussed the case with ER physician. We are going to admit the patient and consult Neurology. PAST MEDICAL HISTORY: Coronary artery disease with recent stents x 3, hypertension, hyperlipidemia, ESRD, AFib. ALLERGIES: NSAIDS, NITROFURANTOIN, FINASTERIDE, LASIX, HYDROCHLOROTHIAZIDE, SPIRONOLACTONE, AND SEVERAL OTHERS WERE REVIEWED IN THE CHART. PLEASE CHECK THE ALLERGIES IN THE CHART. FAMILY HISTORY: Diabetes. SOCIAL HISTORY: He does not drink, smoke or take drugs. He is retired. MEDICATIONS: Reviewed, please refer to the MRAD. REVIEW OF SYSTEMS: GENERAL: No history of weight change, weakness or fevers. SKIN: No bruising, hair changes or rashes. EYES: No blurred, double or loss of vision. NOSE AND THROAT: No history of nosebleeds, hoarseness or sore throat. HEART: No history of palpitations, chest pain or shortness of breath on exertion. LUNGS: Denies cough, hemoptysis, wheezing or shortness of breath. GASTROINTESTINAL: Denies changes in appetite, nausea, vomiting, diarrhea or constipation. GENITOURINARY: No history of frequency, urgency, hesitancy or nocturia. NEUROLOGIC: He complains of intermittent shaking and some slight confusion. PSYCHIATRIC: No history of panic, anxiety or depression. ENDOCRINE: No history of heat or cold intolerance, polyuria or polydipsia. EXTREMITIES: Denies muscle weakness, joint pain, pain on walking or stiffness. PHYSICAL EXAMINATION: VITALS: Within normal limits and are stable. GENERAL: No apparent distress. Alert and oriented. HEENT: Normal cephalic atraumatic, external auditory canals are patent EYES: Extraocular muscles are intact, pupils are equally round and reactive to light and accommodation MUSCULOSKELETAL: Well developed, well nourished, good range of motion ENDOCRINE: No thyromegaly was palpated LYMPHATICS: No cervical chain or axillary nodes were noted HEMATOPOIETIC: No bruising NECK: Supple, no JVD, no thyromegaly was noted. LUNGS: Clear to auscultation in all lung cronin without rhonchi or wheezing. HEART: RRR, S1, S2 present. Peripheral pulses intact, no obvious murmurs were noted. ABDOMEN: Soft, nontender. Positive bowel sounds no organomegaly, normal bowel sounds. EXTREMITIES: Without any cyanosis, clubbing, or edema. Pedal pulses intact, Homans sign is negative. NEUROLOGIC: He appears normal at first, but then he shakes his head and his upper chest. He is also slightly confused. PSYCHIATRIC: Normal affect, normal mood. Stable. SKIN: No ulcerations or rashes, good skin turgor, no jaundice. VASCULAR: Good capillary refill, neurovascular bundle appears to be intact.. ASSESSMENT AND PLAN: Neurologic symptoms, suspect possible toxicity to one of his medications versus a psychiatric component. The patient has been admitted. We are consulting Neurology. We will also consult Cardiology as he recently had new stents. I reviewed his meds. We will try to resume most of those. DVT prophylaxis. Full code. Cardiac monitoring. KONSTANTIN VILLATORO DO DR: LINDA/stephanie JOB#: [id number] / [id number]
[2019-12-04 10:59] VITALS: BP 153/66
[2019-12-04 12:23] LABS: BASE EXCESS ABG 4 mmol/L (-3-3); HCO3 ABG 25 mmol/L (21-28); PCO2 ABG 27 mmHg (35-46); PO2 ABG 86 mmHg (65-108); SAT O2 ABG 96 % (92-99)
[2019-12-04 12:24] LABS: FIO2 ABG 21
[2019-12-04 15:00] VITALS: BP 178/94
--- NOTE | 2019-12-04 17:58 | NUR ---
Pt arrived and patient continued to be anxious. Physician ordered ativan PRN. Pt states that he still feels anxious even after seeing the primary physician. Requesting the ativan to help with anxiety and to help with the "twitiching". 1mg of IVP ativan given. Reassessment of the patient after IVP ativan notes that the "twitching" has slowed and even stopped, however the patient is becoming increasingly confused. states that he has been hallucinating. Stating to her that there is money all of the floor and that there are children on the roof. states that often times the patient will talk in his sleep, but the confusion is new. The patient remained confused for most of the afternoon. left at approximately 1645. Neurology in to see patient shortly after, patient no longer as confused but suddenly became short of breath. O2 saturation noted at 96% on RA. Pt states the shortness of breath was due to him having just walked. Neurology believes this is more cardiac related. Will notify primary physician. Will continue monitor.
--- NOTE | 2019-12-04 18:18 | CONS ---
DATE OF CONSULTATION: NEPHROLOGY CONSULTATION REQUESTING PHYSICIAN: Hospitalist. REASON FOR CONSULTATION: Renal failure, end-stage renal disease status, hemodialysis dependent. HISTORY OF PRESENT ILLNESS: A 79-year-old gentleman who has been on dialysis since May of this year. Undergoes dialysis on a Thursday, , Thursday schedule under direction of Dr. Smiley Whatley of our practice. He has been attending his dialysis treatments. I feel that he has improved with the same. His hypertension is on the basis of hypertensive nephrosclerosis. He currently is now admitted with intermittent shaking. He has been evaluated for the same. He had ongoing dialysis throughout his hospital course and also management of comorbidities associated with end-stage renal disease, Neurology has been consulted for his "shaking." PAST MEDICAL HISTORY: Hypertension, end-stage renal disease, hemodialysis dependent on Thursday, and Thursday at [facility], hyperlipidemia, atrial fibrillation, coronary artery disease, status post coronary stenting x3, anemia of chronic kidney disease, secondary hyperparathyroidism of renal disease, vascular access placement with fistula. ALLERGIES: NITROFURANTOIN, FINASTERIDE, NSAIDS, LASIX, HYDROCHLOROTHIAZIDE, SPIRONOLACTONE, IV CONTRAST, IODINE, BUMETANIDE, DUTASTERIDE, REGADENOSON. FAMILY HISTORY: Noncontributory at this age. SOCIAL HISTORY: , resides with his in the [place]. REVIEW OF SYSTEMS: No headache, sinus problem, nasal drainage, epistaxis, change in vision or hearing. No difficulty swallowing. No fever, chills, cough, sputum production, or hemoptysis. No chest pain, shortness of breath, PND, orthopnea, dyspnea on exertion. No abdominal pain. No nausea, vomiting, diarrhea. No seizures or malignancies. Previous shaking. This has dissipated. PHYSICAL EXAMINATION: GENERAL APPEARANCE: The patient is awake, conversant, appropriate. Appears stated age. HEENT: Clear. NECK: No increased JVD. No thyromegaly, mass, or adenopathy. LUNGS: Clear. CARDIAC: Without S3 or rub. ABDOMEN: Soft, nontender, no bruits. EXTREMITIES: Without edema. NEUROLOGIC: Nonfocal, nonlocalized. PSYCHIATRIC: Good attention to detail, appropriate affect. IMPRESSION: 1. 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 2. Anemia of chronic kidney disease. 3. Secondary hyperparathyroidism of renal disease. 4. "Shaking." Maybe myoclonic jerks associated with end-stage renal disease. RECOMMENDATIONS: 1. Ongoing dialysis Thursday, and Thursday. Epogen for anemia of chronic kidney disease. 2. Neurology evaluation pending. MARITA DICKINSON MD DR: MARY/stephanie JOB#: [id number] / [id number]
[2019-12-04] MEDS: METOPROLOL SUCC 24HR ER 50 MG TAB.ER.24H. PO SCH (18:59)
[2019-12-04] MEDS: ALPRAZolam 0.25 MG TABLET PO PRN (19:26)
[2019-12-04 19:35] VITALS: BP 147/89
--- NOTE | 2019-12-04 19:38 | CONS ---
DATE OF CONSULTATION: 12/04/2019 REFERRING PHYSICIAN: Izabella Pena DO REASON FOR CONSULTATION: Encephalopathy. HISTORY OF PRESENT ILLNESS: The patient is a pleasant 79-year-old man who has had 3 recent hospitalizations at [facility]. He was initially admitted on 11/10/2019 with nausea, vomiting and diarrhea. He had been slowly worsening over the few days prior to that admission. He has chronic renal failure and is maintained on hemodialysis. Prior to dialysis, he was feeling much worse. He was hospitalized and improved from that situation. He was then admitted on 11/26/2019 and transfer from [facility] due to an acute coronary artery syndrome. He was heparinized and ultimately received 3 stents and treatment. He was placed on aspirin and Plavix. He is maintained on anticoagulation for stroke prevention due to chronic atrial fibrillation. On this occasion, he was admitted on 12/04/2019. after developing some neurologic symptoms. He was having shaking of his face and upper body. This was not associated with altered or loss of consciousness. He was given 1 mg of IV Ativan this morning. Following this, he became sleepy and confused, although is now awake, but still confused. All the movements have completely subsided. PAST MEDICAL HISTORY: 1. Coronary artery disease, status post 3 recent stents. 2. Hypertension. 3. Hyperlipidemia. 4. End-stage renal disease, on hemodialysis. 5. Atrial fibrillation. ALLERGIES: NONSTEROIDAL ANTI-INFLAMMATORY DRUGS, NITROFURANTOIN, FINASTERIDE, LASIX, HYDROCHLOROTHIAZIDE, SPIRONOLACTONE, AND OTHERS. Please refer to the chart. MEDICATIONS PRIOR TO ADMISSION: Albuterol metered dose inhaler 4 times a day as needed, alprazolam 0.5 mg every 6 hours as needed, which he rarely uses, amlodipine 5 mg twice per day, apixaban 2.5 mg twice per day, aspirin 81 mg, atorvastatin 80 mg, budesonide/formoterol 2 puffs twice per day, bupropion XL 150 mg, vitamin D3 2000 units, clopidogrel 75 mg, diphenhydramine 25 mg as needed, folic acid/Mandi-Debbie vitamin, isosorbide mononitrate 30 mg twice per day, lactobacillus probiotics, losartan 25 mg, metoprolol 50 mg, minocycline 100 mg twice per day, omega 3 fatty acids 1000 mg, pantoprazole 40 mg twice per day, sucralfate 1 g 4 times a day and tamsulosin 0.4 mg extended release twice per day. FAMILY HISTORY: Diabetes. SOCIAL HISTORY: He is retired. He smokes tobacco. He does not drink alcohol or use recreational drugs. I believe he has quit tobacco since that hospital stay. REVIEW OF SYSTEMS: He does not complain of any headache. He has had no trouble with vision or hearing. He has had cognitive changes. He has not had complaint with visual difficulty. He has had confusion and disorientation. He has not had trouble with chewing or swallowing. He does have shortness of breath. He is currently not having chest or abdominal pain. He does not have bone or joint pain. There has been no fever or rash. Does not have any gastrointestinal, genitourinary complaints at this time. He does not complain of focal numbness or weakness. He does not complain of excessive bruising or bleeding. He does not complain of swelling. He does not have any psychiatric complaints other than occasional anxiety. He did have shaking earlier today, which has resolved. PHYSICAL EXAMINATION: VITAL SIGNS: The blood pressure was 178/94, pulse 94, respirations 20, temperature 98 degrees Fahrenheit. Oximetry was 95% on room air. His weight was 84.5 kilograms, height 72 inches with a calculated body mass index of 25.3. GENERAL: He was alert, awake and cooperative. Speech was fluent and clear. He had a good fund of recent and remote knowledge. Attention and concentration was intact. He appeared well groomed and well nourished. He was fully oriented. NEUROLOGIC: Examination of the cranial nerves revealed visual cronin were full to confrontation. Extraocular movements were intact. The eyes were conjugate. Pursuit movements were smooth and saccadic eye movements were without dysmetria. Pupils were 2 mm. Funduscopic exam did not reveal papilledema. Facial sensation was intact bilaterally. The muscles of mastication and facial expression were powerful symmetrically. Hearing was intact to finger rub. The palate arched symmetrically and the tongue was midline with full motion. Sternocleidomastoid and trapezius were powerful. Muscle bulk and tone was normal. There was no arm or leg drift. Power was full and symmetric. By the time we were getting down to his legs to check strength testing, he was extremely short of breath and had to stop. His legs did bear weight. Reflexes 2/4 and symmetric in upper and lower extremities, but absent at the ankles. Toes were downgoing. Coordination testing with [id number], fine motor and rapid movements was well performed. Sensory exam was intact to pain, light touch, proprioception, graphesthesia, cold thermal and vibration in the upper and lower extremities. There was no extinction to double simultaneous stimulation. He is able to stand and bear weight. He was somewhat hunched over, but was able to walk independently from the chair to the bed. He was able to sit down with good balance. When he did become so short of breath at that time, his pulse was in the 120 range to 130 range. Oximetry was still in the mid 90s. He appeared somewhat distressed. He did not especially appears anxious. LABORATORY RESULTS: CBC was performed 11/29/2019 revealed a normal white blood cell count and platelet count. Hemoglobin was 9 and hematocrit 27.1. Chemistries were performed 11/29/2019 revealing normal electrolytes. BUN was 42 and creatinine 5. Glucose was normal. Calcium was low at 7.4, phosphorus elevated at 5.7. Vitamin B12 level was measured on 11/12/2019 and was 1369. PSA was measured on 03/14/2019 was elevated at 9.27. TSH on 11/15/2019 was normal. Copper level was 95 on 11/12/2019. Coronavirus was not detected on 11/10/2019. C. difficile negative on 11/11/2019. Urinalysis from 11/10/2019 revealed greater than 300 mg/dL of protein, small amount of blood, 6-10 red blood cells, rare white blood cells. Arterial blood gas was performed on 12/04/2019. The pO2 was 86, pCO2 was low at 27, bicarbonate was 25 and pH was 7.6. This was on room air. IMAGING: Head CT was performed on 11/10/2019 and revealed supratentorial atrophy, greater of the parietal lobes and small vessel disease. There was no acute process. IMPRESSION: The patient is a pleasant 79-year-old man who became encephalopathic with confusion. This is fluctuating. Earlier today, he had abnormal movements in a great deal of anxiety. This was treated with Ativan, which completely resolved the abnormal movements and anxiety, but he became confused and lethargic. The lethargy has worn off and the confusion has gradually improved as the days worn on. I am concerned that he is getting so very short of breath. I do not think this is just a hyperventilation reaction, but perhaps it is related to the development of anemia, stenosis of the stent, congestive heart failure or pulmonary embolus. At the present time, I do not see a focal neurologic problem contributing. In view of his medications, I do not see a specific medicines that I would think would provoke his confusion or abnormal movement. At the time of my exam, he did not have abnormal movements or tremor nor did he have asterixis. I do not see anything that would suggest stroke or a focal lesion. I feel he does require further metabolic and possibly cardiac investigation. CARLA ROGERS MD DR: YANDEL/stephanie JOB#: [id number] / [id number] Minnie Coughlin
[2019-12-04] MEDS: APIXABAN 2.5 MG TABLET. PO SCH (20:09)
[2019-12-04] MEDS: MINOCYCLINE 100 MG CAPSULE PO SCH (20:09)
[2019-12-04] MEDS ORDERED: NON FORMULARY ITEM (Budesonide/Formoterol Fumarate (Symbicort 160-4.5 Mcg Inhaler) 2 PUFF) IH SCH (21:00)
[2019-12-04] MEDS ORDERED: ALBUTEROL SULFATE 2.5 MG/3 ML NEBU. NEB SCH (21:00)
[2019-12-04] MEDS: BUDESONIDE 0.5 MG/2 ML NEBU. NEB SCH ×2 (21:01→21:16)
[2019-12-04] MEDS: ALBUTEROL SULFATE 2.5 MG/3 ML NEBU. NEB SCH (21:03)
[2019-12-04 22:47] VITALS: BP 152/83
--- NOTE | 2019-12-05 00:58 | NUR ---
Confused. Anxious. Restless. Pulled SL out of right hand. O2 sat on RA 86%. Applied O2 2L NC and gave Xanax as ordered PRN for anxiety. Reorientated patient that he is at [facility]. Cooperative with new IV start. Resting in chair at bedside. Call light at hand. O2 Sat 97% with 2L NC.
[2019-12-05] MEDS: ALPRAZolam 0.25 MG TABLET PO PRN ×2 (02:30→14:10)
[2019-12-05 03:32] VITALS: BP 169/67
--- NOTE | 2019-12-05 04:40 | NUR ---
Continues to be confused and restless. Pulls Tele Monitor off. Takes gown off. Talks to people that are not there. Sitting in chair at bedside. Call light at hand.
--- NOTE | 2019-12-05 05:50 | NUR ---
Ativan d/c'd. Xanax dose decreased from 0.25 to 0.125 q8hrs prn anxiety. Last dose Xanax given at 02:30. Next dose can not be given until 10:30 this morning. Patient request "something for anxiety". Reports "this is the time of the morning it gets really bad". Patient is getting restless again. Orders given by Dr Juarez for 1x dose Xanax 0.125 now.
[2019-12-05] MEDS ORDERED: ALPRAZolam 0.25 MG TABLET PO ONE (06:00)
[2019-12-05 07:00] VITALS: BP 163/77
[2019-12-05] MEDS: BUDESONIDE 0.5 MG/2 ML NEBU. NEB SCH ×2 (07:30→20:07)
[2019-12-05] MEDS: ALBUTEROL SULFATE 2.5 MG/3 ML NEBU. NEB SCH ×4 (07:31→20:08)
[2019-12-05] MEDS ORDERED: ANTI-COAG MONITOR BY PHARMACY. MC PRN (07:45)
[2019-12-05] MEDS: APIXABAN 2.5 MG TABLET. PO SCH ×2 (09:18→21:55)
[2019-12-05] MEDS: CLOPIDOGREL BISULFATE 75 MG TABLET PO SCH (09:18)
[2019-12-05] MEDS: MINOCYCLINE 100 MG CAPSULE PO SCH ×2 (09:19→21:55)
[2019-12-05] MEDS: ASPIRIN CHEWABLE 81 MG TABLET. PO SCH (09:21)
--- NOTE | 2019-12-05 10:23 | PDOC ---
PROGRESS NOTES Date of Service: DATE: 12/05/19 TIME: 10:21 Chief Complaint Chief Complaint Metabolic encephalopathy Anxiety disorder Essential hypertension History of coronary artery disease with recent PCI of the RCA End-stage renal disease on hemodialysis Thursday and Thursday History of atrial fibrillation chronic in nature Noncardiac shaking and jerking movements currently resolved Plan: start Buspar follow recs from Psych hopefully discharge in the next 24 to 48 hours. History of Present Illness History of Present Illness 12/05/2019 No acute events reported overnight, case discussed with nursing staff patient in no acute distress no complaints during my visit After my visit nursign staff paged regarding anxiety and dyspnea related to his anxiety. Will start Buspar and follow up on Psych evaluation Vitals Vitals Vital Signs Date Time Temp Pulse Resp B/P (MAP) Pulse Ox O2 Delivery O2 Flow Rate FiO2 12/05/19 07:34 100 2.0 12/05/19 07:00 97.6 92 18 163/77 (105) Nasal Cannula 97.6 Physical Exam Lungs: Clear Labs LABS Laboratory Tests Test 12/04/19 12:20 O2 Saturation 96 % (92-99) Arterial Blood pH 7.60 (7.35-7.45) Arterial Blood pCO2 at Patient Temp 27 mmHg (35-46) Arterial Blood pO2 at Patient Temp 86 mmHg (65-108) Arterial Blood HCO3 25 mmol/L (21-28) Arterial Blood Base Excess 4 mmol/L (-3-3) FiO2 21 Comment Review of Relevant I have reviewed the following items karey (where applicable) has been applied. Labs Laboratory Tests Test 12/04/19 12:20 O2 Saturation 96 % (92-99) Arterial Blood pH 7.60 (7.35-7.45) Arterial Blood pCO2 at Patient Temp 27 mmHg (35-46) Arterial Blood pO2 at Patient Temp 86 mmHg (65-108) Arterial Blood HCO3 25 mmol/L (21-28) Arterial Blood Base Excess 4 mmol/L (-3-3) FiO2 21 Laboratory Tests Test 12/04/19 12:20 O2 Saturation 96 % (92-99) Arterial Blood pH 7.60 (7.35-7.45) Arterial Blood pCO2 at Patient Temp 27 mmHg (35-46) Arterial Blood pO2 at Patient Temp 86 mmHg (65-108) Arterial Blood HCO3 25 mmol/L (21-28) Arterial Blood Base Excess 4 mmol/L (-3-3) FiO2 21 Medications Current Medications Lorazepam (Ativan Inj) 1 mg PRN Q6HRS PRN IVP ANXIETY / AGITATION Last administered on 12/04/19 09:16; Start 12/04/19 at 08:00; Stop 12/04/19 at 17:42; Status DC Non-Formulary Medication (Budesonide/ Formoterol Fumarate (Symbicort 160-4.5 Mcg Inhaler)) 2 puff BID IH ; Start 12/04/19 at 21:00; Stop 12/04/19 at 17:52; Status DC Albuterol Sulfate (Ventolin Neb Soln) 2.5 mg Q6H NEB ; Start 12/04/19 at 21:00; Stop 12/04/19 at 18:01; Status DC Budesonide (Pulmicort) 0.5 mg BID NEB Last administered on 12/05/19 07:30; Start 12/04/19 at 21:00 Apixaban (Eliquis) 2.5 mg BID PO Last administered on 12/05/19 09:18; Start 12/04/19 at 21:00 Aspirin (Aspirin Chewable) 81 mg DAILY PO Last administered on 12/05/19 09:21; Start 12/05/19 at 09:00 Clopidogrel Bisulfate (Plavix) 75 mg [id number] PO Last administered on 12/05/19 09:18; Start 12/05/19 at 08:00 Metoprolol Succinate (Toprol Xl) 50 mg HS PO Last administered on 12/04/19 18:59; Start 12/04/19 at 19:00 Minocycline HCl (Minocin) 100 mg BID PO Last administered on 12/05/19 09:19; Start 12/04/19 at 21:00 Alprazolam (Xanax) 0.125 mg PRN Q8HRS PRN PO ANXIETY / AGITATION Last administered on 12/05/19 02:30; Start 12/04/19 at 18:00 Albuterol Sulfate (Ventolin Neb Soln) 2.5 mg [id number] NEB Last administered on 12/05/19 07:31; Start 12/04/19 at 21:00 Alprazolam (Xanax) 0.125 mg 1X ONCE PO Last administered on 9/7/20at 05:57; Start 12/05/19 at 06:00; Stop 12/05/19 at 06:01; Status DC Info (Anti-Coagulation Monitoring By Pharmacy) 1 each PRN DAILY PRN MC SEE COMMENTS Last administered on 12/05/19at 07:44; Start 12/05/19 at 07:45 Active Scripts Active Clopidogrel (Clopidogrel Bisulfate) 75 Mg Tablet 75 Mg PO [id number] 90 Days Culturelle (Lactobacillus Rhamnosus Gg) 1 Each Cap.sprink 1 Cap PO BID 30 Days Reported Metoprolol Succinate ( Xl ) (Metoprolol Succinate) 25 Mg Tab.er.24h 50 Mg PO HS Lipitor (Atorvastatin Calcium) 80 Mg Tablet 80 Mg PO HS Aspirin 81 Mg Tab.chew 1 Tab PO DAILY Minocycline Hcl 100 Mg Tablet 1 Tab PO BID 30 Days Amlodipine Besylate 5 Mg Tablet 5 Mg PO BID Losartan Potassium 25 Mg Tablet 100 Mg PO DAILY Do not take prior to going to dialysis Fish Oil 1,000 mg Softgel ([place]-3/Dha/Epa/Fish Oil) 1,000 Mg Capsule 1,000 Mg PO DAILY Next dose tomorrow 11/16 Sucralfate 1 Gm Tablet 1 Gm PO QID Next dose tonight 11/15 Vitamin D3 (Cholecalciferol (Vitamin D3)) 10 Mcg Tablet 2,000 Units PO DAILY Next dose tomorrow 11/16 Mandi-Debbie Tablet (Folic Acid/Vitamin B Comp W-C) 0.8 Mg Tablet 0.8 Mg PO DAILY Next dose tomorrow 11/16 Isosorbide Mononitrate Er (Isosorbide Mononitrate) 30 Mg Tab.er.24h 30 Mg PO BID Next dose tonight 11/15 Eliquis (Apixaban) 2.5 Mg Tablet 2.5 Mg PO BID Next dose tonight 11/15 Benadryl (Diphenhydramine Hcl) 25 Mg Capsule 50 Mg PO PRN Q6HRS PRN Xanax (Alprazolam) 0.5 Mg Tablet 0.5 Mg PO PRN Q6HRS PRN Flomax (Tamsulosin Hcl) 0.4 Mg Cap.er.24h 0.4 Mg PO BID Next dose tonight 11/15 Pantoprazole Sodium (Pantoprazole Sodium) 40 Mg Tablet.dr 40 Mg PO BID Next dose tomorrow 11/16 Bupropion Xl (Bupropion Hcl) 150 Mg Tab.er.24h 150 Mg PO QAM Next dose tomorrow 11/16 Symbicort 160-4.5 Mcg Inhaler (Budesonide/Formoterol Fumarate) 10.2 Gm Hfa.aer.ad 2 Puff IH BID Ventolin Hfa Inhaler (Albuterol Sulfate) 18 Gm Hfa.aer.ad 2 Puff INH QID Vitals/I & O Vital Sign - Last 24 Hours 12/04/19 12/04/19 12/04/19 12/04/19 10:59 15:00 18:59 19:35 Temp 97.7 98.0 98.0 97.7 98.0 98.0 Pulse 97 94 94 120 Resp 18 20 B/P (MAP) 153/66 (95) 178/94 (122) 178/94 147/89 (108) Pulse Ox 94 95 94 O2 Delivery Room Air Room Air Room Air 12/04/19 12/04/19 12/04/19 12/05/19 20:00 21:17 22:47 03:32 Temp 98.1 98.1 Pulse 93 90 Resp 18 18 B/P (MAP) 152/83 (106) 169/67 (101) Pulse Ox 100 93 100 O2 Delivery Room Air Nasal Cannula Nasal Cannula O2 Flow Rate 2.0 1.0 2.5 12/05/19 12/05/19 07:00 07:34 Temp 97.6 97.6 Pulse 92 Resp 18 B/P (MAP) 163/77 (105) Pulse Ox 100 100 O2 Delivery Nasal Cannula O2 Flow Rate 1.0 2.0 Intake and Output 12/04/19 12/04/19 12/05/19 15:00 23:00 07:00 Intake Total 200 ml 225 ml 200 ml Output Total 100 ml 250 ml Balance 100 ml -25 ml 200 ml Justicifation of Admission Dx: Justifications for Admission: Justification of Admission Dx: Yes BLAIR SHELTON MD Dec 05, 2019 10:23
--- NOTE | 2019-12-05 10:35 | PDOC ---
CARDIOLOGY PROGRESS NOTE SUBJECTIVE: Last night patient was apparently anxious and tachycardic. He did not receive his meds from home yet. This morning his reports that he looks back to normal. patient denies any chest pain. per nursing report, he is doing well and ambulating. OBJECTIVE: Vital Signs/I&O: Vital Signs Date Time Temp Pulse Resp B/P (MAP) Pulse Ox O2 Delivery O2 Flow Rate FiO2 12/05/19 07:34 100 2.0 12/05/19 07:00 97.6 92 18 163/77 (105) Nasal Cannula 97.6 I & O 12/04/19 12/04/19 12/05/19 15:00 23:00 07:00 Intake Total 200 ml 225 ml 200 ml Output Total 100 ml 250 ml Balance 100 ml -25 ml 200 ml Objective: GEN.: No apparent distress. Alert and oriented. HEENT: Head is normocephalic, atraumatic NECK: Supple. LUNGS: Clear to auscultation. HEART: irr irr, S1, S2 present. Peripheral pulses intact ABDOMEN: Soft, nontender. Positive bowel sounds. EXTREMITIES: Without any cyanosis. NEUROLOGIC: Normal speech, normal tone PSYCHIATRIC: Normal affect, normal mood. SKIN: No ulcerations CURRENT MEDICATIONS: Current Medications Medications (Trade) Dose Ordered Sig/Diane Route PRN Reason Start Time Stop Time Status Last Admin Dose Admin Budesonide (Pulmicort) 0.5 mg BID NEB 12/04/19 21:00 12/05/19 07:30 Apixaban (Eliquis) 2.5 mg BID PO 12/04/19 21:00 12/05/19 09:18 Aspirin (Aspirin Chewable) 81 mg DAILY PO 12/05/19 09:00 12/05/19 09:21 Clopidogrel Bisulfate (Plavix) 75 mg DAILYWBKFT PO 12/05/19 08:00 12/05/19 09:18 Metoprolol Succinate (Toprol Xl) 50 mg HS PO 12/04/19 19:00 12/04/19 18:59 Minocycline HCl (Minocin) 100 mg BID PO 12/04/19 21:00 12/05/19 09:19 Alprazolam (Xanax) 0.125 mg PRN Q8HRS PRN PO ANXIETY / AGITATION 12/04/19 18:00 12/05/19 02:30 Albuterol Sulfate (Ventolin Neb Soln) 2.5 mg [id number] NEB 12/04/19 21:00 12/05/19 07:31 Alprazolam (Xanax) 0.125 mg 1X ONCE PO 12/05/19 06:00 12/05/19 06:01 DC 12/05/19 05:57 Info (Anti-Coagulation Monitoring By Pharmacy) 1 each PRN DAILY PRN MC SEE COMMENTS 12/05/19 07:45 12/05/19 07:44 DIAGNOSTIC TESTING: Labs: Laboratory Tests Test 12/04/19 12:20 O2 Saturation 96 % (92-99) Arterial Blood pH 7.60 (7.35-7.45) *H Arterial Blood pCO2 at Patient Temp 27 mmHg (35-46) L Arterial Blood pO2 at Patient Temp 86 mmHg (65-108) Arterial Blood HCO3 25 mmol/L (21-28) Arterial Blood Base Excess 4 mmol/L (-3-3) H FiO2 21 ASSESSMENT: 1. Confusion/delirium/anxiety 2. HTN 3. CAD 4. DLP 5. Chronic afib. PLAN: 1. I reviewed neurology and nephrology notes. -Low suspicion for a primary cardiac process. Per nursing report he is ambulating in the castro ways w/o any pain or dyspnea. He has anxiety which prompts tachycardia, probable sundowning. -Will restart meds, monitor overnight and if stable, ok to DC from CV standpoint. Likely DC ASA in 4 weeks, and continue eliquis and plavix only but for now, continue triple therapy per last dc notes. Thanks. Justicifation of Admission Dx: Justifications for Admission: Justification of Admission Dx: Yes NOELLE LOZOYA MD Dec 05, 2019 10:35
[2019-12-05 11:33] VITALS: BP 153/86
[2019-12-05 12:32] LABS: ALBUMIN 2.2 g/dL (3.4-5.0); ALBUMIN/GLOBULIN RATIO 0.6 (1.0-1.7); BASO % 1 % (0-3); CREATININE 4.1 mg/dL (0.7-1.3); EOS # 0.1 x10^3/uL (0.0-0.7); EOS % 1 % (0-3); GFR 14.2; HEMATOCRIT 28.4 % (39.0-53.0); HEMOGLOBIN 9.4 g/dL (13.0-17.5); LYMPH # 0.9 x10^3/uL (1.0-4.8); LYMPH % 12 % (24-48); MEAN CORPUSCULAR HEMOGLOBIN 32 pg (25-35); MEAN CORPUSCULAR HGB CONC 33 g/dL (31-37); MEAN CORPUSCULAR VOLUME 97 fL (79-100); MONO # 0.7 x10^3/uL (0.0-1.1); MONO % 9 % (0-9); NEUT % 78 % (31-73); PLATELET COUNT 172 x10^3/uL (140-400); RED BLOOD COUNT 2.92 x10^6/uL (4.30-5.70); RED CELL DISTRIBUTION WIDTH 15.4 % (11.5-14.5); TOTAL BILIRUBIN 0.4 mg/dL (0.2-1.0); TOTAL PROTEIN 5.9 g/dL (6.4-8.2); WHITE BLOOD COUNT 7.7 x10^3/uL (4.0-11.0)
[2019-12-05] MEDS: ISOSORBIDE MONONITRATE ER 30 MG TAB.ER.24H PO SCH (14:12)
[2019-12-05] MEDS: LOSARTAN POTASSIUM 50 MG TABLET. PO SCH (14:12)
[2019-12-05] MEDS: amLODIPine BESYLATE 5 MG TABLET PO SCH ×2 (14:12→21:54)
[2019-12-05] MEDS ORDERED: busPIRone 5 MG TABLET. PO PRN (14:30)
[2019-12-05] MEDS ORDERED: ALBUTEROL SULFATE 2.5 MG/3 ML NEBU. NEB PRN (14:30)
--- NOTE | 2019-12-05 14:40 | NUR ---
Pt sitting in room with at bedside. He states "I'm not ready to " and became extremely anxious. Stating he couldn't breathe. O2 sats are 96% on 4L. Pt very anxious and continually rocking back and forth. PRN xanax given. Physician notified and orders for a breathing treatment and buspar PRN given. Son now at bedside. Pt given brown paper bag per physician recommendation. Pt attempted breathing in brown paper bag but quickly refused. After administering PRN xanax and buspar, pt finally calmed down. Will continue to monitor.
[2019-12-05 15:24] VITALS: BP 159/84
--- NOTE | 2019-12-05 16:30 | PDOC1 ---
History & Psych Evaluation Date of Service: DOS: DATE: 12/05/19 TIME: 16:29 Source: Source: Caregiver, Chart review, Patient Identification: Identification 79-year-old gentleman with no prior history of mental health issues admitted with altered mental status and involuntary movements Chief Complaint: Chief Complaint Altered mental status, involuntary movements History of Present Illness: HPI: He is a 79-year-old gentleman with apparently no prior psychiatric history seen for initial psychiatric assessment. He is reportedly struggling with altered mental status and had some involuntary movements of head and upper extremities. Reportedly, recently underwent cardiac catheterization for acute coronary syndr ome and received stenting. He was discharged and returned with abnormal involuntary movements involving mainly upper extremity and face. In addition to that, he received IV Ativan which made him confused. When seen, he appears cooperative and interactive but confused oriented to person and place only. Apparently no abnormal involuntary movements noticed. He denies depression, auditory hallucinations or visual hallucinations. No evidence of day[place] or hypomania. He does endorse anxiety with ongoing current medical issues and circumstances. Denies suicidal or homicidal thoughts. Past Psychiatric History: Patient denies past psychiatric history of mental health challenges. Denies history of suicide attempt or nonsuicidal self-injurious behavior. Past Medical History: Please see medical chart for details. Family History: Family history of mental health challenges denied by patient Social History: Social History: Lives with his . Denies alcohol abuse. Denies illicit substance use. He is a smoker. Denies legal issue Current Medications: Current Medications Current Medications Medications (Trade) Dose Ordered Sig/Diane Start Time Stop Time Status Last Admin Dose Admin Albuterol Sulfate (Ventolin Neb Soln) 2.5 mg PRN Q4HRS PRN 12/05/19 14:30 Alprazolam (Xanax) 0.125 mg 1X ONCE 12/05/19 06:00 12/05/19 06:01 DC 12/05/19 05:57 0.125 MG Amlodipine Besylate (Norvasc) 5 mg BID 12/05/19 11:30 12/05/19 14:12 5 MG Apixaban (Eliquis) 2.5 mg BID 12/04/19 21:00 12/05/19 09:18 2.5 MG Aspirin (Aspirin Chewable) 81 mg DAILY 12/05/19 09:00 9/7/20 09:21 81 MG Budesonide (Pulmicort) 0.5 mg BID 12/04/19 21:00 12/05/19 07:30 0.5 MG Buspirone HCl (Buspar) 5 mg PRN Q12HRS PRN 12/05/19 14:30 12/05/19 14:38 5 MG Clopidogrel Bisulfate (Plavix) 75 mg DAILYWBKFT 12/05/19 08:00 12/05/19 09:18 75 MG Info (Anti-Coagulation Monitoring By Pharmacy) 1 each PRN DAILY PRN 12/05/19 07:45 12/05/19 07:44 1 EACH Isosorbide Mononitrate (Imdur) 30 mg DAILY 12/05/19 11:30 12/05/19 14:12 30 MG Lorazepam (Ativan Inj) 1 mg PRN Q6HRS PRN 12/04/19 08:00 12/04/19 17:42 DC 12/04/19 09:16 1 MG Losartan Potassium (Cozaar) 100 mg DAILY 12/05/19 11:30 12/05/19 14:12 100 MG Metoprolol Succinate (Toprol Xl) 50 mg HS 12/04/19 19:00 12/04/19 18:59 50 MG Minocycline HCl (Minocin) 100 mg BID 12/04/19 21:00 12/05/19 09:19 100 MG Non-Formulary Medication (Budesonide/ Formoterol Fumarate (Symbicort 160-4.5 Mcg Inhaler)) 2 puff BID 12/04/19 21:00 12/04/19 17:52 DC Allergies: Allergies: Coded Allergies: regadenoson (Verified Allergy, Severe, Anaphylaxis, 06/07/19) Iodinated Contrast Media (Verified Allergy, Intermediate, 06/07/19) Nitrofuran Analogues (Verified Allergy, Intermediate, rash, 06/07/19) bumetanide (Verified Allergy, Intermediate, 11/11/19) CKD chlorothiazide (Verified Allergy, Intermediate, 11/11/19) CKD dutasteride (Verified Allergy, Intermediate, rash, 06/07/19) finasteride (Verified Allergy, Intermediate, hives, 06/07/19) furosemide (Verified Allergy, Intermediate, 11/11/19) CKD hydrochlorothiazide (Verified Allergy, Intermediate, 11/11/19) CKD spironolactone (Verified Allergy, Intermediate, 11/11/19) CKD NSAIDS (Non-Steroidal Anti-Inflamma (Verified Adverse Reaction, Intermediate, 06/07/19) CKD Mental Status Examination: Mental Status Examination gentleman appears his stated age, fairly groomed fairly nourished Cooperative and interactive, but confused Oriented to person and place Thought processes goal-directed Denies auditory or visual hallucinations. Denies suicidal or homicidal th oughts. No abnormal perceptions noted Mood is okay Affect is restricted InSight is fair Impulse control is fair Judgment is fair Attention span and concentration fair Recent and remote memory intact ROS: CONSTITUTIONAL: No fever or chills EYES: No recent changes SKIN: No rash or itching CARDIOVASCULAR: No chest pain, syncope, palpitations, or edema RESPIRATORY: No SOB or cough GASTROINTESTINAL: No nausea, vomiting or abdominal pain NEUROLOGICAL: Positive for confusion ENDOCRINE: No cold or heat intolerance GENITOURINARY: No urgency or frequency of urination MUSCULOSKELETAL: No back pain or joint pain LYMPHATICS: No enlarged lymph nodes PSYCHIATRIC: Positive for altered mental status and anxiety Physical Exam: Refer to Physician's note. E [employer]: No focal deficit MSK: No EPS, TDK, or abnormal involuntary movements Vitals: Vitals Vital Signs Date Time Temp Pulse Resp B/P (MAP) Pulse Ox O2 Delivery O2 Flow Rate FiO2 12/05/19 15:24 97.5 116 18 159/84 (109) 93 Nasal Cannula 2.0 97.5 Labs: Labs Laboratory Tests Test 12/04/19 12:20 12/05/19 11:10 O2 Saturation 96 % (92-99) Arterial Blood pH 7.60 (7.35-7.45) Arterial Blood pCO2 at Patient Temp 27 mmHg (35-46) Arterial Blood pO2 at Patient Temp 86 mmHg (65-108) Arterial Blood HCO3 25 mmol/L (21-28) Arterial Blood Base Excess 4 mmol/L (-3-3) FiO2 21 White Blood Count 7.7 x10^3/uL (4.0-11.0) Red Blood Count 2.92 x10^6/uL (4.30-5.70) Hemoglobin 9.4 g/dL (13.0-17.5) Hematocrit 28.4 % (39.0-53.0) Mean Corpuscular Volume 97 fL (79-100) Mean Corpuscular Hemoglobin 32 pg (25-35) Mean Corpuscular Hemoglobin Concent 33 g/dL (31-37) Red Cell Distribution Width 15.4 % (11.5-14.5) Platelet Count 172 x10^3/uL (140-400) Neutrophils (%) (Auto) 78 % (31-73) Lymphocytes (%) (Auto) 12 % (24-48) Monocytes (%) (Auto) 9 % (0-9) Eosinophils (%) (Auto) 1 % (0-3) Basophils (%) (Auto) 1 % (0-3) Neutrophils # (Auto) 6.0 x10^3/uL (1.8-7.7) Lymphocytes # (Auto) 0.9 x10^3/uL (1.0-4.8) Monocytes # (Auto) 0.7 x10^3/uL (0.0-1.1) Eosinophils # (Auto) 0.1 x10^3/uL (0.0-0.7) Basophils # (Auto) 0.0 x10^3/uL (0.0-0.2) Sodium Level 139 mmol/L (136-145) Potassium Level 4.0 mmol/L (3.5-5.1) Chloride Level 101 mmol/L (98-107) Carbon Dioxide Level 31 mmol/L (21-32) Anion Gap 7 (6-14) Blood Urea Nitrogen 46 mg/dL (8-26) Creatinine 4.1 mg/dL (0.7-1.3) Estimated GFR (Cockcroft-Gault) 14.2 BUN/Creatinine Ratio 11 (6-20) Glucose Level 128 mg/dL (70-99) Calcium Level 8.0 mg/dL (8.5-10.1) Total Bilirubin 0.4 mg/dL (0.2-1.0) Aspartate Amino Transf (AST/SGOT) 46 U/L (15-37) Alanine Aminotransferase (ALT/SGPT) 67 U/L (16-63) Alkaline Phosphatase 121 U/L (46-116) Total Protein 5.9 g/dL (6.4-8.2) Albumin 2.2 g/dL (3.4-5.0) Albumin/Globulin Ratio 0.6 (1.0-1.7) Vitamin B12 Level 934 pg/mL (247-911) Laboratory Tests Test 12/05/19 11:10 White Blood Count 7.7 x10^3/uL (4.0-11.0) Red Blood Count 2.92 x10^6/uL (4.30-5.70) Hemoglobin 9.4 g/dL (13.0-17.5) Hematocrit 28.4 % (39.0-53.0) Mean Corpuscular Volume 97 fL (79-100) Mean Corpuscular Hemoglobin 32 pg (25-35) Mean Corpuscular Hemoglobin Concent 33 g/dL (31-37) Red Cell Distribution Width 15.4 % (11.5-14.5) Platelet Count 172 x10^3/uL (140-400) Neutrophils (%) (Auto) 78 % (31-73) Lymphocytes (%) (Auto) 12 % (24-48) Monocytes (%) (Auto) 9 % (0-9) Eosinophils (%) (Auto) 1 % (0-3) Basophils (%) (Auto) 1 % (0-3) Neutrophils # (Auto) 6.0 x10^3/uL (1.8-7.7) Lymphocytes # (Auto) 0.9 x10^3/uL (1.0-4.8) Monocytes # (Auto) 0.7 x10^3/uL (0.0-1.1) Eosinophils # (Auto) 0.1 x10^3/uL (0.0-0.7) Basophils # (Auto) 0.0 x10^3/uL (0.0-0.2) Sodium Level 139 mmol/L (136-145) Potassium Level 4.0 mmol/L (3.5-5.1) Chloride Level 101 mmol/L (98-107) Carbon Dioxide Level 31 mmol/L (21-32) Anion Gap 7 (6-14) Blood Urea Nitrogen 46 mg/dL (8-26) Creatinine 4.1 mg/dL (0.7-1.3) Estimated GFR (Cockcroft-Gault) 14.2 BUN/Creatinine Ratio 11 (6-20) Glucose Level 128 mg/dL (70-99) Calcium Level 8.0 mg/dL (8.5-10.1) Total Bilirubin 0.4 mg/dL (0.2-1.0) Aspartate Amino Transf (AST/SGOT) 46 U/L (15-37) Alanine Aminotransferase (ALT/SGPT) 67 U/L (16-63) Alkaline Phosphatase 121 U/L (46-116) Total Protein 5.9 g/dL (6.4-8.2) Albumin 2.2 g/dL (3.4-5.0) Albumin/Globulin Ratio 0.6 (1.0-1.7) Vitamin B12 Level 934 pg/mL (247-911) Diagnosis: Diagnosis: 1. Acute delirium, likely hypoactive likely multifactorial 2. Unspecified anxiety disorder rule out generalized anxiety 3. 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 He has a previous incident similar to that. In addition to that, CT scan is consistent with chronic microvascular changes of the brain which signify vascular etiology of underlying neurovascular disorder which predispose him for delirium. It is reasonable to add low-dose antipsychotic to resolve delirium which can be discontinued once it is resolved. Plan: Start risperidone 1 mg at bedtime further resolution of delirium. Applied delirium protocol, avoid sundowning during daytime. Avoid daytime naps. Risks, benefits, alternatives of the treatment are discussed. He is in agreement with plan and voiced understanding. Adverse drug reaction of the medication including black box warning are also discussed. Monitor for confusion, symptomatology, and safety. We will adjust medications accordingly. Avoid sedatives and hypnotics Thank you for involving inpatient care. OTF BERRIOS MD Dec 05, 2019 16:30
[2019-12-05] MEDS ORDERED: ALPRAZolam 0.25 MG TABLET PO PRN (17:45)
--- NOTE | 2019-12-05 17:47 | PDOC ---
PROGRESS NOTES Date of Service DATE: 12/05/19 TIME: 17:43 Assessment 1. Generalized anxiety disorder-he is having recurrent panic attacks with hyperventilation and tachycardia where he thinks he is going to . He was given Xanax and bupropion which finally helped terminate the tach. He has been evaluated by cardiology who does not feel that he has a particular cardiac etiology or pulmonary embolus. He was on Wellbutrin at home which has not been restarted. It is possible the attacks are being exacerbated by drug withdrawal. 2. He has had difficulty in the past following procedures. He has had prolonged episodes of confusion. I strongly suspect he has an underlying dementia so a very low threshold for becoming encephalopathic. This cannot be addressed during an acute episode but could be evaluated as an outpatient. Plan 1. I have restarted Wellbutrin XL 150 mg daily. I have increased alprazolam to 0.25 mg every 8 hours as needed. He would be well served by working with psychiatry. He may be dismissed home from a neurologic perspective when medic ally stable. Subjective I thought I was going to . I was feeling short of breath and could not get any air. The nurses gave me Xanax and BuSpar and it was helpful. I am feeling better now. Objective Vital Signs Date Time Temp Pulse Resp B/P (MAP) Pulse Ox O2 Delivery O2 Flow Rate FiO2 12/05/19 15:24 97.5 116 18 159/84 (109) 93 Nasal Cannula 2.0 97.5 Intake and Output 12/05/19 07:00 Intake Total 625 ml Output Total 350 ml Balance 275 ml Intake Oral 625 ml Output Urine Total 350 ml PHYSICAL EXAM He was alert, awake and cooperative. Speech was fluent and clear. He had a good fund of recent and remote knowledge. Attention and concentration was intact. Cranial nerves II through XII were intact. Muscle bulk and tone was normal. There was no arm or leg drift. Power was full and symmetric in upper and lower extremities. Coordination testing with [id number] and [id number] was well performed. Sensory examination was intact to light touch. Review of Relevant I have reviewed the following items karey (where applicable) has been applied. Labs Laboratory Tests Test 12/04/19 12:20 12/05/19 11:10 O2 Saturation 96 % (92-99) Arterial Blood pH 7.60 (7.35-7.45) Arterial Blood pCO2 at Patient Temp 27 mmHg (35-46) Arterial Blood pO2 at Patient Temp 86 mmHg (65-108) Arterial Blood HCO3 25 mmol/L (21-28) Arterial Blood Base Excess 4 mmol/L (-3-3) FiO2 21 White Blood Count 7.7 x10^3/uL (4.0-11.0) Red Blood Count 2.92 x10^6/uL (4.30-5.70) Hemoglobin 9.4 g/dL (13.0-17.5) Hematocrit 28.4 % (39.0-53.0) Mean Corpuscular Volume 97 fL (79-100) Mean Corpuscular Hemoglobin 32 pg (25-35) Mean Corpuscular Hemoglobin Concent 33 g/dL (31-37) Red Cell Distribution Width 15.4 % (11.5-14.5) Platelet Count 172 x10^3/uL (140-400) Neutrophils (%) (Auto) 78 % (31-73) Lymphocytes (%) (Auto) 12 % (24-48) Monocytes (%) (Auto) 9 % (0-9) Eosinophils (%) (Auto) 1 % (0-3) Basophils (%) (Auto) 1 % (0-3) Neutrophils # (Auto) 6.0 x10^3/uL (1.8-7.7) Lymphocytes # (Auto) 0.9 x10^3/uL (1.0-4.8) Monocytes # (Auto) 0.7 x10^3/uL (0.0-1.1) Eosinophils # (Auto) 0.1 x10^3/uL (0.0-0.7) Basophils # (Auto) 0.0 x10^3/uL (0.0-0.2) Sodium Level 139 mmol/L (136-145) Potassium Level 4.0 mmol/L (3.5-5.1) Chloride Level 101 mmol/L (98-107) Carbon Dioxide Level 31 mmol/L (21-32) Anion Gap 7 (6-14) Blood Urea Nitrogen 46 mg/dL (8-26) Creatinine 4.1 mg/dL (0.7-1.3) Estimated GFR (Cockcroft-Gault) 14.2 BUN/Creatinine Ratio 11 (6-20) Glucose Level 128 mg/dL (70-99) Calcium Level 8.0 mg/dL (8.5-10.1) Total Bilirubin 0.4 mg/dL (0.2-1.0) Aspartate Amino Transf (AST/SGOT) 46 U/L (15-37) Alanine Aminotransferase (ALT/SGPT) 67 U/L (16-63) Alkaline Phosphatase 121 U/L (46-116) Total Protein 5.9 g/dL (6.4-8.2) Albumin 2.2 g/dL (3.4-5.0) Albumin/Globulin Ratio 0.6 (1.0-1.7) Vitamin B12 Level 934 pg/mL (247-911) Laboratory Tests Test 12/05/19 11:10 White Blood Count 7.7 x10^3/uL (4.0-11.0) Red Blood Count 2.92 x10^6/uL (4.30-5.70) Hemoglobin 9.4 g/dL (13.0-17.5) Hematocrit 28.4 % (39.0-53.0) Mean Corpuscular Volume 97 fL (79-100) Mean Corpuscular Hemoglobin 32 pg (25-35) Mean Corpuscular Hemoglobin Concent 33 g/dL (31-37) Red Cell Distribution Width 15.4 % (11.5-14.5) Platelet Count 172 x10^3/uL (140-400) Neutrophils (%) (Auto) 78 % (31-73) Lymphocytes (%) (Auto) 12 % (24-48) Monocytes (%) (Auto) 9 % (0-9) Eosinophils (%) (Auto) 1 % (0-3) Basophils (%) (Auto) 1 % (0-3) Neutrophils # (Auto) 6.0 x10^3/uL (1.8-7.7) Lymphocytes # (Auto) 0.9 x10^3/uL (1.0-4.8) Monocytes # (Auto) 0.7 x10^3/uL (0.0-1.1) Eosinophils # (Auto) 0.1 x10^3/uL (0.0-0.7) Basophils # (Auto) 0.0 x10^3/uL (0.0-0.2) Sodium Level 139 mmol/L (136-145) Potassium Level 4.0 mmol/L (3.5-5.1) Chloride Level 101 mmol/L (98-107) Carbon Dioxide Level 31 mmol/L (21-32) Anion Gap 7 (6-14) Blood Urea Nitrogen 46 mg/dL (8-26) Creatinine 4.1 mg/dL (0.7-1.3) Estimated GFR (Cockcroft-Gault) 14.2 BUN/Creatinine Ratio 11 (6-20) Glucose Level 128 mg/dL (70-99) Calcium Level 8.0 mg/dL (8.5-10.1) Total Bilirubin 0.4 mg/dL (0.2-1.0) Aspartate Amino Transf (AST/SGOT) 46 U/L (15-37) Alanine Aminotransferase (ALT/SGPT) 67 U/L (16-63) Alkaline Phosphatase 121 U/L (46-116) Total Protein 5.9 g/dL (6.4-8.2) Albumin 2.2 g/dL (3.4-5.0) Albumin/Globulin Ratio 0.6 (1.0-1.7) Vitamin B12 Level 934 pg/mL (247-911) Medications Current Medications Lorazepam (Ativan Inj) 1 mg PRN Q6HRS PRN IVP ANXIETY / AGITATION Last administered on 12/04/19at 09:16; Start 12/04/19 at 08:00; Stop 12/04/19 at 17:42; Status DC Non-Formulary Medication (Budesonide/ Formoterol Fumarate (Symbicort 160-4.5 Mcg Inhaler)) 2 puff BID IH ; Start 12/04/19 at 21:00; Stop 12/04/19 at 17:52; Status DC Albuterol Sulfate (Ventolin Neb Soln) 2.5 mg Q6H NEB ; Start 12/04/19 at 21:00; Stop 12/04/19 at 18:01; Status DC Budesonide (Pulmicort) 0.5 mg BID NEB Last administered on 12/05/19at 07:30; Start 12/04/19 at 21:00 Apixaban (Eliquis) 2.5 mg BID PO Last administered on 12/05/19at 09:18; Start 12/04/19 at 21:00 Aspirin (Aspirin Chewable) 81 mg DAILY PO Last administered on 12/05/19 09:21; Start 12/05/19 at 09:00 Clopidogrel Bisulfate (Plavix) 75 mg DAILYWBKFT PO Last administered on 12/05/19 09:18; Start 12/05/19 at 08:00 Metoprolol Succinate (Toprol Xl) 50 mg HS PO Last administered on 12/04/19at 18:59; Start 12/04/19 at 19:00 Minocycline HCl (Minocin) 100 mg BID PO Last administered on 12/05/19 09:19; S tart 12/04/19 at 21:00 Alprazolam (Xanax) 0.125 mg PRN Q8HRS PRN PO ANXIETY / AGITATION Last administered on 12/05/19 14:10; Start 12/04/19 at 18:00 Albuterol Sulfate (Ventolin Neb Soln) 2.5 mg [id number] NEB Last administered on 12/05/19 14:38; Start 12/04/19 at 21:00 Alprazolam (Xanax) 0.125 mg 1X ONCE PO Last administered on 12/05/19 05:57; Start 12/05/19 at 06:00; Stop 12/05/19 at 06:01; Status DC Info (Anti-Coagulation Monitoring By Pharmacy) 1 each PRN DAILY PRN MC SEE COMMENTS Last administered on 12/05/19at 07:44; Start 12/05/19 at 07:45 Losartan Potassium (Cozaar) 100 mg DAILY PO Last administered on 12/05/19 14:12; Start 12/05/19 at 11:30 Isosorbide Mononitrate (Imdur) 30 mg DAILY PO Last administered on 12/05/19 14:12; Start 12/05/19 at 11:30 Amlodipine Besylate (Norvasc) 5 mg BID PO Last administered on 12/05/19 14:12; Start 12/05/19 at 11:30 Albuterol Sulfate (Ventolin Neb Soln) 2.5 mg PRN Q4HRS PRN NEB SHORTNESS OF BREATH; Start 12/05/19 at 14:30 Buspirone HCl (Buspar) 5 mg PRN Q12HRS PRN PO anxiety Last administered on 12/05/19at 14:38; Start 12/05/19 at 14:30 Active Scripts Active Clopidogrel (Clopidogrel Bisulfate) 75 Mg Tablet 75 Mg PO DAILYWBKFT 90 Days Culturelle (Lactobacillus Rhamnosus Gg) 1 Each Cap.sprink 1 Cap PO BID 30 Days Reported Metoprolol Succinate ( Xl ) (Metoprolol Succinate) 25 Mg Tab.er.24h 50 Mg PO HS Lipitor (Atorvastatin Calcium) 80 Mg Tablet 80 Mg PO HS Aspirin 81 Mg Tab.chew 1 Tab PO DAILY Minocycline Hcl 100 Mg Tablet 1 Tab PO BID 30 Days Amlodipine Besylate 5 Mg Tablet 5 Mg PO BID Losartan Potassium 25 Mg Tablet 100 Mg PO DAILY Do not take prior to going to dialysis Fish Oil 1,000 mg Softgel (Providence-3/Dha/Epa/Fish Oil) 1,000 Mg Capsule 1,000 Mg PO DAILY Next dose tomorrow 11/16 Sucralfate 1 Gm Tablet 1 Gm PO QID Next dose tonight 11/15 Vitamin D3 (Cholecalciferol (Vitamin D3)) 10 Mcg Tablet 2,000 Units PO DAILY Next dose tomorrow 11/16 Mandi-Debbie Tablet (Folic Acid/Vitamin B Comp W-C) 0.8 Mg Tablet 0.8 Mg PO DAILY Next dose tomorrow 11/16 Isosorbide Mononitrate Er (Isosorbide Mononitrate) 30 Mg Tab.er.24h 30 Mg PO BID Next dose tonight 11/15 Eliquis (Apixaban) 2.5 Mg Tablet 2.5 Mg PO BID Next dose tonight 11/15 Benadryl (Diphenhydramine Hcl) 25 Mg Capsule 50 Mg PO PRN Q6HRS PRN Xanax (Alprazolam) 0.5 Mg Tablet 0.5 Mg PO PRN Q6HRS PRN Flomax (Tamsulosin Hcl) 0.4 Mg Cap.er.24h 0.4 Mg PO BID Next dose ton11/15 Pantoprazole Sodium (Pantoprazole Sodium) 40 Mg Tablet.dr 40 Mg PO BID Next dose tomorrow 11/16 Bupropion Xl (Bupropion Hcl) 150 Mg Tab.er.24h 150 Mg PO QAM Next dose tomorrow 11/16 Symbicort 160-4.5 Mcg Inhaler (Budesonide/Formoterol Fumarate) 10.2 Gm Hfa.aer.ad 2 Puff IH BID Ventolin Hfa Inhaler (Albuterol Sulfate) 18 Gm Hfa.aer.ad 2 Puff INH QID Vitals/I & O Vital Sign - Last 24 Hours 12/04/19 12/04/19 12/04/19 12/04/19 18:59 19:35 20:00 21:17 Temp 98.0 98.0 Pulse 94 120 Resp 20 B/P (MAP) 178/94 147/89 (108) Pulse Ox 94 100 O2 Delivery Room Air Room Air O2 Flow Rate 2.0 12/04/19 12/05/19 12/05/19 12/05/19 22:47 03:32 07:00 07:34 Temp 98.1 97.6 98.1 97.6 Pulse 93 90 92 Resp 18 18 18 B/P (MAP) 152/83 (106) 169/67 (101) 163/77 (105) Pulse Ox 93 100 100 100 O2 Delivery Nasal Cannula Nasal Cannula Nasal Cannula O2 Flow Rate 1.0 2.5 1.0 2.0 12/05/19 12/05/19 12/05/19 12/05/19 08:00 11:27 11:33 14:12 Temp 97.6 97.6 Pulse 107 107 Resp 18 B/P (MAP) 153/86 (108) 153/86 Pulse Ox 92 O2 Delivery Room Air Room Air Nasal Cannula O2 Flow Rate 1.0 12/05/19 12/05/19 12/05/19 12/05/19 14:12 14:12 14:53 15:24 Temp 97.5 97.5 Pulse 107 107 116 Resp 18 B/P (MAP) 153/86 153/86 159/84 (109) Pulse Ox 93 O2 Delivery Nasal Cannula Nasal Cannula O2 Flow Rate 2.0 2.0 Intake and Output 12/04/19 12/04/19 12/05/19 15:00 23:00 07:00 Intake Total 200 ml 225 ml 200 ml Output Total 100 ml 250 ml Balance 100 ml -25 ml 200 ml Justicifation of Admission Dx: Justifications for Admission: Justification of Admission Dx: Yes CARLA ROGERS MD Dec 05, 2019 17:47
[2019-12-05] MEDS: buPROPion XL 150 MG TAB.ER.24H. PO SCH (18:58)
[2019-12-05 19:49] VITALS: BP 172/84
[2019-12-05] MEDS ORDERED: risperiDONE 1 MG TABLET. PO SCH ×2 (21:00→23:30)
[2019-12-05] MEDS: METOPROLOL SUCC 24HR ER 50 MG TAB.ER.24H. PO SCH (21:55)
[2019-12-05 22:16] VITALS: BP 204/96
[2019-12-06 03:00] VITALS: BP 162/82
[2019-12-06 07:00] VITALS: BP 142/73
[2019-12-06] MEDS: ALBUTEROL SULFATE 2.5 MG/3 ML NEBU. NEB SCH ×2 (07:34→15:25)
[2019-12-06] MEDS ORDERED: BUDESONIDE 0.5 MG/2 ML NEBU. NEB SCH (08:00)
--- NOTE | 2019-12-06 10:16 | NUR ---
SS following for discharge planning. SS reviewed pt chart and discussed with pt RN. Pt is from home with spouse and is currently on room air. Pt has outpatient dialysis at [facility], ; fax [phone], Thursday, , and Thursday. SS will continue to follow for discharge planning.
--- NOTE | 2019-12-06 10:54 | PDOC ---
PROGRESS NOTES Date of Service DATE: 12/06/19 TIME: 10:48 Assessment No evidence of epileptic seizures Generalized anxiety disorder, panic attack Probable underlying dementia Metabolic encephalopathy Hypertension, coronary artery disease, end-stage renal disease on hemodialysis, history of atrial fibrillation on Eliquis He has been on 1:1 nursing Plan Restarted Wellbutrin XL 150 mg daily. Increased alprazolam to 0.25 mg every 8 hours as needed Psychiatry also following, patient is on whispered all and BuSpar Okay for discharge from neurological perspective Follow-up with neurology as needed, especially if he shows evidence of dementia at home Subjective No complaints Objective Vital Signs Date Time Temp Pulse Resp B/P (MAP) Pulse Ox O2 Delivery O2 Flow Rate FiO2 12/06/19 08:00 Room Air 12/06/19 07:37 94 3.0 12/06/19 07:00 97.8 96 20 142/73 (96) 97.8 Intake and Output 12/06/19 07:00 Intake Total 570 ml Output Total 300 ml Balance 270 ml Intake Oral 570 ml Output Urine Total 300 ml # Voids 3 # Bowel Movements 1 PHYSICAL EXAM Alert. Oriented to time, place and person. PERRL. EOMI. CN: no focal findings. Muscle tone: normal. Muscle strength: 5/5 DTR: 2+ Plantar reflex: flexor Gait: not examined in bed. Sensory exam: no abnormal findings. No cerebellar signs elicited. Review of Relevant I have reviewed the following items karey (where applicable) has been applied. Labs Laboratory Tests Test 12/04/19 12:20 12/05/19 11:10 O2 Saturation 96 % (92-99) Arterial Blood pH 7.60 (7.35-7.45) Arterial Blood pCO2 at Patient Temp 27 mmHg (35-46) Arterial Blood pO2 at Patient Temp 86 mmHg (65-108) Arterial Blood HCO3 25 mmol/L (21-28) Arterial Blood Base Excess 4 mmol/L (-3-3) FiO2 21 White Blood Count 7.7 x10^3/uL (4.0-11.0) Red Blood Count 2.92 x10^6/uL (4.30-5.70) Hemoglobin 9.4 g/dL (13.0-17.5) Hematocrit 28.4 % (39.0-53.0) Mean Corpuscular Volume 97 fL (79-100) Mean Corpuscular Hemoglobin 32 pg (25-35) Mean Corpuscular Hemoglobin Concent 33 g/dL (31-37) Red Cell Distribution Width 15.4 % (11.5-14.5) Platelet Count 172 x10^3/uL (140-400) Neutrophils (%) (Auto) 78 % (31-73) Lymphocytes (%) (Auto) 12 % (24-48) Monocytes (%) (Auto) 9 % (0-9) Eosinophils (%) (Auto) 1 % (0-3) Basophils (%) (Auto) 1 % (0-3) Neutrophils # (Auto) 6.0 x10^3/uL (1.8-7.7) Lymphocytes # (Auto) 0.9 x10^3/uL (1.0-4.8) Monocytes # (Auto) 0.7 x10^3/uL (0.0-1.1) Eosinophils # (Auto) 0.1 x10^3/uL (0.0-0.7) Basophils # (Auto) 0.0 x10^3/uL (0.0-0.2) Sodium Level 139 mmol/L (136-145) Potassium Level 4.0 mmol/L (3.5-5.1) Chloride Level 101 mmol/L (98-107) Carbon Dioxide Level 31 mmol/L (21-32) Anion Gap 7 (6-14) Blood Urea Nitrogen 46 mg/dL (8-26) Creatinine 4.1 mg/dL (0.7-1.3) Estimated GFR (Cockcroft-Gault) 14.2 BUN/Creatinine Ratio 11 (6-20) Glucose Level 128 mg/dL (70-99) Calcium Level 8.0 mg/dL (8.5-10.1) Total Bilirubin 0.4 mg/dL (0.2-1.0) Aspartate Amino Transf (AST/SGOT) 46 U/L (15-37) Alanine Aminotransferase (ALT/SGPT) 67 U/L (16-63) Alkaline Phosphatase 121 U/L (46-116) Total Protein 5.9 g/dL (6.4-8.2) Albumin 2.2 g/dL (3.4-5.0) Albumin/Globulin Ratio 0.6 (1.0-1.7) Vitamin B12 Level 934 pg/mL (247-911) Laboratory Tests Test 12/05/19 11:10 White Blood Count 7.7 x10^3/uL (4.0-11.0) Red Blood Count 2.92 x10^6/uL (4.30-5.70) Hemoglobin 9.4 g/dL (13.0-17.5) Hematocrit 28.4 % (39.0-53.0) Mean Corpuscular Volume 97 fL (79-100) Mean Corpuscular Hemoglobin 32 pg (25-35) Mean Corpuscular Hemoglobin Concent 33 g/dL (31-37) Red Cell Distribution Width 15.4 % (11.5-14.5) Platelet Count 172 x10^3/uL (140-400) Neutrophils (%) (Auto) 78 % (31-73) Lymphocytes (%) (Auto) 12 % (24-48) Monocytes (%) (Auto) 9 % (0-9) Eosinophils (%) (Auto) 1 % (0-3) Basophils (%) (Auto) 1 % (0-3) Neutrophils # (Auto) 6.0 x10^3/uL (1.8-7.7) Lymphocytes # (Auto) 0.9 x10^3/uL (1.0-4.8) Monocytes # (Auto) 0.7 x10^3/uL (0.0-1.1) Eosinophils # (Auto) 0.1 x10^3/uL (0.0-0.7) Basophils # (Auto) 0.0 x10^3/uL (0.0-0.2) Sodium Level 139 mmol/L (136-145) Potassium Level 4.0 mmol/L (3.5-5.1) Chloride Level 101 mmol/L (98-107) Carbon Dioxide Level 31 mmol/L (21-32) Anion Gap 7 (6-14) Blood Urea Nitrogen 46 mg/dL (8-26) Creatinine 4.1 mg/dL (0.7-1.3) Estimated GFR (Cockcroft-Gault) 14.2 BUN/Creatinine Ratio 11 (6-20) Glucose Level 128 mg/dL (70-99) Calcium Level 8.0 mg/dL (8.5-10.1) Total Bilirubin 0.4 mg/dL (0.2-1.0) Aspartate Amino Transf (AST/SGOT) 46 U/L (15-37) Alanine Aminotransferase (ALT/SGPT) 67 U/L (16-63) Alkaline Phosphatase 121 U/L (46-116) Total Protein 5.9 g/dL (6.4-8.2) Albumin 2.2 g/dL (3.4-5.0) Albumin/Globulin Ratio 0.6 (1.0-1.7) Vitamin B12 Level 934 pg/mL (247-911) Medications Current Medications Lorazepam (Ativan Inj) 1 mg PRN Q6HRS PRN IVP ANXIETY / AGITATION Last administered on 12/04/19 09:16; Start 12/04/19 at 08:00; Stop 12/04/19 at 17:42; Status DC Non-Formulary Medication (Budesonide/ Formoterol Fumarate (Symbicort 160-4.5 Mcg Inhaler)) 2 puff BID IH ; Start 12/04/19 at 21:00; Stop 12/04/19 at 17:52; Status DC Albuterol Sulfate (Ventolin Neb Soln) 2.5 mg Q6H NEB ; Start 12/04/19 at 21:00; Stop 12/04/19 at 18:01; Status DC Budesonide (Pulmicort) 0.5 mg BID NEB Last administered on 12/05/19at 20:07; Start 12/04/19 at 21:00; Stop 12/05/19 at 20:59; Status DC Apixaban (Eliquis) 2.5 mg BID PO Last administered on 12/05/19at 21:55; Start 12/04/19 at 21:00 Aspirin (Aspirin Chewable) 81 mg DAILY PO Last administered on 12/05/19 09:21; Start 12/05/19 at 09:00 Clopidogrel Bisulfate (Plavix) 75 mg DAILYWBKFT PO Last administered on 12/05/19 09:18; Start 12/05/19 at 08:00 Metoprolol Succinate (Toprol Xl) 50 mg HS PO Last administered on 12/05/19 21:55; Start 12/04/19 at 19:00 Minocycline HCl (Minocin) 100 mg BID PO Last administered on 9/7/20at 21:55; Start 12/04/19 at 21:00 Alprazolam (Xanax) 0.125 mg PRN Q8HRS PRN PO ANXIETY / AGITATION Last administered on 12/05/19at 14:10; Start 12/04/19 at 18:00; Stop 12/05/19 at 17:43; Status DC Albuterol Sulfate (Ventolin Neb Soln) 2.5 mg [id number] NEB Last administered on 12/05/19at 20:08; Start 12/04/19 at 21:00; Stop 12/05/19 at 20:53; Status DC Alprazolam (Xanax) 0.125 mg 1X ONCE PO Last administered on 12/05/19at 05:57; Start 12/05/19 at 06:00; Stop 12/05/19 at 06:01; Status DC Info (Anti-Coagulation Monitoring By Pharmacy) 1 each PRN DAILY PRN MC SEE COMMENTS Last administered on 12/05/19at 07:44; Start 12/05/19 at 07:45 Losartan Potassium (Cozaar) 100 mg DAILY PO Last administered on 12/05/19at 14:12; Start 12/05/19 at 11:30 Isosorbide Mononitrate (Imdur) 30 mg DAILY PO Last administered on 12/05/19at 14:12; Start 12/05/19 at 11:30 Amlodipine Besylate (Norvasc) 5 mg BID PO Last administered on 12/05/19at 21:54; Start 12/05/19 at 11:30 Albuterol Sulfate (Ventolin Neb Soln) 2.5 mg PRN Q4HRS PRN NEB SHORTNESS OF BREATH Last administered on 12/05/19at 22:42; Start 12/05/19 at 14:30 Buspirone HCl (Buspar) 5 mg PRN Q12HRS PRN PO anxiety Last administered on 12/05/19at 14:38; Start 12/05/19 at 14:30 Alprazolam (Xanax) 0.25 mg PRN Q8HRS PRN PO ANXIETY / AGITATION; Start 12/05/19 at 17:45 Bupropion HCl (Wellbutrin Xl) 150 mg DAILY PO Last administered on 12/05/19at 18:58; Start 12/05/19 at 18:30 Risperidone (RisperDAL) 1 mg QHS PO Last administered on 12/05/19at 21:55; Start 12/05/19 at 21:00 Albuterol Sulfate (Ventolin Neb Soln) 2.5 mg QID NEB Last administered on 12/06/19at 07:34; Start 12/06/19 at 07:00 Budesonide (Pulmicort) 0.5 mg RTBID NEB Last administered on 12/06/19at 07:36; Start 12/06/19 at 08:00 Risperidone (RisperDAL) 1 mg HS PO ; Start 12/05/19 at 23:30; Stop 12/05/19 at 23:31; Status DC Active Scripts Active Clopidogrel (Clopidogrel Bisulfate) 75 Mg Tablet 75 Mg PO DAILYWBKFT 90 Days Culturelle (Lactobacillus Rhamnosus Gg) 1 Each Cap.sprink 1 Cap PO BID 30 Days Reported Metoprolol Succinate ( Xl ) (Metoprolol Succinate) 25 Mg Tab.er.24h 50 Mg PO HS Lipitor (Atorvastatin Calcium) 80 Mg Tablet 80 Mg PO HS Aspirin 81 Mg Tab.chew 1 Tab PO DAILY Minocycline Hcl 100 Mg Tablet 1 Tab PO BID 30 Days Amlodipine Besylate 5 Mg Tablet 5 Mg PO BID Losartan Potassium 25 Mg Tablet 100 Mg PO DAILY Do not take prior to going to dialysis Fish Oil 1,000 mg Softgel ([place]-3/Dha/Epa/Fish Oil) 1,000 Mg Capsule 1,000 Mg PO DAILY Next dose tomorrow 11/16 Sucralfate 1 Gm Tablet 1 Gm PO QID Next dose ton11/15 Vitamin D3 (Cholecalciferol (Vitamin D3)) 10 Mcg Tablet 2,000 Units PO DAILY Next dose tomorrow 11/16 Mandi-Debbie Tablet (Folic Acid/Vitamin B Comp W-C) 0.8 Mg Tablet 0.8 Mg PO DAILY Next dose tomorrow 11/16 Isosorbide Mononitrate Er (Isosorbide Mononitrate) 30 Mg Tab.er.24h 30 Mg PO BID Next dose ton11/15 Eliquis (Apixaban) 2.5 Mg Tablet 2.5 Mg PO BID Next dose tonight 11/15 Benadryl (Diphenhydramine Hcl) 25 Mg Capsule 50 Mg PO PRN Q6HRS PRN Xanax (Alprazolam) 0.5 Mg Tablet 0.5 Mg PO PRN Q6HRS PRN Flomax (Tamsulosin Hcl) 0.4 Mg Cap.er.24h 0.4 Mg PO BID Next dose tonight 11/15 Pantoprazole Sodium (Pantoprazole Sodium) 40 Mg Tablet.dr 40 Mg PO BID Next dose tomorrow 11/16 Bupropion Xl (Bupropion Hcl) 150 Mg Tab.er.24h 150 Mg PO QAM Next dose tomorrow 11/16 Symbicort 160-4.5 Mcg Inhaler (Budesonide/Formoterol Fumarate) 10.2 Gm Hfa.aer.ad 2 Puff IH BID Ventolin Hfa Inhaler (Albuterol Sulfate) 18 Gm Hfa.aer.ad 2 Puff INH QID Vitals/I & O Vital Sign - Last 24 Hours 12/05/19 12/05/19 12/05/19 12/05/19 11:27 11:33 14:12 14:12 Temp 97.6 97.6 Pulse 107 107 107 Resp 18 B/P (MAP) 153/86 (108) 153/86 153/86 Pulse Ox 92 O2 Delivery Room Air Nasal Cannula O2 Flow Rate 1.0 12/05/19 12/05/19 12/05/19 12/05/19 14:12 14:53 15:24 19:49 Temp 97.5 97.9 97.5 97.9 Pulse 107 116 85 Resp 18 18 B/P (MAP) 153/86 159/84 (109) 172/84 (113) Pulse Ox 93 94 O2 Delivery Nasal Cannula Nasal Cannula Nasal Cannula O2 Flow Rate 2.0 2.0 2.0 12/05/19 12/05/19 12/05/19 12/05/19 20:00 20:17 21:54 21:55 Pulse 85 85 B/P (MAP) 172/84 172/84 Pulse Ox 97 O2 Delivery Room Air Nasal Cannula O2 Flow Rate 4.0 12/05/19 12/05/19 12/06/19 12/06/19 22:16 22:43 03:00 07:00 Temp 98.5 98.0 97.8 98.5 98.0 97.8 Pulse 110 81 96 Resp 18 20 20 B/P (MAP) 204/96 (132) 162/82 (108) 142/73 (96) Pulse Ox 96 94 94 O2 Delivery Nasal Cannula Nasal Cannula Room Air Room Air O2 Flow Rate 2.0 3.0 12/06/19 12/06/19 07:37 08:00 Pulse Ox 94 O2 Delivery Nasal Cannula Room Air O2 Flow Rate 3.0 Intake and Output 12/05/19 12/05/19 12/06/19 15:00 23:00 07:00 Intake Total 370 ml 200 ml Output Total 300 ml Balance 370 ml -300 ml 200 ml Justicifation of Admission Dx: Justifications for Admission: Justification of Admission Dx: Yes FABI HI MD Dec 06, 2019 10:54
[2019-12-06] MEDS ORDERED: IV NORMAL SALINE 1000ML BAG 1,000 ML IV PRN ×2 (12:25)
[2019-12-06] MEDS ORDERED: ALBUMIN HUMAN 25% 200 ML IV PRN (12:30)
[2019-12-06] MEDS ORDERED: DIALYSIS PATIENT. MC PRN ×2 (12:30)
[2019-12-06] MEDS ORDERED: ALPR0.254 PO (12:33)
[2019-12-06] MEDS ORDERED: RISP1TAB43 PO (12:33)
--- NOTE | 2019-12-06 12:39 | PDOC3 ---
Discharge Summary Visit Information Date of Admission: Dec 04, 2019 Date of Discharge: Dec 06, 2019 Admitting Diagnosis Comment: Neurologic symptoms, suspect possible toxicity to one of his medications versus a psychiatric component. Final Diagnosis Metabolic encephalopathy Anxiety disorder Essential hypertension History of coronary artery disease with recent PCI of the RCA End-stage renal disease on hemodialysis Thursday and Thursday History of atrial fibrillation chronic in nature Noncardiac shaking and jerking movements currently resolved Brief Hospital Course Allergies Allergies Coded Allergies Type Severity Reaction Last Updated Verified regadenoson Allergy Severe Anaphylaxis 06/07/19 Yes Iodinated Contrast Media Allergy Intermediate 06/07/19 Yes Nitrofuran Analogues Allergy Intermediate rash 06/07/19 Yes dutasteride Allergy Intermediate rash 06/07/19 Yes finasteride Allergy Intermediate hives 06/07/19 Yes NSAIDS (Non-Steroidal Anti-Inflamma Adverse Reaction Intermediate 06/07/19 Yes bumetanide Adverse Reaction Intermediate 12/06/19 Yes chlorothiazide Adverse Reaction Intermediate 12/06/19 Yes furosemide Adverse Reaction Intermediate 12/06/19 Yes hydrochlorothiazide Adverse Reaction Intermediate 12/06/19 Yes spironolactone Adverse Reaction Intermediate 12/06/19 Yes Vital Signs Vital Signs Date Time Temp Pulse Resp B/P (MAP) Pulse Ox O2 Delivery O2 Flow Rate FiO2 12/06/19 08:00 Room Air 12/06/19 07:37 94 3.0 12/06/19 07:00 97.8 96 20 142/73 (96) 97.8 Lab Results Laboratory Tests Test 12/05/19 11:10 White Blood Count 7.7 x10^3/uL (4.0-11.0) Red Blood Count 2.92 x10^6/uL (4.30-5.70) Hemoglobin 9.4 g/dL (13.0-17.5) Hematocrit 28.4 % (39.0-53.0) Mean Corpuscular Volume 97 fL (79-100) Mean Corpuscular Hemoglobin 32 pg (25-35) Mean Corpuscular Hemoglobin Concent 33 g/dL (31-37) Red Cell Distribution Width 15.4 % (11.5-14.5) Platelet Count 172 x10^3/uL (140-400) Neutrophils (%) (Auto) 78 % (31-73) Lymphocytes (%) (Auto) 12 % (24-48) Monocytes (%) (Auto) 9 % (0-9) Eosinophils (%) (Auto) 1 % (0-3) Basophils (%) (Auto) 1 % (0-3) Neutrophils # (Auto) 6.0 x10^3/uL (1.8-7.7) Lymphocytes # (Auto) 0.9 x10^3/uL (1.0-4.8) Monocytes # (Auto) 0.7 x10^3/uL (0.0-1.1) Eosinophils # (Auto) 0.1 x10^3/uL (0.0-0.7) Basophils # (Auto) 0.0 x10^3/uL (0.0-0.2) Sodium Level 139 mmol/L (136-145) Potassium Level 4.0 mmol/L (3.5-5.1) Chloride Level 101 mmol/L (98-107) Carbon Dioxide Level 31 mmol/L (21-32) Anion Gap 7 (6-14) Blood Urea Nitrogen 46 mg/dL (8-26) Creatinine 4.1 mg/dL (0.7-1.3) Estimated GFR (Cockcroft-Gault) 14.2 BUN/Creatinine Ratio 11 (6-20) Glucose Level 128 mg/dL (70-99) Calcium Level 8.0 mg/dL (8.5-10.1) Total Bilirubin 0.4 mg/dL (0.2-1.0) Aspartate Amino Transf (AST/SGOT) 46 U/L (15-37) Alanine Aminotransferase (ALT/SGPT) 67 U/L (16-63) Alkaline Phosphatase 121 U/L (46-116) Total Protein 5.9 g/dL (6.4-8.2) Albumin 2.2 g/dL (3.4-5.0) Albumin/Globulin Ratio 0.6 (1.0-1.7) Vitamin B12 Level 934 pg/mL (247-911) Brief Hospital Course HISTORY OF PRESENT ILLNESS: The patient is a pleasant 79-year-old male who we just discharged recently. He had chest pain at that time and went for cardiac cath and had 3 stents to the RCA. Now, he is developing some neurologic symptoms. His cheek was shaking and he has intermittent shaking of his face and upper body. I discussed the case with ER physician. We are going to admit the patient and consult Neurology. A 79-year-old gentleman who has been on dialysis since May of this year. Undergoes dialysis on a Thursday, , Thursday schedule under direction of Dr. Smiley Whatley. He has been attending his dialysis treatments. I feel that he has improved with the same. His hypertension is on the basis of hypertensive nephrosclerosis. he patient is a pleasant 79-year-old man who has had 3 recent hospitalizations at [facility]. He was initially admitted on 11/10/2019 with nausea, vomiting and diarrhea. He had been slowly worsening over the few days prior to that admission. He has chronic renal failure and is maintained on hemodialysis. Prior to dialysis, he was feeling much worse. He was hospitalized and improved from that situation. He was then admitted on 11/26/2019 and transfer from [facility] Emergency Room due to an acute coronary artery syndrome. He was heparinized and ultimately received 3 stents and treatment. He was placed on aspirin and Plavix. He is maintained on anticoagulation for stroke prevention due to chronic atrial fibrillation. On this occasion, he was admitted on 12/04/2019. after developing some neurologic symptoms. He was having shaking of his face and upper body. This was not associated with altered or loss of consciousness. He was given 1 mg of IV Ativan this morning. Following this, he became sleepy and confused, although is now awake, but still confused. All the movements have completely subsided. He seemed to have some anxiety component to it and psychiatry consultation was requested The following recommendations were given by our guidance consultant: Diagnosis: Diagnosis: 1. Acute delirium, likely hypoactive likely multifactorial 2. Unspecified anxiety disorder rule out generalized anxiety 3. 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 He has a previous incident similar to that. In addition to that, CT scan is consistent with chronic microvascular changes of the brain which signify vascular etiology of underlying neurovascular disorder which predispose him for delirium. It is reasonable to add low-dose antipsychotic to resolve delirium which can be discontinued once it is resolved. Plan: Start risperidone 1 mg at bedtime further resolution of delirium. Applied delirium protocol, avoid sundowning during daytime. Avoid daytime naps. Risks, benefits, alternatives of the treatment are discussed. He is in agreement with plan and voiced understanding. Adverse drug reaction of the medication including black box warning are also discussed. Monitor for confusion, symptomatology, and safety. We will adjust medications accordingly. Avoid sedatives and hypnotics Thank you for involving inpatient care. OTF BERRIOS MD Dec 05, 2019 16:30 He received dialysis on the day of discharge and all of the concerns were a ddressed to the best of my abilities, greater than 35 minutes were spent in the discharge process with the patient in counseling coordination of care and arrangements for a safe discharge Assessment Assessment PHYSICAL EXAM Alert. Oriented to time, place and person. PERRL. EOMI. CN: no focal findings. Muscle tone: normal. Muscle strength: 5/5 DTR: 2+ Plantar reflex: flexor Gait: not examined in bed. Sensory exam: no abnormal findings. No cerebellar signs elicited. Discharge Information Condition at Discharge: Improved Follow Up: Weeks Disposition/Orders: D/C to Home Scheduled Albuterol Sulfate (Ventolin Hfa Inhaler) 18 Gm Hfa.aer.ad, 2 PUFF INH QID for SOB, Ref 0 (Reported) Entered as Reported by: ELOINA HERRERA, RN on 03/11/192202 Last Action: Reviewed on 12/04/19307 by Maisha Galindo Amlodipine Besylate (Amlodipine Besylate) 5 Mg Tablet, 5 MG PO BID for , (Reported) Entered as Reported by: CHINEDU RAM, RN on 11/26/19 105 Apixaban (Eliquis) 2.5 Mg Tablet, 2.5 MG PO BID for afib, (Reported) Next dose tonight 11/15 Entered as Reported by: JONEL CALDWELL on 11/10/192000 Last Action: Continued on 12/04/191746 by TYREE SORIANO Aspirin (Aspirin) 81 Mg Tab.chew, 1 TAB PO DAILY for BLOOD THINNER, #90 Ref 3 (Reported) Entered as Reported by: Maisha Galindo on 12/04/19755 Last Action: Continued on 12/04/191746 by TYREE SORIANO Atorvastatin Calcium (Lipitor) 80 Mg Tablet, 80 MG PO HS for FOR CHOLESTEROL, #30 Ref 0 (Reported) Entered as Reported by: Maisha Galindo on 12/04/19755 Last Action: New Order on 12/04/19755 by Maisha Galindo Budesonide/Formoterol Fumarate (Symbicort 160-4.5 Mcg Inhaler) 10.2 Gm Hfa.aer.ad, 2 PUFF IH BID for SOB, #10.6 Ref 3 (Reported) Entered as Reported by: ELOINA HERRERA RN on 03/11/192202 Last Action: Converted on 12/04/191740 by TYREE SORIANO Bupropion Hcl (Bupropion Xl) 150 Mg Tab.er.24h, 150 MG PO QAM for depression, (Reported) Next dose tomorrow 11/16 Entered as Reported by: ELOINA HERRERA RN on 03/11/192202 Cholecalciferol (Vitamin D3) (Vitamin D3) 10 Mcg Tablet, 2,000 UNITS PO DAILY for supplement, (Reported) Next dose tomorrow 11/16 Entered as Reported by: JONEL CALDWELL on 11/10/192009 Last Action: Reviewed on 12/04/19755 by Masiha Galindo Clopidogrel Bisulfate (Clopidogrel) 75 Mg Tablet, 75 MG PO DAILYWBKFT for Recent cardiac stent for 90 Days, #90 Prescribed by: KONSTANTIN VILLATORO on 11/29/19 1047 Last Action: Continued on 12/04/191746 by TYREE SORIANO Folic Acid/Vitamin B Comp W-C (Mandi-Debbie Tablet) 0.8 Mg Tablet, 0.8 MG PO DAILY for supplement, (Reported) Next dose tomorrow 11/16 Entered as Reported by: JONEL CALDWELL on 11/10/192009 Last Action: Reviewed on 12/04/19755 by Maisha Galindo Isosorbide Mononitrate (Isosorbide Mononitrate Er) 30 Mg Tab.er.24h, 30 MG PO BID for htn, (Reported) Next dose tonight 11/15 Entered as Reported by: JONEL CALDWELL on 11/10/192009 Lactobacillus Rhamnosus Gg (Culturelle) 1 Each Cap.sprink, 1 CAP PO BID for Diarrhea for 30 Days, #60 Prescribed by: FRANCISCO ALEXANDER MD on 11/16/19 1416 Last Action: Reviewed on 12/04/19755 by Maisha Galindo Losartan Potassium (Losartan Potassium) 25 Mg Tablet, 100 MG PO DAILY for Hypertension, (Reported) Do not take prior to going to dialysis Entered as Reported by: ALON BRIAN on 11/16/19 1626 Last Action: Edited on 12/04/19755 by Maisha Galindo Metoprolol Succinate (Metoprolol Succinate ( Xl )) 25 Mg Tab.er.24h, 50 MG PO HS for FOR HYPERTENSION, #30 Ref 0 (Reported) Entered as Reported by: Maisha Galindo on 12/04/19755 Last Action: Continued on 12/04/191746 by TYREE SORIANO Minocycline Hcl (Minocycline Hcl) 100 Mg Tablet, 1 TAB PO BID for ANTIBIOTIC for 30 Days, #60 Ref 0 (Reported) Entered as Reported by: Maisha Galindo on 12/04/19755 Last Action: Converted on 12/04/191746 by TYREE SORIANO [place]-3/Dha/Epa/Fish Oil (Fish Oil 1,000 mg Softgel) 1,000 Mg Capsule, 1,000 MG PO DAILY for supplement, (Reported) Next dose tomorrow 11/16 Entered as Reported by: JONEL CALDWELL on 11/10/192009 Last Action: Reviewed on 12/04/19307 by Maisha Galindo Pantoprazole Sodium (Pantoprazole Sodium ) 40 Mg Tablet.dr, 40 MG PO BID for GERD, (Reported) Next dose tomorrow 11/16 Entered as Reported by: ELOINA HERRERA RN on 03/11/192202 Last Action: Reviewed on 12/04/19755 by Maisha Galindo Risperidone (Risperdal) 1 Mg Tablet, 1 MG PO QHS for restlessness for 30 Days, #30 Prescribed by: BLAIR SHELTON MD on 12/06/19 1233 Sucralfate (Sucralfate) 1 Gm Tablet, 1 GM PO QID for gastritis, (Reported) Next dose tonight 11/15 Entered as Reported by: JONEL CALDWELL on 11/10/192009 Last Action: Reviewed on 12/04/19755 by Maisha Galindo Tamsulosin Hcl (Flomax) 0.4 Mg Cap.er.24h, 0.4 MG PO BID for BPH, (Reported) Next dose tonight 11/15 Entered as Reported by: ELOINA HERRERA RN on 03/11/192202 Last Action: Reviewed on 12/04/19307 by Maisha Galindo Scheduled PRN Alprazolam (Xanax) 0.5 Mg Tablet, 0.5 MG PO PRN Q6HRS PRN for ANXIETY / AGITATION, Ref 0 (Reported) Entered as Reported by: YI HERNANDEZ on 06/06/191601 Last Action: Reviewed on 12/04/19307 by Maisha Galindo Alprazolam (Alprazolam) 0.25 Mg Tablet, 0.25 MG PO PRN Q8HRS PRN for ANXIETY / AGITATION for 28 Days, #28 Prescribed by: BLAIR SHELTON MD on 12/06/19 1233 Discontinued Medications Diphenhydramine Hcl (Benadryl) 25 Mg Capsule, 50 MG PO PRN Q6HRS PRN for itching, (Reported) Entered as Reported by: YI HERNANDEZ on 06/06/191601 Last Action: Reviewed on 12/04/19307 by Maisha Galindo Simvastatin (Simvastatin) 20 Mg Tablet, 30 MG PO HS for FOR CHOLESTEROL, #30 Ref 0 (Reported) Next dose [facility] 11/15 Entered as Reported by: ELOINA HERRERA RN on 03/11/192202 Last Action: Discontinued on 12/04/19 0756 by Maisha Galindo Justicifation of Admission Dx: Justifications for Admission: Justification of Admission Dx: Yes BLAIR SHELTON MD Dec 06, 2019 12:39
[2019-12-06 14:33] VITALS: BP 171/93
--- NOTE | 2019-12-06 15:04 | NUR ---
SS following up with discharge planning. Discharge order on the chart for home with self care. SS phoned and faxed clinical to [facility], ; fax [phone]. SS will continue to follow for discharge planning.
--- NOTE | 2019-12-06 15:15 | PDOC ---
Renal-Progress Notes Subjective Notes Notes FEELING BETTER History of Present Illness Hx of present illness STABLE Vitals Vitals Vital Signs Date Time Temp Pulse Resp B/P (MAP) Pulse Ox O2 Delivery O2 Flow Rate FiO2 12/06/19 14:33 98.1 117 20 171/93 (119) 96 Room Air 98.1 12/06/19 07:37 3.0 Weight Weight [ ] I.O. Intake and Output Intake and Output 12/06/19 07:00 Intake Total 570 ml Output Total 300 ml Balance 270 ml Intake Oral 570 ml Output Urine Total 300 ml # Voids 3 # Bowel Movements 1 Review of Systems Constitutional: yes: alert, oriented Ears/Nose/Throat: Yes: no symptom reported Eyes: Yes: no symptom reported Pulmonary: Yes no symptom reported Cardiovascular: Yes no symptom reported Gastrointestional: Yes: no symptom reported Genitourinary: Yes: no symptom reported Musculoskeletal: Yes: no symptom reported Skin: Yes no symptom reported Psychiatric/Neurological: Yes: no symptom reported Endocrine: Yes: no symptom reported Physical Exam General Appearance: no apparent distress Skin: warm Respiratory: bilateral CTA Heart: S1S2 Abdomen: soft, bowel sounds present Genitourinary: bladder flat Extremities: pulses present Neurology: alert Musculoskeletal: Osteoarthritis Assessment Assessment IMPRESSION: 1. 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 2. Anemia of chronic kidney disease. 3. Secondary hyperparathyroidism of renal disease. 4. "Shaking." Maybe myoclonic jerks associated with end-stage renal disease. PLAN HD TODAY UF TO [facility] D/C TODAY FRANKIE IRELAND MD Dec 06, 2019 15:15
[2019-12-06] MEDS: LOSARTAN POTASSIUM 50 MG TABLET. PO SCH (15:39)
[2019-12-06] MEDS: buPROPion XL 150 MG TAB.ER.24H. PO SCH (15:39)
[2019-12-06 15:40] VITALS: BP 171/93
[2019-12-06] MEDS: amLODIPine BESYLATE 5 MG TABLET PO SCH (15:40)
[2019-12-06] MEDS: ASPIRIN CHEWABLE 81 MG TABLET. PO SCH (15:40)
[2019-12-06] MEDS: CLOPIDOGREL BISULFATE 75 MG TABLET PO SCH (15:40)
[2019-12-06] MEDS: ISOSORBIDE MONONITRATE ER 30 MG TAB.ER.24H PO SCH (15:40)
[2019-12-06] MEDS: MINOCYCLINE 100 MG CAPSULE PO SCH (15:40)
[2019-12-06] MEDS: APIXABAN 2.5 MG TABLET. PO SCH (15:40)
--- NOTE | 2019-12-06 16:22 | NUR ---
Discharge Note: DEVIN MANUEL Discharge instructions and discharge home medications reviewed with and a copy given. All questions have been answered and understanding verbalized. The following instructions and handouts were given: panic attack, anxiety, and cardiac diet. Educated to keep current hospital follow up appointment. Discontinued iv line and catheter intact. Patient discharged to home with self-care private vehicle.
[2019-12-08] MEDS ORDERED: ASPI-886 PO (08:50)
[2019-12-08] MEDS ORDERED: ISOS30TA4 PO (09:01)
== END 2019-12-06 16:31 | disposition home or self-care (01) | DRG 70 ==
LOC: 2 NORTH 02:20
PROVIDERS: ADMIT Internal Medicine; ATTEND Internal Medicine
DX: G93.41 Metabolic encephalopathy (principal); N18.6 End stage renal disease; I12.0 Hypertensive chronic kidney disease with stage 5 chronic kidney disease or end stage renal disease; I48.20 Chronic atrial fibrillation, unspecified; N25.81 Secondary hyperparathyroidism of renal origin; D63.1 Anemia in chronic kidney disease; E78.5 Hyperlipidemia, unspecified; F03.90 Unspecified dementia, unspecified severity, without behavioral disturbance, psychotic disturbance, mood disturbance, and anxiety; F17.200 Nicotine dependence, unspecified, uncomplicated; F41.1 Generalized anxiety disorder; I25.10 Atherosclerotic heart disease of native coronary artery without angina pectoris; Z79.01 Long term (current) use of anticoagulants; Z83.3 Family history of diabetes mellitus; Z95.5 Presence of coronary angioplasty implant and graft; Z99.2 Dependence on renal dialysis; Z88.5 Allergy status to narcotic agent; Z88.8 Allergy status to other drugs, medicaments and biological substances; Z91.040 Latex allergy status
CPT/HCPCS: 36415; 36600; 80053; 82607; 82805; 85025; 94640; 94760; J2060; G0378; J7613; J7626